=== PATIENT | male | born 1950 | race Caucasian/White ===

== ENCOUNTER 2022-05-13 11:06 | Outpatient (CLI) | payer MEDICARE, BC, SELFPAY ==
[2022-05-13 12:22] LABS: Albumin* 4.4 g/dL (3.3-5.0); Chloride* 110 mmol/L (96-114)
[2022-05-13 12:23] LABS: Potassium* 5.5 mmol/L (3.6-5.1); Sodium* 141 mmol/L (135-149)
[2022-05-13 12:25] LABS: Alkaline Phosphatase* 62 U/L (40-150); Aspartate Amino Transferase* 27 U/L (12-35); Bilirubin Total* 0.6 mg/dL (0.1-1.5); Blood Urea Nitrogen* 36 mg/dL (7-30); Carbon Dioxide* 23 mmol/L (20-32); Cholesterol* 125 mg/dL (90-199); Creatinine* 1.3 mg/dL (0.5-1.5); Estimated Glomerular Filt Rate 59 ml/min; Glucose* 143 mg/dL (60-115); Total Protein* 6.6 g/dL (6.0-8.3); Triglycerides* 91 mg/dL (40-149)
[2022-05-13 12:26] LABS: Alanine Aminotransferase* 21 U/L (4-50); Calcium* 9.4 mg/dL (8.4-10.6); HDL Cholesterol* 39 mg/dL (>=40); LDL Cholesterol Calculated 68 mg/dL (<100)
[2022-05-13 12:38] LABS: Creatinine Urine 261.9 mg/dL
[2022-05-13 12:46] LABS: Microalbumin Creatinine Ratio 0 mg/g (0-30); Microalbumin Urine 2 mg/dL
[2022-05-13 12:56] LABS: PSA Screen* 0.62 ng/mL (0.10-4.00)
== END 2022-05-13 11:07 | disposition home or self-care (01) ==
PROVIDERS: PCP Family Medicine; Visit Provider Family Medicine
DX: E11.9 Type 2 diabetes mellitus without complications (principal); I10 Essential (primary) hypertension; Z13.9 Encounter for screening, unspecified; N40.1 Benign prostatic hyperplasia with lower urinary tract symptoms; R35.0 Frequency of micturition; E78.5 Hyperlipidemia, unspecified
CPT/HCPCS: 80053; 80061; 82043; 82570; 84153

== ENCOUNTER 2022-09-16 08:31 | Outpatient (CLI) | payer MEDICARE, BC, SELFPAY ==
--- OUTSIDE RECORDS SUMMARY | 2022-09-20 12:26 | XMS_ITS | Encounter Summary ---
:1950 Author Organization [facility] [employer] Address [address] [address] Phone Care Team Providers Name Role Phone Nell Vanganda Raul SANCHEZ Unavailable Elsewhere, Pcp Primary Care Provider Unavailable Reason for Visit Reason Comments Sinus Pain X 4-5 DAYS, pain with some d rainage, headache, fatigue Encounter Details Date Type Department Care Team Description 12/14/[address] 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 Pulse 65 12/14/2016 12:13 PM POURING CRANE OPERATOR Temperature 36.8 ??C (98.3 ??F) 12/14/2016 12:13 PM POURING CRANE OPERATOR Respiratory Rate - - Oxygen Saturation 94% 12/14/2016 12:13 PM POURING CRANE OPERATOR Inhaled Oxygen Concentration - - Weight 123.8 kg (273 lb) 12/14/2016 12:13 PM POURING CRANE OPERATOR Height 177.8 cm (5' 10) 12/14/2016 12:13 PM POURING CRANE OPERATOR Body Mass Index 39.17 12/14/2016 12:13 PM POURING CRANE OPERATOR documented in this encounter Functional Status Functional Status Response Date of Assessment Patient's Vision Adequate to Safely Complete Daily No 09/26/2014 Activities Patient's Memory Adequate to Safely Complete Daily No 09/26/2014 Activities Cognitive Status Response Date of Assessment Patient's Judgment Adequate to Safely Complete Daily No 09/26/2014 Activities documented as of this encounter Patient Instructions Patient InstructionsArslan Rocha PA-C - 12/14/2016 12:50 PM CST Images from the original note were not included. Sinusitis (Antibiotic Treatment) The sinuses are air-filled spaces within the bones of the face. They connect to the inside of the nose.??Sinusitis??is an inflammation of the tissue lining the sinus cavity. Sinus inflammation can occur during a cold. It can also be due to allergies to pollens and other particles in the air. Sinusitiscan cause symptoms of sinus congestion and fullness. A sinus infection causes fever, headache and facial pain. There is often green or yellow drainage from the nose or into the back of the throat (post-nasal drip). You have been given antibiotics to treat this condition. Home care: ?? Take the full course of antibiotics as instructed. Do not stop taking them, even if you feel better. ?? Drink plenty of water, hot tea, and other liquids. This may help thin mucus. It also may promote sinus drainage. ?? Heat may help soothe painful areas of the face. Use a towel soaked in hot water. Or, international relations teacher theshower and direct the hot spray onto your face. Using a vaporizer along with a menthol rub at night may also help.? An??expectorant??containing guaifenesin may help thin the mucus and promote drainage from the sinuses. ?? Lqra-mkv-[id number]??decongestants??may be used unless a similar medicine was prescribed. Nasal sprays work the fastest. Use one that contains phenylephrine or oxymetazoline. First blow the nose gently. Then use the spray. Do not use these medicines more often than directed on the label or symptoms may get worse. You may also use tablets containing pseudoephedrine. Avoid products that combine ingredients, because side effects may be increased. Read labels. You can also ask the pharmacist for help. (NOTE:??Persons with high blood pressure should not use decongestants. They can raise blood pressure.) ?? Qrjw-fdl-mrrpobn??antihistamines??may help if allergies contributed to your sinusitis. ? Do not use nasal rinses or irrigation during an acute sinus infection, unless told to by your health care provider. Rinsing may spread the infection to other sinuses. ?? Use acetaminophen or ibuprofen to control pain, unless another pain medicine was prescribed. (If you have chronic liver or kidney disease or ever had a stomach ulcer, talk with your doctor before using these medicines. Aspirin should never be used in anyone under 18 years of age who is ill with a fever. It may cause severe liver damage.) ?? Don't smoke. This can worsen symptoms. Follow-up care Follow up with your healthcare provider or our staff if you are not improving within the next week. When to seek medical advice Call your healthcare provider if any of these occur: ?? Facial pain or headache becoming more severe ?? Stiff neck ?? Unusual drowsiness or confusion ?? Swelling of the forehead or eyelids ?? Vision problems, including blurred or double vision ?? Fever of??100.4??F (38??C)??or higher, or as directed by your healthcare provider ?? Seizure ?? Breathing problems ?? Symptoms not resolving within 10 days Date Last Reviewed: 01/23/2015 ?? [id number] [employer]. [address] [place] [address]. All rights reserved. This information is not intended as a substitute for professional medical care. Always follow your healthcare professional's instructions. 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 fluticasone propionate Place 2 Sprays into 16 g 0 01/2017 (FLONASE) 50 MCG/ACT both nostrils one nasal spray time a day. Shake gently before each use; alternate nostrils with each spray. azithromycin (ZITHROMAX) Take two tablets (500 6 Tab 0 12/14/2016 12/19/2016 250 MG tablet mg) on day 1, then take one tablet (250 mg) on days 2-5. documented in this encounter Progress Notes Arslan Rocha PA-C - 12/14/2016 12:54 PM CST HISTORY OF PRESENT ILLNESS: Jose Pabon is a 66 year old male who presents for evaluation of sinusitis. He had sinus and nasal congestion, nasal blockage, postnasal drip, headache, bilateral sinus pain and chills for 7 days. He denies a history of wheezing, shortness of breath and chest pain. Symptoms have worsened. Notes: noother symptoms. Previous treatments: rest and fluids Past Medical History Diagnosis Date ??? Diabetes mellitus type II ??? Eczema Hands and elbows ??? Hypertension ??? Obesity ??? Obstructive sleep apnea ??? Pancreatitis, acute 09/22/2011 Outpatient Prescriptions Marked as Taking for the 12/14/16 encounter (Office Visit) with Carlos, [facility] Urgent Medication Sig ??? azithromycin (ZITHROMAX) 250 MG tablet Take two tablets (500 mg) on day 1, then take one tablet (250 mg) on days 2-5. ??? fluticasone propionate (FLONASE) 50 MCG/ACT nasal spray Instill 2 Sprays nasally one time a day.Shake gently before each use; alternate nostrils with each spray. ??? cetirizine (ZYRTEC) 10 MG tablet Take 1 Tab by mouth one time a day. ??? metoprolol tartrate (LOPRESSOR) 50 MG tablet Take 1 Tab by mouth two times a day. ??? metFORMIN-XR (GLUCOPHAGE-XR) 500 MG 24 hour tablet TAKE ONE TABLET EVERY MORNING WITH BREAKFAST.SWALLOW WHOLE, DO NOT CRUSH, DIVIDE, OR CHEW. ??? glyBURIDE (DIABETA) 5 MG tablet TAKE ONE TABLET BY MOUTH EVERY MORNING WITH BREAKFAST ??? amLODIPine (NORVASC) 2.5 MG tablet Take 1 Tab by mouth one time a day. ??? Magnesium 250 MG Take 250 mg by mouth one time a day. ??? Magnesium 100 MG Cap Take 1 Tab by mouth as needed. ??? Misc. Devices Misc by Does not apply route. ??? betamethasone dipropionate 0.05 % cream Apply to affected area twice daily as needed ??? COMPOUNDED RX by INTRACAVERNOSAL route as needed (erectile dysfunction). ??? ARNAV CONTOUR TEST STRIP strip Test four times daily ??? Lancet Devices MISC 1 Each by Does not apply route four times a day. ??? Zinc 50 MG TABS Take 1 Tab by mouth as needed. ??? CHILDRENS ASPIRIN 81 MG chewable tablet 81 mg, ORAL, DAILY, Refills: 0, 02/06/09 18:34:01, Substitution Permitted, current med (Hx) ??? multivitamin (TAB-A-LISA) TABS 1 tablet, ORAL, DAILY, Refills: 0, 02/06/09 18:34:57, Substitution Permitted, current med (Hx) Allergies Allergen Reactions ??? Penicillins Anaphylaxis ??? Band Aid [Adhesive Tape] RASH History Smoking Status ??? Never Smoker Smokeless Tobacco ??? Never Used REVIEW OF SYSTEMS: Constitutional: feels ill and chills Head/Eyes/Ears/Nose/Throat: nasal congestion Cardiovascular: no chest pains or palpitations Respiratory: no cough or shortness of breath Gastrointestinal: no dysphagia, abdominal pain, nausea, vomiting, change in bowel habits, melena, hematochezia Genitourinary: no change in urination or blood in urine PHYSICAL EXAM: Vitals: 12/14/16 1213 BP: 128/71 Pulse: 65 Temp: 36.8 ??C (98.3 ??F) TempSrc: Tympanic Height: 5' 10 (1.778 m) Weight: 273 lb (123.8 kg) SpO2: 94% BMI (Calculated): 39.17 GENERAL APPEARANCE: Healthy; alert and oriented X3; no acute distress HEAD: Atraumatic; normocephalic; without lesions EYES: Conjunctiva, corneas and eyelids normal; pupils equal, round EARS: External ears normal; ear canals normal; tympanic membranes normal NOSE: POSITIVES: mucosa edematous MOUTH/OROPHARYNX: Normal lips, tongue, buccal mucosa and pharynx without lesions NECK: Supple with no nodes, jugular venous distention, thyromegaly or bruits LUNGS: Chest symmetric with normal anteroposterior diameter and no deformities; normal respiratory rate and rhythm, with no wheezes, rales or rubs. HEART: Regular rhythm and rate; S1 and S2 normal; no murmurs, heaves, thrills, clicks or rubs ASSESSMENT: (J32.9, B96.89) Bacterial sinusitis (primary encounter diagnosis) PLAN: Symptomatic therapy including over the counter medications, fluids, and rest Begin: Zithromax for 5 days. Begin: Flonase for 4 weeks Begin: Zyrtec for 4 weeks. Tylenol for headaches. Follow up if symptoms worsen if no improvements in symptoms. 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 10/10/152023 [place] [address] documented as of this encounter
--- OUTSIDE RECORDS SUMMARY | 2022-09-20 12:26 | XMS_ITS | Encounter Summary ---
:1950 Author Organization [employer] Address [address] [address] Phone Care Team Providers Name Role Phone Richardson Graham MD Primary Care Provider Reason for Referral Outgoing Referral - Provider Request (Routine) - Exempt Specialty Diagnoses / Procedures Referred By Contact Refer red To Contact Gastroenterology Diagnoses Dysphagia, unspecified dysphagia Richardson Graham MD [address] [place] [address] Referral ID Status Reason Start Date Expiration Date Visits Requ ested Visits Authorized [id number] Exempt 09/20/2015 09/20/2015 1 1 Comments Reason for referral: GI consult in [facility] [place] for dysphagia Referred to (facility name): ENTER this detail in Location/POS field above Comments section if known. Provider requested: ENTER this detail in To field above Comments section if known. --If unable to find facility or provide r, please enter all known details in this comments section. Referral made at the request of [facility] AND SIZER (Routine) - Closed Specialty Diagnoses / Procedures Referred By Contact Refer red To Contact General Surgery Diagnoses Sebaceous cyst Richardson Graham MD [facility] [address] 2023 [facility] [place] [address] [place] [address] Phone: Fax: Referral ID Status Reason Start Date Expiration Date Visits Requ ested Visits Authorized [id number] Closed 09/20/2015 04/02/2017 1 1 Comments Reason for Referral: Remove small sebace ous cyst mid back AND SIZER Reason for Visit Reason Comments Physical colonoscopy 2011 Imm/Inj flu Encounter Details Date Type Department Care Team Description 09/20/2015 Office Visit Richardson Cristina, PE (physi kavitha exam), annual (Primary Dx); CLINIC FAMILY MD Type 2 diabetes mellitus without complic ation (HCC); MEDICINE [address] Prostate cancer screening; 2023 [facility] Low vitamin D level; Street [place] Elevated parathyroid hormone ; [place] [phone] Sebaceous cyst; [phone] Need for prophy lactic vaccination and inoculation against influenza; (Work) Dysphagia, unspecified dysphagia; [phone] Peripheral poly neuropathy (Fax) Social History Tobacco Use Types Packs/Day Years Used Date Smoking Tobacco: Never Smokeless Tobacco: Never Alcohol Use Standard Drinks/Week Comments No 0 (1 standard drink = 0.6 oz pure alcoho l) occasional Sex Assigned at Date Recorded Not on file documented as of this encounter Last Filed Vital Signs Vital Sign Reading Time Taken Comments Blood Pressure 124/76 09/20/2015 8:25 AM [facility] Pulse 62 09/20/2015 8:25 AM [facility] Temperature - - Respiratory Rate - - Oxygen Saturation - - Inhaled Oxygen Concentration - - Weight 112 kg (247 lb) 09/20/2015 8:25 AM [facility] Height 177.8 cm (5' 10) 09/20/2015 8:25 AM [facility] Body Mass Index 35.44 09/20/2015 8:25 AM [facility] documented in this encounter Functional Status Functional Status Response Date of Assessment Patient's Vision Adequate to Safely Complete Daily No 09/26/2014 Activities Patient's Memory Adequate to Safely Complete Daily No 09/26/2014 Activities Cognitive Status Response Date of Assessment Patient's Judgment Adequate to Safely Complete Daily No 09/26/2014 Activities documented as of this encounter Ordered Prescriptions Prescription Sig Dispensed Refills Start Date End Date influenza virus vaccine Inject 0.5 mL into 0.5 mL 0 06/201509/20/2015 sam, Age 3-64 years, the muscle one time (FLUZONE) 0.5 for 1 dose. MLIndications: Need for prophylactic vaccination and inoculation against influenza documented in this encounter Progress Notes Richardson Graham MD - 09/20/2015 2:[address] [facility] ADDENDED COPY Patient Name: ALINE PABON Date of Service: 09/20/2015 : 1950 Age: 65Y Sex: M Site MRN: Patient Loc/Room #: [facility] FP/ Provider: Richardson Graham MD, Family Practice HISTORY AND PHYSICAL SITE: [facility] PROBLEMS: 1. Well male examination. 2. Diabetes. 3. Hypertension. 4. Leg swelling. 5. Dysphasia. 6. Renal insufficiency. SUBJECTIVE: Arsh overall has been quite healthy. He has diabetes. He is at goal for all 8 parameters, but we do notice his A1c has come up a little bit. He has decreased his metformin to 500 mg 1/2 tablet daily as recommended from nephrology this past spring. I do think with his creatinine the way it is he could take a little bit more metformin. He has been off the glyburide also because he had some lows and because of his having lost weight and feeling well; his A1c has been excellent here this past spring. Options are discussed. He has lost 12 pounds of weight we are going to recheck his A1c now.If the patterns downward I think we can just stay with what he is doing and see if we cannot get hisA1c down a little bit further with weight loss. In the long run if it stays a little high, trouble getting down, I think it is very safe for him to increase the metformin to a full tablet. He could consider either Invokana or Januvia; we went over some of the side effects, or Victoza or he could try again a very low dose of glyburide, but I would suggest instead using the Amaryl 2 mg just 1/2 tablet.I think that it would bring it down nicely without having too many lows. He is going to see what hisnumbers are and he is going to work on the weight loss and then we will look at some options on adjusting medication. Renal insufficiency. His creatinine has remained relatively stable. He has seen nephrology. I think we just monitor this. He is drinking good amount of water. Constipation. He has noticed his stools are quite hard. When he took a fair amount of celery it seemed to clear up. He is using a bran product on a daily basis and bran muffins, drinking a good amount of water, but despite this he has very hard her stools. Will recheck his TSH. Encouraged him to continue drinking water, plenty of walking and exercise and continue a bran product. I think if the bran muffins are not working he should use MiraLAX on a daily basis. He had a colonoscopy in 2011. He has had episodes of dysphagia last year. Last summer he was out fishing and actually food got stuck in his throat. He just could not swallow, severe spasm for quite a few hours. He has been seen in our endoscopy here last in 2011. Biopsies were done then. We feel it is time for him to get a second opinion and we are setting appointment in [place] for an opinion concerning this. I note his endoscopy report, esophageal biopsies showed no evidence of eosinophilic esophagitis and the actual report showed normal endoscopy. PFSH including medications updated in the EHR. REVIEW OF SYSTEMS: A 10-point review is otherwise negative. No chest pain on exertion. He was working very hard this summer and just physically felt tired. No increased shortness of breath. No difficulty with vision, hearing, headaches. Does have the constipation. Urinating without difficulty. He is working with Dr. Tovar concerning ED. He felt some swelling of his legs, but did not notice any swelling. On examination today, he does have some 1+ ankle edema and I think it is due to the amlodipine. We talked about being careful with salt and using support hose, leg elevation when he can. In the long run if this bothers him we will try an alternative amlodipine. At this point it is only mild and I think we can continue on current medication. We will include a B12 and TSH to look for the possibility ofperipheral neuropathy. I checked his feet and there was good circulation. EXAM: He is alert and comfortable with blood pressure at 124/76, pulse 62, weight is 247, down actually up 12 pounds from just a few weeks ago. HEENT - TMs pearly. Nose/throat - normal. Thyroid - normal. Carotid pulses are full, no bruits. Lungs are clear. Heart - regular without murmur. Skin - he does have a small sebaceous cyst mid back. He would like to have this removed. No other lesions. ASSESSMENT: 1. Cardiac risk - negative smoking, negative blood pressure. Cholesterol is very good. We did offer him a cardiac evaluation if he is concerned. At this point I think he is doing very well and it is optional. 2. Cancer screen - he has had a PSA that is normal. In February we will repeat that at his yearly examination now and his colonoscopy was normal in 2011. I looked at his skin and there are no lesions. Immunizations are up to date except for flu shot today. PROBLEMS: 1. Dysphagia. Appointment in [place] [facility]. 2. Sebaceous cyst on his back. Appointment with surgery for removal. 3. Mild ankle swelling, likely due to the amlodipine. We talked about treatment. 4. Diabetes. Overall meeting all parameters, but I think it would be worthwhile for him to continue weight loss. Consider alternative medications as above if his A1c is not coming down. 5. Hypertension, good control. 6. ED followed by Dr. Tovar. 7. Renal insufficiency, stable with current treatment and he is drinking enough water. ADDENDUM Positive family history of some prostate cancer. He would like a prostate exam. It is completed. Prostate is flat. It is 1+. No nodularity. Normal consistency. No rectal masses. Richardson Graham MD [facility] [address] cc: /RFM Job ID: [id number] /lb Document ID: [id number] A: 09/20/2015 tjw(add) AND SIZER documented in this encounter Miscellaneous Notes Clinical Note - Lucille Alarcon LPN - 09/08/2015 10:06 AM CST This chart was prepped for visit by Lucille Alarcon LPN on 09/08/2015. AND SIZER documented in this encounter Plan of Treatment Not on filedocumented as of this encounter Procedures Procedure Name Priority Date/Time Associated Diagnosis Comme nts VITAMIN D TOTAL Routine 09/20/2015 9:31 Low vitamin D level Re sults for this AM [facility] procedure are i n the results section. GARCIA PARATHYROID Routine 09/20/2015 9:31 Elevated parathyroid Results for this HORMONE (PTH), S AM [facility] hormone procedure a re in the results section. BASIC METABOLIC Routine 09/20/2015 9:31 Type 2 diabetes Result s for this PANEL AM [facility] mellitus without procedure a re in complication (HCC) the resul ts section. HEMOGLOBIN A1C Routine 09/20/2015 9:31 Type 2 diabetes Results for this AM [facility] mellitus without procedure a re in complication (HCC) the resul ts section. PSA DIAGNOSTIC Routine 09/20/2015 9:31 Prostate cancer Results for this AM [facility] screening procedure are i n the results section. THYROID STIMULATING Routine 09/20/2015 9:31 Peripheral Resul ts for this HORMONE AM [facility] polyneuropathy procedure are in the results section. LDL CHOLESTEROL Routine 09/20/2015 9:31 Type 2 diabetes Result s for this AM [facility] mellitus without procedure a re in complication (HCC) the resul ts section. VITAMIN B12 Routine 09/20/2015 9:31 Peripheral Results for this AM [facility] polyneuropathy procedure are in the results section. documented in this encounter Results TSH (09/20/2015 9:31 AM [facility] SI[facility]ER) athologist Signature TSH 2.08 0.40 - 3.99 09/20/2015 [facility] uIU/mL 1:44 PM [facility] Specimen Anatomical Collection Method Collection Time Receive d Time (Source) Location / / Volume Laterality 09/20/2015 9:31 AM 5 [facility] 12:58 PM [facility]ER Richardson Graham MD EC CHEMISTRY ORDERABLES ABN Performing Organization Address City/State/ZIP Code Phon e Number [facility] [address] [place] [address] LABORATORY (ABNORMAL) VITAMIN B12 (09/20/2015 9:31 AM [facility]BAND SIZER) athologist Signature VITAMIN B12 1,157 (H) 213 - 816 09/20/[address] pg/ml 2:03 PM [facility]AND SIZ[facility] LABOR[facility]ORY Specimen Anatomical Collection Method Collection Time Receive d Time (Source) Location / / Volume Laterality 09/20/2015 9:31 AM 5 [facility] 12:58 PM [facility] SI[facility]ER Richardson Graham MD EC CHEMISTRY ORDERABLES Performing Organization Address City/[facility]/ZIP Code Phon e Number [facility] [address] [place], [place] [address] LABORATORY [place] PARATHYROID HORMONE (PTH), S (09/20/2015 9:31 AM [facility] SIZER) athologist Signature [place] Parathyroid 64 15 - 65 09/21/2015 [facility] D Hormone (PTH), S pg/mL 9:32 AM [facility] FEED Comment: Test Performed by: [facility] [address] [place] [address] Media Reporter: Jovanni Cummings II, M.D., Ph.D. Specimen Anatomical Collection Method Collection Time Receive d Time (Source) Location / / Volume Laterality 09/20/2015 9:31 AM 5 [facility] 12:54 PM [facility] SIZER Richardson Graham MD EC LAB SEND OUT ORDERABLES Performing Organization Address City/[facility]/ZIP Code Phon e Number [facility] FEED (ABNORMAL) VITAMIN D TOTAL (09/20/2015 9:31 AM [facility]BAND SIZER) athologist Signature Vitamin D 23 (L) 30 - 96 09/20/2015 [facility] Total ng/mL 8:00 PM [facility] CLINICAL LABORATORY Comment: ??[facility] Reference Range Deficiency ?<10 ?? ng/mL Insufficiency ?? 10-29 ng/mL Sufficiency ? 30-96 ng/mL Toxicity ?>96 ?? ng/mL Specimen Anatomical Collection Method Collection Time Receive d Time (Source) Location / / Volume Laterality 09/20/2015 9:31 AM 5 7:11 [facility] PM [facility]ZER Richardson Graham MD EC LAB SEND OUT ORDERABLES A BN Performing Organization Address City/[facility]/ZIP Code Phon e Number [facility] CLINICAL LABORATORY [address] [place] [address] PSA (09/20/2015 9:31 AM [facility] SIZER) athologist Signature Prostate 0.49 0.00 - 09/20/2015 [facility] Specific 4.00 ng/mL 2:03 PM [facility] Antigen LABORATORY Comment: PSA values determined on patient samples by differing testing procedures cannot be directly compared with one ano ther. [facility] use [employer] Analyzers utilizing Chemiluminescence Microparticle Immunoassay Technology (CMIA). Specimen Anatomical Collection Method Collection Time Receive d Time (Source) Location / / Volume Laterality 09/20/2015 9:31 AM 5 [facility] 12:58 PM [facility] SIZER Richardson Graham MD EC CHEMISTRY ORDERABLES ABN Performing Organization Address City/[facility]/ZIP Code Phon e Number [facility] [address] [place], [place] [address] LABORATORY LDL CHOLESTEROL (09/20/2015 9:31 AM [facility] SIZER) athologist Signature LDL Cholesterol 102 mg/dL 09/20/2015 [facility]. 10:[address] [facility] LABORATORY Comment: LDL Cholesterol Reference Ranges Optimal: ?<100 ? mg/dL Near Optimal: ? 100-129 ??mg/dL Borderline High: ??130-159 ??mg/dL High: ? 160-189 ??mg/dL Very High: ?>189 ? mg/dL Specimen Anatomical Collection Method Collection Time Receive d Time (Source) Location / / Volume Laterality 09/20/2015 9:31 AM 5 9:41 ENDBAND SIZER AM ENDBAND SIZER Richardson Graham MD EC CHEMISTRY ORDERABLES ABN Performing Organization Address City/[facility]/ZIP Code Phon e Number [facility] [address] [place] [address] LABORATORY (ABNORMAL) BASIC MET PROF (09/20/2015 9:31 AM [facility]BAND SIZER) athologist [facility] SODIUM 139 134 - 143 09/20/2015 [facility] mEq/L 10:22 AM [facility] LABORATORY POTASSIUM 4.6 3.4 - 5.1 09/20/2015 [facility] mEq/L 10:22 AM [facility] LABOR[facility]ORY Chloride 103 99 - 110 09/20/2015 [facility] mEq/L 10:22 AM [facility] LABOR[facility]ORY CO2 27 19 - 29 09/20/2015 [facility] mEq/L 10:22 AM [facility] LABORATORY BUN 26 (H) 5 - 24 09/20/2015 [facility] mg/dL 10:22 AM [facility] LABORATORY Creatinine 1.71 (H) 0.70 - 09/20/2015 [facility] 1.20 mg/dL 10:22 AM [facility] LABORATORY GFR CALC 40 (A) 09/20/2015 [facility] 10:22 AM [facility] LABORATORY Comment: GFR Normal: >60 mL/min/1.73 m2 Calcium 9.7 8.4 - 10.5 mg/dL 09/20/2015 10:22 AM [facility] LAB[facility]AT[facility] ANION GAP 9 3 - 15 09/20/2015 10:22 AM [facility] LAB[facility] GLUCOSE 349 (H) 70 - 100 mg/dL 09/20/2015 10:22 AM [facility]BAND SIZER E [facility] LABORATORY Specimen Anatomical Collection Method Collection Time Receive d Time (Source) Location / / Volume Laterality 09/20/2015 9:31 AM 5 9:41 ENDBAND SIZER AM [facility]BAND SIZER Richardson Graham MD EC CHEMISTRY ORDERABLES Performing Organization Address City/State/ZIP Code Phon e Number [facility] [address] [place] [address] LABORATORY (ABNORMAL) A1C(HGB AIC) (09/20/2015 9:31 AM [facility]BAND SIZER) athologist Signature A1C (HGB AIC) 9.8 (H) 4.0 - 6.0 09/20/2015 ST. % 9:[address] [facility] LABORATORY Est Average 235 mg/dL 09/20/2015 [facility] Glucose 9:[address] [facility] Comment: According to ADA guidelines, the estimat ed average glucose (eAG) will be calculated for all HgbA1c results. Specimen Anatomical Collection Method Collection Time Receive d Time (Source) Location / / Volume Laterality 09/20/2015 9:31 AM 5 9:41 [facility] SIZER AM [facility]BAND SIZER Richardson Graham MD EC CHEMISTRY ORDERABLES ABN Performing Organization Address City/State/ZIP Code Phon e Number [facility] [address] [place] [address] LABORATORY documented in this encounter Visit Diagnoses Diagnosis PE (physical exam), annual - Primary Routine general medical examination at a health care facility Type 2 diabetes mellitus without complic ation (HCC) Prostate cancer screening Special screening for malignant neoplasm of prostate Low vitamin D level Elevated parathyroid hormone Unspecified endocrine disorder Sebaceous cyst Need for prophylactic vaccination and in oculation against influenza Dysphagia, unspecified dysphagia Peripheral polyneuropathy Unspecified hereditary and idiopathic pe ripheral neuropathy documented in this encounter Discontinued Medications Medication Sig Discontinue Reason Start Date End Date glyBURIDE (DIABETA) 5 TAKE ONE TABLET BY Changed to an 04/03/2015 09/20/2015 MG tablet MOUTH EVERY MORNING alternate therapy WITH BREAKFAST documented as of this encounter Historical Medications This list may reflect changes made after this encounter. Medication Sig Dispensed Refills Start Date End Date Magnesium 250 MG Take 250 mg by mouth one time 0 a day. added in this encounter Orders Immunization/Injection Count Last Ordered Date First O rdered Date FLU VACC, QUAD, PF 1 09/20/2015 IMMUNIZATION ADMIN - INFLUENZA 1 09/20/2015 REFERRAL Count Last Ordered Date First Ordered Date APPT WITH [facility] 1 2014 APPT WITH [facility]AL [facility]GERY [facility] 1 015 documented in this encounter Care Teams Optical Glass Inspector Relationship Specialty Start Date End Date Richardson Graham MD PCP - General Family Medicine 07/19/14 09/22/[address] [place] [address] documented as of this encounter
--- OUTSIDE RECORDS SUMMARY | 2022-09-20 12:26 | XMS_ITS | Encounter Summary ---
:1950 Author Organization [employer] Address [address] [address] Phone Care Team Providers Name Role Phone Richardson Graham MD Primary Care Provider Reason for Visit Reason Comments Erectile Dysfunction Prostate Problem hx of BPH Encounter Details Date Type Department Care Team Description 06/12/2015 Office Visit [facility] QualeyFelice, BPH (benign prostatic hyperp lasia) (Primary Dx); [address] [facility] Other male erectile dysfunction [place] [address] 2023 [facility] [phone] [place] [address] Social History Tobacco Use Types Packs/Day Years Used Date Smoking Tobacco: Never Smokeless Tobacco: Never Alcohol Use Standard Drinks/Week Comments No 0 (1 standard drink = 0.6 oz pure alcoho l) occasional Sex Assigned at Date Recorded Not on file documented as of this encounter Last Filed Vital Signs Vital Sign Reading Time Taken Comments Blood Pressure 136/91 06/12/2015 3:38 PM CDT Pulse 58 06/12/2015 3:38 PM CDT Temperature - - Respiratory Rate 16 06/12/2015 3:27 PM CDT Oxygen Saturation - - Inhaled Oxygen Concentration - - Weight - - Height - - Body Mass Index - - documented in this encounter Functional Status Functional Status Response Date of Assessment Patient's Vision Adequate to Safely Complete Daily No 09/26/2014 Activities Patient's Memory Adequate to Safely Complete Daily No 09/26/2014 Activities Cognitive Status Response Date of Assessment Patient's Judgment Adequate to Safely Complete Daily No 09/26/2014 Activities documented as of this encounter Progress Notes Felice Tovar MD - 06/13/2015 11:55 AM CDT [facility] Patient Name: ALINE PABON Date of Service: 06/12/2015 : 1950 Age: 65Y Sex: M Site MRN: Patient Loc/Room #: BRDUR/ Provider: Felice Tovar MD, Urology OFFICE NOTE SITE: [facility] SUBJECTIVE: Arsh is here with chief complaint of erectile dysfunction. He has received Trimix from [facility]. He has diabetes and history of chronic renal failure. PSA was excellent in February of 2015 at 0.46. Problem list and medications reviewed. He denies any significant lower urinary tract symptoms. Overall, he looks and feels well. Quality of life score due to his urinary symptoms of 1. No pain, hematuria, or problems with bowel movements. REVIEW OF SYSTEMS: Otherwise negative. The technique of penile injection therapy discussed with the model. The patient has tried this at home without much success. His is in attendance to learn the technique as well. OBJECTIVE: On examination, Arsh appears pleasant, alert, in no acute distress. Abdomen is slightly protuberant. Penis and scrotal contents - normal. Blood pressure 157/85, pulse 57, respiratory rate 16; 0.4 mL of Trimix was injected in the right corpus with an excellent result. PLAN: The patient was told to call if he has prolonged erection. Otherwise he will return here on a p.r.n. basis. In addition to the injection, a 15 minute appointment, over 50% spent discussing technique and coordinating care. Felice Tovar MD [facility] Urology cc: /BJQ Job ID: [id number] /lots Document ID: [id number] documented in this encounter Plan of Treatment Not on filedocumented as of this encounter Procedures Procedure Name Priority Date/Time Associated Diagnosis Comme nts INJECTION, SUBQ/IM Routine 06/12/2015 8:42 PM Other male erect ile CDT dysfunction URINALYSIS, REFLEX Routine 06/12/2015 3:20 PM BPH (benign Res ults for this TO CULTURE CDT prostatic procedure are i n hyperplasia) the results section. documented in this encounter Results UA TO CULTUR PRN (06/12/2015 3:20 PM CDT) [facility] Method Time Signature Type CVMS 06/12/[address] 3:28 PM CDT [facility] Color Yellow Yellow 06/12/[address] 3:29 PM CDT [facility] Appearance Clear Clear 06/12/[address] 3:29 PM T [facility] Urine Specific 1.015 1.003 - 06/12/[address] [place] 1.035 3:29 PM T [facility] Urine pH 5.0 5.0 - 8.0 06/12/[address] 3:29 PM CDT [facility] Urine Leukocyte Neg Neg 06/12/2015 ST. Esterase 3:29 PM T [facility] Urine Nitrites Neg Neg 06/12/[address] 3:29 PM T [facility] Urine Protein Neg Neg-Trace 06/12/[address] mg/dL 3:29 PM T [facility] Urine Glucose Neg Neg mg/dL 06/12/[address] 3:29 PM T [facility] Urine Ketone Neg Neg mg/dL 06/12/[address] 3:29 PM T [facility] Microscopic Not Indicated 06/12/2015 ST. Exam: 3:29 PM T [facility] Comment: Please Note: A routine urine not reflexing to a micro scopic exam automatically means the dipstick blood t est is negative. Urine WBC's Not Indicated 0 - 8 /HPF 06/12/2015 3:29 PM [facility] Urine RBC's Not Indicated 0 - 3 /HPF 06/12/2015 3:29 PM Jak [place] CDT [facility] Urine Culture Not Indicated 06/12/2015 3:[address] [facility] Reflex [facility] Specimen Anatomical Collection Method Collection Time Receive d Time (Source) Location / / Volume Laterality COLLAR STARCHER 06/12/2015 3:20 PM 06/12/20 15 3:28 MID-STREAM URINE CDT PM CDT SPECIMEN OBTAINED BY CLEAN CATCH PROCEDURE / Unknown Felice Tovar MD EC URINE ORDERABLES Performing Organization Address City/State/ZIP Code Phon e Number [facility] documented in this encounter Visit Diagnoses Diagnosis BPH (benign prostatic hyperplasia) - Radha edilberto Unspecified hyperplasia of prostate with out urinary obstruction and other lower urinary tract symptoms (LUTS) Other male erectile dysfunction documented in this encounter Discontinued Medications Medication Sig Discontinue Reason Start Date End Date losartan (COZAAR) 25 MG Take 1 Tab by mouth Other 03/02/2015 06/12/2015 tablet one time a day. documented as of this encounter Orders Procedures Count Last Ordered Date First Ordered Date INJECTION, SUBQ/IM 1 06/12/2015 documented in this encounter Care Teams Filler Spreader Relationship Specialty Start Date End Date Richardson Graham MD PCP - General Family Medicine 07/19/14 09/22/[address] [id number] documented as of this encounter
--- OUTSIDE RECORDS SUMMARY | 2022-09-20 12:26 | XMS_ITS | Encounter Summary ---
:1950 Author Organization [employer] Address [address] [address] Phone Care Team Providers Name Role Phone Richardson Graham MD Primary Care Provider Reason for Visit Reason Comments Referral Critical access hospital Encounter Details Date Type Department Care Team Description 09/21/2015 Notes [facility] Geovanna Lutz Ref[facility] 2023 [facility] [place], [place] [address] Social History Tobacco Use Types Packs/Day Years Used Date Smoking Tobacco: Never Smokeless Tobacco: Never Alcohol Use Standard Drinks/Week Comments No 0 (1 standard drink = 0.6 oz pure alcoho l) occasional Sex Assigned at Date Recorded Not on file documented as of this encounter Functional Status Functional Status Response Date of Assessment Patient's Vision Adequate to Safely Complete Daily No 09/26/2014 Activities Patient's Memory Adequate to Safely Complete Daily No 09/26/2014 Activities Cognitive Status Response Date of Assessment Patient's Judgment Adequate to Safely Complete Daily No 09/26/2014 Activities documented as of this encounter Progress Notes Geovanna Lutz - 09/21/2015 9:38 AM CST Referral received and faxed to Critical access hospital. Patient will receive a call to schedule appointment from that facility once patient's chart/ information have been reviewed. For questions, please have patient call [phone] to speak with scheduling office. Thank you R BUILDER documented in this encounter Plan of Treatment Not on filedocumented as of this encounter Visit Diagnoses Not on filedocumented in this encounter Care Teams Manager Quality Compliance Relationship Specialty Start Date End Date Richardson Graham MD PCP - General Family Medicine 07/19/14 09/22/[address] [address] documented as of this encounter
--- OUTSIDE RECORDS SUMMARY | 2022-09-20 12:26 | XMS_ITS | Encounter Summary ---
:1950 Author Organization [employer] Address [address] [address] Phone Care Team Providers Name Role Phone Richardson Graham MD Primary Care Provider Brenda Vang-Raul Unavailable Encounter Details Date Type Department Care Team Description 12/19/[address] [facility] Sachin Naik, Outpatient Tab garcia CNA 2023 [place], [place] [id number] Social History Tobacco Use Types Packs/Day Years [...] 09/26/2014 Activities documented as of this encounter Miscellaneous Notes Telephone Encounter - Becca Naik CNA - 12/19/2015 10:37 AM BURRER MACHINE Patient is due for a Lab only; fasting for diabetes and hypertension. I have attempted to contact this patient by phone to notify of the need for a CDM visit with the following results: patient declined appointment with the reason given of will call on 01/04.. ER MACHINE documented in this encounter Plan of Treatment Not on filedocumented as of this encounter Visit Diagnoses Not on filedocumented in this encounter Care Teams Tool And Die Technician Relationship Specialty Start Date End Date Richardson Graham MD PCP - General Family Medicine 07/19/14 09/22/[address] [id number] Brenda Vang PA-C Family Medicine 10/10/152023 [place] [address] documented as of this encounter
--- OUTSIDE RECORDS SUMMARY | 2022-09-20 12:26 | XMS_ITS | Encounter Summary ---
:1950 Author Organization [employer] Address [address] [place] [phone] Phone Care Team Providers Name Role Phone Richardson Graham MD Primary Care Provider Brenda Vang PA-Raul Unavailable Reason for Visit Reason Onset Date Comments Refill Request 03/03/2016 metformin and metopr olol Encounter Details Date Type Department Care Team Description 03/03/[address] [facility] NURSE Grant Graham MD Refill Request [facility] [address] [facility] (metformin and [address] metoprolol) [place] [address] [place] [id number] (Wo rk) Social History Tobacco Use Types Packs/Day Years [...] Sig Dispensed Refills Start Date End Date metFORMIN-XR TAKE ONE TABLET EVERY 90 Tab 2 03/04/2016 (GLUCOPHAGE-XR) 500 MG 24 MORNING WITH hour tabletIndications: BREAKFAST. SWALLOW Type 2 diabetes mellitus WHOLE, DO NOT CRUSH, without complication (HCC) DIVIDE, OR CHEW. metoprolol tartrate Take 1 Tab by mouth 180 Tab 2 016 (LOPRESSOR) 50 MG tablet two times a day. documented in this encounter Miscellaneous Notes Telephone Encounter - Mary Ochoa RN - 03/04/2016 10:07 AM CDT Richardson Graham MD Patient moved to [place], [place] and will be establish care with a new provider there in the next couple months. Patient is wondering if you would refill his metformin and metoprolol tartrate. Medication pended per your review. Telephone Encounter - Leyla Pedroza RN - 03/03/2016 8:41 PM CDT Please call the patient and/or pharmacy during office hours to clarify current dose/med. Med list shows him using the 500mg XR form but this request below is for 1000mg ER moderate release. Rx requested: Metformin 1000mg ER moderate release Take one every morning Patient last seen in PCP's department: 12 9 15 Pertinent ancillary test(s): Lab Results Component Value Date HGA1C 6.3 01/05/2016 Lab Results Component Value Date CREAT 1.54 01/05/2016 Lab Results Component Value Date GFR 46 01/05/2016 Telephone Encounter - Sandra Lara RN - 03/03/2016 12:38 PM CDT Faxed refill request received from the pharmacy for: Metformin 1000 MG ER Mod Release Sig: Take one tablet by mouth every morning. Swallow whole do not crush divide or chew Quantity: 90 documented in this encounter Plan of Treatment Not on filedocumented as of this encounter Visit Diagnoses Diagnosis Type 2 diabetes mellitus without complic ation (HCC) documented in this encounter Discontinued Medications Medication Sig Discontinue Reason Start Date End Date metoprolol tartrate TAKE ONE TABLET BY 02/27/2016 (LOPRESSOR) 50 MG tablet MOUTH TWICE DAILY metFORMIN-XR TAKE ONE TABLET 03/02/2015 03/04/2016 (GLUCOPHAGE-XR) 500 MG 24 EVERY MORNING WITH hour tabletIndications: BREAKFAST. SWALLOW Type 2 diabetes mellitus WHOLE, DO NOT without complication CRUSH, DIVIDE, OR (HCC) CHEW. documented as of this encounter Care Teams Demurrage Clerk Relationship Specialty Start Date End Date Richardson Graham MD PCP - General Family Medicine 07/19/14 09/22/[address] [id number] Brenda Vang PA-C Family Medicine 10/10/152023 [place], [place] [address] documented as of this encounter
--- OUTSIDE RECORDS SUMMARY | 2022-09-20 12:26 | XMS_ITS | Encounter Summary ---
:1950 Author Organization [employer] Address [address] [address] Phone Care Team Providers Name Role Phone John Arroyo MD Primary Care Provider Brenda Vang PA-Raul Unavailable Reason for Visit Reason Comments Refill Request Metoprolol tartrate Encounter Details Date Type Department Care Team Description 02/26/2016 Refill [facility] Olivia Arroyo MD Refill Request FAMILY MEDICINE [address] (Metoprolol tartrate) 2023 [place] [address] [place] [id number] (Wo rk) Social History Tobacco Use Types [...] Sig Dispensed Refills Start Date End Date metoprolol tartrate TAKE ONE TABLET BY 180 Tab 2 02/27/20 16 03/04/2016 (LOPRESSOR) 50 MG tablet MOUTH TWICE DAILY documented in this encounter Miscellaneous Notes Telephone Encounter - Susy Paulson RN - 02/27/2016 10:36 PM CDT The refill request is Ok to authorize per the [facility] Medication Refill Protocol. Telephone Encounter - Utility, Refill Wizard - 02/26/2016 5:11 PM CDT metoprolol tartrate (LOPRESSOR) 50 MG tablet [Pharmacy Med Name: METOPROLOL TARTRATE 50 MG TAB] - REFILL: 9 months - PROTOCOL: Cardiovascular: Beta Blockers - Propranolol, Atenolol, Metoprolol - RATIONALE: This refill should last until the patient is due for an office visit check, DBP check and SBP check. - LAST QUALIFYING VISIT WITH JOHN ARROYO F: 09/20/2015 - NEXT SCHEDULED VISIT: None - MEDICATION STARTED: 09/23/2011 - LAST REFILLED ON: 07/18/2015, QTY: 180, Refills: 2, Sig: take one tablet by mouth twice daily (unchanged) - LAST FILL DATE FROM PHARMACY: 01/15/2016 - SBP: 124.0mm Hg on 09/20/2015 - DBP: 76.0mm Hg on 09/20/2015 ADDITIONAL SCHEDULING ACTIONS TAKEN: - OFFICE VISIT (Sent to RX Scheduling for multiple medications including glyBURIDE (DIABETA) 5 MGtablet) Powered by [employer], Reference: [id number], 02/26/2016 5:11:31 PM CDT, Pool: ARLENE ([id number]) documented in this encounter Plan of Treatment Not on filedocumented as of this encounter Visit Diagnoses Not on filedocumented in this encounter Discontinued Medications Medication Sig Discontinue Reason Start Date End Date metoprolol tartrate TAKE ONE TABLET BY 07/18/2015 (LOPRESSOR) 50 MG tablet MOUTH TWICE DAILY documented as of this encounter Care Teams Terminal Manager Relationship Specialty Start Date End Date John Arroyo MD PCP - General Family Medicine 07/19/14 09/22/[address] [address] Brenda Vang PA-C Family Medicine 10/10/152023 [place], [place] [address] documented as of this encounter
--- OUTSIDE RECORDS SUMMARY | 2022-09-20 12:26 | XMS_ITS | Encounter Summary ---
:1950 Author Organization [employer] Address [address] [address] Phone Care Team Providers Name Role Phone John Arroyo MD Primary Care Provider Brenda Vang PA-Raul Unavailable Reason for Visit Reason Comments Refill Request Encounter Details Date Type Department Care Team Description 12/23/2015 Refill [facility] Olivia Arroyo MD Refill Request FAMILY MEDICINE [address] [facility] [place] [address] [place] [address] [phone] Social History Tobacco Use Types Packs/Day Years [...] this encounter Miscellaneous Notes Telephone Encounter - Violeta Billy RN - 12/25/2015 5:22 AM CDT Refill denied. Duplicate request. Order Providers ?? Prescribing Provider Encounter Provider ?? John Arroyo MD Macy, Roger F, MD ?? Medication Detail ?? Disp Refills Start End ?? glyBURIDE (DIABETA) 5 MG tablet 90 Tab 3 12/24/2015 ?? Sig: TAKE ONE TABLET BY MOUTH EVERY MORNING WITH BREAKFAST ?? E-Prescribing Status: Receipt confirmed by pharmacy (12/24/2015 10:21 AM CDT) ?? Pharmacy ?? [id number] - [address] Telephone Encounter - Utility, Refill Wizard - 12/23/2015 5:01 PM CST glyBURIDE (DIABETA) 5 MG tablet [Pharmacy Med Name: GlyBURIDE Oral Tablet 5 MG] - WARNING #1: This is a re-requested duplicate that should be manually reviewed. - WARNING #2: A duplicate request was processed on 12/22/2015. - WARNING #3: The requested medication was discontinued on 09/20/2015 by JOHN ARROYO. - REFILL: 3 months (if violations and warnings resolved) - VIOLATION: HBA1C is abnormal (9.8% is greater than 7.9%) - PROTOCOL: Endocrinology: Diabetes - Sulfonylureas - RATIONALE: This is a courtesy refill. Patient is overdue for a(n) HBA1C check. This will be the last refill authorized by the protocol. - LAST QUALIFYING VISIT WITH JOHN ARROYO: 09/20/2015 - NEXT SCHEDULED VISIT: None - MEDICATION STARTED: 09/15/2012 - LAST REFILLED ON: 04/03/2015, QTY: 90, Refills: 1, Sig: take one tablet by mouth every morning with breakfast (unchanged) - LAST FILL DATE FROM PHARMACY: 09/22/2015 - HBA1C: 9.8% on 09/20/2015 Powered by [employer], Reference: [id number], 12/23/2015 5:01:48 PM PUBLIC RELATIONS, Pool: NCL ([id number]) documented in this encounter Plan of Treatment Not on filedocumented as of this encounter Visit Diagnoses Not on filedocumented in this encounter Care Teams Clinical Dental Technician Relationship Specialty Start Date End Date John Arroyo MD PCP - General Family Medicine 07/19/14 09/22/[address] [address] Brenda Vang PA-C Family Medicine 10/10/152023 [place], [place] [address] documented as of this encounter
--- OUTSIDE RECORDS SUMMARY | 2022-09-20 12:26 | XMS_ITS | Encounter Summary ---
:1950 Author Organization [employer] Address [address] [address] Phone Care Team Providers Name Role Phone John Arroyo MD Primary Care Provider Brenda Vang PA-Raul Unavailable Reason for Visit Reason Comments Refill Request ov due, letter sent Encounter Details Date Type Department Care Team Description 02/26/2016 Telephone [facility] Scheduling, Refil l Refill Request (ov due, FAMILY MEDICINE letter sent) 2023 [facility] [place] [id number] Social History Tobacco Use Types Packs/Day Years [...] this encounter Miscellaneous Notes Telephone Encounter - Magdalena Díaz CMA - 02/28/2016 12:19 PM CDT A letter or [employer] message was sent to patient at this time. Telephone Encounter - Utility, Refill Wizard - 02/26/2016 5:11 PM CDT SCHEDULE THE FOLLOWING: - OFFICE VISIT BY: 03/18/2016 (Coming due as of 03/18/2016 for multiple medications including glyBURIDE (DIABETA) 5 MG tablet) - LAST QUALIFYING VISIT WITH JOHN ARROYO: 09/20/2015 - NEXT SCHEDULED VISIT: None - NEXT LAB APPOINTMENT: None Powered by [employer], Reference: [id number], 02/26/2016 5:11:31 PM CDT, Pool: NCL ([id number]) documented in this encounter Plan of Treatment Not on filedocumented as of this encounter Visit Diagnoses Not on filedocumented in this encounter Care Teams Senior Ux Developer Relationship Specialty Start Date End Date John Arroyo MD PCP - General Family Medicine 07/19/14 09/22/[address] [address] Brenda Vang PA-C Family Medicine 10/10/152023 [place], [place] [address] documented as of this encounter
--- OUTSIDE RECORDS SUMMARY | 2022-09-20 12:26 | XMS_ITS | Encounter Summary ---
:1950 Author Organization [employer] Address [address] [address] Phone Care Team Providers Name Role Phone Richardson Graham MD Primary Care Provider Reason for Visit Reason Comments Employment Physical Encounter Details Date Type Department Care Team Description 08/14/2015 [facility] of Transportation (DOT) examination for shelli licence (Primary Dx); [facility]INIC FAMILY J, CAPONIZER, WIRE PHOTO OPERATOR NEWS Essential hypertension, benign; MEDICINE [address] [place] [address] Type 2 diabetes mellitus wit hout complication (HCC); 680 [facility] Renal insufficiency; [place] BMI 37.0-37.9, adult [place] [phone] Social History Tobacco Use Types Packs/Day Years Used Date Smoking Tobacco: Never Smokeless Tobacco: Never Alcohol Use Standard Drinks/Week Comments No 0 (1 standard drink = 0.6 oz pure alcoho l) occasional Sex Assigned at Date Recorded Not on file documented as of this encounter Last Filed Vital Signs Vital Sign Reading Time Taken Comments Blood Pressure 134/82 08/14/2015 1:46 PM LINE HAUL DRIVER Pulse 68 08/14/2015 1:02 PM LINE HAUL DRIVER Temperature 36.4 ??C (97.6 ??F) 08/14/2015 1:02 PM LINE HAUL DRIVER Respiratory Rate 18 08/14/2015 1:02 PM LINE HAUL DRIVER Oxygen Saturation - - Inhaled Oxygen Concentration - - Weight 117.6 kg (259 lb 3.2 oz) 08/14/2015 1:02 PM LINE HAUL DRIVER Height 177.8 cm (5' 10) 08/14/2015 1:02 PM LINE HAUL DRIVER Body Mass Index 37.19 08/14/2015 1:02 PM LINE HAUL DRIVER documented in this encounter Functional Status Functional Status Response Date of Assessment Patient's Vision Adequate to Safely Complete Daily No 09/26/2014 Activities Patient's Memory Adequate to Safely Complete Daily No 09/26/2014 Activities Cognitive Status Response Date of Assessment Patient's Judgment Adequate to Safely Complete Daily No 09/26/2014 Activities documented as of this encounter Patient Instructions Patient InstructionsKaren Nielson APRN, CNP - 08/14/2015 1:41 PM LINE HAUL DRIVER I will let you know the lab results. HAUL DRIVER documented in this encounter Progress Notes Karen Nielson APRN, CNP - 08/15/2015 8:20 AM CST Recent Results (from the past 24 hour(s)) DOT URINALYSIS DIPSTICK Result Value Ref Range Type CVMS COLOR Yellow Yellow CLARITY Clear Clear PH URINE 5.0 5.0 - 8.0 SPECIFIC GRAVITY 1.020 1.003 - 1.035 LEUK ESTERASE Neg Neg NITRITE Neg Neg PROTEIN Neg Neg-Trace mg/dL GLUCOSE URINE >=1000 (A) Neg mg/dL KETONE Neg Neg mg/dL BLOOD Neg Negative mg/dL A1C(HGB AIC) Result Value Ref Range A1C (HGB AIC) 7.4 (H) 4.0 - 6.0 % Est Average Glucose 166 mg/dL BASIC MET PROF Result Value Ref Range SODIUM 140 134 - 143 mEq/L POTASSIUM 4.6 3.4 - 5.1 mEq/L CHLORIDE 107 99 - 110 mEq/L CO2 25 19 - 29 mEq/L BUN 25 (H) 5 - 24 mg/dL CREATININE 1.60 (H) 0.70 - 1.20 mg/dL GFR CALC 44 (A) CALCIUM 9.5 8.4 - 10.5 mg/dL ANION GAP 8 3 - 15 GLUCOSE 242 (H) 70 - 100 mg/dL MICROALB,RANDOM Result Value Ref Range Microalbumin, Urine 2.7 mg/dL URINE CREATININE 136.4 mg/dL ALB/CREAT RATIO 20 0 - 29 His hemoglobin A1c is 7.4. Patient will be notified that he needs to follow-up with his primary careprovider every 3-6 months. He is currently cleared for one year due to type 2 diabetes and hypertension. HAUL DRIVER Karen Nielson APRN, CNP - 08/14/2015 1:58 PM CST Vision: Right Eye: uncorrected 20/30 Left Eye: uncorrected 20/30 Both Eyes: uncorrected 20/30 Applicant can recognize and distinguish among traffic control signals and devices showing standard red, green and christopher colors? yes Applicant meets visual requirements without wearing corrective lenses. Monocular vision: no Hearing: Hearing aid used during testing? no Did the patient require the use of a hearing aid to meet the standard? no Distance from which individual could first hear forced whisper: Passed hearing Blood Pressure/Pulse Rate: BP 134/82 mmHg Pulse 68 Temp(Src) 36.4 ??C (97.6 ??F) (Tympanic) Resp 18 Ht 5' 10 (1.778 m) Wt 259 lb 3.2 oz (117.572 kg) BMI 37.19 kg/m2 Laboratory and other Test Findings: COLOR Yellow 08/14/2015 CLARITY Clear 08/14/2015 GLUCURINE >=1000 08/14/2015 KETONE Neg 08/14/2015 SGURINE 1.020 08/14/2015 PHURINE 5.0 08/14/2015 PROT Neg 08/14/2015 NITRIT Neg 08/14/2015 LEUKEST Neg 08/14/2015 Physical Examination: General appearance: normal Eyes: normal; Ears: normal Mouth and Throat: normal Heart: normal Lungs and Chest: normal Abdomen and Viscera: normal Vascular System: normal Genito-Urinary System: normal Extremities: normal Spine/Musculoskeletal: normal Neurological: normal Assessment and Plan (Z02.89) Encounter for Department of Transportation (DOT) examination for shelli licence (primary encounter diagnosis) Plan: DOT URINALYSIS DIPSTICK At this time, I am going to wait for lab work. Clearance will be based on the lab work. He will be notified with the results. He is comfortable with this plan. (I10) Essential hypertension, benign Plan: Stable. He is informed that I am going to have him continue his current medication regimen. I am going to obtain lab work. He will be notified with the lab results. Clearance will be based on thelab results. He is comfortable with this plan. (E11.9) Type 2 diabetes mellitus without complication (HCC) Plan: MICROALB,RANDOM, A1C(HGB AIC), BASIC MET PROF Previously stable. Apis time, I am going to obtain additional lab work due to greater than 1000 of glucose noted in the urine. He will be notified with the lab results. He is comfortable with this plan. (N28.9) Renal insufficiency Plan: BASIC MET PROF At this time, stability is unknown. I am going to obtain lab work. He will be notified once obtained lab results. He is comfortable with this plan. (Z68.37) BMI 37.0-37.9, adult Plan: He is encouraged to continue a healthy lifestyle including healthy diet and increase his physical activity as able. We will continue to monitor his weight. Weight Management / BMI follow-up plan:Dietary surveillance and counseling. HAUL DRIVER documented in this encounter Miscellaneous Notes Clinical Note - Suad Zhou LPN - 08/14/2015 1:05 PM CST VISION TESTING: Right Eye: uncorrected 20/30 Left Eye: uncorrected 20/30 Both Eyes: uncorrected 20/30 Type of Correction: without correction Ishihara Color Test: Pass HEARING SCREENING: Right Ear: 40-2000, 40-1000 and 40-500, Results: Average 40 Left Ear: 40-2000, 40-1000 and 40-500, Results: Average 40 HAUL DRIVER Clinical Note - Jayleen Peres LPN - 08/11/2015 2:41 PM CDT This chart was prepped for visit by Jayleen Peres LPN on 08/11/2015. HAUL DRIVER documented in this encounter Plan of Treatment Not on filedocumented as of this encounter Procedures Procedure Name Priority Date/Time Associated Diagnosis Comme nts MICROALBUMIN/CREATI Routine 08/14/2015 2:00 PM Type 2 diabetes Results for this NINE RATIO, URINE LINE HAUL DRIVER mellitus without proced ure are in complication (HCC) the resul ts section. BASIC METABOLIC Routine 08/14/2015 1:50 PM Type 2 diabetes Res ults for this PANEL LINE HAUL DRIVER mellitus without procedure a re in complication (HC C) the results Renal insufficiency section. HEMOGLOBIN A1C Routine 08/14/2015 1:50 PM Type 2 diabetes Resu lts for this LINE HAUL DRIVER mellitus without procedure a re in complication (HCC) the resul ts section. DOT URINALYSIS, 08/14/2015 1:10 PM Encounter for Resul ts for this DIPSTICK ONLY LINE HAUL DRIVER Department of procedure are in Transportation (DOT) the res ults examination for section. shelli licence documented in this encounter Results MICROALB,RANDOM (08/14/2015 2:00 PM LINE HAUL DRIVER) Analysis Performed At Patho logist Time Signature Urine 2.7 mg/dL 08/14/2015 [facility] Microalbumin 8:27 PM LINE HAUL DRIVER LABORATORY URINE CREATININE 136.4 mg/dL 08/14/2015 [facility] 8:27 PM LINE HAUL DRIVER LABORATORY Urine 20 0 - 29 08/14/2015 [facility] Microalbumin/Crea 8:27 PM LINE HAUL DRIVER LABORATORY tinine Ratio Specimen Anatomical Collection Method Collection Time Receive d Time (Source) Location / / Volume Laterality 08/14/2015 2:00 PM 5 7:38 LINE HAUL DRIVER PM LINE HAUL DRIVER Karen Nielson CAPONIZER, WIRE PHOTO OPERATOR NEWS EC URINE ORDERABLES Performing Organization Address City/State/ZIP Code Phon e Number [place] [id number] [place] [address] LABORATORY [facility] LABORATORY (ABNORMAL) BASIC MET PROF (08/14/2015 1:50 PM LINE HAUL DRIVER) P athologist Signature SODIUM 140 134 - 143 08/14/2015 [facility] mEq/L 8:34 PM LINE HAUL DRIVER LABORATORY POTASSIUM 4.6 3.4 - 5.1 08/14/2015 [facility] mEq/L 8:34 PM LINE HAUL DRIVER LABORATORY Chloride 107 99 - 110 08/14/2015 [facility] mEq/L 8:34 PM LINE HAUL DRIVER LABORATORY CO2 25 19 - 29 08/14/2015 [facility] mEq/L 8:34 PM LINE HAUL DRIVER LABORATORY BUN 25 (H) 5 - 24 08/14/2015 [facility] mg/dL 8:34 PM LINE HAUL DRIVER LABORATORY Creatinine 1.60 (H) 0.70 - 08/14/2015 [facility] 1.20 mg/dL 8:34 PM LINE HAUL DRIVER LABORATORY GFR CALC 44 (A) 08/14/2015 [facility] 8:34 PM LINE HAUL DRIVER LABORATORY Comment: GFR Normal: >60 mL/min/1.73 m2 Calcium 9.5 8.4 - 10.5 mg/dL 08/14/2015 8:34 PM LINE HAUL DRIVER [facility] LABORATORY ANION GAP 8 3 - 15 08/14/2015 8:34 PM LINE HAUL DRIVER [facility] LABORATORY GLUCOSE 242 (H) 70 - 100 mg/dL 08/14/2015 8:34 PM LINE HAUL DRIVER [facility] LABORATORY Specimen Anatomical Collection Method Collection Time Receive d Time (Source) Location / / Volume Laterality 08/14/2015 1:50 PM 5 7:39 LINE HAUL DRIVER PM LINE HAUL DRIVER Karen Nielson APRN, WIRE PHOTO OPERATOR NEWS EC CHEMISTRY ORDERABLES Performing Organization Address City/[facility] Phon e Number [place] [address] LABORATORY [facility] LABORATORY (ABNORMAL) A1C(HGB AIC) (08/14/2015 1:50 PM LINE HAUL DRIVER) P athologist Signature A1C (HGB AIC) 7.4 (H) 4.0 - 6.0 08/14/2015 [facility] % 8:33 PM LINE HAUL DRIVER LABORATORY Est Average 166 mg/dL 08/14/2015 [facility] Glucose 8:33 PM LINE HAUL DRIVER LABORATORY Comment: According to ADA guidelines, the estimat ed average glucose (eAG) will be calculated for all HgbA1c results. Specimen Anatomical Collection Method Collection Time Receive d Time (Source) Location / / Volume Laterality 08/14/2015 1:50 PM 5 7:39 LINE HAUL DRIVER PM LINE HAUL DRIVER Karen Nielson APRN, WIRE PHOTO OPERATOR NEWS EC CHEMISTRY ORDERABLES A BN Performing Organization Address City/[facility]/ZIP Code Phon e Number [place] [address] [address] LABORATORY [facility] LABORATORY (ABNORMAL) DOT URINALYSIS DIPSTICK (08/14/2015 1:10 PM LINE HAUL DRIVER) [facility] Method Time Signature Type CVMS 08/14/2015 ST. 1:18 PM [facility] Color Yellow Yellow 08/14/2015 ST. 1:19 PM [facility] [place] Appearance Clear Clear 08/14/2015 ST. 1:19 PM [facility] Urine pH 5.0 5.0 - 8.0 08/14/2015 ST. 1:19 PM [facility] Urine Specific 1.020 1.003 - 08/14/2015 [facility] [place] 1.035 1:19 PM [facility] [place] Urine Neg Neg 08/14/2015 ST[address] Leukocyte 1:[address] [facility] Esterase [facility] LABORATORY Urine Nitrites Neg Neg 08/14/2015 ST. 1:19 PM [facility] [place] [place] Urine Protein Neg Neg-Trace 08/14/2015 ST. mg/dL 1:19 PM [facility] [place] Urine Glucose >=1,000 Neg mg/dL 08/14/2015 ST. (A) 1:19 PM [facility] [place] [place] Urine Ketone Neg Neg mg/dL 08/14/2015 ST. 1:19 PM [facility] [place] [place] Urine Blood Neg Negative 08/14/2015 ST. mg/dL 1:19 PM [facility] [place] Specimen Anatomical Collection Method Collection Time Receive d Time (Source) Location / / Volume Laterality 08/14/2015 1:10 PM 5 1:18 LINE HAUL DRIVER PM LINE HAUL DRIVER Karen Nielson CAPONIZER, WIRE PHOTO OPERATOR NEWS EC URINE ORDERABLES Performing Organization Address City/State/ZIP Code Phon e Number [facility] [address] [place], [place] [address] CLINIC LABORATORY [facility] [address] [place] [address], [facility] documented in this encounter Visit Diagnoses Diagnosis Encounter for Department of Transportati on (DOT) examination for shelli licence - Primary Essential hypertension, benign Type 2 diabetes mellitus without complic ation (HCC) Renal insufficiency Unspecified disorder of kidney and urete r BMI 37.0-37.9, adult documented in this encounter Historical Medications This list may reflect changes made after this encounter. Medication Sig Dispensed Refills Start Date End Date Magnesium 100 MG Cap Take 1 Tab by mouth as 0 needed. added in this encounter Care Teams Millinery Worker Relationship Specialty Start Date End Date Richardson Graham MD PCP - General Family Medicine 07/19/14 09/22/[address] [id number] documented as of this encounter
--- OUTSIDE RECORDS SUMMARY | 2022-09-20 12:26 | XMS_ITS | Encounter Summary ---
:1950 Author Organization [employer] Address [address] [address] Phone Care Team Providers Name Role Phone Richardson Graham MD Primary Care Provider Encounter Details Date Type Department Care Team Description 04/03/2015 Orders Only [facility] Richardson Graham MD Essential hypertension, [place] [address] benign (Primary Dx) 2023 [facility] [place] [id number] Social History Tobacco Use Types Packs/Day Years [...] 09/26/2014 Activities documented as of this encounter Plan of Treatment Not on filedocumented as of this encounter Visit Diagnoses Diagnosis Essential hypertension, benign - Primary documented in this encounter Care Teams Pad Machine Feeder Relationship Specialty Start Date End Date Richardson Graham MD PCP - General Family Medicine 07/19/14 09/22/[address] [place] [id number] documented as of this encounter
--- OUTSIDE RECORDS SUMMARY | 2022-09-20 12:26 | XMS_ITS | Encounter Summary ---
:1950 Author Organization [employer] Address [address] [address] Phone Care Team Providers Name Role Phone Richardson Graham MD Primary Care Provider Encounter Details Date Type Department Care Team Description 09/05/2015 Scanned - Medical [facility] HIS Elsewhere, Pcp Reports [address] [place] [address] Social History Tobacco Use Types Packs/Day Years [...] Name Priority Date/Time Associated Diagnosis Comme nts EYE EXAM & TREATMENT Routine 08/31/2015 documented in this encounter Results EYE EXAM & TREATMENT (08/31/2015) Narrative This result has an attachment that is no t available. Pcp Elsewhere EC PROCEDURES documented in this encounter Visit Diagnoses Not on filedocumented in this encounter Care Teams Breaker Unit Assembler Relationship Specialty Start Date End Date Richardson Graham MD PCP - General Family Medicine 07/19/14 09/22/[address] [place] [address] documented as of this encounter
--- OUTSIDE RECORDS SUMMARY | 2022-09-20 12:26 | XMS_ITS | Encounter Summary ---
:1950 Author Organization [employer] Address [address] [address] Phone Care Team Providers Name Role Phone Richardson Graham MD Primary Care Provider Brenda Vang PA-Raul Unavailable Reason for Visit Reason Onset Date Comments Chronic Disease Management 07/16/2016 Encounter Details Date Type Department Care Team Description 07/16/2016 Telephone [facility] Yasmine Peres [facility] 2023 [facility] [place], [place] [id number] Social History Tobacco Use Types Packs/Day Years [...] this encounter Miscellaneous Notes Telephone Encounter - Yasmine Peres - 07/16/2016 3:25 PM CDT Patient is due for a Lab First; fasting OVS for diabetes and hypertension. I have attempted to contact this patient by phone with the following results: left message to return my call on answering machine. documented in this encounter Plan of Treatment Not on filedocumented as of this encounter Visit Diagnoses Not on filedocumented in this encounter Care Teams Brewing Technician Relationship Specialty Start Date End Date Richardson Graham MD PCP - General Family Medicine 07/19/14 09/22/[address] [id number] Brenda Vang PA-C Family Medicine 10/10/152023 [place] [address] documented as of this encounter
--- OUTSIDE RECORDS SUMMARY | 2022-09-20 12:26 | XMS_ITS | Clinical Summary ---
:1950 Author Organization [employer] Address [address] [address] Phone Care Team Providers Name Role Phone Taj Brenda Raul SANCHEZ Unavailable Elsewhere, Pcp Primary Care Provider Unavailable Allergies Active Allergy Reactions Severity Noted Date Comments Adhesive Tape RASH 09/15/2012 Penicillins Anaphylaxis High 09/20/2011 Medications Medication Sig Dispensed Refills Start Date End Date Status CHILDRENS ASPIRIN 81 mg, ORAL, DAILY, 81.000 0 2009 Active 81 MG chewable Refills: 0, 02/06/09 tablet 18:34:01, Substitution Permitted, current med (Hx) multivitamin 1 tablet, ORAL, 1.000 Tab 0 2009 Active (TAB-A-LISA) TABS DAILY, Refills: 0, 02/06/09 18:34:57, Substitution Permitted, current med (Hx) Zinc 50 MG TABS Take 1 Tab by mouth 30 Tab 0 09/17/2011 Active as needed. Lancet Devices MISC 1 Each by Does not 100 Each 4 05/14/2013 Active apply route four times a day. ARNAV CONTOUR TEST Test four times daily 100 Each 2 4 Active STRIP strip COMPOUNDED RX by INTRACAVERNOSAL 0 09/16/2014 Active route as needed (erectile dysfunction). betamethasone Apply to affected 45 g 1 01/07/2015 Active dipropionate 0.05 % area twice daily as cream needed Misc. Devices Misc by Does not apply 1 Each 0 03/02/2015 Active route. Magnesium 100 MG Take 1 Tab by mouth 0 Active Cap as needed. Magnesium 250 MG Take 250 mg by mouth 0 Active one time a day. amLODIPine Take 1 Tab by mouth 90 Tab 3 11/13/2015 Active (NORVASC) 2.5 MG one time a day. tablet glyBURIDE (DIABETA) TAKE ONE TABLET BY 90 Tab 3 12/24/2015 Active 5 MG tablet MOUTH EVERY MORNING WITH BREAKFAST metoprolol tartrate Take 1 Tab by mouth 180 Tab 2 03/04/2016 Active (LOPRESSOR) 50 MG two times a day. tablet metFORMIN-XR TAKE ONE TABLET EVERY 90 Tab 2 03/04/2016 Active (GLUCOPHAGE-XR) 500 MORNING WITH MG 24 hour BREAKFAST. SWALLOW tabletIndications: WHOLE, DO NOT CRUSH, Type 2 diabetes DIVIDE, OR CHEW. mellitus without complication (HCC) fluticasone Place 2 Sprays into 16 g 0 12/14/2016 Active propionate both nostrils one (FLONASE) 50 time a day. Shake MCG/ACT nasal spray gently before each use; alternate nostrils with each spray. cetirizine (ZYRTEC) Take 1 Tab by mouth 30 Tab 0 12/14/2016 Active 10 MG tablet one time a day. Active Problems Problem Noted Date Dysphagia, unspecified dysphagia 09/20/2015 Overview: Updated per 07/13/17 IMO import BMI 37.0-37.9, adult 08/14/2015 Type 2 diabetes mellitus without complication 02/05/20 15 FH: prostate carcinoma 09/15/2014 ED (erectile dysfunction) 09/13/2013 Healthcare maintenance 10/16/2011 Overview: Colon 2002 due TD 2007 adacel Renal insufficiency 09/22/2011 Overview: IMO Update 07/23 Elevated troponin 09/22/2011 Overview: IMO Update 07/23 Other malaise and fatigue 09/10/2011 Essential hypertension, benign 09/10/2011 Overview: IMO Update 07/23 Resolved Problems Problem Noted Date Resolved Date Renal insufficiency 07/13/2013 07/13/2013 Acute pancreatitis 09/22/2011 02/24/2014 Diabetes mellitus type II 09/22/2011 02/04/2015 Overview: Formatting of this note is dif ferent from the original. DUE:MALB A1C: HGA1C 6.4 08/23/2011 LDL: LDLC 134 08/23/2011 Cr: CREAT 1.02 10/06/2011, GFR >60 10/06 Microalbumin: 21-50 09/03/10 Tobacco use: History Smoking status ? ? Never Smoker Smokeless tobacco ? ? Never Used Aspirin: yes Eye Exam: over 1 year. Depression: denies feeling down, depress ed, hopeless, or having little interest or pleasure in doing things. Foot Exam: normal DP and PT pulses. IMO Update 07/23 DM w/o complication type II 09/10/2011 10/16/2011 Overview: IMO Update 07/23 Diabetes mellitus 09/09/2011 10/16/2011 Immunizations Name Administration Dates Next Due Influenza (Historic Use Only) 09/03/2010 Influenza Quad Preservative Free 09/20/2015, 09/15/2014 Influenza Seasonal Inj A,B High Dose 09/13/2013 Influenza Seasonal Inj A,B Preservative Free 09/10/2011 Tdap (7 years and older) 08/27/2008 Varicella (Varivax) 09/15/2008 Zoster Zostavax (Shingles) 09/17/2012 Surgical History Surgery Date Site/Laterality Comments KNEE ARTHROSCOPY Both knees; ACL repair left; Meniscus on the right LAP,CHOLECYSTECTOMY 09/25/11 with cholang ioram COLONOSCOPY 10/08/2012 10 yr f/u Medical History Medical History Date Comments Diabetes mellitus type II Obstructive sleep apnea Hypertension Obesity Pancreatitis, acute 09/22/2011 Eczema Hands and elbows Family History Medical History Relation Comments Cancer Brother 3 Prostate Cardiovascular Disease Brother 4 Dysrrhythmia Cancer Father Prostate Parkinson's Disease Father Parkinson's Leukemia Mother Leukemia Diabetes Other GI Disease Sister 3 IBS Musculo-skeletal Disease Sister 4 Osteoporosis Relation Status Comments Brother 1 Alive Brother 2 Alive Brother 3 Brother 4 Father (Age 85) Mother (Age 85) Other Sister 1 Alive Sister 2 Alive Sister 3 Sister 4 Social History Tobacco Use Types Packs/Day Years Used Date Smoking Tobacco: Never Smokeless Tobacco: Never Alcohol Use Standard Drinks/Week Comments No 0 (1 standard drink = 0.6 oz pure alcoho l) occasional Sex Assigned at Date Recorded Not on file Obstetrics History Last Filed Vital Signs Vital Sign Reading Time Taken Comments Blood Pressure 128/71 12/14/2016 12:13 PM FLOOR FINISHER HELPER Pulse 65 12/14/2016 12:13 PM FLOOR FINISHER HELPER Temperature 36.8 ??C (98.3 ??F) 12/14/2016 12:13 PM FLOOR FINISHER HELPER Respiratory Rate 18 08/14/2015 1:02 PM FLOOR FINISHER HELPER Oxygen Saturation 94% 12/14/2016 12:13 PM FLOOR FINISHER HELPER Inhaled Oxygen Concentration - - Weight 123.8 kg (273 lb) 12/14/2016 12:13 PM FLOOR FINISHER HELPER Height 177.8 cm (5' 10) 12/14/2016 12:13 PM FLOOR FINISHER HELPER Body Mass Index 39.17 12/14/2016 12:13 PM FLOOR FINISHER HELPER Plan of Treatment Health Maintenance Due Date Last Done Comments CT Colonography 1950 Cologuard 1950 Colonoscopy 1950 Colorectal Cancer Screening 1950 FIT/FOBT 1950 Sigmoidoscopy 1950 Shingrix (Zoster recombinant) 11/12/2012 vaccine (Standing Order) (1 of 2) Pneumococcal Vaccine: 65+ yrs 02/07/2016 (Standing Order) (1 - PCV) DIABETES HGB A1C Q6 MONTHS 07/07/2016 01/05/2016, 5, (Standing Order) 08/14/2015, Additional history exists DIABETIC EYE EXAM 07/31/2016 08/31/2015, 09/01/2014, 08/30/2013 DIABETES MICROALBUMIN Q1 YEAR 08/29/2016 09/29/2015, 2014, (Standing Order) 2015, Additional history exists DIABETES SERUM CREATININE Q1 YEAR 01/04/2017 01/05/2016, , (Standing Order) 09/20/2015, Additional history exists TETANUS (Standing Order) 08/27/2018 08/27/2008 DIABETES LIPID PROFILE Q5 YEARS 03/02/2020 03/02/2015, 07/14, (Standing Order) 06/14/2014, Additional history exists COVID-19 Vaccine (2 - Moderna 12/23/2020 11/25/2020 series) HCC HHS 21 Diabetes without 10/13/2021 Complications Influenza Vaccine Seasonal 06/13/2022 09/20/2015, 4, (Standing Order) (#1) 09/13/2013, Additional his tory exists COLONOSCOPY Q 10 YRS 10/08/2022 10/08/2012 (Previously completed) PERTUSSIS (Standing Order) Completed 08/27/2008 Insurance Payer Benefit Plan Subscriber ID Effective Phone Address Typ e / Group Dates PHARMACY PHARMACY AUTO 2019-Pres [phone] AMBULATORY Other ACCT ACCT ent [id number] [place] [address] MEDICA ZZ MEDICA [id number] 2011-Pre [phone] 0 Indemnity CHOICE CHOICE sent [address] [place] [address] [place] [id number] 2019-Pres [phone] [address] BCBS 1 ent [address] [place], [place] [phone] (Work) [phone] ALINE PABON Pharmacy Self 1950 [address] [place] [address] [employer] [phone] ARRON BERRIOS (Work) [employer] [address] [place] [address] Advance Directives For more information, please contact: [phone] Latest Code Status on File Code Status Date Activated Date Inactivated Comments Full Code 10/02/2011 12:34 PM 10/07/2011 2:56 PM Code Status History Code Status Date Activated Date Inactivated Comments Full Code 09/25/2011 4:02 PM 09/26/2011 2:47 PM Full Code 09/25/2011 11:49 AM 09/25/2011 4:02 PM Full Code 09/25/2011 11:49 AM 09/25/2011 11:49 AM Full Code 09/22/2011 1:19 AM 09/24/2011 2:11 PM Care Teams Rebar Fabricator Relationship Specialty Start Date End Date Elsewhere, Pcp PCP - General 09/23/16 Brenda Vang PA-C Family Medicine 10/10/152023 [place] [address]
--- OUTSIDE RECORDS SUMMARY | 2022-09-20 12:26 | XMS_ITS | Encounter Summary ---
:1950 Author Organization [employer] Address [address] [address] Phone Care Team Providers Name Role Phone Richardson Graham MD Primary Care Provider Reason for Referral Outgoing Referral - Provider Request (Routine) - Exempt Specialty Diagnoses / Procedures Referred By Contact Refer red To Contact Gastroenterology Diagnoses Dysphagia Richardson Graham MD [address] [facility] [place] [address] Referral ID Status Reason Start Date Expiration Date Visits Requ ested Visits Authorized [id number] Exempt 06/27/2015 1 1 Comments Reason for referral: Episodic dysphagia to refer to [facility] GI Referred to (facility name): ENTER this detail in Location/POS field above Comments section if known. Provider requested: ENTER this detail in To field above Comments section if known. --If unable to find facility or provide r, please enter all known details in this comments section. Referral made at the request of [facility] Clinician and patient/family member Encounter Details Date Type Department Care Team Description 06/27/2015 Orders Only [facility] Richardson Graham MD Dysphagia (Primary Dx) CLINIC [facility]IC[facility] [place] [address] [facility] [place] [id number] Social History Tobacco Use Types Packs/Day Years [...] as of this encounter Visit Diagnoses Diagnosis Dysphagia - Primary documented in this encounter Orders REFERRAL Count Last Ordered Date First Ordered Date APPT WITH [facility]Y [facility] 1 2014 documented in this encounter Care Teams Core Maker Relationship Specialty Start Date End Date Richardson Graham MD PCP - General Family Medicine 07/19/14 09/22/16[address] [address] documented as of this encounter
--- OUTSIDE RECORDS SUMMARY | 2022-09-20 12:26 | XMS_ITS | Encounter Summary ---
:1950 Author Organization [employer] Address [address] [address] Phone Care Team Providers Name Role Phone Richardson Graham MD Primary Care Provider Reason for Visit Reason Onset Date Comments Results 08/15/2015 Hemoglobin A1c, BMP Encounter Details Date Type Department Care Team Description 08/15/2015 Telephone [facility] Karen Nielson, Results (Hemoglobin FAMILY MEDICINE ELECTROTYPE MOLDER, MILLER SUPERVISOR A1c, BMP) [address] [facility] [address] [place] [address] [place] [phone] [place] [address] (Wo rk) Social History Tobacco Use Types [...] this encounter Miscellaneous Notes Telephone Encounter - Jayleen Peres LPN - 08/15/2015 9:05 AM HEALTH TECHNICIAN HEARING LMTCB- forms sent to his home. Was not able to tell his , no JUDY TH TECHNICIAN HEARING Telephone Encounter - Karen Nielson APRN, [place] - 08/15/2015 9:04 AM HEALTH TECHNICIAN HEARING DOT forms sent. TH TECHNICIAN HEARING Telephone Encounter - Jayleen Peres LPN - 08/15/2015 8:50 AM HEALTH TECHNICIAN HEARING Pt aware- did you send out the DOT forms to him? TH TECHNICIAN HEARING Telephone Encounter - Karen Nielson APRN, CNP - 08/15/2015 8:21 AM HEALTH TECHNICIAN HEARING Recent Results (from the past 24 hour(s)) [...] mg/dL ALB/CREAT RATIO 20 0 - 29 Please call him and let him know that his hemoglobin A1c is 7.4. His kidney function is stable. He needs to follow-up with his primary care provider. TH TECHNICIAN HEARING documented in this encounter Plan of Treatment Not on filedocumented as of this encounter Visit Diagnoses Not on filedocumented in this encounter Care Teams Data Science And Iot Manager Relationship Specialty Start Date End Date Richardson Graham MD PCP - General Family Medicine 07/19/14 09/22/16[address] [address] documented as of this encounter
--- OUTSIDE RECORDS SUMMARY | 2022-09-20 12:26 | XMS_ITS | Encounter Summary ---
:1950 Author Organization [employer] Address [address] [address] Phone Care Team Providers Name Role Phone John Arroyo MD Primary Care Provider Reason for Visit Reason Comments Refill Request Encounter Details Date Type Department Care Team Description 07/16/2015 [facility]ill [facility] Olivia Arroyo MD Refill Request FAMILY MEDICINE [address] 2023 [facility] [place] [address] [place] [address] [phone] Social History Tobacco Use Types Packs/Day Years [...] TAKE ONE TABLET BY 180 Tab 2 07/18/20 15 02/26/2016 (LOPRESSOR) 50 MG tablet MOUTH TWICE DAILY documented in this encounter Miscellaneous Notes Telephone Encounter - Yenifer Melo RN - 07/18/2015 4:33 AM CDT The refill request is Ok to authorize per the [facility] Medication Refill Protocol. Telephone Encounter - Karina Moran - 07/16/2015 7:32 AM CDT metoprolol tartrate (LOPRESSOR) 50 MG tablet [Pharmacy Med Name: Metoprolol Tartrate Oral Tablet 50 MG] - REFILL: 9 months - PROTOCOL: Cardiovascular: Beta Blockers - Propranolol, Atenolol, Metoprolol - RATIONALE: This refill should last until the patient is due for an office visit check, DBP check and SBP check. - LAST QUALIFYING VISIT WITH OJHN ARROYO F: 03/02/2015 - NEXT SCHEDULED VISIT: None - MEDICATION STARTED: 10/07/2011 - LAST REFILLED ON: 10/06/2014, QTY: 180, Refills: 2, Sig: take one tablet by mouth twice daily (unchanged) - LAST FILL DATE FROM PHARMACY: 04/03/2015 - SBP: 123.0mm Hg on 03/02/2015 - DBP: 77.0mm Hg on 03/02/2015 Powered by [employer], Reference: [id number], 07/16/2015 7:32:29 AM CDT, Pool: ARLENE ([id number]) documented in this encounter Plan of Treatment Not on filedocumented as of this encounter Visit Diagnoses Not on filedocumented in this encounter Discontinued Medications Medication Sig Discontinue Reason Start Date End Date metoprolol tartrate Take one tablet by 10/06/2014 (LOPRESSOR) 50 MG tablet mouth twice daily documented as of this encounter Care Teams Door To Door Salesman Relationship Specialty Start Date End Date John Arroyo MD PCP - General Family Medicine 07/19/14 09/22/16[address] [address] documented as of this encounter
--- OUTSIDE RECORDS SUMMARY | 2022-09-20 12:26 | XMS_ITS | Encounter Summary ---
:1950 Author Organization [employer] Address [address] [address] Phone Care Team Providers Name Role Phone John Arroyo MD Primary Care Provider Brenda Vnag PA-Raul Unavailable Reason for Visit Reason Onset Date Comments Refill Request 11/13/2015 Amlodipine Encounter Details Date Type Department Care Team Description 11/13/2015 Refill [facility] NURSE Grant Arroyo MD Refill Request [facility] [address] (Amlodipine) 400 [place] [address] [place] [address] (Wo rk) Social History Tobacco Use Types [...] Sig Dispensed Refills Start Date End Date amLODIPine (NORVASC) 2.5 MG Take 1 Tab by mouth 90 Tab 3 11/13/2015 tablet one time a day. documented in this encounter Miscellaneous Notes Telephone Encounter - Indiana Katz RN - 11/13/2015 3:19 PM GLASS RIBBON MACHINE OPERATOR ASSISTANT Amlodipine ordered as 2.5 mg instead of 1/2 of a 5 mg tab as requested by pharmacy and as a result of notes below, with med being listed as Historic on 03/02/2015 as a dose of 2.5mg. Per Dr Arroyo's note from office visit of 03/02/2015 - After discussion we have elected to decrease the Norvasc to 2.5 mg (half tablet) and see what his blood pressure does over the next few weeks. If his blood pressure starts to climb he will add the losartan 25 mg on and then plan to check a lab test after about 2 weeks of being on the new medication. Per patient's message to Dr Arroyo on 03/31/2015 - Have cut the Lodipine in 1/2 and my blood pressurehas been running about 138 over 80. Have not started the Losartan as planned. Per Dr Arroyo's message back to patient in response to above - Glad ??BP looking good ??Has the decrease in amlodipine to 1/2 helped the leg swelling? ??I ordered the lab so you just need to set up time for non fasting lab ??Mainly need to recheck kidney function and look for other cause for leg swelling ??Make sure drinking enough water ?? Per letter to patient from Dr Arroyo - Overall labs look good. Kidney test remains elevated but improved S RIBBON MACHINE OPERATOR ASSISTANT Telephone Encounter - Utility, Refill Wizard - 11/13/2015 3:15 PM CST amLODIPine (NORVASC) 5 MG tablet - WARNING: The requested medication was previously set to Historic on 03/02/2015 by JOHN ARROYO - REFILL: 11 months (if warnings resolved) - PROTOCOL: Cardiovascular: Calcium Channel Blockers - RATIONALE: This refill should last until the patient is due for an office visit check, DBP check and SBP check. - LAST QUALIFYING VISIT WITH JOHN ARROYO: 09/20/2015 - NEXT SCHEDULED VISIT: None - MEDICATION STARTED: 10/07/2011 - LAST REFILLED: Not available (Last set to Historic on 03/02/2015 by JOHN ARROYO. Sig: Take 0.5 Tabs by mouth one time a day. (unchanged)) - SBP: 124.0mm Hg on 09/20/2015 - DBP: 76.0mm Hg on 09/20/2015 Powered by [employer] Reference: [id number], 11/13/2015 3:15:05 PM GLASS RIBBON MACHINE OPERATOR ASSISTANT, Pool: ARLENE ([id number]) S RIBBON MACHINE OPERATOR ASSISTANT Telephone Encounter - Chelle Casper - 11/13/2015 3:13 PM CST NORVASC ORAL TAB 5 MG Sig: TAKE 1 TAB PO ONCE DAILY Qty: 90 Last Refill: 05.14.2015 Comments: PLS SEND A NEW RX FOR NORVASC 2.5 MG TABS, SO PT DOESN'T HAVE TO CUT TABS. PT WOULD LIKE 0- SUPPLY, TOO. THANKS. S RIBBON MACHINE OPERATOR ASSISTANT documented in this encounter Plan of Treatment Not on filedocumented as of this encounter Visit Diagnoses Not on filedocumented in this encounter Discontinued Medications Medication Sig Discontinue Reason Start Date End Date amLODIPine (NORVASC) 5 Take 0.5 Tabs by Duplicate Medication 201411/13/2015 MG tablet mouth one time a day. documented as of this encounter Care Teams Customer Experience Leader Relationship Specialty Start Date End Date John Arroyo MD PCP - General Family Medicine 07/19/14 09/22/16[address] [place], [place] [address] Brenda Vang PA-C Family Medicine 10/10/152023 [facility] [place], [place] [address] documented as of this encounter
--- OUTSIDE RECORDS SUMMARY | 2022-09-20 12:26 | XMS_ITS | Encounter Summary ---
:1950 Author Organization [employer] Address [address] [address] Phone Care Team Providers Name Role Phone John Arroyo MD Primary Care Provider Brenda Vang PA-Raul Unavailable Reason for Visit Reason Comments Refill Request Glyburide Encounter Details Date Type Department Care Team Description 12/22/2015 Refill [facility] Olivia Arroyo MD Refill Request FAMILY MEDICINE [address] (Glyburide) 2023 [place] [address] [place], [place] [address] (Wo rk) Social History Tobacco Use Types [...] Sig Dispensed Refills Start Date End Date glyBURIDE (DIABETA) 5 MG TAKE ONE TABLET BY 90 Tab 3 tablet MOUTH EVERY MORNING WITH BREAKFAST documented in this encounter Miscellaneous Notes Telephone Encounter - Mary English RN - 12/24/2015 6:22 PM CDT Medication request authorized by the provider as documented in order entry administrator. This encounter closed. Telephone Encounter - Jeanette Schneider RN - 12/23/2015 3:[address] Arroyo, Patient is requesting Glyburide 5mg to be refilled. I can see your note in e- mail, regarding restarting this on 09-21-15, yet it isn't in his current medication list. Ok to order? Thanks! Jeanette ZAMAN CUTTER Telephone Encounter - Utility, Refill Wizard - 12/22/2015 5:58 PM CST glyBURIDE (DIABETA) 5 MG tablet [Pharmacy Med Name: GlyBURIDE Oral Tablet 5 MG] - WARNING #1: This is a re-requested duplicate that should be manually reviewed. - WARNING #2: The requested medication was discontinued on 09/20/2015 by JOHN ARROYO. - WARNING #3: The patient is requesting a renewal from a different pharmacy. - REFILL: 3 months (if violations and [...] - HBA1C: 9.8% on 09/20/2015 Powered by [employer], Reference: [id number], 12/22/2015 5:58:26 PM Steven ANDERSON: ARLENE ([id number]) documented in this encounter Plan of Treatment Not on filedocumented as of this encounter Visit Diagnoses Not on filedocumented in this encounter Care Teams Coffee Machine Technician Relationship Specialty Start Date End Date John Arroyo MD PCP - General Family Medicine 07/19/14 09/22/16[address] [address] Brenda Vang PA-C Family Medicine 10/10/152023 [place], [place] [address] documented as of this encounter
--- OUTSIDE RECORDS SUMMARY | 2022-09-20 12:26 | XMS_ITS | Encounter Summary ---
:1950 Author Organization [employer] Address [address] [address] Phone Care Team Providers Name Role Phone John Arroyo MD Primary Care Provider Brenda Vang PA-C Unavailable Reason for Visit Reason Comments Refill Request Encounter Details Date Type Department Care Team Description 12/17/2015 Refill [facility] Olivia Arroyo MD Refill Request FAMILY MEDICINE [address] 2023 [facility] [place] [address] [place] [address] [phone] Social History Tobacco Use Types Packs/Day Years [...] this encounter Miscellaneous Notes Telephone Encounter - Utility, Refill Wizard - 12/17/2015 1:25 PM CST glyBURIDE (DIABETA) 5 MG tablet [Pharmacy Med Name: GlyBURIDE Oral Tablet 5 MG] - WARNING #1: A duplicate request was processed on 12/10/2015. - WARNING #2: The requested medication was discontinued on 09/20/2015 by JOHN ARROYO. - REFILL: 3 months (if violations and warnings resolved) - VIOLATION: HBA1C is abnormal (9.8% is greater than 7.9%) - PROTOCOL: Endocrinology: Diabetes - Sulfonylureas - RATIONALE: This refill should last until the patient is due for a(n) HBA1C check. - LAST QUALIFYING VISIT WITH JOHN ARROYO: 09/20/2015 - NEXT SCHEDULED VISIT: None - MEDICATION STARTED: 09/15/2012 - LAST REFILLED ON: 04/03/2015, QTY: 90, Refills: 1, Sig: take one tablet by mouth every morning with breakfast (unchanged) - LAST FILL DATE FROM PHARMACY: 09/22/2015 - HBA1C: 9.8% on 09/20/2015 Powered by [employer], Reference: [id number], 12/17/2015 1:25:50 PM EARLY CHILDHOOD TEACHER ASSISTANT, Pool: ARLENE ([id number]) Y CHILDHOOD TEACHER ASSISTANT documented in this encounter Plan of Treatment Not on filedocumented as of this encounter Visit Diagnoses Not on filedocumented in this encounter Care Teams Hotel Engineer Relationship Specialty Start Date End Date John Arroyo MD PCP - General Family Medicine 07/19/14 09/22/[address] [address] Brenda Vang PA-C Family Medicine 10/10/152023 [facility] [place] [address] documented as of this encounter
--- OUTSIDE RECORDS SUMMARY | 2022-09-20 12:26 | XMS_ITS | Encounter Summary ---
:1950 Author Organization [facility] [employer] [facility] Address [address] [address] Phone Care Team Providers Name Role Phone Richardson Graham MD Primary Care Provider Bernda Vang PA-C Unavailable Reason for Visit Reason Onset Date Comments Refill Request 03/06/2016 Encounter Details Date Type Department Care Team Description 03/06/2016 Refill [facility] NURSE CARE Richardson Graham MD Refill Request LINE [address] 400 [facility] [place] [address] [place] [address] [phone] Social History Tobacco Use Types Packs/Day Years [...] this encounter Miscellaneous Notes Telephone Encounter - Nadege Stallworth - 03/06/2016 10:35 AM CDT DUPLICATE METFORMIN documented in this encounter Plan of Treatment Not on filedocumented as of this encounter Visit Diagnoses Not on filedocumented in this encounter Care Teams Punching Machine Operator Relationship Specialty Start Date End Date Richardson Graham MD PCP - General Family Medicine 07/19/14 09/22/[address] [id number] Brenda Vang PA-C Family Medicine 10/10/152023 [place] [address] documented as of this encounter
--- OUTSIDE RECORDS SUMMARY | 2022-09-20 12:26 | XMS_ITS | Encounter Summary ---
:1950 Author Organization [facility] [email or web address] Address [address] [address] Phone Care Team Providers Name Role Phone Richardson Graham MD Primary Care Provider Brenda Vang PA-C Unavailable Reason for Visit Reason Onset Date Comments Refill Request 03/05/2016 Encounter Details Date Type Department Care Team Description 03/05/[address] [facility] NURSE CARE Richardson Graham MD Refill Request LINE [address] 400 [facility] [place], [place] [id number] [place] [address] [phone] Social History Tobacco Use Types Packs/Day Years [...] Notes Telephone Encounter - Nadege Stallworth - 03/05/2016 9:48 AM CDT DUPLICATE METFORMIN documented in this encounter Plan of Treatment Not on filedocumented as of this encounter Visit Diagnoses Not on filedocumented in this encounter Care Teams Science Consultant Relationship Specialty Start Date End Date Richardson Graham MD PCP - General Family Medicine 07/19/14 09/22/[address] [address] Brenda Vang PA-C Family Medicine 10/10/152023 [place] [address] documented as of this encounter
--- OUTSIDE RECORDS SUMMARY | 2022-09-20 12:26 | XMS_ITS | Encounter Summary ---
:1950 Author Organization [employer] Address [address] [address] Phone Care Team Providers Name Role Phone Richardson Graham MD Primary Care Provider Reason for Visit Reason Comments Referral [facility] Encounter Details Date Type Department Care Team Description 06/28/2015 Notes [facility] Geovanna Lutz Referral ([facility] 2023 [facility] [place], [place] [address] Social History Tobacco Use Types Packs/Day Years [...] this encounter Progress Notes Geovanna Lutz - 06/28/2015 10:12 AM CDT Referral received and faxed to [facility]. Patient will receive a call to schedule appointment from that facility once patient's chart/ information have been reviewed. For questions, please have patient call [phone] to speak with scheduling office. Thank you documented in this encounter Plan of Treatment Not on filedocumented as of this encounter Visit Diagnoses Not on filedocumented in this encounter Care Teams Hand Inserter Operator Relationship Specialty Start Date End Date Richardson Graham MD PCP - General Family Medicine 07/19/14 09/22/[address] [address] documented as of this encounter
--- OUTSIDE RECORDS SUMMARY | 2022-09-20 12:26 | XMS_ITS | Encounter Summary ---
:1950 Author Organization [employer] Address [address] [address] Phone Care Team Providers Name Role Phone Richardson Graham MD Primary Care Provider Brenda Vang PA-C Unavailable Encounter Details Date Type Department Care Team Description 12/29/2015 [facility] Richardson Graham MD Type 2 diabetes [facility] [place] [address] mellitus without 20[address] [facility] [address] [facility] [place] [phone] Social History Tobacco Use Types Packs/Day Years [...] Not on filedocumented as of this encounter Results (ABNORMAL) BASIC MET PROF (01/05/2016 8:10 AM CDT) P athologist Signature SODIUM 141 134 - 143 01/05/2016 [facility]ISIONS mEq/L 1:[address] [facility] POTASSIUM 4.8 3.4 - 5.1 01/05/2016 [facility] mEq/L 1:[address] [facility] Chloride 108 99 - 110 01/05/2016 [facility] mEq/L 1:[address] [facility] CO2 25 19 - 29 01/05/2016 [facility] mEq/L 1:[address] [facility] BUN 23 5 - 24 01/05/2016 [facility] mg/dL 1:[address] [facility] Creatinine 1.54 (H) 0.70 - 01/05/2016 [facility] 1.20 mg/dL 1:[address] [facility] GFR CALC 46 (A) 01/05/2016 [facility] 1:[address] [facility] Comment: GFR Normal: >60 mL/min/1.73 m2 Calcium 9.4 8.4 - 10.5 mg/dL 01/05/2016 1:55 PM CDT [facility] ANION GAP 8 3 - 15 01/05/2016 1:55 PM CDT [facility] GLUCOSE 139 (H) 70 - 100 mg/dL 01/05/2016 1:55 PM CDT [facility] Comment: Current ADA criteria are ?Normal: 70-99 mg/dL ?Impaired Fasting Glucose: 100-125 mg/dL ?Diabetes Mellitus: at or above 126 mg/dL The diagnosis of diabetes must be confi rmed on a subsequent day by measuring FPG, 2-hr PG or random plasma glucose (if symptoms are present). Specimen Anatomical Collection Method Collection Time Receive d Time (Source) Location / / Volume Laterality 01/05/2016 8:10 AM 6 8:10 CDT AM CDT Richardson Graham MD EC CHEMISTRY ORDERABLES Performing Organization Address City/State/ZIP Code Phon e Number [facility] [address] [place] [address] LABORATORY (ABNORMAL) A1C(HGB AIC) (01/05/2016 8:10 AM CDT) P athologist Signature A1C (HGB AIC) 6.3 (H) 4.0 - 6.0 01/05/2016 ST. % 8:46 AM CDT [facility] Est Average 134 mg/dL 01/05/2016 [facility] Glucose 8:46 AM CDT [facility] Comment: According to ADA guidelines, the estimat ed average glucose (eAG) will be calculated for all HgbA1c results. Specimen Anatomical Collection Method Collection Time Receive d Time (Source) Location / / Volume Laterality 01/05/2016 8:10 AM 6 8:10 CDT AM CDT Richardson Graham MD EC CHEMISTRY ORDERABLES ABN Performing Organization Address City/State/ZIP Code Phon e Number [facility] [address] [place] [address] LABORATORY documented in this encounter Visit Diagnoses Diagnosis Type 2 diabetes mellitus without complic ation (HCC) - Primary documented in this encounter Care Teams Music Box Mechanic Relationship Specialty Start Date End Date Richardson Graham MD PCP - General Family Medicine 07/19/14 09/22/[address] [address] Brenda Vang PA-C Family Medicine 10/10/152023 [place], [place] [address] documented as of this encounter
--- OUTSIDE RECORDS SUMMARY | 2022-09-20 12:27 | XMS_ITS | Encounter Summary ---
:1950 Author Organization [employer] Address [address] [address] Phone Care Team Providers Name Role Phone Richardson Graham MD Primary Care Provider Reason for Visit Reason Comments Refill Request Encounter Details Date Type Department Care Team Description 10/06/2014 [facility] Brenda Vang, LAURA Refill Request FAMILY MEDICINE 2023 [facility] 2023 [facility] [place] [address] [place] [address] [phone] Social History Tobacco Use Types Packs/Day Years [...] glyBURIDE (DIABETA) 5 MG TAKE ONE TABLET EVERY 90 Tab 1 10/06/2014 04/03/2015 tablet MORNING WITH BREAKFAST documented in this encounter Miscellaneous Notes Telephone Encounter - Isabel Parker RN - 10/07/2014 1:55 PM CST Patient's medication list, allergies, last labs, and last office visit pertaining to this specific medication have been reviewed during this refill encounter. Medication refilled per protocol. GER [employer] OPERATIONS documented in this encounter Plan of Treatment Not on filedocumented as of this encounter Visit Diagnoses Not on filedocumented in this encounter Discontinued Medications Medication Sig Discontinue Reason Start Date End Date glyBURIDE (DIABETA) 5 MG Take 1 Tab by mouth 4 10/06/2014 tabletIndications: every morning with Diabetes mellitus, type breakfast. II (HCC) documented as of this encounter Care Teams Treer Relationship Specialty Start Date End Date Richardson Graham MD PCP - General Family Medicine 07/19/14 09/22/[address] [address] documented as of this encounter
--- OUTSIDE RECORDS SUMMARY | 2022-09-20 12:27 | XMS_ITS | Encounter Summary ---
:1950 Author Organization [employer] Address [address] [address] Phone Care Team Providers Name Role Phone Richardson Graham MD Primary Care Provider Reason for Visit Reason Comments Erectile Dysfunction trimix Encounter Details Date Type Department Care Team Description 05/10/2014 Office Visit [facility] UROLOGY Felice Tovar, ED (erectile [address] MD dysfunction) [place] [address] 2023 [facility] SIXTH Dx) [phone] [place] [address] Social History Tobacco Use Types Packs/Day Years Used Date Smoking Tobacco: Never Smokeless Tobacco: Never Alcohol Use Standard Drinks/Week Comments No 0 (1 standard drink = 0.6 oz pure alcoho l) occasional Sex Assigned at Date Recorded Not on file documented as of this encounter Last Filed Vital Signs Vital Sign Reading Time Taken Comments Blood Pressure 141/75 05/10/2014 2:27 PM CDT Pulse 58 05/10/2014 2:27 PM CDT Temperature - - Respiratory Rate - - Oxygen Saturation - - Inhaled Oxygen Concentration - - Weight - - Height - - Body Mass Index - - documented in this encounter Progress Notes Felice Tovar MD - 05/12/2014 11:02 AM CDT [facility] Patient Name: ALINE PABON Date of Service: 05/10/2014 : 1950 Age: 64Y Sex: M Site MRN: Patient Loc/Room #: BRDUR/ Provider: Felice Tovar MD, Urology OFFICE NOTE SITE: [facility] Urology Clinic SUBJECTIVE: Arsh is here for followup of erectile dysfunction. He is here for teaching of TriMix. Unfortunately, however, he did not have the TriMix solution sent out to him from [facility]. I discussed with Aline that we do not have that as a sample here and we called [facility] to send out the medication for Aline. Aline should follow up in 2 weeks and we will reschedule the appointment for teaching at that point; therefore, no charge for today's visit. Felice Tovar MD [facility] Urology cc: /BJQ Job ID: [id number] /[id number] Document ID: [id number] Felice Tovar MD - 05/10/2014 5:14 PM CDT This note has been dictated. Brenda Quigley - 05/10/2014 3:15 PM CDT I contacted [facility] and they have the order there. They had called and left a message for the patient to call back with billing information. I spoke with the patient and informed him that he needs tocontact [facility] and gave him the 800 number. Patient was going to call [facility] and get them all the billing information they need to ship him his medication. documented in this encounter Plan of Treatment Not on filedocumented as of this encounter Visit Diagnoses Diagnosis ED (erectile dysfunction) - Primary Impotence of organic origin documented in this encounter Discontinued Medications Medication Sig Discontinue Reason Start Date End Date predniSONE (DELTASONE) 1 PILL TWICE A Course of treatment 01 1705/10/2014 20 MG DAY FOR 4 DAYS completed tabletIndications: Bug bite documented as of this encounter Care Teams Turkey Roll Maker Relationship Specialty Start Date End Date Richardson Graham MD PCP - General Family Medicine 04/06/12 07/18/14[address] [address] documented as of this encounter
--- OUTSIDE RECORDS SUMMARY | 2022-09-20 12:27 | XMS_ITS | Encounter Summary ---
:1950 Author Organization [employer] Address [address] [address] Phone Care Team Providers Name Role Phone John Arroyo MD Primary Care Provider Reason for Visit Reason Onset Date Comments Refill Request 02/07/2015 Metformin Encounter Details Date Type Department Care Team Description 02/07/2015 Refill [facility] Brenda Vang , Refill Request FAMILY MEDICINE [facility] (Metformin) 2023 [facility] eet 2023 [place] [address] [place] [phone] [place] [address] (Wo rk) Social History Tobacco Use Types [...] Date End Date metFORMIN-XR TAKE ONE TABLET 90 Tab 0 02/07/201503/02/ 015 (GLUCOPHAGE-XR) 500 MG 24 EVERY MORNING WITH hour tabletIndications: BREAKFAST. SWALLOW Type 2 diabetes mellitus WHOLE, DO NOT CRUSH, without complication DIVIDE, OR CHEW. ([facility]) documented in this encounter Miscellaneous Notes Telephone Encounter - Mary Ochoa RN - 02/07/2015 1:37 PM CDT The refill request is Ok to authorize per the [facility] Medication Refill Protocol. Telephone Encounter - Utility, Refill Wizard - 02/07/2015 6:55 AM CDT metFORMIN-XR (GLUCOPHAGE-XR) 500 MG 24 hour tablet [Pharmacy Med Name: MetFORMIN HCl ER Oral Tablet Extended Release 24 Hour 500 MG] - REFILL: 3 months (if violations resolved; manual update required, due to unreadable sig) - VIOLATION: Cr is abnormal (1.59mg/dL lies outside 0.7mg/dL - 1.2mg/dL) - PROTOCOL: Endocrinology: Diabetes - Biguanides - RATIONALE: This is a courtesy refill. Patient is overdue for a(n) HBA1C check. This will be the last refill authorized by the protocol. - LAST QUALIFYING VISIT WITH JOHN ARROYO F: 09/15/2014 - NEXT SCHEDULED VISIT IN FAMILY PRACTICE: 03/02/2015 - MEDICATION STARTED: 11/17/2014 - LAST REFILLED ON: 11/17/2014, QTY: 90, Refills: 0, Sig: take 1 tab by mouth every morning with breakfast. swallow tablet whole; do not crush, divide or chew. (changed) - LAST FILL DATE FROM PHARMACY: 11/17/2014 - Cr: 1.59mg/dL on 2015 - HBA1C: 6.1% on 08/05/2014 ADDITIONAL SCHEDULING ACTIONS TAKEN: - HBA1C for metFORMIN SR osmotic (GLUCOPHAGE-XR) 500 MG 24 hour tablet (Sent to [facility]) - HBA1C for glyBURIDE (DIABETA) 5 MG tablet (Sent to [facility]) Powered by [employer], Reference: [id number], 02/07/2015 6:55:17 AM CDT, Pool: ARLENE ([id number]) documented in this encounter Plan of Treatment Not on filedocumented as of this encounter Visit Diagnoses Diagnosis Type 2 diabetes mellitus without complic ation (HCC) - Primary documented in this encounter Discontinued Medications Medication Sig Discontinue Reason Start Date End Date metFORMIN SR osmotic Take 1 Tab by mouth 11/17/2014 02/07/2015 (GLUCOPHAGE-XR) 500 MG every morning with 24 hour tablet breakfast. Swallow tablet whole; do not crush, divide or chew. documented as of this encounter Care Teams Corporate Concierge Relationship Specialty Start Date End Date John Arroyo MD PCP - General Family Medicine 07/19/14 09/22/16[address] [address] documented as of this encounter
--- OUTSIDE RECORDS SUMMARY | 2022-09-20 12:27 | XMS_ITS | Encounter Summary ---
:1950 Author Organization [employer] Address [address] [address] Phone Care Team Providers Name Role Phone Richardson Graham MD Primary Care Provider Reason for Visit Reason Comments Diabetes Edema in bilateral fett Blood Pressure Encounter Details Date Type Department Care Team Description 03/02/2015 Office Visit [facility] Richardson Graham, Type 2 di abetes mellitus without complication (HCC) (Primary Dx); [facility] YOU[facility] MD Renal insufficiency; 2023 [place] 2023 Essential hypertension, [facility] [place] [address] [place] [phone] [id number] Social History Tobacco Use Types Packs/Day Years Used Date Smoking Tobacco: Never Smokeless Tobacco: Never Alcohol Use Standard Drinks/Week Comments No 0 (1 standard drink = 0.6 oz pure alcoho l) occasional Sex Assigned at Date Recorded Not on file documented as of this encounter Last Filed Vital Signs Vital Sign Reading Time Taken Comments Blood Pressure 123/77 03/02/2015 2:32 PM CDT Pulse 58 03/02/2015 2:32 PM CDT Temperature 36.1 ??C (96.9 ??F) 03/02/2015 2:32 PM CDT Respiratory Rate - - Oxygen Saturation - - Inhaled Oxygen Concentration - - Weight 124.7 kg (275 lb) 03/02/2015 2:32 PM CDT Height 177.8 cm (5' 10) 03/02/2015 2:32 PM CDT Body Mass Index 39.46 03/02/2015 2:32 PM CDT documented in this encounter Functional Status Functional Status Response Date of Assessment Patient's Vision Adequate to Safely Complete Daily No 09/26/2014 Activities Patient's Memory Adequate to Safely Complete Daily No 09/26/2014 Activities Cognitive Status Response Date of Assessment Patient's Judgment Adequate to Safely Complete Daily No 09/26/2014 Activities documented as of this encounter Ordered Prescriptions Prescription Sig Dispensed Refills Start Date End Date Misc. Devices Misc by Does not apply 1 Each 0 03/02/2015 route. metFORMIN-XR TAKE ONE TABLET 90 Tab 3 03/02/2015 016 (GLUCOPHAGE-XR) 500 MG 24 EVERY MORNING WITH hour tabletIndications: BREAKFAST. SWALLOW Type 2 diabetes mellitus WHOLE, DO NOT CRUSH, without complication DIVIDE, OR CHEW. ([facility]) documented in this encounter Progress Notes Richardson Graham MD - 03/05/2015 12:49 AM CDT [facility] Patient Name: ALINE PABON Date of Service: 03/02/2015 : 1950 Age: 65Y Sex: M Site MRN: Patient Loc/Room #: [facility] FP/ Provider: Richardson Graham MD, Family Practice OFFICE NOTE SITE: [facility] CHIEF COMPLAINT: 1. Diabetes. 2. Hypertension. 3. Chronic kidney disease, stage 3. SUBJECTIVE: 1. Arsh has had chronic kidney disease. His creatinine is running around 1.6 consistently. He just saw the wool hat sanding machine operator on 02/14. We reviewed the notes. She had noted that he had just significant peripheral edema. He also noticed over tax season he did get quite a bit of leg swelling. Dr. Kent suggested adding losartan 25 mg and decreasing Norvasc to 2.5 mg. We did a lab today and his creatinine is up a little at 1.75 and his potassium is 5.2, but he had been fasting overnight and not drinkingand I think this is likely the cause of this. After discussion we have elected to decrease the Norvasc to 2.5 mg (half tablet) and see what his blood pressure does over the next few weeks. If his blood pressure starts to climb he will add the losartan 25 mg on and then plan to check a lab test after about 2 weeks of being on the new medication. I think with the weight loss he has had and how he is cautious with his diet that it may very well be that he will not need to add the losartan. 2. Leg swelling - the most likely cause of leg swelling is from the Norvasc. Other lab tests that wehave looked at does show the creatinine a little elevated. His hemoglobin is stable at 14.3. We havenot done a TSH or liver function tests, other than he had the normal AST. I think it is very reasonable to try decreasing the Norvasc initially as treatment for the leg swelling. 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 In the meantime, he is going to be careful with salt and use some leg elevation and support hose, and if his leg swelling does not go away then I do think will include, with his followup lab, a liver panel to make sure thatis normal as well, and a TSH. 3. Diabetes - at goal for all parameters. He is a nonsmoker, on an aspirin, blood pressure is at goal, A1c is at goal, and his LDL cholesterol is at goal. He has no sores on his feet, he is having yearly eye exams, and his creatinine remains moderately elevated but stable. 4. Hypertension - good control with current medications. We will try and see how he does just with 1/2 tablet of the amlodipine, watch the swelling. [facility] including medications updated in the EHR. REVIEW OF SYSTEMS: Otherwise, a 10-point review is all negative. EXAM: He is alert and comfortable. Blood pressure is 123/77, pulse 58. Weight is down almost 9 pounds in the last week and a half, though there may be some change in different scale. Lungs are clear with good air movement, no wheezes or rhonchi. Heart is 70 and regular without murmurs. Feet show no lesions. He does have 1 to 2+ ankle edema. ASSESSMENT: 1. Diabetes, at goal. 2. Hypertension, at goal. 3. Hyperlipidemia, at goal. 4. Leg swelling thought secondary to Norvasc. 5. Renal insufficiency and elevated potassium, just a little worse, but I think it is from fasting. PLAN: We will plan at minimum to check his lab within a month and it will depend on the timing of when he starts his losartan. Richardson Graham MD [facility] cc: /RFM Job ID: [id number] /[id number] Document ID: [id number] documented in this encounter Miscellaneous Notes Clinical Note - Lucille Alarcon LPN - 02/16/2015 8:45 AM CDT This chart was prepped for visit by Lucille Alarcon LPN on 02/16/2015. documented in this encounter Plan of Treatment Not on filedocumented as of this encounter Visit Diagnoses Diagnosis Type 2 diabetes mellitus without complic ation (HCC) - Primary Renal insufficiency Unspecified disorder of kidney and urete r Essential hypertension, benign documented in this encounter Discontinued Medications Medication Sig Discontinue Reason Start Date End Date benzonatate (TESSALON) Take 2 Caps by Course of treatment 03/02/2015 100 MG capsule mouth three times completed a day. Swallow whole. Do not break or chew. guaiFENesin - codeine Take 10 mL by Course of treatment 02/23/2015 03/02/2015 (ROBITUSSIN AC) 100-10 mouth every four completed MG/5ML syrup hours as needed (cough). metFORMIN-XR TAKE ONE TABLET 02/07/2015 03/02/2015 (GLUCOPHAGE-XR) 500 MG EVERY MORNING WITH 24 hour BREAKFAST. SWALLOW tabletIndications: Type WHOLE, DO NOT 2 diabetes mellitus CRUSH, DIVIDE, OR without complication CHEW. (HCC) amLODIPine (NORVASC) 5 Take one tablet by 10/06/2014 03/02/2015 MG tablet mouth one time daily documented as of this encounter Historical Medications This list may reflect changes made after this encounter. Medication Sig Dispensed Refills Start Date End Date losartan (COZAAR) 25 MG Take 1 Tab by mouth 30 Tab 0 06/12/2015 tablet one time a day. amLODIPine (NORVASC) 5 MG Take 0.5 Tabs by 90 Tab 2 02/1111/13/2015 tablet mouth one time a day. added in this encounter Orders Lab Orders Without Results Count Last Ordered Date Fir st Ordered Date BASIC MET PROF 1 03/02/2015 documented in this encounter Care Teams Fender Repairer Relationship Specialty Start Date End Date Richardson Graham MD PCP - General Family Medicine 07/19/14 09/22/16[address] [address] documented as of this encounter
--- OUTSIDE RECORDS SUMMARY | 2022-09-20 12:27 | XMS_ITS | Encounter Summary ---
:1950 Author Organization [employer] Address [address] [address] Phone Care Team Providers Name Role Phone Richardson Graham MD Primary Care Provider Encounter Details Date Type Department Care Team Description 03/07/2015 Scanned - Medical Reports EXTERNAL RESULTS Elsewhere, Pcp Social History Tobacco Use Types Packs/Day Years [...] on filedocumented in this encounter Care Teams Correctional Officer Lieutenant Relationship Specialty Start Date End Date Richardson Graham MD PCP - General Family Medicine 07/19/14 09/22/16[address] [place] [id number] documented as of this encounter
--- OUTSIDE RECORDS SUMMARY | 2022-09-20 12:27 | XMS_ITS | Encounter Summary ---
:1950 Author Organization [employer] Address [address] [address] Phone Care Team Providers Name Role Phone Richardson Graham MD Primary Care Provider Reason for Visit Reason Onset Date Comments Medication Question 09/15/2014 Encounter Details Date Type Department Care Team Description 09/15/2014 Telephone [facility] Becca Quigley, Medication Question; [address] [place] [id number] Social History Tobacco Use Types Packs/Day Years Used Date Smoking Tobacco: Never Smokeless Tobacco: Never Alcohol Use Standard Drinks/Week Comments No 0 (1 standard drink = 0.6 oz pure alcoho l) occasional Sex Assigned at Date Recorded Not on file documented as of this encounter Miscellaneous Notes Telephone Encounter - Brenda Quigley - 09/15/2014 12:38 PM CST Patient was informed he may go up to .5. Patient was receptive to information. UITRY NEGATIVE INSPECTOR Telephone Encounter - Felice Tovar MD - 09/15/2014 11:16 AM CST He may go up to .5 UITRY NEGATIVE INSPECTOR Telephone Encounter - Brenda Quigley - 09/15/2014 10:35 AM CST ----- Message from Radha Corona sent at 09/15/2014 9:58 AM CIRCUITRY NEGATIVE INSPECTOR ----- Contact: self qualey Date: 09/15/2014 Time: 9:58 AM May we leave a message: yes Patient's Date of : 1950 Person Calling: self Phone Number: Work phone [phone] (work) Reason for call: ptnt has slowly inc inj of ED meds to 4 and he has not gotten desired results can he go higher than 4 Pharmacy: Allergies: -- Penicillins -- Anaphylaxis -- Band Aid [Adhesive Tape] -- RASH Thank you, Radha Corona [facility] [phone] UITRY NEGATIVE INSPECTOR Telephone Encounter - Brenda Quigley - 09/15/2014 10:30 AM CST Patient has slowly increased his dose of injectable ED meds to 4 without the desired effect. The patient would like to know if he can go higher than 4. Patient was informed Dr. Tovar is not in clinic today but we will send the phone message onto him and get back to him with recommendations, once Dr. Tovar reviews his medication question. UITRY NEGATIVE INSPECTOR Telephone Encounter - Brenda Quigley - 09/15/2014 10:29 AM CST ----- Message from Radha Corona sent at 09/15/2014 9:58 AM CIRCUITRY NEGATIVE INSPECTOR ----- Contact: self qualey Date: 09/15/2014 Time: 9:58 AM May we leave a message: yes Patient's Date of : 1950 Person Calling: self Phone Number: Work phone [phone] (work) Reason for call: ptnt has slowly inc inj of ED meds to 4 and he has not gotten desired results can he go higher than 4 Pharmacy: Allergies: -- Penicillins -- Anaphylaxis -- Band Aid [Adhesive Tape] -- RASH Thank you, Radha Corona [facility] [phone] UITRY NEGATIVE INSPECTOR documented in this encounter Plan of Treatment Not on filedocumented as of this encounter Visit Diagnoses Not on filedocumented in this encounter Care Teams Stevedore Hold Relationship Specialty Start Date End Date Richardson Graham MD PCP - General Family Medicine 07/19/14 09/22/16[address] [address] documented as of this encounter
--- OUTSIDE RECORDS SUMMARY | 2022-09-20 12:27 | XMS_ITS | Encounter Summary ---
:1950 Author Organization [employer] Address [address] [address] Phone Care Team Providers Name Role Phone Richardson Graham MD Primary Care Provider Reason for Visit Reason Comments Refill Request Encounter Details Date Type Department Care Team Description 07/18/2014 Refill [facility] Olivia Graham MD Refill Request FAMILY MEDICINE [address] 2023 [facility] [place] [address] [place] [address] [phone] Social History Tobacco Use Types Packs/Day Years Used Date Smoking Tobacco: Never Smokeless Tobacco: Never Alcohol Use Standard Drinks/Week Comments No 0 (1 standard drink = 0.6 oz pure alcoho l) occasional Sex Assigned at Date Recorded Not on file documented as of this encounter Ordered Prescriptions Prescription Sig Dispensed Refills Start Date End Date ARNAV CONTOUR TEST STRIP Test four times 100 Each 2 03/2014 strip daily documented in this encounter Miscellaneous Notes Telephone Encounter - Isabel Parker RN - 07/18/2014 10:15 AM CDT Patient's medication list, allergies, last labs, and last office visit pertaining to this specific medication have been reviewed during this refill encounter. Medication refilled per protocol. documented in this encounter Plan of Treatment Not on filedocumented as of this encounter Visit Diagnoses Not on filedocumented in this encounter Discontinued Medications Medication Sig Discontinue Reason Start Date End Date glucose blood test 1 Strip four times 05/14/2013 07/18/2014 strip (BLOOD GLUCOSE TEST a day. STRIPS) strip documented as of this encounter Care Teams Contact Center Team Lead Relationship Specialty Start Date End Date Richardson Graham MD PCP - General Family Medicine 04/06/12 07/18/14[address] [address] documented as of this encounter
--- OUTSIDE RECORDS SUMMARY | 2022-09-20 12:27 | XMS_ITS | Encounter Summary ---
:1950 Author Organization [employer] Address [address] [address] Phone Care Team Providers Name Role Phone Richardson Graham MD Primary Care Provider Reason for Visit Reason Comments Cough congestion Encounter Details Date Type Department Care Team Description 07/19/2014 Office Visit [facility] Pretty caban sinusitis (Primary Dx); URGENT CARE Bug bite [address] [place] [address] Social History Tobacco Use Types Packs/Day Years Used Date Smoking Tobacco: Never Smokeless Tobacco: Never Alcohol Use Standard Drinks/Week Comments No 0 (1 standard drink = 0.6 oz pure alcoho l) occasional Sex Assigned at Date Recorded Not on file documented as of this encounter Last Filed Vital Signs Vital Sign Reading Time Taken Comments Blood Pressure 139/79 07/19/2014 4:54 PM CDT Pulse 62 07/19/2014 4:54 PM CDT Temperature 36.1 ??C (97 ??F) 07/19/2014 4:54 PM CDT Respiratory Rate - - Oxygen Saturation - - Inhaled Oxygen Concentration - - Weight 122.5 kg (270 lb) 07/19/2014 4:54 PM CDT Height 177.8 cm (5' 10) 07/19/2014 4:54 PM CDT Body Mass Index 38.74 07/19/2014 4:54 PM CDT documented in this encounter Ordered Prescriptions Prescription Sig Dispensed Refills Start Date End Date cefaDROXil (DURICEF) 500 Take 1 Cap by mouth 28 Cap 0 07/29/2014 MG capsuleIndications: Bug two times a day for bite 10 days. documented in this encounter Progress Notes Carmelo Dodge MD - 07/19/2014 5:09 PM CDT HISTORY OF PRESENT ILLNESS: Jose Pabon is a 64 year old male presenting with a 1 week history of nasal congestion, postnasaldrip and facial pressure. Denies shortness of breath, nausea or vomiting and chest pain. History reviewed, occasional problems with sinusitis noted. Past Medical History Diagnosis Date ??? Diabetes mellitus type II ??? Obstructive sleep apnea ??? Hypertension ??? Obesity ??? Pancreatitis, acute 09/22/2011 ??? Eczema Hands and elbows Outpatient Prescriptions Marked as Taking for the 07/19/14 encounter (Office Visit) with [facility] Medication Sig ??? cefaDROXil (DURICEF) 500 MG capsule Take 1 Cap by mouth two times a day for 10 days. ??? ARNAV CONTOUR TEST STRIP strip Test four times daily ??? CIALIS 20 MG tablet TAKE ONE TABLET BY MOUTH NEEDED ??? metFORMIN SR osmotic (FORTAMET) 1000 MG (OSM) 24 hour tablet Take 1 Tab by mouth every morning with breakfast. Swallow tablet whole; do not crush, divide or chew. ??? glyBURIDE (DIABETA) 5 MG tablet Take 1 Tab by mouth every morning with breakfast. ??? metoprolol tartrate (LOPRESSOR) 50 MG tablet Take 1 Tab by mouth two times a day. ??? Lancet Devices MISC 1 Each by Does not apply route four times a day. ??? betamethasone dipropionate 0.05 % cream APPLY TO AFFECTED AREA TWICE DAILY NEEDED ??? Zinc 50 MG TABS Take 1 Tab by mouth one time a day. ??? CHILDRENS ASPIRIN 81 MG chewable tablet 81 mg, ORAL, DAILY, Refills: 0, 02/06/09 18:34:01, Substitution Permitted, current med (Hx) ??? multivitamin (TAB-A-LISA) TABS 1 tablet, ORAL, DAILY, Refills: 0, 02/06/09 18:34:57, Substitution Permitted, current med (Hx) No Facility-Administered Medications for the 07/19/14 encounter (Office Visit) with [facility]. Allergies Allergen Reactions ??? Penicillins Anaphylaxis ??? Band Aid [Adhesive Tape] RASH History Smoking status ??? Never Smoker Smokeless tobacco ??? Never Used PHYSICAL EXAM: BP 139/79 Pulse 62 Temp(Src) 36.1 ??C (97 ??F) (Tympanic) Ht 5' 10 (1.778 m) Wt 270 lb (122.471 kg) BMI 38.74 kg/m2 GENERAL APPEARANCE: Healthy; alert and oriented X3; no acute distress HEAD: Atraumatic; normocephalic; without lesions EYES: Conjunctiva, corneas and eyelids normal; pupils equal, round, reactive to light and accommodation (PERRLA); extraocular movements intact (EOMI); fundi normal EARS: External ears normal; ear canals normal; tympanic membranes normal NOSE: POSITIVES: rhinorrhea, purulent, sinus tenderness frontal MOUTH/OROPHARYNX: Normal lips, tongue, buccal mucosa and pharynx without lesions NECK: Supple with no nodes, jugular venous distention, thyromegaly or bruits LUNGS: Normal respirations; good expansion with good diaphragmatic excursion; clear to auscultation and percussion with no extra sounds HEART: Regular rhythm and rate; S1 and S2 normal; no murmurs, heaves, thrills, clicks or rubs Sinus X-Ray: not indicated ASSESSMENT: Acute Sinusitis PLAN: Begin: duricef for 2 weeks documented in this encounter Plan of Treatment Not on filedocumented as of this encounter Visit Diagnoses Diagnosis Acute sinusitis - Primary Acute sinusitis, unspecified Bug bite documented in this encounter Discontinued Medications Medication Sig Discontinue Reason Start Date End Date cefaDROXil (DURICEF) 500 Take 1 Cap by mouth 4 07/19/2014 MG capsuleIndications: two times a day for Bug bite 10 days. documented as of this encounter Care Teams Virtual Reality Specialist Relationship Specialty Start Date End Date Richardson Graham MD PCP - General Family Medicine 07/19/14 09/22/[address] [address] documented as of this encounter
--- OUTSIDE RECORDS SUMMARY | 2022-09-20 12:27 | XMS_ITS | Encounter Summary ---
:1950 Author Organization [employer] Address [address] [address] Phone Care Team Providers Name Role Phone Richardson Graham MD Primary Care Provider Reason for Visit Reason Comments Refill Request Encounter Details Date Type Department Care Team Description 01/05/2015 Refill [facility] Olivia Graham MD Refill Request FAMILY MEDICINE [address] [facility] [place] [address] [place] [address] [phone] Social History Tobacco Use Types Packs/Day Years [...] Sig Dispensed Refills Start Date End Date betamethasone dipropionate Apply to affected 45 g 1 0.05 % cream area twice daily as needed documented in this encounter Plan of Treatment Not on filedocumented as of this encounter Visit Diagnoses Not on filedocumented in this encounter Discontinued Medications Medication Sig Discontinue Reason Start Date End Date betamethasone APPLY TO AFFECTED 03/21/2012 5 dipropionate 0.05 % cream AREA TWICE DAILY NEEDED documented as of this encounter Care Teams Interventional Radiology Tech Relationship Specialty Start Date End Date Richardson Graham MD PCP - General Family Medicine 07/19/14 09/22/16[address] [address] documented as of this encounter
--- OUTSIDE RECORDS SUMMARY | 2022-09-20 12:27 | XMS_ITS | Encounter Summary ---
:1950 Author Organization [employer] Address [address] [address] Phone Care Team Providers Name Role Phone Richardson Graham MD Primary Care Provider Reason for Visit Reason Comments Refill Request CIALIS 20 MG tablet Encounter Details Date Type Department Care Team Description 03/28/2014 Refill [facility] Olivia Graham MD Refill Request ([facility] FAMILY MEDICINE 2023 20 MG tablet) 2023 [place] [address] [place] [id number] (Wo rk) Social History Tobacco Use Types Packs/Day Years Used Date Smoking Tobacco: Never Smokeless Tobacco: Never Alcohol Use Standard Drinks/Week Comments No 0 (1 standard drink = 0.6 oz pure alcoho l) occasional Sex Assigned at Date Recorded Not on file documented as of this encounter Ordered Prescriptions Prescription Sig Dispensed Refills Start Date End Date CIALIS 20 MG tablet TAKE ONE TABLET BY MOUTH 6 Tab 0 09/15/2014 NEEDED documented in this encounter Miscellaneous Notes Telephone Encounter - Galina Covarrubias RN - 03/29/2014 9:10 AM CDT Your note from 09/13/13 stated: ED. We talked about options. He really has not had too much luck with the Cialis-type medicine. We are going to set up an appointment with Urology for an opinion, and weare going to recheck his testosterone level. documented in this encounter Plan of Treatment Not on filedocumented as of this encounter Visit Diagnoses Not on filedocumented in this encounter Discontinued Medications Medication Sig Discontinue Reason Start Date End Date CIALIS 20 MG tablet TAKE ONE TABLET BY MOUTH 3 03/28/2014 NEEDED documented as of this encounter Care Teams Batch Heat Treat Operator Relationship Specialty Start Date End Date Richardson Graham MD PCP - General Family Medicine 04/06/12 07/18/14[address] [id number] documented as of this encounter
--- OUTSIDE RECORDS SUMMARY | 2022-09-20 12:27 | XMS_ITS | Encounter Summary ---
:1950 Author Organization [employer] Address [address] [address] Phone Care Team Providers Name Role Phone Richardson Graham MD Primary Care Provider Reason for Visit Reason Comments Eye Swelling Encounter Details Date Type Department Care Team Description 09/26/2014 Emergency [facility] Morgan Storm, [facility] Emergency conjunctivitis, left Department [address] (Primary Dx) [address] [place] [address] [place], [place] [id number] Social History Tobacco Use Types Packs/Day Years Used Date Smoking Tobacco: Never Smokeless Tobacco: Never Alcohol Use Standard Drinks/Week Comments No 0 (1 standard drink = 0.6 oz pure alcoho l) occasional Sex Assigned at Date Recorded Not on file documented as of this encounter Last Filed Vital Signs Vital Sign Reading Time Taken Comments Blood Pressure 177/89 09/26/2014 9:26 PM DEPUTY PROSECUTING ATTORNEY Pulse 64 09/26/2014 9:26 PM DEPUTY PROSECUTING ATTORNEY Temperature 36.6 ??C (97.8 ??F) 09/26/2014 9:26 PM DEPUTY PROSECUTING ATTORNEY Respiratory Rate 16 09/26/2014 9:26 PM DEPUTY PROSECUTING ATTORNEY Oxygen Saturation 98% 09/26/2014 9:26 PM DEPUTY PROSECUTING ATTORNEY Inhaled Oxygen Concentration - - Weight 119.7 kg (264 lb) 09/26/2014 9:26 PM DEPUTY PROSECUTING ATTORNEY Height 177.8 cm (5' 10) 09/26/2014 9:26 PM DEPUTY PROSECUTING ATTORNEY Body Mass Index 37.88 09/26/2014 9:26 PM DEPUTY PROSECUTING ATTORNEY documented in this encounter Functional Status Functional Status Response Date of Assessment Patient's Vision Adequate to Safely Complete Daily No 09/26/2014 Activities Patient's Memory Adequate to Safely Complete Daily No 09/26/2014 Activities Cognitive Status Response Date of Assessment Patient's Judgment Adequate to Safely Complete Daily No 09/26/2014 Activities documented as of this encounter Discharge Instructions Discharge InstructionsMorgan Storm MD - 09/26/2014 10:12 PM CST Take steroid pack and Benadryl as recommended. Cool compresses twice or 3 times daily. Follow[facility] at [facility] in one to 2 days as needed. TY PROSECUTING ATTORNEY documented in this encounter Medications at Time of Discharge Medication Sig Dispensed Refills Start Date End Date COMPOUNDED RX by INTRACAVERNOSAL route 0 09/16/20 14 as needed (erectile dysfunction). ARNAV CONTOUR TEST Test four times daily 100 Each 2 03/2014 STRIP strip Lancet Devices MISC 1 Each by Does not apply 100 Each 4 route four times a day. Zinc 50 MG TABS Take 1 Tab by mouth as 30 Tab 0 09/17/20 11 needed. CHILDRENS ASPIRIN 81 81 mg, ORAL, DAILY, 81.000 0 2008 MG chewable tablet Refills: 0, 02/06/09 18:34:01, Substitution Permitted, current med (Hx) multivitamin 1 tablet, ORAL, DAILY, 1.000 Tab 0 2009 (TAB-A-LISA) TABS Refills: 0, 02/06/09 18:34:57, Substitution Permitted, current med (Hx) documented as of this encounter Ordered Prescriptions Prescription Sig Dispensed Refills Start Date End Date diphenhydrAMINE (BENADRYL) Take 1 Cap by 24 Cap 0 201301/08/2015 25 MG capsule mouth three times a day as needed for Itching. predniSONE (DELTASONE) 10 4 tablets daily 30 Tab 0 09/2601/08/2015 MG tablet for 3 days, 3 tablets daily for 3 days, 2 tablets daily for 3 days, 1 tablet daily for 3 days. documented in this encounter Discharge Disposition Disposition Code Departure Means Destination Home and/or Self Detention documented in this encounter ED Notes Beryl Simental RN - 09/26/2014 10:50 PM CST Discharge instructions reviewed with pt and . Instymed script provided for Prednisone with instructions discussed. Pt concerned about taking Prednisone due to diabetes, pt advised to contact PCP inmorning on further direction regarding this. Pt to follow-up with eye clinic in 2-3 days if needed. No further concerns. TY PROSECUTING ATTORNEY Morgan Storm MD - 09/26/2014 10:04 PM CST Patient: Jose Pabon Chief Complaint: Eye Swelling History of Present Illness: HPI Patient presents to the emergency department as a 64-year-old male who comes in complaining of left sunshine-orbital swelling beginning at 8:00 this after noon. Patient has been on azithromycin, guaifenesin and steroid nasal spray for sinus infection. Vision has been unaffected. He has noted swelling to the upper and lower left eyelids. He has not noted any erythema. No scratches or wounds to his left eye. No pain in and around his left eye. Review of Systems: Review of Systems Constitutional: Negative for fever and chills. Eyes: Positive for itching. Negative for photophobia, pain, discharge, redness and visual disturbance. Neurological: Negative for weakness. Allergies Allergen Reactions ??? Penicillins Anaphylaxis ??? Band Aid [Adhesive Tape] RASH Prior to Admission Medication List Last Medication Reconciliation Action: ED Triage Only Loreta Monzon RN 09/26/2014 9:27 PM ARNAV CONTOUR TEST STRIP strip Test four times daily CHILDRENS ASPIRIN 81 MG chewable tablet 81 mg, ORAL, DAILY, Refills: 0, 02/06/09 18:34:01, Substitution Permitted, current med (Hx) COMPOUNDED RX by INTRACAVERNOSAL route as needed (erectile dysfunction). Lancet Devices MISC 1 Each by Does not apply route four times a day. Zinc 50 MG TABS Take 1 Tab by mouth one time a day. amLODIPine (NORVASC) 5 MG tablet Take 1 Tab by mouth one time a day. azithromycin (ZITHROMAX) 250 MG tablet Take 2 tablets (500 mg) on day 1 and take 1 tablet (250 mg) on days 2-5. betamethasone dipropionate 0.05 % cream APPLY TO AFFECTED AREA TWICE DAILY NEEDED glyBURIDE (DIABETA) 5 MG tablet Take 1 Tab by mouth every morning with breakfast. metFORMIN SR osmotic (FORTAMET) 1000 MG (OSM) 24 hour tablet Take 1 Tab by mouth every morning with breakfast. Swallow tablet whole; do not crush, divide or chew. Patient taking differently: Take 500 mg by mouth every morning with breakfast. Swallow tablet whole; do not crush, divide or chew. metoprolol tartrate (LOPRESSOR) 50 MG tablet Take 1 Tab by mouth two times a day. multivitamin (TAB-A-LISA) TABS 1 tablet, ORAL, DAILY, Refills: 0, 02/06/09 18:34:57, Substitution Permitted, current med (Hx) Past Medical History: Past Medical History Diagnosis Date ??? Diabetes mellitus type II ??? Obstructive sleep apnea ??? Hypertension ??? Obesity ??? Pancreatitis, acute 09/22/2011 ??? Eczema Hands and elbows Past Surgical History: Past Surgical History Procedure Laterality Date ??? Knee arthroscopy Both knees; ACL repair left; Meniscus on the right ??? Lap,cholecystectomy 09/25/11 with cholangioram ??? Colonoscopy 10/08/2012 10 yr f/u Family History: Family History Problem Relation Age of Onset ??? Diabetes ??? Parkinson's Disease Father Parkinson's ??? Cancer Father Prostate ??? Leukemia Mother Leukemia ??? Cancer Brother Prostate ??? Cardiovascular Disease Brother Dysrrhythmia ??? GI Disease Sister IBS ??? Musculo-skeletal Disease Sister Osteoporosis Social History: He reports that he has never smoked. He has never used smokeless tobacco. He reports that he does not drink alcohol or use illicit drugs. Exam: BP 177/89 Pulse 64 Temp(Src) 97.8 ??F (36.6 ??C) (Oral) Resp 16 Ht 1.778 m (5' 10) Wt 119.75 kg (264 lb) BMI 37.88 kg/m2 SpO2 98% Visual Acuity Right Eye: 20/13 Left Eye: 20/20 Both Eyes: 20/13 Corrected: Yes Distance: 20 feet Done By: Rebecca Moran RN Physical Exam: Physical Exam Constitutional: He appears well-developed and well-nourished. No distress. HENT: Head: Normocephalic and atraumatic. Eyes: EOM are normal. Pupils are equal, round, and reactive to light. Patient shows swelling to left upper and lower eyelids. Patient shows mild chemosis of the left eye,inferior aspect. No drainage at this time. Normal extraocular movements. Normal pupil reaction. Normal pupil size and shape. Cardiovascular: Regular rhythm and normal heart sounds. Pulmonary/Chest: Effort normal and breath sounds normal. Nursing note and vitals reviewed. Other Results: Emergency Department Course: Clinical impression is likely allergic conjunctivitis. I spoke with on-call kosher inspector who agrees. We'll treat with steroid pack, and Benadryl. Patient will apply cool compresses, and patient willfollow-up with ophthalmology in the office in 1-2 days if any further concerns. Patient will return to the emergency department if increasing redness, fever, any vision change. Patient voiced full understanding and agreement with these discharge plans and instructions. Procedures: Procedures Assessment: (372.14) Allergic conjunctivitis, left (primary encounter diagnosis) Plan: Discharge Prescriptions Medication Sig Dispense Start Date End Date Auth. Provider predniSONE (DELTASONE) 10 MG tablet 4 tablets daily for 3 days, 3 tablets daily for 3 days, 2 tablets daily for 3 days, 1 tablet daily for 3 days. 30 Tab 09/26/2014 Morgan Storm MD diphenhydrAMINE (BENADRYL) 25 MG capsule Take 1 Cap by mouth three times a day as needed for Itching. 24 Cap 09/26/2014 Morgan Storm MD [facility] Morgan Storm MD 09/27/14 1736 TY PROSECUTING ATTORNEY Madison Moran RN - 09/26/2014 9:57 PM CST 64 yr old male pt presents to ER with c/o periorbital swelling to his left eye that started around 2000 tonight. Recently diagnose with a sinus infection and treated with Zithromax. Completed yesterday. Has been using nasal spray and mucinex as well. States his eye swelled Friday but resolved. Last eye appointment less than one month ago. TY PROSECUTING ATTORNEY Loreta Monzon RN - 09/26/2014 9:25 PM CST Periorbital swelling since 1999, left side TY PROSECUTING ATTORNEY documented in this encounter Plan of Treatment Not on filedocumented as of this encounter Visit Diagnoses Diagnosis Allergic conjunctivitis, left - Primary documented in this encounter Care Teams Head Of Ict Relationship Specialty Start Date End Date Richardson Graham MD PCP - General Family Medicine 07/19/14 09/22/16[address] [address] documented as of this encounter
--- OUTSIDE RECORDS SUMMARY | 2022-09-20 12:27 | XMS_ITS | Encounter Summary ---
:1950 Author Organization [employer] Address [address] [address] Phone Care Team Providers Name Role Phone Richardson Graham MD Primary Care Provider Reason for Visit Reason Comments Referral [facility] Nephrology Encounter Details Date Type Department Care Team Description 06/20/2014 Notes [facility] Brenda Vang , Referral ([facility] FAMILY MEDICINE PA-C Nephrology) 2023 [facility] [address] 2023 [place] [address] [place] [phone] [place] [id number] (Wo rk) Social History Tobacco Use Types Packs/Day Years Used Date Smoking Tobacco: Never Smokeless Tobacco: Never Alcohol Use Standard Drinks/Week Comments No 0 (1 standard drink = 0.6 oz pure alcoho l) occasional Sex Assigned at Date Recorded Not on file documented as of this encounter Progress Notes Kiki Silva - 06/20/2014 12:19 PM CDT Referral received and faxed to [facility] Nephrology. Patient will receive a call to schedule appointment from that facility once patient's chart/ information have been reviewed. For questions, please have patient call [phone] to speak with scheduling office. Thank you documented in this encounter Plan of Treatment Not on filedocumented as of this encounter Visit Diagnoses Not on filedocumented in this encounter Care Teams Milliner Helper Relationship Specialty Start Date End Date Richardson Graham MD PCP - General Family Medicine 04/06/12 07/18/14[address] [id number] documented as of this encounter
--- OUTSIDE RECORDS SUMMARY | 2022-09-20 12:27 | XMS_ITS | Encounter Summary ---
:1950 Author Organization [employer] Address [address] [address] Phone Care Team Providers Name Role Phone Richardson Graham MD Primary Care Provider Reason for Visit Reason Onset Date Comments Medication Question 05/25/2014 Encounter Details Date Type Department Care Team Description 05/25/2014 Telephone [facility] UROLOGY Mirela Muhammad, Medication Question [address] RN [place] [id number] Social History Tobacco Use Types Packs/Day Years Used Date Smoking Tobacco: Never Smokeless Tobacco: Never Alcohol Use Standard Drinks/Week Comments No 0 (1 standard drink = 0.6 oz pure alcoho l) occasional Sex Assigned at Date Recorded Not on file documented as of this encounter Miscellaneous Notes Telephone Encounter - Mirela Muhammad RN - 05/25/2014 10:49 AM CDT Patient calls today following self injection of Trimix. Patient reports no response at home despite having response in the office with Dr. Tovar. Discussed injection technique and common reasons of inadequate response. Patient stated, I did have pain and stress when I injected, and maybe it didn't work because I already used it in the office. Encouraged patient to relax and give self steady injection in the correct areas, and to wait at least a day before injecting again. Patient denied need for mailed education. Patient will try again next week and call office with results. Patient verbalized understanding, will call if has further questions or concerns. documented in this encounter Plan of Treatment Not on filedocumented as of this encounter Visit Diagnoses Not on filedocumented in this encounter Care Teams Glove Turner Relationship Specialty Start Date End Date Richardson Graham MD PCP - General Family Medicine 04/06/12 07/18/14[address] [address] documented as of this encounter
--- OUTSIDE RECORDS SUMMARY | 2022-09-20 12:27 | XMS_ITS | Encounter Summary ---
:1950 Author Organization [employer] Address [address] [address] Phone Care Team Providers Name Role Phone Richardson Graham MD Primary Care Provider Reason for Visit Reason Comments Refill Request Encounter Details Date Type Department Care Team Description 11/11/2014 [facility] Brenda Vang, LAURA Refill Request FAMILY MEDICINE 2023 [facility] 2023 [facility] [place] [address] [place] [address] [phone] Social History Tobacco Use Types Packs/Day Years [...] Sig Dispensed Refills Start Date End Date metFORMIN SR osmotic TAKE ONE TABLET EVERY 90 Tab 0 10/1511/17/2014 (FORTAMET) 1000 MG (OSM) MORNING WITH 24 hour tablet BREAKFAST documented in this encounter Miscellaneous Notes Telephone Encounter - Galina Covarrubias RN - 11/13/2014 12:03 PM CST See note from pharmacy. Your ov note from 06/14/14 stated decrease metformin to 0.5 tab (500mg) daily. OWS ARCHITECT documented in this encounter Plan of Treatment Not on filedocumented as of this encounter Visit Diagnoses Not on filedocumented in this encounter Discontinued Medications Medication Sig Discontinue Reason Start Date End Date metFORMIN SR osmotic Take 1 Tab by mouth 02/24/2014 11/11/2014 (FORTAMET) 1000 MG (OSM) every morning with 24 hour breakfast. Swallow tabletIndications: tablet whole; do not Diabetes mellitus, type crush, divide or II (HCC) chew. documented as of this encounter Care Teams Adult Services Librarian Relationship Specialty Start Date End Date Richardson Graham MD PCP - General Family Medicine 07/19/14 09/22/16[address] [address] documented as of this encounter
--- OUTSIDE RECORDS SUMMARY | 2022-09-20 12:27 | XMS_ITS | Encounter Summary ---
:1950 Author Organization [employer] Address [address] [address] Phone Care Team Providers Name Role Phone Richardson Graham MD Primary Care Provider Reason for Visit Reason Comments Refill Request Encounter Details Date Type Department Care Team Description 10/06/2014 [facility] Olivia Graham MD Refill Request FAMILY MEDICINE [address] 2023 [facility] [place] [address] [place] [address] [phone] Social History Tobacco Use Types Packs/Day Years [...] Refills Start Date End Date amLODIPine (NORVASC) 5 MG Take one tablet by 90 Tab 2 03/02/2015 tablet mouth one time daily metoprolol tartrate Take one tablet by 180 Tab 2 10/06/20 14 07/16/2015 (LOPRESSOR) 50 MG tablet mouth twice daily documented in this encounter Miscellaneous Notes Telephone Encounter - Isabel Parker RN - 10/07/2014 1:24 PM CST Patient's medication list, allergies, last labs, and last office visit pertaining to this specific medication have been reviewed during this refill encounter. Medication refilled per protocol. ESS TANK TENDER documented in this encounter Plan of Treatment Not on filedocumented as of this encounter Visit Diagnoses Not on filedocumented in this encounter Discontinued Medications Medication Sig Discontinue Reason Start Date End Date metoprolol tartrate Take 1 Tab by mouth 10/12/2013 1 12/07/2013 (LOPRESSOR) 50 MG tablet two times a day. amLODIPine (NORVASC) 5 MG Take 1 Tab by mouth 10/12/20 13 10/06/2014 tablet one time a day. documented as of this encounter Care Teams Strategy Consultant Relationship Specialty Start Date End Date Richardson Graham MD PCP - General Family Medicine 07/19/14 09/22/16[address] [address] documented as of this encounter
--- OUTSIDE RECORDS SUMMARY | 2022-09-20 12:27 | XMS_ITS | Encounter Summary ---
:1950 Author Organization [employer] Address [address] [address] Phone Care Team Providers Name Role Phone Richardson Graham MD Primary Care Provider Reason for Visit Reason Comments ED Follow up low T Encounter Details Date Type Department Care Team Description 04/11/2014 Office Visit [facility] UROLOGY Felice Tovar, Low testosterone (Primary Dx ); [address] [facility] ED (erectile dysfunction) [place] [address] 2023 [facility] [phone] [place] [address] Social History Tobacco Use Types Packs/Day Years Used Date Smoking Tobacco: Never Smokeless Tobacco: Never Alcohol Use Standard Drinks/Week Comments No 0 (1 standard drink = 0.6 oz pure alcoho l) occasional Sex Assigned at Date Recorded Not on file documented as of this encounter Last Filed Vital Signs Vital Sign Reading Time Taken Comments Blood Pressure 122/74 04/11/2014 10:32 AM CDT Pulse 64 04/11/2014 10:32 AM CDT Temperature - - Respiratory Rate - - Oxygen Saturation - - Inhaled Oxygen Concentration - - Weight - - Height - - Body Mass Index - - documented in this encounter Progress Notes Felice Tovar MD - 04/12/2014 11:24 AM CDT Care-n-Share Patient Name: ALINE PABON Date of Service: 04/11/2014 : 1950 Age: 64Y Sex: M Site MRN: Patient Loc/Room #: BRDUR/ Provider: Felice Tovar MD, Urology OFFICE NOTE SITE: [facility] SUBJECTIVE: Arsh is here with a chief complaint of low testosterone and erectile dysfunction. After taking Axiron, his testosterone level was 1220 on 04/07/2014. He did not have any improvement in libido, erectile function, or energy level. Therefore, we will hold off on any testosterone injection. The Axiron caused him to have burning and he did not like this effect. He reports he is able to have erections; they simply do not last. He was interested in a penile ring but after we further discussed this, penile injection therapy is opted for. He will likely need a very low dose of TriMix solution, i.e., 0.2 mL. PLAN: I asked that he follow up in one month for a test injection, after he received the medication from [facility] pharmacy, which was ordered today. 15 minute appointment, over 50% spent in discussion and coordination of care. Felice Tovar MD [facility] Urology cc: /BJQ Job ID: [id number] Document ID: [id number] Felice Tovar MD - 04/11/2014 10:50 AM CDT This note has been dictated. This note has been dictated. documented in this encounter Plan of Treatment Not on filedocumented as of this encounter Visit Diagnoses Diagnosis Low testosterone - Primary Other testicular hypofunction ED (erectile dysfunction) Impotence of organic origin documented in this encounter Care Teams Manager Reliability Relationship Specialty Start Date End Date Richardson Graham MD PCP - General Family Medicine 04/06/12 07/18/14[address] [id number] documented as of this encounter
--- OUTSIDE RECORDS SUMMARY | 2022-09-20 12:27 | XMS_ITS | Encounter Summary ---
:1950 Author Organization [facility] Address [address] [address] Phone Care Team Providers Name Role Phone Richardson Graham MD Primary Care Provider Reason for Referral Outgoing Referral - Provider Request (Routine) - NO REFERRAL NEEDED Specialty Diagnoses / Procedures Referred By Contact Refer red To Contact Nephrology Diagnoses Renal insufficiency syndrome Brenda Vang PA-C 2023 [facility] [place] [place] [id number] Referral ID Status Reason Start Date Expiration Date Visits V isits Requested Authorized [id number] NO REFERRAL 06/14/2014 06/14/2014 1 1 NEEDED Comments Reason for referral: renal insufficiency Referred to (facility name): first avail able Provider requested: first available Referral made at the request of [facility] Clinician Reason for Visit Reason Comments Diabetes Blood Pressure Encounter Details Date Type Department Care Team Description 06/14/2014 Office Visit Brenda Agrawal Diabetes mellitus type II (Primary Dx); [facility] Foot pain, left; MEDICINE 2023 [facility] Essential hypertension, lalo gn; [address] [facility] Renal insufficiency; [place] Hyperlipidemia LDL goal < 10 0 [place] [id number] Social History Tobacco Use Types Packs/Day Years Used Date Smoking Tobacco: Never Smokeless Tobacco: Never Alcohol Use Standard Drinks/Week Comments No 0 (1 standard drink = 0.6 oz pure alcoho l) occasional Sex Assigned at Date Recorded Not on file documented as of this encounter Last Filed Vital Signs Vital Sign Reading Time Taken Comments Blood Pressure 132/80 06/14/2014 9:01 AM CDT Pulse 54 06/14/2014 9:01 AM CDT Temperature 36.2 ??C (97.2 ??F) 06/14/2014 9:01 AM CDT Respiratory Rate - - Oxygen Saturation - - Inhaled Oxygen Concentration - - Weight 115.2 kg (254 lb) 06/14/2014 9:01 AM CDT Height 177.8 cm (5' 10) 06/14/2014 9:01 AM CDT Body Mass Index 36.45 06/14/2014 9:01 AM CDT documented in this encounter Progress Notes Brenda Vang PA-C - 06/14/2014 9:06 AM CDT Jose Pabon is a 64 year old male here for Chief Complaint Patient presents with ??? Diabetes ??? Blood Pressure Patient reports home sugars have been around 116 in the morning, otherwise 100- 110 at which time he will take 1/2 tab of Glyburide. He takes a full tab if >110, and he skips the Glyburide if <100. He has not been having the hypoglycemia like he had before. He denies any sores on the feet but mentions he was bit by an insect a few weeks ago on the right medial ankle and has a small sore which istaking awhile to heal but is improving. He has occasional feet and leg swelling. For about 2 months,he occasionally notices a weird sensation or discomfort in the left distal foot near the 5th toe if he walks on it just right. We have also been watching patient's cholesterol which was at goal 3 months ago and now is slightly elevated again. We discussed starting a low dose statin, but patient prefers to work on lifestyle factors and recheck in 3 months. He states he just returned from a fishing trip and ate a lot of fried food. Blood pressure is at goal. His kidney function continues to gradually decrease. He states he does try to drink a lot of herbal tea. In the past, we had discussed discontinuing his Metformin, and he had held this at one point dueto renal function. He has not previously seen the stockfeed miller. No other concerns today. History Substance Use Topics ??? Smoking status: Never Smoker ??? Smokeless tobacco: Never Used ??? Alcohol Use: No Comment: occasional Current Outpatient Prescriptions Medication Sig ??? CIALIS 20 MG tablet TAKE ONE [...] by mouth two times a day. ??? amLODIPine (NORVASC) 5 MG tablet Take 1 Tab by mouth one time a day. ??? glucose blood test strip (BLOOD GLUCOSE TEST STRIPS) strip 1 Strip four times a day. ??? Lancet Devices MISC [...] 18:34:57, Substitution Permitted, current med (Hx) No current facility-administered medications for this visit. OBJECTIVE: BP 132/80 Pulse 54 Temp(Src) 36.2 ??C (97.2 ??F) (Tympanic) Ht 5' 10 (1.778 m) Wt 254 lb (115.214 kg) BMI 36.45 kg/m2 General Appearance: healthy, alert and orientated X3, in no distress, cooperative and pleasant male Skin: right medial ankle shows an erythematous papule with scab <0.5cm. no ulcerations of feet. there is a small deep mass palpable around the distal 4th and 5th left metatarsals. Lungs: normal respiration and clear to auscultation Heart: regular rhythm, normal heart sounds, no murmur Extremity: trace feet and ankle edema Neuro: microfilament testing intact of bilateral feet Xray left foot: Negative ASSESSMENT/PLAN: (250.00) Diabetes mellitus type II (primary encounter diagnosis) (729.5) Foot pain, left (401.1) Essential hypertension, benign (593.9) Renal insufficiency (272.4) Hyperlipidemia LDL goal < 100 Recheck BMP in 6 weeks, and recheck complete fasting labs in 3 months with annual physical. Referral to Nephrology for gradually decreasing renal function. Patient encouraged to drink at least8 glasses of water or caffeine-free tea daily. Decrease metformin to 0.5 tab (500mg) daily. Continue on Glyburide at 5mg daily. Suggested trying shoe inserts for left foot pain. If this does not help, may consider podiatry referral down the road. Recommend wearing compression stockings and keeping feet elevated when having swelling as this glenna interfere with wound healing. Return in 3 months for complete physical, sooner prn. Call or return to clinic with further concerns. Brenda Crocker LPN - 06/14/2014 9:04 AM CDT Chief Complaint Patient presents with ??? Diabetes ??? Blood Pressure [facility] #[id number] [facility], , Fall Risk: No Depression During the past month, have you often been bothered by feeling down, depressed, hopeless, little interest or pleasure in doing things? Not at all documented in this encounter Nursing Notes Lucille Alarcon LPN - 05/31/2014 11:23 AM CDT This chart was prepped for visit by Lucille Alarcon LPN on 05/31/2014. documented in this encounter Plan of Treatment Not on filedocumented as of this encounter Procedures Procedure Name Priority Date/Time Associated Diagnosis Comme nts XR FOOT LEFT 3 OR Routine 06/14/2014 9:44 AM Foot pain, left R esults for this MORE VIEWS CDT procedure are i n the results section. documented in this encounter Results (ABNORMAL) BASIC MET PROF (09/13/2014 8:54 AM PROPOSAL LEAD WRITER) P athologist Signature SODIUM 142 134 - 143 09/13/2014 [facility] mEq/L 9:38 AM [facility] POTASSIUM 4.8 3.4 - 5.1 09/13/[address] [facility] [facility] mEq/L 9:38 AM [facility] Chloride 108 99 - 110 09/13/[address] [facility] mEq/L 9:38 AM [facility] CO2 24 19 - 29 09/13/[address] [facility] mEq/L 9:38 AM [facility] BUN 24 5 - 24 09/13/[address] [facility] mg/dL 9:38 AM [facility] Creatinine 1.59 (H) 0.70 - 09/13/[address] [facility] 1.20 mg/dL 9:38 AM [facility] GFR CALC 44 (A) 09/13/[address] [facility] 9:38 AM [facility] Comment: GFR Normal: >60 mL/min/1.73 m2 Calcium 9.5 8.4 - 10.5 mg/dL 09/13/2014 9:38 AM [facility] ANION GAP 10 3 - 15 09/13/2014 9:38 AM [facility] GLUCOSE 148 (H) 70 - 100 mg/dL 09/13/2014 9:38 AM [facility] Comment: Current ADA criteria are ?Normal: 70-99 mg/dL ?Impaired Fasting Glucose: 100-125 mg/dL ?Diabetes Mellitus: at or above 126 mg/dL The diagnosis of diabetes must be confi rmed on a subsequent day by measuring FPG, 2-hr PG or random plasma glucose (if symptoms are present). Specimen Anatomical Collection Method Collection Time Receive d Time (Source) Location / / Volume Laterality 09/13/2014 8:54 AM 4 8:54 PROPOSAL LEAD WRITER AM PROPOSAL LEAD WRITER Brenda Vang PA-C EC CHEMISTRY ORDERABLES Performing Organization Address [facility] Phon e Number [facility] [phone] [place], [place] [address] LABORATORY [place], [place] LABORATORY MICROALB,RANDOM (08/05/2014 8:12 AM CDT) Patholo gist Method Time Signature Urine 0.6 mg/dL 08/05/2014 ST. Microalbumin 8:56 AM CDT [facility] URINE CREATININE 156.80 mg/dL 08/05/2014 ST. 8:56 AM CDT [facility] Urine 4 0 - 29 08/05/2014 [facility]. Microalbumin/Crea 8:56 AM CDT [facility] LABORATORY Specimen Anatomical Collection Method Collection Time Receive d Time (Source) Location / / Volume Laterality 08/05/2014 8:12 AM 4 8:12 CDT AM CDT Brenda Vang PA-C EC URINE ORDERABLES Performing Organization Address City/[facility]/ZIP Code Phon e Number [facility] [phone] [place], [place] [address] LABORATORY [place], [place] LABORATORY (ABNORMAL) LIPID PROFILE (08/05/2014 8:10 AM CDT) P athologist Signature Cholesterol 191 114 - 200 08/05/2014 [facility] mg/dL 9:04 AM CDT [facility] Comment: Total Cholesterol Reference Ranges Desirable: ? <200 ?mg/dL Borderline High: ?? 200-239 mg/dL High: ?>239 ?mg/ dL TRIGLYCERIDE 180 10 - 200 mg/dL 08/05/2014 9:04 AM CDT [facility] Comment: ?Triglyceride If patient is non-fasting, the result of the triglyceride is invalid. ?? Triglyceride Reference Ranges ?? Normal: ?10-200 mg/d L ?? Borderline High: ??150-200 mg/dL ?? High: ? 201-499 mg/d L ?? Very High: ? =500 ?mg/ dL HDL CHOLESTEROL 34 (L) 40 - 60 mg/dL 08/05/2014 9:04 A M CDT [facility] LDL- CALCULATED 121 mg/dL 08/05/2014 9:04 AM CDT [facility] Comment: LDL Cholesterol Reference Ranges Optimal: ?<100 ? mg/dL Near Optimal: ? 100-129 ??mg/dL Borderline High: ??130-159 ??mg/dL High: ? 160-189 ??mg/dL Very High: ?>189 ? mg/dL Specimen Anatomical Collection Method Collection Time Receive d Time (Source) Location / / Volume Laterality 08/05/2014 8:10 AM 4 8:10 CDT AM CDT Narrative [facility] - 08/05/2014 9:04 AM CDT fasting Brenda Vang PA-C EC CHEMISTRY ORDERABLES ABN Performing Organization Address City/State/ZIP Code Phon e Number [facility] [phone] [place], [place] [address] LABORATORY [place], [place] LABORATORY (ABNORMAL) COMPR MET PANEL (08/05/2014 8:10 AM CDT) P athologist Signature SODIUM 141 134 - 143 08/05/2014 [facility] mEq/L 9:04 AM CDT [facility] POTASSIUM 4.6 3.4 - 5.1 08/05/2014 [facility] mEq/L 9:04 AM CDT [facility] Chloride 108 99 - 110 08/05/2014 [facility] mEq/L 9:04 AM [facility] CO2 23 19 - 29 08/05/2014 [facility] mEq/L 9:04 AM [facility] GLUCOSE 137 (H) 70 - 100 08/05/2014 [facility] mg/dL 9:04 AM [facility] Comment: Current ADA criteria are ?Normal: 70-99 mg/dL ?Impaired Fasting Glucose: 100-125 mg/dL ?Diabetes Mellitus: at or above 126 mg/dL The diagnosis of diabetes must be confi rmed on a subsequent day by measuring FPG, 2-hr PG or random plasma glucose (if symptoms are present). BUN 30 (H) 5 - 24 mg/dL 08/05/2014 9:04 AM [facility] Creatinine 1.65 (H) 0.70 - 1.20 mg/dL 08/05/2014 9:04 AM [facility] GFR CALC 42 (A) 08/05/2014 9:04 AM [facility] Comment: GFR Normal: >60 mL/min/1.73 m2 Calcium 9.6 8.4 - 10.5 mg/dL 08/05/2014 9:04 AM [facility] Protein, Total 6.9 6.0 - 8.0 g/dL 08/05/2014 9:04 A M [facility] Albumin 4.1 3.5 - 5.0 g/dL 08/05/2014 9:04 AM [facility] ALK PHOSPHATASE 65 40 - 150 IU/L 08/05/2014 9:04 AM C DT [facility] ALT(SGPT) 23 6 - 40 IU/L 08/05/2014 9:04 AM [facility] AST(SGOT) 18 10 - 40 IU/L 08/05/2014 9:04 AM [facility] TOTAL BILIRUBIN 0.9 0.2 - 1.2 mg/dL 08/05/2014 9:04 AM CDT [facility] ANION GAP 10 3 - 15 08/05/2014 9:04 AM CDT [facility] Specimen Anatomical Collection Method Collection Time Receive d Time (Source) Location / / Volume Laterality 08/05/2014 8:10 AM 4 8:10 CDT AM CDT Narrative [facility] - 08/05/2014 9:04 AM CDT fasting Brenda Vang PA-C EC CHEMISTRY ORDERABLES Performing Organization Address [facility] Phon e Number [facility] [phone] [place], [place] [address] LABORATORY [place], [place] LABORATORY (ABNORMAL) A1C(HGB AIC) (08/05/2014 8:10 AM CDT) athologist Signature A1C (HGB AIC) 6.1 (H) 4.0 - 6.0 08/05/2014 ST. % 8:21 AM CDT [facility] Est Average 128 mg/dL 08/05/2014 ST. Glucose 8:21 AM [facility] Comment: According to ADA guidelines, the [facility] center ed average glucose (eAG) will be calculated for all HgbA1c results. Specimen Anatomical Collection Method Collection Time Receive d Time (Source) Location / / Volume Laterality 08/05/2014 8:10 AM 4 8:10 CDT AM CDT Narrative [facility] - 08/05/2014 8:21 AM CDT fasting Brenda Vang PA-C EC CHEMISTRY ORDERABLES ABN Performing Organization Address City/[facility] Phon e Number [facility] [phone] [place] [address] LABORATORY [place], [place] LABORATORY XR FOOT LEFT 3 OR MORE VIEWS (06/14/2014 9:44 AM CDT) Anatomical Region Laterality Modality Foot Radiographic Imaging Specimen (Source) Anatomical Collection Method Collection Time Re ceived Time Location / / Volume Laterality 06/14/2014 9:44 AM CDT Narrative 06/15/2014 4:37 PM CDT This document is currently in Final Status Exam XR FOOT LEFT 3 OR MORE VIEWS HISTORY: Sensation of mass with occasion al pain; Region of Interest and Additional Information - at metatarsals 4-5 FINDINGS: Advanced degenerative change 1 st MTP joint. Scattered IP joint degenerative change. No appreciable evidence for mass. IMPRESSION: 1. No acute osseous abnormality. Dictated By: Bart Yanes MD 06/14/20 14 9:58 AM Edited By: SUSAN 06/14/2014 10:13 AM Signed: Bart Yanes MD 06/15/2014 4: 37 PM Procedure Note Bart Yanes MD - 06/15/2014Format ting of this note might be different from the original. This document is currently in Final Stat us Exam XR FOOT LEFT 3 OR MORE VIEWS HISTORY: Sensation of mass with occasion al pain; Region of Interest and Additional Information - at metatarsals 4-5 FINDINGS: Advanced degenerative change 1 st MTP joint. Scattered IP joint degenerative change. No appreciable evidence for mass. IMPRESSION: 1. No acute osseous abnormality. Dictated By: Bart Yanes MD 06/14/20 14 9:58 AM Edited By: SUSAN 06/14/2014 10:13 AM Signed: Bart Yanes MD 06/15/2014 4: 37 PM Brenda Vang PA-C EC DIAGNOSTIC IMAGING ORDERA BLES documented in this encounter Visit Diagnoses Diagnosis Diabetes mellitus type II - Primary Type II or unspecified type diabetes sadia litus without mention of complication, not stated as uncontrolled Foot pain, left Pain in limb Essential hypertension, benign Renal insufficiency Unspecified disorder of kidney and urete r Hyperlipidemia LDL goal < 100 Other and unspecified hyperlipidemia documented in this encounter Orders REFERRAL Count Last Ordered Date First Ordered Date APPT WITH NEPHROLOGY [facility] 1 06/14/2014 documented in this encounter Care Teams Manager Group Home Relationship Specialty Start Date End Date Richardson Graham MD PCP - General Family Medicine 04/06/12 07/18/[address] [address] documented as of this encounter
--- OUTSIDE RECORDS SUMMARY | 2022-09-20 12:27 | XMS_ITS | Encounter Summary ---
:1950 Author Organization [employer] Address [address] [address] Phone Care Team Providers Name Role Phone Richardson Graham MD Primary Care Provider Reason for Visit Reason Comments Sinus Pain Encounter Details Date Type Department Care Team Description 01/08/2015 Office Visit [facility] [place] arsh maxillary sinusitis (Primary Dx); URGENT CARE Acute sinusitis [address] [place] [address] Social History Tobacco Use Types Packs/Day Years Used Date Smoking Tobacco: Never Smokeless Tobacco: Never Alcohol Use Standard Drinks/Week Comments No 0 (1 standard drink = 0.6 oz pure alcoho l) occasional Sex Assigned at Date Recorded Not on file documented as of this encounter Last Filed Vital Signs Vital Sign Reading Time Taken Comments Blood Pressure 122/76 01/08/2015 11:13 AM CDT Pulse 80 01/08/2015 11:13 AM CDT Temperature 36.7 ??C (98.1 ??F) 01/08/2015 11:13 AM CDT Respiratory Rate - - Oxygen Saturation 96% 01/08/2015 11:13 AM CDT Inhaled Oxygen Concentration - - Weight 132.5 kg (292 lb) 01/08/2015 11:13 AM CDT Height 177.8 cm (5' 10) 01/08/2015 11:13 AM CDT Body Mass Index 41.9 01/08/2015 11:13 AM CDT documented in this encounter Functional Status Functional Status Response Date of Assessment Patient's Vision Adequate to Safely Complete Daily No 09/26/2014 Activities Patient's Memory Adequate to Safely Complete Daily No 09/26/2014 Activities Cognitive Status Response Date of Assessment Patient's Judgment Adequate to Safely Complete Daily No 09/26/2014 Activities documented as of this encounter Patient Instructions Patient InstructionsValerie Gonzalez MD - 01/08/2015 11:24 AM CDT Sinusitis What is sinusitis? Sinusitis is inflamed or infected linings of the sinuses. The sinuses are hollow spaces in the bonesof your face. They connect with the nose through small openings. Like the nose, they are lined with membranes that make mucus. How does it occur? The passageways between sinuses and from the sinuses to the nose are very narrow. Swelling of the sinus linings cause them to produce too much mucus. The mucus fills up the sinuses and may block the passageways. This leads to pressure changes in the sinuses that can be painful. The trapped mucus may become infected. A number of different irritants can cause swelling and sinusitis. Sinusitis often occurs after a cold, but not always. Bacteria, viruses, allergies, and even fungus can cause sinusitis. If your nasal bones have been injured or are deformed, causing partial blockage of the sinus openings, you are more likely to get sinusitis. What are the symptoms? Symptoms include: feeling of fullness and congestion in your head a headache that is most painful when you first wake up in the morning and when you bend your head down or forward tenderness above, behind, or below the eyes sore cheeks, or what feels like a toothache or sore jaw runny or stuffy nose cough, especially at night a feeling of fluid draining in the back of your throat (postnasal drainage) morning or evening sore throat. How is it diagnosed? Your health care provider will ask about your symptoms and will examine you. You may have an x-ray to look for swelling, fluid, or small benign growths (polyps) in the sinuses. How is it treated? Decongestants may help. They may be nonprescription or prescription. They are available as liquids, pills, and nose sprays. Your health care provider may prescribe an antibiotic. In some cases you may need to take decongestants and antibiotics for several weeks. If you have chronic (recurrent) sinus infections, allergies may be the cause. Your health care provider may prescribe antihistamines or prescription nasal sprays (steroids or cromolyn) to treat the allergies. If you have chronic, severe sinusitis that does not respond to treatment with medicines, surgery maybe done. The surgeon can create an extra or enlarged passageway in the wall of the sinus cavity. This allows the sinuses to drain more easily through the nasal passages. This should help them stay freeof infection. How long will the effects last? Symptoms may improve gradually over 3 to 10 days. Depending on what caused the sinusitis and how severe it is, it may last for days, weeks, or months. Recovering from sinusitis is much like recovering from a cold. How can I take care of myself? Avoid smoke, other inhaled irritants, and allergens, such as animal dander. Add moisture to the air with a humidifier or a vaporizer, unless you have mold allergy (mold may grow in your vaporizer). Inhale steam from a basin of hot water or shower to relieve pain. Use decongestants as directed. Never use nasal spray decongestants for more than 3 days. After 3 days they may cause your symptoms to get worse. Get plenty of rest and drink a lot of water. Elevate your head in bed, but only slightly. Put warm compresses on painful areas. Take antibiotics as prescribed. Use all of the medicine, even if you feel better. See your health care provider if the pain lasts for several days or you have signs of bacterial infection, such as fever or foul-smelling discharge from your nose. If the sinuses above or below your eyes are swollen or bulging, see your health care provider right away. How can I help prevent sinusitis? Treat your colds and allergies promptly. Use decongestants as soon as you start having symptoms. Do not smoke. Drink lots of fluids. Humidify your home if the air is particularly dry. If you have sinus infections often, consider having allergy tests. If sinusitis continues to be a problem despite treatment, you might need an exam by an ear, nose, and throat doctor (chucking lathe operator). The specialist will check for polyps or deformed bone that may beblocking your sinuses. Developed by [employer]. Published by [employer]. documented in this encounter Ordered Prescriptions Prescription Sig Dispensed Refills Start Date End Date azithromycin (ZITHROMAX) Take 2 tablets (500 6 Tab 0 02/23/2015 250 MG tabletIndications: mg) on day 1 and Acute maxillary sinusitis take 1 tablet (250 mg) on days 2-5. documented in this encounter Progress Notes Valerie Gonzalez MD - 01/08/2015 11:24 AM CDT HISTORY OF PRESENT ILLNESS: Jose Pabon is a 64 year old male presenting with a 1 week history of sore throat, nasal congestion, postnasal drip, cough and facial pressure. Denies fever, shortness of breath, nausea or vomiting and chest pain. History reviewed, occasional problems with sinusitis noted. Past Medical History Diagnosis Date ??? Diabetes mellitus type II ??? Obstructive sleep apnea ??? Hypertension ??? Obesity ??? Pancreatitis, acute 09/22/2011 ??? Eczema Hands and elbows Outpatient Prescriptions Marked as Taking for the 01/08/15 encounter (Office Visit) with [facility] Medication Sig ??? azithromycin (ZITHROMAX) 250 MG tablet Take 2 tablets (500 mg) on day 1 and take 1 tablet (250 mg) on days 2-5. ??? betamethasone dipropionate 0.05 % cream Apply to affected area twice daily as needed ??? metFORMIN SR osmotic (GLUCOPHAGE-XR) 500 MG 24 hour tablet Take 1 Tab by mouth every morning with breakfast. Swallow tablet whole; do not crush, divide or chew. ??? metoprolol tartrate (LOPRESSOR) 50 MG tablet Take one tablet by mouth twice daily ??? amLODIPine (NORVASC) 5 MG tablet Take one tablet by mouth one time daily ??? glyBURIDE (DIABETA) 5 MG tablet TAKE ONE TABLET EVERY MORNING WITH BREAKFAST ??? predniSONE (DELTASONE) 10 MG tablet 4 tablets daily for 3 days, 3 tablets daily for 3 days, 2 tablets daily for 3 days, 1 tablet daily for 3 days. ??? diphenhydrAMINE (BENADRYL) 25 MG capsule Take 1 Cap by mouth three times a day as needed for Itching. ??? COMPOUNDED RX by INTRACAVERNOSAL route as [...] tobacco ??? Never Used PHYSICAL EXAM: BP 122/76 Pulse 80 Temp(Src) 36.7 ??C (98.1 ??F) (Tympanic) Ht 5' 10 (1.778 m) Wt 292 lb (132.45 kg) BMI 41.90 kg/m2 SpO2 96% GENERAL APPEARANCE: Healthy; alert and oriented X3; no acute distress HEAD: Atraumatic; normocephalic; without lesions EYES: Conjunctiva, corneas and eyelids normal; pupils equal, round, reactive to light and accommodation (PERRLA); extraocular movements intact (EOMI); EARS: External ears normal; ear canals normal; tympanic membranes normal NOSE: Nares normal; septum midline; mucosa normal MOUTH/OROPHARYNX: Normal lips, tongue, buccal mucosa and pharynx without lesions NECK: Supple with no nodes, jugular venous distention, thyromegaly LUNGS: Normal respirations; good expansion with good diaphragmatic excursion; clear to auscultation with no extra sounds HEART: Regular rhythm and rate; S1 and S2 normal; no murmurs, heaves, thrills, clicks or rubs Sinus X-Ray: normal ASSESSMENT: Acute Sinusitis PLAN: Symptomatic therapy including over the counter medications, fluids, and rest Begin: Zithromax documented in this encounter Plan of Treatment Not on filedocumented as of this encounter Visit Diagnoses Diagnosis Acute maxillary sinusitis - Primary Acute sinusitis Acute sinusitis, unspecified documented in this encounter Discontinued Medications Medication Sig Discontinue Reason Start Date End Date azithromycin (ZITHROMAX) Take 2 tablets (500 4 01/08/2015 250 MG tabletIndications: mg) on day 1 and Acute maxillary sinusitis take 1 tablet (250 mg) on days 2-5. documented as of this encounter Care Teams Brim Setter Relationship Specialty Start Date End Date Richardson Graham MD PCP - General Family Medicine 07/19/14 09/22/[address] [address] documented as of this encounter
--- OUTSIDE RECORDS SUMMARY | 2022-09-20 12:27 | XMS_ITS | Encounter Summary ---
:1950 Author Organization [employer] Address [address] [address] Phone Care Team Providers Name Role Phone Richardson Graham MD Primary Care Provider Reason for Visit Reason Comments Insect Bite Encounter Details Date Type Department Care Team Description 04/17/2014 Office Visit [facility] ug bite (Primary Dx) URGENT CARE [address] [place], [place] [id number] Social History Tobacco Use Types Packs/Day Years Used Date Smoking Tobacco: Never Smokeless Tobacco: Never Alcohol Use Standard Drinks/Week Comments No 0 (1 standard drink = 0.6 oz pure alcoho l) occasional Sex Assigned at Date Recorded Not on file documented as of this encounter Last Filed Vital Signs Vital Sign Reading Time Taken Comments Blood Pressure 135/74 04/17/2014 12:22 PM CDT Pulse 60 04/17/2014 12:22 PM CDT Temperature 36.6 ??C (97.8 ??F) 04/17/2014 12:22 PM CDT Respiratory Rate - - Oxygen Saturation - - Inhaled Oxygen Concentration - - Weight 113.4 kg (250 lb) 04/17/2014 12:22 PM CDT Height 177.8 cm (5' 10) 04/17/2014 12:22 PM CDT Body Mass Index 35.87 04/17/2014 12:22 PM CDT documented in this encounter Patient Instructions Patient InstructionsJack Fernandez MD - 04/17/2014 12:49 PM CDT Duricef Prednisone Leg elevation Compression socks Follow up with regular provider if symptoms change, worsen or persist. documented in this encounter Ordered Prescriptions Prescription Sig Dispensed Refills Start Date End Date cefaDROXil (DURICEF) 500 Take 1 Cap by mouth 20 Cap 0 07/19/2014 MG capsuleIndications: Bug two times a day for bite 10 days. predniSONE (DELTASONE) 20 1 PILL TWICE A DAY 8 Tab 0 05/10/2014 MG tabletIndications: Bug FOR 4 DAYS bite documented in this encounter Progress Notes Jack Fernandez MD - 04/17/2014 12:52 PM CDT HPI: Jose Pabon is a 64 year old male who presents to URGENT CARE 04/17/2014 for evaluation of a bite. Patient states that he was bit by a insect. he was bitten on the right, left lower leg and this occurred about 2 days ago. Both lower legs are swollen. No shortness of breath or other issues. PMH: Past Medical History Diagnosis Date ??? Diabetes mellitus type II ??? Obstructive sleep apnea ??? Hypertension ??? Obesity ??? Pancreatitis, acute 09/22/2011 ??? Eczema Hands and elbows PAST SURGICAL HISTORY: Past Surgical History Procedure Laterality Date ??? Knee arthroscopy Both knees; ACL repair left; Meniscus on the right ??? Lap,cholecystectomy 09/25/11 with cholangioram ??? Colonoscopy 07/16/02 10 yr f/u ALLERGIES: Penicillins and Band aid MEDICATIONS: Current Outpatient Prescriptions Medication Sig ??? predniSONE (DELTASONE) 20 MG tablet 1 PILL TWICE A DAY FOR 4 DAYS ??? cefaDROXil (DURICEF) 500 MG capsule Take 1 Cap by mouth two times a day for 10 days. ??? CIALIS 20 MG tablet TAKE ONE [...] No current facility-administered medications for this visit. SOCIAL HISTORY: History Substance Use Topics ??? Smoking status: Never Smoker ??? Smokeless tobacco: Never Used ??? Alcohol Use: No Comment: occasional ROS: All other symptoms reviewed and found to be negative PHYSICAL EXAM: VITALS:BP 135/74 Pulse 60 Temp(Src) 36.6 ??C (97.8 ??F) (Temporal Scanner) Ht 5' 10 (1.778 m) Wt 250 lb (113.399 kg) BMI 35.87 kg/m2 GENERAL: no acute distress HEENT: AT/NC, PERRL,EOMI, conjunctiva clear. There is no pain to percussion over the sinuses Both TM's appear normal. Oropharynx:uvula midline, no lesions, there is no posterior drainage. Dentition within normal limits. NECK: supple with minimal anterior cervical lymphadenopathy, trachea midline, supple, non tender, nothyromegally, no rigidity. LUNGS: no tachypnea, retractions or accessory muscle use. Lungs clear without rales, rhonchi or wheezes. CV: RRR with S1S2 without murmur rub or gallop SKIN: Bite wound is noted at right, left lower leg .both legs swollen , right slightly erythematous,no evidence of DVT. ASSESSMENT: , secondarily infected (919.4, E906.4) Bug bite (primary encounter diagnosis) PLAN: Duricef, Prednisone (Medication reviewed, patient/parent verbalized understanding and has no furtherquestions.) Leg elevation Compression socks Follow up with regular provider if symptoms change, worsen or persist. documented in this encounter Plan of Treatment Not on filedocumented as of this encounter Visit Diagnoses Diagnosis Bug bite - Primary documented in this encounter Care Teams Knife Edger Relationship Specialty Start Date End Date Richardson Graham MD PCP - General Family Medicine 04/06/12 07/18/[address] [id number] documented as of this encounter
--- OUTSIDE RECORDS SUMMARY | 2022-09-20 12:27 | XMS_ITS | Encounter Summary ---
:1950 Author Organization [employer] Address [address] [address] Phone Care Team Providers Name Role Phone Richardson Graham MD Primary Care Provider Reason for Visit Reason Comments Cough congestion Encounter Details Date Type Department Care Team Description 02/23/2015 Office Visit [facility] [place] (Primary Dx) URGENT CARE [address] [place], [place] [phone] Social History Tobacco Use Types Packs/Day Years Used Date Smoking Tobacco: Never Smokeless Tobacco: Never Alcohol Use Standard Drinks/Week Comments No 0 (1 standard drink = 0.6 oz pure alcoho l) occasional Sex Assigned at Date Recorded Not on file documented as of this encounter Last Filed Vital Signs Vital Sign Reading Time Taken Comments Blood Pressure 131/82 02/23/2015 11:20 AM CDT Pulse 66 02/23/2015 11:20 AM CDT Temperature 36.3 ??C (97.4 ??F) 02/23/2015 11:20 AM CDT Respiratory Rate - - Oxygen Saturation 97% 02/23/2015 11:29 AM CDT Inhaled Oxygen Concentration - - Weight 128.8 kg (284 lb) 02/23/2015 11:20 AM CDT Height - - Body Mass Index 40.75 01/08/2015 11:13 AM CDT documented in this encounter Functional Status Functional Status Response Date of Assessment Patient's Vision Adequate to Safely Complete Daily No 09/26/2014 Activities Patient's Memory Adequate to Safely Complete Daily No 09/26/2014 Activities Cognitive Status Response Date of Assessment Patient's Judgment Adequate to Safely Complete Daily No 09/26/2014 Activities documented as of this encounter Patient Instructions Patient InstructionsLaNahed schwartz PA-C - 02/23/2015 11:37 AM CDT Follow up as needed Take cough preparation as directed; do not take both together Increase fluids and rest documented in this encounter Ordered Prescriptions Prescription Sig Dispensed Refills Start Date End Date benzonatate (TESSALON) Take 2 Caps by mouth 60 Cap 0 03/02/2015 100 MG capsule three times a day. Swallow whole. Do not break or chew. guaiFENesin - codeine Take 10 mL by mouth 240 mL 0 02/2303/02/2015 (ROBITUSSIN AC) 100-10 every four hours as MG/5ML syrup needed (cough). documented in this encounter Progress Notes Nahed Storm PA-C - 02/23/2015 11:41 AM CDT HPI: Jose Pabon is a 65 year old male who presents to URGENT CARE 02/23/2015 for evaluation of cough. He also has congestion. This initially started off as a cold about a week or so ago and has since progressed to a cough, congestion. Nothing makes the cough better and it seems to be worse at night. Last night he was in the recliner for 3 hours. There has been no SOB,CP,fevers,chills night sweat,nausea,vomiting or diarrhea. He has been take Mucinex and Robitussin. PMH: Past Medical History Diagnosis Date ??? Diabetes mellitus type II ??? Obstructive sleep apnea ??? Hypertension ??? Obesity ??? Pancreatitis, acute 09/22/2011 ??? Eczema Hands and elbows PAST SURGICAL HISTORY: Past Surgical History Procedure Laterality Date ??? Knee arthroscopy Both knees; ACL repair left; Meniscus on the right ??? Lap,cholecystectomy 09/25/11 with cholangioram ??? Colonoscopy 10/08/2012 10 yr f/u ALLERGIES: Penicillins and Band aid MEDICATIONS: Current Outpatient Prescriptions Medication Sig ??? guaiFENesin-codeine (ROBITUSSIN-AC) 100-10 MG/5ML Syrup Take 10 mL by mouth every four hours as needed (cough). ??? benzonatate (TESSALON) 200 MG capsule Take 1 Cap by mouth three times a day. Swallow capsule whole (do not break or chew). ??? metFORMIN-XR (GLUCOPHAGE-XR) 500 MG 24 hour tablet TAKE ONE TABLET EVERY MORNING WITH BREAKFAST.SWALLOW WHOLE, DO NOT CRUSH, DIVIDE, OR CHEW. ??? betamethasone dipropionate 0.05 % cream Apply to affected area twice daily as needed ??? metoprolol tartrate (LOPRESSOR) 50 MG tablet Take one tablet by mouth twice daily ??? amLODIPine (NORVASC) 5 MG tablet Take one tablet by mouth one time daily ??? glyBURIDE (DIABETA) 5 MG tablet TAKE ONE TABLET EVERY MORNING WITH BREAKFAST ??? COMPOUNDED RX by INTRACAVERNOSAL route as [...] ??? Alcohol Use: No Comment: occasional ROS: constitutional: no fever,chills,night sweats or weight loss HEENT: as above CV/PULM: no SOB, minimal cough, no CP GASTROINTESTINAL: no nausea, vomiting or diarrhea : no urgency, frequency or dysuria PHYSICAL EXAM: VITALS:BP 131/82 Pulse 66 Temp(Src) 36.3 ??C (97.4 ??F) (Tympanic) Wt 284 lb (128.822 kg) SpO2 97% VS are reviewed. GENERAL: no acute distress HEENT: AT/NC, PERRL,EOMI, conjunctiva clear. There is no pain to percussion over the sinuses Both TM's appear normal. Oropharynx:uvula midline, no lesions, there is no posterior drainage. Dentition within normal limits. NECK: supple without cervical lymphadenopathy, trachea midline, supple, non tender, no thyromegally,no rigidity. LUNGS: no tachypnea, retractions or accessory muscle use. Scattered rhonchi, clear with cough,no wheezes. There is good air movement. LYMPHATICS: negative ASSESSMENT: (786.2) Cough (primary encounter diagnosis) PLAN: The patient will be started on Robitussin AC and Tessalon for cough. He may want to try antihistamine like Benadryl at bedtime. The patient will follow up if he notes SOB or fever. documented in this encounter Plan of Treatment Not on filedocumented as of this encounter Visit Diagnoses Diagnosis Cough - Primary documented in this encounter Discontinued Medications Medication Sig Discontinue Reason Start Date End Date azithromycin Take 2 tablets Course of treatment 01/08/20152014 (ZITHROMAX) 250 MG (500 mg) on day 1 completed tabletIndications: and take 1 tablet Acute maxillary (250 mg) on days sinusitis 2-5. documented as of this encounter Care Teams Cement Tile Maker Relationship Specialty Start Date End Date Richardson Graham MD PCP - General Family Medicine 07/19/14 09/22/16[address] [address] documented as of this encounter
--- OUTSIDE RECORDS SUMMARY | 2022-09-20 12:27 | XMS_ITS | Encounter Summary ---
:1950 Author Organization [employer] Address [address] [address] Phone Care Team Providers Name Role Phone Richardson Graham MD Primary Care Provider Reason for Visit Reason Comments Physical Colonoscopy Screening 2011 normal Diabetes Encounter Details Date Type Department Care Team Description 09/15/2014 Office Visit [facility] Richardson Graham, Need for prophylactic vaccination and inoculation against influenza (Primary Dx); [facility] FH: prostate carcinoma; 2023 Routine g eneral medical examination [place] [address] [place] [phone] Social History Tobacco Use Types Packs/Day Years Used Date Smoking Tobacco: Never Smokeless Tobacco: Never Alcohol Use Standard Drinks/Week Comments No 0 (1 standard drink = 0.6 oz pure alcoho l) occasional Sex Assigned at Date Recorded Not on file documented as of this encounter Last Filed Vital Signs Vital Sign Reading Time Taken Comments Blood Pressure 131/70 09/15/2014 8:34 AM DYNAMO TENDER left arm Pulse 59 09/15/2014 8:34 AM DYNAMO TENDER Temperature 36.3 ??C (97.3 ??F) 09/15/2014 8:34 AM DYNAMO TENDER Respiratory Rate - - Oxygen Saturation - - Inhaled Oxygen Concentration - - Weight 122.9 kg (271 lb) 09/15/2014 8:34 AM DYNAMO TENDER Height 177.8 cm (5' 10) 09/15/2014 8:34 AM DYNAMO TENDER Body Mass Index 38.88 09/15/2014 8:34 AM DYNAMO TENDER documented in this encounter Ordered Prescriptions Prescription Sig Dispensed Refills Start Date End Date influenza virus vaccine Inject 0.5 mL into 0.5 mL 0 01/201409/15/2014 sam, Age 3-64 years, the muscle one time (FLUZONE) 0.5 ML for 1 dose. SuspensionIndications: Need for prophylactic vaccination and inoculation against influenza documented in this encounter Progress Notes Richardson Graham MD - 09/16/2014 9:40 AM CST [facility] ADDENDED COPY Patient Name: ALINE PABON Date of Service: 09/15/2014 : 1950 Age: 64Y Sex: M Site MRN: Patient Loc/Room #: [facility] FP/ Provider: Richardson Graham MD, Family Practice OFFICE NOTE SITE: [facility] CHIEF COMPLAINT: 1. Well male examination. 2. Diabetes. 3. Hypertension. 4. Renal insufficiency. SUBJECTIVE: Overall Arsh is doing very well. We will update his med list as well today. PROBLEM 1: Diabetes. He is at goal for aspirin, nonsmoker, A1c, and blood pressure. He has no sores on his feet. He is having yearly eye exams. His creatinine stabilized at 1.6, but still a little elevated. He is seeing a histology specialist about this. His last cholesterol is a little up with LDL of 121. It had been running around 100. We would like to see it down less than 100. I did explain to him the new recommendations from the [place] [employer] and lipid management that we would recommend that he be on Lipitor 20 or 40 mg. He is going to consider this. At minimum, he is going to recheck hischolesterol this spring. PROBLEM 2: Hyperlipidemia. See above plan. PROBLEM 3: Hypertension, good control with current medications. We will refill. PROBLEM 4: Renal sufficiency. It has stabilized. We went back in November 2011, he was 1.2. In August 2012 it jumped to 1.4 and 1.3 and now in July 2013 a year ago went to 1.7. It has come down now to 1.[address] over the last one year. PFSH including medication list updated in the EHR. REVIEW OF SYSTEMS: A 10-point review is all negative other than on question he does notice he feels on the left foot a little bump like he is stepping on something, but no other neuropathy. He is concerned about his weight gain. EXAM: He is alert and comfortable. Blood pressure is 131/70, pulse is 59 and regular, weight 171 pounds. HEENT - TMs pearly. Nose and throat - normal. Thyroid - normal. Carotid pulses are full, no bruits. Lungs - clear. Heart - 60 and regular without murmurs. Testes - no masses. Hernia - negative. Skin - no lesions. Left foot examination - he has good peripheral pulse and there are no lesions. I think it may be just a little metatarsalgia as one can palpate just the metatarsal head as the area of discomfort. At this point it is not a significant problem for him. If he does notice that it is becoming increasingly uncomfortable, then I think we would see Podiatry. ASSESSMENT: 1. Overall healthy. I agree with Arsh I think the main issue is to get back on the weight loss program and that will help all the entities. 2. We need to watch the kidney functions. I think we should check that about every 3 to 4 months andhe is going to see the histology specialist. 3. We need to be aware of the cholesterol being up a little bit and the new recommendations. Overall health is good. Cardiac risk - negative smoking, negative blood pressure, and cholesterol isjust a little borderline. Based on the recommendations consider medication. Cancer screening - he had the colonoscopy in 2011. He had a PSA this February and we will repeat that. Skin - no lesions. Immunizations are up-to-date at this point. He will have a flu shot. PLAN: We will plan to check lab work this spring. He is going to work on the weight loss program. ADDENDUM: PROBLEM LIST: Strong family history of prostate cancer. Prostate examination showed the prostate to be 1+, no nodularity, normal consistency. Normal exam. Richardson Graham MD [facility] cc: /FRANCISCA Job ID: [id number] /tlrts Document ID: [id number] A: 09/16/2014/bes (add) MO TENDER Richardson Graham MD - 09/16/2014 5:36 AM CST This note has been dictated. MO TENDER Tennille Beckwith LPN - 09/15/2014 8:30 AM CST Depression ([place]) Screening Questions 1. During the past month, have you often been bothered by feeling down, depressed, or hopeless? Not at all 2. During the past month, have you often been bothered by little interest or pleasure in doing things? Not at all Patient was asked Screening Questionnaire for intramuscular influenza vaccination. No contraindications were identified and vaccine was administered. Chief Complaint Patient presents with ??? Physical ??? Colonoscopy Screening 2011 normal ??? Diabetes MO TENDER documented in this encounter Nursing Notes Lucille Alarcon LPN - 09/01/2014 7:42 AM CST This chart was prepped for visit by Lucille Alarcon LPN on 09/01/2014. MO TENDER documented in this encounter Plan of Treatment Not on filedocumented as of this encounter Visit Diagnoses Diagnosis Need for prophylactic vaccination and in oculation against influenza - Primary FH: prostate carcinoma Routine general medical examination at a health care facility documented in this encounter Discontinued Medications Medication Sig Discontinue Reason Start Date End Date CIALIS 20 MG tablet TAKE ONE TABLET BY Patient quit taking 03/28/20 14 09/15/2014 MOUTH NEEDED documented as of this encounter Orders Immunization/Injection Count Last Ordered Date First O rdered Date FLU VACC, QUAD, PF 1 09/15/2014 IMMUNIZATION ADMIN - INFLUENZA 1 09/15/2014 documented in this encounter Care Teams Organic Section Technical Lead Relationship Specialty Start Date End Date Richardson Graham MD PCP - General Family Medicine 10/7/14 12/11/[address] [id number] documented as of this encounter
--- OUTSIDE RECORDS SUMMARY | 2022-09-20 12:27 | XMS_ITS | Encounter Summary ---
:1950 Author Organization [employer] Address [address] [address] Phone Care Team Providers Name Role Phone Richardson Graham MD Primary Care Provider Reason for Visit Reason Onset Date Comments Results 04/12/2014 Results Encounter Details Date Type Department Care Team Description 04/12/2014 Telephone [facility] Selam Bojorquez, RN Results (Results) [address] [place], [place] [address] Social History Tobacco Use Types Packs/Day Years Used Date Smoking Tobacco: Never Smokeless Tobacco: Never Alcohol Use Standard Drinks/Week Comments No 0 (1 standard drink = 0.6 oz pure alcoho l) occasional Sex Assigned at Date Recorded Not on file documented as of this encounter Miscellaneous Notes Telephone Encounter - Selam Bojorquez - 04/12/2014 9:52 AM CDT Spoke with patient. He mentions that he had an office visit with Dr. Denis yesterday and that he isno longer taking the Axiron. He has a follow up appointment with Dr. Denis in a month. Telephone Encounter - Selam Bojorquez - 04/12/2014 9:48 AM CDT Message copied by SELAM BOJORQUEZ on FriApr 12, 2014 9:48 AM ------ Message from: DILLON DENIS Created: FriApr 08, 2014 3:29 PM 1220 (H) He may cut Axiron dose in half and recheck testosterone in 1 month ------ documented in this encounter Plan of Treatment Not on filedocumented as of this encounter Visit Diagnoses Not on filedocumented in this encounter Care Teams Inventory Worker Relationship Specialty Start Date End Date Richardson Graham MD PCP - General Family Medicine 04/06/12 07/18/14[address] [address] documented as of this encounter
--- OUTSIDE RECORDS SUMMARY | 2022-09-20 12:27 | XMS_ITS | Encounter Summary ---
:1950 Author Organization [facility] [employer] [facility] Address [address] [address] Phone Care Team Providers Name Role Phone Richardson Graham MD Primary Care Provider Reason for Visit Reason Comments Sinus Problem X2 days, pressure, drainage Sore Throat X1 day, productive cough Encounter Details Date Type Department Care Team Description 09/21/2014 Office Visit [facility] maxillary URGENT CARE sinusitis (Primary Dx) [address] [place] [address] Social History Tobacco Use Types Packs/Day Years Used Date Smoking Tobacco: Never Smokeless Tobacco: Never Alcohol Use Standard Drinks/Week Comments No 0 (1 standard drink = 0.6 oz pure alcoho l) occasional Sex Assigned at Date Recorded Not on file documented as of this encounter Last Filed Vital Signs Vital Sign Reading Time Taken Comments Blood Pressure 137/80 09/21/2014 4:49 PM RN FACULTY Pulse 57 09/21/2014 4:49 PM RN FACULTY Temperature 36.4 ??C (97.6 ??F) 09/21/2014 4:49 PM RN FACULTY Respiratory Rate - - Oxygen Saturation - - Inhaled Oxygen Concentration - - Weight 124.3 kg (274 lb) 09/21/2014 4:49 PM RN FACULTY Height 177.8 cm (5' 10) 09/21/2014 4:49 PM RN FACULTY Body Mass Index 39.31 09/21/2014 4:49 PM RN FACULTY documented in this encounter Patient Instructions Patient InstructionsJack Fernandez MD - 09/21/2014 4:57 PM CST 1. Zpack as directed. 2. Mucinex,afrin or Frank-Synephrine nasal spray as directed for three days only and salt water nasal spray. Moist hot packs to the face can also be beneficial. 3. Follow up with regular MD in one week if not better. Patient/Parent verbalizes understanding and agreement with plan. PLEASE NOTE: The examination and treatment that you have received in Urgent Care have been rendered on an urgent basis. The examination and treatment were not intended to be a substitute for routine medical care and were not an effort to provide complete medical service. It is important that you be examined again as recommended and report any new or remaining problems at that time. It is impossible to recognize and treat all elements of injury or illness in a simple Urgent Care visit. If an xray wasdone, it has been read on a preliminary basis and final review will be made by the Radiologist. You will be notified if there were any additional findings. If labs were done, you will be informed of those results once they have ALL been reviewed, unless otherwise stated. FACULTY documented in this encounter Ordered Prescriptions Prescription Sig Dispensed Refills Start Date End Date azithromycin (ZITHROMAX) Take 2 tablets (500 6 Tab 0 01/08/2015 250 MG tabletIndications: mg) on day 1 and Acute maxillary sinusitis take 1 tablet (250 mg) on days 2-5. documented in this encounter Progress Notes Jack Fernandez MD - 09/21/2014 5:00 PM CST HPI: Jose Pabon is a 64 year old male who presents to URGENT CARE 09/21/2014 for evaluation of sinus pain and congestion. This initially started off as a cold about a week or so ago. he has since developed cough, cold congestion, facial pressure and copious amounts of green nasal discharge. It is both left and right sided pressure pain, worse when bending over, seems to feel almost like there is some tooth pain, nothing makes it better and it seems to be a constant pain. There has been lots of bad tasting drainage. PMH: Past Medical History Diagnosis Date ??? [...] MEDICATIONS: Current Outpatient Prescriptions Medication Sig ??? azithromycin (ZITHROMAX) 250 MG tablet Take 2 tablets (500 mg) on day 1 and take 1 tablet (250 mg) on days 2-5. ??? COMPOUNDED RX by INTRACAVERNOSAL route as needed (erectile dysfunction). ??? ARNAV CONTOUR TEST STRIP strip Test four times daily ??? metFORMIN SR osmotic (FORTAMET) 1000 MG (OSM) 24 hour tablet Take 1 Tab by mouth every morning with breakfast. Swallow tablet whole; do not crush, divide or chew. (Patient taking differently: Take 500 mg by mouth every morning with breakfast. Swallow tablet whole; do not crush, divide or chew.) ??? glyBURIDE (DIABETA) 5 MG tablet Take 1 Tab by mouth every morning with breakfast. ??? metoprolol tartrate (LOPRESSOR) 50 MG tablet Take 1 Tab by mouth two times a day. ??? amLODIPine (NORVASC) 5 MG tablet Take 1 Tab by mouth one time a day. ??? Lancet Devices MISC 1 [...] urgency, frequency or dysuria PHYSICAL EXAM: VITALS:BP 137/80 Pulse 57 Temp(Src) 36.4 ??C (97.6 ??F) (Tympanic) Ht 5' 10 (1.778 m) Wt 274 lb (124.286 kg) BMI 39.32 kg/m2 GENERAL: no acute distress HEENT: AT/NC, PERRL,EOMI, conjunctiva clear. There is pain to percussion over both maxillary sinuses. Both TM's appear normal. Oropharynx:uvula midline, with thick green PND, dentition within normal limits. NECK: supple with minimal anterior cervical lymphadenopathy, trachea midline, supple, non tender, nothyromegally, no rigidity. LUNGS: no tachypnea, retractions or accessory muscle use, lungs clear CV: RRR with S1S2 without murmur rub or gallop SKIN: without rashes ASSESSMENT: Acute Bilateral Maxillary Sinusitis PLAN: 1. Zpack as directed. 2. Mucinex,afrin or Frank-Synephrine nasal spray as directed for three days only and salt water nasal spray. Moist hot packs to the face can also be beneficial. 3. Follow up with regular MD in one week if not better. Patient/Parent verbalizes understanding and agreement with plan. PLEASE NOTE: The examination and treatment that you have received in Urgent Care have been rendered on an urgent basis. The examination and treatment were not intended to be a substitute for routine medical care and were not an effort to provide complete medical service. It is important that you be examined again as recommended and report any new or remaining problems at that time. It is impossible to recognize and treat all elements of injury or illness in a simple Urgent Care visit. If an xray wasdone, it has been read on a preliminary basis and final review will be made by the Radiologist. You will be notified if there were any additional findings. If labs were done, you will be informed of those results once they have ALL been reviewed, unless otherwise stated. FACULTY documented in this encounter Plan of Treatment Not on filedocumented as of this encounter Visit Diagnoses Diagnosis Acute maxillary sinusitis - Primary documented in this encounter Care Teams Professional Bass Fisher Relationship Specialty Start Date End Date Richardson Graham MD PCP - General Family Medicine 07/19/14 09/22/[address] [address] documented as of this encounter
--- OUTSIDE RECORDS SUMMARY | 2022-09-20 12:27 | XMS_ITS | Encounter Summary ---
:1950 Author Organization [employer] Address [address] [address] Phone Care Team Providers Name Role Phone Richardson Graham MD Primary Care Provider Encounter Details Date Type Department Care Team Description 02/04/2015 Orders Only [facility] Richardson Graham MD Type 2 diabetes mellitus without complic ation (HCC) (Primary Dx); [facility] [place] [address] Renal insufficiency; 2023 [facility] Essential hypertension, benign; [place] Prostate cancer screening; [place] [id number] Screening, anemia, deficiency, iron [phone] Social History Tobacco Use Types Packs/Day Years [...] on filedocumented as of this encounter Results HGB (03/02/2015 8:23 AM CDT) P athologist Signature HGB 14.3 13.0 - 17.0 03/02/2015 [facility] g/dL 8:34 AM CDT [facility] Specimen Anatomical Collection Method Collection Time Receive d Time (Source) Location / / Volume Laterality 03/02/2015 8:23 AM 5 8:23 CDT AM CDT Narrative [facility] - 03/02/2015 8:34 AM CDT Fasting Richardson Graham MD EC HEMATOLOGY ORDERABLES Performing Organization Address City/[facility] Phon e Number [facility] [address] [phone] LABORATORY [place], [place] LABORATORY PSA (03/02/2015 8:23 AM CDT) P athologist Signature Prostate 0.46 0.00 - 03/02/2015 [facility] Specific 4.00 ng/mL 11:31 AM CDT LABORATORY Antigen Specimen Anatomical Collection Method Collection Time Receive d Time (Source) Location / / Volume Laterality 03/02/2015 8:23 AM 5 CDT 10:42 AM CDT Narrative [facility] - 03/02/2015 11:31 AM CDT Fasting Richardson Graham MD EC CHEMISTRY ORDERABLES ABN Performing Organization Address City/[facility] Phon e Number [facility] [address] [address] LABORATORY [facility] (ABNORMAL) LIPID PROFILE (03/02/2015 8:23 AM CDT) P athologist Signature Cholesterol 160 114 - 200 03/02/2015 [facility] mg/dL 8:54 AM CDT [facility] Comment: Total Cholesterol Reference Ranges Desirable: ? <200 ?mg/dL Borderline High: ?? 200-239 mg/dL High: ?>239 ?mg/ dL TRIGLYCERIDE 172 10 - 200 mg/dL 03/02/2015 8:54 AM CDT [facility] Comment: ?Triglyceride If patient is non-fasting, the result of the triglyceride is invalid. ?? Triglyceride Reference Ranges ?? Normal: ?10-200 mg/d L ?? Borderline High: ??150-200 mg/dL ?? High: ? 201-499 mg/d L ?? Very High: ? =500 ?mg/ dL HDL CHOLESTEROL 28 (L) 40 - 60 mg/dL 03/02/2015 8:54 A M CDT [facility] LDL- CALCULATED 98 mg/dL 03/02/2015 8:54 AM CDT [facility] Comment: LDL Cholesterol Reference Ranges Optimal: ?<100 ? mg/dL Near Optimal: ? 100-129 ??mg/dL Borderline High: ??130-159 ??mg/dL High: ? 160-189 ??mg/dL Very High: ?>189 ? mg/dL Specimen Anatomical Collection Method Collection Time Receive d Time (Source) Location / / Volume Laterality 03/02/2015 8:23 AM 5 8:23 CDT AM CDT Narrative [facility] - 03/02/2015 8:54 AM CDT Fasting Richardson Graham MD EC CHEMISTRY ORDERABLES ABN Performing Organization Address City/State/ZIP Code Phon e Number [facility] [address] [place], [place] [address] LABORATORY [place], [place] LABORATORY (ABNORMAL) BASIC MET PROF (03/02/2015 8:23 AM CDT) P athologist Signature SODIUM 144 (H) 134 - 143 03/02/2015 [facility] mEq/L 8:54 AM CDT [facility] POTASSIUM 5.2 (H) 3.4 - 5.1 03/02/2015 [facility] mEq/L 8:54 AM CDT [facility] Chloride 111 (H) 99 - 110 03/02/2015 [facility] mEq/L 8:54 AM T [facility] CO2 23 19 - 29 03/02/2015 [facility] mEq/L 8:54 AM CDT [facility] BUN 20 5 - 24 03/02/2015 [facility] mg/dL 8:54 AM [facility] Creatinine 1.75 (H) 0.70 - 03/02/2015 [facility] 1.20 mg/dL 8:54 AM [facility] GFR CALC 39 (A) 03/02/2015 [facility] 8:54 AM [facility] Comment: GFR Normal: >60 mL/min/1.73 m2 Calcium 9.9 8.4 - 10.5 mg/dL 03/02/2015 8:54 AM CDT [facility] ANION GAP 10 3 - 15 03/02/2015 8:54 AM CDT [facility] GLUCOSE 147 (H) 70 - 100 mg/dL 03/02/2015 8:54 AM CDT [facility] Comment: Current ADA criteria are ?Normal: 70-99 mg/dL ?Impaired Fasting Glucose: 100-125 mg/dL ?Diabetes Mellitus: at or above 126 mg/dL The diagnosis of diabetes must be confi rmed on a subsequent day by measuring FPG, 2-hr PG or random plasma glucose (if symptoms are present). Specimen Anatomical Collection Method Collection Time Receive d Time (Source) Location / / Volume Laterality 03/02/2015 8:23 AM 5 8:23 CDT AM CDT Narrative [facility] - 03/02/2015 8:54 AM CDT Fasting Richardson Graham MD EC CHEMISTRY ORDERABLES Performing Organization Address City/State/ZIP Code Phon e Number [facility] [address] [place], [place] [address] LABORATORY [place], [place] LABORATORY AST (03/02/2015 8:23 AM CDT) athologist Signature AST(SGOT) 25 10 - 40 03/02/2015 [facility]/L 8:54 AM CDT [facility] Specimen Anatomical Collection Method Collection Time Receive d Time (Source) Location / / Volume Laterality 03/02/2015 8:23 AM 5 8:23 CDT AM CDT Narrative [facility] - 03/02/2015 8:54 AM CDT Fasting Richardson Graham MD EC CHEMISTRY ORDERABLES Performing Organization Address City/[facility] Phon e Number [facility] [phone] [place] [address] LABORATORY [place], [place] LABORATORY (ABNORMAL) A1C(HGB AIC) (03/02/2015 8:23 AM CDT) athologist Signature A1C (HGB AIC) 6.5 (H) 4.0 - 6.0 03/02/2015 ST. % 8:37 AM CDT [facility] Est Average 140 mg/dL 03/02/2015 ST. Glucose 8:37 AM T [facility] Comment: According to ADA guidelines, the [facility] ed average glucose (eAG) will be calculated for all HgbA1c results. Specimen Anatomical Collection Method Collection Time Receive d Time (Source) Location / / Volume Laterality 03/02/2015 8:23 AM 5 8:23 CDT AM CDT Narrative [facility] - 03/02/2015 8:37 AM CDT Fasting Richardson Graham MD EC CHEMISTRY ORDERABLES ABN Performing Organization Address City/[facility] Phon e Number [address] [phone] LABORATORY [place], [place] LABORATORY documented in this encounter Visit Diagnoses Diagnosis Type 2 diabetes mellitus without complic ation (HCC) - Primary Renal insufficiency Unspecified disorder of kidney and urete r Essential hypertension, benign Prostate cancer screening Special screening for malignant neoplasm of prostate Screening, anemia, deficiency, iron Screening for iron deficiency anemia documented in this encounter Care Teams Benefits Analyst Relationship Specialty Start Date End Date Richardson Graham MD PCP - General Family Medicine 07/19/14 09/22/[address] [place] [address] documented as of this encounter
--- OUTSIDE RECORDS SUMMARY | 2022-09-20 12:27 | XMS_ITS | Encounter Summary ---
:1950 Author Organization [employer] Address [address] [address] Phone Care Team Providers Name Role Phone Richardson Graham MD Primary Care Provider Reason for Referral (Routine) - Closed Specialty Diagnoses / Procedures Referred By Contact Refer red To Contact Diabetes Center Diagnoses Diabetes mellitus, type II (HCC) Richardson Graham MD Pender, Lynn M, RN,CDE [address] [place], [place] [id number] [place] [id number] Referral ID Status Reason Start Date Expiration Date Visits Requ ested Visits Authorized [id number] Closed 03/31/2014 1 1 Question Answer Type of Referral Education/Medical Management Appointment Type Type 2 Classes - refresher Barriers/Medicare Appt Requirements N/A Type Type 2 Controlled Is this a new diagnosis? Yes Comments Specific Orders: refresher class All patients who need a glucose meter wi ll receive a meter instruction on self-glucose monitoring. Prescription fo r testing supplies sent to patient preferred pharmacy per reimbursement guidelines with consideration of insurance formulary coverage of blood glucose testing. All p atients meeting specified criteria may be seen by Advanced Practice Nurse as part of the Diabetes Resource Program. I hereby certify that I am managing this benefici reji's diabetes condition and that the above prescribed training is a necessary part of management. Reason for Visit Reason Comments Diabetes diabetes refresher Encounter Details Date Type Department Care Team Description 03/29/2014 Office Visit [facility] Diabetes Ancillary, [facility] Diabetes me llitus type II (Primary Dx); Resource Program Diab Resource Type II or unspecified type diabetes mellitus without mention of complication, not stated as uncontrolled (HCC) [address] Stree PriceMe Class [place] [address] Social History Tobacco Use Types Packs/Day Years Used Date Smoking Tobacco: Never Smokeless Tobacco: Never Alcohol Use Standard Drinks/Week Comments No 0 (1 standard drink = 0.6 oz pure alcoho l) occasional Sex Assigned at Date Recorded Not on file documented as of this encounter Progress Notes Lynsey Dooley RN,CDE - 03/31/2014 3:28 PM CDT Glass Vial Filler: Lynsey Dooley RN, CDE, and CPT Guerita Morrow RD, CDE Department: [facility], Diabetes Resource Program Visit Site: [place] [address] Meeting Room Jose Pabon is a 64 year old male with type 2 diabetes attends Diabetes Refresher Class ???Live Well, Live Healthy with Diabetes?? Referred by [facility] providers Richardson Graham M.D. for diabetes self management training. Current Pertinent Labs: HGA1C 9.6 02/25/2014 CHOL 147 02/25/2014 LDLC 77 02/25/2014 HDL 26 02/25/2014 TRIG 222 02/25/2014 CREAT 1.56 02/25/2014 GFR 45 02/25/2014 ALTSGPT 17 07/13/2013 Patient Identified learning objectives The participant will be able to: Discuss holman healthy lifestyle habits when living with diabetes Identify ways to stay up-to-date with diabetes self-care Describe possible complications of diabetes and what can be done to prevent problems Describe process of behavioral change and develop one to two personal diabetes self care goals Education methods used were: visual presentation, group discussion and interactive demonstration, and facilitation of participant shared experience. Follow-up Plan: Patient will be invited to yearly follow-up diabetes self-management education. Diabetes Care Checklist: ___ Have dedicated diabetes appt with your medical provider every 6 months. Have your feet checked during this exam. ___ Have an A1C blood test every 3 months ___ See your eye doctor every year for a dilated eye exam. ___ Take an aspirin every day (as directed by your provider). ___ Check your feet daily for redness, swelling, pain, or numbness. ___ Have a flu shot every year. ___ Don't smoke or chew tobacco. ___ See your staff educator and dietitian every year. ___ See your dentist every year. Education Start Time:1300 Education Stop Time: 1500 120 minutes documented in this encounter Plan of Treatment Not on filedocumented as of this encounter Procedures Procedure Name Priority Date/Time Associated Diagnosis Comme nts PIYUSH FLOWERS, Routine 03/31/2014 3:30 PM Type II or unspe cified GROUP CDT type diabetes mellitus without mention of complication, not stated as uncontrolled (HCC) documented in this encounter Visit Diagnoses Diagnosis Diabetes mellitus type II - Primary Type II or unspecified type diabetes sadia litus without mention of complication, not stated as uncontrolled Type II or unspecified type diabetes sadia litus without mention of complication, not stated as uncontrolled documented in this encounter Orders Procedures Count Last Ordered Date First Ordered Date PIYUSH FLOWERS, GROUP 1 03/31/2014 REFERRAL Count Last Ordered Date First Ordered Date APPT WITH [facility] 1 014 documented in this encounter Care Teams Bulk Pigment Reducer Relationship Specialty Start Date End Date Richardson Graham MD PCP - General Family Medicine 04/06/12 07/18/[address] [address] documented as of this encounter
--- OUTSIDE RECORDS SUMMARY | 2022-09-20 12:27 | XMS_ITS | Encounter Summary ---
:1950 Author Organization [employer] Address [address] [address] Phone Care Team Providers Name Role Phone Richardson Graham MD Primary Care Provider Encounter Details Date Type Department Care Team Description 09/22/2014 Hospital Encounter [facility] Radiology Lankireddy, Chr onic kidney US MD Mariana disease, stage III [address] (moderate) [place] [address] N [phone] [place] [address] Social History Tobacco Use Types Packs/Day Years Used Date Smoking Tobacco: Never Smokeless Tobacco: Never Alcohol Use Standard Drinks/Week Comments No 0 (1 standard drink = 0.6 oz pure alcoho l) occasional Sex Assigned at Date Recorded Not on file documented as of this encounter Medications at Time of Discharge [...] med (Hx) documented as of this encounter Discharge Disposition Disposition Code Departure Means Destination Discharged documented in this encounter Plan of Treatment Not on filedocumented as of this encounter Procedures Procedure Name Priority Date/Time Associated Diagnosis Comme nts US RENAL LIMITED Routine 09/22/2014 8:47 AM Chronic kidney Res ults for this COMPRESSOR TECHNICIAN disease, stage III procedure are in (moderate) the results section. documented in this encounter Results US RENAL LIMITED (09/22/2014 8:47 AM COMPRESSOR TECHNICIAN) Anatomical Region Laterality Modality Abdomen Ultrasound Specimen (Source) Anatomical Collection Method Collection Time Re ceived Time Location / / Volume Laterality 09/22/2014 8:47 AM COMPRESSOR TECHNICIAN Narrative 09/22/2014 10:54 AM COMPRESSOR TECHNICIAN This document is currently in Final Status Exam US RENAL LIMITED HISTORY: Chronic kidney disease, stage 3 ; FINDINGS: Both kidneys appear within nor mal limits in size. The right measures 12.2 x 4.8 x 6.2 cm. The left measures 13.7 x 5.8 x 5.1 cm. Both kidneys have a mildly lobular contour. Cortical echogenici ty appears within normal limits. No rao l mass or hydronephrosis is identified. There is a small cyst lower pole left kidney measuring 1.8 x 1.4 x 1.4 cm. There is no thinning of either renal cortex. Perirenal soft tissues are unremarkable. IMPRESSION: Normal sized kidneys with no abnormal echogenicity. Mildly lobular contours noted to each kidney. There is a small cyst lower pole left kidney. No other sonographic abnormality of the kidneys is identified. Dictated By: Yo Lopez MD 09/22/2014 8:5 4 AM Edited By: MARIANNE 09/22/2014 9:30 AM Signed: Yo Lopez MD 09/22/2014 10:54 AM Procedure Note Yo Lopez MD - 09/22/2014 This document is currently in Final Stat us Exam US RENAL LIMITED HISTORY: Chronic kidney disease, stage 3 ; FINDINGS: Both kidneys appear within nor mal limits in size. The right measures 12.2 x 4.8 x 6.2 cm. The left measures 13.7 x 5.8 x 5.1 cm. Both kidneys have a mildly lobular contour. Cortical echogenicity appears within normal limits. No renal mass or hydronephrosis is identified. There is a small cyst lower pole left kidney measuring 1.8 x 1.4 x 1.4 cm. There is no thinning of either renal cortex. Perirenal soft tissues are unremarkable. IMPRESSION: Normal sized kidneys with no abnormal echogenicity. Mildly lobular contours noted to each kidney. There is a small cyst lower pole left kidney. No other sonographic abnormality of the kidneys is identified. Dictated By: Yo Lopez MD 09/22/2014 8:5 4 AM Edited By: MARIANNE 09/22/2014 9:30 AM Signed: Yo Lopez MD 09/22/2014 10:54 AM Mariana Kent MD [facility] ORDERABLES documented in this encounter Visit Diagnoses Diagnosis Chronic kidney disease, stage III (moder ate) (HCC) Chronic kidney disease, Stage III (moder ate) documented in this encounter Care Teams Senior Instrumentation Engineer Relationship Specialty Start Date End Date Richardson Graham MD PCP - General Family Medicine 07/19/14 09/22/16[address] [address] documented as of this encounter
--- OUTSIDE RECORDS SUMMARY | 2022-09-20 12:28 | XMS_ITS | Encounter Summary ---
:1950 Author Organization [employer] Address [address] [address] Phone Care Team Providers Name Role Phone Richardson Graham MD Primary Care Provider Encounter Details Date Type Department Care Team Description 06/08/2013 Orders Only [facility] Richardson Graham MD Diabetes mellitus type II (Primary Dx); [facility] [address] Essential hypertension, lalo gn; 2023 [employer] Prostate cancer screening; [place]OWN[place] Screening, anemia, deficienc y, iron [place] [id number] Social History Tobacco Use Types Packs/Day Years Used Date Smoking Tobacco: Never Smokeless Tobacco: Never Alcohol Use Standard Drinks/Week Comments No 0 (1 standard drink = 0.6 oz pure alcoho l) occasional Sex Assigned at Date Recorded Not on file documented as of this encounter Plan of Treatment Not on filedocumented as of this encounter Results PSA (07/13/2013 1:29 PM CDT) athologist Signature Prostate 0.39 0.00 - [facility] Specific 4.00 ng/mL LABORATORY Antigen Specimen Anatomical Collection Method Collection Time Receive d Time (Source) Location / / Volume Laterality 07/13/2013 1:29 PM 3 2:34 CDT PM CDT Richardson Graham MD EC CHEMISTRY ORDERABLES ABN Performing Organization Address City/State/ZIP Code Phon e Number [facility] [address] [place], [place] [address] LABORATORY [facility] LABORATORY HGB (07/13/2013 1:29 PM CDT) athologist Signature HGB 13.6 13.0 - 17.0 [facility] g/dL [facility] LAB[facility] Specimen Anatomical Collection Method Collection Time Receive d Time (Source) Location / / Volume Laterality 07/13/2013 1:29 PM 3 1:35 CDT PM CDT Richardson Graham MD EC HEMATOLOGY ORDERABLES Performing Organization Address City/State/ZIP Code Phon e Number [facility] [address] [facility] [address] LABORATORY [facility] [address] [place] [address] LABORATORY (ABNORMAL) LIPID PROFILE (07/13/2013 1:29 PM CDT) athologist Signature Cholesterol 167 114 - 200 [facility] mg/dL [facility] LABORATORY Comment: Total Cholesterol Reference Ranges Desirable: ? <200 ?mg/dL Borderline High: ?? 200-239 mg/dL High: ?>239 ?mg/ dL TRIGLYCERIDE 122 10 - 200 mg/dL [facility] LABORATORY HDL CHOLESTEROL 36 (L) 40 - 60 mg/dL [facility] LABORATORY LDL- CALCULATED 107 mg/dL [facility] Comment: LDL Cholesterol Reference Ranges Optimal: ?<100 ? mg/dL Near Optimal: ? 100-129 ??mg/dL Borderline High: ??130-159 ??mg/dL High: ? 160-189 ??mg/dL Very High: ?>189 ? mg/dL Specimen Anatomical Collection Method Collection Time Receive d Time (Source) Location / / Volume Laterality 07/13/2013 1:29 PM 3 1:35 CDT PM CDT Richardson Graham MD EC CHEMISTRY ORDERABLES ABN Performing Organization Address City/State/ZIP Code Phon e Number [facility] [address] [place] [address] [facility]ATORY [facility] [address] [place] [address] LABORATORY (ABNORMAL) COMPR MET PANEL (07/13/2013 1:29 PM CDT) athologist Signature SODIUM 142 134 - 143 [facility] mEq/L [facility] LAB[facility]ORY POTASSIUM 5.0 3.4 - 5.1 [facility] mEq/L [facility] Chloride 108 99 - 110 [facility] mEq/L [facility] CO2 24 22 - 29 [facility] mEq/L [facility] GLUCOSE 115 (H) 70 - 99 [facility] mg/dL [facility] BUN 28 (H) 5 - 24 [facility] mg/dL [facility] Creatinine 1.74 (H) 0.70 - [facility] 1.[facility] mg/dL [facility] GFR CALC 40 (A) [facility] LABORATORY Comment: GFR Normal: >60 mL/min/1.73 m2 Calcium 10.2 8.4 - 10.5 mg/dL [facility] LAB[facility] Protein, Total 7.3 6.0 - 8.0 gm/dL [address] [facility] LABORATORY Albumin 4.6 3.5 - 5.0 gm/dL [facility] ME DICAL CLINIC LABORATORY ALK PHOSPHATASE 60 40 - 150 IU/L [facility] LABORATORY Comment: The reference range for this assay was c hanged to the reagent pruner's recommended range on 09-18-2012, after re view of patient results indicated that the previous internally derived ran ge was set too narrow. ALT(SGPT) 17 6 - 40 IU/L [facility] MEDICA L CLINIC LABORATORY AST(SGOT) 21 10 - 40 IU/L [facility] LABORATORY TOTAL BILIRUBIN 1.0 0.2 - 1.2 mg/dL [facility] LABORATORY ANION GAP 10 3 - 15 [facility] LABORATORY Specimen Anatomical Collection Method Collection Time Receive d Time (Source) Location / / Volume Laterality 07/13/2013 1:29 PM 3 1:35 CDT PM CDT Richardson Graham MD EC CHEMISTRY ORDERABLES Performing Organization Address City/[facility]/ZIP Code Phon e Number [facility] 2023 [facility] [place] [address] LABORATORY [facility] 2023 [place] [address] LABORATORY A1C(HGB AIC) (07/13/2013 1:29 PM CDT) athologist Signature A1C (HGB AIC) 5.3 4.0 - 6.0 [facility] % [facility] LABORATORY Est Average 105 mg/dL [facility] Glucose [facility] LABORATORY Comment: According to ADA guidelines, the estimat ed average glucose (eAG) will be calculated for all HgbA1c results. Specimen Anatomical Collection Method Collection Time Receive d Time (Source) Location / / Volume Laterality 07/13/2013 1:29 PM 3 1:35 CDT PM CDT Richardson Graham MD EC CHEMISTRY ORDERABLES ABN Performing Organization Address City/[facility]/ZIP Code Phon e Number [facility] 2023 [facility] [place] [address] LABORATORY [facility] 20[address] [place] [address] LABORATORY documented in this encounter Visit Diagnoses Diagnosis Diabetes mellitus type II - Primary Type II or unspecified type diabetes sadia litus without mention of complication, not stated as uncontrolled Essential hypertension, benign Prostate cancer screening Special screening for malignant neoplasm of prostate Screening, anemia, deficiency, iron Screening for iron deficiency anemia documented in this encounter Care Teams Fee Clerk Relationship Specialty Start Date End Date Richardson Graham MD PCP - General Family Medicine 04/06/12 07/18/14[address] [address] documented as of this encounter
--- OUTSIDE RECORDS SUMMARY | 2022-09-20 12:28 | XMS_ITS | Encounter Summary ---
:1950 Author Organization [employer] Address [address] [address] Phone Care Team Providers Name Role Phone Richardson Graham MD Primary Care Provider Encounter Details Date Type Department Care Team Description 03/14/2014 Office Visit [facility] UROLOGY Felice Tovar, Low testosterone [address] (Primary Dx) [place] [address] 2023 [facility] [phone] [place], [place] [address] Social History Tobacco Use Types Packs/Day Years Used Date Smoking Tobacco: Never Smokeless Tobacco: Never Alcohol Use Standard Drinks/Week Comments No 0 (1 standard drink = 0.6 oz pure alcoho l) occasional Sex Assigned at Date Recorded Not on file documented as of this encounter Last Filed Vital Signs Vital Sign Reading Time Taken Comments Blood Pressure 100/63 03/14/2014 9:13 AM CDT Pulse 59 03/14/2014 9:13 AM CDT Temperature - - Respiratory Rate - - Oxygen Saturation - - Inhaled Oxygen Concentration - - Weight 112.9 kg (249 lb) 03/14/2014 8:36 AM CDT stated Height - - Body Mass Index 35.73 03/10/2014 8:06 AM CDT documented in this encounter Progress Notes Felice Tovar MD - 03/17/2014 6:25 AM CDT [facility] Patient Name: ALINE PABON Date of Service: 03/14/2014 : 1950 Age: 64Y Sex: M DC Site MRN: Patient Loc/Room #: BRDUR/ Provider: Felice Tovar MD, Urology OFFICE NOTE SITE: [facility] Aline is here for followup of low testosterone and erectile dysfunction. Testosterone was 262. PSA 0.44. His diabetes is under good control. We discussed risks, benefits of Axiron, i.e. testosterone replacement and Axiron is opted for. We will check a morning level in 2 weeks and followup appointment in 4 weeks. Discussed cardiovascular effects of testosterone. We will need to follow up with hemoglobin, liver profile, and liver function tests in approximately 6 months. Blood pressure a little bit low at 93/57, pulse 61. He is asymptomatic with regard to this. Will recheck his blood pressure before he leaves the clinic today. Felice Tovar MD [facility] Urology cc: /BJQ Job ID: [id number] /[id number] Document ID: [id number] Felice Tovar MD - 03/14/2014 8:57 AM CDT This note has been dictated. documented in this encounter Plan of Treatment Not on filedocumented as of this encounter Results (ABNORMAL) TESTOSTERONE, TOTAL (04/07/2014 8:52 AM CDT) Analysis Performed At Patho logis Time Signature Testosterone, 1,220 (H) 240 - 950 04/08/2014 [facility] Total ng/dL 1:40 PM CDT FEED Comment: Testing performed by Liquid Chromatograp hy-Tandem Mass Spectrometry (LC-MS/MS). Test Performed by: [place] [address] Measurement Advisor: Darwin monahan III, M.D. 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
--- OUTSIDE RECORDS SUMMARY | 2022-09-20 12:28 | XMS_ITS | Encounter Summary ---
:1950 Author Organization [facility] Address [address] [address] Phone Care Team Providers Name Role Phone Richardson Graham MD Primary Care Provider Reason for Referral (Routine) - Closed Specialty Diagnoses / Procedures Referred By Contact Refer red To Contact Urology Diagnoses ED (erectile dysfunction) Richardson Graham MD [address] [place] [address] Referral ID Status Reason Start Date Expiration Date Visits Requ ested Visits Authorized [id number] Closed 09/13/2013 1 1 Comments Reason for Referral: ED WORKER Reason for Visit Reason Comments Physical labs drawn Friday BMP attach ed/ colon 2011/ ? td Encounter Details Date Type Department Care Team Description 09/13/[address] [facility] Richardson Graham MD Other malaise and fatigue (Primary Dx); [facility] [place] [address] Routine general medical exam ination at a health care facility; 2023 [facility] Diabetes mellitus type II; [place] ED (erectile dysfunction) [place] [id number] Social History Tobacco Use Types Packs/Day Years Used Date Smoking Tobacco: Never Smokeless Tobacco: Never Alcohol Use Standard Drinks/Week Comments No 0 (1 standard drink = 0.6 oz pure alcoho l) occasional Sex Assigned at Date Recorded Not on file documented as of this encounter Last Filed Vital Signs Vital Sign Reading Time Taken Comments Blood Pressure 113/65 09/13/2013 10:29 AM BED WORKER Pulse 52 09/13/2013 10:29 AM BED WORKER Temperature - - Respiratory Rate 12 09/13/2013 10:29 AM BED WORKER Oxygen Saturation - - Inhaled Oxygen Concentration - - Weight 108.4 kg (239 lb) 09/13/2013 10:29 AM BED WORKER Height 182.9 cm (6') 09/13/2013 10:29 AM BED WORKER Body Mass Index 32.41 09/13/2013 10:29 AM BED WORKER documented in this encounter Ordered Prescriptions Prescription Sig Dispensed Refills Start Date End Date influenza virus vaccine PF Inject 0.5 mL into 0.5 mL 0 1 11/14/2012 09/13/2013 (FLUZONE, FLUARIX the muscle one time PRESERVATIVE FREE) for 1 dose. injectionIndications: Routine general medical examination at a health care facility documented in this encounter Progress Notes Richardson Graham MD - 09/14/2013 12:51 PM CST [facility] Patient Name: ALINE PABON Date of Service: 09/13/2013 : 1950 Age: 63Y Sex: M DC Site MRN: Patient Loc/Room #: [facility] FP/ Provider: Richardson Graham MD, Family Practice OFFICE NOTE SITE: [facility] PROBLEMS: 1. Well male examination. 2. Diabetes. 3. ED. CHIEF COMPLAINT: Well man exam SUBJECTIVE: Patient has several concerns, these are addressed. Generally healthy. PAST HISTORY: Medical illnesses and medications are all up-to-date on the [facility] health review form. REVIEW OF SYSTEMS: HEENT - denies headache, change in vision or hearing. Respiratory - denies cough,asthma, TB, or pneumonia. Cardiac - denies chest pain, rheumatic fever, or heart murmur. Gastrointestinal - denies diarrhea, constipation, or melena. Genitourinary - denies dysuria or frequency. Neurologic - denies any focal neurologic change. Mental Health, endocrine - negative. OBJECTIVE: Healthy male, appearing stated age, in no acute distress. HEENT - tympanic membranes are pearly. Pupils equal, round, react to light and accommodation. Fundus is normal. Nose/throat normal. Thyroid is normal. Carotid pulses are full, with no bruits. Lungs - clear. Heart - regular without murmur. Abdomen - soft without mass. Genital - testes, no masses. Hernia negative. Prostate - is 1 to 2+, no nodularity, normal consistency. No rectal masses. Skin - normal, no lesions noted. We checked his back. He has a benign lentigo on his back. Pulses - normal peripheral. Neurologic - normal. ASSESSMENT: 1. Overall healthy. 2. Cardiac risk: Negative smoking. Negative blood pressure and being treated. Refill medications as needed. LDL cholesterol is excellent for cardiac risk. 3. Cancer screen: Includes a PSA and a prostate check. Had a colonoscopy done last year and an endoscopy. Skin - no lesions. 4. IMMUNIZATIONS: Are up-to-date including having a Zostavax, Tdap, and a flu vaccine today. PROBLEMS: 1. Diabetes. He is at goal for 8 parameters. He is on an aspirin, nonsmoker, blood pressure excellent, A1c is excellent at 5.3. We are going to recheck this, and his LDL is just a little borderline at 107. He is not on any medications. I think it is best at this point to just continue dietary measuresand recheck this in 3 to 6 months and then consider medication. He is reminded about a yearly eye exam. His creatinine has been followed closely. It had gone up in July to 1.7. We rechecked it, and it was 1.6, now 1.5. I do think it would be worthwhile for him some time to check with a nephrologistsince it is a little high compared to 2 years ago when it was 1.2. If we check it every 3 months at this point, I think it is reasonable. Asked him to stay well hydrated. No sores on his feet. 2. ED. We talked about options. He really has not had too much luck with the [facility] medicine. We are going to set up an appointment with Urology for an opinion, and we are going to recheck his testosterone level. 3. Overall I congratulated Arsh on an excellent job with his diabetes. Will monitor his lipid. Richardson Graham MD [facility] cc: /RFM Job ID: [id number] /cmwts Document ID: [id number] WORKER Richardson Graham MD - 09/14/2013 7:46 AM CST This note has been dictated. WORKER Page Lilly - 09/13/2013 10:31 AM CST Chief Complaint Patient presents with ??? Physical labs drawn Friday BMP attached/ colon ? td Fall Risk No [place]oley Screening Questions 1. During the past month, have you often been bothered by feeling down, depressed, or hopeless? Not at all 2. During the past month, have you often been bothered by little interest or pleasure in doing things? Not at all WORKER documented in this encounter Nursing Notes 09/13/2013 10:00 AM CST >> JOSTIN MATTSON LPN Mon Aug 30, 2013 1:24 PM This chart was prepped for visit by Jostin Mattson LPN on 08/30/2013. documented in this encounter Plan of Treatment Not on filedocumented as of this encounter Procedures Procedure Name Priority Date/Time Associated Diagnosis Comme nts URINALYSIS, REFLEX Routine 09/13/2013 10:32 Routine general Re sults for this TO MICROSCOPIC AM BED WORKER medical examination proced ure are in at a health care the results facility section. documented in this encounter Results (ABNORMAL) TESTOST, TOT AND FREE (09/15/2013 4:48 PM BED WORKER) P athologist Signature Testosterone, 207 (L) 240 - 950 [facility] Total ng/dL FEED Comment: Testing performed by Liquid Thumb Friendlyograp hy-Tandem Mass Spectrometry (LC-MS/MS). Test [facility] [address] [place] [address] Health Advisor: Darwin monahan III, M.D. Testosterone, Free 5.6 (L) 9 - 30 ng/dL [facility] INERD FEED Comment: Testing performed by Jose Elias downing Test Performed by: [facility] [address] [place] [address] Health Advisor: Darwin monahan III, M.D. Specimen Anatomical Collection Method Collection Time Receive d Time (Source) Location / / Volume Laterality 09/15/2013 4:48 PM 3 8:02 BED WORKER PM BED WORKER Richardson Graham MD EC LAB SEND OUT ORDERABLES Performing Organization Address City/State/ZIP Code Phon e Number [facility] FEED A1C(HGB AIC) (09/15/2013 4:48 PM BED WORKER) athologist Signature A1C (HGB AIC) 5.6 4.0 - 6.0 [facility] % [facility] Est Average 114 mg/dL [facility] Glucose [facility] Comment: According to ADA guidelines, the [facility] ed average glucose (eAG) will be calculated for all HgbA1c results. Specimen Anatomical Collection Method Collection Time Receive d Time (Source) Location / / Volume Laterality 09/15/2013 4:48 PM 3 4:48 BED WORKER PM BED WORKER Richardson Graham MD EC CHEMISTRY ORDERABLES ABN Performing Organization Address City/[facility]/ZIP Code Phon e Number [facility] [address] [place], [place] [address] LABORATORY [place], [place] LABORATORY URINALYSIS (09/13/2013 10:32 AM BED WORKER) Patholo gist Method Time Signature Type [facility] Color YELLOW Yellow [facility] Appearance CLEAR Clear [facility] Urine Specific >=1.030 1.003 - [facility] [place] 1.035 [facility] Urine pH 5.5 5.0 - 8.0 [facility] Urine Leukocyte Neg Neg [facility] Esterase [facility] Urine Nitrites Neg Neg [facility] Urine Protein Neg Neg-Trace [facility] mg/dL [facility] Urine Glucose Neg Neg mg/dL [facility] Urine Ketone Trace Neg mg/dL [facility] Microscopic Not Indicated [facility] Exam: [facility] LAB[facility]ATORY Comment: Please Note: A routine urine not reflexing to a micro scopic exam automatically means the dipstick blood t est is negative. Urine WBC's Not Indicated 0 - 8 /HPF [facility] LABOR[facility] Urine RBC's Not Indicated 0 - 3 /HPF [facility] Specimen Anatomical Collection Method Collection Time Receive d Time (Source) Location / / Volume Laterality 09/13/2013 10:32 09/13/2013 AM BED WORKER 10:40 AM BED WORKER Narrative [facility] - 09/13/2013 10:44 AM BED WORKER Specimen Source?->CVMS URINE Richardson Graham MD EC URINE ORDERABLES Performing Organization Address City/State/ZIP Code Phon e Number [facility] [address] [address] LABORATORY [facility] [address] [place] [address] LABORATORY documented in this encounter Visit Diagnoses Diagnosis Other malaise and fatigue - Primary Routine general medical examination at a health care facility Diabetes mellitus type II Type II or unspecified type diabetes sadia litus without mention of complication, not stated as uncontrolled ED (erectile dysfunction) Impotence of organic origin documented in this encounter Orders REFERRAL Count Last Ordered Date First Ordered Date APPT WITH [place] [address] 09/13/2013 documented in this encounter Care Teams Service Car Operator Relationship Specialty Start Date End Date Richardson Graham MD PCP - General Family Medicine 04/06/12 07/18/14[address] [address] documented as of this encounter
--- OUTSIDE RECORDS SUMMARY | 2022-09-20 12:28 | XMS_ITS | Encounter Summary ---
:1950 Author Organization [facility] [facility] Address [address] [address] Phone Care Team Providers Name Role Phone Richardson Graham MD Primary Care Provider Encounter Details Date Type Department Care Team Description 08/26/2013 Orders Only [facility] Richardson Graham, Renal ins ufficiency [facility] Claude YOUNG MD (Primary Dx) 2023 [facility] [address] [place] [address] [place] [phone] Social History Tobacco Use Types Packs/Day Years Used Date Smoking Tobacco: Never Smokeless Tobacco: Never Alcohol Use Standard Drinks/Week Comments No 0 (1 standard drink = 0.6 oz pure alcoho l) occasional Sex Assigned at Date Recorded Not on file documented as of this encounter Plan of Treatment Not on filedocumented as of this encounter Results (ABNORMAL) BASIC MET PROF (09/10/2013 4:48 PM WATERWAY TRAFFIC CHECKER) P athologist Signature SODIUM 142 134 - [address] [facility] mEq/L [facility] POTASSIUM 4.8 3.4 - 5.[address] [facility] mEq/L [facility] Chloride 108 99 - [address] [facility] mEq/L [facility] CO2 24 22 - [address] [facility] mEq/L [facility] BUN 22 5 - [address] [facility] mg/dL [facility] Creatinine 1.52 (H) 0.70 - [facility] 1.20 mg/dL [facility] GFR CALC 47 (A) [facility] Comment: GFR Normal: >60 mL/min/1.73 m2 Calcium 9.8 8.4 - 10.5 mg/dL [facility] LAB[facility] ANION GAP 10 3 - 15 [facility] GLUCOSE 113 (H) 70 - 99 mg/dL [facility] Comment: Current ADA criteria are ?Normal: 70-99 mg/dL ?Impaired Fasting Glucose: 100-125 mg/dL ?Diabetes Mellitus: at or above 126 mg/dL The diagnosis of diabetes must be confi rmed on a subsequent day by measuring FPG, 2-hr PG or random plasma glucose (if symptoms are present). Specimen Anatomical Collection Method Collection Time Receive d Time (Source) Location / / Volume Laterality 09/10/2013 4:48 PM 3 4:51 WATERWAY TRAFFIC CHECKER PM WATERWAY TRAFFIC CHECKER Richardson Graham MD EC CHEMISTRY ORDERABLES Performing Organization Address City/State/ZIP Code Phon e Number [facility] [address] [place], [place] [address] LABORATORY [place], [place] LABORATORY documented in this encounter Visit Diagnoses Diagnosis Renal insufficiency - Primary Unspecified disorder of kidney and urete r documented in this encounter Care Teams Window And Siding Craftsman Relationship Specialty Start Date End Date Richardson Graham MD PCP - General Family Medicine 04/06/12 07/18/14[address] [id number] documented as of this encounter
--- OUTSIDE RECORDS SUMMARY | 2022-09-20 12:28 | XMS_ITS | Encounter Summary ---
:1950 Author Organization [employer] Address [address] [address] Phone Care Team Providers Name Role Phone Richardson Graham MD Primary Care Provider Reason for Visit Reason Comments Diabetes labs drawn today/ pt due in Aug dr posada Blood Pressure last labs 11/25/ labs needed Other pt due for pe after 09/15/13 Encounter Details Date Type Department Care Team Description 07/13/2013 Office Visit [facility] Richardson Graham, Diabetes mellitus type II (Primary Dx); [facility] Essential hypertension, benign; MEDICINE [address] ED (erectile dysfunction); 2023 [facility] [place] [phone] Social History Tobacco Use Types Packs/Day Years Used Date Smoking Tobacco: Never Smokeless Tobacco: Never Alcohol Use Standard Drinks/Week Comments No 0 (1 standard drink = 0.6 oz pure alcoho l) occasional Sex Assigned at Date Recorded Not on file documented as of this encounter Last Filed Vital Signs Vital Sign Reading Time Taken Comments Blood Pressure 118/69 07/13/2013 1:51 PM CDT Pulse 52 07/13/2013 1:51 PM CDT Temperature - - Respiratory Rate 12 07/13/2013 1:51 PM CDT Oxygen Saturation - - Inhaled Oxygen Concentration - - Weight 109.3 kg (241 lb) 07/13/2013 1:51 PM CDT Height 180.3 cm (5' 11) 07/13/2013 1:51 PM CDT Body Mass Index 33.61 07/13/2013 1:51 PM CDT documented in this encounter Progress Notes Richardson Graham MD - 07/14/2013 3:06 PM CDT [facility] Patient Name: ALINE PABON Date of Service: 07/13/2013 : 1950 Age: 63Y Sex: M DC Site MRN: Patient Loc/Room #: [facility] FP/ Provider: Richardson Graham MD, Family Practice OFFICE NOTE SITE: [facility] PROBLEMS: 1. Diabetes. 2. ED. 3. Hypertension. 4. Renal insufficiency SUBJECTIVE: The patient is feeling well. He has been exercising regularly. He has been losing weight. He is feeling well. He has noticed a little issue with ED. He is wondering if testosterone level would help. I think this is worth doing. We did try to add it on and it would not work so we will add it with his next lab work. We note his kidney function has worsened with glomerular filtration rate dropping and his creatinine1.74. It had been 1.5, but 10/04/2011 two years ago was totally normal with 1.0 creatinine and on 11/18/2011 1.2. We talked about this. He is not on any medications. I suggested avoiding antiinflammatories other than 1 baby aspirin per day and it may be he is a little dry. We will recheck after he is back on a regular diet in 2 weeks. If it remains elevated then we are going to stop his metformin completely and recheck another 2 weeks. If it remains elevated we are going to have him see Nephrology. Diabetes. He is at goal for aspirin, nonsmoker, blood pressure, cholesterol is a little borderline at 107, A1c is excellent, if anything just a bit low. He has been running some lows. He is not longer using glyburide, but he is using metformin 1000 mg half tablet b.i.d. I suggested going to half once a day and see how he does and then probably come off of it completely. He is having yearly eye exams.No sores on his feet. Creatinine is up. This is of some concern. PFSH including medications updated in EHR. REVIEW OF SYSTEMS: Otherwise a 10-point review is all negative. EXAM: Alert and comfortable with current vitals showing blood pressure 118/69, pulse 52, respirations 12, weight 241 pounds in comparison that is down 26 pounds from last year and I congratulated him on an excellent job. That is why his numbers are looking so good. ASSESSMENT/PLAN: 1. Renal insufficiency, needs followup. See above plan. 2. Diabetes good control. His cholesterol is just a little above goal, but I think with the weight loss and what he is doing there is no need to change medication at this point. Currently not requiringany cholesterol medication. We will consider stopping the metformin completely. 3. ED. He has tried Cialis, Levitra, and Viagra without a lot of benefit. May then consider seeing Dr. Tovar for further evaluation. We will check a testosterone with his next lab. Richardson Graham MD [facility] cc: /RFM Job ID: [id number] /tlrts Document ID: [id number] Richardson Graham MD - 07/14/2013 8:03 AM CDT This note has been dictated. documented in this encounter Nursing Notes 07/13/2013 2:00 PM CDT >> JOSTIN MATTSON LPN [facility] Jul 01, 2013 3:12 PM This chart was prepped for visit by Jostin Mattson LPN on 07/01/2013. documented in this encounter Plan of Treatment Not on filedocumented as of this encounter Results TESTOST, TOT AND FREE (07/28/2013 7:50 AM CDT) athologist Signature Testosterone, 407 240 - 950 [facility] Total ng/dL FEED Comment: Testing performed by Liquid Chromatograp hy-Tandem Mass Spectrometry (LC-MS/MS). Test Performed by: [facility] [address] [place] [address] Occupational Therapist Rehab Manager: Darwin monahan III, M.D. Testosterone, Free 13 9 - 30 ng/dL [facility] INERD FEED Comment: Testing performed by Equilibrium Dialysi s. Test Performed by: [facility] [place] [address] Occupational Therapist Rehab Manager: Darwin monahan III, M.D. Specimen Anatomical Collection Method Collection Time Receive d Time (Source) Location / / Volume Laterality 07/28/2013 7:50 AM 3 CDT 10:48 AM CDT Richardson Graham MD EC LAB SEND OUT ORDERABLES Performing Organization Address City/State/ZIP Code Phon e Number [facility] BRAINERMio FEED (ABNORMAL) BASIC MET PROF (07/28/2013 7:50 AM CDT) athologist Signature SODIUM 142 134 - [facility] mEq/L [facility] POTASSIUM 4.4 3.4 - 5.[address] [facility] mEq/L [facility] Chloride 107 99 - [address] [facility] mEq/L [facility] CO2 23 22 - [address] [facility] mEq/L [facility] BUN 21 5 - [address] [facility] mg/dL [facility] Creatinine 1.65 (H) 0.70 - [facility] 1.20 mg/dL [facility] GFR CALC 42 (A) [facility] Comment: GFR Normal: >60 mL/min/1.73 m2 Calcium 9.8 8.4 - 10.5 mg/dL [facility]. [facility] ANION GAP 12 3 - 15 [facility] GLUCOSE 144 (H) 70 - 99 mg/dL [facility]. [facility] Comment: Current ADA criteria are ?Normal: 70-99 mg/dL ?Impaired Fasting Glucose: 100-125 mg/dL ?Diabetes Mellitus: at or above 126 mg/dL The diagnosis of diabetes must be confi rmed on a subsequent day by measuring FPG, 2-hr PG or random plasma glucose (if symptoms are present). Specimen Anatomical Collection Method Collection Time Receive d Time (Source) Location / / Volume Laterality 07/28/2013 7:50 AM 3 7:50 CDT AM CDT Richardson Graham MD EC CHEMISTRY ORDERABLES Performing Organization Address [facility]/ZIP [facility] Phon e Number [facility] [address] [place] [address] LABORATORY [place], [place] LABORATORY MICROALB,RANDOM (07/13/2013 1:30 PM CDT) Analysis Performed At Patho logist Time Signature Urine 2.4 mg/dL [facility] URINE CREATININE 334.2 mg/dL [facility] Urine 7 0 - 29 [facility] Microalbumin/[facility] tinine Ratio LABORATORY Specimen Anatomical Collection Method Collection Time Receive d Time (Source) Location / / Volume Laterality 07/13/2013 1:30 PM 3 1:35 CDT PM CDT Narrative [facility] - 07/13/2013 2:00 PM CDT Patient education was completed by verbal explanation or instructional brochure given to patient. ??Patient richard balized understanding. Richardson Graham MD EC URINE ORDERABLES Performing Organization Address [facility] Phon e Number [facility] [address] [address] LABORATORY [facility] [address] [place] [address] LABORATORY documented in this encounter Visit Diagnoses Diagnosis Diabetes mellitus type II - Primary Type II or unspecified type diabetes sadia litus without mention of complication, not stated as uncontrolled Essential hypertension, benign ED (erectile dysfunction) Impotence of organic origin Renal insufficiency Unspecified disorder of kidney and urete r documented in this encounter Discontinued Medications Medication Sig Discontinue Reason Start Date End Date vardenafil (LEVITRA) Take 1 Tab by mouth Prescription not 2 07/13/2013 20 MG tablet one time a day as filled/refilled needed for Erectile dysfunction. metFORMIN (GLUCOPHAGE) TAKE ONE TABLET BY Adjustment of dose 201207/13/2013 1000 MG tablet MOUTH TWICE DAILY guaiFENesin - codeine Take 10 mL by mouth Prescription not 10/26/19 13 07/13/2013 (GUAIFENESIN-CODEINE) three times a day filled/refilled 100-10 MG/5ML as needed for syrupIndications: URI Cough. (upper respiratory infection) glyBURIDE (DIABETA) 5 TAKE ONE TABLET BY Prescription not 3 07/13/2013 MG tablet MOUTH IN THE filled/refilled MORNING WITH BREAKFAST glyBURIDE (DIABETA) 5 Takes 1 tab if Adjustment of dose 07/13/2013 07/13/2013 MG tablet blood sugars over 110 metFORMIN (GLUCOPHAGE) 500mg BID if blood Adjustment of dose 201207/13/2013 500 MG tablet sugar above 100 then add 1 more 500mg tab documented as of this encounter Historical Medications This list may reflect changes made after this encounter. Medication Sig Dispensed Refills Start Date End Date metFORMIN (GLUCOPHAGE) Take 0.5 Tabs by 0 013 12/20/2013 1000 MG tablet mouth one time a day. Take with food. glyBURIDE (DIABETA) 5 MG Takes 1 tab if blood 60 Tab 3 1 07/13/2013 tablet sugars over 110 metFORMIN (GLUCOPHAGE) 500mg BID if blood 120 Tab 3 07/1307/13/2013 500 MG tablet sugar above 100 then add 1 more 500mg tab added in this encounter Care Teams Contact [employer]inter [employer] Relationship Specialty Start Date End Date Richardson Graham MD PCP - General Family Medicine 04/06/12 07/18/14[address] [address] documented as of this encounter
--- OUTSIDE RECORDS SUMMARY | 2022-09-20 12:28 | XMS_ITS | Encounter Summary ---
:1950 Author Organization [employer] Address [address] [address] Phone Care Team Providers Name Role Phone Richardson Arroyo MD Primary Care Provider Reason for Visit Auth/Cert - Closed Specialty Diagnoses / Procedures Referred By Contact Refer red To Contact Diagnoses dysphagia, screening [facility] Endoscopy Procedures COLONOSCOPY, DIAGNOSTIC- [address] [place] [address] [place] [address] Referral ID Status Reason Start Date Expiration Date Visits Requ ested Visits Authorized [id number] Closed 1 1 Encounter Details Date Type Department Care Team Description 10/08/2012 Surgery [facility] Blair Hollingsworth MD COLONOSCOPY DIAGNOSTIC [facility] [address] [place] [address] [place] [id number] (Wo rk) Surgery Details Date/Time Status Location OR Service Patient Case Case Traum a Class Class Type Case? 10/08/12 Posted [facility] Gastroenterology Procedure 9:30 AM [facility] Non-Surgica ENDOSCOPY l Panel 1 Procedure [facility] Anes Op Region Wound Class Commen ts COLONOSCOPY DIAGNOSTIC N/A TONYA Clean Contami nated ESOPHAGOGASTRODUODENOSCOPY DIAGNOSTIC N/A TONYA Clean Contaminated Surgeon Surgeon Role Service Panel Blair Hollingsworth MD Primary Gastroenterology 1 Case Notes pcp and ordering dr richardson arroyo documented in this encounter Social History Tobacco Use Types Packs/Day Years Used Date Smoking Tobacco: Never Smokeless Tobacco: Never Alcohol Use Standard Drinks/Week Comments No 0 (1 standard drink = 0.6 oz pure alcoho l) occasional Sex Assigned at Date Recorded Not on file documented as of this encounter Last Filed Vital Signs Vital Sign Reading Time Taken Comments Blood Pressure 123/86 10/08/2012 10:19 AM MANAGER INTERNAL Pulse 63 10/08/2012 10:19 AM MANAGER INTERNAL Temperature 35.7 ??C (96.2 ??F) 10/08/2012 8:48 AM MANAGER INTERNAL Respiratory Rate 16 10/08/2012 10:19 AM MANAGER INTERNAL Oxygen Saturation 93% 10/08/2012 10:19 AM MANAGER INTERNAL Inhaled Oxygen Concentration - - Weight - - Height 177.8 cm (5' 10) 10/08/2012 8:48 AM MANAGER INTERNAL Body Mass Index - - documented in this encounter Discharge Instructions Discharge InstructionsBlair Hollingsworth MD - 10/08/2012 9:46 AM CST Biopsies (tissue sampling) of your esophagus were performed to evaluate for the condition of eosinophilic esophagitis. A letter will be sent to your mailing address in 10-14 days with the results. If the biopsies are consistent with eosinophilic esophagitis you should consider an appoint with me to discuss treatment options. Your colon appeared normal with no polyps found. In the absence of any symptoms or signs of concern, your next colonoscopy would not be necessary for 10 years. Thank you for allowing me to participate in your care. Blair Hollingsworth M.D. GER INTERNAL documented in this encounter Medications at Time of Discharge Medication Sig Dispensed Refills Start Date End Date Zinc 50 MG TABS Take 1 Tab by mouth as 30 Tab 0 09/17/20 11 needed. CHILDRENS ASPIRIN 81 MG 81 mg, ORAL, DAILY, 81.000 0 chewable tablet Refills: 0, 02/06/09 18:34:01, Substitution Permitted, current med (Hx) multivitamin 1 tablet, ORAL, DAILY, 1.000 Tab 0 2009 (TAB-A-LISA) TABS Refills: 0, 02/06/09 18:34:57, Substitution Permitted, current med (Hx) documented as of this encounter Discharge Disposition Disposition Code Departure Means Destination Comments Home and/or Self [facility] to vehicle with staff to home w ith documented in this encounter Progress Notes Blair Hollingsworth MD - 10/15/2012 10:02 AM CST GER INTERNAL Blair Hollingsworth MD - 10/15/2012 10:01 AM CST GER INTERNAL documented in this encounter Procedure Notes Blair Hollingsworth MD - 10/09/2012 1:49 PM CSTAssociated Order(s): COLONOSCOPY,SCREEN PREV [facility] Patient Name: ALINE PABON Date of Service: 10/08/2012 : 1950 Age: 62Y Sex: M DC Site MRN: Patient Loc/Room #: [facility]/ Provider: Blair Hollingsworth MD, Gastroenterology GI PROCEDURE SITE: [facility] ORDERED BY: ADDENDUM PROCEDURE: Endoscopy Review of histology report identified the esophageal biopsies documented no evidence of eosinophilicesophagitis changes. Blair Hollingsworth MD [facility] Gastroenterology cc: Aline Arroyo MD /JCB Job ID: [id number] /mb Document ID: [id number] GER INTERNAL Blair Hollingsworth MD - 10/08/2012 11:21 AM CSTAssociated Order(s): COLONOSCOPY,SCREEN PREV [facility] Patient Name: ALINE PABON Date of Service: 10/08/2012 : 1950 Age: 62Y Sex: M DC Site MRN: Patient Loc/Room #: [facility]/ Provider: Blair Hollingsworth MD, Gastroenterology GI PROCEDURE SITE: [facility] ORDERED BY: DATE OF PROCEDURE: 10/08/2012 Colonoscopy and endoscopy with biopsy. PRIMARY CARE PHYSICIAN: Richardson Arroyo MD INDICATIONS: Odynophagia and dysphagia complaints. Colon carcinoma screening. History of intermittent episodes of a sense of food bolus obstruction mid- retrosternal area with pain with swallowing of more water, but spontaneous resolution. MEDICATIONS: Versed 5 mg and Fentanyl 100 mcg slow IV push preprocedure. PROCEDURE: After informed consent was obtained to include discussion of indications, risks, inclusive, but not limited to missed lesions, pain, infection, perforation, hemorrhage, benefits, and alternatives, the patient underwent endoscopy examination with biopsy followed by colonoscopy examination. Olympus endoscope was advanced through the oropharynx into the esophagus under direct visualization.Continued advancement under direct visualization through the esophageal lumen was performed. No endoscopic abnormalities of the esophagus were evident. No extrinsic or intrinsic compression effects upon the esophagus were evident. Advancement into the gastric lumen after transit through a normal-appearing esophageal gastric junction at 40 cm from the incisors was performed. Antegrade and retroflex views of the antrum, body, cardia, and fundus of the stomach were performed. No abnormalities were noted. Advancement through the pylorus into the duodenum was performed. The first and second portion of the duodenum were inspected and were unremarkable. Withdrawal back into the mid- esophagus was performed. Biopsies were obtained to assess for eosinophilic esophagitis. Once again no abnormalities of the mucosa or intrinsic or extrinsic compression effects were appreciated. Endoscope was removed and the patient underwent colonoscopy examination. The Olympus variable stiffness colonoscope was advanced through the anus into the rectal vault underblind intubation, where direct visualization was utilized to advance through a well-prepped colon tothe cecal base. Cecal anatomy to include the appendiceal orifice and ileocecal valve were identified. Mucosal inspection from the cecal base to the dentate line was performed. No abnormalities were noted throughout the examination. A single diverticulum involving the hepatic flexure region was noted to be present. Retroflexion in the rectal vault revealed small internal hemorrhoids. The procedure was terminated and the patient recovered. ASSESSMENT: 1. Normal endoscopic evaluation of the upper GI tract with biopsies obtained to assess for eosinophilic esophagitis. 2. Normal colonoscopy examination with incidental single diverticulum at the hepatic flexure and small internal hemorrhoids. PLAN: I will forward this information as well as the biopsy results on to Dr. Arroyo and the patient upon completion. POST-CONSCIOUS SEDATION/ANESTHESIA NOTE: The patient was monitored post IV conscious sedation with continuous EKG and pulse monitoring as well as periodic blood pressure monitoring. Upon the patient regaining an alert level of sustained consciousness and the continuous O2 saturation and blood pressure monitoring confirming recovery from the anesthetic effect of the intravenous medications, the patient was discharged in the care of an adult attendant. Guidelines for immediate medical attention post procedure were given to the patient in a verbal and written format. Blair Hollingsworth MD [facility] Gastroenterology cc: MD Aline Vyas /JCDang Job ID: [id number] / Document ID: [id number] GER INTERNAL documented in this encounter Plan of Treatment Not on filedocumented as of this encounter Procedures Procedure Name Priority Date/Time Associated Comments Diagnosis PATHOLOGY SPEC 10/08/2012 9:40 Results fo r AM MANAGER INTERNAL this procedure are in the results section. ESOPHAGOGASTRODUODENOSCOPY 10/08/2012 9:17 dysphagia, DIAGNOSTIC AM MANAGER INTERNAL screening Case Notes pcp and ordering dr richardson ulrich COLONOSCOPY DIAGNOSTIC 10/08/2012 9:17 AM MANAGER INTERNAL dysphagi a, screening Case Notes pcp and ordering dr richardson ulrich COLONOSCOPY,SCREEN PREV Routine 10/08/2012 12:00 Special scree driss Results for this AM MANAGER INTERNAL for malignant procedure are in neoplasms, colon the results section. documented in this encounter Results PATHOLOGY SPEC (10/08/2012 9:40 AM MANAGER INTERNAL) Component Value Ref Test Analysis Performed At [facility] Method Time Signature PATHOLOGY ?Report Also To: RICHARDSON ARROYO MD [facility] SPEC LABORATORY SPECIMEN SOURCE ESOPHAGEAL BX CLINICAL INFORMATION R/O EOSINOPHILIC ESOPHAGITIS, DYSPHAGIA, SCREENING MACROSCOPIC The specimen is received in formalin, labeled with the patie nt's name, medical record number, and designated esophagus biopsy R/O eosinophilic esophagitis. ?? It consists of multiple fragme nts of soft flynn tissue that measure 0.2 cm in greatest dimension each. ? ?They are placed on a tissue sponge and entirely submitted in one chad ette. DMK1/LLG MICROSCOPIC Squamous mucosa is seen. ??There are predominantly occasiona l intraepithelial lymphocytes seen. ??In one focal area there are some intraepithelial eosinophils. ??In this one high power field they are approximately 10-15 per high power field, but are devoid in other areas. ??In the context of intraepithelial lymphocytes plus eosinophils this most likely represents reflux esophagitis. ??It is not specific for eosinophilic esophagitis, however since eosinophils are foca lly present it is not possible to exclude this entity. ??Clinical correl ation is suggested. DIAGNOSIS Esophagus, biopsy: ??Squamous mucosa with occasional intraep ithelial lymphocytes and rare intraepithelial eosinophils. ??See micr oscopic description. PATHOLOGIST: ??TYESHA URIOSTEGUI MD Electronically Signed: ??10/09/2012 11:28 Specimen Anatomical Collection Method Collection Time Receive d Time (Source) Location / / Volume Laterality 10/08/2012 9:40 AM 2 MANAGER INTERNAL 11:21 AM MANAGER INTERNAL Blair Hollingsworth MD EC PATHOLOGY ORDERABLES Performing Organization Address City/State/ZIP Code Phon e Number [facility] LABORATORY COLONOSCOPY,SCREEN PREV (10/08/2012 12:00 AM MANAGER INTERNAL) Specimen (Source) Anatomical Location Collection Method / Collectio n Time Received Time / Laterality Volume 10/08/2012 Transcriptions Blair Hollingsworth MD - 10/08/2012 11:[address] [facility] Patient Name: ALINE PABON Date of Service: 10/08/2012 : [birth year] Age: 62Y Sex: M DC Site MRN: Patient Loc/Room #: [facility]/ Provider: Blair Hollingsworth MD, Gastroentero logy GI PROCEDURE SITE: [facility] ORDERED BY: DATE OF PROCEDURE: 10/08/2012 Colonoscopy and endoscopy with biopsy. PRIMARY CARE PHYSICIAN: Richardson Arroyo MD INDICATIONS: Odynophagia and dysphagia c omplaints. Colon carcinoma screening. History of intermittent episodes of a sense of food bolus obstruction mid- retrosternal area with pain with swallowing of more water, but spontaneous resolution. MEDICATIONS: Versed 5 mg and Fentanyl 10 0 mcg slow IV push preprocedure. PROCEDURE: After informed consent was ob tained to include discussion of indications, risks, inclusive, but not limited to missed lesions, pain, infection, perforation, hemorrhage, benefits, and alternatives, the patient underwent endoscopy examination with biopsy followed by colonoscopy examination. Olympus endoscope was advanced through t he oropharynx into the esophagus under direct visualization. Continued advancement under direct visualization through the esophageal lumen was performed. No endoscopic abnormalities of the esophagus were evid ent. No extrinsic or intrinsic compression effects upon the esophagus were evident. Advancement into the gastric lumen after transit through a normal-appearing esophageal gastric junction at 40 cm from the incisors was performed. Antegrade and retroflex views of the antrum, body, cardia, and fundus of the stomach were performed. No abnormalities were noted. Advancement through the pylorus into the duodenum was performed. The fir st and second portion of the duodenum were inspected and were unremarkable. Withdrawal back into the mid-esophagus was performed. Biopsies were obtained to assess for eosinophilic esophagitis. Once again no abnormalities of the mucosa or intrinsic or extrinsic compression effects were appreciated. Endoscope was removed and the patient underwent colonoscopy examination. The Olympus variable stiffness colonosco pe was advanced through the anus into the rectal vault under blind intubation, where direct visualization was utilized to advance through a well-prepped colon to the cecal base. Cecal anatomy to include the appendiceal orifice and ileocecal valve were identified. Mucosal inspection from the cecal base to the dentate line was performed. No abnormalities were noted throughout the examination. A single diverticulum involving the hepati c flexure region was noted to be present. Retroflexion in the rectal vault revealed small internal hemorrhoids. The procedure was terminated and the patient recovered. ASSESSMENT: 1. Normal endoscopic evaluation of the u pper GI tract with biopsies obtained to assess for eosinophilic esophagitis. 2. Normal colonoscopy examination with i ncidental single diverticulum at the hepatic flexure and small internal hemorrhoids. PLAN: I will forward this information as well as the biopsy results on to Dr. Arroyo and the patient upon completion. POST-CONSCIOUS SEDATION/ANESTHESIA NOTE: The patient was monitored post IV consci ous sedation with continuous EKG and pulse monitoring as well as periodic blood pressure monitoring. Upon the patient regaining an alert level of sustained consciousness and the continuous O2 saturation and blood press ure monitoring confirming recovery from the anesthetic effect of the intravenous medications, the patient was discharged in the care of an adult attendant. Guidelines for immediate medical attenti on post procedure were given to the patient in a verbal and written format. Blair Hollingsworth MD [facility] Gastroenterology cc: MD Aline Vyas /JCB Job ID: [id number] / Document ID: [id number] Blair Hollingsworth MD - 10/09/2012 1:49 PM CS T [facility] Patient Name: ALINE PABON Date of Service: 10/08/2012 : [birth year] Age: 62Y Sex: M DC Site MRN: Patient Loc/Room #: [facility]/ Provider: Blair Hollingsworth MD, Gastroentero logy GI PROCEDURE SITE: [facility] ORDERED BY: ADDENDUM PROCEDURE: Endoscopy Review of histology report identified th e esophageal biopsies documented no evidence of eosinophilic esophagitis changes. Blair Hollingsworth MD [facility] Gastroenterology cc: Aline Arroyo MD /JCDang Job ID: [id number] /mb Document ID: [id number] Richardson Arroyo MD EC PROCEDURES documented in this encounter Visit Diagnoses Not on filedocumented in this encounter Administered Medications Inactive Administered Medications Medication Order MAR Action Action Date Dose Rate Site fentaNYL (SUBLIMAZE) injection Given 10/08/2012 9:27 AM MANAGER INTERNAL 100 mcg NEEDED, Starting on Crista 10/08/12 at 0927, Until Crista 10/08/12 at 1434, Pain midazolam (VERSED) injection Given 10/08/2012 9:27 AM MANAGER INTERNAL 5 mg NEEDED, Starting on Crista 10/08/12 at 0927, Until Crista 10/08/12 at 1434, Sedation documented in this encounter Discontinued Medications Medication Sig Discontinue Reason Start Date End Date ranitidine (ZANTAC) 150 Take 1 Tab by Deleted via home med 09/15/20 12 10/08/2012 MG tabletIndications: mouth two times a review Acute pancreatitis day. documented as of this encounter Active and Recently Administered Medications Times are shown in MANAGER INTERNAL. PRN Medication Order 10/06/2012 10/07/2012 10/08/2012 fentaNYL (SUBLIMAZE) injection (CANCELED) 09 (Given - Provider: Blair Hollingsworth MD)1000 (Due) NEEDED, Starting Crista 10/08/12 at 0927, Until Discontinued, Pa in midazolam (VERSED) injection (CANCELED) 926 (Given - Provider: Blair Hollingsworth MD)1000 (Due) NEEDED, Starting Crista 10/08/12 at 0927, Until Discontinued, Se dation documented in this encounter Care Teams Sheriff Sergeant Relationship Specialty Start Date End Date Richardson Arroyo MD PCP - General Family Medicine 04/06/12 07/18/14[address] [address] documented as of this encounter
--- OUTSIDE RECORDS SUMMARY | 2022-09-20 12:28 | XMS_ITS | Encounter Summary ---
:1950 Author Organization [employer] Address [address] [address] Phone Care Team Providers Name Role Phone Richardson Arroyo MD Primary Care Provider Reason for Visit Auth/Cert - Closed Specialty Diagnoses / Procedures Referred By Contact Refer red To Contact Diagnoses dysphagia, screening [facility] Endoscopy Procedures COLONOSCOPY, DIAGNOSTIC- [address] [place] [address] [place] [address] Referral ID Status Reason Start Date Expiration Date Visits Requ ested Visits Authorized [id number] Closed 1 1 Encounter Details Date Type Department Care Team Description 10/08/2012 Hospital Encounter [place]ónic[place]ris Darrick Blair Raul, Special screening for malignant neoplasms, colon; [facility] Dysphagia Endoscopy 2023 [facility] [address] [place] [address] [place] [address] LUCERO ELIAS [phone] [id number] Social History Tobacco Use Types Packs/Day Years Used Date Smoking Tobacco: Never Smokeless Tobacco: Never Alcohol Use Standard Drinks/Week Comments No 0 (1 standard drink = 0.6 oz pure alcoho l) occasional Sex Assigned at Date Recorded Not on file documented as of this encounter Last Filed Vital Signs Vital Sign Reading Time Taken Comments Blood Pressure 123/86 10/08/2012 10:19 AM TRANSMITTER TESTER Pulse 63 10/08/2012 10:19 AM TRANSMITTER TESTER Temperature 35.7 ??C (96.2 ??F) 10/08/2012 8:48 AM TRANSMITTER TESTER Respiratory Rate 16 10/08/2012 10:19 AM TRANSMITTER TESTER Oxygen Saturation 93% 10/08/2012 10:19 AM TRANSMITTER TESTER Inhaled Oxygen Concentration - - Weight - - Height 177.8 cm (5' 10) 10/08/2012 8:48 AM TRANSMITTER TESTER Body Mass Index - - documented in [...] participate in your care. Blair Hollingsworth M.D. SMITTER TESTER documented in this encounter Medications at Time [...] Departure Means Destination Comments Home and/or Self Long-Term Ambula valdemar to vehicle with staff to home w ith documented in this encounter Progress Notes Blair Hollingsworth MD - 10/15/2012 10:02 AM CST SMITTER TESTER Blair Hollingsworth MD - 10/15/2012 10:01 AM CST SMITTER TESTER documented in this encounter Procedure Notes Blair Hollingsworth MD - 10/09/2012 1:49 PM CSTAssociated Order(s): COLONOSCOPY,SCREEN PREV [facility] Patient Name: ALINE PABON Date of Service: 10/08/2012 : 1950 Age: 62Y Sex: M DC Site MRN: Patient Loc/Room #: [facility]/ Provider: Blair Hollingsworth MD, Gastroenterology GI PROCEDURE SITE: [facility] ORDERED BY: ADDENDUM PROCEDURE: Endoscopy Review of histology report identified the esophageal biopsies documented no evidence of eosinophilicesophagitis changes. Blair Hollingsworth MD [facility] [place][note 2] Gastroenterology cc: Aline Arroyo MD /JCB Job ID: [id number] /[id number] Document ID: [id number] SMITTER TESTER Blair Hollingsworth MD - 10/08/2012 11:21 AM CSTAssociated Order(s): COLONOSCOPY,SCREEN PREV [facility] Patient Name: ALINE PABON Date of Service: 10/08/2012 : 1950 Age: 62Y Sex: M DC Site MRN: Patient Loc/Room #: [facility]/ Provider: Blair Hollingsworth MD, Gastroenterology GI PROCEDURE SITE: [facility] ORDERED BY: DATE OF PROCEDURE: 10/08/2012 [...] verbal and written format. Blair Hollingsworth MD [facility] [place][note 2] Gastroenterology cc: MD Aline Vyas /JCDang Job ID: [id number] / Document ID: [id number] SMITTER TESTER documented in this encounter Plan of Treatment Not on filedocumented as of this encounter Procedures Procedure Name Priority Date/Time Associated Comments Diagnosis PATHOLOGY SPEC 10/08/2012 9:40 Results fo r AM TRANSMITTER TESTER this procedure are in the results section. ESOPHAGOGASTRODUODENOSCOPY 10/08/2012 9:17 dysphagia, DIAGNOSTIC AM TRANSMITTER TESTER screening Case Notes pcp and ordering dr irchardson ulrich COLONOSCOPY DIAGNOSTIC 10/08/2012 9:17 AM TRANSMITTER TESTER dysphagi a, screening Case Notes pcp and ordering dr richardson ulrich COLONOSCOPY,SCREEN PREV Routine 10/08/2012 12:00 Special scree driss Results for this AM TRANSMITTER TESTER for malignant procedure are in neoplasms, colon the results section. documented in this encounter Results PATHOLOGY SPEC (10/08/2012 9:40 AM TRANSMITTER TESTER) Component Value Ref Test Analysis Performed At [facility] Range Method Time Signature PATHOLOGY ?Report Also To: RICHARDSON ARROYO MD [facility] SPEC LABORATORY SPECIMEN SOURCE ESOPHAGEAL BX [...] / Volume Laterality 10/08/2012 9:40 AM 2 TRANSMITTER TESTER 11:21 AM TRANSMITTER TESTER Blair Hollingsworth MD EC PATHOLOGY ORDERABLES Performing Organization Address City/State/ZIP Code Phon e Number [facility] COLONOSCOPY,SCREEN PREV (10/08/2012 12:00 AM TRANSMITTER TESTER) Specimen (Source) Anatomical Location Collection Method / Collectio n Time Received Time / Laterality Volume 10/08/2012 Transcriptions Blair Hollingsworth MD - 10/08/2012 11:[address] [facility] Patient Name: ALINE PABON Date of Service: 10/08/2012 : [birth year] Age: 62Y Sex: M DC Site MRN: Patient Loc/Room #: [facility]/ Provider: Blair Hollingsworth MD, Gastroentero logy GI PROCEDURE SITE: [facility] ORDERED BY: DATE OF PROCEDURE: 10/08/2012 [...] verbal and written format. Blair Hollingsworth MD [facility] [place][note 2] Gastroenterology cc: MD Aline Vyas /IRMA Job ID: [id number] / Document ID: [id number] Blair Hollingsworth MD - 10/09/2012 1:49 PM CS T [facility] Patient Name: ALINE PABON Date of Service: 10/08/2012 : [birth year] Age: 62Y Sex: M DC Site MRN: Patient Loc/Room #: [facility]/ Provider: Blair Hollingsworth MD, Gastroentero logy GI PROCEDURE SITE: [facility] ORDERED BY: ADDENDUM PROCEDURE: Endoscopy Review of histology report identified th e esophageal biopsies documented no evidence of eosinophilic esophagitis changes. Blair Hollingsworth MD [facility] [place][note 2] Gastroenterology cc: Aline Pepper Arroyo MD /JCB Job ID: [id number] /[id number] Document ID: [id number] Richardson Arroyo MD EC PROCEDURES documented in this encounter Visit Diagnoses Diagnosis Special screening for malignant neoplasm s, colon Dysphagia Dysphagia, unspecified documented in this encounter Discontinued Medications Medication Sig Discontinue Reason Start Date End Date ranitidine (ZANTAC) 150 Take 1 Tab by Deleted via home med 09/15/20 12 10/08/2012 MG tabletIndications: mouth two times a review Acute pancreatitis day. documented as of this encounter Active and Recently Administered Medications Times are shown in TRANSMITTER TESTER. PRN Medication Order 10/06/2012 10/07/2012 10/08/2012 fentaNYL (SUBLIMAZE) injection (CANCELED) 926 (Given - Provider: Blair Hollingsworth MD)1000 (Due) NEEDED, Starting Crista 10/08/12 at 0927, Until Discontinued, Pa in midazolam (VERSED) injection (CANCELED) 926 (Given - Provider: Blair Hollingsworth MD)1000 (Due) NEEDED, Starting Crista 10/08/12 at 0927, Until Discontinued, Se dation documented in this encounter Orders Medications Ordered That Might Not Have Count Last Ord ered Date First Ordered Date Been Administered fentaNYL (SUBLIMAZE) injection 1 10/08/2012 midazolam (VERSED) injection 1 10/08/2012 documented in this encounter Care Teams Basket Weaver Relationship Specialty Start Date End Date Richardson Arroyo MD PCP - General Family Medicine 04/06/12 07/18/14[address] [address] documented as of this encounter
--- OUTSIDE RECORDS SUMMARY | 2022-09-20 12:28 | XMS_ITS | Encounter Summary ---
:1950 Author Organization [employer] Address [address] [address] Phone Care Team Providers Name Role Phone Richardson Graham MD Primary Care Provider Reason for Visit Reason Onset Date Comments Appointment 02/21/2014 high blood sugar Encounter Details Date Type Department Care Team Description 02/21/2014 Telephone [facility] Jocelin Castro Appoi ntment ([facility] FAMILY MEDICI HECTOR Lott RN blood sugar) 2023 [place] [address] Social History Tobacco Use Types Packs/Day Years Used Date Smoking Tobacco: Never Smokeless Tobacco: Never Alcohol Use Standard Drinks/Week Comments No 0 (1 standard drink = 0.6 oz pure alcoho l) occasional Sex Assigned at Date Recorded Not on file documented as of this encounter Miscellaneous Notes Telephone Encounter - Jocelin Castro CMA - 02/21/2014 2:25 PM CDT Pt called asking for an appointment haley to follow up on high blood sugars, got patient in to see Brenda Vang February 24 at 8:00 Telephone Encounter - Jocelin Castro CMA - 02/21/2014 2:25 PM CDT Message copied by JOCELIN CASTRO on FriFebruary 21, 2014 2:25 PM ------ Message from: MARY TIAN: FriFebruary 21, 2014 8:10 AM Contact: self Gladys Pts blood sugars have been very high, pt wants to come in pt adjust his Metformin. No opeinings until mid March. Pt thinks he needs to be seen haley. Please call pt at work number. Thank you, [phone] ------ Telephone Encounter - Jocelin Castro CMA - 02/21/2014 9:02 AM CDT Message copied by JOCELIN CASTRO on FriFebruary 21, 2014 9:02 AM ------ Message from: MARY TIAN Created: FriFebruary 21, 2014 8:10 AM Contact: self Gladys Pts blood sugars have been very high, pt wants to come in pt adjust his Metformin. No opeinings until mid March. Pt thinks he needs to be seen haley. Please call pt at work number. Thank you, [phone] ------ documented in this encounter Plan of Treatment Not on filedocumented as of this encounter Visit Diagnoses Not on filedocumented in this encounter Care Teams Test Case Developer Relationship Specialty Start Date End Date Richardson Graham MD PCP - General Family Medicine 04/06/12 07/18/14[address] [address] documented as of this encounter
--- OUTSIDE RECORDS SUMMARY | 2022-09-20 12:28 | XMS_ITS | Encounter Summary ---
:1950 Author Organization [employer] Address [address] [address] Phone Care Team Providers Name Role Phone Richardson Graham MD Primary Care Provider Reason for Visit Reason Comments Refill Request Encounter Details Date Type Department Care Team Description 03/09/2013 Refill [facility] Olivia Graham MD Refill Request FAMILY MEDICINE [address] [facility] [place] [address] [place] [address] [phone] Social History Tobacco Use Types Packs/Day Years [...] TAKE ONE TABLET BY MOUTH 6 Tab 6 03/28/2014 NEEDED documented in this encounter Plan of Treatment Not on filedocumented as of this encounter Visit Diagnoses Not on filedocumented in this encounter Care Teams Case Mgr Relationship Specialty Start Date End Date Richardson Graham MD PCP - General Family Medicine 04/06/12 07/18/14[address] [place] [address] documented as of this encounter
--- OUTSIDE RECORDS SUMMARY | 2022-09-20 12:28 | XMS_ITS | Encounter Summary ---
:1950 Author Organization [employer] Address [address] [address] Phone Care Team Providers Name Role Phone Richardson Graham MD Primary Care Provider Reason for Visit Reason Comments Consult New Patient ED? Encounter Details Date Type Department Care Team Description 03/04/2014 Office Visit [facility] QualFelice gage, Nocturia (Primary Dx); [address] [facility] ED (erectile dysfunction) LUC[place] ELIAS [id number] 2023 [facility] [phone] [place] [address] Social History Tobacco Use Types Packs/Day Years Used Date Smoking Tobacco: Never Smokeless Tobacco: Never Alcohol Use Standard Drinks/Week Comments No 0 (1 standard drink = 0.6 oz pure alcoho l) occasional Sex Assigned at Date Recorded Not on file documented as of this encounter Last Filed Vital Signs Vital Sign Reading Time Taken Comments Blood Pressure 119/70 03/04/2014 8:12 AM CDT Pulse 60 03/04/2014 8:12 AM CDT Temperature - - Respiratory Rate - - Oxygen Saturation - - Inhaled Oxygen Concentration - - Weight 111.1 kg (245 lb) 03/04/2014 8:12 AM CDT stated Height 177.8 cm (5' 10) 03/04/2014 8:12 AM CDT stated Body Mass Index 35.15 03/04/2014 8:12 AM CDT documented in this encounter Patient Instructions Patient InstructionsQuFelcie singh MD - 03/04/2014 8:55 AM CDT Await PSa and testosterone. Consider penile injection therapy. documented in this encounter Progress Notes Felice Tovar MD - 03/07/2014 1:59 PM CDT This note has been dictated. documented in this encounter Consult Notes Felice Tovar MD - 03/09/2014 8:27 AM CDT [facility] Patient Name: ALINE PABON Date of Service: 03/04/2014 : 1950 Age: 64Y Sex: M DC Site MRN: Patient Loc/Room #: [facility]/ Provider: Felice Tovar MD, Urology CONSULTATION SITE: [facility] REQUESTED BY: Richardson Graham MD REASON FOR CONSULTATION: Erectile dysfunction. SUBJECTIVE: Aline Pabon is a pleasant 64-year-old with chief complaint of erectile dysfunction. He has been using Cialis 20 mg with minimal benefit. He reports his erections decrease the rigidity and do not last as long as he would like. Moreover, his energy level has been low. He recently had a testosterone level of 207, but previous one was over 400. Will recheck another one today. He had taken Viagra for 7 or 8 years. We had a good discussion regarding testosterone replacement. REVIEW OF SYSTEMS: He has had malaise and fatigue, decreased his metformin. He has history of type 2diabetes, renal insufficiency with most recent creatinine 1.56 on 02/25. Respiratory - negative. GI - normal bowel movements, as above. Voiding symptoms consist of minimal nocturia x1, occasional urgency. Overall he has mild lower urinary tract symptoms. 12-point review of systems otherwise negative. SOCIAL HISTORY: He is a nonsmoker. 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 He just drinks one alcoholic beverage a week. FAMILY HISTORY: Positive for father and brother having had prostate cancer. PERSONAL PAST MEDICAL HISTORY: 2 prior knee surgeries and hospitalization in 2010 for pancreatitis. ALLERGIES: PENICILLIN, ADHESIVE TAPE. PHYSICAL EXAMINATION: Constitutional - blood pressure 119/70, pulse 60. Appears pleasant, alert, in no acute distress. HEENT - unremarkable. Abdomen - soft and benign. Penis and scrotal contents normal. Prostate 1+, smooth, symmetric, anodular. Normal rectal tone. Extremities - negative. IMPRESSION: Erectile dysfunction likely secondary to neurovascular etiology from diabetes. PLAN: Await testosterone and PSA, which were drawn today. We discussed treatment with Axiron, and ifhis testosterone is below 300 we will offer this to him. I wish to thank Dr. Graham for this urologic consultation. Felice Tovar MD [facility] cc: Richardson Graham MD /BJQ Job ID: [id number] /[id number] Document ID: [id number] documented in this encounter Plan of Treatment Not on filedocumented as of this encounter Procedures Procedure Name Priority Date/Time Associated Comments Diagnosis TESTOSTERONE, TOTAL Routine 03/04/2014 8:43 AM ED (erectile Re sults for this ([facility]) CDT dysfunction) procedur e are in the results section. PSA DIAGNOSTIC Routine 03/04/2014 8:43 AM ED (erectile Results for this CDT dysfunction) procedure are i n the results section. URINALYSIS, REFLEX Routine 03/04/2014 5:00 AM Nocturia Res ults for this TO CULTURE CDT procedure are i n the results section. documented in this encounter Results TESTOSTERONE, TOTAL (03/04/2014 8:43 AM CDT) athologist Signature Testosterone, 262 240 - 950 03/06/2014 [facility] Total ng/dL 1:17 PM CDT LABORATORY Comment: Testing performed by Liquid Chromatograp hy-Tandem Mass Spectrometry (LC-MS/MS). Test Performed by: [address] [address] Team Primary Care Physician: Darwin monahan III, M.D. Specimen Anatomical Collection Method Collection Time Receive d Time (Source) Location / / Volume Laterality 03/04/2014 8:43 AM 4 1:06 CDT PM CDT Felice Tovar MD EC LAB SEND OUT ORDERABLES Performing Organization Address City/State/ZIP Code Phon e Number [facility] PSA (03/04/2014 8:43 AM CDT) P athologist Signature Prostate 0.44 0.00 - 03/04/2014 [facility] Specific 4.00 ng/mL 2:02 PM CDT LABORATORY Antigen Specimen Anatomical Collection Method Collection Time Receive d Time (Source) Location / / Volume Laterality 03/04/2014 8:43 AM 4 1:07 CDT PM CDT Felice Tovar MD EC CHEMISTRY ORDERABLES ABN Performing Organization Address City/[facility]/ZIP Code Phon e Number [place] [address] LABORATORY [facility] UA TO CULTUR PRN (03/04/2014 5:00 AM CDT) Patholo gist Method Time Signature Type CVMS 03/04/2014 ST. 8:17 AM CDT [facility] Color Yellow Yellow 03/04/2014 ST. 8:18 AM CDT [facility] Appearance Clear Clear 03/04/2014 ST. 8:18 AM CDT [facility] Urine Specific 1.025 1.003 - 03/04/2014 [place] [place] 1.035 8:18 AM CDT [facility] Urine pH 5.0 5.0 - 8.0 03/04/2014 ST. 8:18 AM CDT [facility] Urine Leukocyte Neg Neg 03/04/2014 [facility]. [place] 8:18 AM CDT [facility] Urine Nitrites Neg Neg 03/04/2014 ST. 8:18 AM CDT [facility] Urine Protein Neg Neg-Trace 03/04/2014 ST. mg/dL 8:18 AM CDT [facility] Urine Glucose Neg Neg mg/dL 03/04/2014 ST. 8:18 AM [facility] Urine Ketone Neg Neg mg/dL 03/04/2014 ST. 8:18 AM [facility] Microscopic Not Indicated 03/04/2014 ST. Exam: 8:18 AM [facility] Comment: Please Note: A routine urine not reflexing to a micro scopic exam automatically means the dipstick blood t est is negative. Urine WBC's Not Indicated 0 - 8 /HPF 03/04/2014 8:18 AM Jak [place] [facility] Urine RBC's Not Indicated 0 - 3 /HPF 03/04/2014 8:18 AM Jak [place] [facility] Urine Culture Not Indicated 03/04/2014 8:[address] [facility] Ref[address] [facility] Specimen Anatomical Collection Method Collection Time Receive d Time (Source) Location / / Volume Laterality [facility] 03/04/2014 5:00 AM 03/04/20 14 8:17 MID-STREAM URINE T AM T SPECIMEN OBTAINED BY CLEAN CATCH PROCEDURE / Unknown Felice Tovar MD EC URINE ORDERABLES Performing Organization Address City/State/ZIP Code Phon e Number [facility]OR[facility]ORY documented in this encounter Visit Diagnoses Diagnosis Nocturia - Primary ED (erectile dysfunction) Impotence of organic origin documented in this encounter Care Teams Security Guard Relationship Specialty Start Date End Date Richardson Graham MD PCP - General Family Medicine 04/06/12 07/18/14[address] [address] documented as of this encounter
--- OUTSIDE RECORDS SUMMARY | 2022-09-20 12:28 | XMS_ITS | Encounter Summary ---
:1950 Author Organization [employer] Address [address] [address] Phone Care Team Providers Name Role Phone Richardson Graham MD Primary Care Provider Reason for Visit Reason Comments Refill Request Encounter Details Date Type Department Care Team Description 05/21/2013 Refill [facility] Olivia Graham MD Refill Request FAMILY MEDICINE [address] [facility] [place] [address] [place] [address] [phone] Social History Tobacco Use Types Packs/Day Years Used Date Smoking Tobacco: Never Smokeless Tobacco: Never Alcohol Use Standard Drinks/Week Comments No 0 (1 standard drink = 0.6 oz pure alcoho l) occasional Sex Assigned at Date Recorded Not on file documented as of this encounter Ordered Prescriptions Prescription Sig Dispensed Refills Start Date End Date metFORMIN (GLUCOPHAGE) TAKE ONE TABLET BY 180 Tab 0 05/2107/13/2013 1000 MG tablet MOUTH TWICE DAILY documented in this encounter Plan of Treatment Not on filedocumented as of this encounter Visit Diagnoses Not on filedocumented in this encounter Discontinued Medications Medication Sig Discontinue Reason Start Date End Date metFORMIN (GLUCOPHAGE) TAKE ONE TABLET BY 02/15/2013 05/21/2013 1000 MG tablet MOUTH TWICE DAILY documented as of this encounter Care Teams Sample Sawyer Relationship Specialty Start Date End Date Richardson Graham MD PCP - General Family Medicine 04/06/12 07/18/142023 [address] [place] [address] documented as of this encounter
--- OUTSIDE RECORDS SUMMARY | 2022-09-20 12:28 | XMS_ITS | Encounter Summary ---
:1950 Author Organization [employer] Address [address] [address] Phone Care Team Providers Name Role Phone Richardson Graham MD Primary Care Provider Reason for Visit Reason Comments Refill Request Encounter Details Date Type Department Care Team Description 02/15/2013 Refill [facility] Olivia Graham MD Refill Request FAMILY MEDICINE [address] 2023 [facility] [place] [address] [place] [address] [phone] Social History Tobacco Use Types Packs/Day Years [...] TAKE ONE TABLET BY 180 Tab 0 02/1505/21/2013 1000 MG tablet MOUTH TWICE DAILY documented in this encounter Plan of Treatment Not on filedocumented as of this encounter Visit Diagnoses Not on filedocumented in this encounter Discontinued Medications Medication Sig Discontinue Reason Start Date End Date metFORMIN (GLUCOPHAGE) TAKE ONE TABLET BY 04/20/2012 02/15/2013 1000 MG tablet MOUTH TWICE DAILY documented as of this encounter Care Teams Manual Lathe Machinist Relationship Specialty Start Date End Date Richardson Graham MD PCP - General Family Medicine 04/06/12 07/18/14[address] [place] [address] documented as of this encounter
--- OUTSIDE RECORDS SUMMARY | 2022-09-20 12:28 | XMS_ITS | Encounter Summary ---
:1950 Author Organization [facility] Address [address] [address] Phone Care Team Providers Name Role Phone Richardson Graham MD Primary Care Provider Reason for Visit Reason Comments Congestion nasal started Friday , had a fever on Friday Encounter Details Date Type Department Care Team Description 10/26/2012 Office Visit [facility] [place] (upper respiratory URGENT CARE infection) (Primary [id number] Dx) [place] [address] Social History Tobacco Use Types Packs/Day Years Used Date Smoking Tobacco: Never Smokeless Tobacco: Never Alcohol Use Standard Drinks/Week Comments No 0 (1 standard drink = 0.6 oz pure alcoho l) occasional Sex Assigned at Date Recorded Not on file documented as of this encounter Last Filed Vital Signs Vital Sign Reading Time Taken Comments Blood Pressure 121/74 10/26/2012 8:58 AM STRATEGIC INTELLIGENCE OFFICER Pulse 81 10/26/2012 8:58 AM STRATEGIC INTELLIGENCE OFFICER Temperature 37.2 ??C (99 ??F) 10/26/2012 8:58 AM STRATEGIC INTELLIGENCE OFFICER Respiratory Rate - - Oxygen Saturation - - Inhaled Oxygen Concentration - - Weight 121.1 kg (267 lb) 10/26/2012 8:58 AM STRATEGIC INTELLIGENCE OFFICER Height 177.8 cm (5' 10) 10/26/2012 8:58 AM STRATEGIC INTELLIGENCE OFFICER Body Mass Index 38.31 10/26/2012 8:58 AM STRATEGIC INTELLIGENCE OFFICER documented in this encounter Patient Instructions Patient InstructionsYasmine Womack RN, STATUE CARVER - 10/26/2012 9:14 AM CST Cough What is coughing? Coughing is a sudden forcing of air from the lungs. It is a natural reflex to clear the air passages. It can also be a symptom of a disease or other medical problem. Some coughs are dry and hacking. Some coughs are deeper, even painful at times. Other coughs bring up mucus or phlegm. Healthcare providers call these coughs productive coughs. Coughs that bring mucus up out of your airways can make it easier to breathe. For example, if you have pneumonia, coughing ishelpful because it clears the airway of mucus. This relieves chest congestion and makes it easier tobreathe. How does it occur? Coughing often occurs when the airways are irritated. It can be caused by: a cold or flu sinus infection bronchitis allergies heartburn (reflux) asthma. It may also be caused by more serious illnesses such as: heart failure pneumonia tuberculosis cancer. Some drugs may cause coughing as a side effect. Examples of such drugs are NATHEN inhibitors and beta blockers, which are drugs used to treat high blood pressure. Sometimes people just have a nervous habit of coughing or throat clearing. Any cough that lasts several weeks or more is called a chronic cough. This is true even if it occursonly in the morning, only at night, or only in the winter. One common cause of a chronic cough is exposure to irritants such as smoke or pollen. Some people with a chronic cough get so used to coughingthat they consider it normal. This is often true of the smoker's cough that many smokers come to accept as a part of waking up in the morning. The problem may be more serious than they think. How is it treated? Many different medicines for coughs are available without a prescription. If you need relief from a dry, hacking cough, choose a type of cough medicine called a cough suppressant. If you need to loosenmucus, choose an expectorant. Cough suppressants are medicines that lessen the urge to cough. If you have a dry, hacking cough anddon???t have mucus in your airways that needs to be coughed up, a cough suppressant may help you cough less and sleep better. Cough medicines with the initials DM in the name contain the suppressant drug called dextromethorphan. Expectorants may help keep the mucus thin and bring up mucus from the lungs when you cough. This canrelieve chest congestion and make it easier to breathe. The drug used most often as an expectorant is guaifenesin. How can I take care of myself? If you smoke, stop. If someone else in your household smokes, ask them to smoke outside. Avoid exposure to secondhand smoke. Take cough medicine if recommended by your healthcare provider. Always follow the instructions on the label of cough medicines. If you have a wet-sounding cough, don???t use medicines that contain antihistamines. Antihistamines make the mucus dry and harder to cough up. Unless your healthcare provider has told you differently, drink plenty of liquids to help loosen mucus and make it easier to cough it up. It can also help to drink warm liquids such as soup or hot apple juice. If the air in your bedroom is dry, a cool-mist humidifier can moisten the air and help make breathing easier. Be sure to follow the full service vending driver's instructions for cleaning the humidifier often so thatbacteria and mold cannot grow. You can also try running hot water in the shower or bathtub to steam up the bathroom. Sit in there for 10 to 15 minutes if you are coughing hard or having trouble breathing. Get plenty of rest. Call your healthcare provider or 911 right away if you have a cough that causes shortness of breath or severe pain, or if you begin coughing up blood. Call your healthcare provider right away if you have trouble breathing. Call your provider during office hours if you have: a cough with fever higher than 101.5??F (38.6??C) phlegm that looks greenish or has streaks of blood in it a cough that interferes with your sleep or daily activities a cough that has not gotten better in 7 days a violent cough that comes on suddenly a high-pitched sound when you breathe in unexpected weight loss as well as a cough. Developed by [employer]. Published by [employer]. Last modified: 2011-04-03 Last reviewed: 2011-01-13 This content is reviewed periodically and is subject to change as new health information becomes available. The information is intended to inform and educate and is not a replacement for medical evaluation, advice, diagnosis or treatment by a healthcare professional. References Adult Advisor 2010.3 Index ?? 2010 [facility] and/or its affiliates. All rights reserved. TEGIC INTELLIGENCE OFFICER documented in this encounter Ordered Prescriptions Prescription Sig Dispensed Refills Start Date End Date guaiFENesin - codeine Take 10 mL by mouth 240 mL 0 10/2607/13/2013 (GUAIFENESIN-CODEINE) three times a day as 100-10 MG/5ML needed for Cough. syrupIndications: URI (upper respiratory infection) azithromycin (ZITHROMAX Take 2 tablets (500 6 Tab 0 10/31/2012 Z-FRANDY) 250 MG mg) on day 1 and tabletIndications: URI take 1 tablet (250 (upper respiratory mg) on days 2-5. infection) documented in this encounter Progress Notes Yasmine Womack RN, STATUE CARVER - 10/26/2012 2:15 PM CST [facility] Patient Name: ALINE PABON Date of Service: 10/26/2012 : 1950 Age: 62Y Sex: M DC Site MRN: Patient Loc/Room #: BRBAXUC/ Provider: Yasmine Womack RN, STATUE CARVER, Urgent Care OFFICE NOTE SITE: [facility] CHIEF COMPLAINT: Cough. SUBJECTIVE: Aline presents to the clinic today with cough, cold, and congestion. He just feels lousy. 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 He did have a flu shot this year. He is using some Mucinex and some Tylenol [id number], not really helping. He denies any GIsymptoms. OBJECTIVE: On observation, this is an alert 62-year-old male in no acute distress. Vitals - temperature is 99, BP 121/74. HEENT - eyes, sclerae clear without injection bilaterally. Ears, TMs maybe a little bit dull with a diffuse cone of light reflex. Canals essentially clear. Nasal mucosa is pink andmoist. No real tenderness with percussion of his frontal or maxillary sinuses. Posterior oropharynx is a little erythematous with a little bit of postnasal drip. Neck is supple. No lymphadenopathy. Heart has a regular rate and rhythm. Lungs - he has a little bit of scattered rhonchi throughout. ASSESSMENT: URI. PLAN: Z-Frandy as directed, Robitussin-AC, plenty of fluids, Tylenol and ibuprofen. I did caution him to hang onto the prescription for the Z-Frandy, wait 2 days, and fill that to see if he does not get better on his own. Aline is agreeable with these recommendations. Yasmine Womack RN, STATUE CARVER [facility] cc: /VALDO Job ID: [id number] /[id number] Document ID: [id number] TEGIC INTELLIGENCE OFFICER Yasmine Womack RN, PRADEEP - 10/26/2012 9:09 AM CST This note has been dictated. TEGIC INTELLIGENCE OFFICER Marley Lewis LPN - 10/26/2012 9:02 AM CST Fall Risk No TEGIC INTELLIGENCE OFFICER documented in this encounter Plan of Treatment Not on filedocumented as of this encounter Visit Diagnoses Diagnosis URI (upper respiratory infection) - Prim reji Acute upper respiratory infections of un specified site documented in this encounter Discontinued Medications Medication Sig Discontinue Reason Start Date End Date triamcinolone acetonide See above directions Course of treatment 10/26/2012 (KENALOG) 0.1 % cream completed clindamycin (CLEOCIN) Take 1 Cap by mouth Course of treatment 09/1510/26/2012 150 MG capsule every six hours. completed CIALIS 20 MG tablet TAKE ONE TABLET BY Course of treatment 10/18/19 12 10/26/2012 MOUTH NEEDED completed documented as of this encounter Historical Medications This list may reflect changes made after this encounter. Medication Sig Dispensed Refills Start Date End Date ranitidine (ZANTAC) 150 Take 1 Tab by mouth 62 Tab 11 01/11/2014 MG tablet two times a day. added in this encounter Care Teams Box Bender Relationship Specialty Start Date End Date Richardson Graham MD PCP - General Family Medicine 04/06/12 07/18/[address] [id number] documented as of this encounter
--- OUTSIDE RECORDS SUMMARY | 2022-09-20 12:28 | XMS_ITS | Encounter Summary ---
:1950 Author Organization [employer] Address [address] [address] Phone Care Team Providers Name Role Phone Richardson Graham MD Primary Care Provider Reason for Visit Reason Comments Physical Encounter Details Date Type Department Care Team Description 09/15/2012 Office Visit [facility] Richardson Graham, Routine g eneral medical examination at a health care facility (Primary Dx); [facility] YOUNG MD Acute pancreatitis; 2023 Essential hypertension, benign; [facility] Diabetes mellitus type II; [place] [address] [place] [place] Renal insufficiency; [phone] [id number] Special screening for malignant neoplasm of prostate; [phone] Dysphagia; (Work) Special screening for malignant neoplasm s, colon; [phone] Need for prophy lactic vaccination against viral disease (Fax) Social History Tobacco Use Types Packs/Day Years Used Date Smoking Tobacco: Never Smokeless Tobacco: Never Alcohol Use Standard Drinks/Week Comments No 0 (1 standard drink = 0.6 oz pure alcoho l) occasional Sex Assigned at Date Recorded Not on file documented as of this encounter Last Filed Vital Signs Vital Sign Reading Time Taken Comments Blood Pressure 149/93 09/15/2012 3:20 PM MOTOR ASSEMBLER Pulse 63 09/15/2012 3:20 PM MOTOR ASSEMBLER Temperature - - Respiratory Rate 12 09/15/2012 3:20 PM MOTOR ASSEMBLER Oxygen Saturation - - Inhaled Oxygen Concentration - - Weight 123.8 kg (273 lb) 09/15/2012 3:20 PM MOTOR ASSEMBLER Height 182.9 cm (6') 09/15/2012 3:20 PM MOTOR ASSEMBLER Body Mass Index 37.03 09/15/2012 3:20 PM MOTOR ASSEMBLER documented in this encounter Patient Instructions Patient InstructionsPage Lilly - 09/15/2012 8:33 AM CST Please stop at desk to schedule appt in: Lab results will be returned to you by mail within 3 to 5 days (allow for shipping). Specialty labs that are sent to other facilities may take up to 7 to 10 days to get results back. Please be patient.If your results are abnormal, you will likely get a call from your office. Voicemail messages to your doctor will be answered in the order they are received. We appreciate your patience with this. All calls received by 3:00pm will be returned on the same business day. Calls received after 3:00pm may be returned on the next business day. If your concerns are emergent, please ask to be transferred to our Triage staff, who will assist you further. Appointment reminder: Please plan on arriving 15 minutes early for your appointments. This will ensure enough time to update your account, so that you are seen in a timely manner. Bring an updated listof your medication(s) and any other pertinent health history. FOR ALL REFILL REQUESTS: 1. Please call your pharmacy when you have a weeks worth of medications left for your re-fill. 2. Allow 7 days for your refill request to be processed by your pharmacy and the clinic. 3. Tell your pharmacy that only E-SCRIBE prescription's will be addressed by your physician and refilled. 4. DO NOT CALL THE CLINIC FOR YOUR REFILL. The refill request must come via an E-SCRIBE from the pharmacy. R ASSEMBLER documented in this encounter Ordered Prescriptions Prescription Sig Dispensed Refills Start Date End Date zoster vaccine live Inject 0.65 mL under 0.65 mL 0 201109/15/2012 (ZOSTAVAX) 29874 the skin one time UNT/0.65ML for 1 dose. injectionIndications: Need for prophylactic vaccination against viral disease vardenafil (LEVITRA) 20 Take 1 Tab by mouth 10 Tab 4 01/201207/13/2013 MG tablet one time a day as needed for Erectile dysfunction. glyBURIDE (DIABETA) 5 MG Take 1 Tab by mouth 60 Tab 2 05/15/2013 tablet every morning with breakfast. documented in this encounter Progress Notes Richardson Graham MD - 09/17/2012 3:07 PM CST [facility] Patient Name: ALINE PABON Date of Service: 09/15/2012 : 1950 Age: 62Y Sex: M DC Site MRN: Patient Loc/Room #: [facility] FP/ Provider: Richardson Graham MD, Family Practice OFFICE NOTE SITE: [facility] PROBLEMS: 1. Well male examination. 2. Diabetes. 3. Elevated blood pressure. 4. Elevated triglycerides. 5. Renal insufficiency. 6. Right hip pain. 7. Dysphagia. 8. ED. SUBJECTIVE: Patient has several concerns, these are addressed. Generally healthy. PAST HISTORY: Medical illnesses and medications are all up-to-date on the [facility] health review form. REVIEW OF SYSTEMS: HEENT [...] Genital - testes, no masses. Hernia negative. Rectal - prostate isflat, no nodularity, normal consistency. No rectal masses. Skin - normal, no lesions noted. Pulses -normal peripheral. Neurologic - normal. ASSESSMENT: 1. Cardiac risk: Negative smoking. Blood pressure today is a little elevated at 149/93. Currently onmedications including Lopressor 50 mg b.i.d. and amlodipine 5 mg daily. He states at home his blood pressure is doing quite well but his blood pressure cuff has stopped working and I explained to him he get can his blood pressure checked here without charge. Our goal is to keep the blood pressure lessthan 140/90 or just a little bit lower. He is going to try a low- salt diet and be careful with caffeine. He is going to try to lose some weight. If it is not coming down, I think we could increase the amlodipine. We could also consider adding lisinopril especially since he is diabetic. His lipid was checked recently and his LDL is not available because his triglycerides were quite high. His total xtb273 but HDL is low at 20. We are going to ask him to try to lose weight, get the diabetes under control and then recheck his cholesterol within 2 months. He is not on any cholesterol medications and I t hink in the long run if it does not come down, we will initially start with fenofibrate. 2. Cancer screen: A PSA was not done. We will set it up for his next lab in 2 months and a colonoscopy. Skin - if any moles change or sores that will not heal, let us know. No lesions are noted. 3. Immunizations: He is given a Zostavax today. He is up to date on influenza, he has had that done,and his tetanus was in 2007. PROBLEMS: 1. Diabetes. He is at goal for aspirin, nonsmoker. Blood pressure is a little high. We are going to watch this. His cholesterol is too high with triglycerides, and his A1c has jumped from 6.5 to 8.5. We talked about some options. He is on metformin 1000 mg b.i.d. Will add glyburide 5 mg daily. If his sugars are not coming down, I think talking to the jacket preparer. He has used Byetta in the past and we could consider this or Januvia or Lantus. We are going to have an A1c done in 2 months. If it has not dropped down significantly, then I think we need to pursue this further. I explained to him side effects from glyburide and that he has to watch for hypoglycemia. 2. Hypertension. See above plan. 3. Triglycerides. See above plan. Diet and weight loss initial plan. 4. Renal insufficiency. Recheck in 2 months. 5. Right hip pain. About Thanksgiving, about 2 weeks ago, he had been on an exercise bicycle and within a few days of using that he developed some pain in his right hip. He had been working with a chiropractor and the pain is resolved. It was a tender area just over the tip of the hip itself at the greater trochanter, but he also noticed some pain that seemed to radiate from that area down over the front of his thigh down towards his knee. There was no numbness. The pain is nearly resolved. On examination he has a little tenderness at the greater trochanter bursa yet and it was somewhat painful when he laid on it initially. 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 He is better from this, will observe. I explained to him the basic treatment for either the back problem or the hip would be to ice, ibuprofen, and resting it and if it is persisting, then I think he gets an x-ray of his right hip, if needed an orthopaedic opinion with a steroid injection and for his back if it is recurrent, then I think we would talk about continued chiropractic or physical therapy and x-ray of his back. 6. Dysphagia. He states at certain times when he swallows he gets a burning sensation of quite severe discomfort in his throat. He has been on acid reflux medications for some time. He has been trying to raise the head of the bed and it seems to help. We are going to set up an EGD. He is due for a colonoscopy and this will be set up for him as well. 7. ED. He has tried Viagra. He has been on Cialis and it really is not working. He gets erections but he just does not hold the erection and we will try Levitra 20 mg daily. If this is not working, then I think urologic consultation for possible other options and treatments. I did also mention Cialis 5 mg on a daily basis would be something he could consider. PLAN: Urine, Zostavax, followup lab, A1c, chem. 7, PSA, lipid within the next 2 months. Upper GI endoscopy, colonoscopy scheduled. Begin a trial of Levitra and he understands how to use this correctly and side effects. Add glyburide 5 mg daily to his current regimen and watching blood pressure closely. Richardson Graham MD [facility] cc: /RFM Job ID: [id number] /cmwts Document ID: [id number] R ASSEMBLER Richardson Graham MD - 09/16/2012 8:11 PM CST This note has been dictated. R ASSEMBLER Page Lilly - 09/15/2012 3:24 PM CST Fall Risk No Whooley Screening Questions 1. During the past month, have you often been bothered by feeling down, depressed, or hopeless? Not at all 2. During the past month, have you often been bothered by little interest or pleasure in doing things? Not at all R ASSEMBLER documented in this encounter Plan of Treatment Not on filedocumented as of this encounter Procedures Procedure Name Priority Date/Time Associated Diagnosis Comme nts URINALYSIS, REFLEX Routine 09/15/2012 3:10 PM Routine general Results for this TO CULTURE MOTOR ASSEMBLER medical examination procedur e are in at a health care the results facility section. documented in this encounter Results (ABNORMAL) LIPID PROFILE (11/17/2012 7:20 AM MOTOR ASSEMBLER) P athologist Signature Cholesterol 158 114 - 200 [facility] mg/dL [facility] Comment: Total Cholesterol Reference Ranges Desirable: ? <200 ?mg/dL Borderline High: ?? 200-239 mg/dL High: ?>239 ?mg/ dL TRIGLYCERIDE 210 (H) 10 - 200 mg/dL [facility] HDL CHOLESTEROL 31 (L) 40 - 60 mg/dL [facility] LDL- CALCULATED 85 mg/dL [facility] Comment: LDL Cholesterol Reference Ranges Optimal: ?<100 ? mg/dL Near Optimal: ? 100-129 ??mg/dL Borderline High: ??130-159 ??mg/dL High: ? 160-189 ??mg/dL Very High: ?>189 ? mg/dL Specimen Anatomical Collection Method Collection Time Receive d Time (Source) Location / / Volume Laterality 11/17/2012 7:20 AM 3 7:56 MOTOR ASSEMBLER AM MOTOR ASSEMBLER Richardson Graham MD EC CHEMISTRY ORDERABLES ABN Performing Organization Address City/State/ZIP Code Phon e Number [facility] PSA (11/17/2012 7:20 AM MOTOR ASSEMBLER) athologist Signature Prostate 0.42 0.00 - [facility] Specific 4.00 ng/mL LABORATORY Antigen Specimen Anatomical Collection Method Collection Time Receive d Time (Source) Location / / Volume Laterality 11/17/2012 7:20 AM 3 MOTOR ASSEMBLER 10:42 AM MOTOR ASSEMBLER Richardson Graham MD EC CHEMISTRY ORDERABLES ABN Performing Organization Address City/State/ZIP Code Phon e Number [facility] (ABNORMAL) BASIC MET PROF (11/17/2012 7:20 AM MOTOR ASSEMBLER) P athologist Signature SODIUM 143 134 - 143 [facility] mEq/L [facility] POTASSIUM 4.2 3.4 - 5.1 [facility] mEq/L [facility] Chloride 108 99 - 110 [facility] mEq/L [facility] CO2 23 22 - 29 [facility] mEq/L [facility] BUN 23 5 - 24 [facility] mg/dL [facility] Creatinine 1.33 (H) 0.70 - [facility] 1.20 mg/dL [facility] GFR CALC 55 (A) [facility] Comment: GFR Normal: >60 mL/min/1.73 m2 Calcium 9.6 8.4 - 10.2 mg/dL [facility] ANION GAP 12 3 - 15 [facility] GLUCOSE 103 (H) 70 - 99 mg/dL [facility] ORY Specimen Anatomical Collection Method Collection Time Receive d Time (Source) Location / / Volume Laterality 11/17/2012 7:20 AM 3 7:56 MOTOR ASSEMBLER AM MOTOR ASSEMBLER Richardson Graham MD EC CHEMISTRY ORDERABLES Performing Organization Address City/State/ZIP Code Phon e Number [facility] (ABNORMAL) A1C(HGB AIC) (11/17/2012 7:20 AM MOTOR ASSEMBLER) P athologist Signature A1C (HGB AIC) 6.5 (H) 4.0 - 6.0 [facility] % LAB[facility] Est Average 140 mg/dL [facility] Glucose LABORATORY Specimen Anatomical Collection Method Collection Time Receive d Time (Source) Location / / Volume Laterality 11/17/2012 7:20 AM 3 7:56 MOTOR ASSEMBLER AM MOTOR ASSEMBLER Richardson Graham MD EC CHEMISTRY ORDERABLES ABN Performing Organization Address City/State/ZIP Code Phon e Number [facility] COLONOSCOPY,SCREEN PREV (10/08/2012 12:00 AM MOTOR ASSEMBLER) Specimen (Source) Anatomical Location Collection Method / Collectio n Time Received Time / Laterality Volume 10/08/2012 Transcriptions Blair Hollingsworth MD - 10/08/2012 11:[address] [facility] Patient Name: ALINE PABON Date of Service: 10/08/2012 : [birth year] Age: 62Y Sex: M DC Site MRN: Patient Loc/Room #: [facility]/ Provider: Blair Hollingsworth MD, Gastroentero logy GI PROCEDURE SITE: [facility] ORDERED BY: DATE OF PROCEDURE: 10/08/2012 Colonoscopy and endoscopy with biopsy. PRIMARY CARE PHYSICIAN: Richardson Graham MD INDICATIONS: Odynophagia and dysphagia c omplaints. [...] as the biopsy results on to Dr. Garham and the patient upon completion. POST-CONSCIOUS SEDATION/ANESTHESIA [...] verbal and written format. Blair Hollingsworth MD [facility] Gastroenterology cc: MD Aline Vyas /IRMA Job ID: [id number] / Document ID: [id number] Blair Hollingsworth MD - 10/09/2012 1:49 PM CS T [facility] Patient Name: ALINE PABON Date of Service: 10/08/2012 : [birth year] Age: 62Y Sex: M DC Site MRN: Patient Loc/Room #: [facility]/ Provider: Blair Hollingsworth MD, Gastroentero logy GI PROCEDURE SITE: [facility] ORDERED BY: ADDENDUM PROCEDURE: Endoscopy Review of histology report identified th e esophageal biopsies documented no evidence of eosinophilic esophagitis changes. Blair Hollingsworth MD [facility] Gastroenterology cc: Aline Pabon Richardson Graham MD /JCB Job ID: [id number] /mb Document ID: [id number] Richardson Graham MD EC PROCEDURES (ABNORMAL) UA TO CULTUR PRN (09/15/2012 3:10 PM MOTOR ASSEMBLER) [facility] Method Time Signature Type CVMS [facility] Color YELLOW [facility] Appearance CLEAR [facility] Urine Specific >=1.030 [facility] [place] [facility] Urine pH 5.5 [facility] Urine Leukocyte Neg [facility] Urine Nitrites Neg [facility] Urine Protein Neg mg/dL [facility] Urine Glucose >=1000 (A) mg/dL [facility] Urine Ketone Neg mg/dL [facility] Comment: URINALYSIS REFERENCE RANGES ? MICROSCOPIC REFERENCE ?RANGES Appearance: ?Clear ?WBC'S: ? 0-8/HPF Color: ? Yellow ? RBC'S: ? 0-3/HPF Specific [place]: ??1.003-1.035 ?Hyaline Casts: 0-3/LPF pH: ?5.0-8.0 Protein: ? Neg-Trace Glucose: ? Neg Ketone: ?Neg Blood: ? Neg Nitrite: ? Neg Leuk Esterase: ? Neg Microscopic Exam: Not Indicated [facility] Comment: Please Note: A routine urine not reflexing to a micro scopic exam automatically means the dipstick blood t est is negative. Urine WBC's Not Indicated /HPF [facility] Urine RBC's Not Indicated /HPF [facility] Urine Culture Reflex Not Indicated [facility] Specimen Anatomical Collection Method Collection Time Receive d Time (Source) Location / / Volume Laterality HIGH SPEED PRINTER OPERATOR 09/15/2012 3:10 PM 09/15/20 12 3:22 MID-STREAM URINE MOTOR ASSEMBLER PM MOTOR ASSEMBLER SPECIMEN OBTAINED BY CLEAN CATCH PROCEDURE / Unknown Richardson Graham MD EC URINE ORDERABLES Performing Organization Address City/State/ZIP Code Phon e Number [facility] documented in this encounter Visit Diagnoses Diagnosis Routine general medical examination at a health care facility - Primary Acute pancreatitis Essential hypertension, benign Diabetes mellitus type II Type II or unspecified type diabetes sadia litus without mention of complication, not stated as uncontrolled Renal insufficiency Unspecified disorder of kidney and urete r Special screening for malignant neoplasm of prostate Dysphagia Dysphagia, unspecified Special screening for malignant neoplasm s, colon Need for prophylactic vaccination agains t viral disease Need for prophylactic vaccination and in oculation against other viral diseases Special screening for malignant neoplasm s, colon Dysphagia Dysphagia, unspecified documented in this encounter Discontinued Medications Medication Sig Discontinue Reason Start Date End Date ranitidine (ZANTAC) 150 Take 1 Tab by Prescription not 11/18/2011 09/15/2012 MG tabletIndications: mouth two times a filled/refilled Acute pancreatitis day. ascorbic acid (VITAMIN Take 1 Tab by Prescription not 09/17/2011 09/15/2012 C) 500 MG tablet mouth as needed filled/refilled (cold sysmptoms). documented as of this encounter Historical Medications This list may reflect changes made after this encounter. Medication Sig Dispensed Refills Start Date End Date ranitidine (ZANTAC) 150 MG Take 1 Tab by mouth 62 Tab 11 09/15/2012 10/08/2012 tabletIndications: Acute two times a day. pancreatitis clindamycin (CLEOCIN) 150 Take 1 Cap by mouth 40 Cap 0 1 11/16/2011 10/26/2012 MG capsule every six hours. added in this encounter Orders Procedures Count Last Ordered Date First Ordered Date UPPER GI ENDOSCOPY,DIAGNOSIS 1 09/15/2012 Immunization/Injection Count Last Ordered Date First O rdered Date IMMUNIZATION ADMINISTRATION; ONE VACCINE 1 012 (SINGLE OR COMBINATION VACCINE/TO* ZOSTAVAX ADMIN 1 09/15/2012 ZOSTER VACCINE 1 09/15/2012 documented in this encounter Care Teams Aged Or Disabled Care Worker Relationship Specialty Start Date End Date Richardson Graham MD PCP - General Family Medicine 04/06/12 07/18/14[address] [id number] documented as of this encounter
--- OUTSIDE RECORDS SUMMARY | 2022-09-20 12:28 | XMS_ITS | Encounter Summary ---
:1950 Author Organization [employer] Address [address] [address] Phone Care Team Providers Name Role Phone Richardson Graham MD Primary Care Provider Reason for Visit Reason Onset Date Comments Refill Request 05/14/2013 Encounter Details Date Type Department Care Team Description 05/14/2013 Refill [facility] asher Vargas, [facility] Refill Request MEDICINE [phone] [place], [place] [id number] Social History Tobacco Use Types Packs/Day Years Used Date Smoking Tobacco: Never Smokeless Tobacco: Never Alcohol Use Standard Drinks/Week Comments No 0 (1 standard drink = 0.6 oz pure alcoho l) occasional Sex Assigned at Date Recorded Not on file documented as of this encounter Ordered Prescriptions Prescription Sig Dispensed Refills Start Date End Date Lancet Devices MISC 1 Each by Does not 100 Each 4 05/14/20 13 apply route four times a day. glucose blood test 1 Strip four times 100 Each 3 201207/18/2014 strip (BLOOD GLUCOSE TEST a day. STRIPS) strip documented in this encounter Plan of Treatment Not on filedocumented as of this encounter Visit Diagnoses Not on filedocumented in this encounter Care Teams Cork Compounder Relationship Specialty Start Date End Date Richardson Graham MD PCP - General Family Medicine 04/06/12 07/18/14[address] [address] documented as of this encounter
--- OUTSIDE RECORDS SUMMARY | 2022-09-20 12:28 | XMS_ITS | Encounter Summary ---
:1950 Author Organization [employer] Address [address] [address] Phone Care Team Providers Name Role Phone Richardson Graham MD Primary Care Provider Encounter Details Date Type Department Care Team Description 10/12/2013 Orders Only [facility] Richardson Graham MD Essential hypertension, [facility] [place] [address] benign (Primary Dx) 2023 [place] [address] [phone] Social History Tobacco Use Types Packs/Day Years Used Date Smoking Tobacco: Never Smokeless Tobacco: Never Alcohol Use Standard Drinks/Week Comments No 0 (1 standard drink = 0.6 oz pure alcoho l) occasional Sex Assigned at Date Recorded Not on file documented as of this encounter Ordered Prescriptions Prescription Sig Dispensed Refills Start Date End Date amLODIPine (NORVASC) 5 MG Take 1 Tab by mouth 90 Tab 3 1 10/06/2014 tablet one time a day. metoprolol tartrate Take 1 Tab by mouth 180 Tab 3 013 10/06/2014 (LOPRESSOR) 50 MG tablet two times a day. documented in this encounter Plan of Treatment Not on filedocumented as of this encounter Visit Diagnoses Diagnosis Essential hypertension, benign - Primary documented in this encounter Discontinued Medications Medication Sig Discontinue Reason Start Date End Date metoprolol tartrate TAKE ONE TABLET BY 01/02/2013 (LOPRESSOR) 50 MG tablet MOUTH TWICE DAILY amLODIPine (NORVASC) 5 TAKE ONE TABLET BY 01/02/2013 10/12/2013 MG tablet MOUTH ONE TIME DAILY documented as of this encounter Care Teams Blood Bank Laboratory Technician Relationship Specialty Start Date End Date Richardson Graham MD PCP - General Family Medicine 04/06/12 07/18/14[address] [address] documented as of this encounter
--- OUTSIDE RECORDS SUMMARY | 2022-09-20 12:28 | XMS_ITS | Encounter Summary ---
:1950 Author Organization [employer] Address [address] [address] Phone Care Team Providers Name Role Phone Richardson Graham MD Primary Care Provider Reason for Visit Reason Comments Refill Request Encounter Details Date Type Department Care Team Description 10/12/2013 Refill [employer] [facility] Richardson Carballo MD Refill Request MEDICINE [address] [address] [place] [id number] [phone] Social History Tobacco Use Types Packs/Day Years [...] on filedocumented in this encounter Care Teams Acid Tender Relationship Specialty Start Date End Date Richardson Graham MD PCP - General Family Medicine 04/06/12 07/18/14[address] [id number] documented as of this encounter
--- OUTSIDE RECORDS SUMMARY | 2022-09-20 12:28 | XMS_ITS | Encounter Summary ---
:1950 Author Organization [employer] Address [address] [address] Phone Care Team Providers Name Role Phone Richardson Graham MD Primary Care Provider Reason for Visit Reason Comments Refill Request metFORMIN (GLUCOPHAGE) 1000 MG tablet Encounter Details Date Type Department Care Team Description 12/19/2013 Refill [facility] Olivia Graham MD Refill Request FAMILY MEDICINE 2023 [facility] (metFORMIN (GLUCOPHAGE) 2023 [facility] 1000 MG tablet) [place] [id number] [place] [id number] (Wo rk) Social History Tobacco Use Types Packs/Day Years Used Date Smoking Tobacco: Never Smokeless Tobacco: Never Alcohol Use Standard Drinks/Week Comments No 0 (1 standard drink = 0.6 oz pure alcoho l) occasional Sex Assigned at Date Recorded Not on file documented as of this encounter Ordered Prescriptions Prescription Sig Dispensed Refills Start Date End Date metFORMIN (GLUCOPHAGE) Take 0.5 Tabs by 45 Tab 0 014 02/24/2014 1000 MG tablet mouth one time a day. Take with food. documented in this encounter Miscellaneous Notes Telephone Encounter - Galina Covarrubias RN - 12/20/2013 2:32 PM CDT Patient's medication list, allergies, last labs, and last office visit pertaining to this specific medication have been reviewed during this refill encounter. Medication refilled per protocol. documented in this encounter Plan of Treatment Not on filedocumented as of this encounter Visit Diagnoses Not on filedocumented in this encounter Discontinued Medications Medication Sig Discontinue Reason Start Date End Date metFORMIN (GLUCOPHAGE) Take 0.5 Tabs by 07/13/2013 0 12/20/2013 1000 MG tablet mouth one time a day. Take with food. documented as of this encounter Care Teams Leather Seasoner Relationship Specialty Start Date End Date Richardson Graham MD PCP - General Family Medicine 04/06/12 07/18/14[address] [address] documented as of this encounter
--- OUTSIDE RECORDS SUMMARY | 2022-09-20 12:28 | XMS_ITS | Encounter Summary ---
:1950 Author Organization [employer] Address [address] [address] Phone Care Team Providers Name Role Phone Richardson Graham MD Primary Care Provider Reason for Visit Reason Comments Refill Request Encounter Details Date Type Department Care Team Description 01/02/2013 Refill Alytics [facility] Shilo ulrich, Richardson Drew MD Refill Request MEDICINE [id number] [place] [id number] [place], [place] [address] [phone] Social History Tobacco Use Types Packs/Day Years Used Date Smoking Tobacco: Never Smokeless Tobacco: Never Alcohol Use Standard Drinks/Week Comments No 0 (1 standard drink = 0.6 oz pure alcoho l) occasional Sex Assigned at Date Recorded Not on file documented as of this encounter Ordered Prescriptions Prescription Sig Dispensed Refills Start Date End Date amLODIPine (NORVASC) 5 MG TAKE ONE TABLET BY 90 Tab 2 10/12/2013 tablet MOUTH ONE TIME DAILY metoprolol tartrate TAKE ONE TABLET BY 180 Tab 2 01/03/20 13 10/12/2013 (LOPRESSOR) 50 MG tablet MOUTH TWICE DAILY documented in this encounter Plan of Treatment Not on filedocumented as of this encounter Visit Diagnoses Not on filedocumented in this encounter Discontinued Medications Medication Sig Discontinue Reason Start Date End Date metoprolol tartrate Take 1 Tab by mouth 12/18/2011 0 01/02/2013 (LOPRESSOR) 50 MG tablet two times a day. amLODIPine (NORVASC) 5 MG Take 1 Tab by mouth 12/09/19 12 01/02/2013 tablet one time a day. documented as of this encounter Care Teams Strategic Analyst Relationship Specialty Start Date End Date Richardson Graham MD PCP - General Family Medicine 04/06/12 07/18/14[address] [address] documented as of this encounter
--- OUTSIDE RECORDS SUMMARY | 2022-09-20 12:28 | XMS_ITS | Encounter Summary ---
:1950 Author Organization [employer] Address [address] [address] Phone Care Team Providers Name Role Phone Richardson Graham MD Primary Care Provider Reason for Visit Reason Onset Date Comments Results 03/11/2014 PSA, Testosterone Encounter Details Date Type Department Care Team Description 03/11/2014 Telephone [facility] Madan Bojorquez, Results (PSA, [address] RN Testosterone) [place], [place] [id number] Social History Tobacco Use Types Packs/Day Years Used Date Smoking Tobacco: Never Smokeless Tobacco: Never Alcohol Use Standard Drinks/Week Comments No 0 (1 standard drink = 0.6 oz pure alcoho l) occasional Sex Assigned at Date Recorded Not on file documented as of this encounter Miscellaneous Notes Telephone Encounter - Madan Bojorquez - 03/11/2014 8:58 AM CDT Patient notified. Appointment scheduled. Telephone Encounter - Madan Bojorquez - 03/11/2014 8:53 AM CDT Message copied by MADAN BOJORQUEZ on FriMarch 11, 2014 8:53 AM ------ Message from: DILLON DENIS Created: Kendal March 06, 2014 2:20 PM Psa ok. Testosterone low normal. Recommend Axiron sample with quick OV to teach application. OK to DB ------ documented in this encounter Plan of Treatment Not on filedocumented as of this encounter Visit Diagnoses Not on filedocumented in this encounter Care Teams Vice President Of Brand Management Relationship Specialty Start Date End Date Richardson Graham MD PCP - General Family Medicine 04/06/12 07/18/14[address] [address] documented as of this encounter
--- OUTSIDE RECORDS SUMMARY | 2022-09-20 12:28 | XMS_ITS | Encounter Summary ---
:1950 Author Organization [employer] Address [address] [address] Phone Care Team Providers Name Role Phone Richardson Graham MD Primary Care Provider Reason for Visit Reason Comments Encounter Details Date Type Department Care Team Description 09/16/2012 Telephone [facility] Richardson De Jesus MD Endoscopy [address] [place] [address] [place] [address] [phone] Social History Tobacco Use Types Packs/Day Years [...] on filedocumented in this encounter Care Teams General Handling Supervisor Relationship Specialty Start Date End Date Richardson Graham MD PCP - General Family Medicine 04/06/12 07/18/14[address] [place] [id number] documented as of this encounter
--- OUTSIDE RECORDS SUMMARY | 2022-09-20 12:28 | XMS_ITS | Encounter Summary ---
:1950 Author Organization [employer] Address [address] [address] Phone Care Team Providers Name Role Phone Richardson Graham MD Primary Care Provider Reason for Visit Reason Comments Diabetes 2 week follow up. Pt stated during the last 2 weeks he dropped into 70's and 61 for BS readings.. He repo rts his average readings are 115 Encounter Details Date Type Department Care Team Description 03/10/2014 Office Visit [facility] Brenda Vang Diabetes mellitus type II (Primary Dx); [facility] C, PA-C Renal insufficiency; 2023 [facility] hypertension, [place] [address] [place], [place] [phone] [address] Social History Tobacco Use Types Packs/Day Years Used Date Smoking Tobacco: Never Smokeless Tobacco: Never Alcohol Use Standard Drinks/Week Comments No 0 (1 standard drink = 0.6 oz pure alcoho l) occasional Sex Assigned at Date Recorded Not on file documented as of this encounter Last Filed Vital Signs Vital Sign Reading Time Taken Comments Blood Pressure 115/71 03/10/2014 8:06 AM CDT Pulse 61 03/10/2014 8:06 AM CDT Temperature - - Respiratory Rate - - Oxygen Saturation - - Inhaled Oxygen Concentration - - Weight 115.7 kg (255 lb) 03/10/2014 8:06 AM CDT Height 177.8 cm (5' 10) 03/10/2014 8:06 AM CDT Body Mass Index 36.59 03/10/2014 8:06 AM CDT documented in this encounter Progress Notes Tennille Beckwith LPN - 03/10/2014 8:09 AM CDT Depression ([place]) Screening Questions 1. During the past month, have you often been bothered by feeling down, depressed, or hopeless? Not at all 2. During the past month, have you often been bothered by little interest or pleasure in doing things? Not at all Chief Complaint Patient presents with ??? Diabetes 2 week follow up. Pt stated during the last 2 weeks he dropped into 70's and 61 for BS readings.. He reports his average readings are 115 Brenda Vang PA-C - 03/10/2014 8:04 AM CDT History of Present Illness: Jose Pabon is a 64 year old male who is here for a chronic disease management follow up Chief Complaint Patient presents with ??? Diabetes 2 week follow up. Pt stated during the last 2 weeks he dropped into 70's and 61 for BS readings.. He reports his average readings are 115 Patient reports morning blood sugars have been about 115, he has had hypoglycemia 3 times in the past 2 weeks, lowest was 61. He gets shaky and is able to tell when blood sugar is getting low. He has been trying to exercise more and watch diet more closely which is going well for him. He is wondering if he may stop the Glyburide in the near future if able to improve with diet and exercise. This is a possibility but he should stay on for a few more months until A1C comes down. If he is having hypoglycemia more than 1-2 times weekly, he should let us know and we can make adjustments. He had an eye exam in the past few months and will have a follow-up eye exam when diabetes is better- controlled. Patient denies any other symptoms and is satisfied with the current treatments. 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 Diabetes mellitus type II ??? Obstructive sleep apnea ??? Hypertension ??? Obesity ??? Pancreatitis, acute 09/22/2011 ??? Eczema Hands and elbows Past Surgical History Procedure Laterality Date ??? Knee arthroscopy Both knees; ACL repair left; Meniscus on the right ??? Lap,cholecystectomy 09/25/11 with cholangioram ??? Colonoscopy 07/16/02 10 yr f/u Current Outpatient Prescriptions Medication Sig ??? metFORMIN SR osmotic (FORTAMET) 1000 MG [...] apply route four times a day. ??? CIALIS 20 MG tablet TAKE ONE TABLET BY MOUTH NEEDED ??? betamethasone dipropionate 0.05 % cream APPLY [...] No current facility-administered medications for this visit. ALLERGIES: Penicillins and Band aid Family History Problem Relation Age of Onset ??? Diabetes ??? Parkinson's Disease Father Parkinson's ??? Cancer Father Prostate ??? Leukemia Mother Leukemia ??? Cancer Brother Prostate ??? Cardiovascular Disease Brother Dysrrhythmia ??? GI Disease Sister IBS ??? Musculo-skeletal Disease Sister Osteoporosis Social History: History Substance Use Topics ??? Smoking status: Never Smoker ??? Smokeless tobacco: Never Used ??? Alcohol Use: No Comment: occasional Review of Systems: See HPI. All other systems reviewed and found to be negative. Physical Exam: BP 115/71 Pulse 61 Ht 5' 10 (1.778 m) Wt 255 lb (115.667 kg) BMI 36.59 kg/m2 GENERAL: No acute distress. Pleasant and cooperative. SKIN: No rashes, jaundice or suspicious lesions. LUNGS: Clear bilaterally with easy respirations. No crackles. HEART: Regular without murmurs, rubs or gallops. Lab: Results for orders placed in visit on 03/04/14 UA TO CULTUR PRN Result Value Range Type CVMS COLOR Yellow Yellow CLARITY Clear Clear SPECIFIC GRAVITY 1.025 1.003 - 1.035 PH URINE 5.0 5.0 - 8.0 LEUK ESTERASE Neg Neg NITRITE Neg Neg PROTEIN Neg Neg-Trace mg/dL GLUCOSE URINE Neg Neg mg/dL KETONE Neg Neg mg/dL Microscopic Exam: Not Indicated URINE WBC Not Indicated 0 - 8 /HPF URINE RBC Not Indicated 0 - 3 /HPF Urine Culture Reflex Not Indicated PSA Result Value Range PSA 0.44 0.00 - 4.00 ng/mL TESTOSTERONE, TOTAL Result Value Range Testosterone, Total 262 240 - 950 ng/dL ASSESSMENT: Type 2 DM Renal Insufficiency Essential Hypertension PLAN: Discussed recent lab results and answered patient's questions. Patient has had all questions answered and states understanding of the problem. Patient is to continue with the same regime of treatment as it appears to be working. Hold Glyburide if having hypoglycemia, and let us know if this is happening more than 1-2 times weekly. Continue to work on lifestyle modifications. Return in 3 months for fasting lab work. Call or return to clinic with further concerns. documented in this encounter Nursing Notes 03/10/2014 8:00 AM CDT >> JOSTIN MATTSON LPN Fri February 25, 2014 10:40 AM This chart was prepped for visit by Jostin Mattson LPN on 02/25/2014. documented in this encounter Plan of Treatment Not on filedocumented as of this encounter Results (ABNORMAL) BASIC MET PROF (06/14/2014 8:38 AM CDT) P athologist Signature SODIUM 144 (H) 134 - 143 06/14/2014 [facility] mEq/L 9:07 AM CDT [facility] POTASSIUM 5.1 3.4 - 5.1 06/14/2014 [facility] mEq/L 9:07 AM CDT [facility] Chloride 110 99 - 110 06/14/2014 [facility] mEq/L 9:07 AM CDT [facility] CO2 27 19 - 29 06/14/2014 [facility] mEq/L 9:07 AM CDT [facility] BUN 18 5 - 24 06/14/2014 [facility] mg/dL 9:07 AM CDT [facility] Creatinine 1.65 (H) 0.70 - 06/14/2014 [facility] 1.20 mg/dL 9:07 AM CDT [facility] GFR CALC 42 (A) 06/14/2014 [facility] 9:07 AM CDT [facility] Comment: GFR Normal: >60 mL/min/1.73 m2 Calcium 9.7 8.4 - 10.5 mg/dL 06/14/2014 9:07 AM CDT [facility] ANION GAP 7 3 - 15 06/14/2014 9:07 AM CDT [facility] GLUCOSE 136 (H) 70 - 100 mg/dL 06/14/2014 9:07 AM CDT [facility] Specimen Anatomical Collection Method Collection Time Receive d Time (Source) Location / / Volume Laterality 06/14/2014 8:38 AM 4 8:40 CDT AM CDT Brenda Vang PA-C EC CHEMISTRY ORDERABLES Performing Organization Address City/State/ZIP Code Phon e Number [facility] [address] [place], [place] [address] LABORATORY [facility] [address] [place] [address] LABORATORY (ABNORMAL) LIPID PROFILE (06/14/2014 8:38 AM CDT) P athologist Signature Cholesterol 173 114 - 200 06/14/2014 [facility] mg/dL 9:07 AM CDT [facility] Comment: Total Cholesterol Reference Ranges Desirable: ? <200 ?mg/dL Borderline High: ?? 200-239 mg/dL High: ?>239 ?mg/ dL TRIGLYCERIDE 113 10 - 200 mg/dL 06/14/2014 9:07 AM CDT [facility] LABORATORY HDL CHOLESTEROL 39 (L) 40 - 60 mg/dL 06/14/2014 9:07 A M CDT [facility] LABORATORY LDL- CALCULATED 111 mg/dL 06/14/2014 9:07 AM CDT [facility] Comment: LDL Cholesterol Reference Ranges Optimal: ?<100 ? mg/dL Near Optimal: ? 100-129 ??mg/dL Borderline High: ??130-159 ??mg/dL High: ? 160-189 ??mg/dL Very High: ?>189 ? mg/dL Specimen Anatomical Collection Method Collection Time Receive d Time (Source) Location / / Volume Laterality 06/14/2014 8:38 AM 4 8:40 CDT AM CDT Brenda Vang PA-C EC CHEMISTRY ORDERABLES ABN Performing Organization Address City/[facility] Phon e Number [facility] [address] [place] [place] [address] [address] LABORATORY [facility] [address] [place] [address] LABORATORY (ABNORMAL) A1C(HGB AIC) (06/14/2014 8:38 AM CDT) P athologist Signature A1C (HGB AIC) 6.1 (H) 4.0 - 6.0 06/14/2014 [facility] % 9:09 AM CDT [facility] Est Average 128 mg/dL 06/14/2014 [facility] Glucose 9:09 AM CD [facility] Comment: According to ADA guidelines, the estimat ed average glucose (eAG) will be calculated for all HgbA1c results. Specimen Anatomical Collection Method Collection Time Receive d Time (Source) Location / / Volume Laterality 06/14/2014 8:38 AM 4 8:40 CDT AM CDT Brenda Vang PA-C EC CHEMISTRY ORDERABLES ABN Performing Organization Address City/State/ZIP Code Phon e Number [facility] [address] [address] LABORATORY [facility] [address] [place] [address] LABORATORY documented in this encounter Visit Diagnoses Diagnosis Diabetes mellitus type II - Primary Type II or unspecified type diabetes sadia litus without mention of complication, not stated as uncontrolled Renal insufficiency Unspecified disorder of kidney and urete r Essential hypertension, benign documented in this encounter Care Teams Adult Literacy Instructor Relationship Specialty Start Date End Date Richardson Graham MD PCP - General Family Medicine 04/06/12 07/18/14[address] [address] documented as of this encounter
--- OUTSIDE RECORDS SUMMARY | 2022-09-20 12:28 | XMS_ITS | Encounter Summary ---
:1950 Author Organization [employer] Address [address] [address] Phone Care Team Providers Name Role Phone Richardson Graham MD Primary Care Provider Reason for Visit Reason Comments Diabetes Pt reports Glucose readings are high. Started about 15 days ago. Pt stated last eye exam was February 10, stated his eye sight has decreased since. He stated gaining 20 plus pound s over the winter and has not exercised as usual. Readings have been ar ound 260. Encounter Details Date Type Department Care Team Description 02/24/2014 Office Visit [facility] Brenda Burrows Diabetes mellitus type II (Primary Dx); [facility] Carter Essential hypertension, benign; MEDICINE 2023 [facility] Renal insufficiency 2023 [place], [place] [address] [id number] Social History Tobacco Use Types Packs/Day Years Used Date Smoking Tobacco: Never Smokeless Tobacco: Never Alcohol Use Standard Drinks/Week Comments No 0 (1 standard drink = 0.6 oz pure alcoho l) occasional Sex Assigned at Date Recorded Not on file documented as of this encounter Last Filed Vital Signs Vital Sign Reading Time Taken Comments Blood Pressure 115/75 02/24/2014 8:09 AM CDT Pulse 61 02/24/2014 8:09 AM CDT Temperature - - Respiratory Rate - - Oxygen Saturation - - Inhaled Oxygen Concentration - - Weight 113.4 kg (250 lb) 02/24/2014 8:09 AM CDT Height 177.8 cm (5' 10) 02/24/2014 8:09 AM CDT Body Mass Index 35.87 02/24/2014 8:09 AM CDT documented in this encounter Ordered Prescriptions Prescription Sig Dispensed Refills Start Date End Date glyBURIDE (DIABETA) 5 MG Take 1 Tab by mouth 90 Tab 1 10/06/2014 tabletIndications: every morning with Diabetes mellitus, type breakfast. II (HCC) metFORMIN SR osmotic Take 1 Tab by mouth 90 Tab 1 201311/11/2014 (FORTAMET) 1000 MG (OSM) every morning with 24 hour breakfast. Swallow tabletIndications: tablet whole; do not Diabetes mellitus, type crush, divide or II (HCC) chew. documented in this encounter Progress Notes Tennille Beckwith LPN - 02/24/2014 8:08 AM CDT Depression ([place]) Screening Questions 1. During the past month, have you often been bothered by feeling down, depressed, or hopeless? Not at all 2. During the past month, have you often been bothered by little interest or pleasure in doing things? Not at all Chief Complaint Patient presents with ??? Diabetes Pt reports Glucose readings are high. Started about 15 days ago. Pt stated last eye exam was Feb 10 2014, stated his eye sight has decreased since. He stated gaining 20 plus pounds over the winter and has not exercised as usual. Brenda Vang PA-C - 02/24/2014 8:02 AM CDT History of Present Illness: Jose Pabon is a 64 year old male who is here for chronic disease management follow up of DM type2. Over the past 2-3 weeks his blood sugars have been a lot higher, usually around 180, but up to 260 at the highest, the lowest was 115. Currently he is taking Metformin 1000mg bid. Until July he was also taking Glyburide 5mg daily which he tolerated well and worked well for him. He has been very stressed during the tax season and has not been exercising, he does report 20+lb weight gain. He is really focusing on his diet and watching that closely. Last eye exam was 02-10-2014 and he has noticeddecreased vision. He is also wondering about checking his testosterone level again, but he does havean appointment with Dr. Tovar next week to discuss ED, so we will hold off on this until he sees the urologist. Chief Complaint Patient presents with ??? Diabetes Pt reports Glucose readings are high. Started about 15 days ago. Pt stated last eye exam was Feb 10 2014, stated his eye sight has decreased since. He stated gaining 20 plus pounds over the winter and has not exercised as usual. Readings have been around 260. Patient Active Problem List: Other malaise and fatigue[780.79] Essential hypertension, benign[559890] Comment: IMO Update 07/23 Acute pancreatitis[577.0] Diabetes mellitus type II[009418] Comment: DUE:MALB A1C: HGA1C 6.4 08/23/2011 LDL: LDLC 134 08/23/2011 Cr: CREAT 1.02 10/06/2011, GFR >60 10/06/2011 Microalbumin: 21-50 09/03/10 Tobacco use: History S* Renal insufficiency[763213] Comment: IMO Update 07/23 Elevated troponin[483150] Comment: IMO Update 07/23 Healthcare maintenance[791991] Comment: Colon 2001 due 2007 adacel ED (erectile dysfunction)[231572] Past Medical History Diagnosis Date ??? Diabetes [...] Use: No Comment: occasional Review of Systems: Constitutional: positive for weight gain, otherwise feeling well Eyes: positive for: visual change Respiratory: negative for: chest pain; some SOB with exertion Cardiovascular: negative for chest pain or palpitations Gastrointestinal: negative for: abdominal pain Neurological: negative for: weakness, numbness or tingling of hands and numbness or tingling of feet : no urinary changes, polyuria, or nocturia Physical Exam: BP 115/75 Pulse 61 Ht 5' 10 (1.778 m) Wt 250 lb (113.399 kg) BMI 35.87 kg/m2 GENERAL: Pleasant and cooperative. No acute distress. HEENT: Head is atraumatic and normocephalic. Eyes: EOMI, sclera clear, funduscopic exam unremarkable. Ear canals clear. TMs clear with normal landmarks. Nares clear with midline septum. No oral lesions. Throat without erythema or exudate. LUNGS: Clear with easy respirations. No crackles. HEART: Regular rhythm without murmurs, rubs or gallops. EXTREMITIES: No LE edema. Lab: Results for orders placed in visit on 09/15/13 A1C(HGB AIC) Result Value Range A1C (HGB AIC) 5.6 4.0 - 6.0 % Est Average Glucose 114 TESTOST, TOT AND FREE Result Value Range Testosterone, Total, S 207 (*) 240 - 950 ng/dL Testosterone, Free, S 5.6 (*) 9 - 30 ng/dL ASSESSMENT: 1. Diabetes mellitus type II 2. Essential hypertension 3. Renal insufficiency PLAN: - Come in for fasting labs in the next 1-2 weeks, before next follow-up - Patient will restart the Glyburide at 5mg daily, continue on Metformin at 1,000mg daily - We discussed focusing on lifestyle modifications, Pt will maintain current diet and work on exercising regularly - He will discuss concerns with testosterone at the visit with the urologist next week - Follow-up in 2 weeks to recheck diabetes and discuss labs Call or return to clinic with further concerns. documented in this encounter Plan of Treatment Not on filedocumented as of this encounter Results (ABNORMAL) BASIC MET PROF (02/25/2014 8:08 AM CDT) P athologist Signature SODIUM 141 134 - 143 02/25/[address] [facility] mEq/L 8:54 AM CDT [facility] POTASSIUM 5.0 3.4 - 5.1 02/25/[address] [facility] [facility] mEq/L 8:54 AM CDT [facility] Chloride 106 99 - 110 02/25/[address] [facility] [facility] mEq/L 8:54 AM CDT [facility] CO2 26 22 - 29 02/25/[address] [facility] [facility] mEq/L 8:54 AM CDT [facility] BUN 23 5 - 24 02/25/[address] [facility] [facility] mg/dL 8:54 AM T [facility] Creatinine 1.56 (H) 0.70 - 02/25/[address] [facility] [facility] 1.20 mg/dL 8:54 AM CDT [facility] GFR CALC 45 (A) 02/25/2014 [facility] 8:54 AM CDT [facility] Comment: GFR Normal: >60 mL/min/1.73 m2 Calcium 9.5 8.4 - 10.5 mg/dL 02/25/2014 8:54 AM CDT [facility] ANION GAP 9 3 - 15 02/25/2014 8:54 AM CDT [facility] GLUCOSE 169 (H) 70 - 100 mg/dL 02/25/2014 8:54 AM CDT [facility] Comment: Current ADA criteria are ?Normal: 70-99 mg/dL ?Impaired Fasting Glucose: 100-125 mg/dL ?Diabetes Mellitus: at or above 126 mg/dL The diagnosis of diabetes must be confi rmed on a subsequent day by measuring FPG, 2-hr PG or random plasma glucose (if symptoms are present). Specimen Anatomical Collection Method Collection Time Receive d Time (Source) Location / / Volume Laterality 02/25/2014 8:08 AM 4 8:08 CDT AM CDT Brenda Vang PA-C EC CHEMISTRY ORDERABLES Performing Organization Address City/State/ZIP Code Phon e Number [facility] [phone] [id number] LABORATORY [place], [place] LABORATORY (ABNORMAL) LIPID PROFILE (02/25/2014 8:08 AM CDT) P athologist Signature Cholesterol 147 114 - 200 02/25/2014 [facility] mg/dL 8:54 AM CDT [facility] Comment: Total Cholesterol Reference Ranges Desirable: ? <200 ?mg/dL Borderline High: ?? 200-239 mg/dL High: ?>239 ?mg/ dL TRIGLYCERIDE 222 (H) 10 - 200 mg/dL 02/25/2014 8:54 AM CDT [facility] Comment: ?Triglyceride If patient is non-fasting, the result of the triglyceride is invalid. ?? Triglyceride Reference Ranges ?? Normal: ?10-200 mg/d L ?? Borderline High: ??150-200 mg/dL ?? High: ? 201-499 mg/d L ?? Very High: ? =500 ?mg/ dL HDL CHOLESTEROL 26 (L) 40 - 60 mg/dL 02/25/2014 8:54 A M CDT [facility] LDL- CALCULATED 77 mg/dL 02/25/2014 8:54 AM CDT [facility] Comment: LDL Cholesterol Reference Ranges Optimal: ?<100 ? mg/dL Near Optimal: ? 100-129 ??mg/dL Borderline High: ??130-159 ??mg/dL High: ? 160-189 ??mg/dL Very High: ?>189 ? mg/dL Specimen Anatomical Collection Method Collection Time Receive d Time (Source) Location / / Volume Laterality 02/25/2014 8:08 AM 4 8:08 CDT AM CDT Brenda Vang PA-C EC CHEMISTRY ORDERABLES ABN Performing Organization Address City/State/ZIP Code Phon e Number [facility] [phone] [id number] LABORATORY [place], [place] LABORATORY (ABNORMAL) A1C(HGB AIC) (02/25/2014 8:08 AM CDT) athologist Signature A1C (HGB AIC) 9.6 (H) 4.0 - 6.0 02/25/2014 ST. % 9:30 AM CDT [facility] Est Average 229 mg/dL 02/25/2014 [facility] Glucose 9:[address] [facility] Comment: According to ADA guidelines, the estimat ed average glucose (eAG) will be calculated for all HgbA1c results. Specimen Anatomical Collection Method Collection Time Receive d Time (Source) Location / / Volume Laterality 02/25/2014 8:08 AM 4 8:08 CDT AM CDT Brenda Vang PA-C EC CHEMISTRY ORDERABLES ABN Performing Organization Address City/State/ZIP Code Phon e Number [facility] [phone] [place] [address] LABORATORY [place], [place] LABORATORY documented in this encounter Visit Diagnoses Diagnosis Diabetes mellitus type II - Primary Type II or unspecified type diabetes sadia litus without mention of complication, not stated as uncontrolled Essential hypertension, benign Renal insufficiency Unspecified disorder of kidney and urete r documented in this encounter Discontinued Medications Medication Sig Discontinue Reason Start Date End Date ranitidine (ZANTAC) 150 Take 1 Tab by mouth Patient quit taking 01/11/2014 MG tablet two times a day. metFORMIN (GLUCOPHAGE) Take 0.5 Tabs by 12/20/2013 0 02/24/2014 1000 MG tablet mouth one time a day. Take with food. documented as of this encounter Care Teams Lead Javascript Engineer Relationship Specialty Start Date End Date Richardson Graham MD PCP - General Family Medicine 04/06/12 07/18/14[address] [id number] documented as of this encounter
--- OUTSIDE RECORDS SUMMARY | 2022-09-20 12:29 | XMS_ITS | Encounter Summary ---
:1950 Author Organization [employer] Address [address] [address] Phone Care Team Providers Name Role Phone Richardson Graham MD Primary Care Provider Reason for Visit Reason Onset Date Comments Appointment 11/18/2011 Encounter Details Date Type Department Care Team Description 11/18/2011 Telephone [facility] Oren Robbins LPN Appointment MEDICINE 2023 [place], [place] [phone] Social History Tobacco Use Types Packs/Day Years Used Date Smoking Tobacco: Never Smokeless Tobacco: Never Alcohol Use Standard Drinks/Week Comments No 0 (1 standard drink = 0.6 oz pure alcoho l) occasional Sex Assigned at Date Recorded Not on file documented as of this encounter Miscellaneous Notes Telephone Encounter - Tanisha Robbins LPN - 11/18/2011 9:10 AM CST Spoke with pt. Appt arranged. ENTICE COSMETOLOGIST Telephone Encounter - Tanisha Robbins LPN - 11/18/2011 9:10 AM CST Message copied by TANISHA ROBBINS I on FriNov 18, 2011 9:10 AM ------ Message from: MELO MAHER Created: FriNov 18, 2011 8:44 AM Please call work# [phone]--thinks pancreatitis is back--he vomited Friday and had Severe pain last night-its mild today. 2-6 8:20 am ENTICE COSMETOLOGIST Telephone Encounter - Tanisha Robbins LPN - 11/18/2011 9:10 AM CST Message copied by TANISHA ROBBINS I on FriNov 18, 2011 9:10 AM ------ Message from: MELO MAHER Created: FriNov 18, 2011 8:44 AM Please call work# [phone]--thinks pancreatitis is back--he vomited Friday and had Severe pain last night-its mild today. 2-6 8:20 am ENTICE COSMETOLOGIST Telephone Encounter - Tanisha Robbins LPN - 11/18/2011 9:08 AM CST Message copied by TANISHA ROBBINS I on FriNov 18, 2011 9:08 AM ------ Message from: MELO MAHER Created: FriNov 18, 2011 8:44 AM Please call work# [phone]--thinks pancreatitis is back--he vomited Friday and had Severe pain last night-its mild today. 2-6 8:20 am ENTICE COSMETOLOGIST documented in this encounter Plan of Treatment Not on filedocumented as of this encounter Visit Diagnoses Not on filedocumented in this encounter Care Teams Top Dyeing Machine Loader Relationship Specialty Start Date End Date Richardson Graham MD PCP - General Family Medicine 11/18/11 03/03/12[address] [id number] documented as of this encounter
--- OUTSIDE RECORDS SUMMARY | 2022-09-20 12:29 | XMS_ITS | Encounter Summary ---
:1950 Author Organization [employer] Address [address] [address] Phone Care Team Providers Name Role Phone Unavailable Primary Care Provider Unavailable Reason for Visit Reason Comments Follow Up hospital, 10/07/11 Encounter Details Date Type Department Care Team Description 10/17/2011 Office Visit [facility] Richardson Graham MD Diabetes mellitus type II; [facility] [place] [address] Acute pancreatitis; 2023 [place] [phone] Social History Tobacco Use Types Packs/Day Years Used Date Smoking Tobacco: Never Smokeless Tobacco: Never Alcohol Use Standard Drinks/Week Comments No 0 (1 standard drink = 0.6 oz pure alcoho l) occasional Sex Assigned at Date Recorded Not on file documented as of this encounter Last Filed Vital Signs Vital Sign Reading Time Taken Comments Blood Pressure 120/68 10/17/2011 11:19 AM LIFE SCIENCE TECHNICAL OFFICER Pulse 70 10/17/2011 11:19 AM LIFE SCIENCE TECHNICAL OFFICER Temperature - - Respiratory Rate - - Oxygen Saturation 96% 10/17/2011 11:19 AM room air, no SOB LIFE SCIENCE TECHNICAL OFFICER Inhaled Oxygen Concentration - - Weight 113.9 kg (251 lb) 10/17/2011 11:19 AM LIFE SCIENCE TECHNICAL OFFICER Height 177.8 cm (5' 10) 10/17/2011 11:19 AM stated hei ght LIFE SCIENCE TECHNICAL OFFICER Body Mass Index 36.01 10/17/2011 11:19 AM LIFE SCIENCE TECHNICAL OFFICER documented in this encounter Progress Notes Richardson Graham MD - 10/19/2011 2:[address] [facility] Patient Name: ALINE PABON Date of Service: 10/17/2011 : 1950 Age: 61Y Sex: Alicia BARTON Site MRN: Patient Loc/Room #: BRC FP/ Provider: Richardson Graham MD, Family Practice OFFICE NOTE SITE: [facility] PROBLEMS: 1. Pancreatitis. 2. Diabetes. 3. Hypertension. SUBJECTIVE: Patient states overall he is much improved. He was initially hospitalized a few weeks ago with pancreatitis, felt to be likely due to gallbladder disease. He had his gallbladder out, however, he returned just at Terence time with again acute pancreatitis. The etiology remained uncertain, thought to be idiopathic. He is scheduled for an upcoming endoscopic ultrasound of the bile duct andpancreatic duct and this is scheduled with Dr. Cottrell. He was rehospitalized and placed at bowel rest. Sugars were running a little bit high at that time; he was placed on a short course of sliding scale insulin. He has recovered now. His appetite is back. He is improving. His bowels are moving regularly, voiding without difficulty. No chest pain or shortness of breath. His activity level is slowly improving. His sugars have been running a little on the high side, 130 to 160. He is on metformin 1000 mg b.i.d. and had been at one time on Byetta. He is wondering if he should go back on the Byetta. We had stopped this last summer as his blood sugars had been running excellent. He had lost some weight at the time. He did have a little constipation in the past. This has resolved. His blood pressure, although it had been a little bit high, we added the Norvasc 5 mg daily. His blood pressure is down nicely now. He had been stopped on his lisinopril on his original hospitalization for pancreatitis, thinking that that may be a contributing factor. PFSH including medications updated in the EHR. REVIEW OF SYSTEMS: No difficulty at this time with chest pain or shortness of breath. Bowels are regular, voiding without difficulty. No focal neurologic changes. Appetite is good. EXAM: General - patient is alert and orientated. Vitals - weight is 252 which is stable. He is down from 12/15 when he was 261. Blood pressure is 110/70, pulse 72 and regular. Lungs - clear. Heart is 70 and regular. Abdomen - soft, nontender. Most recent diabetic review indicates in August he had an A1c of 6.4 and LDL is 134. I did review his lab work that was done on 10/06. His calcium is a little low at 8.3, but consistentwith albumin of 2.7. Hemoglobin of 10.9. I think it was low because of the significant illness. His protein a little low, it would be consistent with the pancreatitis. ASSESSMENT: 1. Diabetes. We talked about additional medication. We checked on Byetta, but there is a list of this as some reported cases of pancreatitis associated and I think we better not go there. We could consider Amaryl. We looked this up and we could consider low dose Lantus, however, his sugars are actually quite reasonable. We are going to check an A1c and it has been 2 months and see if he is reasonable. If that is the case, I think do not change medication and we will again check an A1c in 2-3 months and see if his sugars are remaining stable with his current regimen. If his A1c has gone way up then I think adding Amaryl or low dose Lantus. If he starts running sugars that are consistently high, in the 180 range, we should do so as well. But I think at 150 temporarily is reasonable considering everything that has happened to him and the risk of medication. 2. Pancreatitis, now resolved. The cause remains uncertain. He has had his gallbladder removed. It was felt to be most likely idiopathic. His triglycerides were not extremely high. On 08/2011 triglycerides were 141. Plan to just follow and continue being careful with his diet. 3. Hypertension, stable on current medications. PLAN: We will check a hemoglobin and an A1c today and contact him with those results. ELECTRONICALLY SIGNED Richardson Graham MD [facility] cc: /[facility] Job ID: [id number] /smhts Document ID: [id number] SCIENCE TECHNICAL OFFICER Richardson Graham MD - 10/17/2011 12:38 PM CST This note has been dictated. SCIENCE TECHNICAL OFFICER Beryl Mendoza LPN - 10/17/2011 11:19 AM CST Depression ([place]) Screening Questions 1. During the past month, have you often been bothered by feeling down, depressed, or hopeless? Not at all 2. During the past month, have you often been bothered by little interest or pleasure in doing things? Not at all Fall Risk No SCIENCE TECHNICAL OFFICER documented in this encounter Plan of Treatment Not on filedocumented as of this encounter Procedures Procedure Name Priority Date/Time Associated Diagnosis Comme nts HEMOGLOBIN Routine 10/17/2011 12:13 PM Anemia Results for this LIFE SCIENCE TECHNICAL OFFICER procedure are i n the results section . HEMOGLOBIN A1C Routine 10/17/2011 12:13 PM Diabetes mellitus R esults for this LIFE SCIENCE TECHNICAL OFFICER type II procedure are i n the results section . documented in this encounter Results HGB (10/17/2011 12:13 PM LIFE SCIENCE TECHNICAL OFFICER) P athologist Signature HGB 13.2 13.0 - 17.0 [place] g/dL LABORATORY Specimen Anatomical Collection Method Collection Time Receive d Time (Source) Location / / Volume Laterality 10/17/2011 12:13 10/17/2011 PM LIFE SCIENCE TECHNICAL OFFICER 12:35 PM LIFE SCIENCE TECHNICAL OFFICER Richardson Graham MD EC HEMATOLOGY ORDERABLES Performing Organization Address City/State/ZIP Code Phon e Number [facility] (ABNORMAL) A1C(HGB AIC) (10/17/2011 12:13 PM LIFE SCIENCE TECHNICAL OFFICER) P athologist Signature A1C (HGB AIC) 6.7 (H) 0.0 - 6.0 [place] % [facility] Est Average 146 mg/dL [facility] Glucose LAB[facility] Specimen Anatomical Collection Method Collection Time Receive d Time (Source) Location / / Volume Laterality 10/17/2011 12:13 10/17/2011 PM LIFE SCIENCE TECHNICAL OFFICER 12:35 PM LIFE SCIENCE TECHNICAL OFFICER Richardson Graham MD EC CHEMISTRY ORDERABLES ABN Performing Organization Address City/State/ZIP Code [facility] e Number [facility] documented in this encounter Visit Diagnoses Diagnosis Diabetes mellitus type II Type II or unspecified type diabetes sadia litus without mention of complication, not stated as uncontrolled Acute pancreatitis Anemia Anemia, unspecified documented in this encounter Discontinued Medications Medication Sig Discontinue Reason Start Date End Date omega-3 fatty acid (FISH Take 1 Cap by mouth Other 1 10/17/2011 OIL) 1000 MG capsule one time a day. documented as of this encounter
--- OUTSIDE RECORDS SUMMARY | 2022-09-20 12:29 | XMS_ITS | Encounter Summary ---
:1950 Author Organization [employer] Address [address] [address] Phone Care Team Providers Name Role Phone Richardson Graham MD Primary Care Provider Encounter Details Date Type Department Care Team Description 03/02/2012 Abstract [facility] Andi Zapata, [facility] [phone] [place], [place] [phone] Social History Tobacco Use Types Packs/Day Years Used Date Smoking Tobacco: Never Smokeless Tobacco: Never Alcohol Use Standard Drinks/Week Comments No 0 (1 standard drink = 0.6 oz pure alcoho l) occasional Sex Assigned at Date Recorded Not on file documented as of this encounter Plan of Treatment Not on filedocumented as of this encounter Results (ABNORMAL) A1C(HGB AIC) (03/04/2012 7:43 AM CDT) P athologist Signature A1C (HGB AIC) 6.5 (H) 4.0 - 6.0 [facility] % LABORATORY Est Average 140 mg/dL [facility] Glucose LABORATORY Specimen Anatomical Collection Method Collection Time Receive d Time (Source) Location / / Volume Laterality 03/04/2012 7:43 AM 2 7:44 CDT AM CDT Richardson Graham MD EC CHEMISTRY ORDERABLES ABN Performing Organization Address City/State/ZIP Code Phon e Number [facility] documented in this encounter Visit Diagnoses Diagnosis Type II or unspecified type diabetes sadia litus without mention of complication, not stated as uncontrolled - Primary documented in this encounter Care Teams Reaming Machine Operator Relationship Specialty Start Date End Date Richardson Graham MD PCP - General Family Medicine 11/18/11 03/03/12[address] [address] documented as of this encounter
--- OUTSIDE RECORDS SUMMARY | 2022-09-20 12:29 | XMS_ITS | Encounter Summary ---
:1950 Author Organization [facility] Address [address] [address] Phone Care Team Providers Name Role Phone Unavailable Primary Care Provider Unavailable Reason for Visit Reason Comments Follow Up Hospital Encounter Details Date Type Department Care Team Description 10/17/2011 Office Visit [facility] Jovanni Cottrell, Acute pancreatitis Clinic GI (Primary Dx) 2023 [facility] [address] [address] [place], [place] [address] Social History Tobacco Use Types Packs/Day Years Used Date Smoking Tobacco: Never Smokeless Tobacco: Never Alcohol Use Standard Drinks/Week Comments No 0 (1 standard drink = 0.6 oz pure alcoho l) occasional Sex Assigned at Date Recorded Not on file documented as of this encounter Last Filed Vital Signs Vital Sign Reading Time Taken Comments Blood Pressure 110/70 10/17/2011 10:27 AM CANDY ATTENDANT Pulse 72 10/17/2011 10:27 AM CANDY ATTENDANT Temperature - - Respiratory Rate - - Oxygen Saturation - - Inhaled Oxygen Concentration - - Weight 114.3 kg (252 lb) 10/17/2011 10:27 AM CANDY ATTENDANT Height 177.8 cm (5' 10) 10/17/2011 10:27 AM CANDY ATTENDANT Body Mass Index 36.16 10/17/2011 10:27 AM CANDY ATTENDANT documented in this encounter Progress Notes Jovanni Cottrell MD - 10/17/2011 11:15 AM CST [employer] Patient Name: ALINE PABON Date of Service: 10/17/2011 : 1950 Age: 61Y Sex: M DC Site MRN: Patient Loc/Room #: [facility] GI/ Provider: Jovanni Cottrell MD, Gastroenterology OFFICE NOTE SITE: [facility] GI CLINIC FOLLOWUP: CHIEF COMPLAINT: I am doing well. HISTORY OF PRESENT ILLNESS: Mr Pabon is a 61-year-old male with 2nd hospitalization the end of September for recurrent idiopathic acute pancreatitis. He is status post cholecystectomy after the first bout. Both lisinopril and omeprazole had been on hold because they were started just before his 1st att ack. Since discharge he has been doing well with a low-fat diet. Minimal abdominal pain. No nausea or vomiting. Bowel movements are normal. No fevers or chills. MEDICATIONS: 1. Metoprolol. 2. Amlodipine. 3. Zinc. 4. Ascorbic acid. 5. Fish oil is on hold. 6. Lisinopril on hold. 7. Omeprazole on hold. 8. Metformin. 9. Cialis. 10. Aspirin 81 mg daily. 11. Multivitamin. REVIEW OF SYSTEMS: No fevers or chills. No weight loss. He has been diabetic for 3 years. PHYSICAL EXAM: Weight of 252, blood pressure of 110/70, pulse of 72. Abdomen - positive bowel sounds. Soft, nontender, nondistended. ASSESSMENT AND PLAN: 1. Recurrent acute idiopathic pancreatitis. Arrangements will be made for endoscopic ultrasound withDr Richard Awan, with [facility]. A copy of my consult is made for the patient to hand carry. His MRCP will be sent to Dr Awan on a disc for his review. Continue low-fat diet. 2. GERD. He has been having little trouble since the omeprazole got put on hold. Recommended p.r.n. [id number]-efd-moarwtt antacid until we sort things out. ELECTRONICALLY SIGNED Jovanni Cottrell MD [facility] Gastroenterology cc: /JOHNSON Job ID: [id number] /khtts Document ID: [id number] Y ATTENDANT Jovanni Cottrell MD - 10/17/2011 10:33 AM CST This note has been dictated. Y ATTENDANT documented in this encounter Plan of Treatment Not on filedocumented as of this encounter Visit Diagnoses Diagnosis Acute pancreatitis - Primary documented in this encounter Discontinued Medications Medication Sig Discontinue Reason Start Date End Date omeprazole magnesium Take 1 Tab by mouth Other 09/20/2011 10/17/2011 delayed release one time a day. (PRILOSEC OTC) 20 MG Tablet should be tablet swallowed whole; do not crush or chew. documented as of this encounter
--- OUTSIDE RECORDS SUMMARY | 2022-09-20 12:29 | XMS_ITS | Encounter Summary ---
:1950 Author Organization [employer] [facility] Address [address] [address] Phone Care Team Providers Name Role Phone Richardson Graham MD Primary Care Provider Reason for Visit Reason Onset Date Comments Refill Request 12/18/2011 Encounter Details Date Type Department Care Team Description 12/18/2011 Refill [employer]-Mirela Montenegro LPN Refill Request FAMILY MEDICINE [id number] [place], [place] [address] Social History Tobacco Use Types Packs/Day Years Used Date Smoking Tobacco: Never Smokeless Tobacco: Never Alcohol Use Standard Drinks/Week Comments No 0 (1 standard drink = 0.6 oz pure alcoho l) occasional Sex Assigned at Date Recorded Not on file documented as of this encounter Ordered Prescriptions Prescription Sig Dispensed Refills Start Date End Date metoprolol tartrate Take 1 Tab by mouth 180 Tab 3 012 01/02/2013 (LOPRESSOR) 50 MG tablet two times a day. documented in this encounter Plan of Treatment Not on filedocumented as of this encounter Visit Diagnoses Not on filedocumented in this encounter Discontinued Medications Medication Sig Discontinue Reason Start Date End Date metoprolol tartrate Take 1 Tab by mouth 10/07/2011 0 12/18/2011 (LOPRESSOR) 50 MG tablet two times a day. documented as of this encounter Care Teams Ship Yard Electrical Person Relationship Specialty Start Date End Date Richardson Graham MD PCP - General Family Medicine 11/18/11 03/03/12[address] [address] documented as of this encounter
--- OUTSIDE RECORDS SUMMARY | 2022-09-20 12:29 | XMS_ITS | Encounter Summary ---
:1950 Author Organization [facility] [facility] Address [address] [address] Phone Care Team Providers Name Role Phone Richardson Graham MD Primary Care Provider Reason for Visit Reason Onset Date Comments Refill Request 12/10/2011 Encounter Details Date Type Department Care Team Description 12/10/2011 Refill [employer]-Mirela Montenegro LPN Refill Request FAMILY MEDICINE [phone] [place], [place] [address] Social History Tobacco Use Types Packs/Day Years [...] on filedocumented in this encounter Care Teams Investment Advisor Relationship Specialty Start Date End Date Richardson Graham MD PCP - General Family Medicine 11/18/11 03/03/12[address] [place] [address] documented as of this encounter
--- OUTSIDE RECORDS SUMMARY | 2022-09-20 12:29 | XMS_ITS | Encounter Summary ---
:1950 Author Organization [employer] [facility] Address [address] [address] Phone Care Team Providers Name Role Phone Richardson Graham MD Primary Care Provider Reason for Visit Reason Comments Refill Request Encounter Details Date Type Department Care Team Description 03/21/2012 Refill [facility] Olivia Graham MD Refill Request FAMILY MEDICINE [address] 2023 [facility] LUCERO ELIAS [address] [place] [address] [phone] Social History Tobacco Use Types Packs/Day Years Used Date Smoking Tobacco: Never Smokeless Tobacco: Never Alcohol Use Standard Drinks/Week Comments No 0 (1 standard drink = 0.6 oz pure alcoho l) occasional Sex Assigned at Date Recorded Not on file documented as of this encounter Ordered Prescriptions Prescription Sig Dispensed Refills Start Date End Date betamethasone APPLY TO AFFECTED 45 g 2 03/21/201212/12 dipropionate 0.05 % cream AREA TWICE DAILY NEEDED documented in this encounter Plan of Treatment Not on filedocumented as of this encounter Visit Diagnoses Not on filedocumented in this encounter Discontinued Medications Medication Sig Discontinue Reason Start Date End Date betamethasone Apply topically as 09/17/2011 03/21/20 12 dipropionate 0.05 % needed for Other. cream Apply sparingly. documented as of this encounter Care Teams Ux Designer Relationship Specialty Start Date End Date Richardson Graham MD PCP - General Family Medicine 03/04/12 04/05/12[address] [address] documented as of this encounter
--- OUTSIDE RECORDS SUMMARY | 2022-09-20 12:29 | XMS_ITS | Encounter Summary ---
:1950 Author Organization [facility] [employer] [facility] Address [address] [address] Phone Care Team Providers Name Role Phone Richardson Graham MD Primary Care Provider Reason for Visit Reason Comments Swimmers Itch since friday; patient is a type II diabetic Encounter Details Date Type Department Care Team Description 04/06/2012 Office Visit [facility] (Primary Dx) URGENT CARE [address] [place], [place] [id number] Social History Tobacco Use Types Packs/Day Years Used Date Smoking Tobacco: Never Smokeless Tobacco: Never Alcohol Use Standard Drinks/Week Comments No 0 (1 standard drink = 0.6 oz pure alcoho l) occasional Sex Assigned at Date Recorded Not on file documented as of this encounter Last Filed Vital Signs Vital Sign Reading Time Taken Comments Blood Pressure 126/82 04/06/2012 4:56 PM CDT Pulse 69 04/06/2012 4:56 PM CDT Temperature 36.4 ??C (97.5 ??F) 04/06/2012 4:56 PM CDT Respiratory Rate - - Oxygen Saturation - - Inhaled Oxygen Concentration - - Weight 120.2 kg (265 lb) 04/06/2012 4:56 PM CDT Height 177.8 cm (5' 10) 04/06/2012 4:56 PM CDT Body Mass Index 38.02 04/06/2012 4:56 PM CDT documented in this encounter Patient Instructions Patient InstructionsJack Fernandez MD - 04/06/2012 5:14 PM CDT Keflex Triamcinolone cream Benadryl Follow up with regular provider if symptoms change, worsen or persist. documented in this encounter Ordered Prescriptions Prescription Sig Dispensed Refills Start Date End Date triamcinolone acetonide Apply topically two 85.2 g 0 04/08/2012 (KENALOG) 0.1 % times a day. creamIndications: Rash cephALEXin (KEFLEX) 500 Take 1 Cap by mouth 30 Cap 0 04/16/2012 MG capsuleIndications: three times a day Rash for 10 days. documented in this encounter Progress Notes Jack Fernandez MD - 04/06/2012 5:17 PM CDT HPI: Jose Pabon is a 62 year old male who presents to URGENT CARE 04/06/2012 for evaluation of a red and pruritic. diffuse skin rash on the right and left legs for 2 day and is unchanged. He has been swimming in a local [place] and did not towel off after getting out. Lesions are pruritic, none and none. Patient describes the rash as mild. PMH: Past Medical History Diagnosis Date ??? Diabetes mellitus type II ??? Obstructive sleep apnea ??? Hypertension ??? Obesity ??? Pancreatitis, acute 09/22/2011 ??? Eczema Hands and elbows PAST SURGICAL HISTORY: Past Surgical History Procedure Date ??? Knee arthroscopy Both knees; ACL repair left; Meniscus on the right ??? Lap,cholecystectomy 09/25/11 with cholangioram ??? Colonoscopy 07/16/02 10 yr f/u ALLERGIES: Penicillins MEDICATIONS: Current Outpatient Prescriptions Medication Sig ??? cephALEXin (KEFLEX) 500 MG capsule Take 1 Cap by mouth three times a day for 10 days. ??? triamcinolone acetonide (KENALOG) 0.1 % cream Apply topically two times a day. ??? betamethasone dipropionate 0.05 % cream APPLY TO AFFECTED AREA TWICE DAILY NEEDED ??? metoprolol tartrate (LOPRESSOR) 50 MG tablet Take 1 Tab by mouth two times a day. ??? amLODIPine (NORVASC) 5 MG tablet Take 1 Tab by mouth one time a day. ??? ranitidine (ZANTAC) 150 MG tablet Take 1 Tab by mouth two times a day. ??? CIALIS 20 MG tablet TAKE ONE TABLET BY MOUTH NEEDED ??? Zinc 50 MG TABS Take 1 Tab by mouth one time a day. ??? ascorbic acid (VITAMIN C) 500 MG tablet Take 1 Tab by mouth as needed (cold sysmptoms). ??? metFORMIN (GLUCOPHAGE) 1000 MG tablet TAKE ONE TABLET BY MOUTH TWICE DAILY ??? CHILDRENS ASPIRIN 81 MG chewable tablet 81 mg, ORAL, DAILY, Refills: 0, 02/06/09 18:34:01, Substitution Permitted, current med (Hx) ??? multivitamin (TAB-A-LISA) TABS 1 tablet, ORAL, DAILY, Refills: 0, 02/06/09 18:34:57, Substitution Permitted, current med (Hx) SOCIAL HISTORY: History Substance Use Topics ??? Smoking status: Never Smoker ??? Smokeless tobacco: Never Used ??? Alcohol Use: No occasional ROS: All other systems reviewed and found to be negative PHYSICAL EXAM: VITALS:BP 126/82 Pulse 69 Temp(Src) 36.4 ??C (97.5 ??F) (Tympanic) Ht 5' 10 (1.778 m) Wt 265 lb (120.203 kg) BMI 38.02 kg/m2 GENERAL: Pleasant, in no acute distress SKIN: The rash is papule, located on the right and left upper legs and lower legs. There are multiple Size of lesion(s) 2 mm. There does not appear to be any pattern to the rash and there is no sign ofsecondary infection. HYDRATION: well hydrated HEENT: head is normocephalic, pupils equal, round, reactive to light and accomodation, ocular movement intact,tympanic membranes clear, oropharynx, uvula midline, no lesions or exudate NECK: supple, no lymphadenopathy,no thyromegally, trachea midline PULMONARY: clear CV: regular rate and rhythm, normal heart sounds, no murmur, rub or gallops EXT: no cyanosis, clubbing or edema ASSESSMENT: Swimmer's Itch, ? Secondary infection PLAN: keflex, Triamcinolone cream 1. Please refer to the handout that you were given. 2. Follow up with your regular provider in 7 to 10 days for a recheck. 3. Return to Urgent Care, the Emergency Department, or see your regular provider if you feel that your symptoms are changing or getting worse. 4. Patient /Parent verbalizes understanding and agreement with plan. Kimmie Botello - 04/06/2012 4:56 PM CDT Fall Risk No documented in this encounter Plan of Treatment Not on filedocumented as of this encounter Visit Diagnoses Diagnosis Rash - Primary Rash and other nonspecific skin eruption documented in this encounter Care Teams Furniture Stainer Relationship Specialty Start Date End Date Richardson Graham MD PCP - General Family Medicine 04/06/12 07/18/14[address] [address] documented as of this encounter
--- OUTSIDE RECORDS SUMMARY | 2022-09-20 12:29 | XMS_ITS | Encounter Summary ---
:1950 Author Organization [employer] Address [address] [address] Phone Care Team Providers Name Role Phone Richardson Graham MD Primary Care Provider Reason for Visit Reason Onset Date Comments Refill Request 05/18/2012 Encounter Details Date Type Department Care Team Description 05/18/2012 Refill [facility] Phillip Lacy LPN Refill Request MEDICINE 2023 [place], [place] [address] Social History Tobacco Use Types Packs/Day Years Used Date Smoking Tobacco: Never Smokeless Tobacco: Never Alcohol Use Standard Drinks/Week Comments No 0 (1 standard drink = 0.6 oz pure alcoho l) occasional Sex Assigned at Date Recorded Not on file documented as of this encounter Ordered Prescriptions Prescription Sig Dispensed Refills Start Date End Date triamcinolone acetonide See above directions 80 g 2 10/26/2012 (KENALOG) 0.1 % cream documented in this encounter Plan of Treatment Not on filedocumented as of this encounter Visit Diagnoses Not on filedocumented in this encounter Discontinued Medications Medication Sig Discontinue Reason Start Date End Date triamcinolone acetonide APPLY SPARINGLY 04/08/2012 0 05/18/2012 (KENALOG) 0.1 % cream TWICE DAILY documented as of this encounter Care Teams Rehabilitation Construction Specialist Relationship Specialty Start Date End Date Richardson Graham MD PCP - General Family Medicine 04/06/12 07/18/14[address] [address] documented as of this encounter
--- OUTSIDE RECORDS SUMMARY | 2022-09-20 12:29 | XMS_ITS | Encounter Summary ---
:1950 Author Organization [email or web address] Address [address] [address] Phone Care Team Providers Name Role Phone Richardson Graham MD Primary Care Provider Reason for Visit Reason Comments Chest Pain Auth/Cert (Routine) - Closed Specialty Diagnoses / Procedures Referred By Contact Refer red To Contact Diagnoses Acute pancreatitis pancreatitis pancreatitis [address] Medical [address] [place] [address] [place] [address] Referral ID Status Reason Start Date Expiration Date Visits Requ ested Visits Authorized [id number] Closed 1 1 Encounter Details Date Type Department Care Team Description 10/02/2011 - Hospital Encounter [facility] Jessica Storm MD [address] [place] [id number] Acute pancreatitis; 10/07/2011 [facility] [place] [address] [place] [address] Diabetes mellitus (HCC); [address] [place] [address] Benjamin Subramanian MD [address] [place] [id number] Hypertension; [place] [address] Chest pain; [phone] Diabetes mellit type II; Essential hyper tension, benign Social History Tobacco Use Types Packs/Day Years Used Date Smoking Tobacco: Never Smokeless Tobacco: Never Alcohol Use Standard Drinks/Week Comments No 0 (1 standard drink = 0.6 oz pure alcoho l) occasional Sex Assigned at Date Recorded Not on file documented as of this encounter Last Filed Vital Signs Vital Sign Reading Time Taken Comments Blood Pressure 160/83 10/07/2011 10:26 AM SUPPORTABILITY ENGINEER Pulse 66 10/07/2011 10:26 AM SUPPORTABILITY ENGINEER Temperature 36.8 ??C (98.2 ??F) 10/07/2011 10:26 AM SUPPORTABILITY ENGINEER Respiratory Rate 18 10/07/2011 10:26 AM SUPPORTABILITY ENGINEER Oxygen Saturation 93% 10/07/2011 10:26 AM SUPPORTABILITY ENGINEER Inhaled Oxygen Concentration - - Weight 115.2 kg (254 lb) 10/02/2011 12:47 PM SUPPORTABILITY ENGINEER Height 177.8 cm (5' 10) 10/02/2011 12:47 PM SUPPORTABILITY ENGINEER Body Mass Index 36.45 10/02/2011 12:47 PM SUPPORTABILITY ENGINEER documented in this encounter Discharge Summaries Valerie Swanson MD - 10/08/2011 8:46 AM CST ORTABILITY ENGINEER Sam Esparza MD - 10/07/2011 10:37 AM CST [facility] AMENDED REPORT Patient Name: ALINE SHINE Date of Admission: 10/02/2011 Date of Discharge: : 1950 Age: 61Y Sex: M DC Site MRN: Patient Loc/Room #: [id number]/6021 Provider: Sam Esparza MD, Family Practice DISCHARGE SUMMARY SITE: [facility] DATE OF ADMISSION: 10/02/2011 DATE OF DISCHARGE: 10/07/2011 REASON FOR ADMISSION: Abdominal pain. DISCHARGE DIAGNOSES: Idiopathic pancreatitis, possibly secondary to recent cholecystectomy, resolving. Benign essential hypertension. Type 2 diabetes. Obstructive sleep apnea. Eczema. PERTINENT DIAGNOSTIC STUDIES AND PROCEDURES DURING THIS HOSPITALIZATION: MRCP of the abdomen showed no intrahepatic or extrahepatic biliary ductal dilatation. No filling defects. The pancreas had some mild inflammatory changes, otherwise looked quite good. CT MRI TECHNOLOGIST ON THE CASE: Dr. Jovanni Cottrell of Gastroenterology. HOSPITAL COURSE: Mr. Shine is a pleasant 61-year-old gentleman who underwent a laparoscopic cholecystectomy on 09/25/2011. Since that time he has had 2 episodes of pancreatitis. He was admitted with worsening epigastric pain. This improved with simple conservative measures, including bowel rest and IV fluids. Today he says he feels great. He has absolutely no pain, and he would like to go home. He has been slowly advancing his diet. I appreciate the input of Gastroenterology. Their plan is to see him back in a couple of weeks and arrange enteroscopic ultrasound of the pancreas in the future. Mr. Shine also had somewhat high blood pressure here during this hospitalization. Metoprolol was increased up to 50 mg twice a day. I am adding amlodipine 5 mg daily on discharge. I am avoiding diuretics and NATHEN inhibitors due to possible cause of pancreatitis. DISCHARGE EXAMINATION: Vitals - blood pressure 170/92, pulse 62 and regular, and temp 98.4. Saturations 93% on room air. General - this is a pleasant 61-year-old gentleman. He is walking around the exam room in no acute distress. Lungs - clear to auscultation bilaterally. Heart - regular rate and rhythm without murmur. Abdomen - soft and nontender. Positive bowel sounds. No organomegaly or mass. Extremities - warm and well perfused. DISCHARGE INSTRUCTIONS: 1. The patient will be discharge home today. 2. He will advance his diet very slowly. I advised a low-fat diet as well. 3. He will follow up with Dr. Richardson Graham in 2 weeks or so for blood pressure followup and hospital followup. 4. He will follow up with Dr. Cottrell in 2 weeks for arrangement of an endoscopic ultrasound of the pancreas in the future. DISCHARGE MEDICATIONS: 1. Amlodipine 5 mg daily (this was just started on discharge). 2. Metoprolol 50 mg twice daily (this was increased during this hospitalization). 3. Metformin 1,000 mg twice a day. 4. Zyrtec as needed for allergies. 5. Aspirin 81 mg daily. ADDENDUM: Greater than 35 minutes was spent with this discharge, more than 50% in counseling, coordination of care, and coordination of discharge care. ELECTRONICALLY SIGNED Sam Esparza MD [facility] cc: MD Richardson Mueller MD /JR Job ID: [id number] Document ID: [id number] A: 10/08/2011 10:03/klt(add) ORTABILITY ENGINEER Sam Esparza MD - 10/07/2011 9:40 AM CST This note has been dictated. ORTABILITY ENGINEER documented in this encounter Discharge Instructions Discharge InstructionsTomasa Kwan RN - 10/07/2011 10:14 AM SUPPORTABILITY ENGINEER Images from the original note were not included. Patient Discharge Instructions Reason for Visit: ACUTE PANCREATITIS [577.0] pancreatitis pancreatitis Medications: ?? Keep a written list of the medicines you take, the amounts, and when and why you take them. Bringthe list of your medications or the pill bottles when you see your caregivers. Learn why you take each medicine. Ask your caregiver for information about your medicine. Do not use any medicines, jdxd-rpw-hqthwqz drugs, vitamins, herbs, or food supplements without first talking to caregivers. ?? Always take your medicines as directed by caregivers. Call your caregiver if you think your medicine are not helping or if you feel you are having side effects. Do not quit taking your medicines until you discuss it with your caregiver. If you are taking medicines that makes you drowsy, do not drive or use heavy equipment. Your prescriptions has been faxed or called to your pharmacy. Home Education Information Influenza Vaccine (seasonal only): Given before hospital stay. Pneumonia Vaccine (year round): Does not meet criteria TOBACCO CESSATION COUNSELING If you smoke, please quit. Avoid exposure to second hand smoke. Smoking cessation support is available at [facility] Tobacco Cessation Program- 143-9581 or [employer]ITPLAN (8-037-789-PLAN or [employer]). Aline Shine does not smoke. We are concerned about your emotional health after discharge. If you are feeling alone, sad, or hopeless, a 24 hour suicide crisis and referral hotline is available at [employer] (5583) or toll-free at Instructions for Care: Follow-up appointment and/or referrals Card Given: Yes Keep all appointments. Write down any questions you may have. This way you will remember to ask these questions during your next visit. Valuables in Safe: No Home Medications Returned to Patient: Not applicable Vitals Signs Last Vitals: BP: 170/92 mmHg Pulse: 62 Resp: 18 Temp: 36.9 ??C (98.4 ??F) SpO2: 93 % Weight: 115.214 kg (254 lb) Supplies/equipment given or has at home: Patient/Family has no further questions regarding discharge instructions at this time: No HIGH BLOOD PRESSURE Self-care: Lifestyle changes may help decrease your blood pressure, and prevent or delay the onset of hypertension. These changes can decrease the amount of medicine that you need to take and decrease your risk of having a cardiovascular disease. You may do one or more of the following: Avoid drinking alcohol. Avoid drinking beer, wine, vodka, rum, and other drinks that contain alcohol. Men should have no more than two drinks per day. Women and people with low body weight should have no more than one drink per day. Change your diet. Decrease the amount of salt you use when cooking and eating. Limit the amount of packaged foods you eat that have high salt content, such as canned or frozen meals. A healthy diet rich in fruits, vegetables, and low -fat dairy products may decrease your blood pressure. Learn about the fat content in foods and reduce the amount of saturated and total fat in your diet. Ask your caregiver if you need to be on a special diet. Exercise regularly. Exercise for 30 minutes on most days of the week. Exercise may decrease your blood pressure. This may also help you decrease or maintain a healthy body weight. Ask your caregiver for the types of exercise that are best for you. Talk to caregivers if you need to lose weight, and make a plan to lose it. Reduce stress. Learn new ways to relax, such as deep breathing, meditation, and listening to music. Learn to control anger and find ways of healthy ways of releasing your emotions. These may help you control your hypertension. Ask your caregiver for more information on how to control and reduce stressin your life. Stop smoking. It is never too late to quit smoking. Smoking harms your heart, lungs, and your blood.You are more likely to have a heart attack, lung disease, and cancer if you smoke. You will help yourself and those around you by not smoking. Ask your caregiver for more information on how to stop smoking if you are having trouble quitting. Take your medicines regularly. You may be given one or more medicines to be taken for a long period.Follow your caregiver's instructions and do not stop taking them without talking to your caregiver. Appointments with other caregivers: You may need to see a hypertension specialist if you have resistant hypertension. Resistant hypertension is when your blood pressure cannot be decreased even with treatments. If you are under 20 years old, or your blood pressure has suddenly increased, you will needto see this caregiver. You will also need appointments with other caregivers if another condition iscausing your hypertension. If you develop organ damage, you will need to see other caregivers. What to expect with time or treatment: With proper treatment and lifestyle changes, your BP may go down to a healthier level. You may need to have regular follow-up appointments with your caregiver to check your blood pressure and your condition. People with stage I hypertension are usually checked every two months. Those with stage II hypertension may need to be checked every month. If your BP gets very high, you will need help and treatment right away. CONTACT A CAREGIVER IF: You have BP readings higher than normal that does not go down, even after taking your medicines exactly as you have been told to. You have more questions or concerns about your condition, medicine, or care. SEEK CARE IMMEDIATELY IF: You have a very bad headache, dizziness, trouble thinking clearly (confusion), or problems talking or understanding things. You have chest pain or discomfort that spreads to your arms, jaw, or back. Your lips or nail beds turned blue or white in color. You have nausea (upset stomach), sweating, or trouble breathing. You are not able to see out of one or both of your eyes. You have unusual, sudden back pain. You have weakness or numbness in your arm, leg, or face. This may happen on only one side of your body. Low Fat Diet WHAT YOU SHOULD KNOW: The goal of a low fat diet is to decrease the amount of calories that are eaten from fat. Following this diet may help lower your blood cholesterol (uqs-DNO-htr-ol) level. Cholesterol is a type of fat that is found in your blood. High levels of blood cholesterol can increase your risk of heart disease. A diet having too much saturated (ESQJ-cm-gwp-ed) fat, dietary cholesterol and total fat can lead to high blood cholesterol. High blood cholesterol is often seen in people who are overweight, and may run in families. For example, if your parents have high blood cholesterol, you are more likely to have it also. This diet will show you how to lower the amount of total fat, saturated fat and cholesterol in your diet. This diet will also show you how to include more fiber in your diet. Soluble fiber is one type of fiber that decreases blood cholesterol levels. You may also lose weight by following a low fat diet. Losing weight can reduce your risk of having certain diseases and health problems. AFTER YOU LEAVE: What should I avoid eating and drinking while following a low fat diet? Avoid eating foods that are high in total fat, saturated fat, and cholesterol. Learn to read labels on packaged foods before buying them. Ask your caregiver for more information about how to read food labels. The following foods are very high in fat, saturated fat or cholesterol. Bread and other carbohydrates: Biscuits, croissants, and store-bought muffins. Cakes, cookies, donuts, pies, pastries. Angolan fries, hash browns and smith bread. Granola. Snack chips. Dairy: Whole milk, evaporated whole milk, and sweetened condensed milk. Half and half creamer. Hard or semi-soft cheese. Ice cream. Cheddar cheese soup, Angolan onion soup topped with cheese, and soup made with cream, half and half, or whole milk. Fruits and vegetables: Fruits baked into high fat desserts, such as pastries, pies, or cakes. Fruit fritters. Fruit ice cream. Avocado (more than one-quarter of an avocado) or guacamole dip. Fried or batter-dipped vegetables, or vegetables prepared with butter, cream, or cheese sauce. Meats and meat substitutes: [place], fatback, ham hocks, or sausages. Fish canned in oil, or ham, cold cuts, or lunchmeats. Hot dogs, spare ribs, chimichangas, and other fried foods. Aleman or mutton, liver, sweetbreads, or organ meats. Cheese dips. Eggs (more than four per week). Fats: Butter, margarine or shortening with hydrogenated oils or lard. Coconut or coconut milk, or foods containing palm kernel, or coconut oil. Heavy, table, or whipping cream, or regular sour cream or cream cheese. What can I eat and drink while following a low fat diet?Ask your dietitian or caregiver how many servings to eat each day from each of the following groups of foods. The amount of servings you should eat from each food group will depend on your daily calorie needs. The following is one serving of eachfood item: Breads and other carbohydrates: Most people need six to 11 servings of breads and other carbohydrates every day. One slice of bread (four-inch square), or half of a three-inch bagel. One small (two-inch square) dinner roll, or half of a hamburger or hot dog bun, or Sammarinese muffin. Three-fourths of a cup of flaked cereal, or one-third of a cup of cooked cereal, such as oatmeal or farina. One-half cup of corn or peas, or one medium owyx-tc-tww-cob. One-third cup of cooked pasta or rice, or one-half cup of mashed potatoes, or one three-inch baked potato. Six crackers, or three squares of lilly crackers. One ounce of fat-free or baked potato chips or corn chips. Half of a six-inch piece of nixon bread, or one 6-inch round tortilla. Dairy: Most people need two to three servings of dairy products every day. One cup of skim or one-percent fat milk. One-third cup nonfat dry milk powder. One-half cup of low fat or fat-free frozen yogurt or ice milk. One cup of fat-free yogurt. Fruits: Most people need two to four servings of fruit every day. One-fourth of a cup of raisins, prunes, or other dried fruit. One-half cup of canned fruit or applesauce. One and one-fourth of a cup of any kind of berries. One and one-half cups of cubed melon. One small banana, or half of a large (nine-inch) banana. One medium (three-inch) apple, peach, or orange. Half of a fresh grapefruit or a large pear. Two small plums or tangerines. Seventeen small or 12 large grapes. Vegetables: Most people need three to five servings of vegetables every day. One serving of vegetables is one cup of raw vegetables, or one-half cup of cooked vegetables. Salads including greens such as lettuce, spinach, or Chris, and carrots, broccoli, celery, cucumber, radishes and other raw vegetables. Cooked fresh or frozen vegetables, such as [place] sprouts, squash, asparagus, eggplant, beets, green beans, and turnips. Choose a variety of brightly-colored vegetables. Meats and meat products: Most people need two to three servings of meat and meat products every day. Three ounces of chicken or turkey without skin. Three ounces of cooked fish or shellfish. Three ounces of lean beef, pork, low fat ham, turkey, or other deli meats. Three-fourths of a cup of fat-free or low fat cottage or ricotta cheese. One-inch cube or one ounce of low fat cheese. Two tablespoons of low fat Parmesan cheese. Two egg whites, or one half-cup of fat-free egg substitutes. One egg (eat less than four per week). One-half of a cup of cooked dried peas, beans, and lentils. Two tablespoons of peanut butter. Fats: Most people need one to three servings of fats every day. One-eighth of a medium avocado. One teaspoon of certain oils, such as canola, olive, peanut, soybean, or safflower. One teaspoon of low fat or regular soft margarine or mayonnaise. Buy only margarines that have liquid oils as the first and second ingredients listed on the food label. One tablespoon of regular salad dressing, or two tablespoons of low fat salad dressing. Two tablespoons of low fat or fat-free sour cream or cream cheese. Two tablespoons of sesame seeds, six almonds, or 10 peanuts. Two teaspoons of peanut butter. What are some other ways to decrease the amount of fat in my diet? Keep your total fat intake at about one-third or less of your daily calories. You can do this by eating low fat foods, and avoiding high fat foods. If you buy packaged foods, choose those with less than 30 percent of calories as fat. Read the labels on packaged foods before buying them. Many products have lower fat options. Choose low fat or fat-free dairy products. Remember that fat-free does not mean calorie-free. These foods still contain calories, and too many calories can lead to weight gain. Cut off fat from all meats before cooking them. Remove the skin from poultry (chicken). Do not smith meat, fish, or poultry. Bake, roast, boil, or broil these foods instead. Avoid eating fried foods. Eata baked potato instead of Angolan fries. Steam vegetables instead of sauteing them in butter. Add less fat to foods. Use imitation paris bits on salads and baked potatoes instead of regular paris bits. Use low or nonfat butter-flavored topping instead of regular butter or margarine on popcorn and other foods. How can I increase the amount of fiber in my diet?Eat enough high fiber foods to get 20 to 35 grams of fiber every day. To avoid stomach cramps, gas, and other problems, slowly increase your fiber intake. Ask your caregiver for more information about adding fiber to your diet. Following are ways to increase fiber in your diet: Eat high fiber cereals. Oatmeal is a good source of soluble fiber. Look for cereals that have bran or fiber in the name. Choose whole grain products like brown rice, barley and whole wheat pasta. Eat whole grain breads like whole wheat bread. Whole wheat, whole-wheat flour, or other whole grainsshould be listed as the first ingredient on the food label. Add bran cereal or unprocessed wheat bran to baked products. Replace whole grain flour for white flour or use half of each when baking bread.Whole grain flour is heavier than white flour so you may need to change your recipe by adding more yeast or baking powder. Add beans, peas and lentils to your diet. You can do this by adding beans to soups or salads. Eat atleast five different fruits and vegetables each day. Eat fruits and vegetables with the peels (skins) on, such as potatoes, apples, cucumbers, pears, or peaches. You can add fruit to your diet by eating them during meals and snacks. A baked potato (with skin) is a good source of soluble fiber. Risks: If you are at risk for heart disease and do not follow the diet suggestions made by your caregiver, you may develop serious medical problems. Atherosclerosis (zdl-gi-n-pliou-UC-iqm) (a build- up of fat-like substances in blood vessels) may lead to blood clots, and a heart attack. Heart muscle may be damaged, and cause disability, or . High blood cholesterol puts you at a higher risk of heart attack and stroke. Untreated high blood pressure may lead to a stroke (blood clot in the brain). It can also lead to a heart attack, or heart or kidney failure. Obesity is linked to heart disease, high blood pressure, stroke, type 2 diabetes, and certain types of cancer. This includes cancer of the breast, colon, or prostate in men. Other health problems linked to obesity include bone and joint problems, breathing problems, and emotional suffering. For more in formation about following a healthy heart diet contact: [employer] [address] [address] Phone: Web Address: http://www.americanheart.org CONTACT A CAREGIVER IF: You have questions or concerns about your illness, medicine, or this diet. Pancreatitis WHAT YOU SHOULD KNOW: Pancreatitis (mgb-llce-ac-TI-tis) occurs when the pancreas is irritated (inflamed). The pancreas is an organ that makes insulin. The pancreas also makes enzymes (digestive juices) that help your body to digest food. Pancreatitis may be a short-term problem that happens once. It may become a long-term problem that comes and goes over time. AFTER YOU LEAVE: Medicines: Keep a current list of your medicines: Include the amounts, and when, how, and why you take them. Take the list or the pill bottles to follow-up visits. Carry your medicine list with you in case of an emergency. Throw away old medicine lists. Use vitamins, herbs, or food supplements only as directed. Take your medicine as directed: Call your primary healthcare provider if you think your medicine is not working as expected. Tell him about any medicine allergies, and if you want to quit taking or change your medicine. Antibiotics: This medicine is given to fight or prevent an infection caused by bacteria. Always takeyour antibiotics exactly as ordered by your primary healthcare provider. Do not stop taking your medicine unless directed by your primary healthcare provider. Never save antibiotics or take leftover antibiotics that were given to you for another illness. If you are taking medicine that makes you drowsy, do not drive or use heavy equipment. Ask for information about where and when to go for follow-up visits: For continuing care, treatments, or home services, ask for more information. How should I take care of myself at home? Rest: You may feel like resting more. Rest when you feel it is needed. Slowly start to do more each day. Return to your normal activities when you feel better. Do not drink alcohol: Drinking alcohol may make your pancreatitis worse. Even if your pancreatitis goes away, drinking alcohol may cause it to occur again. If you need help, contact the following organization for information on how to quit drinking alcohol: Alcoholics Anonymous Web Address: http://www.alcoholics-anonymous.org. Eat a healthy diet as directed by your caregiver: When caregivers say you can eat a normal diet, eathealthy foods from all of the 5 food groups: fruits, vegetables, breads, dairy products, meat and fish. Eating healthy foods may help you feel better and have more energy. It may also help you heal faster. You may be told to eat foods that are low in fat. Ask your caregiver for more information about a low fat diet. You may also be told to limit the amount of salt you eat. This may mean you should not add salt to your food during meals or when you cook. It can take time getting used to a new diet. Special cookbooks may help the cook in the family find new recipes. Drinking liquids: Adults should drink about 9 to 13 cups of liquid each day. One cup is 8 ounces. Good choices of liquids for most people include water, juice, and milk. Coffee, soup, and fruit may be counted in your daily liquid amount. Ask your caregiver how much liquid you should drink each day. Learn to control your stress: Stress may slow healing and cause illness later. Since it is hard to avoid stress, learn to control it. Learn new ways to relax (deep breathing, relaxing muscles, meditation, or biofeedback). Talk to someone about things that upset you. CONTACT A CAREGIVER IF: You have bad abdominal (belly) pain, vomiting, swelling and gas in your abdomen, or muscle aches. You continue to lose weight. Your skin or the whites of your eyes turn yellow. SEEK CARE IMMEDIATELY IF: You have a fever. ORTABILITY ENGINEER documented in this encounter Medications at Time [...] 5 MG Take 1 Tab by mouth 31 Tab 1 1 12/08/2010 12/09/2011 tablet one time a day. metoprolol tartrate Take 1 Tab by mouth 62 Tab 1 011 12/18/2011 (LOPRESSOR) 50 MG tablet two times a day. documented in this encounter Discharge Disposition Disposition Code Departure Means Destination Home and/or Self Care documented in this encounter Progress Notes Valerie Swanson MD - 10/08/2011 8:46 AM CST ORTABILITY ENGINEER Tomasa Kwan RN - 10/07/2011 10:39 AM CST D: Discharge orders obtained. Pt states he is ready to return home. A: Discharge tasks completed. Discharge instructions completed with pt and . Pt states understanding of instructions. R: Pt discharged to home with . Tolerated well. ORTABILITY ENGINEER Jovanni Cottrell MD - 10/07/2011 8:00 AM CST [facility] Patient Name: ALINE SHINE Date of Service: 10/07/2011 : 1950 Age: 61Y Sex: M DC Site MRN: Patient Loc/Room #: [id number]/6021 Provider: Jovanni Cottrell MD, Gastroenterology PROGRESS NOTE SITE: [facility] DATE: 10/07/2011. The night before last things seemed to turn the corner with much less abdominal pain. He was able tostart clear liquids yesterday and that went well. Minimal pain meds requirements. Having gas and a little loose stool. Feels ready to advance his diet. His fevers have defervesced off antibiotics. Cultures were all negative. PHYSICAL EXAM: Temperature of 98.7, pulse 62, respirations 18, blood pressure 159/72. Abdomen - positive bowel sounds, soft, minimal tenderness, nondistended. LABORATORY REVIEW: Normal amylase and lipase this morning. ASSESSMENT AND PLAN: Recurrent acute idiopathic pancreatitis. Clinically resolving. Advanced to a low-fat diet, possibly discharge later today. Follow up with me in clinic in a couple of weeks and if he is able to stay well. We will make arrangements for an endoscopic ultrasound after the inflammatorychanges have had a chance to subside to improve the sensitivity and specificity of the study. ELECTRONICALLY SIGNED Jovanni Cottrell MD [facility] Gastroenterology cc: /JOHNSON Job ID: [id number] /rp Document ID: [id number] Landy Garza RN - 10/06/2011 2:45 PM CST Increased diet to full liquids today, and tolerated well. Has not required and prn meds today for pain. Ambulating in the halls frequently. BP remains slightly elevated-MD aware, and will observe for another day, and adjust dose tomorrow, if continues to be elevated. ORTABILITY ENGINEER Luis Laughlin MD - 10/06/2011 10:02 AM CST [facility] Patient Name: ALINE SHINE Date of Service: 10/06/2011 : 1950 Age: 61Y Sex: M DC Site MRN: Patient Loc/Room #: BR/ Provider: Luis Laughlin MD, [facility] PROGRESS NOTE SITE: [facility] PROBLEM: Pancreatitis. SUBJECTIVE: The patient has had slow but improving course during his most recent hospital stay. Lastnight he had somewhat of a restless night because of the IV beeper would go off and on about every 2hours. The patient notes this morning he was able to tolerate a clear liquid diet. He denies nausea.Still complains of some abdominal pain, mostly epigastric and right upper quadrant. He notes no nausea this morning. He has had some gas. OBJECTIVE: Vital signs this morning, his blood pressure 165/85, temperature 98.3, pulse was 68 to 70. O2 saturations room air 97%, respirations around 18. Patient was sitting in a chair, looked comfortable, he moved nicely onto the bed so we could examine him. Heart and lungs were normal to examination. His blood pressure still remains slightly elevated but under better control. Abdominal exam - slightly protuberant. Bowel sounds present. Mild to moderate epigastric and right upper quadrant pain to deep palpation, there was no rebound. Most recent labs revealed a fasting blood sugar of 108, creatinine of 1.02 with a BUN of 10. Potassium was 4, sodium of 140, chloride 108. Proteins were down. AST was 14, ALT 34, lipase was 44. IMPRESSION: 1. Acute pancreatitis, improving. Will continue to advance diet to full liquid, will initiate that at lunch. Will discontinue his normal saline IV and use a lock-only. Morning labs will include a lipase and amylase. 2. Hypertension. Patient's blood pressure is better from admission. Yesterday his Lopressor was increased from 25 to 50, that seems to have helped. We will continue to monitor. He is still elevated today, but less so. The patient may be salt-sensitive, so discontinuing the normal saline solution and IV solution, and advancing his diet to no added salt. ELECTRONICALLY SIGNED Luis Laughlin MD [facility] cc: /[facility] Job ID: [id number] /[facility] Document ID: [id number] ORTABILITY ENGINEER Allyson Haile RN - 10/05/2011 5:09 PM CST Pt reported feeling like heart is racing Pt diaphoretic upon entering the room. VS as follows: T: 98.5, BP: 157/80, Pulse:75 apically, O2: 99% RA, Resps: 20. Stated feeling subsided quickly but came on just as quickly. Heartbeat strong with even rhythm. Stated he is feeling ok again. Will continue to monitor. ORTABILITY ENGINEER Isabel Shelley - 10/05/2011 1:56 PM CST D-Ambulated in ulloa x2 full ekuk today, tolerated well, decreased pain in upper abdomin, dilaudid 0.5mg given once this shift. He showered today and is starting clear liquids this afternoon. He will have lab work re-checked tomorrow. His glucose was 122 and he needed no coverage today.Continue same plan of care. ORTABILITY ENGINEER Eduardo Pinto - 10/05/2011 12:55 PM CST SUBJECTIVE: Aline Shine is a 61 year old male seen on rounds today, 10/05/2011. Doing better. Not eating yet as no diet, but no N/V. No diarrhea. Less abd pain and needing less narcotics. Up and around without pain. No fevers, but has felt some hot flash-type symptoms and had diaphoresis on occasion without elevated temp.No swelling in the legs. No chest pain or SOB/PAIGE. ROS:no rash. No neuro symptoms. OBJECTIVE: BP 159/87 Pulse 65 Temp(Src) 36.9 ??C (98.4 ??F) (Oral) Resp 20 Ht 5' 10 (1.778 m) Wt 254lb (115.214 kg) BMI 36.45 kg/m2 SpO2 97% Weights 10/02/11 0857 10/02/11 1247 Weight: 257 lb (116.574 kg) 254 lb (115.214 kg) General Appearance: healthy, in no distress, cooperative, Skin: no rash. Hydration: well hydrated, Neck: supple, no lymphadenopathy, no thyromegaly, Lungs: normal respiration, clear to auscultation andno rales or rhonchi, Heart: regular rhythm, normal heart sounds, no murmur, Extremity: no edema, Abdomen: Normal bowel sounds throughout. No hepatosplenomegaly, mildly tender to palpation in the upper abd, nontender in the lower abd. No masses or distention. Neuro: limited exam:alert, oriented x3, affect appropriate, no focal neurological deficits, moves all extremities well and no involuntary movements Recent Results (from the past 12 hour(s)) GLUCOSE, METER Component Value Range GLUCOSE, METER 125 (*) 70 - 99 (mg/dL) GLUCOSE, METER Component Value Range GLUCOSE, METER 122 (*) 70 - 99 (mg/dL) A/P: Patient Active Hospital Problem List: Acute pancreatitis (09/22/2011) Assessment: Better. Recheck labs tomorrow. Liquid diet starting today. Continue IVF. No abx at thispoint. Continue to monitor closely. Hopefully we can advance his diet tomorrow. Essential hypertension, benign (09/10/2011) Assessment: Still elevated. Increase metoprolol. Given pancreatitis, we'll hold off on HCTZ or ACEIfor now. May need hydralazine PO if we can't get his pressure down with B jael. Diabetes mellitus type II (09/22/2011) Assessment: Good control. No changes. Monitor in resumption of diet. ORTABILITY ENGINEER Allyson Haile, RN - 10/04/2011 11:07 PM CST D: c/o abdominal pain x 3 this shift. Rated it 5/10. A: 1 mg dilaudid x 3. R: Good relief reported. Pain rated 3/10 after pain medication. D: Ambulating around complete loop independently several times this shift. ORTABILITY ENGINEER Isabel Shelley - 10/04/2011 12:55 PM CST 10/04/11 1255 Isabel Shelley, RN - Registered Nurse] D-Patient up ambulating in ullao and room, he showered today also, he still has mid and right abdominal pain, bowel sounds hypoactive, he is passing gas. A- dilaudid x2 for pain rated at 4-5/10 on scale R-patient states relief of pain with dilaudid. ORTABILITY ENGINEER Yasmine Sunshine RD - 10/04/2011 9:38 AM CST Follow up- Pt. Has improved and may start po slowly tomorrow. Celeste Lau - 10/04/2011 8:57 AM CST Good pastoral visit with pt and his . Their bracelet form coverer is aware of his hospitalization. Valerie White MD - 10/04/2011 8:38 AM CST 10/04/2011 HOSPITALIST SERVICE Valerie Swanson MD SUBJECTIVE Interim history since last evaluated: Stable, no new problems noted. Patient is starting to pass gas. No BM for 2 days. Overall feeling somewhat weak. ROS: Pertinent items are noted above. OBJECTIVE Patient Vitals for the past 8 hrs: Temp Temp src Pulse BP Resp SpO2 O2 Device 10/04/11 0752 37.2 ??C (99 ??F) Oral 83 162/86 mmHg 20 96 % None (Room air) 10/04/11 0445 37.4 ??C (99.3 ??F) Oral - - - - - 10/04/11 0327 36.6 ??C (97.8 ??F) Oral 94 154/86 mmHg 22 96 % - EXAM: APPEARANCE: alert, no apparent distress. SKIN: clear with no lesions or rash noted. CHEST: good respiratory effort without retractions, good air entry and normal breath sounds bilaterally. HEART/VASCULAR: regular, S1 & S2 normal. ABDOMEN: flat, soft without tenderness. Medications reviewed: yes. Labs reviewed: yes. Recent Labs Basename 10/04/11 0605 10/03/11 0630 10/03/11 0108 HGB 11.5* 12.5* 13.0 WBC 14.1* 18.5* 18.8* PLTS 156 177 210 NA 137 136 138 K 4.1 4.4 4.3 BUN 11 12 11 CREAT 0.99 1.12 1.07 INR -- -- -- Imaging: no new results. ASSESSMENT/PLAN Patient Active Hospital Problem List: Acute pancreatitis (09/22/2011) Assessment: Improved Plan: Discontinue antibiotics. Continue IVF and bowel rest. Advance diet slowly starting tomorrow. Disposition: Discharge 2-3 days. ORTABILITY ENGINEER Jovanni Cottrell MD - 10/04/2011 8:18 AM CST [facility] Patient Name: ALINE SHINE Date of Service: 10/04/2011 : 1950 Age: 61Y Sex: M DC Site MRN: Patient Loc/Room #: [id number]/6021 Provider: Jovanni Cottrell MD, Gastroenterology PROGRESS NOTE SITE: [facility] DATE: 10/04/2011 SUBJETIVE: Pain is still hovering around 6/10 or 7/10 when he is requesting narcotics. That brings it down to about 3/10. No nausea or vomiting. Still some abdominal distention. He did pass a little gas this morning. He has been doing some walking. He is still having some fevers. He feels shaky chills. He may be ready to spike a temp again. Blood cultures are negative to date. OBJECTIVE: Vitals - T-max in the last 24 hours was 101. Last temp of 99.0, pulse of 83, [id number], and blood pressure 162/86. Abdomen - a few bowel sounds. Moderate distention. Tenderness across the upper abdomen. LABORATORY REVIEW: Comprehensive metabolic profile remarkable for albumin of 3.0. Normal liver chemistries. Otherwise normal electrolytes. Lipase down to 154. White count is down to 14.0. Hemoglobin 11.5. ASSESSMENT AND PLAN: Idiopathic recurrent acute pancreatitis. Slight clinical improvement with flatus. Biochemically improving. Still some fevers, which I believe is inflammatory. He is on antibiotics,but I would have a low threshold for discontinuing these. Continue with general supportive care. Notready to try a diet yet. ELECTRONICALLY SIGNED Jovanni Cottrell MD [facility] Gastroenterology cc: /JOHNSON Job ID: [id number] /scott Document ID: [id number] ORTABILITY ENGINEER Camilla Melendez RN - 10/04/2011 7:10 AM CST D) Patient reported abdominal pain in both sides, but mainly in the right which radiates a little to the back. He has rated his pain a 5-7 prior to pain medication throughout the night. Described as sharp & ongoing. Patient also reported belching described as painful & a feeling of pressure. A) Medicated with Dilaudid 1mg X3 tonight. R) Pain has decreased to a 3 after being medicated. D) Patient has been up ambulating in the halls X2 tonight for a total of 1720ft. Patient has been afebrile during routine vital signs, but patient requested a new pillow case at 0445 & appeared to be a little diaphoretic as if a temperature broke. Temperature was 99.3F orally at that time. ORTABILITY ENGINEER Andreina Juares - 10/03/2011 9:21 PM CST D: pt continues with pain 5-7 which increases with activity. Ambulated in halls without difficulty, stating he felt a little shaky but steady. A: Medicated with dilaudid for pain. Encouraged to increase activity. Will continue to monitor. R: Pain level decreases to a 3-4 after pain medications. Tolerated activity but complains of increased pain. ORTABILITY ENGINEER Valerie Swanson MD - 10/03/2011 1:45 PM CST ORTABILITY ENGINEER Jovanni Cottrell MD - 10/03/2011 1:34 PM CST [facility] Patient Name: ALINE SHINE Date of Service: 10/03/2011 : 1950 Age: 61Y Sex: M DC Site MRN: Patient Loc/Room #: [id number]/6021 Provider: Jovanni Cottrell MD, Gastroenterology PROGRESS NOTE SITE: [facility] SUBJECTIVE: Pain right now is about 6/10. His last narcotics were after his MRI this morning and brings it down to about 2/10. No appetite. No flatus or stool. MRCP shows no evidence for divisum and nobiliary filling defects. Changes of pancreatitis as expected. No fluid collections or evidence for necrosis. He did have at temp last night up to 102 and got blood cultures and antibiotics started withLevaquin and metronidazole. His UA on admission was negative as well as his chest x-ray. OBJECTIVE: Vitals - current temp of 99.2, pulse 84, respirations 20, and blood pressure 164/81. Abdomen - positive bowel sounds. Soft. Tenderness across the upper abdomen. No guarding or rebound. LABORATORY REVIEW: Comprehensive metabolic profile from this morning is unremarkable. White count 18.5. Hemoglobin 12.5. ASSESSMENT AND PLAN: Recurrent acute idiopathic pancreatitis. Clinically stable. He is n.p.o. for now. IV fluids and other supportive cares. I suspect that his fever is simply inflammatory response. I think if his blood cultures are negative, we should get him off the antibiotics as quickly as possible. No indication for antibiotics based on current guidelines for treatment of acute pancreatitis. Eventual EUS as an outpatient hopefully will during quiescence would be our goal. ELECTRONICALLY SIGNED Jovanni Cottrell MD [facility] Gastroenterology cc: /JOHNSON Job ID: [id number] /mb Document ID: [id number] ORTABILITY ENGINEER Yasmine Sunshine RD - 10/03/2011 1:00 PM CST 61 yo with acute pancreatitis Day 1 NPO 177.8 cm, 115.2 kg, BMI 36.5-obesity Albumin 3.5- wnl, lipase 1597- hi Diet advance per MD. May benefit from TPN if does not improve. Estimated calorie needs: 3667-2451/day; protein 75-100 gm Valerie White MD - 10/03/2011 10:33 AM CST 10/03/2011 HOSPITALIST SERVICE Valerie Swanson MD SUBJECTIVE Interim history since last evaluated: Has developed a fever and was started on IV antibiotics last nigh. Aline denies pain this morning. ROS: Pertinent items are noted above. OBJECTIVE Patient Vitals for the past 8 hrs: Temp Temp src Pulse BP Resp SpO2 O2 Device 10/03/11 0747 38 ??C (100.4 ??F) Oral 98 151/83 mmHg 20 93 % - 10/03/11 0429 - - - - 20 - - 10/03/11 0411 37.2 ??C (99 ??F) Oral 85 198/89 mmHg 20 94 % None (Room air) EXAM: General: NAD, comfortable Neck: No JVD Heart: RRR Lungs: CTA, no increased work of breathing noted Abd: Mild RUQ tenderness, mild distention, BS+, Ext: No edema noted Medications reviewed: yes. Labs reviewed: yes. Recent Labs Basename 10/03/11 0630 10/03/11 0108 10/02/11 0902 HGB 12.5* 13.0 14.5 WBC 18.5* 18.8* 12.6* PLTS 177 210 231 NA 136 138 143 K 4.4 4.3 4.4 BUN 12 11 16 CREAT 1.12 1.07 1.13 INR -- -- -- Imaging: results pending. ASSESSMENT/PLAN Patient Active Hospital Problem List: Acute pancreatitis (09/22/2011) Assessment: Stable Plan: Continue IV antibiotics and fluids. Management per Gastroenterology. Disposition: home 3-4 days. ORTABILITY ENGINEER Yasmine Yost RN - 10/03/2011 1:42 AM CST D. Temp 102 orally at first rounds. Face flushed and skin warm and dry. C/o abdominal pain. Rated discomfort 6-7 out of 10. Denied any other discomfort. Rebecca Harris medtronics technician notified and orders obtained and carried out. Medicate with Dilaudid one mg at 0005. Tylenol 650 mg given at 0140 for elevated temp and started on Levaquin IV after blood cultures times 2obtained. R. Stated pain down to a 5 at this time. Will continue to monitor temp and medicate as needed. ORTABILITY ENGINEER Daniel Biggs MD - 10/03/2011 12:32 AM CST 10/03/2011 12:32 AM S: Notified by RN that patient is running fever of 102. He is one week out from [facility] and is admitted with pancreatitis. Fever is new and he has not had blood cultures. He did have an elevated white count on admission. O: BP 168/87 Pulse 87 Temp(Src) 38.1 ??C (100.5 ??F) (Oral) Resp 20 Ht 1.778 m (5' 10) Wt115.214 kg (254 lb) BMI 36.45 kg/m2 SpO2 94% No exam A: Fever with pancreatitis P: Draw blood cultures now and then start on Levaquin and Flagyl. Stop Zofran due to interaction with Levaquin. Use Phenergan for nausea or vomiting. Check CBC, CMP and Lactate level now. Daniel Biggs MD ORTABILITY ENGINEER Blair Rios RN - 10/02/2011 1:52 PM CST Patient admitted with complaints of increasing right side abdominal pain which started last evening.Patient states his pain is a sharp pain and on arival to unit rates his pain at a 8. Patient medicated with 1mg iv dilaudid at 1300 and after 15 minutes already states his pain is decreasing. Patient denies questions at this time. ORTABILITY ENGINEER documented in this encounter H&P Notes Benjamin Subramanian - 10/02/2011 12:23 PM CST Aline Shine [address] [facility] [address] Primary Physician: Richardson Graham MD Chief complaint: patient is here with epigastric and abdominal pain History of present illness: Aline Shine is 61 year old male recently admitted to this hospital for acute pancreatitis from 09/21 to 09/24/11. The recently started medication, lisinopril was discontinued and was scheduled for an outpatient cholecystectomy which he had that done on 09/25/11. He was doing relatively well till this Friday. He started feeling fatigued and was weak by the end of the day. Yesterday he noticed some epigastric and right upper quadrant abdominal pain, continuous, dull type, slowly worsening, up to 8/10 in intensity and sometimes radiating to his back. He did not have any aggravation with food like he did have in his last visit. The pain got worse this morning, which prompted him to come to ER. He was found to have elevated lipase in ER. He is currently being admitted for acute pancreatitis. He complaints of right upper quadrant pain of 8/10 in intensity. He denied any nausea or vomiting. No fever or chills. No change in bowel movement. No dysuria or urinary symptoms. Review of system: A complete review of system is negative except as mentioned above. Past Medical History Diagnosis Date ??? Diabetes mellitus type II ??? Obstructive sleep apnea ??? Hypertension ??? Obesity ??? Pancreatitis, acute 09/22/2011 ??? Eczema Hands and elbows Past Surgical History Procedure Date ??? Knee arthroscopy Both knees; ACL repair left; Meniscus on the right ??? Lap,cholecystectomy 09/25/11 with cholangioram Family History Problem Relation Age of Onset ??? Diabetes ??? Parkinson's Disease Father Parkinson's ??? Cancer Father Prostate ??? Leukemia Mother Leukemia ??? Cancer Brother Prostate ??? Cardiovascular Disease Brother Dysrrhythmia ??? GI Disease Sister IBS ??? Musculo-skeletal Disease Sister Osteoporosis Social History: History Substance Use Topics ??? Smoking status: Never Smoker ??? Smokeless tobacco: Never Used ??? Alcohol Use: No occasional Allergies Allergen Reactions ??? Penicillins Anaphylaxis Prior to Admission Medications Medication Last Dose Informant Patient Reported? Taking? metoprolol tartrate (LOPRESSOR) 25 MG tablet No Yes Take 1 Tab by mouth two times a day. HYDROcodone-acetaminophen (NORCO) 10-325 MG per tablet Yes Yes Take 1 Tab by mouth every six hours as needed. Acetaminophen should be limited to 4000 mg per day. omeprazole magnesium delayed release (PRILOSEC OTC) 20 MG tablet No Yes Take 1 Tab by mouth one time a day. Tablet should be swallowed whole; do not crush or chew. docusate sodium (COLACE) 50 MG capsule Yes Yes 1-2 tablet PO daily Zinc 50 MG TABS Yes Yes Take 1 Tab by mouth one time a day. ascorbic acid (VITAMIN C) 500 MG tablet Yes Yes Take 1 Tab by mouth as needed (cold sysmptoms). omega-3 fatty acid (FISH OIL) 1000 MG capsule Yes Yes Take 1 Cap by mouth one time a day. metFORMIN (GLUCOPHAGE) 1000 MG tablet No Yes TAKE ONE TABLET BY MOUTH TWICE DAILY CIALIS 20 MG tablet No Yes 1 tablet, ORAL, DAILY, PRN [id number], 02/08/10 8:24:43 [facility]IL[employer] ASPIRIN 81 MG chewable tablet No Yes 81 mg, ORAL, DAILY, Refills: 0, 02/06/09 18:34:01, Substitution Permitted, current med (Hx) multivitamin (TAB-A-LISA) TABS No Yes 1 tablet, ORAL, DAILY, Refills: 0, 02/06/09 18:34:57, Substitution Permitted, current med (Hx) betamethasone dipropionate 0.05 % cream Yes No Apply topically as needed for Other. Apply sparingly. Examination: Vitals: BP 233/125 Pulse 78 Temp(Src) 36.7 ??C (98.1 ??F) (Oral) Resp 24 Ht 1.778 m (5' 10) Wt 116.574 kg (257 lb) BMI 36.88 kg/m2 SpO2 99% General: alert and oriented and not in distress. Heent: Head is atraumatic. Pupils are equal and reactive to light. Oral mucosa is slightly dry. Neck: Supple. No JVD Heart: S1, S2 normal, no murmur, click, rub or gallop, regular rate and rhythm Lungs: normal respiration, clear to auscultation and no rales or rhonchi Abdomen: Soft, non tender. No distension. Bowel sounds are active. There are fresh healing wound of laparoscopic surgery. Extremity: Extremities normal. No deformities, edema, or skin discoloration Neurologic: normal without focal findings Psychiatric: No depression, no delusion, no hallucinations. Skin: no hyperpigmentation, vitiligo, or suspicious lesions Lab Results: Recent Results (from the past 12 hour(s)) HEMOGRAM/DIFF Component Value Range WBC 12.6 (*) 3.4 - 10.7 (109/L) RBC 4.86 4.20 - 5.90 (1012/L) HGB 14.5 13.0 - 17.0 (g/dL) HCT 42.0 37.5 - 51.0 (%) MCV 86.4 82.0 - 99.0 (fL) MCH 29.9 27.0 - 34.0 (pg) MCHC 34.6 32.0 - 35.7 (g/dL) RDW 13.5 11.0 - 15.0 (%) PLT 231 150 - 400 (109/L) COMPR MET PANEL Component Value Range SODIUM 143 136 - 143 (mEq/L) POTASSIUM 4.4 3.6 - 5.0 (mEq/L) CHLORIDE 104 98 - 107 (mEq/L) CO2 27 22 - 31 (mEq/L) GLUCOSE 139 (*) 70 - 99 (mg/dL) BUN 16 7 - 21 (mg/dL) CREATININE 1.13 0.66 - 1.25 (mg/dL) GFR CALC >60 CALCIUM 9.2 8.5 - 10.6 (mg/dL) PROTEIN, TOTAL 7.5 6.3 - 8.2 (gm/dL) ALBUMIN 4.3 3.5 - 5.0 (gm/dL) ALK PHOSPHATASE 90 38 - 126 (IU/L) ALT(SGPT) 53 7 - 56 (IU/L) AST(SGOT) 37 15 - 59 (IU/L) TOTAL BILIRUBIN 0.7 0.0 - 1.2 (mg/dL) ANION GAP 16 TROPONIN I Component Value Range TROPONIN I 0.006 0.000 - 0.100 (ng/mL) DIFFERENTIAL Component Value Range NEUTROPHIL % 86.0 (*) 40.0 - 80.0 (%) LYMPHOCYTE % 8.5 (*) 10.0 - 44.0 (%) MONOCYTE % 4.5 3.0 - 15.0 (%) EOSINOPHIL % 0.6 0.0 - 8.0 (%) BASOPHIL % 0.4 0.0 - 3.0 (%) NEUTROPHIL ABS 10.8 (*) 1.7 - 8.5 (109/L) LYMPHOCYTE ABS 1.1 0.9 - 3.6 (109/L) MONOCYTE ABS 0.6 0.3 - 1.0 (109/L) EOSINOPHIL ABS 0.1 0.0 - 0.6 (109/L) BASOPHIL ABS 0.1 0.0 - 0.3 (109/L) LIPASE Component Value Range LIPASE 1597 (*) 23 - 203 (IU/L) LACTIC ACID, LOUISE Component Value Range LACTIC ACID, LOUISE 1.1 0.7 - 2.1 (mmol/L) UA TO CULTUR PRN Component Value Range Type CVMS COLOR YELLOW CLARITY CLEAR SPECIFIC GRAVITY >=1.030 PH URINE 5.5 LEUK ESTERASE Neg NITRITE Neg PROTEIN Neg GLUCOSE URINE Neg KETONE Neg Microscopic Exam: Not Indicated URINE WBC Not Indicated URINE RBC Not Indicated Urine Culture Reflex Not Indicated Narrative: Urinalysis will reflex to a culture if there are greater than 10 WBC's on the m Imaging: RUQ ultrasound: No definite fluid collection within the gallbladder fossa. Common bile duct measures6 mm. CXR: no acute findings Assessment: ?? Epigastric and abdominal pain: from acute pancreatitis. Has elevated lipase. Recently had lap cholecystectomy and cholangiogram for the same reason. No history of alcohol abuse. No intake of any herbal supplements or any medications that might trigger pancreatitis. His triglyceride level was normallast month. ?? Hypertension: hasn't taken any of his medications today. His blood pressure is elevated. This could be aggravated by pain as well. ?? Type 2 DM on metformin. Recent A1C was 6.4 on 08/23/11 ?? Obstructive sleep apnea ?? Obesity ?? DVT prophylaxis Plan: The patient will be admitted to medical floor. Will keep him NPO except meds. I will resume all of his medications and give him this morning's medications. If his blood pressure remains on higher side,then will need to initiate another hypertensive or increase the dose of metoprolol. Code Status: Full Code ORTABILITY ENGINEER documented in this encounter Procedure Notes Valerie Swanson MD - 10/08/2011 8:46 AM CST ORTABILITY ENGINEER documented in this encounter Consult Notes Jovanni Cottrell MD - 10/02/2011 7:49 PM CST [facility] Patient Name: ALINE SHINE Date of Service: 10/02/2011 : 1950 Age: 61Y Sex: M DC Site MRN: Patient Loc/Room #: HMHD5UHQ/6021 Provider: Jovanni Cottrell MD, Gastroenterology CONSULTATION SITE: [facility] DATE: October 02, 2011 REQUESTING PHYSICIAN: Benjamin Subramanian MD REASON FOR CONSULTATION: Recurrent acute pancreatitis. CHIEF COMPLAINT: ???I had pain again. HISTORY OF PRESENT ILLNESS: Mr. Shine is a 61-year-old male who was admitted on 09/21/2011, with acute pancreatitis. First event. No alcohol. He had normal liver chemistries at that time. Ultrasound showed some sludge in the gallbladder with 6 mm bile duct. He went on to cholecystectomy on 09/25/2011. Negative intraoperative cholangiogram. Pathology was remarkable for chronic cholecystitis. No gallstones noted. He seemed to recover uneventfully. He went to work for part of a day on the , but then started developing the abdominal pain. He developed epigastric pain, nausea to the point of at least a one episode of emesis with pain to the back as well. Describes it as excruciating. Came back into the emergency room today and was found to have elevated lipase again. Again, normal liver chemistries. No fevers or chills. He had recently started lisinopril just a few days before the first bout of pancreatitis and that was discontinued. He also was started on Prilosec the day before the bout of pancreatitis, but that has continued. PAST MEDICAL HISTORY: 1. Diabetes mellitus type 2. 2. Obstructive sleep apnea. 3. Hypertension. 4. Obesity. 5. Eczema. 6. Bilateral knee arthroscopic surgeries. 7. Laparoscopic cholecystectomy, negative intraoperative cholangiogram as described above. 8. EGD and colonoscopy performed July 2002 for some dyspeptic symptoms. Normal upper GI tract andhyperplastic rectal polyp with 10 year surveillance interval recommended; otherwise normal colonoscopy. MEDICATIONS: 1. Vicodin. 2. Metoprolol. 3. Omeprazole 20 mg daily. 4. Colace. 5. Zinc. 6. Ascorbic acid. 7. [place]-3 fatty acid. 8. Metformin. 9. Cialis. 10. Baby aspirin. 11. Multivitamin. 12. Betamethasone cream. No other pakb-gvv-aregasm or alternative medications. ALLERGIES; ALLERGIES TO PENICILLIN WITH ANAPHYLACTIC REACTION. FAMILY HISTORY: No pancreatitis to his knowledge. Sister with IBS, otherwise no GI diseases or malignancies to his knowledge. SOCIAL HISTORY: He is accompanied by his . No significant alcohol intake. Nonsmoker. REVIEW OF SYSTEMS: Complete 11-point review of systems negative other than as noted above. OBJECTIVE: Vital signs - temperature of 100.0, pulse of 82, respirations 18, blood pressure 172/91. General - pleasant, uncomfortable obese, middle-age white male. Skin - no rashes, lesions or jaundice. HEENT - pupils are reactive. Sclerae anicteric. Normal conjunctivae. Oropharynx is clear. Moist mucous membranes. Fair dentition. Neck - without adenopathy or thyromegaly. Lungs - clear to auscultation. Good respiratory effort. Heart - regular rate, no murmurs. Abdomen - positive bowel sounds, soft; tenderness across the upper abdomen. No guarding or rebound. No hepatosplenomegaly, mass, abdominal bruits, or hernias. Lymph nodes - no cervical, axillary, or inguinal adenopathy. Extremities - no edema. LABORATORY REVIEW: Admission lipase from 09/21/2011, 464 with a normal amylase value of 75. Followuplipase on the was normal at 115, again with a normal amylase of 33. Labs today include lipase of 1597. Comprehensive metabolic profile is unremarkable. Normal calcium and liver chemistries. CBC with diff remarkable for white count of 12.6. UA is within normal limits. Normal lactic acid. RADIOLOGY REVIEW: 1. Ultrasound of the abdomen - no fluid collection to suggest bile leak. Common bile duct 6 mm. Surgically absent gallbladder in the interim since his last exam on the . 2. Chest x-ray - normal. ASSESSMENT AND PLAN: Recurrent acute pancreatitis, idiopathic. Normal liver chemistries with the last admission was against a biliary process, so it is not unexpected that he has had recurrence, statuspost cholecystectomy. The lisinopril has been on hold and that has been taken out of the equation. He did also get started on omeprazole before the event. Again, very rare, but that will be put on holdas well. He has never had issues with hypertriglyceridemia with a value of 141, 08/23/2011. Considerpancreas divisum and small lesion in the head of the pancreas. MRCP will be ordered, but sensitivityis decreased in the acute setting. It would be desirable to treat him symptomatically with supportive care through this event and eventually get him an endoscopic ultrasound during a period of quiescence, but given the two back the back attacks this may not be feasible. ELECTRONICALLY SIGNED Jovanni Cottrell MD [facility] Gastroenterology cc: Benjamin Subramanian MD /WJS Job ID: [id number] /lb Document ID: [id number] ORTABILITY ENGINEER documented in this encounter ED Notes Elizabeth Mccain RN - 10/02/2011 11:23 AM CST Pain returning. MD informed. ORTABILITY ENGINEER Elizabeth Mccain RN - 10/02/2011 10:24 AM CST States feeling better and pain improved. ORTABILITY ENGINEER Elizabeth Mccain RN - 10/02/2011 9:45 AM CST Back from xray not change in pain. ORTABILITY ENGINEER Elizabeth Mccain RN - 10/02/2011 9:32 AM CST Pt to xray. ORTABILITY ENGINEER Morgan Storm MD - 10/02/2011 9:11 AM CST Chief Complaint Chest Pain HPI Patient presents to the emergency department as a 61-year-old male who comes in complaining of right upper abdominal pain. Patient states symptoms began doing yesterday. Patient states pain has slowly worsened. Patient took a Vicodin at 9 PM last night but woke up with persistent pain and was directed to come to the emergency department for further evaluation by his primary care physician's office. Patient is status post cholecystectomy performed last week at this institution by Dr. Batres. Common bile duct stone was suspected at that time. Patient states he recovered from surgery without incident but had recurrence of pain yesterday beginning at noon. She's had nausea but no vomiting. He said no fevers or chills. He's had mild back pain. Patient has had no shortness of breath or cough. He's had no pains in his neck, jaw, arms, or shoulders. No other issues of concern reported at this time. Review of Systems Respiratory: Positive for chest tightness. Gastrointestinal: Positive for nausea and abdominal pain. Negative for vomiting, diarrhea and constipation. All other systems reviewed and are negative. Allergies Allergen Reactions ??? Penicillins Anaphylaxis Patient's Medications New Prescriptions No medications on file Previous Medications ASCORBIC ACID (VITAMIN C) 500 MG TABLET Take 1 Tab by mouth as needed (cold sysmptoms). BETAMETHASONE DIPROPIONATE 0.05 % CREAM Apply topically as needed for Other. Apply sparingly. CHILDRENS ASPIRIN 81 MG CHEWABLE TABLET 81 mg, ORAL, DAILY, Refills: 0, 02/06/09 18:34:01, Substitution Permitted, current med (Hx) CIALIS 20 MG TABLET 1 tablet, ORAL, DAILY, PRN [id number], 02/08/10 8:24:43 DOCUSATE SODIUM (COLACE) 50 MG CAPSULE 1-2 tablet PO daily HYDROCODONE-ACETAMINOPHEN (NORCO) 10-325 MG PER TABLET Take 1 Tab by mouth every six hours as needed. Acetaminophen should be limited to 4000 mg per day. METFORMIN (GLUCOPHAGE) 1000 MG TABLET TAKE ONE TABLET BY MOUTH TWICE DAILY METOPROLOL TARTRATE (LOPRESSOR) 25 MG TABLET Take 1 Tab by mouth two times a day. MULTIVITAMIN (TAB-A-LISA) TABS 1 tablet, ORAL, DAILY, Refills: 0, 02/06/09 18:34:57, Substitution Permitted, current med (Hx) OMEGA-3 FATTY ACID (FISH OIL) 1000 MG CAPSULE Take 1 Cap by mouth one time a day. OMEPRAZOLE MAGNESIUM DELAYED RELEASE (PRILOSEC OTC) 20 MG TABLET Take 1 Tab by mouth one time a day. Tablet should be swallowed whole; do not crush or chew. ZINC 50 MG TABS Take 1 Tab by mouth one time a day. Modified Medications No medications on file Discontinued Medications No medications on file Triage medications were reviewed but may be inaccurate. Past Medical History: Past Medical History Diagnosis Date ??? Diabetes mellitus type II ??? Obstructive sleep apnea ??? Hypertension ??? Obesity ??? Pancreatitis, acute 09/22/2011 ??? Eczema Hands and elbows Past Surgical History: Past Surgical History Procedure Date ??? Knee arthroscopy Both knees; ACL repair left; Meniscus on the right ??? Lap,cholecystectomy 09/25/11 with cholangioram Family History: His family history includes Cancer in his brother and father; Cardiovascular Diseasein his brother; Diabetes in an unspecified family member; GI Disease in his sister; Leukemia in his mother; Musculo-skeletal Disease in his sister; and Parkinson's Disease in his father. Social History: He reports that he has never smoked. He has never used smokeless tobacco. He reportsthat he does not drink alcohol or use illicit drugs. Exam: BP 233/125 Pulse 78 Temp(Src) 98.1 ??F (36.7 ??C) (Oral) Resp 24 Ht 1.778 m (5' 10) Wt 116.574 kg (257 lb) BMI 36.88 kg/m2 SpO2 99% Physical Exam Constitutional: He is oriented to person, place, and time. He appears well- developed and well-nourished. No distress. HENT: Head: Normocephalic and atraumatic. Right Ear: External ear normal. Left Ear: External ear normal. Mouth/Throat: No oropharyngeal exudate. Eyes: Conjunctivae and EOM are normal. Pupils are equal, round, and reactive to light. Neck: Normal range of motion. Neck supple. No tracheal deviation present. No thyromegaly present. Cardiovascular: Normal rate and normal heart sounds. Exam reveals no gallop and no friction rub. No murmur heard. Pulmonary/Chest: Effort normal and breath sounds normal. No respiratory distress. He has no wheezes.He has no rales. Abdominal: Soft. Bowel sounds are normal. He exhibits no distension and no mass. There is tenderness. There is no rebound and no guarding. Musculoskeletal: Normal range of motion. He exhibits no edema and no tenderness. Neurological: He is alert and oriented to person, place, and time. No cranial nerve deficit. He exhibits normal muscle tone. Coordination normal. Skin: Skin is warm and dry. No rash noted. No erythema. Psychiatric: He has a normal mood and affect. His behavior is normal. Judgment and thought content normal. Lab Results: Results for orders placed during the hospital encounter of 10/02/11 HEMOGRAM/DIFF Component Value Range WBC 12.6 (*) 3.4 - 10.7 (109/L) RBC 4.86 4.20 - 5.90 (1012/L) HGB 14.5 13.0 - 17.0 (g/dL) HCT 42.0 37.5 - 51.0 (%) MCV 86.4 82.0 - 99.0 (fL) MCH 29.9 27.0 - 34.0 (pg) MCHC 34.6 32.0 - 35.7 (g/dL) RDW 13.5 11.0 - 15.0 (%) PLT 231 150 - 400 (109/L) COMPR MET PANEL Component Value Range SODIUM 143 136 - 143 (mEq/L) POTASSIUM 4.4 3.6 - 5.0 (mEq/L) CHLORIDE 104 98 - 107 (mEq/L) CO2 27 22 - 31 (mEq/L) GLUCOSE 139 (*) 70 - 99 (mg/dL) BUN 16 7 - 21 (mg/dL) CREATININE 1.13 0.66 - 1.25 (mg/dL) GFR CALC >60 CALCIUM 9.2 8.5 - 10.6 (mg/dL) PROTEIN, TOTAL 7.5 6.3 - 8.2 (gm/dL) ALBUMIN 4.3 3.5 - 5.0 (gm/dL) ALK PHOSPHATASE 90 38 - 126 (IU/L) ALT(SGPT) 53 7 - 56 (IU/L) AST(SGOT) 37 15 - 59 (IU/L) TOTAL BILIRUBIN 0.7 0.0 - 1.2 (mg/dL) ANION GAP 16 TROPONIN I Component Value Range TROPONIN I 0.006 0.000 - 0.100 (ng/mL) DIFFERENTIAL Component Value Range NEUTROPHIL % 86.0 (*) 40.0 - 80.0 (%) LYMPHOCYTE % 8.5 (*) 10.0 - 44.0 (%) MONOCYTE % 4.5 3.0 - 15.0 (%) EOSINOPHIL % 0.6 0.0 - 8.0 (%) BASOPHIL % 0.4 0.0 - 3.0 (%) NEUTROPHIL ABS 10.8 (*) 1.7 - 8.5 (109/L) LYMPHOCYTE ABS 1.1 0.9 - 3.6 (109/L) MONOCYTE ABS 0.6 0.3 - 1.0 (109/L) EOSINOPHIL ABS 0.1 0.0 - 0.6 (109/L) BASOPHIL ABS 0.1 0.0 - 0.3 (109/L) LIPASE Component Value Range LIPASE 1597 (*) 23 - 203 (IU/L) LACTIC ACID, LOUISE Component Value Range LACTIC ACID, LOUISE 1.1 0.7 - 2.1 (mmol/L) UA TO CULTUR PRN Component Value Range Type CVMS COLOR YELLOW CLARITY CLEAR SPECIFIC GRAVITY >=1.030 PH URINE 5.5 LEUK ESTERASE Neg NITRITE Neg PROTEIN Neg GLUCOSE URINE Neg KETONE Neg Microscopic Exam: Not Indicated URINE WBC Not Indicated URINE RBC Not Indicated Urine Culture Reflex Not Indicated Narrative: Urinalysis will reflex to a culture if there are greater than 10 WBC's on the m Lab results are reviewed as documented in the electronic chart. Rad Results: Xr Chest 2v 10/02/2011 TWO VIEWS OF THE CHEST 10/02/2011 HISTORY: Chest pain. COMPARISON: 09/20/2011 FINDINGS: Lung volumes are low, accentuating lung markings. No acute airspace opacity. No pleural effusion. Heart size and pulmonary vasculature are within normal limits. 10/02/2011 No acute cardiopulmonary finding. Us Gallbladder Ruq 10/02/2011 RIGHT UPPER QUADRANT ULTRASOUND FINDINGS: Significantly limited right upper quadrant due to shadowing bowel gas. Presumed fatty infiltration of the liver. There is no evidence for intrahepatic biliary ductal dilatation. Status post cholecystectomy one week ago. There is no evidence of focalfluid collection within the gallbladder fossa. The common bile duct measures 6 mm in double wall thickness without evidence for filling defect. Pancreas is not well-visualized due to shadowing bowel gas. There is no free fluid collection by ultrasound. The right kidney appears to be unremarkable. Nonaneurysmal aorta. 10/02/2011 No definite fluid collection within the gallbladder fossa. Common bile duct measures 6 mm. Radiographs interpreted by the ED physician will be over-read by a radiologist and the results will be available in the electronic chart. Other Results: Emergency Department Course: Patient was seen and evaluated for abdominal pain in the emergency department. History of recent cholecystectomy and pancreatitis noted. Workup was performed which showed acute pancreatitis, normal LFTs, mildly elevated white blood cell count. Gallbladder ultrasound was performed which showed common bile duct upper limits of normal at 6 mm. The etiology of patient's pancreatitis is not readily apparent at this time. GI consultation was obtained from Dr. Dominguez's, who recommended admission for observation in the hospital with further testing to evaluate the etiology of patient's pancreatitis. Patient was hydrated with 500 cc normal saline, and was given 1.5 mg IV Dilaudid. Patient reported improvement in abdominal pain during the course of his ER evaluation. Patient's presenting complaints and clinical impression discussed with hospitalist attending. Patient was admitted to the floor, and transferred to the floor in stable and improved condition. Patient voiced full understanding and agreement with treatment plans. Procedures: Procedures Assessment: 577.0 Acute pancreatitis Plan: Admit to floor. [facility] Morgan Storm MD 10/02/11 1535 ORTABILITY ENGINEER Elizabeth Mccain RN - 10/02/2011 9:04 AM CST 61 y/o M here with c/o RUQ pain radiating into chest that started yest about noon and progressively getting worse. Did not sleep well because of pain which continues this AM. No SOB, diaphoresis, or nausea with pain. States pain feels like pain he had with pancreatitis. Sridhar Gonzalez RN - 10/02/2011 8:56 AM CST Chest pain, s/p lap mark and pancreatitis. ORTABILITY ENGINEER documented in this encounter Miscellaneous Notes Plan of Care - Valerie Swanson MD - 10/08/2011 8:46 AM CST ORTABILITY ENGINEER documented in this encounter Plan of Treatment Not on filedocumented as of this encounter Procedures Procedure Name Priority Date/Time Associated Diagnosis Comme nts GLUCOSE, METER 10/07/2011 6:12 Results fo r this AM SUPPORTABILITY ENGINEER procedure are i n the results section. LIPASE Routine 10/07/2011 6:11 Results for this AM SUPPORTABILITY ENGINEER procedure are i n the results section. AMYLASE Routine 10/07/2011 6:11 Results for this AM SUPPORTABILITY ENGINEER procedure are i n the results section. GLUCOSE, METER 10/06/2011 8:53 Results fo r this PM SUPPORTABILITY ENGINEER procedure are i n the results section. GLUCOSE, METER 10/06/2011 4:51 Results fo r this PM SUPPORTABILITY ENGINEER procedure are i n the results section. GLUCOSE, METER 10/06/2011 11:45 Results f or this AM SUPPORTABILITY ENGINEER procedure are i n the results section. GLUCOSE, METER 10/06/2011 6:25 Results fo r this AM SUPPORTABILITY ENGINEER procedure are i n the results section. BASIC METABOLIC PANEL Routine 10/06/2011 6:02 Res ults for this AM SUPPORTABILITY ENGINEER procedure are i n the results section. HEPATIC FUNCTION PANEL Routine 10/06/2011 6:02 Re sults for this AM SUPPORTABILITY ENGINEER procedure are i n the results section. HEMOGRAM Routine 10/06/2011 6:02 Results for this AM SUPPORTABILITY ENGINEER procedure are i n the results section. LIPASE Routine 10/06/2011 6:02 Results for this AM SUPPORTABILITY ENGINEER procedure are i n the results section. GLUCOSE, METER 10/05/2011 8:55 Results fo r this PM SUPPORTABILITY ENGINEER procedure are i n the results section. GLUCOSE, METER 10/05/2011 4:37 Results fo r this PM SUPPORTABILITY ENGINEER procedure are i n the results section. GLUCOSE, METER 10/05/2011 11:22 Results f or this AM SUPPORTABILITY ENGINEER procedure are i n the results section. GLUCOSE, METER 10/05/2011 6:34 Results fo r this AM SUPPORTABILITY ENGINEER procedure are i n the results section. GLUCOSE, METER 10/04/2011 9:04 Results fo r this PM SUPPORTABILITY ENGINEER procedure are i n the results section. GLUCOSE, METER 10/04/2011 5:28 Results fo r this PM SUPPORTABILITY ENGINEER procedure are i n the results section. GLUCOSE, METER 10/04/2011 11:51 Results f or this AM SUPPORTABILITY ENGINEER procedure are i n the results section. GLUCOSE, METER 10/04/2011 6:47 Results fo r this AM SUPPORTABILITY ENGINEER procedure are i n the results section. DIFFERENTIAL 10/04/2011 6:05 Results for this AM SUPPORTABILITY ENGINEER procedure are i n the results section. COMPREHENSIVE Routine 10/04/2011 6:05 Results for this METABOLIC PANEL AM SUPPORTABILITY ENGINEER procedure ar e in the results section. HEMOGRAM/DIFF Routine 10/04/2011 6:05 Results for this AM SUPPORTABILITY ENGINEER procedure are i n the results section. LIPASE Routine 10/04/2011 6:05 Results for this AM SUPPORTABILITY ENGINEER procedure are i n the results section. GLUCOSE, METER 10/03/2011 9:20 Results fo r this PM SUPPORTABILITY ENGINEER procedure are i n the results section. GLUCOSE, METER 10/03/2011 5:04 Results fo r this PM SUPPORTABILITY ENGINEER procedure are i n the results section. GLUCOSE, METER 10/03/2011 12:12 Results f or this PM SUPPORTABILITY ENGINEER procedure are i n the results section. MR ABDOMEN WO CONTRAST Routine 10/03/2011 9:13 Re sults for this AM SUPPORTABILITY ENGINEER procedure are i n the results section. DIFFERENTIAL 10/03/2011 6:30 Results for this AM SUPPORTABILITY ENGINEER procedure are i n the results section. COMPREHENSIVE Routine 10/03/2011 6:30 Results for this METABOLIC PANEL AM SUPPORTABILITY ENGINEER procedure ar e in the results section. HEMOGRAM/DIFF Routine 10/03/2011 6:30 Results for this AM SUPPORTABILITY ENGINEER procedure are i n the results section. GLUCOSE, METER 10/03/2011 6:18 Results fo r this AM SUPPORTABILITY ENGINEER procedure are i n the results section. DIFFERENTIAL 10/03/2011 1:08 Results for this AM SUPPORTABILITY ENGINEER procedure are i n the results section. CULTURE, BLOOD STAT 10/03/2011 1:08 Results fo r this BACTERIAL AM SUPPORTABILITY ENGINEER procedure are i n the results section. COMPREHENSIVE STAT 10/03/2011 1:08 Results for this METABOLIC PANEL AM SUPPORTABILITY ENGINEER procedure ar e in the results section. HEMOGRAM/DIFF STAT 10/03/2011 1:08 Results for this AM SUPPORTABILITY ENGINEER procedure are i n the results section. LACTIC ACID, VENOUS STAT 10/03/2011 1:08 Resul ts for this AM SUPPORTABILITY ENGINEER procedure are i n the results section. GLUCOSE, METER 10/02/2011 9:01 Results fo r this PM SUPPORTABILITY ENGINEER procedure are i n the results section. GLUCOSE, METER 10/02/2011 4:46 Results fo r this PM SUPPORTABILITY ENGINEER procedure are i n the results section. US GALLBLADDER RUQ STAT 10/02/2011 10:55 Resul ts for this AM SUPPORTABILITY ENGINEER procedure are i n the results section. URINALYSIS, REFLEX TO STAT 10/02/2011 9:50 Res ults for this CULTURE AM SUPPORTABILITY ENGINEER procedure are i n the results section. XR CHEST 2 VIEWS STAT 10/02/2011 9:37 Results for this AM SUPPORTABILITY ENGINEER procedure are i n the results section. LACTIC ACID, VENOUS STAT 10/02/2011 9:24 Resul ts for this AM SUPPORTABILITY ENGINEER procedure are i n the results section. EKG 12-LEAD STAT 10/02/2011 9:02 Acute pancreatitis Result s for this AM SUPPORTABILITY ENGINEER procedure are i n the results section. DIFFERENTIAL 10/02/2011 9:02 Results for this AM SUPPORTABILITY ENGINEER procedure are i n the results section. COMPREHENSIVE STAT 10/02/2011 9:02 Results for this METABOLIC PANEL AM SUPPORTABILITY ENGINEER procedure ar e in the results section. TROPONIN I STAT 10/02/2011 9:02 Results for this AM SUPPORTABILITY ENGINEER procedure are i n the results section. HEMOGRAM/DIFF STAT 10/02/2011 9:02 Results for this AM SUPPORTABILITY ENGINEER procedure are i n the results section. LIPASE STAT 10/02/2011 9:02 Results for this AM SUPPORTABILITY ENGINEER procedure are i n the results section. documented in this encounter Results (ABNORMAL) GLUCOSE, METER (10/07/2011 6:12 AM SUPPORTABILITY ENGINEER) P athologist Signature GLUCOSE, METER 152 (H) 70 - 99 [place] mg/dL [facility] Specimen Anatomical Collection Method Collection Time Receive d Time (Source) Location / / Volume Laterality 10/07/2011 6:12 AM 1 6:20 SUPPORTABILITY ENGINEER AM SUPPORTABILITY ENGINEER Morgan Storm MD EC CHEMISTRY ORDERABLES Performing Organization Address City/State/ZIP Code Phon e Number [facility] LIPASE (10/07/2011 6:11 AM SUPPORTABILITY ENGINEER) P athologist Signature LIPASE 55 23 - 203 [place] IU/L LABORATORY Specimen Anatomical Collection Method Collection Time Receive d Time (Source) Location / / Volume Laterality 10/07/2011 6:11 AM 1 6:40 SUPPORTABILITY ENGINEER AM SUPPORTABILITY ENGINEER Luis Laughlin MD EC CHEMISTRY ORDERABLES Performing Organization Address City/State/ZIP Code Phon e Number [facility] AMYLASE (10/07/2011 6:11 AM SUPPORTABILITY ENGINEER) P athologist Signature AMYLASE <30 30 - 110 [facility] [facility]L [facility] Specimen Anatomical Collection Method Collection Time Receive d Time (Source) Location / / Volume Laterality 10/07/2011 6:11 AM 1 6:40 SUPPORTABILITY ENGINEER AM SUPPORTABILITY ENGINEER Luis Laughlin MD EC CHEMISTRY ORDERABLES Performing Organization Address City/[facility]/ZIP Code Phon e Number [facility] (ABNORMAL) GLUCOSE, METER (10/06/2011 8:53 PM SUPPORTABILITY ENGINEER) P athologist Signature GLUCOSE, METER 124 (H) 70 - 99 [place] mg/dL LABORATORY Specimen Anatomical Collection Method Collection Time Receive d Time (Source) Location / / Volume Laterality 10/06/2011 8:53 PM 1 9:00 SUPPORTABILITY ENGINEER PM SUPPORTABILITY ENGINEER Morgan Storm MD EC CHEMISTRY ORDERABLES Performing Organization Address City/[facility]/ZIP Code Phon e Number [facility] (ABNORMAL) GLUCOSE, METER (10/06/2011 4:51 PM SUPPORTABILITY ENGINEER) P athologist Signature GLUCOSE, METER 158 (H) 70 - 99 [place] mg/dL LABORATORY Specimen Anatomical Collection Method Collection Time Receive d Time (Source) Location / / Volume Laterality 10/06/2011 4:51 PM 1 5:10 SUPPORTABILITY ENGINEER PM SUPPORTABILITY ENGINEER Morgan Storm MD EC CHEMISTRY ORDERABLES Performing Organization Address City/State/ZIP Code Phon e Number [facility] (ABNORMAL) GLUCOSE, METER (10/06/2011 11:45 AM SUPPORTABILITY ENGINEER) P athologist Signature GLUCOSE, METER 141 (H) 70 - 99 [place] mg/dL LABORATORY Specimen Anatomical Collection Method Collection Time Receive d Time (Source) Location / / Volume Laterality 10/06/2011 11:45 10/06/2011 AM SUPPORTABILITY ENGINEER 11:50 AM SUPPORTABILITY ENGINEER Morgan Storm MD EC CHEMISTRY ORDERABLES Performing Organization Address [facility] Phon e Number [facility] (ABNORMAL) GLUCOSE, METER (10/06/2011 6:25 AM SUPPORTABILITY ENGINEER) P athologist Signature GLUCOSE, METER 128 (H) 70 - 99 [place] mg/dL LABORATORY Specimen Anatomical Collection Method Collection Time Receive d Time (Source) Location / / Volume Laterality 10/06/2011 6:25 AM 1 7:00 SUPPORTABILITY ENGINEER AM SUPPORTABILITY ENGINEER Morgan Storm MD EC CHEMISTRY ORDERABLES Performing Organization Address [facility] Phon e Number [facility] (ABNORMAL) HEPATIC PROFILE (10/06/2011 6:02 AM SUPPORTABILITY ENGINEER) Patholo gist Method Time Signature Albumin 2.7 (L) 3.5 - 5.0 [place] gm/dL LABORATORY TOTAL BILIRUBIN 0.5 0.0 - 1.2 [place] mg/dL LABORATORY DIRECT BILIRUBIN 0.0 0.0 - 0.3 [place] mg/dL LAB[facility]ORY Bilirubin, 0.5 0.0 - 1.1 [place] Indirect mg/dL LABORATORY ALK PHOSPHATASE 62 38 - 126 [facility] [facility] Protein, Total 5.1 (L) 6.3 - 8.2 [place] gm/dL LAB[facility]ORY ALT(SGPT) 34 7 - 56 [facility] [facility] AST(SGOT) 14 (L) 15 - 59 [place] [facility] Specimen Anatomical Collection Method Collection Time Receive d Time (Source) Location / / Volume Laterality 10/06/2011 6:02 AM 1 6:24 SUPPORTABILITY ENGINEER AM SUPPORTABILITY ENGINEER Eduardo Pinto MD EC CHEMISTRY ORDERABLES Performing Organization Address [facility] Phon e Number [facility] (ABNORMAL) BASIC MET PROF (10/06/2011 6:02 AM SUPPORTABILITY ENGINEER) P athologist Signature Creatinine 1.02 0.66 - 1.25 [place] mg/dL [facility]ORY GFR CALC >60 [facility] Comment: GFR Normal: >60 mL/min/1.73 m2 SODIUM 140 136 - 143 mEq/L [facility] POTASSIUM 4.0 3.6 - 5.0 mEq/L [facility] Chloride 108 (H) 98 - 107 mEq/L [facility] [facility] CO2 23 22 - 31 mEq/L [place] [facility] ORY BUN 10 7 - 21 mg/dL [facility] LABORATO RY Calcium 8.3 (L) 8.5 - 10.6 mg/dL [facility] LABO RATORY ANION GAP 13 [facility] GLUCOSE 108 (H) 70 - 99 mg/dL [facility] LABORAT ORY Specimen Anatomical Collection Method Collection Time Receive d Time (Source) Location / / Volume Laterality 10/06/2011 6:02 AM 1 6:24 SUPPORTABILITY ENGINEER AM SUPPORTABILITY ENGINEER Eduardo Pinto MD EC CHEMISTRY ORDERABLES Performing Organization Address City/State/ZIP Code Phon e Number [facility] (ABNORMAL) HEMOGRAM (10/06/2011 6:02 AM SUPPORTABILITY ENGINEER) P athologist Signature WBC 5.7 3.4 - 10.7 [facility] 109/L LABORATORY RBC 3.64 (L) 4.20 - 5.90 [facility] HGB 10.9 (L) 13.0 - 17.0 [facility] g/dL LABORATORY HCT 31.7 (L) 37.5 - 51.0 [facility] % LABORATORY MCV 87.0 82.0 - 99.0 [facility] fL LABORATORY MCH 30.0 27.0 - 34.0 [facility] pg LABORATORY MCHC 34.5 32.0 - 35.7 [place] g/dL LABORATORY RDW 13.3 11.0 - 15.0 [facility] % LABORATORY PLT 189 150 - 400 [facility] 109/L LABORATORY Specimen Anatomical Collection Method Collection Time Receive d Time (Source) Location / / Volume Laterality 10/06/2011 6:02 AM 1 6:24 SUPPORTABILITY ENGINEER AM SUPPORTABILITY ENGINEER Eduardo Pinto MD EC HEMATOLOGY ORDERABLES Performing Organization Address City/State/ZIP Code Phon e Number [facility] LAB[facility] LIPASE (10/06/2011 6:02 AM SUPPORTABILITY ENGINEER) athologist Signature LIPASE 44 23 - 203 [place] [facility] Specimen Anatomical Collection Method Collection Time Receive d Time (Source) Location / / Volume Laterality 10/06/2011 6:02 AM 1 6:24 SUPPORTABILITY ENGINEER AM SUPPORTABILITY ENGINEER Eduardo Pinto MD EC CHEMISTRY ORDERABLES Performing Organization Address City/State/ZIP Code Phon e Number [facility] (ABNORMAL) GLUCOSE, METER (10/05/2011 8:55 PM SUPPORTABILITY ENGINEER) P athologist Signature GLUCOSE, METER 117 (H) 70 - 99 [place] mg/dL LAB[facility]ATORY Specimen Anatomical Collection Method Collection Time Receive d Time (Source) Location / / Volume Laterality 10/05/2011 8:55 PM 1 9:00 SUPPORTABILITY ENGINEER PM SUPPORTABILITY ENGINEER Morgan Storm MD EC CHEMISTRY ORDERABLES Performing Organization Address City/[facility] Phon e Number [facility] (ABNORMAL) GLUCOSE, METER (10/05/2011 4:37 PM SUPPORTABILITY ENGINEER) P athologist Signature GLUCOSE, METER 139 (H) 70 - 99 [place] mg/dL LABORATORY Specimen Anatomical Collection Method Collection Time Receive d Time (Source) Location / / Volume Laterality 10/05/2011 4:37 PM 1 4:45 SUPPORTABILITY ENGINEER PM SUPPORTABILITY ENGINEER Morgan Storm MD EC CHEMISTRY ORDERABLES Performing Organization Address [facility] Phon e Number [facility] (ABNORMAL) GLUCOSE, METER (10/05/2011 11:22 AM SUPPORTABILITY ENGINEER) P athologist Signature GLUCOSE, METER 122 (H) 70 - 99 [place] mg/dL LAB[facility]ATORY Specimen Anatomical Collection Method Collection Time Receive d Time (Source) Location / / Volume Laterality 10/05/2011 11:22 10/05/2011 AM SUPPORTABILITY ENGINEER 11:30 AM SUPPORTABILITY ENGINEER Morgan Storm MD EC CHEMISTRY ORDERABLES Performing Organization Address [facility] Phon e Number [facility] (ABNORMAL) GLUCOSE, METER (10/05/2011 6:34 AM SUPPORTABILITY ENGINEER) P athologist Signature GLUCOSE, METER 125 (H) 70 - 99 [place] mg/dL LABORATORY Specimen Anatomical Collection Method Collection Time Receive d Time (Source) Location / / Volume Laterality 10/05/2011 6:34 AM 1 6:40 SUPPORTABILITY ENGINEER AM SUPPORTABILITY ENGINEER Morgan Storm MD EC CHEMISTRY ORDERABLES Performing Organization Address City/[facility] Phon e Number [facility] (ABNORMAL) GLUCOSE, METER (10/04/2011 9:04 PM SUPPORTABILITY ENGINEER) P athologist Signature GLUCOSE, METER 131 (H) 70 - 99 [place] mg/dL LAB[facility]ATORY Specimen Anatomical Collection Method Collection Time Receive d Time (Source) Location / / Volume Laterality 10/04/2011 9:04 PM 1 9:10 SUPPORTABILITY ENGINEER PM SUPPORTABILITY ENGINEER Morgan Storm MD EC CHEMISTRY ORDERABLES Performing Organization Address [facility] Phon e Number [facility] (ABNORMAL) GLUCOSE, METER (10/04/2011 5:28 PM SUPPORTABILITY ENGINEER) P athologist Signature GLUCOSE, METER 118 (H) 70 - 99 [place] mg/dL LABORATORY Specimen Anatomical Collection Method Collection Time Receive d Time (Source) Location / / Volume Laterality 10/04/2011 5:28 PM 1 5:35 SUPPORTABILITY ENGINEER PM SUPPORTABILITY ENGINEER Morgan Storm MD EC CHEMISTRY ORDERABLES Performing Organization Address [facility] Phon e Number [facility] (ABNORMAL) GLUCOSE, METER (10/04/2011 11:51 AM SUPPORTABILITY ENGINEER) athologist Signature GLUCOSE, METER 148 (H) 70 - 99 [place] mg/dL LAB[facility]ORY Specimen Anatomical Collection Method Collection Time Receive d Time (Source) Location / / Volume Laterality 10/04/2011 11:51 10/04/2011 AM SUPPORTABILITY ENGINEER 11:55 AM SUPPORTABILITY ENGINEER Morgan Storm MD EC CHEMISTRY ORDERABLES Performing Organization Address [facility] Code Phon e Number [facility] (ABNORMAL) GLUCOSE, METER (10/04/2011 6:47 AM SUPPORTABILITY ENGINEER) athologist Signature GLUCOSE, METER 151 (H) 70 - 99 [place] mg/dL LAB[facility] Specimen Anatomical Collection Method Collection Time Receive d Time (Source) Location / / Volume Laterality 10/04/2011 6:47 AM 1 7:05 SUPPORTABILITY ENGINEER AM SUPPORTABILITY ENGINEER Morgan Storm MD EC CHEMISTRY ORDERABLES Performing Organization Address [facility] Phon e Number [facility] (ABNORMAL) DIFFERENTIAL (10/04/2011 6:05 AM SUPPORTABILITY ENGINEER) [facility] gist Method Time Signature NEUTROPHIL % 88.0 (H) 40.0 - [place] 80.0 % LABORATORY LYMPHOCYTE % 5.2 (L) 10.0 - [place] 44.0 % LABORATORY MONOCYTE % 6.3 3.0 - 15.0 [facility] EOSINOPHIL % 0.3 0.0 - 8.0 [place] % LABORATORY BASOPHIL % 0.2 0.0 - 3.0 [place] % LABORATORY NEUTROPHIL ABS 12.4 (H) 1.7 - 8.5 [place] 109/L LABORATORY LYMPHOCYTE ABS 0.7 (L) 0.9 - 3.6 [place] 109/L LABORATORY MONOCYTE ABS 0.9 0.3 - 1.0 [place] 109/L LABORATORY EOSINOPHIL ABS 0.0 0.0 - 0.6 [place] 109/L LABORATORY BASOPHIL ABS 0.0 0.0 - 0.3 [place] 109/L LABORATORY Specimen Anatomical Collection Method Collection Time Receive d Time (Source) Location / / Volume Laterality 10/04/2011 6:05 AM 1 6:32 SUPPORTABILITY ENGINEER AM SUPPORTABILITY ENGINEER Valerie Gonzalez MD EC LABORATORY Performing Organization Address City/State/ZIP Code Phon e Number [facility] LAB[facility] LIPASE (10/04/2011 6:05 AM SUPPORTABILITY ENGINEER) athologist Signature LIPASE 154 23 - 203 [place] [facility] Specimen Anatomical Collection Method Collection Time Receive d Time (Source) Location / / Volume Laterality 10/04/2011 6:05 AM 1 6:32 SUPPORTABILITY ENGINEER AM SUPPORTABILITY ENGINEER Valerie Gonzalez MD EC CHEMISTRY ORDERABLES Performing Organization Address City/State/ZIP Code Phon e Number [facility] (ABNORMAL) HEMOGRAM/DIFF (10/04/2011 6:05 AM SUPPORTABILITY ENGINEER) P athologist Signature WBC 14.1 (H) 3.4 - 10.7 [place] 109/L LABOR[facility] RBC 4.01 (L) 4.20 - 5.90 [place] 1012/L LABORATORY HGB 11.5 (L) 13.0 - 17.0 [place] g/dL LABORATORY HCT 34.9 (L) 37.5 - 51.0 [facility] LAB[facility] MCV 87.0 82.0 - 99.0 [facility] fL LABORATORY MCH 28.6 27.0 - 34.0 [facility] pg LABORATORY MCHC 32.9 32.0 - 35.7 [place] g/dL LABORATORY RDW 13.5 11.0 - 15.0 [facility] LAB[facility]ORY PLT 156 150 - 400 [place] 109/L LABORATORY Specimen Anatomical Collection Method Collection Time Receive d Time (Source) Location / / Volume Laterality 10/04/2011 6:05 AM 1 6:32 SUPPORTABILITY ENGINEER AM SUPPORTABILITY ENGINEER Valerie Gonzalez MD EC HEMATOLOGY ORDERABLES Performing Organization Address City/[facility]/ZIP Code Phon e Number [facility] (ABNORMAL) COMPR MET PANEL (10/04/2011 6:05 AM SUPPORTABILITY ENGINEER) P athologist Signature SODIUM 137 136 - 143 [place] mEq/L LABORATORY POTASSIUM 4.1 3.6 - 5.0 [place] mEq/L LABOR[facility]ORY Chloride 103 98 - 107 [place] mEq/L LABOR[facility] CO2 25 22 - 31 [place] mEq/L LAB[facility]ORY GLUCOSE 130 (H) 70 - 99 [place] mg/dL LABORATORY BUN 11 7 - 21 [place] mg/dL LAB[facility]ATORY Creatinine 0.99 0.66 - 1.25 [place] mg/dL LABORATORY GFR CALC >60 [facility] Comment: GFR Normal: >60 mL/min/1.73 m2 Calcium 8.5 8.5 - 10.6 mg/dL [facility] Protein, Total 5.5 (L) 6.3 - 8.2 gm/dL [facility] Albumin 3.0 (L) 3.5 - 5.0 gm/dL [facility] [facility] ALK PHOSPHATASE 72 38 - 126 IU/L [facility] L AB[facility] ALT(SGPT) 51 7 - 56 IU[facility]L [facility] Y AST(SGOT) 19 15 - 59 IU/L [facility] RY TOTAL BILIRUBIN 0.7 0.0 - 1.2 mg/dL [facility] LAB[facility] ANION GAP 13 [facility] Specimen Anatomical Collection Method Collection Time Receive d Time (Source) Location / / Volume Laterality 10/04/2011 6:05 AM 1 6:32 SUPPORTABILITY ENGINEER AM SUPPORTABILITY ENGINEER Valerie Gonzalez MD EC CHEMISTRY ORDERABLES Performing Organization Address City/[facility]/ZIP Code Phon e Number [facility] (ABNORMAL) GLUCOSE, METER (10/03/2011 9:20 PM SUPPORTABILITY ENGINEER) P athologist Signature GLUCOSE, METER 153 (H) 70 - 99 [place] mg/dL LABORATORY Specimen Anatomical Collection Method Collection Time Receive d Time (Source) Location / / Volume Laterality 10/03/2011 9:20 PM 1 9:25 SUPPORTABILITY ENGINEER PM SUPPORTABILITY ENGINEER Morgan Storm MD EC CHEMISTRY ORDERABLES Performing Organization Address [facility] Phon e Number [facility] (ABNORMAL) GLUCOSE, METER (10/03/2011 5:04 PM SUPPORTABILITY ENGINEER) P athologist Signature GLUCOSE, METER 158 (H) 70 - 99 [place] mg/dL LABORATORY Comment: Treat Patient Specimen Anatomical Collection Method Collection Time Receive d Time (Source) Location / / Volume Laterality 10/03/2011 5:04 PM 1 5:10 SUPPORTABILITY ENGINEER PM SUPPORTABILITY ENGINEER Morgan Storm MD EC CHEMISTRY ORDERABLES Performing Organization Address [facility] Phon e Number [facility] (ABNORMAL) GLUCOSE, METER (10/03/2011 12:12 PM SUPPORTABILITY ENGINEER) P athologist Signature GLUCOSE, METER 147 (H) 70 - 99 [place] mg/dL LABORATORY Specimen Anatomical Collection Method Collection Time Receive d Time (Source) Location / / Volume Laterality 10/03/2011 12:12 10/03/2011 PM SUPPORTABILITY ENGINEER 12:20 PM SUPPORTABILITY ENGINEER Morgan Storm MD EC CHEMISTRY ORDERABLES Performing Organization Address [facility] Phon e Number [facility] MR ABDOMEN WO CONTRAST (10/03/2011 9:13 AM SUPPORTABILITY ENGINEER) Anatomical Region Laterality Modality Abdomen Magnetic Resonance Specimen (Source) Anatomical Location Collection Method / Collectio n Time Received Time / Laterality Volume Impressions 10/03/2011 8:07 PM SUPPORTABILITY ENGINEER ?? 1. ??No intrahepatic and extrahepatic bi liary ductal dilatation. ??No filling defect is identified. ?? 2. ??No pancreas divisum. 3. ??Mild inflammatory changes about the pancreas, consistent with patient's history of pancreatitis. ??No evidence for discrete pseudocyst formation. Narrative 10/03/2011 8:07 PM SUPPORTABILITY ENGINEER MRCP 10/03/2011 HISTORY: ??Recurrent pancreatitis. COMPARISON: ??Ultrasound from 10/02/2011 and intraoperative cholangiogram 09/25/2011. ?? FINDINGS: ??Mild dependent atelectasis i n the lung bases. ??Heart size is prominent. ??T2 hyperintense lesions wit hin both kidneys, likely peripelvic and renal cortical cysts, incompletely c haracterized on this examination. ?? There are mild inflammatory changes in t he gallbladder fossa without discrete fluid collection. ??There is fl uid about the pancreas, particularly the head of the pancreas. ? ?These inflammatory changes extend into the central mesentery. ??No discret e walled-off fluid collection. ?? MRCP images demonstrate no intrahepatic or extrahepatic biliary ductal dilatation. ??There is a common biliary variant of the biliary tree with the right posterior duct emptying into t he left hepatic duct. ??Common hepatic duct measures 5 mm in caliber. ? ?Common bile duct measures 6 mm in caliber. ??No filling defect is identifi ed. ??There is no pancreas divisum. ?? Main pancreatic duct is normal in calibe r. ?? Procedure Note Pennie Kwan MD - 10/03/2011 MRCP 10/03/2011 HISTORY: Recurrent pancreatitis. COMPARISON: Ultrasound from 10/02/2011 a nd intraoperative cholangiogram 09/25/2011. FINDINGS: Mild dependent atelectasis in the lung bases. Heart size is prominent. T2 hyperintense lesions within both kidneys, likely peripelvic and renal cortical cysts, incompletely characterized on this examination. There are mild inflammatory changes in t he gallbladder fossa without discrete fluid collection. There is fluid about the pancreas, particularly the head of the pancreas. These inflammatory changes extend into the central mesentery. No discrete walled-off fluid collection. MRCP images demonstrate no intrahepatic or extrahepatic biliary ductal dilatation. There is a common biliary variant of the biliary tree with the right posterior duct emptying into the left hepatic duct. Common hepatic duct measures 5 mm in caliber. C ommon bile duct measures 6 mm in caliber. No filling defect is identified. There is no pancreas divisum. Main pancreatic duct is normal in caliber. IMPRESSION: 1. No intrahepatic and extrahepatic bili reji ductal dilatation. No filling defect is identified. 2. No pancreas divisum. 3. Mild inflammatory changes about the p ancreas, consistent with patient's history of pancreatitis. No evidence for discrete pseudocyst formation. Jovanni Cottrell MD EC MRI ORDERABLES (ABNORMAL) DIFFERENTIAL (10/03/2011 6:30 AM SUPPORTABILITY ENGINEER) Patholo gist Method Time Signature NEUTROPHIL % 88.8 (H) 40.0 - [place] 80.0 % LABORATORY LYMPHOCYTE % 3.8 (L) 10.0 - [place] 44.0 % LABORATORY MONOCYTE % 7.0 3.0 - 15.0 [place] % LABORATORY EOSINOPHIL % 0.2 0.0 - 8.0 [place] % LABORATORY BASOPHIL % 0.2 0.0 - 3.0 [place] % LABORATORY NEUTROPHIL ABS 16.5 (H) 1.7 - 8.5 [place] 109/L LABORATORY LYMPHOCYTE ABS 0.7 (L) 0.9 - 3.6 [place] 109/L LABORATORY MONOCYTE ABS 1.3 (H) 0.3 - 1.0 [place] 109/L LABORATORY EOSINOPHIL ABS 0.0 0.0 - 0.6 [place] 109/L LABORATORY BASOPHIL ABS 0.0 0.0 - 0.3 [place] 109/L LABORATORY Specimen Anatomical Collection Method Collection Time Receive d Time (Source) Location / / Volume Laterality 10/03/2011 6:30 AM 1 6:45 SUPPORTABILITY ENGINEER AM SUPPORTABILITY ENGINEER Benjamin Subramanian MD EC LABORATORY Performing Organization Address City/State/ZIP Code Phon e Number [facility] (ABNORMAL) COMPR MET PANEL (10/03/2011 6:30 AM SUPPORTABILITY ENGINEER) athologist Signature SODIUM 136 136 - 143 [place] mEq/L LABORATORY POTASSIUM 4.4 3.6 - 5.0 [place] mEq/L LABORATORY GLUCOSE 143 (H) 70 - 99 [place] mg/dL LABORATORY BUN 12 7 - 21 [place] mg/dL LABORATORY Creatinine 1.12 0.66 - 1.25 [place] mg/dL LABORATORY GFR CALC >60 [facility] Comment: GFR Normal: >60 mL/min/1.73 m2 Chloride 100 98 - 107 mEq/L [place] [facility] CO2 27 22 - 31 mEq/L [place] [facility] ORY Calcium 8.3 (L) 8.5 - 10.6 mg/dL [facility] LABO RATORY Protein, Total 6.4 6.3 - 8.2 gm/dL [facility] Albumin 3.5 3.5 - 5.0 gm/dL [place] [facility] ALK PHOSPHATASE 68 38 - 126 IU/L [facility] L ABORATORY ALT(SGPT) 43 7 - 56 IU/L [facility] LABORATOR Y AST(SGOT) 22 15 - 59 IU/L [facility] LABORATO RY TOTAL BILIRUBIN 1.2 0.0 - 1.2 mg/dL [facility] LABOR[facility]ORY ANION GAP 13 [facility] LAB[facility] Specimen Anatomical Collection Method Collection Time Receive d Time (Source) Location / / Volume Laterality 10/03/2011 6:30 AM 1 6:45 SUPPORTABILITY ENGINEER AM SUPPORTABILITY ENGINEER Benjamin Subramanian MD EC CHEMISTRY ORDERABLES Performing Organization Address City/[facility] Phon e Number [facility] (ABNORMAL) HEMOGRAM/DIFF (10/03/2011 6:30 AM SUPPORTABILITY ENGINEER) P athologist Signature WBC 18.5 (H) 3.4 - 10.7 [facility] 109/L LABORATORY RBC 4.36 4.20 - 5.90 [facility] 1012/L LABORATORY HGB 12.5 (L) 13.0 - 17.0 [facility] g/dL LABORATORY HCT 38.0 37.5 - 51.0 [facility] % LABORATORY MCV 87.1 82.0 - 99.0 [facility] fL LABORATORY MCH 28.7 27.0 - 34.0 [facility] pg LABORATORY MCHC 32.9 32.0 - 35.7 [facility] g/dL LABORATORY RDW 13.6 11.0 - 15.0 [facility] % LABORATORY PLT 177 150 - 400 [facility] 109/L LABORATORY Specimen Anatomical Collection Method Collection Time Receive d Time (Source) Location / / Volume Laterality 10/03/2011 6:30 AM 1 6:45 SUPPORTABILITY ENGINEER AM SUPPORTABILITY ENGINEER Benjamin Subramanian MD EC HEMATOLOGY ORDERABLES Performing Organization Address City/[facility]/ZIP Code Phon e Number [facility] LAB[facility] (ABNORMAL) GLUCOSE, METER (10/03/2011 6:18 AM SUPPORTABILITY ENGINEER) P athologist Signature GLUCOSE, METER 160 (H) 70 - 99 [place] mg/dL LABORATORY Comment: Notified RN Specimen Anatomical Collection Method Collection Time Receive d Time (Source) Location / / Volume Laterality 10/03/2011 6:18 AM 1 6:35 SUPPORTABILITY ENGINEER AM SUPPORTABILITY ENGINEER Morgan Storm MD EC CHEMISTRY ORDERABLES Performing Organization Address City/[facility] Phon e Number [facility] (ABNORMAL) DIFFERENTIAL (10/03/2011 1:08 AM SUPPORTABILITY ENGINEER) [facility] Method Time Signature NEUTROPHIL % 90.8 (H) 40.0 - [place] 80.0 % LABORATORY LYMPHOCYTE % 3.0 (L) 10.0 - [place] 44.0 % LABORATORY MONOCYTE % 5.9 3.0 - 15.0 [place] % LABORATORY EOSINOPHIL % 0.1 0.0 - 8.0 [place] % LABORATORY BASOPHIL % 0.2 0.0 - 3.0 [place] % LABORATORY NEUTROPHIL ABS 17.1 (H) 1.7 - 8.5 [place] 109/L LABORATORY LYMPHOCYTE ABS 0.6 (L) 0.9 - 3.6 [place] 109/L LABORATORY MONOCYTE ABS 1.1 (H) 0.3 - 1.0 [place] 109/L LABORATORY EOSINOPHIL ABS 0.0 0.0 - 0.6 [place] 109/L LABORATORY BASOPHIL ABS 0.0 0.0 - 0.3 [place] 109/L LABORATORY Specimen Anatomical Collection Method Collection Time Receive d Time (Source) Location / / Volume Laterality 10/03/2011 1:08 AM 1 1:16 SUPPORTABILITY ENGINEER AM SUPPORTABILITY ENGINEER Daniel Biggs MD EC LABORATORY Performing Organization Address City/[facility]/ZIP Code Phon e Number [facility] LACTIC ACID, LOUISE (10/03/2011 1:08 AM SUPPORTABILITY ENGINEER) athologist Signature LACTIC ACID, 0.9 0.7 - 2.1 [facility] [place] mmol/L LABORATORY Specimen Anatomical Collection Method Collection Time Receive d Time (Source) Location / / Volume Laterality 10/03/2011 1:08 AM 1 1:17 SUPPORTABILITY ENGINEER AM SUPPORTABILITY ENGINEER Daniel Biggs MD EC CHEMISTRY ORDERABLES Performing Organization Address City/[facility]/ZIP Code Phon e Number [facility] CULTURE, BLOOD BACTERIAL (10/03/2011 1:08 AM SUPPORTABILITY ENGINEER) [facility] Method Time Signature Blood Culture SEE BELOW [facility] Comment: ?MICROBIOLOGY Order#: [id number] ? Ordered by: DANIEL BIGGS Source: Blood ?Collected: ??10/03/11 01:08 Antibiotic Therapy: ?Received : ??10/03/11 01:16 Culture, Blood Bacterial ? FINAL ? 10/08/11 02:13 ?BR 10/08/11 No growth after 5 days of incub ation. Specimen Anatomical Collection Method Collection Time Receive d Time (Source) Location / / Volume Laterality BLOOD SPECIMEN / 10/03/2011 1:08 AM 10/03 1:16 Unknown SUPPORTABILITY ENGINEER AM SUPPORTABILITY ENGINEER Daniel Biggs MD EC CHEMISTRY ORDERABLES Performing Organization Address City/State/ZIP Code Phon e Number [place] [facility] (ABNORMAL) COMPR MET PANEL (10/03/2011 1:08 AM SUPPORTABILITY ENGINEER) P athologist Signature SODIUM 138 136 - 143 [place] mEq/L LABORATORY POTASSIUM 4.3 3.6 - 5.0 [place] mEq/L LABORATORY Chloride 102 98 - 107 [place] mEq/L LABORATORY CO2 26 22 - 31 [place] mEq/L LABORATORY GLUCOSE 149 (H) 70 - 99 [place] mg/dL LAB[facility]ORY BUN 11 7 - 21 [place] mg/dL LABORATORY Creatinine 1.07 0.66 - 1.25 [place] mg/dL LAB[facility]ATORY GFR CALC >60 [place] [facility] Comment: GFR Normal: >60 mL/min/1.73 m2 Calcium 8.6 8.5 - 10.6 mg/dL [place] [facility] Protein, Total 6.3 6.3 - 8.2 gm/dL [place] [facility] Albumin 3.8 3.5 - 5.0 gm/dL [place] [facility] ALK PHOSPHATASE 70 38 - 126 IU/L [place] L ABORAT[facility] ALT(SGPT) 42 7 - 56 IU/L [place] [facility] Y AST(SGOT) 19 15 - 59 IU/L [place] [facility] RY TOTAL BILIRUBIN 1.0 0.0 - 1.2 mg/dL [facility] ANION GAP 14 [facility] Specimen Anatomical Collection Method Collection Time Receive d Time (Source) Location / / Volume Laterality 10/03/2011 1:08 AM 1 1:16 SUPPORTABILITY ENGINEER AM SUPPORTABILITY ENGINEER Daniel Biggs MD EC CHEMISTRY ORDERABLES Performing Organization Address [facility]/ZIP [facility] Phon e Number [place] [facility] (ABNORMAL) HEMOGRAM/DIFF (10/03/2011 1:08 AM SUPPORTABILITY ENGINEER) P athologist Signature WBC 18.8 (H) 3.4 - 10.7 [place] 109/L LABORATORY RBC 4.43 4.20 - 5.90 [place] 1012/L LABORATORY HGB 13.0 13.0 - 17.0 [place] g/dL LABORATORY HCT 38.2 37.5 - 51.0 [place] % LABORATORY MCV 86.2 82.0 - 99.0 [facility] fL LABORATORY MCH 29.2 27.0 - 34.0 [facility] pg LABORATORY MCHC 33.9 32.0 - 35.7 [place] g/dL LABORATORY RDW 13.3 11.0 - 15.0 [facility] % LABORATORY PLT 210 150 - 400 [place] 109/L LABORATORY Specimen Anatomical Collection Method Collection Time Receive d Time (Source) Location / / Volume Laterality 10/03/2011 1:08 AM 1 1:16 SUPPORTABILITY ENGINEER AM SUPPORTABILITY ENGINEER Daniel Biggs MD EC HEMATOLOGY ORDERABLES Performing Organization Address City/[facility]/ZIP Code Phon e Number [place] [facility] (ABNORMAL) GLUCOSE, METER (10/02/2011 9:01 PM SUPPORTABILITY ENGINEER) athologist Signature GLUCOSE, METER 137 (H) 70 - 99 [place] mg/dL LABORATORY Specimen Anatomical Collection Method Collection Time Receive d Time (Source) Location / / Volume Laterality 10/02/2011 9:01 PM 1 9:10 SUPPORTABILITY ENGINEER PM SUPPORTABILITY ENGINEER Morgan Storm MD EC CHEMISTRY ORDERABLES Performing Organization Address City/[facility]/ZIP Code Phon e Number [place] [facility] (ABNORMAL) GLUCOSE, METER (10/02/2011 4:46 PM SUPPORTABILITY ENGINEER) P athologist Signature GLUCOSE, METER 139 (H) 70 - 99 [place] mg/dL LABORATORY Specimen Anatomical Collection Method Collection Time Receive d Time (Source) Location / / Volume Laterality 10/02/2011 4:46 PM 1 4:55 SUPPORTABILITY ENGINEER PM SUPPORTABILITY ENGINEER Morgan Storm MD EC CHEMISTRY ORDERABLES Performing Organization Address City/State/ZIP Code Phon e Number [facility] US GALLBLADDER RUQ (10/02/2011 10:55 AM SUPPORTABILITY ENGINEER) Anatomical Region Laterality Modality Abdomen Ultrasound Specimen (Source) Anatomical Location Collection Method / Collectio n Time Received Time / Laterality Volume Impressions 10/02/2011 3:27 PM SUPPORTABILITY ENGINEER ??No definite fluid collection within the gallbladder fossa. ?? Common bile duct measures 6 mm. Narrative 10/02/2011 3:27 PM SUPPORTABILITY ENGINEER RIGHT UPPER QUADRANT ULTRASOUND FINDINGS: ??Significantly limited right upper quadrant due to shadowing bowel gas. ??Presumed fatty infiltration of the liver. ??There is no evidence for intrahepatic biliary ductal dilatation. ??Status post cholecystectomy one week ago. ??There is no evidence of focal fluid collection within the gallbladder fossa. ??The common bile duct measures 6 mm in double wall thickness without evid ence for filling defect. ??Pancreas is not well-visualized due to shadowing bowel gas. ??There is no free fluid collection by ultrasound. ??The right ki dney appears to be unremarkable. ?? Nonaneurysmal aorta. Procedure Note Bart Yanes MD - 10/02/2011Format ting of this note might be different from the original. RIGHT UPPER QUADRANT ULTRASOUND FINDINGS: Significantly limited right up per quadrant due to shadowing bowel gas. Presumed fatty infiltration of the liver. There is no evidence for intrahepatic biliary ductal dilatation. Status post cholecystectomy one week ago. There is n o evidence of focal fluid collection within the gallbladder fossa. The common bile duct measures 6 mm in double wall thickness without evidence for filling defect. Pancreas is not well-visualized due to shadowing bowel gas. There is no free fluid collection by ultrasound. The right kidney appears to be unremarkable. Nonaneurysmal aorta. IMPRESSION: No definite fluid collection within the gallbladder fossa. Common bile duct measures 6 mm. Morgan Storm MD EC US ORDERABLES UA TO CULTUR PRN (10/02/2011 9:50 AM SUPPORTABILITY ENGINEER) [facility] Time Signature Type CVMS [facility] Color YELLOW [facility] Appearance CLEAR [facility] Urine Specific >=1.030 [facility] [place] LABOR[facility]ORY Urine pH 5.[address] [facility] Urine Leukocyte Neg [facility] E[place] LABORATORY Urine Nitrites Neg [facility] Urine Protein Neg mg/dL [facility] Urine Glucose Neg mg/dL [facility] Urine Ketone Neg mg/dL [facility] Comment: URINALYSIS REFERENCE RANGES ? MICROSCOPIC REFERENCE ?RANGES Appearance: ?Clear ?WBC'S: ? 0-8/HPF Color: ? Yellow ? RBC'S: ? 0-3/HPF Specific [place]: ??1.003-1.035 ?Hyaline Casts: 0-3/LPF pH: ?5.0-8.0 Protein: ? Neg-Trace Glucose: ? Neg Ketone: ?Neg Blood: ? Neg Nitrite: ? Neg Leuk Esterase: ? Neg Microscopic Exam: Not Indicated [facility] Comment: Please Note: A routine urine not reflexing to a micro scopic exam automatically means the dipstick blood t est is negative. Urine WBC's Not Indicated /HPF [facility] Urine RBC's Not Indicated /HPF [facility] Urine Culture Reflex Not Indicated [facility] Specimen Anatomical Collection Method Collection Time Receive d Time (Source) Location / / Volume Laterality BOOTH CASHIER 10/02/2011 9:50 AM 10/02/20 11 9:56 MID-STREAM URINE SUPPORTABILITY ENGINEER AM SUPPORTABILITY ENGINEER SPECIMEN OBTAINED BY CLEAN CATCH PROCEDURE / Unknown Narrative [facility] - 10/02/2011 10:01 A M SUPPORTABILITY ENGINEER Urinalysis will reflex to a culture if t here are greater than 10 WBC's on the m Morgan Storm MD EC URINE ORDERABLES Performing Organization Address City/State/ZIP Code Phon e Number [facility] XR CHEST 2V (10/02/2011 9:37 AM SUPPORTABILITY ENGINEER) Anatomical Region Laterality Modality Chest Radiographic Imaging Specimen (Source) Anatomical Location Collection Method / Collectio n Time Received Time / Laterality Volume Impressions 10/02/2011 4:27 PM SUPPORTABILITY ENGINEER ??No acute cardiopulmonary finding. Narrative 10/02/2011 4:27 PM SUPPORTABILITY ENGINEER TWO VIEWS OF THE CHEST 10/02/2011 HISTORY: ??Chest pain. COMPARISON: ??09/20/2011 FINDINGS: ??Lung volumes are low, accent uating lung markings. ??No acute airspace opacity. ??No pleural effusion. ??Heart size and pulmonary vasculature are within normal limits. ?? Procedure Note Pennie Kwan MD - 10/02/2011 TWO VIEWS OF THE CHEST 10/02/2011 HISTORY: Chest pain. COMPARISON: 09/20/2011 FINDINGS: Lung volumes are low, accentua ting lung markings. No acute airspace opacity. No pleural effusion. Heart size and pulmonary vasculature are within normal limits. IMPRESSION: No acute cardiopulmonary fin ding. Morgan Storm MD EC DIAGNOSTIC IMAGING ORDERA BLES LACTIC ACID, [place] (10/02/2011 9:24 AM SUPPORTABILITY ENGINEER) P athologist Signature LACTIC ACID, 1.1 0.7 - 2.1 [place] mmol/L LABORATORY Specimen Anatomical Collection Method Collection Time Receive d Time (Source) Location / / Volume Laterality 10/02/2011 9:24 AM 1 9:28 SUPPORTABILITY ENGINEER AM SUPPORTABILITY ENGINEER Morgan Storm MD EC CHEMISTRY ORDERABLES Performing Organization Address City/State/ZIP Code Phon e Number [facility] EKG 12-LEAD (10/02/2011 9:02 AM SUPPORTABILITY ENGINEER) P athologist Signature Ventricular Rate 69 BPM [facility] Atrial Rate 69 BPM [facility] P-R Interval 156 ms [place] [facility] QRS Duration 98 ms [place] [facility] QT 410 ms [facility] QTc 439 ms [facility] P [place] 41 degrees [place] [facility] R [place] 42 degrees [place] [facility] T [place] 20 degrees [facility] Specimen (Source) Anatomical Collection Method Collection Time Re ceived Time Location / / Volume Laterality 10/02/2011 9:02 AM SUPPORTABILITY ENGINEER Narrative [facility] - 10/02/2011 3:18 PM SUPPORTABILITY ENGINEER Confirming Doc Richard Yusuf MD Normal sinus rhythm Normal ECG When compared with ECG of 22-SEP-2011 07 :28, No significant change was found Nelsy Early MD IP ECG ORDERABLES Performing Organization Address [facility]/ZIP Code Phon e Number [facility] (ABNORMAL) LIPASE (10/02/2011 9:02 AM SUPPORTABILITY ENGINEER) P athologist Signature LIPASE 1597 (H) 23 - 203 [place] IU/L LABORATORY Specimen Anatomical Collection Method Collection Time Receive d Time (Source) Location / / Volume Laterality 10/02/2011 9:02 AM 1 9:20 SUPPORTABILITY ENGINEER AM SUPPORTABILITY ENGINEER Morgan Storm MD EC CHEMISTRY ORDERABLES Performing Organization Address City/[facility]/ZIP Code Phon e Number [facility] (ABNORMAL) DIFFERENTIAL (10/02/2011 9:02 AM SUPPORTABILITY ENGINEER) Patholo gist Method Time Signature NEUTROPHIL % 86.0 (H) 40.0 - [place] 80.0 % LABORATORY LYMPHOCYTE % 8.5 (L) 10.0 - [place] 44.0 % LABORATORY MONOCYTE % 4.5 3.0 - 15.0 [place] % LABORATORY EOSINOPHIL % 0.6 0.0 - 8.0 [place] % LAB[facility] BASOPHIL % 0.4 0.0 - 3.0 [place] % [facility] NEUTROPHIL ABS 10.8 (H) 1.7 - 8.5 [place] 109/L LABORATORY LYMPHOCYTE ABS 1.1 0.9 - 3.6 [place] 109/L LABORATORY MONOCYTE ABS 0.6 0.3 - 1.0 [place] 109/L LABORATORY EOSINOPHIL ABS 0.1 0.0 - 0.6 [place] 109/L LABORATORY BASOPHIL ABS 0.1 0.0 - 0.3 [place] 109/L LABORATORY Specimen Anatomical Collection Method Collection Time Receive d Time (Source) Location / / Volume Laterality 10/02/2011 9:02 AM 1 9:07 SUPPORTABILITY ENGINEER AM SUPPORTABILITY ENGINEER Nelsy Early MD EC LABORATORY Performing Organization Address City/[facility]/ZIP Code Phon e Number [facility] TROPONIN I (10/02/2011 9:02 AM SUPPORTABILITY ENGINEER) P athologist Signature Troponin I 0.006 0.000 - [place] 0.100 ng/mL LABORATORY Specimen Anatomical Collection Method Collection Time Receive d Time (Source) Location / / Volume Laterality 10/02/2011 9:02 AM 1 9:07 SUPPORTABILITY ENGINEER AM SUPPORTABILITY ENGINEER Nelsy Early MD EC CHEMISTRY ORDERABLES Performing Organization Address [facility] Phon e Number [facility] (ABNORMAL[facility] COMPR MET PANEL (10/02/2011 9:02 AM SUPPORTABILITY ENGINEER) athologist Signature SODIUM 143 136 - 143 [place] mEq/L LABOR[facility] POTASSIUM 4.4 3.6 - 5.0 [place] mEq/L LAB[facility] Chloride 104 98 - 107 [place] mEq/L LAB[facility] CO2 27 22 - 31 [place] mEq/L LAB[facility]ORY GLUCOSE 139 (H) 70 - 99 [place] mg/dL LABORATORY BUN 16 7 - 21 [place] mg/dL LABORATORY Creatinine 1.13 0.66 - 1.25 [place] mg/dL LABORATORY GFR CALC >60 [facility] Comment: GFR Normal: >60 mL/min/1.73 m2 Calcium 9.2 8.5 - 10.6 mg/dL [facility] Protein, Total 7.5 6.3 - 8.2 gm/dL [facility] Albumin 4.3 3.5 - 5.0 gm/dL [place] [facility] ALK PHOSPHATASE 90 38 - 126 IU/L [facility] L ABORATORY ALT(SGPT) 53 7 - 56 IU/L [place] [facility] Y AST(SGOT) 37 15 - 59 IU/L [place] [facility] RY TOTAL BILIRUBIN 0.7 0.0 - 1.2 mg/dL [facility] ANION GAP 16 [facility] Specimen Anatomical Collection Method Collection Time Receive d Time (Source) Location / / Volume Laterality 10/02/2011 9:02 AM 1 9:07 SUPPORTABILITY ENGINEER AM SUPPORTABILITY ENGINEER Nelsy aErly MD EC CHEMISTRY ORDERABLES Performing Organization Address [facility] Phon e Number [facility] (ABNORMAL) HEMOGRAM/DIFF (10/02/2011 9:02 AM SUPPORTABILITY ENGINEER) P athologist Signature WBC 12.6 (H) 3.4 - 10.7 [facility] 109/L LABORATORY RBC 4.86 4.20 - 5.90 [facility] 1012/L LABORATORY HGB 14.5 13.0 - 17.0 [facility] g/dL LABORATORY HCT 42.0 37.5 - 51.0 [facility] % LABORATORY MCV 86.4 82.0 - 99.0 [facility] fL LABORATORY MCH 29.9 27.0 - 34.0 [facility] pg LABORATORY MCHC 34.6 32.0 - 35.7 [facility] g/dL LABORATORY RDW 13.5 11.0 - 15.0 [facility] % LABORATORY PLT 231 150 - 400 [facility] 109/L LABORATORY Specimen Anatomical Collection Method Collection Time Receive d Time (Source) Location / / Volume Laterality 10/02/2011 9:02 AM 1 9:07 SUPPORTABILITY ENGINEER AM SUPPORTABILITY ENGINEER Nelsy Early MD EC HEMATOLOGY ORDERABLES Performing Organization Address City/State/ZIP Code Phon e Number [facility] documented in this encounter Visit Diagnoses Diagnosis Acute pancreatitis - Primary Acute pancreatitis Diabetes mellitus (HCC) Type II or unspecified type diabetes [place] litus without mention of complication, not stated as uncontrolled Hypertension Unspecified essential hypertension Chest pain Chest pain, unspecified Diabetes mellitus type II Type II or unspecified type diabetes [place] litus without mention of complication, not stated as uncontrolled Essential hypertension, benign Essential hypertension, benign Diabetes mellitus type II Type II or unspecified type diabetes [place] litus without mention of complication, not stated as uncontrolled documented in this encounter Administered Medications Inactive Administered Medications Medication Order MAR Action Action Date Dose Rate Site acetaminophen (TYLENOL) tablet Given 10/06/2011 7:58 PM SUPPORTABILITY ENGINEER 650 mg 325-650 mg 325-650 mg, Oral, EVERY 4 HOURS NEEDED, Starting on Fri10/02/11 at 1737, Until Fri10/07/11 at 1456, Pain Given 10/03/2011 3:34 PM SUPPORTABILITY ENGINEER 650 mg Given 10/03/2011 7:58 AM SUPPORTABILITY ENGINEER 650 mg Given 10/03/2011 1:39 AM SUPPORTABILITY ENGINEER 650 mg Given 10/02/2011 5:45 PM SUPPORTABILITY ENGINEER 650 mg aspirin chewable tablet 81 mg Given 10/07/2011 8:04 AM SUPPORTABILITY ENGINEER 81 mg 81 mg, Oral, ONCE DAILY, First dose on Crista 10/03/11 at 0800, Until Discontinued Given 10/06/2011 7:55 AM SUPPORTABILITY ENGINEER 81 mg Given 10/05/2011 7:42 AM SUPPORTABILITY ENGINEER 81 mg Given 10/04/2011 8:24 AM SUPPORTABILITY ENGINEER 81 mg cetirizine (ZYRTEC) tablet 10 mg Given 10/07/2011 8:04 AM SUPPORTABILITY ENGINEER 10 mg 10 mg, Oral, ONCE DAILY, First dose on Fri10/06/11 at 1330, Until Discontinued Given 10/06/2011 2:04 PM SUPPORTABILITY ENGINEER 10 mg docusate sodium (COLACE) capsule 100 mg Given 10/04/2011 8:25 AM SUPPORTABILITY ENGINEER 100 mg 100 mg, Oral, 2 TIMES DAILY NEEDED, Starting on Fri10/02/11 at 1305, Until Fri10/07/11 at 1456, Constipation enoxaparin (LOVENOX) injection Given 10/05/2011 7:42 AM SUPPORTABILITY ENGINEER 40 m g Abdominal Tissue 40 mg 40 mg, Subcutaneous, ONCE DAILY, First dose on Fri10/02/11 at 1300, Until Discontinued Given 10/04/2011 8:24 AM SUPPORTABILITY ENGINEER 40 mg Abdom inal Tissue Given 10/03/2011 8:00 AM SUPPORTABILITY ENGINEER 40 mg Given 10/02/2011 2:23 PM SUPPORTABILITY ENGINEER 40 mg HYDROmorphone (DILAUDID) injection 0.5 m g Given 10/02/2011 9:30 AM SUPPORTABILITY ENGINEER 0.5 mg 0.5 mg, IV Push, ONCE, 1 dose, On Fri10/02/11 at 0930 HYDROmorphone (DILAUDID) injection 0.5 m g Given 10/02/2011 10:00 AM SUPPORTABILITY ENGINEER 0.5 mg 0.5 mg, IV Push, ONCE, 1 dose, On Fri10/02/11 at 1000 HYDROmorphone (DILAUDID) injection 0.5 m g Given 10/02/2011 11:28 AM SUPPORTABILITY ENGINEER 0.5 mg 0.5 mg, IV Push, ONCE, 1 dose, On Fri10/02/11 at 1130 HYDROmorphone (DILAUDID) injection 0.5-1 mg Given 10/02/2011 1:08 PM SUPPORTABILITY ENGINEER 1 mg 0.5-1 mg, IV Push, EVERY 3 HOURS NEEDED, Starting on Fri10/02/11 at 1301, Until Fri10/02/11 at 1503, Pain HYDROmorphone (DILAUDID) injection 0.5-1 mg Given 10/05/2011 9:32 PM SUPPORTABILITY ENGINEER 1 mg 0.5-1 mg, IV Push, EVERY 2 HOURS NEEDED, Starting on Fri10/02/11 at 1530, Until Fri10/07/11 at 1456, Pain Given 10/05/2011 6:54 PM SUPPORTABILITY ENGINEER 1 mg Given 10/05/2011 11:09 AM SUPPORTABILITY ENGINEER 0.5 mg Given 10/05/2011 3:05 AM SUPPORTABILITY ENGINEER 1 mg Given 10/04/2011 10:09 PM SUPPORTABILITY ENGINEER 1 mg Given 10/04/2011 5:55 PM SUPPORTABILITY ENGINEER 1 mg Given 10/04/2011 3:13 PM SUPPORTABILITY ENGINEER 1 mg Given 10/04/2011 11:34 AM SUPPORTABILITY ENGINEER 1 mg Given 10/04/2011 8:24 AM SUPPORTABILITY ENGINEER 1 mg Given 10/04/2011 5:35 AM SUPPORTABILITY ENGINEER 1 mg Given 10/04/2011 3:15 AM SUPPORTABILITY ENGINEER 1 mg Given 10/03/2011 11:45 PM SUPPORTABILITY ENGINEER 1 mg Given 10/03/2011 8:15 PM SUPPORTABILITY ENGINEER 1 mg Given 10/03/2011 6:07 PM SUPPORTABILITY ENGINEER 1 mg Given 10/03/2011 3:24 PM SUPPORTABILITY ENGINEER 1 mg Given 10/03/2011 1:28 PM SUPPORTABILITY ENGINEER 1 mg Given 10/03/2011 11:25 AM SUPPORTABILITY ENGINEER 1 mg Given 10/03/2011 9:31 AM SUPPORTABILITY ENGINEER 1 mg Given 10/03/2011 7:06 AM SUPPORTABILITY ENGINEER 1 mg Given 10/03/2011 4:29 AM SUPPORTABILITY ENGINEER 1 mg Given 10/03/2011 2:20 AM SUPPORTABILITY ENGINEER 1 mg Given 10/03/2011 12:05 AM SUPPORTABILITY ENGINEER 1 mg Given 10/02/2011 9:42 PM SUPPORTABILITY ENGINEER 1 mg Given 10/02/2011 7:48 PM SUPPORTABILITY ENGINEER 1 mg Given 10/02/2011 5:32 PM SUPPORTABILITY ENGINEER 1 mg Given 10/02/2011 3:14 PM SUPPORTABILITY ENGINEER 1 mg insulin aspart (NOVOLOG) injection Given 10/07/2011 6:21 AM SUPPORTABILITY ENGINEER 1 Units Left Arm Subcutaneous, WITH MEALS AND BEDTIME, First dose on Fri10/02/11 at 1800, Until Discontinued Given 10/06/2011 5:49 PM SUPPORTABILITY ENGINEER 1 Units Given 10/04/2011 7:11 AM SUPPORTABILITY ENGINEER 1 Units Left Arm levofloxacin in dextrose 5% New Bag 10/03/2011 1:39 AM SUPPORTABILITY ENGINEER 500 mg 100 mL/hr (LEVAQUIN) infusion 500 mg 500 mg, Intravenous, at 100 mL/hr, ONCE, 1 dose, On Crista 10/03/11 at 0100 levofloxacin in dextrose 5% New Bag 10/04/2011 7:55 AM SUPPORTABILITY ENGINEER 500 mg 100 mL/hr (LEVAQUIN) infusion 500 mg 500 mg, Intravenous, at 100 mL/hr, ONCE DAILY, First dose on Fri10/04/11 at 0800, Until Discontinued LORazepam (ATIVAN) injection 1 mg Given 10/03/2011 8:45 AM SUPPORTABILITY ENGINEER 1 mg 1 mg, IV Push, ONCE, 1 dose, On Crista 10/03/11 at 0800 metFORMIN (GLUCOPHAGE) tablet 1,000 mg Given 10/07/2011 8:04 AM SUPPORTABILITY ENGINEER 1,000 mg 1,000 mg, Oral, 2 TIMES DAILY, First dose on Fri10/02/11 at 1300, Until Discontinued Given 10/06/2011 7:58 PM SUPPORTABILITY ENGINEER 1,000 mg Given 10/06/2011 7:55 AM SUPPORTABILITY ENGINEER 1,000 mg Given 10/05/2011 8:01 PM SUPPORTABILITY ENGINEER 1,000 mg Given 10/04/2011 7:37 PM SUPPORTABILITY ENGINEER 1,000 mg Given 10/03/2011 8:18 PM SUPPORTABILITY ENGINEER 1,000 mg Given 10/02/2011 8:14 PM SUPPORTABILITY ENGINEER 1,000 mg Given 10/02/2011 2:23 PM SUPPORTABILITY ENGINEER 1,000 mg metoprolol tartrate (LOPRESSOR) tablet 2 5 mg Given 10/05/2011 7:43 AM SUPPORTABILITY ENGINEER 25 mg 25 mg, Oral, 2 TIMES DAILY, First dose on Fri10/02/11 at 1300, Until Discontinued Given 10/04/2011 7:37 PM SUPPORTABILITY ENGINEER 25 mg Given 10/04/2011 8:23 AM SUPPORTABILITY ENGINEER 25 mg Given 10/03/2011 8:18 PM SUPPORTABILITY ENGINEER 25 mg Given 10/03/2011 7:59 AM SUPPORTABILITY ENGINEER 25 mg Given 10/02/2011 8:15 PM SUPPORTABILITY ENGINEER 25 mg Given 10/02/2011 2:23 PM SUPPORTABILITY ENGINEER 25 mg metoprolol tartrate (LOPRESSOR) tablet 2 5 mg Given 10/05/2011 1:12 PM SUPPORTABILITY ENGINEER 25 mg 25 mg, Oral, ONCE, 1 dose, On 10/05/11 at 1330 metoprolol tartrate (LOPRESSOR) tablet 5 0 mg Given 10/07/2011 8:04 AM SUPPORTABILITY ENGINEER 50 mg 50 mg, Oral, 2 TIMES DAILY, First dose (after last modification) on Fri10/05/11 at 2000, Until Discontinued Given 10/06/2011 7:59 PM SUPPORTABILITY ENGINEER 50 mg Given 10/06/2011 7:55 AM SUPPORTABILITY ENGINEER 50 mg Given 10/05/2011 8:01 PM SUPPORTABILITY ENGINEER 50 mg metroNIDAZOLE (FLAGYL) infusion 500 New 10/04/2011 6:45 AM SUPPORTABILITY ENGINEER 500 mg 100 mL/hr mg 500 mg, Intravenous, at 100 mL/hr, EVERY 6 HOURS, First dose on Crista 10/03/11 at 0100, Until Discontinued New 10/03/2011 11:47 PM SUPPORTABILITY ENGINEER 500 mg 100 mL/hr New 10/03/2011 5:28 PM SUPPORTABILITY ENGINEER 500 mg 100 mL/hr New 10/03/2011 12:10 PM SUPPORTABILITY ENGINEER 500 mg 100 mL/hr New 10/03/2011 7:05 AM SUPPORTABILITY ENGINEER 500 mg 100 mL/hr 10/03/2011 2:41 AM SUPPORTABILITY ENGINEER 500 mg 100 mL/hr omeprazole (PRILOSEC) capsule 20 mg Given 10/02/2011 2:23 PM SUPPORTABILITY ENGINEER 20 mg 20 mg, Oral, ONCE DAILY, First dose on Fri10/02/11 at 1300, Until Discontinued ondansetron (ZOFRAN) injection 4 mg Given 10/02/2011 9:32 AM SUPPORTABILITY ENGINEER 4 mg 4 mg, IV Push, ONCE, 1 dose, On Fri10/02/11 at 0930 sodium chloride 0.9 % (NS) 10/05/2011 1:39 AM SUPPORTABILITY ENGINEER 1,000 mL 150 mL/hr infusion 1,000 mL 1,000 mL, Intravenous, at 150 mL/hr, CONTINUOUS, Starting on Fri10/04/11 at 1930, Until Fri10/05/11 at 0209 10/04/2011 7:30 PM SUPPORTABILITY ENGINEER 1,000 mL 150 mL/hr sodium chloride 0.9 % (NS) 10/02/2011 11:28 AM SUPPORTABILITY ENGINEER 500 mL 1000 mL/hr infusion 500 mL 500 mL, Intravenous, at 1,000 mL/hr, CONTINUOUS, Starting on Fri10/02/11 at 1130, Until Fri10/02/11 at 1234 sodium chloride 0.9 % (NS) infusion 10/04/2011 11:10 AM SUPPORTABILITY ENGINEER 150 mL/hr Intravenous, at 150 mL/hr, CONTINUOUS, Starting on Fri10/02/11 at 1300, Until 10/04/11 at 1244 New Bag 10/04/2011 2:41 AM SUPPORTABILITY ENGINEER 150 mL/hr New 10/03/2011 5:27 PM SUPPORTABILITY ENGINEER 150 mL/hr New 10/03/2011 10:51 AM SUPPORTABILITY ENGINEER 150 mL/hr New 10/03/2011 2:00 AM SUPPORTABILITY ENGINEER 150 mL/hr New 10/03/2011 1:39 AM SUPPORTABILITY ENGINEER 150 mL/hr New 10/02/2011 12:45 PM SUPPORTABILITY ENGINEER 150 mL/hr sodium chloride 0.9 % (NS) infusion New Bag 10/06/2011 5:19 AM SUPPORTABILITY ENGINEER 150 mL/hr Intravenous, at 150 mL/hr, CONTINUOUS, Starting on 10/05/11 at 0200, Until 10/06/11 at 0916 New 10/05/2011 10:56 PM SUPPORTABILITY ENGINEER 150 mL/hr New 10/05/2011 4:20 PM SUPPORTABILITY ENGINEER 150 mL/hr New 10/05/2011 7:43 AM SUPPORTABILITY ENGINEER 150 mL/hr Rate/Dose Verify 10/05/2011 2:44 AM SUPPORTABILITY ENGINEER 150 mL/hr documented in this encounter Discontinued Medications Medication Sig Discontinue Reason Start Date End Date docusate sodium 1-2 tablet PO Changed to an alternate 09/17/2011 10/02/2011 (COLACE) 50 MG capsule daily therapy Sennosides-Docusate Take 1 Tab by 011 Sodium (SENNA PLUS OR) mouth two times a day. metoprolol tartrate Take 1 Tab by 09/23/2011 011 (LOPRESSOR) 25 MG mouth two times a tablet day. documented as of this encounter Historical Medications This list may reflect changes made after this encounter. Medication Sig Dispensed Refills Start Date End Date Sennosides-Docusate Take 1 Tab by mouth 0 10/07/2011 Sodium (SENNA PLUS OR) two times a day. added in this encounter Active and Recently Administered Medications Times are shown in SUPPORTABILITY ENGINEER. Scheduled Medication Order 10/05/2011 10/06/2011 10/07/2011 aspirin chewable tablet 81 mg (CANCELED) 0797 (Given - Provider: Isabel Shelley) 0753 (Given - Provider: Landy Silva RN) 0804 (G iven - Provider: Tomasa Kwan RN) 81 mg, Oral, ONCE DAILY, First dose on Crista 10/03/11 at 0800, Until Discontinued cetirizine (ZYRTEC) tablet 10 mg (CANCELED) 1404 (Given - Provider: Landy Silva RN) 0804 (Given - Provider: Tomasa phelps RN) 10 mg, Oral, ONCE DAILY, First dose on Fri10/06/11 at 1330, Until Discontinued enoxaparin (LOVENOX) injection 40 mg (CANCELED) 0742 ( Given - Provider: Isabel Shelley) 0801 (Not Given - Provider: Landy Hillman RN - Reason: Patient/Family refused) 0802 (Not Given - Provider: Tomasa perry RN - Reason: Patient/Family refused) 40 mg, Subcutaneous, ONCE DAILY, First d ose on Fri10/02/11 at 1300, Until Discontinued insulin aspart (NOVOLOG) injection (CANCELED) 0636 (No t Given - Provider: Mary Washington RN - Reason: Order Parameters not met - Comment: BS 125)0800 (Canceled Entry - Provider: Mary Washington RN)1127 (Not Given - Provider: Isabel Shelley - Reason: Contraindicated - Comment: accucheck is 122) 0718 (Not Given - Provider: Odette Redding LPN - Reason: Order Parameters not met)1146 (Not Given - Provider: Celia Mays LPN - Reason: Order Parameters not met)1749 (Given - Provider: Shaka Brown RN - Comment: 158) 0621 (Given - Provider: Odette Redding LPN)0700 (Not Given - Provider: Odette Redding LPN - Reason: Other - Comment: see previous entry.) Subcutaneous, WITH MEALS AND BEDTIME, Fi rst dose on Fri10/02/11 at 1800, Until Discontinued 180 (Not Given - Provider: Allyson umana RN - Reason: Order Parameters not met)2102 (Not Given - Provider: Allyson Haile RN - Reason: Order Parameters not met - Comment: BS:117) 2138 (Not Given - Provider: Shaka Brown RN - Reason: Order Parameters not met) levofloxacin in dextrose 5% (LEVAQUIN) infusion 500 mg 500 mg, Intravenous, at 100 mL/hr, ONCE, 1 dose, Crista 10/03/11 at 0100 metFORMIN (GLUCOPHAGE) tablet 1,000 mg (CANCELED) 742 (Not Given - Provider: Isabel Shelley - Reason: Contraindicated - Comment: glucose 125, pt is npo)2000 (Given - Provider: Allyson Haile RN) 754 (Given - Provider: Landy Silva RN)1957 (Given - Provider: Shaka Brown RN) 0804 (Given - Provider: Tomasa Kwan RN) 1,000 mg, Oral, 2 TIMES DAILY, First dos e on Fri10/02/11 at 1300, Until Discontinued metoprolol tartrate (LOPRESSOR) tablet 25 mg (CANCELED ) 742 (Given - Provider: Isabel Shelley) 25 mg, Oral, 2 TIMES DAILY, First dose o n Fri10/02/11 at 1300, Until Discontinued metoprolol tartrate (LOPRESSOR) tablet 25 mg (COMPLETE D) 1312 (Given - Provider: Isabel Shelley) 25 mg, Oral, ONCE, 1 dose, 10/05/11 at 1330 metoprolol tartrate (LOPRESSOR) tablet 50 mg 2000 (Giv en - Provider: Allyson Haile RN) 754 (Given - Provider: Landy machado RN)1958 (Given - Provider: Shaka Brown RN) 0804 (Given - Provider: Tomasa phelps RN) 50 mg, Oral, 2 TIMES DAILY, First dose o n 10/05/11 at 2000, Until Discontinued Continuous Medication Order 10/05/2011 10/06/2011 10/07/2011 sodium chloride 0.9 % (NS) infusion 1,000 mL 0139 (New Bag - Provider: Kimmie Mullen, RN) 1,000 mL, Intravenous, at 150 mL/hr, CON TINUOUS, Starting Fri10/04/11 at 1930, Until 10/05/11 at 0209 sodium chloride 0.9 % (NS) infusion Intravenous, at 150 mL/hr, CONTINUOUS, S tarting 10/02/11 at 1300, Until Fri10/04/11 at 1244 sodium chloride 0.9 % (NS) infusion (CANCELED) 0244 (R ate/Dose Verify - Provider: Mary Washington RN)0743 (New Bag - Provider: Isabel Shelley)1620 (New Bag - Provider: Allyson Haile RN)2256 (New Bag - Provider: Allyson Haile RN) 0519 (New Bag - Provider: Odette Redding LPN)0918 (Stopped - Provider: Landy Silva, AUSTYN) Intravenous, at 150 mL/hr, CONTINUOUS, S tarting 10/05/11 at 0200, Until Discontinued PRN Medication Order 10/05/2011 10/06/2011 10/07/2011 acetaminophen (TYLENOL) tablet 325-650 mg (CANCELED) 1958 (Given - Provider: Shaka Brown, AUSTYN) 325-650 mg, Oral, EVERY 4 HOURS NEEDE D, Starting Fri10/02/11 at 1737, Until Discontinued, Pain HYDROmorphone (DILAUDID) injection 0.5-1 mg (CANCELED) 0305 (Given - Provider: Mary Washington RN)1109 (Given - Provider: Celia Mays LPN)1854 (Given - Provider: Allyosn Haile RN)2132 (Given - Provider: Allyson Haile RN) 0.5-1 mg, IV Push, EVERY 2 HOURS NEED ED, Starting Fri10/02/11 at 1530, Until Discontinued, Pain documented in this encounter Orders Medications Ordered That Might Not Have Count Last Ord ered Date First Ordered Date Been Administered betamethasone dipropionate 0.05 % cream 1 10/05/20 11 levofloxacin in dextrose 5% (LEVAQUIN) 1 1 infusion 500 mg promethazine (PHENERGAN) injection 12.5 mg 1 10/03 aspirin chewable tablet 324 mg 1 10/02/2011 docusate sodium (COLACE) capsule 50 mg 1 1 hydrALAZINE (APRESOLINE) injection 5 mg 1 10/02/20 11 HYDROcodone-acetaminophen (NORCO) 10-325 1 011 MG per tablet 1 Tab HYDROcodone-acetaminophen (VICODIN, 1 10/02/2011 LORTAB) 5-500 MG per tablet 1-2 Tab HYDROmorphone (DILAUDID) injection 0.5-1 1 011 mg LORazepam (ATIVAN) tablet 0.5-1 mg 1 10/02/2011 nitroglycerin (NITROSTAT) tablet 0.4 mg 1 10/02/20 11 ondansetron (ZOFRAN) injection 4 mg 1 10/02/2011 Nursing Count Last Ordered Date First Ordered Date SALINE LOCK IV 1 10/02/2011 Consult Count Last Ordered Date First Ordered Date PHARMACY TO DOSE MEDICATION [facility] 1 10/05/2011 documented in this encounter Care Teams Cable Television Program Director Relationship Specialty Start Date End Date Richardson Graham MD PCP - General Family Medicine 09/17/11 10/10/112023 [address] [address] documented as of this encounter
--- OUTSIDE RECORDS SUMMARY | 2022-09-20 12:29 | XMS_ITS | Encounter Summary ---
:1950 Author Organization [facility] [employer] Address [address] [address] Phone Care Team Providers Name Role Phone Richardson Graham MD Primary Care Provider Reason for Visit Reason Comments Sinus Pain onset Tuesday 03/13, stated has had chills and a fever last evening of 101 F. Coughing up large amounts of thick, carbone phlegm Encounter Details Date Type Department Care Team Description 03/15/2012 Office Visit [facility], [facility] mariella (Primary URGENT CARE Dx) [address] [place] [address] Social History Tobacco Use Types Packs/Day Years Used Date Smoking Tobacco: Never Smokeless Tobacco: Never Alcohol Use Standard Drinks/Week Comments No 0 (1 standard drink = 0.6 oz pure alcoho l) occasional Sex Assigned at Date Recorded Not on file documented as of this encounter Last Filed Vital Signs Vital Sign Reading Time Taken Comments Blood Pressure 123/71 03/15/2012 11:26 AM CDT Pulse 73 03/15/2012 11:26 AM CDT Temperature 36.8 ??C (98.2 ??F) 03/15/2012 11:26 AM CDT Respiratory Rate - - Oxygen Saturation - - Inhaled Oxygen Concentration - - Weight 119.7 kg (263 lb 12.8 oz) 03/15/2012 11:26 AM CDT Height 177.8 cm (5' 10) 03/15/2012 11:26 AM CDT Body Mass Index 37.85 03/15/2012 11:26 AM CDT documented in this encounter Patient Instructions Patient InstructionsLee Brown - 03/15/2012 11:46 AM CDT Hold Z-frandy. Fill if fever returns or not improved. documented in this encounter Ordered Prescriptions Prescription Sig Dispensed Refills Start Date End Date azithromycin (ZITHROMAX) Take 2 tablets (500 6 Tab 0 03/20/2012 250 MG tablet mg) on day 1 and take 1 tablet (250 mg) on days 2-5. documented in this encounter Progress Notes Lee Brown - 03/17/2012 7:50 AM CDT [facility] Patient Name: ALINE PABON Date of Service: 03/15/2012 : 1950 Age: 62Y Sex: M DC Site MRN: Patient Loc/Room #: BRBAXUC/ Provider: Lee Brown PA-C, Urgent Care OFFICE NOTE SITE: [facility] SUBJECTIVE: This is a 62-year-old male who comes in with a chief complaint of upper respiratory infection. The patient states he has had sinus congestion and cough for the last 2 or 3 days here, but last night he was concerned that he had a fever up to 102. The patient states he has had no facial pain, no dental pain. He has had no chest pain or shortness of breath. No history of lung disease or reactive airway disease. No nausea, vomiting, diarrhea, or rash. The patient's past medical history and medications are in [facility] and reviewed. Patient of Dr Graham. ALLERGIES: THE PATIENT IS ALLERGIC TO PENICILLIN. PHYSICAL EXAM: Vital signs stable in [facility] and reviewed. He is afebrile at this point. TMs - bilaterally pearly carbone. Canals - clear. Oral mucosa - pink and moist. Posterior pharynx - benign. Neck - supple. Lungs - clear. Heart - regular. Skin - without rash. ASSESSMENT: Bronchitis. PLAN: A concern of the patient's is the patient's high fever that he had last night; he has been afebrile this morning and his lungs sound reasonably well. We will give him a prescription for a Z-Frandy and have him hold onto to this. If he develops another fever or if he is not improving in the next 3 days or so we will have him fill that. The patient is comfortable with this plan. Recheck as needed. ELECTRONICALLY SIGNED Lee Brown PA-C [facility] cc: /DPB Job ID: [id number] /[id number] Document ID: [id number] Lee Brown - 03/15/2012 11:46 AM CDT This note has been dictated. documented in this encounter Plan of Treatment Not on filedocumented as of this encounter Visit Diagnoses Diagnosis Bronchitis - Primary Bronchitis, not specified as acute or ch ronic documented in this encounter Discontinued Medications Medication Sig Discontinue Reason Start Date End Date HYDROcodone-acetamin Take 1 Tab by mouth Course of treatment 201103/15/2012 ophen (VICODIN, every four hours as completed LORTAB) 5-500 MG per needed for Pain. tablet Acetaminophen should be limited to 4000 mg per day. documented as of this encounter Care Teams Echocardiography Tech Relationship Specialty Start Date End Date Richardson Graham MD PCP - General Family Medicine 03/04/12 04/05/12[address] [address] documented as of this encounter
--- OUTSIDE RECORDS SUMMARY | 2022-09-20 12:29 | XMS_ITS | Encounter Summary ---
:1950 Author Organization [facility] Address [address] [address] Phone Care Team Providers Name Role Phone John Arroyo MD Primary Care Provider Reason for Visit Reason Comments Abdominal Pain epigastric pain since ay, hx of pancreatitis Encounter Details Date Type Department Care Team Description 11/18/2011 Office Visit [facility] John Arroyo, Acute valdes creatitis (Primary Dx); [facility] Diabetes mellitus type II 2023 [facility] [address] [place] [address] LUCERO ELIAS [phone] [id number] Social History Tobacco Use Types Packs/Day Years Used Date Smoking Tobacco: Never Smokeless Tobacco: Never Alcohol Use Standard Drinks/Week Comments No 0 (1 standard drink = 0.6 oz pure alcoho l) occasional Sex Assigned at Date Recorded Not on file documented as of this encounter Last Filed Vital Signs Vital Sign Reading Time Taken Comments Blood Pressure 112/64 11/18/2011 10:48 AM LONG CHAIN QUILLER TENDER Pulse 72 11/18/2011 10:48 AM LONG CHAIN QUILLER TENDER Temperature 36.3 ??C (97.4 ??F) 11/18/2011 10:48 AM LONG CHAIN QUILLER TENDER Respiratory Rate 18 11/18/2011 10:48 AM LONG CHAIN QUILLER TENDER Oxygen Saturation - - Inhaled Oxygen Concentration - - Weight 113.4 kg (250 lb) 11/18/2011 10:48 AM LONG CHAIN QUILLER TENDER Height 177.8 cm (5' 10) 11/18/2011 10:48 AM LONG CHAIN QUILLER TENDER Body Mass Index 35.87 11/18/2011 10:48 AM LONG CHAIN QUILLER TENDER documented in this encounter Ordered Prescriptions Prescription Sig Dispensed Refills Start Date End Date ranitidine (ZANTAC) 150 MG Take 1 Tab by mouth 62 Tab 11 11/18/2011 09/15/2012 tabletIndications: Acute two times a day. pancreatitis documented in this encounter Progress Notes John Aroryo MD - 11/20/2011 6:05 PM CST [facility] Patient Name: ALINE PABON Date of Service: 11/18/2011 : 1950 Age: 61Y Sex: M DC Site MRN: [facility] Provider: John Arroyo MD, Family Practice OFFICE NOTE SITE: [facility] PROBLEM: Abdominal pain. SUBJECTIVE: Arsh had recently been hospitalized within the last 6 weeks with a pancreatitis initially thought due to his gallbladder. His gallbladder was removed and he had a recurrence of this. Was uncertain of the cause of the recurrent pancreatitis. He subsequently has just completed an endoscopic u ltrasound of the biliary ducts. Apparently there was a little area of irregularity that was biopsiedbut the physician told me everything looked good and did not think it would be a problem. He had been doing very well until Friday he vomited x1, felt fine afterwards, but Friday night and Friday ate some oatmeal, seemed fine. He had noticed just a little heartburn about a week ago but he had eaten late that evening. Friday morning he had some oatmeal bran muffins and V8 juice and gradually during the day seemed to get increasing pain and discomfort in the epigastrium. There was no nausea or vomiting, diarrhea or constipation, dysuria or frequency. Last night about 8:00 he had increasing pain and some chills, and some sweats at about 11. He took some pain meds and again about 2 a.m. woke up with pain and some sweats and took a pain medication. He seemed to be able to sleep all night and this morning seemed fine but was concerned as yesterday it started this way and gradually got worse. Then about 10:00 or so he started having some discomfort in the epigastrium. EXAM: Patient is alert and comfortable. Lungs - clear. Heart - is 80 and regular. Abdomen - is soft,good bowel sounds. He is tender at the epigastrium. There is no guarding or rebound and no masses. ASSESSMENT: Epigastric distress with recent history of recurrent pancreatitis. We remain concerned there is a primary diagnosis of pancreatitis. I did explain to him gastritis could give him the same symptoms. He was concerned. He had read that Prilosec may cause pancreatitis. As a result he is quite hesitant to take this medication. I suggested if he has ongoing symptoms despite treatment he may want to consider taking Zantac 150 mg b.i.d. or he may try a little antacids. At this point he is going to go very light on when he eats, mainly a liquid diet, staying hydrated, use the pain medication. Weare going to check lab including an amylase, lipase, lipid, CBC, and chem. 21. Those tests are pending yet. We have an agreement that if the pain gets worse then he will come to the emergency room. If he is able to get by with pain medications and liquid diet, we can observe over the next 24 hours. Ifhe seems a lot better we will just observe. If it seems like he is better but then starts having pain again, he will recheck the amylase and lipase. I will contact him yet today with those test results. ELECTRONICALLY SIGNED John Arroyo MD [facility] cc: /[facility] Job ID: [id number] /[facility] Document ID: [id number] CHAIN QUILLER TENDER John Arroyo MD - 11/18/2011 5:22 PM LONG CHAIN QUILLER TENDER Addended by: JOHN ARROYO on: 11/18/2011 05:22 PM Modules accepted: Orders CHAIN QUILLER TENDER Mirela Stout LPN - 11/18/2011 10:51 AM CST Fall Risk No [place]oley Screening Questions 1. During the past month, have you often been bothered by feeling down, depressed, or hopeless? Not at all 2. During the past month, have you often been bothered by little interest or pleasure in doing things? Not at all CHAIN QUILLER TENDER documented in this encounter Plan of Treatment Not on filedocumented as of this encounter Procedures Procedure Name Priority Date/Time Associated Diagnosis Comme nts DIFFERENTIAL Routine 11/18/2011 11:53 Acute pancreatitis Resul ts for this AM LONG CHAIN QUILLER TENDER procedure are i n the results section. COMPREHENSIVE Routine 11/18/2011 11:53 Acute pancreatitis Resu lts for this METABOLIC PANEL AM LONG CHAIN QUILLER TENDER procedure ar e in the results section. HEMOGRAM/DIFF Routine 11/18/2011 11:53 Acute pancreatitis Resu lts for this AM LONG CHAIN QUILLER TENDER procedure are i n the results section. LIPASE Routine 11/18/2011 11:53 Acute pancreatitis Resul ts for this AM LONG CHAIN QUILLER TENDER procedure are i n the results section. HEMOGLOBIN A1C Routine 11/18/2011 11:53 Diabetes mellitus Resu lts for this AM LONG CHAIN QUILLER TENDER type II procedure are i n the results section. LIPID PROFILE Routine 11/18/2011 11:53 Diabetes mellitus Resul ts for this AM LONG CHAIN QUILLER TENDER type II procedure are i n the results section. AMYLASE Routine 11/18/2011 11:53 Acute pancreatitis Resul ts for this AM LONG CHAIN QUILLER TENDER procedure are i n the results section. documented in this encounter Results (ABNORMAL) LIPASE (11/19/2011 3:30 PM LONG CHAIN QUILLER TENDER) athologist Signature LIPASE 105 (H) 13 - 60 [facility] IU[facility]L [facility] Specimen Anatomical Collection Method Collection Time Receive d Time (Source) Location / / Volume Laterality 11/19/2011 3:30 PM 2 3:53 LONG CHAIN QUILLER TENDER PM LONG CHAIN QUILLER TENDER John Arroyo MD EC CHEMISTRY ORDERABLES Performing Organization Address City/State/ZIP Code Phon e Number [facility] AMYLASE (11/19/2011 3:30 PM LONG CHAIN QUILLER TENDER) P athologist Signature AMYLASE 59 30 - 105 [facility] [facility] Specimen Anatomical Collection Method Collection Time Receive d Time (Source) Location / / Volume Laterality 11/19/2011 3:30 PM 2 3:53 LONG CHAIN QUILLER TENDER PM LONG CHAIN QUILLER TENDER John Arroyo MD EC CHEMISTRY ORDERABLES Performing Organization Address City/State/ZIP Code Phon e Number [facility] (ABNORMAL) DIFFERENTIAL (11/18/2011 11:53 AM LONG CHAIN QUILLER TENDER) Patholo gist Method Time Signature NEUTROPHIL % 81.3 (H) 40.0 - [place] 80.0 % LABORATORY LYMPHOCYTE % 9.8 (L) 10.0 - [place] 44.0 % LABORATORY MONOCYTE % 7.6 3.0 - 15.0 [place] % [facility] EOSINOPHIL % 0.9 0.0 - 8.0 [place] % [facility] BASOPHIL % 0.4 0.0 - 3.0 [place] % [facility] NEUTROPHIL ABS 7.2 1.7 - 8.5 [place] 109/L LABORATORY LYMPHOCYTE ABS 0.9 0.9 - 3.6 [place] 109/L LAB[facility] MONOCYTE ABS 0.7 0.3 - 1.0 [place] 109/L LAB[facility] EOSINOPHIL ABS 0.1 0.0 - 0.6 [place] 109/L LAB[facility] BASOPHIL ABS 0.0 0.0 - 0.3 [place] 109/L [facility] Specimen Anatomical Collection Method Collection Time Receive d Time (Source) Location / / Volume Laterality 11/18/2011 11:53 11/18/2011 AM LONG CHAIN QUILLER TENDER 12:36 PM LONG CHAIN QUILLER TENDER John Arroyo MD EC LABORATORY Performing Organization Address City/[facility]/ZIP Code Phon e Number [facility] (ABNORMAL) LIPID PROFILE (11/18/2011 11:53 AM LONG CHAIN QUILLER TENDER) P athologist Signature Cholesterol 137 100 - 200 [place] mg/dL LABORATORY Comment: Total Cholesterol Reference Ranges Desirable: ? <200 ?mg/dL Borderline High: ?? 200-239 mg/dL High: ?>239 ?mg/ dL TRIGLYCERIDE 104 35 - 150 mg/dL [facility] HDL CHOLESTEROL 34 (L) 35 - 55 mg/dL [facility] LDL- CALCULATED 82 1 - 130 mg/dL [facility] Specimen Anatomical Collection Method Collection Time Receive d Time (Source) Location / / Volume Laterality 11/18/2011 11:53 11/18/2011 AM LONG CHAIN QUILLER TENDER 12:36 PM LONG CHAIN QUILLER TENDER John Arroyo MD EC CHEMISTRY ORDERABLES ABN Performing Organization Address City/State/ZIP Code Phon e Number [facility] (ABNORMAL) A1C(HGB AIC) (11/18/2011 11:53 AM LONG CHAIN QUILLER TENDER) P athologist Signature A1C (HGB AIC) 6.3 (H) 0.0 - 6.0 [facility] % [facility] Est Average 134 mg/dL [facility] Glucose [facility] Specimen Anatomical Collection Method Collection Time Receive d Time (Source) Location / / Volume Laterality 11/18/2011 11:53 11/18/2011 AM LONG CHAIN QUILLER TENDER 12:36 PM LONG CHAIN QUILLER TENDER John Arroyo MD EC CHEMISTRY ORDERABLES ABN Performing Organization Address City/[facility] Code Phon e Number [facility] (ABNORMAL) LIPASE (11/18/2011 11:53 AM LONG CHAIN QUILLER TENDER) athologist Signature LIPASE 88 (H) 13 - 60 [facility] Specimen Anatomical Collection Method Collection Time Receive d Time (Source) Location / / Volume Laterality 11/18/2011 11:53 11/18/2011 AM LONG CHAIN QUILLER TENDER 12:36 PM LONG CHAIN QUILLER TENDER John Arroyo MD EC CHEMISTRY ORDERABLES Performing Organization Address City/State/ZIP Code Phon e Number [facility] AMYLASE (11/18/2011 11:53 AM LONG CHAIN QUILLER TENDER) athologist Signature AMYLASE 64 30 - 105 [facility] Specimen Anatomical Collection Method Collection Time Receive d Time (Source) Location / / Volume Laterality 11/18/2011 11:53 11/18/2011 AM LONG CHAIN QUILLER TENDER 12:36 PM LONG CHAIN QUILLER TENDER John Arroyo MD EC CHEMISTRY ORDERABLES Performing Organization Address City/State/ZIP Code Phon e Number [facility] (ABNORMAL) COMPR MET PANEL (11/18/2011 11:53 AM LONG CHAIN QUILLER TENDER) P athologist Signature SODIUM 140 136 - 144 [facility] mEq/L [facility] POTASSIUM 4.5 3.4 - 4.6 [facility] mEq/L [facility] Chloride 101 98 - 107 [place] mEq/L [facility] CO2 27 22 - 32 [place] mEq/L [facility] GLUCOSE 140 (H) 70 - [address] [facility] mg/dL LABORATORY BUN 13 8 - [address] [facility] mg/dL LABORATORY Creatinine 1.20 0.60 - 1.[address] [facility] mg/dL LABORATORY GFR CALC >[address] [facility] LAB[facility]ATORY Comment: GFR Normal: >60 mL/min/1.73 m2 Calcium 9.6 8.8 - 10.4 mg/dL [facility] LABO RATORY Protein, Total 7.5 6.6 - 8.7 gm/dL [facility] LABORATORY Albumin 4.5 3.5 - 5.1 gm/dL [facility] LABOR ATORY ALK PHOSPHATASE 116 40 - 129 IU/L [facility] L ABORATORY ALT(SGPT) 63 (H) 0 - 41 IU/L [facility] LABORATOR Y AST(SGOT) 27 0 - 40 IU/L [facility] LABORATOR Y TOTAL BILIRUBIN 0.8 0.0 - 1.2 mg/dL [facility] LABORATORY ANION GAP 16.[address] [facility] Specimen Anatomical Collection Method Collection Time Receive d Time (Source) Location / / Volume Laterality 11/18/2011 11:53 11/18/2011 AM LONG CHAIN QUILLER TENDER 12:36 PM LONG CHAIN QUILLER TENDER John Arroyo MD EC CHEMISTRY ORDERABLES Performing Organization Address City/State/ZIP Code Phon e Number [facility] HEMOGRAM/DIFF (11/18/2011 11:53 AM LONG CHAIN QUILLER TENDER) P athologist Signature WBC 8.9 3.4 - 10.[address] [facility] 109/L LABORATORY RBC 4.58 4.20 - 5.[address] [facility] 1012/L LABORATORY HGB 13.6 13.0 - 17.[address] [facility] g/dL LABORATORY HCT 38.2 37.5 - 51.[address] [facility] % LABORATORY MCV 83.5 82.0 - 99.[address] [facility] fL LABORATORY MCH 29.8 27.0 - 34.[address] [facility] pg LABORATORY MCHC 35.6 32.0 - 35.7 [facility] g[facility] LAB[facility] RDW 13.1 11.0 - 15.[address] [facility] % LABORATORY PLT 223 150 - [address] [facility] 109/L LABORATORY Specimen Anatomical Collection Method Collection Time Receive d Time (Source) Location / / Volume Laterality 11/18/2011 11:53 11/18/2011 AM LONG CHAIN QUILLER TENDER 12:36 PM LONG CHAIN QUILLER TENDER John Arroyo MD EC HEMATOLOGY ORDERABLES Performing Organization Address City/State/ZIP Code Phon e Number [facility] documented in this encounter Visit Diagnoses Diagnosis Acute pancreatitis - Primary Diabetes mellitus type II Type II or unspecified type diabetes sadia litus without mention of complication, not stated as uncontrolled documented in this encounter Historical Medications This list may reflect changes made after this encounter. Medication Sig Dispensed Refills Start Date End Date HYDROcodone-acetamino Take 1 Tab by mouth 0 11/1803/15/2012 phen (VICODIN, every four hours as LORTAB) 5-500 MG per needed for Pain. tablet Acetaminophen should be limited to 4000 mg per day. added in this encounter Care Teams Sap Portal Architect Relationship Specialty Start Date End Date John Arroyo MD PCP - General Family Medicine 11/18/11 03/03/12[address] [id number] documented as of this encounter
--- OUTSIDE RECORDS SUMMARY | 2022-09-20 12:29 | XMS_ITS | Encounter Summary ---
:1950 Author Organization [facility] Address [address] [address] Phone Care Team Providers Name Role Phone Richardson Graham MD Primary Care Provider Reason for Visit Reason Onset Date Comments Lab Work 03/02/2012 Encounter Details Date Type Department Care Team Description 03/02/2012 [facility]ap[facility] LPN Lab Work MEDICINE [address] [place] [address] Social History Tobacco Use Types Packs/Day Years Used Date Smoking Tobacco: Never Smokeless Tobacco: Never Alcohol Use Standard Drinks/Week Comments No 0 (1 standard drink = 0.6 oz pure alcoho l) occasional Sex Assigned at Date Recorded Not on file documented as of this encounter Miscellaneous Notes Telephone Encounter - Thea Zapata LPN - 03/02/2012 1:12 PM CDT Pt called & request the order to be placed in for his diabetic check Telephone Encounter - Thea Zapata LPN - 03/02/2012 1:12 PM CDT Message copied by THEA ZAPATA. on FriMarch 02, 2012 1:12 PM ------ Message from: ANGEL VALDES Created: FriMarch 02, 2012 11:34 AM Contact: Jose Diaz! Pt called and scheduled a lab appointment, and needs orders for lab work - Pt stated that he does this as a diabetic check and has it done every 3-4 months. If there are any issues please call me or the patient. Thanks! Angel- [facility] Ext [phone] documented in this encounter Plan of Treatment Not on filedocumented as of this encounter Visit Diagnoses Not on filedocumented in this encounter Care Teams Lead Systems Architect Relationship Specialty Start Date End Date Richardson Graham MD PCP - General Family Medicine 11/18/11 03/03/12[address] [id number] documented as of this encounter
--- OUTSIDE RECORDS SUMMARY | 2022-09-20 12:29 | XMS_ITS | Encounter Summary ---
:1950 Author Organization [facility] Address [address] [address] Phone Care Team Providers Name Role Phone Richardson Graham MD Primary Care Provider Encounter Details Date Type Department Care Team Description 08/17/2012 Orders Only [facility] Routin e general medical examination at a health care facility; [facility] Acute pancreatitis; 2023 [facility] Malaise; Santa Diabetes mellitus type II; LUCERO [place] [id number] Elevated troponin [phone] Social History Tobacco Use Types Packs/Day Years Used Date Smoking Tobacco: Never Smokeless Tobacco: Never Alcohol Use Standard Drinks/Week Comments No 0 (1 standard drink = 0.6 oz pure alcoho l) occasional Sex Assigned at Date Recorded Not on file documented as of this encounter Plan of Treatment Not on filedocumented as of this encounter Results (ABNORMAL) A1C(HGB AIC) (09/10/2012 7:[address]) P athologist Signature A1C (HGB AIC) 8.5 (H) 4.0 - 6.0 [facility] Est Average 197 mg/dL [facility] Glucose LABORATORY Specimen Anatomical Collection Method Collection Time Receive d Time (Source) Location / / Volume Laterality 09/10/2012 7:28 AM 2 7:[address] SUPERVISOR Richardson Graham MD EC CHEMISTRY ORDERABLES ABN Performing Organization Address City/State/ZIP Code Phon e Number [facility] HGB (09/10/2012 7:[address]) athologist Signature HGB 14.7 13.0 - 17.0 [facility] g/dL LABORATORY Specimen Anatomical Collection Method Collection Time Receive d Time (Source) Location / / Volume Laterality 09/10/2012 7:28 AM 2 7:[address]PER[address] AM [address] SUPERVISOR Richardson Graham MD EC HEMATOLOGY ORDERABLES Performing Organization Address City/[facility]/ZIP Code Phon e Number [facility] AMYLASE (09/10/2012 7:[address]) athologist Signature AMYLASE 15 12 - 148 [facility] Specimen Anatomical Collection Method Collection Time Receive d Time (Source) Location / / Volume Laterality 09/10/2012 7:28 AM 2 7:[address]PER[address] AM [address] SUPERVISOR Richardson Graham MD EC CHEMISTRY ORDERABLES Performing Organization Address City/[facility]/ZIP Code Phon e Number [facility] LIPASE (09/10/2012 7:[address]) athologist Signature LIPASE 17 12 - 84 [facility] Specimen Anatomical Collection Method Collection Time Receive d Time (Source) Location / / Volume Laterality 09/10/2012 7:28 AM 2 7:[address]PERVIS[address] AM [address] SUPERVISOR Richardson Graham MD EC CHEMISTRY ORDERABLES Performing Organization Address City/[facility]/ZIP Code Phon e Number [facility] (ABNORMAL) LIPID PROFILE (09/10/2012 7:[address]) athologist Signature Cholesterol 163 114 - 200 [facility] mg/dL LAB[facility]ATORY Comment: Total Cholesterol Reference Ranges Desirable: ? <200 ?mg/dL Borderline High: ?? 200-239 mg/dL High: ?>239 ?mg/ dL TRIGLYCERIDE 457 (H) 10 - 200 mg/dL [facility] Comment: ??TRIGLYCERIDE GREATER THAN 400, BUT LE SS THAN 1300 ?A DIRECT MEASURED LDL WILL BE P ERFORMED. ?Triglyceride If patient is non-fasting, the result of the triglyceride is invalid. ?? Triglyceride Reference Ranges ?? Normal: ? <150 ?mg/ dL ?? Borderline High: ??150-199 mg/dL ?? High: ? 200-499 mg/d L ?? Very High: ?>500 ?mg/d L HDL CHOLESTEROL 25 (L) 40 - 60 mg/dL [facility] LDL- CALCULATED Not Indicated mg/dL [facility] Comment: LDL Cholesterol Reference Ranges Optimal: ?<100 ? mg/dL Near Optimal: ? 100-129 ??mg/dL Borderline High: ??130-159 ??mg/dL High: ? 160-189 ??mg/dL Very High: ?>189 ? mg/dL Specimen Anatomical Collection Method Collection Time Receive d Time (Source) Location / / Volume Laterality 09/10/2012 7:28 AM 2 7:[address] AM [address] SUPERVISOR Richardson Graham MD EC CHEMISTRY ORDERABLES ABN Performing Organization Address City/State/ZIP Code Phon e Number [facility] (ABNORMAL) COMPR MET PANEL (09/10/2012 7:[address]) P athologist Signature SODIUM 140 134 - 143 [place] mEq/L LAB[facility] POTASSIUM 4.8 3.4 - 5.1 [facility] mEq/L [facility] Chloride 106 99 - 110 [facility] mEq/L [facility] CO2 24 22 - 32 [facility] mEq/L [facility] GLUCOSE 191 (H) 70 - 99 [place] mg/dL LABORATORY Comment: Current ADA criteria are ?Normal: 70-99 mg/dL ?Impaired Fasting Glucose: 100-125 mg/dL ?Diabetes Mellitus: at or above 126 mg/dL The diagnosis of diabetes must be confi rmed on a subsequent day by measuring FPG, 2-hr PG or random plasma glucose (if symptoms are present). BUN 15 5 - 24 mg/dL [facility] RY Creatinine 1.44 (H) 0.70 - 1.20 mg/dL [facility] LA [facility] GFR CALC 50 (A) [facility] Comment: GFR Normal: >60 mL/min/1.73 m2 Calcium 9.5 8.4 - 10.2 mg/dL [facility] LAB[facility]ATORY Protein, Total 6.9 6.0 - 8.0 g/dL [facility] Albumin 4.2 3.5 - 5.0 g/dL [facility] ALK PHOSPHATASE 70 35 - 100 IU/L [facility] ALT(SGPT) 36 5 - 40 IU/L [facility] LABOR[facility] Y AST(SGOT) 28 10 - 40 IU/L [facility] RY TOTAL BILIRUBIN 0.6 0.2 - 1.4 mg/dL [facility] ANION GAP 10 3 - 15 [facility] Specimen Anatomical Collection Method Collection Time Receive d Time (Source) Location / / Volume Laterality 09/10/2012 7:28 AM 2 7:[address] AM [address] SUPERVISOR Richardson Graham MD EC CHEMISTRY ORDERABLES Performing Organization Address City/State/ZIP Code Phon e Number [facility] documented in this encounter Visit Diagnoses Diagnosis Routine general medical examination at a health care facility Acute pancreatitis Malaise Other malaise and fatigue Diabetes mellitus type II Type II or unspecified type diabetes sadia litus without mention of complication, not stated as uncontrolled Elevated troponin Other abnormal blood chemistry documented in this encounter Care Teams Assistant Toddler Teacher Relationship Specialty Start Date End Date Richardson Graham MD PCP - General Family Medicine 04/06/12 07/18/14[address] [address] documented as of this encounter
--- OUTSIDE RECORDS SUMMARY | 2022-09-20 12:29 | XMS_ITS | Encounter Summary ---
:1950 Author Organization [employer] Address [address] [address] Phone Care Team Providers Name Role Phone Richardson Graham MD Primary Care Provider Reason for Visit Reason Comments Follow Up Encounter Details Date Type Department Care Team Description 10/09/2011 Office Visit [facility] Сергей Batres, Follow-u p examination, Clinic Surgery MD following unspecified [address] surgery ( Primary Dx) [place] [address] [place], [place] [phone] [id number] Social History Tobacco Use Types Packs/Day Years Used Date Smoking Tobacco: Never Smokeless Tobacco: Never Alcohol Use Standard Drinks/Week Comments No 0 (1 standard drink = 0.6 oz pure alcoho l) occasional Sex Assigned at Date Recorded Not on file documented as of this encounter Last Filed Vital Signs Vital Sign Reading Time Taken Comments Blood Pressure 122/64 10/09/2011 11:45 AM GREEN PRIZE PACKER Pulse - - Temperature - - Respiratory Rate - - Oxygen Saturation - - Inhaled Oxygen Concentration - - Weight 115.2 kg (254 lb) 10/09/2011 11:45 AM GREEN PRIZE PACKER Height 177.8 cm (5' 10) 10/09/2011 11:45 AM GREEN PRIZE PACKER Body Mass Index 36.45 10/09/2011 11:45 AM GREEN PRIZE PACKER documented in this encounter Progress Notes Сергей Batres MD - 10/10/2011 6:59 AM CST [facility] Patient Name: ALINE PABON Date of Service: 10/09/2011 : 1950 Age: 61Y Sex: M DC Site MRN: Patient Loc/Room #: BRBMCSUR/ Provider: Сергей Batres MD, FACS, General Surgery OFFICE NOTE SITE: [facility] SUBJECTIVE: A 61-year-old gentleman following up of his laparoscopic cholecystectomy. He is doing well from the surgery. Apparently he did get readmitted on October 02 with a worsening of his abdominal pain. He had a flare up of the pancreatitis that he had perioperatively and discharged on the .He is feeling good now. They have got him on a low-fat diet, but he is doing well and not having anypain. No surgical pain. Bowels are working. OBJECTIVE: Exam shows a soft abdomen with nicely healing incisions. ASSESSMENT: Good postop recovery with a re-flare for pancreatitis as noted. PLAN: At this point in time he is released to regular diet and activity although maintaining the dietary restrictions in terms of low-fat until he has his followup visit on, I believe it is, October 17 with Deneen Cottrell and Gladys. I told him that I was available if there are any questions or concerns but did not see any reason to see him again unless something was a problem and the labs could be recheckedby the visits mentioned above. At this point in time we will follow up p.r.n. unless something changes. ELECTRONICALLY SIGNED Сергей Batres MD, FACS [facility] General Surgery cc: MD Richardson Mueller MD /JGONZALES Job ID: [id number] /roly Document ID: [id number] N PRIZE PACKER Сергей Batres MD - 10/09/2011 11:57 AM CST This note has been dictated. N PRIZE PACKER Radha Oscar LPN - 10/09/2011 11:44 AM CST Fall Risk No N PRIZE PACKER documented in this encounter Plan of Treatment Not on filedocumented as of this encounter Visit Diagnoses Diagnosis Follow-up examination, following unspeci fied surgery - Primary documented in this encounter Discontinued Medications Medication Sig Discontinue Reason Start Date End Date HYDROcodone-acetamin Take 1 Tab by mouth Course of treatment 10/09/2011 ophen (NORCO) 10-325 every six hours as completed MG per tablet needed. Acetaminophen should be limited to 4000 mg per day. documented as of this encounter Care Teams Sericulturist Relationship Specialty Start Date End Date Richardson Graham MD PCP - General Family Medicine 09/17/11 10/10/112023 [address] [id number] documented as of this encounter
--- OUTSIDE RECORDS SUMMARY | 2022-09-20 12:29 | XMS_ITS | Encounter Summary ---
:1950 Author Organization [employer] Address [address] [address] Phone Care Team Providers Name Role Phone Richardson Graham MD Primary Care Provider Reason for Visit Reason Comments Refill Request Encounter Details Date Type Department Care Team Description 04/08/2012 [facility] Jack villeda MD Refill Request CARE [address] [address] [place] [address] [place], [place] [address] [phone] Social History Tobacco Use Types Packs/Day Years Used Date Smoking Tobacco: Never Smokeless Tobacco: Never Alcohol Use Standard Drinks/Week Comments No 0 (1 standard drink = 0.6 oz pure alcoho l) occasional Sex Assigned at Date Recorded Not on file documented as of this encounter Ordered Prescriptions Prescription Sig Dispensed Refills Start Date End Date triamcinolone acetonide APPLY SPARINGLY 80 g 2 012 05/18/2012 (KENALOG) 0.1 % cream TWICE DAILY documented in this encounter Plan of Treatment Not on filedocumented as of this encounter Visit Diagnoses Not on filedocumented in this encounter Discontinued Medications Medication Sig Discontinue Reason Start Date End Date triamcinolone acetonide Apply topically two 04/06/2012 04/08/2012 (KENALOG) 0.1 % times a day. creamIndications: Rash documented as of this encounter Care Teams Director Home Relationship Specialty Start Date End Date Richardsno Graham MD PCP - General Family Medicine 04/06/12 07/18/14[address] [address] documented as of this encounter
--- OUTSIDE RECORDS SUMMARY | 2022-09-20 12:29 | XMS_ITS | Encounter Summary ---
:1950 Author Organization [employer] Address [address] [address] Phone Care Team Providers Name Role Phone Richardson Graham MD Primary Care Provider Reason for Visit Reason Comments Refill Request Encounter Details Date Type Department Care Team Description 04/20/2012 Refill [facility] Olivia Graham MD Refill Request FAMILY MEDICINE [address] 2023 [facility] [address] [place] [address] [phone] Social History Tobacco Use Types Packs/Day Years Used Date Smoking Tobacco: Never Smokeless Tobacco: Never Alcohol Use Standard Drinks/Week Comments No 0 (1 standard drink = 0.6 oz pure alcoho l) occasional Sex Assigned at Date Recorded Not on file documented as of this encounter Ordered Prescriptions Prescription Sig Dispensed Refills Start Date End Date metFORMIN (GLUCOPHAGE) TAKE ONE TABLET BY 180 Tab 2 04/2002/15/2013 1000 MG tablet MOUTH TWICE DAILY documented in this encounter Plan of Treatment Not on filedocumented as of this encounter Visit Diagnoses Not on filedocumented in this encounter Discontinued Medications Medication Sig Discontinue Reason Start Date End Date metFORMIN (GLUCOPHAGE) TAKE ONE TABLET BY 03/18/2011 04/20/2012 1000 MG tablet MOUTH TWICE DAILY documented as of this encounter Care Teams Chief Librarian Work With Blind Relationship Specialty Start Date End Date Richardson Graham MD PCP - General Family Medicine 04/06/12 07/18/14[address] [place] [address] documented as of this encounter
--- OUTSIDE RECORDS SUMMARY | 2022-09-20 12:29 | XMS_ITS | Encounter Summary ---
:1950 Author Organization [employer] Address [address] [address] Phone Care Team Providers Name Role Phone Unavailable Primary Care Provider Unavailable Reason for Visit Reason Comments Refill Request Encounter Details Date Type Department Care Team Description 10/18/2011 Refill [facility] Luis Laughlin MD Refill Request FAMILY MEDICINE [address] [place] [address] [place] [address] [place], [place] [id number] [phone] Social History Tobacco Use Types Packs/Day Years [...] MG tablet TAKE ONE TABLET BY MOUTH 15 Tab 6 10/26/2012 NEEDED documented in this encounter Plan of Treatment Not on filedocumented as of this encounter Visit Diagnoses Not on filedocumented in this encounter Discontinued Medications Medication Sig Discontinue Reason Start Date End Date CIALIS 20 MG tablet 1 tablet, ORAL, DAILY, 02/08/2010 10/18/2011 PRN [id number], 02/08/10 8:24:43 documented as of this encounter
--- OUTSIDE RECORDS SUMMARY | 2022-09-20 12:29 | XMS_ITS | Encounter Summary ---
:1950 Author Organization [employer] Address [address] [address] Phone Care Team Providers Name Role Phone Richardson Graham MD Primary Care Provider Reason for Visit Reason Onset Date Comments Refill Request 12/09/2011 Encounter Details Date Type Department Care Team Description 12/09/2011 Refill [facility] Qing Sanford LPN Refill Request FAMILY MEDICINE 2023 [facility] [place] [address] Social History Tobacco Use Types Packs/Day Years [...] 1 Tab by mouth 90 Tab 3 0 12/09/2011 01/02/2013 tablet one time a day. documented in this encounter Plan of Treatment Not on filedocumented as of this encounter Visit Diagnoses Not on filedocumented in this encounter Discontinued Medications Medication Sig Discontinue Reason Start Date End Date amLODIPine (NORVASC) 5 MG Take 1 Tab by mouth 10/07/20 11 12/09/2011 tablet one time a day. documented as of this encounter Care Teams Global Implementation Manager Relationship Specialty Start Date End Date Richardson Graham MD PCP - General Family Medicine 11/18/11 03/03/12[address] [place] [address] documented as of this encounter
--- OUTSIDE RECORDS SUMMARY | 2022-09-20 12:30 | XMS_ITS | Encounter Summary ---
:1950 Author Organization [employer] Address [address] [address] Phone Care Team Providers Name Role Phone Richardson Grhaam MD Primary Care Provider Reason for Visit Reason Onset Date Comments Other 09/20/2011 Encounter Details Date Type Department Care Team Description 09/20/2011 Telephone [facility] FAMILY Oren Sawyer LPN Other MEDICINE 2023 [facility] [place], [place] [address] Social History Tobacco Use Types Packs/Day Years Used Date Smoking Tobacco: Never Smokeless Tobacco: Never Alcohol Use Standard Drinks/Week Comments Not Asked 0 (1 standard drink = 0.6 oz pure alcoho l) Sex Assigned at Date Recorded Not on file documented as of this encounter Miscellaneous Notes Telephone Encounter - Amy Sawyer LPN - 09/20/2011 4:[address] corry yuan on results of his ct abdomen today.pt notified [employer]IST IN CHARGE OWNER documented in this encounter Plan of Treatment Not on filedocumented as of this encounter Visit Diagnoses Not on filedocumented in this encounter Care Teams [employer] Crew Boss Relationship Specialty Start Date End Date Richardson Graham MD PCP - General Family Medicine 09/17/11 10/10/112023 [address] [place] [address] documented as of this encounter
--- OUTSIDE RECORDS SUMMARY | 2022-09-20 12:30 | XMS_ITS | Encounter Summary ---
:1950 Author Organization [employer] Address [address] [address] Phone Care Team Providers Name Role Phone John Arroyo MD Primary Care Provider Reason for Visit Reason Comments Hospital Follow Up Encounter Details Date Type Department Care Team Description 09/26/2011 Office Visit [facility] John Arroyo MD Acute pancreatitis; [facility] [place] [address] Diabetes mellitus type II; 2023 [facility] Renal insufficiency; [place] Essential hypertension, [place] [phone] Social History Tobacco Use Types Packs/Day Years Used Date Smoking Tobacco: Never Smokeless Tobacco: Never Alcohol Use Standard Drinks/Week Comments No 0 (1 standard drink = 0.6 oz pure alcoho l) occas Sex Assigned at Date Recorded Not on file documented as of this encounter Last Filed Vital Signs Vital Sign Reading Time Taken Comments Blood Pressure 120/62 09/26/2011 2:32 PM CASINO GAMING WORKER Pulse 64 09/26/2011 2:32 PM CASINO GAMING WORKER Temperature - - Respiratory Rate - - Oxygen Saturation - - Inhaled Oxygen Concentration - - Weight 118.4 kg (261 lb) 09/26/2011 2:32 PM CASINO GAMING WORKER Height - - Body Mass Index 37.45 09/24/2011 12:38 PM CASINO GAMING WORKER documented in this encounter Progress Notes John Arroyo MD - 09/26/2011 6:26 PM CASINO GAMING WORKER Addended by: JOHN ARROYO on: 09/26/2011 06:26 PM Modules accepted: Orders NO GAMING WORKER John Arroyo MD - 09/26/2011 6:17 PM CST This note has been dictated. NO GAMING WORKER documented in this encounter Nursing Notes 09/26/2011 2:00 PM CST >> TANISHA ROBBINS LPN Crista Sep 26, 2011 2:33 PM Depression ([place]) Screening Questions 1. During the past month, have you often been bothered by feeling down, depressed, or hopeless? Not at all 2. During the past month, have you often been bothered by little interest or pleasure in doing things? Not at all Fall Risk No documented in this encounter Plan of Treatment Not on filedocumented as of this encounter Results (ABNORMAL) LIPID PROFILE (11/18/2011 11:53 AM CASINO GAMING WORKER) athologist Signature Cholesterol 137 100 - 200 [...] / Volume Laterality 11/18/2011 11:53 11/18/2011 AM CASINO GAMING WORKER 12:36 PM CASINO GAMING WORKER John Arroyo MD EC CHEMISTRY ORDERABLES ABN Performing Organization Address City/State/ZIP Code Phon e Number [facility] (ABNORMAL) A1C(HGB AIC) (11/18/2011 11:53 AM CASINO GAMING WORKER) athologist Signature A1C (HGB AIC) 6.3 (H) 0.0 - 6.0 [facility] Est Average 134 mg/dL [facility] Specimen Anatomical Collection Method Collection Time Receive d Time (Source) Location / / Volume Laterality 11/18/2011 11:53 11/18/2011 AM CASINO GAMING WORKER 12:36 PM CASINO GAMING WORKER John Arroyo MD EC CHEMISTRY ORDERABLES ABN Performing Organization Address City/State/ZIP Code Phon e Number [facility] documented in this encounter Visit Diagnoses Diagnosis Acute pancreatitis Diabetes mellitus type II Type II or unspecified type diabetes sadia litus without mention of complication, not stated as uncontrolled Renal insufficiency Unspecified disorder of kidney and urete r Essential hypertension, benign documented in this encounter Orders Lab Orders Without Results Count Last Ordered Date Fir st Ordered Date AST 1 09/26/2011 documented in this encounter Care Teams Data Migration Consultant Relationship Specialty Start Date End Date John Arroyo MD PCP - General Family Medicine 09/17/11 10/10/112023 [address] [address] documented as of this encounter
--- OUTSIDE RECORDS SUMMARY | 2022-09-20 12:30 | XMS_ITS | Encounter Summary ---
:1950 Author Organization [employer] Address [address] [place] [id number] Phone Care Team Providers Name Role Phone Richardson Graham MD Primary Care Provider Reason for Visit Auth/Cert (Routine) - Closed Specialty Diagnoses / Procedures Referred By Contact Refer red To Contact Diagnoses biliary sludge [facility] Main Or Procedures LAPAROSCOPY, CHOLECYSTECTOMY, CHOLANGIOGRAM- [address] [place] [address] Referral ID Status Reason Start Date Expiration Date Visits Requ ested Visits Authorized [id number] Closed 1 1 Encounter Details Date Type Department Care Team Description 09/25/2011 Surgery [facility] Сергей Batres LAPAR OSCOPY CHOLECYSTECTOMY Center OR WITH CHOLANGIOGRAM [address] [place] [address] [address] [phone] [place] [address] Surgery Details Date/Time Status Location OR Service Patient Class Case Case Trauma Class Type Case? 09/25/11 1:00 Posted [facility] BR OR General Outpatient [place] [id number] Surgery MAIN OR Panel 1 Procedure LRB Anes Op Region Wound Class Commen ts LAPAROSCOPY CHOLECYSTECTOMY WITH N/A General Abdomen Bernabe an Contaminated CHOLANGIOGRAM Surgeon Surgeon Role Service Panel Сергей Batres MD Primary General 1 documented in this encounter Social History Tobacco Use Types Packs/Day Years Used Date Smoking Tobacco: Never Smokeless Tobacco: Never Alcohol Use Standard Drinks/Week Comments No 0 (1 standard drink = 0.6 oz pure alcoho l) occas Sex Assigned at Date Recorded Not on file documented as of this encounter Last Filed Vital Signs Vital Sign Reading Time Taken Comments Blood Pressure 147/82 09/26/2011 7:58 AM AEROBICS TEACHER Pulse 53 09/26/2011 7:58 AM AEROBICS TEACHER Temperature 36.6 ??C (97.8 ??F) 09/26/2011 7:58 AM AEROBICS TEACHER Respiratory Rate 16 09/26/2011 7:58 AM AEROBICS TEACHER Oxygen Saturation 95% 09/26/2011 7:58 AM AEROBICS TEACHER Inhaled Oxygen Concentration - - Weight 116.6 kg (257 lb) 09/24/2011 12:38 PM AEROBICS TEACHER Height 177.8 cm (5' 10) 09/24/2011 12:38 PM AEROBICS TEACHER Body Mass Index 36.88 09/24/2011 12:38 PM AEROBICS TEACHER documented in this encounter Discharge Summaries Сергей Batres MD - 09/27/2011 9:05 AM CST BICS TEACHER documented in this encounter Discharge Instructions Discharge InstructionsNeeru Yusuf RN - 09/26/2011 10:03 AM CST Images from the original note were not included. Home Back SP RU CH logo GALLSTONESWITH BILIARY COLIC [confirmed dx] The abdominal pain that you have today is due to spasm of the gallbladder. The gallbladder is a small sac under the liver which stores and releases bile. Bile is a fluid that aids in the digestion of fat. A gallstone may form inside the gallbladder and block the flow of bile fluid. This causes mild tosevere crampy pain in the mid or right upper abdomen with nausea and vomiting. HOME CARE: 1. Rest in bed and follow a clear liquid diet until feeling better. If pain or nausea medicine was given to help with your symptoms, take these as directed. 2. Fat in your diet makes the gallbladder contract and may cause increased pain. Therefore, avoid fat in your diet over the next two days and follow a low-fat diet after that. If you are overweight, a low-fat diet will also help you lose weight. FOLLOW UP with your doctor. There is a 50% chance that you will have another episode of pain from your gallstones during the next 2 years. Removal of the gallbladder is the treatment of choice to prevent this. Schedule an appointment with your own doctor during the next week to discuss the treatment options. [NOTE: If you had an X-ray, CT scan, ultrasound or EKG (cardiogram), it will be reviewed by a specialist. You will be notified of any new findings that may affect your care.] GET PROMPT MEDICAL ATTENTION if any of the following occur: ?? Pain gets worse or moves to the right lower abdomen ?? Repeated vomiting ?? Swelling of the abdomen ?? Pain lasts over 6 hours ?? Fever over 100.0??F (37.8??C) or rising fever or chills ?? Weakness, dizziness or fainting ?? Dark urine or light colored stools ?? Yellow color of the skin or eyes ?? Chest, arm, back, neck or jaw pain ?? [id number] [employer], [address] [place] [address]. All rights reserved. This information is not intended as a substitute for professional medical care. Always follow your healthcare professional's instructions.Patient Discharge Instructions Reason for Visit: biliary sludge Medications: ?? Keep a written list of the medicines you take, the amounts, and when and why you take them. Bringthe list of your medications or the pill bottles when you see your caregivers. Learn why you take each medicine. Ask your caregiver for information about your medicine. Do not use any medicines, dksh-hdi-zrofjcy drugs, vitamins, herbs, or food supplements without [...] drive or use heavy equipment. Your prescriptions were given to you. Patients taking Coumadin or Lovenox - N/A Medication handouts given. vicodin Your last pain medication if applicable was given at: N/A Home Education Information Influenza Vaccine (seasonal only): Given before hospital stay. Pneumonia Vaccine (year round): Does not meet criteria TOBACCO CESSATION COUNSELING If you smoke, please quit. Avoid exposure to second hand smoke. Smoking cessation support is available at [facility] Tobacco Cessation Program- 270-9542 or QUITPLAN (7-109-619-PLAN or [employer]). Aline Shine does not smoke. We are concerned about your emotional health after discharge. If you are feeling alone, sad, or hopeless, a 24 hour suicide crisis and referral hotline is available at [employer] (6913) or toll-free at Heart Failure: N/A Instructions for Care: Seek medical attention if increased redness, pain or drainage around incisions. Increase diet as tolerated, seek medical attention if increased nausea or vomiting. Follow-up appointment and/or referrals Card Given: Yes Keep all appointments. Write down any questions you may have. This way you will remember to ask these questions during your next visit. Valuables in Safe: No Home Medications Returned to Patient: Not applicable Vitals Signs Last Vitals: BP: 147/82 mmHg Pulse: 53 Resp: 16 Temp: 36.6 ??C (97.8 ??F) SpO2: 95 % Weight: 116.574 kg (257 lb) Supplies/equipment given or has at home: Patient/Family has no further questions regarding discharge instructions at this time: No BICS TEACHER documented in this encounter Medications at Time [...] 02/06/09 18:34:57, Substitution Permitted, current med (Hx) HYDROcodone-acetaminop Take 1-2 Tabs by mouth 30 Tab 2 1 11/27/2010 09/26/2011 hen (VICODIN, LORTAB) one time for 1 dose. 5-500 MG per tablet Acetaminophen should be limited to 4000 mg per day. documented as of this encounter Ordered Prescriptions Prescription Sig Dispensed Refills Start Date End Date HYDROcodone-acetaminop Take 1-2 Tabs by mouth 30 Tab 2 1 11/27/2010 09/26/2011 hen (VICODIN, LORTAB) one time for 1 dose. 5-500 MG per tablet Acetaminophen should be limited to 4000 mg per day. documented in this encounter Discharge Disposition Disposition Code Departure Means Destination Home and/or Self Care documented in this encounter Progress Notes Сергей Batres MD - 09/27/2011 9:49 AM CST BICS TEACHER Сергей Batres MD - 09/27/2011 9:06 AM CST BICS TEACHER Mirela Antunez MD - 09/27/2011 9:06 AM CST BICS TEACHER Neeru Yusuf RN - 09/26/2011 11:18 AM CST Denies any pain, up ambulating in room without problems. Instructed on discharge instructions and follow up care, pt and expressed verbal understanding. Left safely with to return home. BICS TEACHER Malena Thacker - 09/26/2011 10:38 AM CST Pastoral visit and prayer for comfort and continued healing. BICS TEACHER Сергей Batres MD - 09/26/2011 10:02 AM CST [facility] Patient Name: ALINE SHINE Date of Service: 09/26/2011 : 1950 Age: 61Y Sex: M DC Site MRN: Patient Loc/Room #: BRSJ /2012 Provider: Сергей Batres MD, FACS, General Surgery PROGRESS NOTE SITE: [facility] POSTOP DAY #1 SUBJECTIVE: Patient is without complaints. He is passing flatus and tolerating his diet. OBJECTIVE EXAM: Vitals - are stable. Temperature is 36.6. Chest - was clear. Abdomen - soft with active bowel sounds. Dressings are dry. Legs - are without calf tenderness. ASSESSMENT: Stable post laparoscopic cholecystectomy. PLAN: Patient is comfortable with being discharged and the orders have been written, instructions are given to him. He is to watch his lifting activity for 7-10 days. Followup with me in 2 weeks. ELECTRONICALLY SIGNED Сергей Batres MD, FACS [facility] General Surgery cc: MD Richardson Guerrero MD John C. Berg, MD /JJD Job ID: [id number] /[id number] Document ID: [id number] BICS TEACHER Branden Fonseca RN - 09/25/2011 4:29 PM CST Patient arrived to floor from PACU at about 1540. Patient alert and orientated times 4. VSS. Oxygen 2L NC. Rates pain at 1/10. Orientated to room and surroundings, initial plan of care. present atbedside. Will continue to monitor. BICS TEACHER documented in this encounter Procedure Notes Сергей Batres MD - 09/25/2011 3:51 PM CSTAssociated Order(s): OPERATIVE REPORT HOSP [facility] Patient Name: ALINE SHINE Date of Service: 09/25/2011 : 1950 Age: 61Y Sex: M DC Site MRN: Patient Loc/Room #: BRSJ Provider: Сергей Batres MD, FACS, General Surgery OPERATIVE REPORT SITE: [facility] DATE: 09/25/2011 PREOPERATIVE DIAGNOSIS: Biliary sludge. POSTOPERATIVE DIAGNOSIS: Cholelithiasis. They were small stones but they were present. PROCEDURE: Laparoscopic cholecystectomy with cholangiogram. SURGEON: Сергей Batres MD ANESTHESIA: Endotracheal. ESTIMATED BLOOD LOSS: Less than 50 mL, none replaced. OPERATIVE AND ANESTHETIC COMPLICATIONS: None. DRAINS: None. FINAL SPONGE, NEEDLE, INSTRUMENT COUNT: Correct. HISTORICAL NOTE: This is a 61-year-old gentleman with a history of pancreatitis and biliary sludge on his ultrasound, admitted for elective cholecystectomy. Risks of infection, bleeding, cystic duct orcommon duct injury, stenosis, injury to the bowel, and possible need for open procedure were explained. He understands and agrees to proceed. DESCRIPTION OF PROCEDURE: After adequate general endotracheal anesthesia was obtained, the abdomen was shaved, prepped and draped in sterile fashion. Veress needle was placed in the infraumbilical position and insufflation begun with pressure between 3 and 5. We had symmetrical tympani. After complete insufflation, we replaced this with a 5 mm sheath, confirmed intraabdominal position with the camera. A lateral 5 mm sheath was placed. The gallbladder fundus was identified and grasped. It was mildly edematous and dull white in color. We percutaneously cannulated. When we aspirated back some of the dye in the process of doing the cholangiogram, we noted stones floating in that consistent with sand-like stones. We did a cholangiogram with a 60 mL injection of dye. This showed a small cystic duct, good visualization of the hepatic radicals, normal common duct, and free flow of dye in the duodenum without filling defects. The gallbladder was reflected. A 10 mm subxiphoid sheath was placed and we began dissection in the area of Calots triangle using cautery forceps. We identified the neck of the gallbladder and its junction with the cystic duct. We then doubly hemoclipped and ligated the cystic duct adjacent to the gallbladder, then doubly hemoclipped and ligated the cystic artery. Then we startedtaking the gallbladder out of the liver bed with electrocautery and we ran into another branch of the cystic artery. This was doubly clipped and ligated. The initial one was probably a small branch andthe second time appeared to be the main channel. We then took the gallbladder out of the liver bed with electrocautery hook, maintaining hemostasis throughout the liver bed with electrocautery. We got a little hole in the gallbladder and some bile spilled. We suctioned that out. We did irrigate the area with the antibiotic solution, that being 1 g of cephazolin and 1 L of lactated Ringers and 2000 units of heparin, and suctioned this out as we were going. The gallbladder was then placed into an Endobag and brought out through the subxiphoid lumen without further spillage or contamination. I then irrigated the right upper quadrant with the antibiotic solution, suctioned all that out. With hemostasis present, closure was as follows: All the sheaths were removed, decompressing as we went. I instilled 0.25% Marcaine in each of the sites for postop hypesthesia, then closed the sites with interruptedsubcuticular sutures of 4-0 Vicryl. Then they were all cleaned and dressed with adhesive, Steri-Strips, 2x2s and taped securely. The patient tolerated it well, was discharged to the recovery room in stable condition. ELECTRONICALLY SIGNED Сергей Batres MD, FACS [facility] General Surgery cc: MD Richardson Guerrero MD John C. Berg, MD /JJD Job ID: [id number] /[id number] Document ID: [id number] BICS TEACHER documented in this encounter OR Notes Anesthesia Preprocedure Evaluation - Сергей Batres MD - 09/26/2011 9:57 AM AEROBICS TEACHER BICS TEACHER Anesthesia Preprocedure Evaluation - Сергей Batres MD - 09/26/2011 9:57 AM AEROBICS TEACHER BICS TEACHER documented in this encounter Miscellaneous Notes Op Note - Сергей Batres MD - 09/27/2011 9:06 AM CST BICS TEACHER Plan of Care - Сергей Batres MD - 09/27/2011 9:05 AM CST BICS TEACHER Brief Op Note - Сергей Batres MD - 09/25/2011 2:30 PM CST 09/25/2011 SURGERY Сергей Batres MD BRIEF POST-OP NOTE Pre-Op Diagnosis: biliary sludge Post-Op Diagnosis: Cholelithiasis Procedure: LAPAROSCOPY, CHOLECYSTECTOMY, CHOLANGIOGRAM Anesthesia: General endotrachial anesthesia Specimen(s): Gall bladder Surgeon: Surgeon(s) and Role: * Сергей Batres MD - Primary Estimated Blood Loss: Less than 50 ml Replacement: None Drains: None Complications: none noted Disposition: Nursing Unit See dictated operative report for full details. BICS TEACHER documented in this encounter Plan of Treatment Pending Results Name Type Priority Associated Diagnoses Date/Ti me PATHOLOGY SPEC Pathology 09/25/2011 2: 15 PM AEROBICS TEACHER documented as of this encounter Procedures Procedure Name Priority Date/Time Associated Comments Diagnosis GLUCOSE, METER 09/26/2011 6:14 Results fo r this AM AEROBICS TEACHER procedure are i n the results section. GLUCOSE, METER 09/25/2011 11:39 Results f or this PM AEROBICS TEACHER procedure are i n the results section. GLUCOSE, METER 09/25/2011 6:38 Results fo r this PM AEROBICS TEACHER procedure are i n the results section. XR CHOLANGIOGRAM Routine 09/25/2011 2:17 Results for this OPERATIVE PM AEROBICS TEACHER procedure are i n the results section. PATHOLOGY SPEC 09/25/2011 2:15 Results fo r this PM AEROBICS TEACHER procedure are i n the results section. PATHOLOGY SPEC 09/25/2011 2:15 PM AEROBICS TEACHER LAPAROSCOPY 09/25/2011 1:39 biliary sludge CHOLECYSTECTOMY WITH PM AEROBICS TEACHER CHOLANGIOGRAM GLUCOSE, METER 09/25/2011 12:19 Results f or this PM AEROBICS TEACHER procedure are i n the results section. OPERATIVE REPORT HOSP 09/25/2011 12:00 Re sults for this PM AEROBICS TEACHER procedure are i n the results section. documented in this encounter Results (ABNORMAL) GLUCOSE, METER (09/26/2011 6:14 AM AEROBICS TEACHER) P athologist Signature GLUCOSE, METER 143 (H) 70 - 99 [place] mg/dL LABORATORY Specimen Anatomical Collection Method Collection Time Receive d Time (Source) Location / / Volume Laterality 09/26/2011 6:14 AM 1 6:25 AEROBICS TEACHER AM AEROBICS TEACHER Сергей Batres MD EC CHEMISTRY ORDERABLES Performing Organization Address City/State/ZIP Code Phon e Number [facility] (ABNORMAL) GLUCOSE, METER (09/25/2011 11:39 PM AEROBICS TEACHER) P athologist Signature GLUCOSE, METER 190 (H) 70 - 99 [place] mg/dL LABORATORY Specimen Anatomical Collection Method Collection Time Receive d Time (Source) Location / / Volume Laterality 09/25/2011 11:39 09/25/2011 PM AEROBICS TEACHER 11:45 PM AEROBICS TEACHER Сергей Batres MD EC CHEMISTRY ORDERABLES Performing Organization Address City/State/ZIP Code Phon e Number [facility] (ABNORMAL) GLUCOSE, METER (09/25/2011 6:38 PM AEROBICS TEACHER) P athologist Signature GLUCOSE, METER 256 (H) 70 - 99 [place] mg/dL LABORATORY Specimen Anatomical Collection Method Collection Time Receive d Time (Source) Location / / Volume Laterality 09/25/2011 6:38 PM 1 6:50 AEROBICS TEACHER PM AEROBICS TEACHER Сергей Batres MD EC CHEMISTRY ORDERABLES Performing Organization Address City/State/ZIP Code Phon e Number [facility] XR CHOLANGIOGRAM, OPERATIVE (09/25/2011 2:17 PM AEROBICS TEACHER) Anatomical Region Laterality Modality Abdomen, Other Radiographic Imaging Specimen (Source) Anatomical Location Collection Method / Collectio n Time Received Time / Laterality Volume Impressions 09/25/2011 5:19 PM AEROBICS TEACHER ??No evidence of stones. Narrative 09/25/2011 5:19 PM AEROBICS TEACHER CHOLANGIOGRAM 09/25/2011 INDICATION: ??Cholecystectomy. FINDINGS: ??Single image shows intraoper ative cholangiogram. ??There is opacification of the gallbladder and com mon bile duct as well as the duodenum. ??No abnormal dilatation. ??No filling defects noted. Procedure Note Richard Rushing MD - 09/25/2011 CHOLANGIOGRAM 09/25/2011 INDICATION: Cholecystectomy. FINDINGS: Single image shows intraoperat dawson cholangiogram. There is opacification of the gallbladder and common bile duct as well as the duodenum. No abnormal dilatation. No filling defects noted. IMPRESSION: No evidence of stones. Сергей Batres MD EC DIAGNOSTIC IMAGING ORDERA BLES PATHOLOGY SPEC (09/25/2011 2:15 PM AEROBICS TEACHER) Component Value Ref Test Analysis Performed At [facility] gist Range Method Time Signature PATHOLOGY SPECIMEN SOURCE [facility] SPE[facility] GALLBLADDER LABORATORY CLINICAL INFORMATION BILIARY SLUDGE MACROSCOPIC The specimen is received in a single properly labeled contai ner with two unique patient identifiers and designated gallbladder. ??The specimen consists of a gallbladder measuring 7.5 x 4 cm with an average wall thickness of 0.2 cm. ??The external surface is smooth a nd flynn-yellow. ??Upon opening the gallbladder contains minimal bile and no gallstones. ??The mucosal surface is velvety flynn-red. ??No m ass lesion is identified. ??Bag Loader sections are submitted in one c assette. JRD/LLG MICROSCOPIC Microscopic examination performed. DIAGNOSIS Gallbladder, cholecystectomy: Chronic cholecystitis. PATHOLOGIST: ??GARETT HERNDON MD Electronically Signed: ??09/26/2011 16:06 Specimen Anatomical Collection Method Collection Time Receive d Time (Source) Location / / Volume Laterality 09/25/2011 2:15 PM 1 3:14 AEROBICS TEACHER PM AEROBICS TEACHER Сергей Batres MD EC PATHOLOGY ORDERABLES Performing Organization Address City/State/ZIP Code Phon e Number [facility] (ABNORMAL) GLUCOSE, METER (09/25/2011 12:19 PM AEROBICS TEACHER) P athologist Signature GLUCOSE, METER 112 (H) 70 - 99 [place] mg/dL LABORATORY Specimen Anatomical Collection Method Collection Time Receive d Time (Source) Location / / Volume Laterality 09/25/2011 12:19 09/25/2011 PM AEROBICS TEACHER 12:25 PM AEROBICS TEACHER Сергей Batres MD EC CHEMISTRY ORDERABLES Performing Organization Address City/State/ZIP Code Phon e Number [facility] OPERATIVE REPORT HOSP (09/25/2011 12:00 PM AEROBICS TEACHER) Specimen (Source) Anatomical Collection Method Collection Time Re ceived Time Location / / Volume Laterality 09/25/2011 12:00 PM AEROBICS TEACHER Transcriptions Сергей Batres MD - 09/25/2011 3:51 PM CST [facility] Patient Name: ALINE SHINE Date of Service: 09/25/2011 : [birth year] Age: 61Y Sex: M DC Site MRN: Patient Loc/Room #: BRSJ Provider: Сергей Batres MD, FACS, [facility] Surgery OPERATIVE REPORT SITE: [facility] DATE: 09/25/2011 PREOPERATIVE DIAGNOSIS: Biliary sludge. POSTOPERATIVE DIAGNOSIS: Cholelithiasis. They were small stones but they were present. PROCEDURE: Laparoscopic cholecystectomy with cholangiogram. SURGEON: Сергей Batres MD ANESTHESIA: Endotracheal. ESTIMATED BLOOD LOSS: Less than 50 mL, n one replaced. OPERATIVE AND ANESTHETIC COMPLICATIONS: None. DRAINS: None. FINAL SPONGE, NEEDLE, INSTRUMENT COUNT: Correct. HISTORICAL NOTE: This is a 61-year-old g entleman with a history of pancreatitis and biliary sludge on his ultrasound, admitted for elective cholecystectomy. Risks of infection, bleeding, cystic duct or common duct injury, stenosis, injury to the bowel, a nd possible need for open procedure were explained. He understands and agrees to proceed. DESCRIPTION OF PROCEDURE: After adequate general endotracheal anesthesia was obtained, the abdomen was shaved, prepped and draped in sterile fashion. Veress needle was placed in the infraumbilical position and insufflation begun with pressure between 3 and 5. We had symmetrical tympani. After complete insufflation, we replaced this with a 5 mm sheath, confirmed intraabdominal position with the camera. A lateral 5 mm sheath was placed. The gallbladder fundus was i dentified and grasped. It was mildly edematous and dull white in color. We percutaneously cannulated. When we aspirated back some of the dye in the process of doing the cholangiogram, we noted stones floating in that consistent with sand-like stones. We did a cholangiogram with a 60 mL injection of dye. This showed a small cystic duct, good visualization of the hepatic radicals, normal common duct, and free flow of dye in the duodenum without filling defects. The gallbladder was reflected. A 10 mm subxiphoid sheath was placed and we began dissection in the area of Calots triangle using cautery forceps. We identified the neck of the gallbladder a nd its junction with the cystic duct. We then doubly hemoclipped and ligated the cystic duct adjacent to the gallbladder, then doubly hemoclipped and ligated the cystic artery. Then we started taking the gallbladder o ut of the liver bed with electrocautery and we ran into another branch of the cystic artery. This was doubly clipped and ligated. The initial one was probably a small branch and the second time appeared to b e the main channel. We then took the gallbladder out of the liver bed with electrocautery hook, maintaining hemostasis throughout the liver bed with electrocautery. We got a little hole in the gallbladder and some bile sp illed. We suctioned that out. We did irrigate the area with the antibiotic solution, that being 1 g of cephazolin and 1 L of lactated Ringers and 2000 units of heparin, and suctioned this out as we were going. The gallbladder was then placed into an Endo bag and brought out through the subxiphoid lumen without further spillage or contamination. I then irrigated the right upper quadrant with the antibiotic solution, suctioned all t hat out. With hemostasis present, closure was as follows: All the sheaths were removed, decompressing as we went. I instilled 0.25% Marcaine in each of the sites for postop hypesthesia, then closed the sites with interrupted subcuticular sutures of 4-0 Vicryl. Then they were all cleaned and dressed with adhesive, Steri-Strips, 2x2s and taped securely. The patient tolerated it well, was discharged to the recovery room in stabl e condition. ELECTRONICALLY SIGNED Сергей Batres MD, FACS [facility] General Surgery cc: MD Richardson Guerrero MD John C. Berg, MD /JGONZALES Job ID: [id number] Document ID: [id number] Сергей Batres MD EC PROCEDURES documented in this encounter Visit Diagnoses Not on filedocumented in this encounter Administered Medications Inactive Administered Medications Medication Order MAR Action Action Date Dose Rate Site bupivacaine-epinephrine (MARCAINE, Given 09/25/2011 1:45 PM AEROBICS TEACHER 30 mL SENSORCAINE) 0.25-1:773259 % injection NEEDED, Starting on Fri09/25/11 at 1345, Until Fri09/25/11 at 1445 cefazolin 1 g-heparin 2000 units-lactated Given 09/25/2011 1 :45 PM AEROBICS TEACHER 1,000 mL ringers 1000 mL irrigation NEEDED, Starting on Fri09/25/11 at 1345, Until Fri09/25/11 at 1445 clindamycin (CLEOCIN) 600 mg in New Bag 09/25/2011 1:33 PM AEROBICS TEACHER 600 mg 100 mL/hr sodium chloride 0.9 % (NS) 50 mL IVPB 600 mg, Intravenous, at 100 mL/hr, VEHICLE INSPECTOR TO SURGERY, 1 dose, Starting on Fri09/25/11 at 1153, Until Fri09/25/11 at 1445 clindamycin (CLEOCIN) 600 mg in New Bag 09/26/2011 6:14 AM AEROBICS TEACHER 600 mg 100 mL/hr sodium chloride 0.9 % (NS) 50 mL IVPB 600 mg, Intravenous, at 100 mL/hr, EVERY 8 HOURS, 2 doses, First dose on Fri09/25/11 at 2000, Last dose on Fri09/26/11 at 0600 [facility] 09/25/2011 9:17 PM AEROBICS TEACHER 600 mg 100 mL/hr docusate sodium (COLACE) capsule 100 mg Given 09/26/2011 8:48 AM AEROBICS TEACHER 100 mg 100 mg, Oral, 2 TIMES DAILY, First dose (after last reorder) on Fri09/26/11 at 0800, Until Discontinued fentaNYL (SUBLIMAZE) injection 50-100 mc g Given 09/25/2011 3:21 PM AEROBICS TEACHER 50 mcg 50-100 mcg, IV Push, SEE ADMINISTRATION INSTRUCTIONS, Starting on Fri09/25/11 at 1504, Until Fri09/25/11 at 1545, Pain , for rapid pain control and/or numeric pain greater than 6, FLACC greater than 4. ANESTHESIA ORDER Given 09/25/2011 3:09 PM AEROBICS TEACHER 50 mcg fentaNYL (SUBLIMAZE) injection Given by Other 09/25/2011 5:53 PM AEROBICS TEACHER 50 mcg 50-100 mcg 50-100 mcg, IV Push, ONCE, 1 dose, On Fri09/25/11 at 1330 heparin (porcine) injection 5,000 Units Given 09/26/2011 8:48 AM AEROBICS TEACHER 5,000 Units 5,000 Units, Subcutaneous, EVERY 12 HOURS, First dose on Fri09/25/11 at 2000, Until Discontinued Given 09/25/2011 8:42 PM AEROBICS TEACHER 5,000 Units HYDROmorphone (DILAUDID) injection 0.5-1 mg Given 09/25/2011 3:20 PM AEROBICS TEACHER 0.5 mg 0.5-1 mg, IV Push, EVERY 5 MINUTES NEEDED, Starting on Fri09/25/11 at 1504, Until Fri09/25/11 at 1545, Pain , to maximum dose of 3 mg for standard pain control. ANESTHESIA ORDER Given 09/25/2011 3:09 PM AEROBICS TEACHER 0.5 mg ketorolac (TORADOL) injection 15 mg Given 09/26/2011 8:48 AM AEROBICS TEACHER 15 mg 15 mg, IV Push, EVERY 6 HOURS, 4 doses, First dose on Fri09/25/11 at 1800, Last dose on Fri09/26/11 at 1500 Given 09/26/2011 3:15 AM AEROBICS TEACHER 15 mg Given 09/25/2011 9:17 PM AEROBICS TEACHER 15 mg lactated ringers infusion New Bag 09/26/2011 1:38 AM AEROBICS TEACHER 125 mL/hr Intravenous, at 125 mL/hr, CONTINUOUS, Starting on Fri09/25/11 at 1630, Until Fri09/26/11 at 1432 New Bag 09/25/2011 5:50 PM AEROBICS TEACHER 125 mL/hr Rate/Dose Verify 09/25/2011 4:55 PM AEROBICS TEACHER 125 mL/hr LACTATED RINGERS IV SOLN Given 09/25/2011 12:20 PM AEROBICS TEACHER 150 mL/hr 1 dose, Starting on Fri09/25/11 at 1228, Until Fri09/25/11 at 1220 metFORMIN (GLUCOPHAGE) tablet 1,000 mg Given 09/26/2011 8:48 AM AEROBICS TEACHER 1,000 mg 1,000 mg, Oral, 2 TIMES DAILY, First dose on Fri09/25/11 at 2000, Until Discontinued Given 09/25/2011 8:42 PM AEROBICS TEACHER 1,000 mg metoprolol tartrate (LOPRESSOR) tablet 2 5 mg Given 09/26/2011 8:49 AM AEROBICS TEACHER 25 mg 25 mg, Oral, 2 TIMES DAILY, First dose on Fri09/25/11 at 2000, Until Discontinued Given 09/25/2011 8:41 PM AEROBICS TEACHER 25 mg midazolam (VERSED) injection 1-2 mg Given by Other 09/25/2011 5:52 PM AEROBICS TEACHER 1 mg 1-2 mg, IV Push, ONCE, 1 dose, On Fri09/25/11 at 1330 morphine sulfate variable dose injection 2-8 mg Given 09/25/2011 5:48 PM AEROBICS TEACHER 4 mg 2-8 mg, IV Push, EVERY 2 HOURS NEEDED, Starting on Fri09/25/11 at 1602, Until Fri09/26/11 at 1432, Pain , severe pain ondansetron (ZOFRAN) injection 4 mg Given by Other 09/25/2011 5:52 PM AEROBICS TEACHER 4 mg 4 mg, IV Push, ONCE, 1 dose, On Fri09/25/11 at 1530 pantoprazole (PROTONIX) tablet 40 mg Given 09/26/2011 8:49 AM AEROBICS TEACHER 40 mg 40 mg, Oral, ONCE DAILY, First dose on Fri09/26/11 at 0800, Until Discontinued documented in this encounter Active and Recently Administered Medications Times are shown in AEROBICS TEACHER. Scheduled Medication Order 09/24/2011 09/25/2011 09/26/2011 clindamycin (CLEOCIN) 600 mg in sodium c hloride 0.9 % (NS) 50 mL IVPB (CANCELED) 1333 (New Bag - Provider: Xiomara Singh)1752 (Not Given - Provider: Branden Fonseca RN - Reason: Other - Comment: pre op) 600 mg, Intravenous, at 100 mL/hr, ON CA LL TO SURGERY, 1 dose, First dose on Fri09/25/11 at 1200 clindamycin (CLEOCIN) 600 mg in sodium c hloride 0.9 % (NS) 50 mL IVPB (CANCELED) 2117 (New Bag - Provider: Branden Fonseca RN) 0614 (New Bag - Provider: Shahrzad Ayers RN) 600 mg, Intravenous, at 100 mL/hr, EVERY 8 HOURS, 2 doses, First dose on Fri09/25/11 at 2000, Last dose on Fri09/26/11 at 0600 docusate sodium (COLACE) capsule 100 mg (CANCELED) 0848 (Given - Provider: Neeru Yusuf RN) 100 mg, Oral, 2 TIMES DAILY, First dose on Fri09/26/11 at 0800, Until Discontinued fentaNYL (SUBLIMAZE) injection 50-100 mcg (CANCELED) 1752 (Given by Other - Provider: Branden Fonseca RN - Comment: pre-op) 50-100 mcg, IV Push, ONCE, 1 dose, Fri09/25/11 at 1330 heparin (porcine) injection 5,000 Units (CANCELED) 2041 (Given - Provider: Branden Fonseca RN) 0848 (Given - Provider: Neeru Yusuf RN) 5,000 Units, Subcutaneous, EVERY 12 HOUR S, First dose on Fri09/25/11 at 1999, Until Discontinued HYDROcodone-acetaminophen (VICODIN, LORTAB) 5-500 MG per tab let 1-2 Tab 1750 (Not Given - Provider: Branden Fonseca RN - Reason: Other - Comment: pacu order) 1-2 Tab, Oral, ONCE, 1 dose, Fri09/25/11 at 1530 ketorolac (TORADOL) injection 15 mg (CANCELED) 2116 (Given - Provider: Branden Fonseca RN) 031 (Given - Provider: Jessica Barney)0848 (Given - Provider: Neeru Yusuf RN) 15 mg, IV Push, EVERY 6 HOURS, 4 doses, First dose on Fri09/25/11 at 1800, Last dose on Fri09/26/11 at 1500 metFORMIN (GLUCOPHAGE) tablet 1,000 mg (CANCELED) 2041 (Given - Provider: Branden Fonseca RN) 0848 (Given - Provider: Neeru Yusuf RN) 1,000 mg, Oral, 2 TIMES DAILY, First dos e on Fri09/25/11 at 2000, Until Discontinued metoprolol tartrate (LOPRESSOR) tablet 25 mg (CANCELED) 2040 (Given - Provider: Branden Fonseca RN) 0849 (Given - Provider: Neeru Yusuf RN) 25 mg, Oral, 2 TIMES DAILY, First dose o n Fri09/25/11 at 2000, Until Discontinued midazolam (VERSED) injection 1-2 mg (CANCELED) 1752 (Given by Other - Provider: Branden Fonseca RN - Comment: pre-op) 1-2 mg, IV Push, ONCE, 1 dose, Fri09/25/11 at 1330 ondansetron (ZOFRAN) injection 4 mg (CANCELED) 1752 (Given by Other - Provider: Branden Fonseca RN - Comment: pacu) 4 mg, IV Push, ONCE, 1 dose, Fri09/25/11 at 1530 pantoprazole (PROTONIX) tablet 40 mg (CANCELED) 0849 (Given - Provider: Neeru Yusuf RN) 40 mg, Oral, ONCE DAILY, First dose on Crista 09/26/11 at 0800, Until Discontinued Continuous Medication Order 09/24/2011 09/25/2011 09/26/2011 lactated ringers infusion (CANCELED) 165 5 (Rate/Dose Verify - Provider: Ninoska Ruiz RN)1750 (New Bag - Provider: Celia Delaney RN) 0138 (New Bag - Provider: Yasmine Issa LPN) Intravenous, at 125 mL/hr, CONTINUOUS, S tarting Fri09/25/11 at 1630, Until Discontinued PRN Medication Order 09/24/2011 09/25/2011 09/26/2011 bupivacaine-epinephrine (MARCAINE, SENSO RCAINE) 0.25-1:713803 % injection (CANCELED) 1345 (Given - Provider: Alicia Dumont) NEEDED, Starting Fri09/25/11 at 1345, Until Discontinued cefazolin 1 g-heparin 2000 units-lactated ringers 1000 mL irrigation (CANCELED) 1345 (Given - Provider: Сергей Batres MD) NEEDED, Starting Fri09/25/11 at 1345, Until Discontinued fentaNYL (SUBLIMAZE) injection 50-100 mcg (CANCELED) 1509 (Given - Provider: Cris Dykes, AUSTYN)1521 (Given - Provider: Cris Dykes RN) 50-100 mcg, IV Push, SEE ADMINISTRATION INSTRUCTIONS, Starting Fri09/25/11 at 1504, Until Discontinued, Pain, for rapid pain control and/or numeric pain greater than 6, FLACC greater than 4. ANESTHESIA ORDER HYDROmorphone (DILAUDID) injection 0.5-1 mg (CANCELED) 1509 (Given - Provider: Cris Dykes RN)1520 (Given - Provider: Cris Dykes RN) 0.5-1 mg, IV Push, EVERY 5 MINUTES NE EDED, Starting Fri09/25/11 at 1504, Until Discontinued, Pain, to maximum dose of 3 mg for standard pain control. ANESTHESIA ORDER morphine sulfate variable dose injection 2-8 mg (CANCELED) 1748 (Given - Provider: Celia Delaney RN) 2-8 mg, IV Push, EVERY 2 HOURS NEEDED , Starting Fri09/25/11 at 1602, Until Discontinued, Pain, severe pain No Frequency Medication Order 09/24/2011 09/25/2011 09/26/2011 LACTATED RINGERS IV SOLN (COMPLETED) 122 0 (Given - Provider: Cris Dykes RN) 1 dose, Starting Fri09/25/11 at 1228, Until Fri09/25/11 at 122 0 documented in this encounter Orders Medications Ordered That Might Not Have Count Last Ord ered Date First Ordered Date Been Administered acetaminophen (TYLENOL) tablet 325-650 mg 1 2010 atropine injection 0.4 mg 1 09/25/2011 bisacodyl (DULCOLAX) suppository 10 mg 1 1 docusate sodium (COLACE) capsule 100 mg 3 09/25/20 11 ePHEDrine 10 MG/ML IV syringe 5 mg 1 09/25/2011 hydrALAZINE (APRESOLINE) injection 5-10 mg 1 09/25 HYDROcodone-acetaminophen (LORTAB) 7.5-500 1 09/25 MG/15ML oral solution 7.5 mg HYDROcodone-acetaminophen (VICODIN, 2 09/25/2011 LORTAB) 5-500 MG per tablet 1-2 Tab hydrOXYzine (VISTARIL) capsule 25-50 mg 2 09/25/20 11 hydrOXYzine (VISTARIL) injection 25-50 mg 1 2010 ibuprofen (MOTRIN) tablet 600 mg 1 09/25/2011 labetalol (NORMODYNE, TRANDATE) injection 1 2010 5-10 mg meperidine (DEMEROL) injection 12.5-25 mg 1 2010 metoclopramide (REGLAN) injection 10 mg 1 09/25/20 11 midazolam (VERSED) injection 0.5-2 mg 1 09/25/2011 Milk of Magnesia Concentrate suspension 10 1 09/25 mL morphine sulfate variable dose injection 1 011 2-8 mg ondansetron (ZOFRAN) injection 4 mg 2 09/25/2011 sodium chloride 0.9 % (NS) infusion 1,000 2 2010 mL Diet Count Last Ordered Date First Ordered Date DIET CONSISTENT CARBOHYDRATE [facility] 1 09/26/2011 Nursing Count Last Ordered Date First Ordered Date DISCHARGE CODE STATUS 1 09/26/2011 DISCONTINUE IV 1 09/26/2011 LIFTING RESTRICTIONS 1 09/26/2011 REMOVE DRESSING 1 09/26/2011 documented in this encounter Care Teams Factory Process Workers Relationship Specialty Start Date End Date Richardson rGaham MD PCP - General Family Medicine 09/17/11 10/10/112023 [address] [address] documented as of this encounter
--- OUTSIDE RECORDS SUMMARY | 2022-09-20 12:30 | XMS_ITS | Encounter Summary ---
:1950 Author Organization [employer] Address [address] [address] Phone Care Team Providers Name Role Phone Richardson Graham MD Primary Care Provider Encounter Details Date Type Department Care Team Description 09/20/2011 Hospital Encounter [facility] Radiology C T Richardson Graham MD Abdominal pain [address] [phone] [place], [place] [address] Social History Tobacco Use Types Packs/Day Years Used Date Smoking Tobacco: Never Smokeless Tobacco: Never Alcohol Use Standard Drinks/Week Comments Not Asked 0 (1 standard drink = 0.6 oz pure alcoho l) Sex Assigned at Date Recorded Not on file documented as of this encounter Discharge Summaries Richardson Graham MD - 09/26/2011 11:33 AM CST METER INSTALLER HELPER Richardson Graham MD - 09/25/2011 10:48 AM CST METER INSTALLER HELPER documented in this encounter Medications at Time [...] Means Destination Discharged documented in this encounter Progress Notes Harriet Saucedo RN - 09/22/2011 4:21 PM CST Creatinine level to be drawn this afternoon, post CT pt received on 09-20-2011, spoke with nurse Carmel ZAMAN to watch for labs and have pt resume metformin if creatinine within normal limits. METER INSTALLER HELPER documented in this encounter Plan of Treatment Not on filedocumented as of this encounter Procedures Procedure Name Priority Date/Time Associated Diagnosis Comme nts CT ABDOMEN W IV Routine 09/20/2011 4:21 PM Abdominal pain Resu lts for this CONTRAST GAS METER INSTALLER HELPER procedure are i n the results section. documented in this encounter Results CT ABDOMEN W CONTRAST (09/20/2011 4:21 PM GAS METER INSTALLER HELPER) Anatomical Region Laterality Modality Abdomen, Pelvis Computed Tomography Specimen (Source) Anatomical Location Collection Method / Collectio n Time Received Time / Laterality Volume Impressions 09/23/2011 11:17 AM GAS METER INSTALLER HELPER ??Acute pancreatitis. ??No evidence for focal fluid collection or pseudocyst formation. ?? Narrative 09/23/2011 11:17 AM GAS METER INSTALLER HELPER CT ABDOMEN WITH INTRAVENOUS CONTRAST INDICATION: ??Acute abdominal pain FINDINGS: ??Minimal dependent atelectasi s in the right lower lobe and inferior lingula. ??There are moderate h azy inflammatory changes about the pancreas, highly suggestive of acute valdes creatitis. ??Recommend correlation with serum amylase and lipase. ??Small s plenule. ??Gallbladder, liver, and adrenal glands are normal. ??Small bilat eral renal cysts. ??Minimal scattered atherosclerotic calcifications . ??Osseous structures are unremarkable for patient age. ?? Procedure Note Rob Austin MD - 12/12/2011Forma tting of this note might be different from the original. CT ABDOMEN WITH INTRAVENOUS CONTRAST INDICATION: Acute abdominal pain FINDINGS: Minimal dependent atelectasis in the right lower lobe and inferior lingula. There are moderate hazy inflammatory changes about the pancreas, highly suggestive of acute pancreatitis. Recommend correlation with serum amylase and lipase. Small spl enule. Gallbladder, liver, and adrenal glands are normal. Small bilateral renal cysts. Minimal scattered atherosclerotic calcifications. Osseous structures are unremarkable for patient age. IMPRESSION: Acute pancreatitis. No evide nce for focal fluid collection or pseudocyst formation. Richardson Graham MD EC CT ORDERABLES documented in this encounter Visit Diagnoses Diagnosis Abdominal pain Abdominal pain, unspecified site documented in this encounter Administered Medications Inactive Administered Medications Medication Order MAR Action Action Date Dose Rate Site iohexol (OMNIPAQUE) 350 MG/ML 80 mL Given 09/20/2011 4:30 PM GAS METER INSTALLER HELPER 80 mL 80 mL, IV Push, ONCE, 1 dose, On Fri09/20/11 at 1630 Sodium Chloride 0.9% flush injection 50 mL Given 09/20/2011 4:30 PM GAS METER INSTALLER HELPER 50 mL 50 mL, IV Flush, ONCE, 1 dose, On Fri09/20/11 at 1630 documented in this encounter Care Teams Computed Tomography Scanner Operator Relationship Specialty Start Date End Date Richardson Graham MD PCP - General Family Medicine 09/17/11 10/10/112023 [address] [address] documented as of this encounter
--- OUTSIDE RECORDS SUMMARY | 2022-09-20 12:30 | XMS_ITS | Encounter Summary ---
:1950 Author Organization [facility] Address [address] [address] Phone Care Team Providers Name Role Phone Richardson Graham MD Primary Care Provider Reason for Visit Reason Comments Abdominal Pain Auth/Cert (Routine) - Closed Specialty Diagnoses / Procedures Referred By Contact Refer red To Contact Diagnoses Acute pancreatitis Diabetes mellitus type II Renal insufficiency Elevated troponin pancreatitis, elevated troponin Pancreatitis Do Not Use-[facility] [address]n [address] [place] [id number] Referral ID Status Reason Start Date Expiration Date Visits Requ ested Visits Authorized [id number] Closed 1 1 Encounter Details Date Type Department Care Team Description [facility] [address] [place] [address] [id number] Acute pancreatitis; 09/24/2011 [facility] Сергей Ramachandran MD [address] [id number] Elevated troponin; Telemetry Mirela Antunez MD [address] [id number] Diabetes mellitus type II; [address] [place] [address] Damion Biggs MD [address] [place] [id number] Renal insufficiency; LUCERO Brownlee [address] Essential hypertension, lalo gn; [phone] Diabetes mellit us (HCC); Chest pain; Cholelithiasis Social History Tobacco Use Types Packs/Day Years Used Date Smoking Tobacco: Never Smokeless Tobacco: Never Alcohol Use Standard Drinks/Week Comments No 0 (1 standard drink = 0.6 oz pure alcoho l) occas Sex Assigned at Date Recorded Not on file documented as of this encounter Last Filed Vital Signs Vital Sign Reading Time Taken Comments Blood Pressure 156/78 09/24/2011 7:43 AM ICEBOX [employer] Pulse 84 09/24/2011 7:43 AM [employer] Temperature 36.6 ??C (97.8 ??F) 09/24/2011 7:43 AM [employer] Respiratory Rate 16 09/24/2011 7:43 AM [employer]BOX [employer] Oxygen Saturation 97% 09/24/2011 4:54 AM [employer] Inhaled Oxygen Concentration - - Weight 118.3 kg (260 lb 14.4 oz) 09/24/2011 4:53 AM [employer] Height 177.8 cm (5' 10) 09/21/2011 10:31 PM [employer] Body Mass Index 37.44 09/21/2011 10:31 PM [employer] documented in this encounter Discharge Summaries Mirela Antunez MD - 09/27/2011 3:16 PM CST [facility] AMENDED REPORT Patient Name: ALINE SHINE Date of Admission: 09/21/2011 Date of Discharge: 09/24/2011 : 1950 Age: 61Y Sex: M DC Site MRN: Patient Loc/Room #: BR/ Provider: Mirela Antunez MD, Family Practice DISCHARGE SUMMARY SITE: [facility] DATE OF ADMISSION: September 21, 2011 DATE OF DISCHARGE: September 24, 2011 ADMITTING DIAGNOSIS: Pancreatitis, elevated troponin. DISCHARGE DIAGNOSES: Pancreatitis, possibly secondary to sludge, possibly secondary to lisinopril, and elevated troponin felt not to be indicative of cardiac disease. CONSULTS: 1. GI. 2. Cardiology. 3. General surgery. HISTORY: Pepper is a 61-year-old gentleman who had been having a weeks worth of exertional chest pain. He saw his primary doctor, Dr. Graham who ordered a cardiac exam and he ended up having a Cardiolitestress test on 09/19/2001, which was unremarkable. His pain persisted so Dr. Graham ordered a CT scan of the abdomen and pelvis, which showed inflammation of the pancreas consistent with pancreatitis. Hewas being managed at home with Vicodin 10/325 which he was taking every 6 hours and it did not seem be helping things so he was admitted for further workup and treatment of pancreatitis. HOSPITAL COURSE: 1. For his pancreatitis - GI has been following. The weekend physician, Dr. Torres felt that it was possibly lisinopril related. However, he then had a right upper quadrant ultrasound and was seen by Dr. Hollingsworth and because of sludge in his gallbladder it was felt that it could possibly be sludge related as well. Dr. Batres was consulted and the recommendation at the this point is to proceed with a laparoscopic cholecystectomy. He will be having that done as an outpatient. Because of the possibility of it being lisinopril related as well Lisinopril was discontinued and he was started him on metoprolol for blood pressure. 2. Elevated troponin - admission troponin was 0.122. He was seen by Dr. Yusuf who feels it was more of an incidental finding, possibly related to acute renal insufficiency at the time of admission and no further workup or treatment was needed given his recent negative Cardiolite exam. 3. Mild renal insufficiency. Admission creatinine was 1.34 and had come down to 1.19, which is his baseline. 4. Hypertension - he has been switched to metoprolol 25 mg b.i.d. and we will need to continue to monitor his blood pressures and titrate medications as an outpatient. I do think an ARB could be considered in the future, but will defer to his primary physician whether he feels lisinopril is something we would want to start or not given the coincidental time course of being on that medication with hisrecent event. 5. Diabetes - metformin was held because of the CT scan and creatinine normalized so that was restarted at discharge. 6. Constipation - he was given MiraLax, mag citrate, and a suppository with good results. Bowels aremoving now. He had had a few days of constipation even before his admission and does struggle with this on a chronic basis. He actually has had good results with fiber. He was instructed in the relative safety of that and will be discharged on a fiber supplement daily. If he is taking Vicodin for painhe will also take Colace and MiraLax. CONDITION ON DISCHARGE: Vital signs - temperature is 97.8, pulse 84, respirations 16, blood /78. General - pleasant, in no acute distress. HEENT - atraumatic, normocephalic. Conjunctivae clear. Heart - regular. Lungs - clear. Abdomen - soft, much less distended, nontender. DISCHARGE FOLLOWUP: He will see Dr. Graham within the next few days to make sure that his blood pressure is coming down on the metoprolol or make alterations as needed. He will be contacted by Dr. Batres about time for outpatient surgery. DISCHARGE MEDICATIONS: Unchanged from my dictation yesterday. ELECTRONICALLY SIGNED Mirela Antunez MD [facility] cc: /JABBI Job ID: [id number] /lb Document ID: [id number] A: 09/27/2011 15:17/valencia(document type) OX MAN Mirela Antunez MD - 09/25/2011 10:48 AM CST [employer]X MAN documented in this encounter Discharge Instructions Discharge InstructionsAline Ochoa RN - 09/24/2011 9:44 AM CST Images from the original note were not included. Patient Discharge Instructions Reason for Visit: ACUTE PANCREATITIS [577.0] DIABETES MELLITUS TYPE II [250.00] RENAL INSUFFICIENCY [593.9] ELEVATED TROPONIN [790.6] pancreatitis, elevated troponin Pancreatitis Medications: ?? Keep a written list of the medicines you take, the amounts, and when and why you take them. Bringthe list of your medications or the pill bottles when you see your caregivers. Learn why you take each medicine. Ask your caregiver for information about your medicine. Do not use any medicines, ohar-exa-ngadhld drugs, vitamins, herbs, or food supplements without [...] do not drive or use heavy equipment. Influenza Vaccine (seasonal only): Does not meet criteria Pneumonia Vaccine (year round): Given before hospital stay. TOBACCO CESSATION COUNSELING If you smoke, please quit. Avoid exposure to second hand smoke. Smoking cessation support is available at [facility] Tobacco Cessation Program- 926-8817 or [employer] (5-919-196-PLAN or CanoP). Alien Shine does not smoke. We are concerned about your emotional health after discharge. If you are feeling alone, sad, or hopeless, a 24 hour suicide crisis and referral hotline is available at [employer] (0054) or toll-free at Instructions for Care: Follow-up appointment and/or referrals Card Given: Yes Keep all appointments. Write down any questions you may have. This way you will remember to ask these questions during your next visit. Valuables in Safe: No Home Medications Returned to Patient: Not applicable Vitals Signs Last Vitals: BP: 138/78 mmHg Pulse: 77 Resp: 16 Temp: 37.5 ??C (99.5 ??F) SpO2: 93 % Weight: 117.981 kg (260 lb 1.6 oz) Supplies/equipment given or has at home: Patient/Family has no further questions regarding discharge instructions at this time: No The clinic will call with the time for your surgery. CHOLECYSTITIS [presumed] Your doctor suspects that your abdominal pain is due to an inflammation and possible infection in the gallbladder. The gallbladder is a small sac under the liver, which stores and releases bile. Bile is a fluid that aids in the digestion of fat. A gallstone may form in this sac and block the passage of bile fluid. This can lead to mild to severe abdominal pain, fever, nausea and vomiting. To be more certain of the diagnosis, you may need to have an ultrasound, CT-scan or other special test. HOME CARE: 1. Rest in bed and follow a clear liquid diet until the pain, nausea and vomiting go away. Antibiotics and other medicine may be prescribed. Take this exactly as directed. 2. You may use ibuprofen (Motrin, Advil) or naproxen (Naprosyn, Aleve) to control pain, unless another medicine was prescribed. [NOTE: If you have chronic kidney disease or ever had a stomach ulcer or GI bleeding, talk with your doctor before using these medicines.] 3. Fat in your diet makes the gallbladder contract and may cause increased pain. Therefore, avoid fat in your diet over the next two days and follow a low-fat diet thereafter. If you are overweight, a low fat diet will help you lose weight. FOLLOW UP an infection in the gallbladder is a serious problem and must be watched carefully. Keep any appointments made for you to have further testing. See your doctor for another exam in the next 1-2 days, or as directed by our staff. Once cholecystitis has occurred, removal of the gallbladder is usually required to prevent a recurrence. You can discuss this at your follow-up visit. [NOTE: If you had an X-ray, ultrasound, CT scan or EKG (cardiogram), it will be reviewed by a radiologist. You will be notified of any new findings that may affect your care.] RETURN PROMPTLY or contact your doctor if any of the following occur: ?? Repeated vomiting ?? Swelling of the abdomen ?? Pain lasts over 6 hours ?? Fever over 100.0??F (37.8??C) or chills ?? Weakness, dizziness or fainting ?? Dark urine or light colored stools ?? Yellow color of the skin or eyes ?? Chest, arm, back, neck or jaw pain ?? [id number] [employer], [address] [place] [address], [place] [address]. All rights reserved. This information is not intended as a substitute for professional medical care. Always follow your healthcare professional's instructions. OX MAN AttachmentsThe following attachments cannot be sent through Care Everywhere. Medication Advisor 2010.3: Metoprolol Tartrate, Oral/Injectiondocumented in this encounter Medications at Time of [...] metoprolol tartrate Take 1 Tab by mouth 60 Tab 0 011 10/07/2011 (LOPRESSOR) 25 MG tablet two times a day. documented in this encounter Discharge Disposition Disposition Code Departure Means Destination Home and/or Self Care documented in this encounter Progress Notes Aline Ochoa RN - 09/24/2011 2:51 PM CST Pt eager to go home. He denies any pain or nausea at this time and is tolerating his diet. Instructed per discharge instruction sheet. was present for all instruction. Comprehension expressed and compliance is expected. Pt left ambulatory accompanied by his to go home at 1000. Сергей Cruz MD - 09/24/2011 9:28 AM CST [facility] Patient Name: YASMANIALINE DEUTSCH Date of Service: 09/24/2011 : 1950 Age: 61Y Sex: M DC Site MRN: Patient Loc/Room #: [id number]/3006 Provider: Сергей Bartes MD, FACS, General Surgery PROGRESS NOTE SITE: [facility] SUBJECTIVE: The patient is feeling better this morning. He had a bowel movement and that helped the his fullness feeling. OBJECTIVE: He has stable vital signs, temperature 36.6. Chest was clear. Abdomen was soft. Legs are without calf tenderness. ASSESSMENT: Apparent resolving biliary pancreatitis secondary to gallbladder sludge. PLAN: He is comfortable to proceed with the surgery. I discussed the risks and benefits of cholecystectomy with he and his . We had him sign the permit and I am going to be checking in the office later this morning and schedule that for either Friday or of this week depending on time on the schedule. His questions were answered and they are ready to proceed. I did also discuss this briefly with Dr. Payne and I believe they are going to let him go home today and then we will readmit appropriately once we set the schedule time. Thank you for allowing me to help with Mr. Adame care. ELECTRONICALLY SIGNED Сергей Batres MD, FACS [facility] General Surgery cc: MD Blair Guerrero MD Mark W. Gray, MD /JJD Job ID: [id number] /lb Document ID: [id number] OX MAN Mirela Antunez MD - 09/24/2011 9:14 AM CST [facility] DISREGARD-INCORRECT DOCUMENT TYPE. SEE DISCHARGE SUMMARY DOCUMENT. Patient Name: ALINE SHINE Date of Service: 09/24/2011 : 1950 Age: 61Y Sex: M DC Site MRN: Patient Loc/Room #: OHKC0HFI/3006 Provider: Mirela Antunez MD, Family Practice PROGRESS NOTE SITE: [facility] DATE OF ADMISSION: September 21, 2011 DATE OF DISCHARGE: September 24, 2011 ELECTRONICALLY SIGNED Mirela Antunez MD [facility] cc: /JKM Job ID: [id number] /lb Document ID: [id number] OX MAN Blair Hollingsworth MD - 09/24/2011 8:34 AM CST [facility] Patient Name: ALINE SHINE Date of Service: 09/23/2011 : 1950 Age: 61Y Sex: M DC Site MRN: Patient Loc/Room #: [id number]/3006 Provider: Blair Hollingsworth MD, Gastroenterology PROGRESS NOTE SITE: [facility] HISTORY: The patient is a 61-year-old white male seen in followup today. Primary care patient of Dr Ramachandran seen in consultation my colleague, Dr Blair Torres over the weekend. The patient relates that he was feeling fine this day until he tried to eat some of his liquid Jell-O lunch. He relates that the pain came right back. He describes it as epigastric in location. No new other symptoms or signs are noted. OBJECTIVE: Vital signs are stable. Afebrile condition is noted. General - the patient is an obese white male, resting comfortably at this time. Ultrasound of the gallbladder completed today documents sludge debris within the gallbladder lumen. Small amount of fluid around the gallbladder is noted. Common bile duct is documented 6 mm in diameter. Laboratory studies document normal liver enzyme profile today. Lipase determination was down to 115 International Units per liter. ASSESSMENT: Pancreatitis event that I believe is most consistent with microlithiasis resulting in the clinical illness. I believe it is much more likely that pathology for his pancreatitis event is secondary to his gallbladder disease than is the newly started lisinopril therapy for hypertension. My re commendations to the patient are to strongly consider a cholecystectomy during this hospitalization.General surgical consultation is being requested with Dr Batres. ELECTRONICALLY SIGNED Blair Hollingsworth MD [facility] Gastroenterology cc: Сергей Batres MD, FACS /JCB Job ID: [id number] /tlrts Document ID: [id number] OX MAN Jovanni Nevarez RN - 09/24/2011 6:21 AM CST Patient reported that he had a large dark brown/black BM at 0600, informed to put his call light on next time he went. BM was loose and dark green. He stated that his abdomin feels much better, but isstill rumbling Jovanni Knowles RN - 09/24/2011 5:28 AM CST Patient reported that he was having 7/10 abdominal pain the he said was from gas. Stated that he hadbeen up to the bathroom multiple times during the night passing a lot of gas which relieved his abdominal pain for a short period of time. Stated his pain was on and off during the night. Denied the need for any pain meds. Ariadne Keita - 09/23/2011 10:27 PM CST Alert, oriented, pleasant. Abdomen is distended somewhat firm and complaining if feeling bloated, and sharp pain located in abdomen, LUQ. Pts own supply of Lortab given with relief obtained. Still unable to have substantial bowel movement but did have one small formed brown stool after Mag citrate, colace, Milk of magnesia and dulcolax suppository was repeated. No appetite and sipping on clear liquids. Has been up walking in [place]. Voided x2 in bathroom and did not leave urine for measuring. Needs a cholecyctectomy but unable to be scheduled until later in week possibly Friday or . Information regarding procedure was printed and provided. Will continue to monitor pain and bowel status.Blood pressure 161/81, pulse 78, temperature 37.2 ??C (99 ??F), temperature source Oral, resp. rate 18, height 1.778 m (5' 10), weight 117.981 kg (260 lb 1.6 oz), SpO2 94.00%. OX MAN Mirela Antunez MD - 09/23/2011 6:46 PM CST [facility] Patient Name: ALINE SHINE Date of Service: 09/23/2011 : 1950 Age: 61Y Sex: M DC Site MRN: Patient Loc/Room #: [id number]/3006 Provider: Mirela Antunez MD, Family Practice PROGRESS NOTE SITE: [facility] ADDENDUM: Dr. Hollingsworth has seen the patient and I certainly appreciate his input. It is his interpretation of the right upper quadrant ultrasound that was ordered that this probably is more biliary pancreatitis, andhe has recommended surgical consultation and cholecystectomy. Obviously, in light of this development, discharge will be canceled. ELECTRONICALLY SIGNED Mirela Antunez MD [facility] cc: /NICKO Job ID: [id number] /la Document ID: [id number] OX MAN Blair Hollingsworth MD - 09/23/2011 1:08 PM CST This note has been dictated. OX MAN Mirlande Cartwright RN - 09/23/2011 12:26 PM CST Pt is alert and oriented x 4, in no distress.C/O lower abdominal pain and being bloated, he states his abd is bigger than it usually is.He has not passed gas yet this am and has not had a BM since Friday, he typically has a BM daily. Abdominal ultra sound performed this am, with no acute findings found per Dr Chao., He has been given a Biscacodyl supp and po Miralax.Pt is taking clear liquids although he does not have an appetite. No result from the supp and wade lax at 1500 hrs. Urine is christopher. Voided 300 mls for the shift.Instructed pt need to measure his intake and output. Pt was seen by Dr Hollingsworth after the ultrasound , who has advised pt that his gallbladder needs to be removed . Surgery has been scheduled for tomorrow. Explained pre and post op procedures to pt and his .Printed information has been supplied to thept also. Pt is up ambulating in the [place] x 2 . Lortab given x 2 with good efect, Temp= 99.5f @ 1200 hrs. Mirela Troncoso MD - 09/23/2011 11:53 AM CST [facility] Patient Name: ALINE SHINE Date of Service: 09/23/2011 : 1950 Age: 61Y Sex: M DC Site MRN: Patient Loc/Room #: [id number]/3006 Provider: Mirela Antunez MD, Family Practice PROGRESS NOTE SITE: [facility] Possible discharge summary DATE OF ADMISSION: September 21, 2011 DATE OF DISCHARGE: Potentially September 23, 2011 ADMITTING DIAGNOSIS: Pancreatitis. DISCHARGE DIAGNOSIS: Pancreatitis, he also had elevated troponins which presumably were just a leak secondary to some mild renal insufficiency. SIGNIFICANT PROCEDURES AND CONSULTATIONS: He was seen by both GI and cardiology. Also had a right upper quadrant ultrasound. HISTORY OF PRESENT ILLNESS: Mr. Shine is a 61-year-old gentleman who was having about a weeks worthof exertional chest pain. He saw his primary doctor, Dr. Graham, who ordered a cardiac exam and he ended up having a Cardiolite stress test on 09/19/2011 which was unremarkable. Pain persisted, so his primary physician ordered a CT scan of the abdomen and pelvis which showed some inflammation of the pancreas consistent with pancreatitis. He was being managed at home with Vicodin 10/325 which he was taking every 6 hours and it did not seem to be improving things so he was admitted for further work up and treatment of pancreatitis. HOSPITAL COURSE: 1. For his pancreatitis, etiology of this remains unclear, but interestingly seems to correlate withwhen his primary physician started him on lisinopril. Dr. Torres saw him over the weekend andrecommended that this be discontinued indefinitely as there are some reports of this being associated in the literature. Since discontinuing the lisinopril he has continued to improve to the point where his amylase and lipase are normal today and he has no further upper abdominal pain. He has developed a little bit of an ileus from narcotic use for his pain and is somewhat constipated so he is havingsome discomfort with that. Plan is today to try to get his bowels moving and if we are able to do so discharge him to home later today. I will note that he did also have a right upper quadrant ultrasound today that showed some sludge and possibly a tiny amount of pericholecystic fluid. We will leave it to his primary physician whether they want to recommend that he have a cholecystectomy although I think his clinical picture really would suggest this is not related which is what we discussed today. 2. Elevated troponin - he did have a mildly elevated troponin on admission of 0.122; therefore, the admitting physician did order a cardiology consult. He was seen by Dr. Yusuf on the who reallyfeels this was an incidental finding, possibly related to his acute renal insufficiency and recommended no further work up and treatment, especially in light of his recent negative Cardiolite exam. 3. Mild renal insufficiency - his admission creatinine was 1.34 and has come down to 1.19 which is about his baseline. 4. Hypertension - he was admitted on lisinopril and this was discontinued because of the possible association with his acute pancreatitis. blood pressures are remaining high at times for a diabetic, running in the 119 to 150s/70s to 80s. I do think an ARB could be cautiously considered in the future, but would defer that to his primary physician after he has continued to defervesce in terms of pancreatitis. For the short term may want to manage with another agent. Patient is very reluctant to start anything in that category understandably. 5. Diabetes - metformin was held because of the CT scan. Creatinine has normalized and so that will be restarted. CONDITION ON DISCHARGE: This morning his temperature is 97.8, pulse 74, and respirations 18. Blood pressure earlier was 122/77, last check 151/81. Sats are 96% on 2 liters which we could certainly remove at this point. General - he is resting comfortably in bed. Heart - regular in rate and rhythm. Lungs - clear. Abdomen -distended and very gassy. He has diminished bowel sounds and tenderness is really more on the lower abdomen. No guarding, rebound, or rigidity. Amylase is 33, lipase is 115. DISCHARGE FOLLOW UP: I do think he should see Dr. Graham two to three days after discharge which hopefully will be today if we are able to get his bowels moving. DISCHARGE MEDICATIONS: 1. Hydrocodone-acetaminophen 10/325 as he had been taking prior to admission and has been controlling his pain at this point. 2. Baby aspirin daily. 3. Metformin 1000 b.i.d. 4. Metoprolol 25 mg b.i.d. which is a new medication for his blood pressure. 5. He will discontinue his lisinopril 10 mg. 6. Continue his Cialis p.r.n. 7. Colace which I do think he should use twice daily while he is using his narcotics. Certainly can add a or MiraLax with him as discussed today. 8. Multivitamin. 9. Fish oil daily. 10. Omeprazole 20 daily. 11. Vitamin C as he had been taking. DISCHARGE FOLLOWUP: He will see Dr. Graham within two to three days. Total time of this discharge was greater than 30 minutes. ELECTRONICALLY SIGNED Mirela Antunez MD [facility] cc: /JABBI Job ID: [id number] /lb Document ID: [id number] OX MAN Malena Thacker - 09/23/2011 11:41 AM CST Pastoral visit and prayer for comfort and healing. OX MAN Сергей Ramachandran - 09/23/2011 10:30 AM CST [employer]X MAN Sydnee Yusuf MD - 09/23/2011 10:11 AM CST [facility] Patient Name: ALINE SHINE Date of Service: 09/23/2011 : 1950 Age: 61Y Sex: M DC Site MRN: Patient Loc/Room #: [id number]/3006 Provider: Sydnee Yusuf MD, Cardiology PROGRESS NOTE SITE: [facility] DATE: 09/23/2011 SUBJECTIVE: Mr. Shine is a 61-year-old gentleman who presented to the hospital with upper abdominallower chest discomfort and was found to have pancreatitis. The patients troponin remains negative and he appears comfortable this morning except for his abdominal discomfort. Patient does not appear tohave significant heart issue that ongoing. Patient underwent an echocardiogram this morning which demonstrated overall preserved left ventricular function, no serious valvular heart disease and as such, I have no further recommendations from the heart standpoint. Thank you for allowing me to see Mr. Shine over the weekend. Please let me know if I can be of further assistance. ELECTRONICALLY SIGNED Sydnee Yusuf MD [facility] Cardiology cc: /MARION Job ID: [id number] / Document ID: [id number] OX MAN Joel Stewart - 09/23/2011 6:14 AM CST Pt. VSS and A/Ox3. Denies palpitations, headache, N/V. In the beginning of shift and at 0420 Pt. Had sweaty , denies chill and Accu check 125. BP: 119/74 mmHg, Temp: 37.1 ??C (98.7 ??F) Oral, Pulse: 74 , Resp: 20 , SpO2: 95 % Nurse gave a baht, changed New Cloth and Bed sheet, pillow case. Pt. Told that he felt better. NPO after midnight for US abdominal in the morning. 0.45% NSS 125 ml/hr is infusing. At 0047 Pt. C/o epigastric Area pain 4/10, Lortab 15 ml given with relief almost 4 hrs. At 0420 Pt. C/o epigastric area pain 4/10, Vicodin 1 tab. Po. With relief. BP: 122/77 mmHg, Temp: 36.8 ??C (98.2 ??F) Oral, Pulse: 70 , Resp: 20 , SpO2: 93 % Pt. Up to restroom independently. OX MAN Carmel Ferguson - 09/22/2011 10:37 PM CST When database report writer into pt's room to check on pt, pt found to be diaphoretic. Pt denying pain or discomfort, I'm just really sweaty. Temp 99.5f, O2 sats 87% on RA. Cool washcloth applied to pt's forehead, 2L O2 per NC applied, pt put on continuous pulse oximetry. Sats up to 94%. Continue to monitor. OX MAN Jenniffer Michael, RN - 09/22/2011 2:35 PM CST Pt has complained of epigastic area pain with radiation to the left chest. He describes it as sharp and has rated it up to 5-6. He states that morphine, and dilaudid have really not helped and has wanted to stay with the vicodin. See orders for details. Pt's pain has been eased by the pain med, but has not gone away. He has intermittent nausea with only fair intake of clear liquid diet. His temp max was 100.2 and pt says he doesn't have chills, but does get sweaty at times. Pt has been seen by cardiology and is waiting for GI consult. Joel Mercado - 09/22/2011 5:30 AM CST Pt. VSS and A/Ox3. At tele ,Denies palpitations, diaphoresis, headache, N/V. Pt. C/o Lt. Chest close to rib cage pain 02/19, pain med given with relief, see DEC. BP: 144/81 mmHg, Temp: 36.8 ??C (98.2 ??F) Oral, Pulse: 80 , Resp: 20 , SpO2: 95 % Pt. Up to restroom independently. Gabrielle Ross - 09/22/2011 1:47 AM CST Pt stated that he does not use a cpap/bipap at home. He said years ago that he had a study but his sleep apnea was mild and that he was not able to tolerate the mask. Cpap/bipap assessment was canceled OX MAN documented in this encounter H&P Notes Sydnee Short MD - 09/22/2011 9:29 AM CST [facility] Patient Name: ALINE SHINE Date of Service: 09/22/2011 : 1950 Age: 61Y Sex: M DC Site MRN: Patient Loc/Room #: [id number] Provider: Sydnee Short MD, Family Practice HISTORY AND PHYSICAL SITE: [facility] SUBJECTIVE: Mr. Shine was admitted with a diagnosis of pancreatitis. He had been seen by Dr. Graham earlier in the week for an exam and had reported some exertional chest pain. As a result of that, Dr. Grahma ordered a cardiac evaluation. The night before the evaluation on Friday the patient states he had big meal and then subsequently developed epigastric pain that continued through the night. He did do the stress test and that turned out to be okay with no evidence of ischemic heart disease. However, the abdominal pain continued and Dr. Graham ordered a CT of the abdomen and pelvis on Friday, which showed inflammation around the pancreas consistent with a pancreatitis. He had been managing that at home with Vicodin 10/325 taking 1 every 6 hours. However, he said it did not last long enough and he was having breakthrough pain after about 3 hours. His blood work showed an elevated lipase of 464. That was up from 94 on 09/20/2011. His troponin was also slightly elevated at 0.119 and a recheck this morning was 0.122. Because of concern about his elevated troponin and his diagnosis of pancreatitis, he was admitted during the night by Dr. Biggs. Since then, he has been unable to get adequate sustained pain relief from the Vicodin available through the hospital, which has a lower dose of hydrocodone in at. The Dilaudid does not seem to be touching it either. He describes the pain as fairly constant in the epigastrium but he is not having any chest pain. He believes he has had some fever with this up to 101. He said he has not had any urge to have a bowel movement for the last coupleof days. He has not had any nausea or vomiting, but has had marked diminution of his appetite. He isable to take liquids. He denies any significant alcohol intake, never had any gallbladder disease. He has not had any prior episodes of pancreatitis. He does have a history of type 2 diabetes and hypertension. He does take metformin for his diabetes which is currently on hold because of his recent CT scan. EKG shows normal sinus rhythm. Chest x-ray done September 20 showed a shallow inspiration, otherwise was unremarkable. OBJECTIVE: He is alert and appropriate, and appears in no distress at this time. His vital signs showed a blood pressure of 144/81, pulse of 80, respirations 20, O2 sats of 95% on room air. His temp was 98.2 this morning. His abdomen is soft. He had some tenderness to palpation in the epigastrium but it is not severe. He rates the pain at about a 4 or 5. ASSESSMENT: 1. Acute pancreatitis. 2. Elevated troponin. 3. Type 2 diabetes. 4. Hypertension. 5. Slightly low platelet count. PLAN: Patient has consults ordered for Cardiology and GI medicine today. Will keep him on his clear liquid diet for now. Will allow him to take his own Vicodin 10/325, as it has been more effective forhim. We will get a creatinine this afternoon and if that is stable, will restart his metformin at that time. ELECTRONICALLY SIGNED Sydnee Short MD [facility] cc: /MIKE Job ID: [id number] /clsts Document ID: [id number] OX MAN Damion Biggs MD - 09/22/2011 1:30 AM CST [facility] Patient Name: Aline Shine Admission Date: 09/22/2011 Date: 1950 Patient Age: [age] year old Patient Location: Provider: Damion Biggs MD HISTORY AND PHYSICAL [facility] PRIMARY PHYSICIAN: Richardson Graham MD CHIEF COMPLAINT: Epigastric Pain HISTORY OF PRESENT ILLNESS: Aline Shine is 61 year old male who is admitted with acute pancreatitis. He has a history of type2 diabetes controlled on Metformin 1000-mg twice daily. He was in for his physical and mentioned some heartburn. He was started on Omeprazole 20-mg daily and Lisinopril 10-mg daily, and Vicodin for pain. He had a cardiolite stress test on that is reported as normal, but he had poor exercisetolerance. He had a lipid profile on Aug 23 showing total cholesterol 198, HDL 36, LDL 134, and Trigycerides 141. He elected diet management for that. With his ongoing pain and his normal stress test he then had a lipase level yesterday of 94. A CT scan showed acute pancreatitis and a normal gall bladder. Today his pain was worse and so he came to the ER and had a Lipase level of 464. His EKG shows flipped T waves in leads II and III, and small Q waves in II, III, and aVF. His troponin is elevated at 0.119, so he is admitted for further evaluation and treatment of pancreatitis and to monitor the troponin level. REVIEW OF SYSTEMS: 13 point review of systems is otherwise negative, except as noted in the history of present illness. PAST MEDICAL HISTORY: Past Medical History Diagnosis Date ??? Diabetes mellitus type II ??? Obstructive sleep apnea ??? Hypertension ??? Obesity ??? Pancreatitis, acute 09/22/2011 ??? Eczema Hands and elbows Past Surgical History Procedure Date ??? Knee arthroscopy Both knees; ACL repair left; Meniscus on the right ALLERGIES: Penicillins MEDICATIONS: Prescriptions prior to admission Medication Sig Dispense Refill ??? HYDROcodone-acetaminophen (NORCO) 10-325 MG per tablet Take 1 Tab by mouth every six hours as needed. Acetaminophen should be limited to 4000 mg per day. ??? omeprazole magnesium delayed release (PRILOSEC OTC) 20 MG tablet Take 1 Tab by mouth one time a day. Tablet should be swallowed whole; do not crush or chew. 90 Tab 3 ??? docusate sodium (COLACE) 50 MG capsule 1-2 tablet PO daily ??? lisinopril (PRINIVIL, ZESTRIL) 10 MG tablet Take 1 Tab by mouth two times a day. ??? betamethasone dipropionate 0.05 % cream Apply topically as needed for Other. Apply sparingly. ??? Zinc 50 MG TABS Take 1 Tab by mouth one time a day. 30 Tab ??? ascorbic acid (VITAMIN C) 500 MG tablet Take 1 Tab by mouth as needed (cold sysmptoms). ??? omega-3 fatty acid (FISH OIL) 1000 MG capsule Take 1 Cap by mouth one time a day. ??? metFORMIN (GLUCOPHAGE) 1000 MG tablet TAKE ONE TABLET BY MOUTH TWICE DAILY 180 Tab 3 ??? CIALIS 20 MG tablet 1 tablet, OR[place], DA[place], PRN [id number], 02/08/10 8:24:43 1.000 Tab 0 ??? CHILDRENS ASPIRIN 81 MG chewable tablet 81 mg, ORAL, DAILY, Refills: 0, 02/06/09 18:34:01, Substitution Permitted, current med (Hx) 81.000 0 ??? 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 . No children Family History Problem Relation Age of Onset ??? Diabetes ??? Neuro Disease Father Parkinson's ??? Cancer Father Prostate ??? Cancer Mother Leukemia ??? Cancer Brother Prostate ??? Cardiovascular Disease Brother Dysrrhythmia ??? GI Disease Sister IBS ??? Musculo-skeletal Disease Sister Osteoporosis Family Status Relation Status Age at Mother 85 Father 85 Sister Alive Sister Alive Brother Alive Brother Alive PHYSICAL EXAMINATION: VITAL SIGNS: BP 150/76 Pulse 90 Temp(Src) 37.7 ??C (99.9 ??F) (Oral) Resp 16 Ht 1.778 m (5' 10) Wt 117.935 kg (260 lb) BMI 37.31 kg/m2 SpO2 93% GENERAL: No acute distress. Morbidly obese. HEAD: Normocephalic atraumatic without sinus tenderness. EYES: No conjunctival inflammation. ENT: Ears normal. Nose clear. Throat and pharynx normal. NECK: Supple. No thyromegaly, JVD, bruits, or masses in the neck. CHEST: No chest wall tenderness or masses. LUNGS: Clear without wheezing or rales. Good air movement. HEART: S1 and S2 normal, no murmurs, clicks, gallops or rubs. Regular rate and rhythm. No edema or JVD. ABDOMEN: The abdomen is distended and tympanitic, but soft without tenderness, guarding, mass, rebound or hepatosplenomegaly. Bowel sounds are normal. No CVA tenderness or inguinal adenopathy noted. EXTREMITIES: Moves extremities without pain. Peripheral pulses normal. No tenderness in the calves or thighs. Joel's sign is negative. SKIN: No unusual rashes or suspicious skin lesions noted. Nails appear normal. NEUROLOGICAL: Cranial nerves are normal. PERRLA. EOM's intact. Normal deep tendon reflexes. LYMPHATIC: No lymphadenopathy in the anterior or posterior neck, supraclavicular, axillary or inguinal areas. MENTAL STATUS: Alert and oriented to time, person and place. Normal thought content, speech, affect,and mood. LABORATORY DATA: Recent Results (from the past 24 hour(s)) HEMOGRAM/DIFF Component Value Range WBC 11.6 (*) 3.4 - 10.7 (109/L) RBC 4.74 4.20 - 5.90 (1012/L) HGB 13.9 13.0 - 17.0 (g/dL) HCT 40.9 37.5 - 51.0 (%) MCV 86.2 82.0 - 99.0 (fL) MCH 29.3 27.0 - 34.0 (pg) MCHC 34.0 32.0 - 35.7 (g/dL) RDW 13.5 11.0 - 15.0 (%) PLT 139 (*) 150 - 400 (109/L) COMPR MET PANEL Component Value Range SODIUM 138 136 - 143 (mEq/L) POTASSIUM 4.8 3.6 - 5.0 (mEq/L) CHLORIDE 101 98 - 107 (mEq/L) CO2 25 22 - 31 (mEq/L) GLUCOSE 191 (*) 70 - 99 (mg/dL) BUN 15 7 - 21 (mg/dL) CREATININE 1.34 (*) 0.66 - 1.25 (mg/dL) GFR CALC 54 (*) CALCIUM 9.1 8.5 - 10.6 (mg/dL) PROTEIN, TOTAL 7.4 6.3 - 8.2 (gm/dL) ALBUMIN 4.4 3.5 - 5.0 (gm/dL) ALK PHOSPHATASE 70 38 - 126 (IU/L) ALT(SGPT) 23 7 - 56 (IU/L) AST(SGOT) 17 15 - 59 (IU/L) TOTAL BILIRUBIN 1.2 0.0 - 1.2 (mg/dL) ANION GAP 17 AMYLASE Component Value Range AMYLASE 75 30 - 110 (IU/L) LIPASE Component Value Range LIPASE 464 (*) 23 - 203 (IU/L) DIFFERENTIAL Component Value Range NEUTROPHIL % 87.2 (*) 40.0 - 80.0 (%) LYMPHOCYTE % 4.6 (*) 10.0 - 44.0 (%) MONOCYTE % 7.7 3.0 - 15.0 (%) EOSINOPHIL % 0.3 0.0 - 8.0 (%) BASOPHIL % 0.2 0.0 - 3.0 (%) NEUTROPHIL ABS 10.1 (*) 1.7 - 8.5 (109/L) LYMPHOCYTE ABS 0.5 (*) 0.9 - 3.6 (109/L) MONOCYTE ABS 0.9 0.3 - 1.0 (109/L) EOSINOPHIL ABS 0.0 0.0 - 0.6 (109/L) BASOPHIL ABS 0.0 0.0 - 0.3 (109/L) TROPONIN I Component Value Range TROPONIN I 0.119 (*) 0.000 - 0.100 (ng/mL) ASSESSMENT AND PLAN: Patient Active Hospital Problem List: Acute pancreatitis (09/22/2011) Assessment: Pain is controlled on Narcotic pain reliever. Plan: Continue narcotic pain relief. Start clear liquids and continue Omeprazole at 40-mg po bid. GI consult. Repeat Lipase in the morning. Diabetes mellitus type II (09/22/2011) Assessment: Stable Plan: Hold Metformin and start on correction dosing of Novolog. Renal insufficiency (09/22/2011) Assessment: Creatinine was 1.2 last month. Lisinopril was just started. Plan: Hold Lisinopril and monitor renal functions. Elevated troponin (09/22/2011) Assessment: He had a normal cardiolite, but unsure why the troponin is elevated. Plan: Repeat serial troponins. If they are stable then we may attribute the elevation to acute renal insufficiency. He does have inferior changes on EKG, so we will repeat the EKG in the morning and consult cardiology. Time spent in evaluation, review of data, discussion with health care providers, discussion with patient and family, documentation and coordination of care: 50 minutes. Damion Biggs MD CC: Richardson Graham MD OX MAN documented in this encounter Procedure Notes Mirela Antunez MD - 09/25/2011 10:48 AM CST OX MAN Leticia Rasheed MD - 09/23/2011 9:07 AM CSTAssociated Order(s): ECHOCARDIOGRAM TRANSTHORACIC COMPLETE [facility] Patient Name: ALINE SHINE Date of Service: 09/23/2011 : 1950 Age: 61Y Sex: M DC Site MRN: Patient Loc/Room #: [id number]/3006 Provider: Leticia Rasheed MD, Cardiology ECHOCARDIOGRAM AND DOPPLER REPORT SITE: [facility] Hand Picker: LETICIA RASHEED MD Tech: MO Ordered by: SYDNEE YUSUF Primary Care Phys Name: Richardson Graham MD Contrast: Reason for Test: Coronary artery disease. Transthoracic echocardiogram with color flow and Doppler. Ht 70 Wt 260 BSA 2.3 HR 71 BP 122/77 Rhythm NS M-Mode/2D Diastolic function 4.3 Asc Ao DT (199 + or - 32 ms): 150.4 4.1 Aorta (<3.7cm) E Jena (0.86 + or - 0.16 m/s): 1.0 4.1 LA (<4.0cm) A Jean (0.56 + or - 0.13 m/s): 0.8 RV (<3.0cm) E-A Ratio (1.5 + or - 0.5): 1.3 3.7 LVd (<5.6cm) Ma: 2.1 LVs (<3.5cm) PVa: 1.2 IVSd (<1.2cm) PV S/D: 1.5 IVSs Atrial Rev.: 0.3 m/s 1.1 LVPWd (<1.2cm) E/E' : 11.5 1.2 LVPWs LA vol Index: 37.1 ml/m2 2.5 LVOT cm RA Area: cm2 M-Mode EF 54% Bi-Plane EF TV 1.5 IVC (1.2 - 2.3 cm) Peak Jean: 2.2 m/s Max P mmHg Est RAP: 10 mmHg PAs: 29 mmHg AoV MV Peak Jean: 1.1 m/s Mean PG: mmHg Max PG: mmHg MVA (VTI): cm2 Mean PG: mmHg MVA (P1/2T): cm2 I,D EDWIGE: cm2 PISA ERO: cm2 V,D EDWIGE: cm2 RV: ml Dimen.Index: MR VTI: m AoV VTI: 21.7 cm MR Peak Jean: m/s LVOT VTI: 20.0 cm Radius: cm Peak LVOT V: 1.0 m/s Alias Jean: m/s AI P1/2t: msec MV Annul: cm DS: m/s MV VTI: m SV: ml SV: ml PV Peak Jean: 0.8 m/s WI end winkler: 3.4 mmHg INTERPRETATION: Left ventricular size and systolic size were normal with an estimated ejection fraction of 55% to 60%. Left ventricular wall thickness was increased, consistent with left ventricular hypertrophy. No wall motion abnormalities were demonstrated. There was mild left atrial enlargement. The right atrium and right ventricle were of normal dimension. The aortic valve leaflets were scleroticwithout stenosis. There was mitral valve annular calcification and mild mitral regurgitation. Trivial aortic, trivial pulmonary, and mild tricuspid regurgitation were identified. A peak tricuspid regurgitant velocity was measured to allow calculation pulmonary artery systolic pressure of 29 mmHg. No intracardiac masses, thrombi, or effusions were demonstrated. There was mild aortic root enlargement with the proximal ascending aorta measuring 43 mm. CONCLUSIONS: 1. Normal left ventricular size and systolic function, with estimated ejection fraction of 55% to 60%. 2. Akjztzrqwx-zs-[id number] left ventricular hypertrophy. 3. Mild left atrial enlargement. 4. Mitral valve annular calcification with mild regurgitation. 5. Aortic valve sclerosis with trivial aortic regurgitation. 6. Trivial pulmonary regurgitation. 7. Mild tricuspid regurgitation with the calculated pulmonary artery systolic pressure measured at 29 mmHg. 8. Mild aortic root enlargement; the proximal ascending aorta measures 43 mm. ELECTRONICALLY SIGNED Leticia Rasheed MD [facility] Cardiology cc: MD Richardson Andrade MD /MRR Job ID: [id number] /ak Document ID: [id number] A: 09/23/2011 11:05/sak (txt) OX MAN documented in this encounter Consult Notes Сергей Batres MD - 09/23/2011 9:01 PM CST [facility] Patient Name: ALINE SHINE Date of Service: 09/23/2011 : 1950 Age: 61Y Sex: M DC Site MRN: Patient Loc/Room #: [id number]/3006 Provider: Сергей Batres MD, FACS, General Surgery CONSULTATION SITE: [facility] REQUESTED BY: REQUESTING PHYSICIAN: Blair Hollingsworth MD, Sydnee Short MD HISTORY OF PRESENT ILLNESS: This patient is a 61-year-old gentleman who starting about lastweek he needed to be n.p.o. for a study and ate a fair amount, I believe it was Friday, did not feel very well through the night, getting a little bit better, but mentioned that so they evaluated him and did the heart evaluation and stress test, and that was normal, but continued to have the GI distress and labs noted a pancreatitis. I am asked to see him now for possible biliary pancreatitis secondary to gallbladder sludge. He is still having some mild right upper quadrant pain. Has not had a bowel movement since last Friday. His GI system review is positive for reflux but negative for ulcerdisease and prior to this week, no history of hepatitis, pancreatitis, jaundice, acholic stools, or dark urine. No previous abdominal surgeries. ALLERGIES: PENICILLIN. MEDICATIONS: 1. Aspirin 81 mg a day. 2. Metformin 1,000 mg b.i.d. 3. Metoprolol 25 mg 2 times a day. 4. Prilosec 40 mg a day. 5. MiraLAX p.r.n. PAST MEDICAL HISTORY: 1. Endogenous obesity. 2. Diabetes type 2. 3. Hypertension. 4. GERD. SOCIAL AND FAMILY HISTORY: Noncontributory. He is present with his . REVIEW OF SYSTEMS: Other than the history of present illness, cardiac -negative for any known ND. AsI said he had a recent stress test that he said was normal. Respiratory - positive for some mild dyspnea on exertion lately but no productive cough. He is a nonsmoker. GI - as noted above. - negative for dysuria or discharge. Metabolic - positive for the endogenous obesity. Has diabetes type 2. Negative for thyroid deficiency. The rest of his systems review were negative for any acute concerns. PHYSICAL EXAM: Vitals - blood pressure 161/81, pulse 78, temperature is 37.2. Chest - clear. Cardiac- normal S1 S2, without S3, S4, or murmur. Abdomen - soft with active bowel sounds. He has just somemild diffuse tenderness, maybe a little bit more in the right upper quadrant. No obvious hepatosplenomegaly. He is kind of tender along the area of the colon. He does have a slight increased tympany. Extremities - legs are without calf tenderness. LABS: Today creatinine is 1.19, potassium 4.6, LFTs are all within normal limits, the lipase was 464, it is down to 115. On his CBC, hemoglobin is 12.7, white count 6,100, which is down from 11,600, platelets are 134,000, differential is 81 neutrophils, 8 lymphs, 9 monos, 3 eosinophils. RADIOLOGY: Ultrasound of his gallbladder showed fatty infiltration of the liver and sludge in the gallbladder. No wall thickening other than there may be a very small amount of pericholecystic fluid. IMPRESSION: Right upper quadrant discomfort and acute increase in pancreas enzymes, concern about a possible biliary source. PLAN: Discussing with Dr. Hollingsworth and we agree that this is suspicious for gallbladder etiology or source anyway. He ate fried fish on Friday night and then has not felt well since then. Has the sludgeand the slight bump in the lipase has now normalized. I think it is reasonable to offer him a cholecy stectomy. I told him that he and his that and they are comfortable. Scheduling emery, it will beFriday or before I can do it, but we will see how he is doing in the morning. He has nothad a bowel movement so I gave him a little mag citrate overnight to help with that. If he is comfortable enough in the morning, we will let him go home if it is okay with the hospitalist service. Planon laparoscopic cholecystectomy later in the week. I will certainly continue to follow this patient with you. Thank you for the consultation on this very pleasant gentleman. ELECTRONICALLY SIGNED Сергей Batres MD, FACS [facility] General Surgery cc: MD Richardson Rico MD /JJD Job ID: [id number] / Document ID: [id number] OX MAN Blair Torres MD - 09/22/2011 4:52 PM CST [facility] Patient Name: ALINE SHINE Date of Service: 09/22/2011 : 1950 Age: 61Y Sex: M DC Site MRN: Patient Loc/Room #: [id number]/3006 Provider: Blair Torres MD, Gastroenterology CONSULTATION SITE: [facility] REQUESTED BY: Damion Biggs MD REASON FOR CONSULTATION: Acute pancreatitis. HPI: Mr Shine is a 61-year-old gentleman who has been hospitalized with pancreatitis. He states that pain began on Friday. He was fasting for a stress test that he was to have when he had an abrupt onset of pain. It was very severe, but then lessened. It did not quite go back to normal, but was able to do the stress test the next day. He did try to eat and the pain worsened again. He didnot have much in the way of nausea or vomiting, but he has been suffering from constipation. He wentin to see his primary doctor and he was found to have evidence of pancreatitis on CT scan. In addition he had laboratories with an elevated lipase of 464,000. He was tried at home therapy with oral pain medications, but those failed and he was admitted last night for treatment. In addition to the pancreatitis he was also found to have a mildly elevated troponin and cardiology is evaluating him as well. Currently his pain level is at 2. He is being controlled on oral hydrocodone. He has had some clear liquids, but that does seem to make the pain worse. Currently he is not on IV fluids. His liver panel was normal. He has a history of an ultrasound 10 years ago that was unremarkable, but none recent.He does not have any family history of pancreatitis and he has never been a significant alcohol user. Of note he did start taking lisinopril 4 or 5 days prior to the onset of this. He has also been on metformin, but that has been there for 2-3 years. No other significant changes in his status have been noted. PAST MEDICAL HISTORY: 1. Type 2 diabetes. 2. Obstructive sleep apnea. 3. Hypertension. 4. Obesity. 5. Pancreatitis. ALLERGIES: PENICILLIN. CURRENT MEDICATIONS: 1. Prilosec. 2. Lisinopril. 3. Zinc. 4. Metformin. 5. Aspirin. 6. Cialis as needed. 7. Vitamin C. 8. Fish oil. 9. Metoprolol in the hospital. SOCIAL HISTORY: He is . He is a rare drinker. He is a nonsmoker. 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 FAMILY HISTORY: Negative for pancreatitis. REVIEW OF SYSTEMS: Pertinent positives and negatives found in the HPI and past medical history, remainder is negative. PHYSICAL EXAMINATION: He is a well-appearing male currently in no acute distress. He is alert and oriented x4. Blood pressure is 136/81. His current temperature is 99.9. His T-max is 100.8. His pulse is 80, pulse ox 94% on room air. Head and neck had a clear oropharynx. Neck is supple. Chest is clear to auscultation. His heart is regular rate and rhythm. His abdominal exam is soft. There are some active bowel sounds. There is moderate tenderness to palpation in the midepigastric region. No rebound or peritoneal signs were present. Extremities without clubbing, cyanosis, or edema. Skin exam is normal. His neurologic exam is nonfocal. LABORATORIES: His liver panel is normal with an AST of 17 and an ALT of 23, his alkaline phosphatase, his 70 total bilirubin is slightly elevated at 1.2, albumin 4.4, creatinine 1.34, first troponin is0.119 and is now 0.078. His lipase 464, amylase 75, white count 11.6, hemoglobin 13.4, platelet count 139,000. IMAGING: CT scan done on the 20 of September showed a normal gallbladder and liver, it did show inflammatory changes around the pancreas and moderate severity. Previous endoscopic evaluation states he had a colonoscopy approximately 10 years ago. In the chart it looks like he a colonoscopy in 2001 that had a hyperplastic polyp. ASSESSMENT AND RECOMMENDATIONS: Idiopathic pancreatitis, question whether this may be related to thenew addition of lisinopril, although this would be very unusual, it has been reported. No other significant risk factors for pancreatitis can be found. It is unlikely to be biliary in nature given the c ompletely normal LFTs, but given the high propensity of this I will check a right upper quadrant ultrasound to rule out any gallbladder disease. In addition to that we will plan to place him on IV fluids 125 mL per hour with half normal saline. He will continue his oral intake as tolerated. Also givensome IV pain medication on an as needed basis to go along with oral hydrocodone. We will check a CRPcurrently and follow him closely for any worsening of his fever curve. At this point would hold off on antibiotics. There does not seem to be an infectious process at the current time, but we will needto follow. Typically indicates of idiopathic pancreatitis I would wait for a second bout before doing further investigation such as endoscopic ultrasounds or MRCPs, but we will need to monitor his situation and let his clinical course guide us. I would discontinue his lisinopril and likely not restartthat given the temporal relationship to his case. Dr Hollingsworth or Dr Cottrell will see the patient tomorrow in my absence. ELECTRONICALLY SIGNED Blair Torres MD [facility] cc: MD Richardson Smith MD /JDL Job ID: [id number] /tlrts Document ID: [id number] OX MAN Sydnee Yusuf MD - 09/22/2011 12:37 PM CST [facility] Patient Name: ALINE SHINE Date of Service: 09/22/2011 : 1950 Age: 61Y Sex: M DC Site MRN: Patient Loc/Room #: [id number]/3006 Provider: Sydnee Yusuf MD, Cardiology CONSULTATION SITE: [facility] REQUESTED BY: Dr. Sydnee Pina Aline is a pleasant 61-year-old gentleman whom I have actually recently seen in the cardiology clinic because of lower chest discomfort. Patient underwent evaluation to include an exercise myocardial perfusion study, which failed to demonstrate significant myocardial ischemia and his chest pain pattern appeared to be noncardiac in origin. Patient had further episodes of discomfort on Friday, saw Dr. Graham. He saw Gladys and a CT was performed, which demonstrated inflammatory changes around the pancreas, quite suggestive for acute pancreatitis. Blood work was drawn demonstrating a marked elevation of his lipase consistent with pancreatitis and he was started on pain medicines. Patient continued to complain of a significant enough discomfort last evening that he came in the hospital for further evaluation. Cardiac enzymes were drawn, which demonstrated a slightly elevated troponin of 0.122 and as such cardiology has been asked to see him again for this issue. Aline himself is complaining of upper chest discomfort. He states the majority of his pain is in his upper abdomen and lower chest area, is rather constant, and he has noticed some improvement with appropriate narcotic use. He has not had further anginal type chest discomfort. He feels this discomfort is similar to what he was complaining ofwhen he saw me in the office this last week. PAST MEDICAL HISTORY: 1. Type 2 diabetes. 2. Obstructive sleep apnea. 3. Hypertension. 4. Obesity. 5. Acute pancreatitis as noted above. 6. Previous knee arthroscopy. ALLERGIES: PENICILLIN. MEDICATIONS: Patient was on hydrocodone prior to admission to the hospital along with omeprazole, Docusate, lisinopril 10 mg a b.i.d., zinc, vitamin C, fish oil, Glucophage 1000 mg b.i.d., Cialis 20 mgp.r.n., aspirin 81 mg a day, multivitamin. In the hospital metoprolol 25 b.i.d. has been added. SOCIAL HISTORY: Patient is , rarely drinks alcohol, does not smoke cigarettes. FAMILY HISTORY: There is no family history of early coronary artery disease in his family. REVIEW OF SYSTEMS: Complete and otherwise unremarkable except as noted above. Examination demonstrates a white male who appears comfortable, in fact is sleeping upon entering his room. Vitals signs demonstrate a blood pressure around 110 over 80. His heart rate is 65. Respiratory rate is 18. HEENT is u nremarkable. His neck is supple. His lungs are clear to auscultation. Heart exam demonstrates the heart sounds to be somewhat distant, negative S3, negative S4. No other murmurs or rubs. Carotid upstroke is normal. No carotid bruits noted. Femoral pulses and distal pulses are 2+. His abdominal examination is obese. The abdomen is slightly distended and there is slight tenderness to palpation in the mid epigastrium. Rectal exam was deferred. Extremities demonstrate no clubbing, cyanosis, petechiae. There is no edema. Neurologic exam appears alert and oriented, generally nonfocal. Psych examination -patient appears alert and mentally stable. A 12-lead EKG demonstrates normal sinus rhythm and some minor nonspecific ST-T wave changes noted in the inferior leads. Troponin as noted is elevated at 0.122. IMPRESSION: Harmeet current symptomatology would certainly appear most consistent with pancreatitis and the fact that his myocardial perfusion study done just several days ago was normal is certainly reassuring. I would recommend that we draw serial cardiac enzymes and should there be a significant rise in his troponin then at that point, one might consider left heart catheterization. However, at thispoint, I believe the majority of his symptoms fit most consistently with pancreatitis and as such I would not recommend that we move toward angiography for this minimal bump in his cardiac enzymes, rather we should watch him carefully. Thank you for allowing me to see Mr. Shine in consultation. I will, of course, continue to follow him with you in the hospital. ELECTRONICALLY SIGNED Sydnee Yusuf MD [facility] Cardiology cc: MD Richardson Pennington MD /GAJ Job ID: [id number] /[facility] Document ID: [id number] OX MAN Sydnee Yusuf MD - 09/22/2011 11:14 AM CSTAssociated Order(s): IP CONSULT TO CARDIOLOGY This note has been dictated. OX MAN documented in this encounter ED Notes Susy Sheridan RN - 09/22/2011 12:29 AM CST Patient had no relief after the sublingual nitro. Called report to Francisca ZAMAN. OX MAN Susy Sheridan RN - 09/21/2011 11:46 PM CST Moved patient to a monitored room OX MAN Tobi Murillo MD - 09/21/2011 10:51 PM CST Chief Complaint Abdominal Pain HPI Comments: Patient presents for evaluation of epigastric abdominal pain that began about 3 days ago. Pain seems to radiate to the chest and shoulders. Yesterday, he saw his primary care doctor for this problem. Hemogram unremarkable. Lipase mildly elevated, normal amylase. He was sent for a CT scan of his abdomen and pelvis with oral and IV contrast. There was CT scan evidence of pancreatitis. Normal appearing gallbladder, liver, kidneys. His primary care doctor gave him some Vicodin to use. He presents tonight stating that Vicodin has not adequately controlled his pain. Denies nausea, vomiting, diarrhea, constipation, blood in the stools. He has recently had episodes of exertional chest pain for which he saw podiatric physician and recently underwent a nuclear stress test, which did not show ischemic changes. Patient is a 61 year old male presenting with abdominal pain. The history is provided by the patientand medical records. Abdominal Pain The primary symptoms of the illness include abdominal pain and shortness of breath (with pain exacerbations). The primary symptoms of the illness do not include dysuria. Symptoms associated with the illness do not include hematuria. Review of Systems Respiratory: Positive for shortness of breath (with pain exacerbations). Gastrointestinal: Positive for abdominal pain. Negative for blood in stool. Genitourinary: Negative for dysuria and hematuria. Allergies Allergen Reactions ??? Penicillins Patient's Medications New Prescriptions No medications on [...] MG TABLET 1 tablet, ORAL, DAILY, PRN [id number], 02/08/10 8:24:43 DOCUSATE SODIUM (COLACE) 50 MG CAPSULE 1-2 tablet PO daily HYDROCODONE-ACETAMINOPHEN (NORCO) 10-325 MG PER TABLET Take 1 Tab by mouth every six hours as needed. Acetaminophen should be limited to 4000 mg per day. LISINOPRIL (PRINIVIL, ZESTRIL) 10 MG TABLET Take 1 Tab by mouth two times a day. METFORMIN (GLUCOPHAGE) 1000 MG TABLET TAKE ONE TABLET BY MOUTH TWICE DAILY MULTIVITAMIN (TAB-A-LISA) TABS 1 tablet, ORAL, DAILY, [...] Obstructive sleep apnea ??? Hypertension ??? Obesity Past Surgical History: Past Surgical History Procedure Date ??? Knee arthroscopy Family History: His family history includes Diabetes in an unspecified family member. Social History: He reports that he has never smoked. He has never used smokeless tobacco. He reportsthat he does not drink alcohol. Exam: BP 140/84 Pulse 110 Temp(Src) 99.5 ??F (37.5 ??C) (Oral) Resp 20 Ht 1.778 m (5' 10) Wt 117.935 kg (260 lb) BMI 37.31 kg/m2 SpO2 94% Physical Exam Constitutional: He is oriented to person, place, and time. No distress. HENT: Mouth/Throat: Oropharynx is clear and moist. Eyes: Right eye exhibits no discharge. Left eye exhibits no discharge. No scleral icterus. Neck: Neck supple. Cardiovascular: Normal rate. No murmur heard. Pulmonary/Chest: Effort normal and breath sounds normal. No respiratory distress. He has no wheezes.He has no rales. Abdominal: Soft. Bowel sounds are normal. He exhibits no distension and no mass. There is tenderness(moderate epigastric). There is no rebound and no guarding. Musculoskeletal: He exhibits no edema and no tenderness. Neurological: He is alert and oriented to person, place, and time. Psychiatric: He has a normal mood and affect. Abdominal Pain Differential Diagnosis: Biliary colic, Cholecystitis, Hepatitis, Pancreatitis, IBS, UTI, GERD, Gastroenteritis, PUD and Gastritis. Lab Results: Results for orders placed during the hospital encounter of 09/21/11 HEMOGRAM/DIFF Component Value Range WBC 11.6 (*) 3.4 - 10.7 (109/L) RBC 4.74 4.20 - 5.90 (1012/L) HGB 13.9 13.0 - 17.0 (g/dL) HCT 40.9 37.5 - 51.0 (%) MCV 86.2 82.0 - 99.0 (fL) MCH 29.3 27.0 - 34.0 (pg) MCHC 34.0 32.0 - 35.7 (g/dL) RDW 13.5 11.0 - 15.0 (%) PLT 139 (*) 150 - 400 (109/L) COMPR MET PANEL Component Value Range SODIUM 138 136 - 143 (mEq/L) POTASSIUM 4.8 3.6 - 5.0 (mEq/L) CHLORIDE 101 98 - 107 (mEq/L) CO2 25 22 - 31 (mEq/L) GLUCOSE 191 (*) 70 - 99 (mg/dL) BUN 15 7 - 21 (mg/dL) CREATININE 1.34 (*) 0.66 - 1.25 (mg/dL) GFR CALC 54 (*) CALCIUM 9.1 8.5 - 10.6 (mg/dL) PROTEIN, TOTAL 7.4 6.3 - 8.2 (gm/dL) ALBUMIN 4.4 3.5 - 5.0 (gm/dL) ALK PHOSPHATASE 70 38 - 126 (IU/L) ALT(SGPT) 23 7 - 56 (IU/L) AST(SGOT) 17 15 - 59 (IU/L) TOTAL BILIRUBIN 1.2 0.0 - 1.2 (mg/dL) ANION GAP 17 AMYLASE Component Value Range AMYLASE 75 30 - 110 (IU/L) LIPASE Component Value Range LIPASE 464 (*) 23 - 203 (IU/L) DIFFERENTIAL Component Value Range NEUTROPHIL % 87.2 (*) 40.0 - 80.0 (%) LYMPHOCYTE % 4.6 (*) 10.0 - 44.0 (%) MONOCYTE % 7.7 3.0 - 15.0 (%) EOSINOPHIL % 0.3 0.0 - 8.0 (%) BASOPHIL % 0.2 0.0 - 3.0 (%) NEUTROPHIL ABS 10.1 (*) 1.7 - 8.5 (109/L) LYMPHOCYTE ABS 0.5 (*) 0.9 - 3.6 (109/L) MONOCYTE ABS 0.9 0.3 - 1.0 (109/L) EOSINOPHIL ABS 0.0 0.0 - 0.6 (109/L) BASOPHIL ABS 0.0 0.0 - 0.3 (109/L) TROPONIN I Component Value Range TROPONIN I 0.119 (*) 0.000 - 0.100 (ng/mL) Lab results are reviewed as documented in the electronic chart. Rad Results: Xr Chest 2v 09/20/2011 TWO VIEWS OF THE CHEST INDICATION: Fever. FINDINGS: Normal heart size. Shallow inspiration. Pulmonary vascularity within normal limits. No focal consolidation or pleural effusion. Mild hypertrophic changes thoracic spine. 09/20/2011 Shallow inspiration. Chest otherwise unremarkable. Ct Abdomen W Contrast 09/20/2011 CT ABDOMEN WITH INTRAVENOUS CONTRAST INDICATION: Acute abdominal pain FINDINGS: Minimal dependent atelectasis in the right lower lobe and inferior lingula. There are moderate hazy inflammatory changes about the pancreas, highly suggestive of acute pancreatitis. Recommend correlation with serum amylase and lipase. Small splenule. Gallbladder, liver, and adrenal glands are normal. Small bilateral renal cysts. Minimal scattered atherosclerotic calcifications. Osseous structures are unremarkable for patient age. 09/20/2011 Acute pancreatitis. No evidence for focal fluid collection or pseudocyst formation. Radiographs interpreted by the ED physician will be over-read by a radiologist and the results will be available in the electronic chart. Other Results: EKG shows normal sinus rhythm. Inferior T wave inversions. No prior EKGs available for comparison Emergency Department Course: Patient presented for evaluation and treatment of epigastric abdominal pain present for about 3 days. Lipase mildly elevated yesterday. CT scan of the abdomen and pelvis showed evidence of pancreatitis. Lipase is higher today. He does have epigastric tenderness. Clinical picture does seem consistent with acute pancreatitis, despite the mild elevation of lipase and normal amylase. Cause of pancreatitis unclear, as he reports no alcohol use and does not appear to have gallbladder disease. Some of his medications could be a contributing factor. He has had problems with chest pain for months. Recent nuclear stress test did not show ischemic changes. Troponin denied mildly elevated and of unclear significance at this point. He does have a mild elevation of his creatinine, possibly related to IV radiocontrast. In the emergency department, he was given IV morphine for analgesia with minimal improvement in pain. Procedures: Procedures Assessment: 577.0 Acute pancreatitis 790.6 Elevated troponin 250.00 Diabetes mellitus type II 593.9 Renal insufficiency Plan: Patient was admitted to the hospital in stable condition MDM Tobi Murillo MD 09/22/11 0003 OX MAN Susy Sheridan RN - 09/21/2011 10:36 PM CST Was told that he had pancreatitis yesterday after a CT scan. Was sent home with pain medication thatdid not manage the pain. OX MAN Mi Mejia - 09/21/2011 10:30 PM CST Pt states he was sent to ED by Dr. Graham for pancreatitis. OX MAN documented in this encounter Miscellaneous Notes Plan of Care - Mirela Antunez MD - 09/25/2011 10:48 AM ICEBOX MAN OX MAN Admission - Tyron Delarosa - 09/22/2011 1:13 AM CST 61 year old male pt admitted to room 3006 from the ER at 0030, due to increasing chest pain. Upon arrival the pt was diaphoretic which he stated has been happening over the past few days. He also c/o chest pain 01/20, is in the room at this time. OX MAN documented in this encounter Plan of Treatment Not on filedocumented as of this encounter Procedures Procedure Name Priority Date/Time Associated Diagnosis Comme nts GLUCOSE, METER 09/24/2011 6:16 Results fo r this AM [employer] procedure are i n the results section. GLUCOSE, METER 09/23/2011 8:55 Results fo r this PM [employer] procedure are i n the results section. GLUCOSE, METER 09/23/2011 5:14 Results fo r this PM [employer] procedure are i n the results section. ECHOCARDIOGRAM Routine 09/23/2011 12:00 Results f or this TRANSTHORACIC COMPLETE PM [employer] MAN proce dure are in the results section. GLUCOSE, METER 09/23/2011 11:38 Results f or this AM [employer] procedure are i n the results section. DIFFERENTIAL 09/23/2011 10:00 Results for this AM [employer] procedure are i n the results section. COMPREHENSIVE Routine 09/23/2011 10:00 Results fo r this METABOLIC PANEL AM [employer] procedure ar e in the results section. HEMOGRAM/DIFF Routine 09/23/2011 10:00 Results fo r this AM [employer] procedure are i n the results section. LIPASE Routine 09/23/2011 10:00 Results for this AM [employer] procedure are i n the results section. AMYLASE Routine 09/23/2011 10:00 Results for this AM [employer] procedure are i n the results section. US GALLBLADDER RUQ Routine 09/23/2011 9:27 Result s for this AM [employer] procedure are i n the results section. GLUCOSE, METER 09/23/2011 6:33 Results fo r this AM [employer] procedure are i n the results section. GLUCOSE, METER 09/23/2011 4:51 Results fo r this AM [employer] procedure are i n the results section. GLUCOSE, METER 09/22/2011 8:50 Results fo r this PM [employer] procedure are i n the results section. GLUCOSE, METER 09/22/2011 5:39 Results fo r this PM [employer] procedure are i n the results section. C REACTIVE PROTEIN Routine 09/22/2011 4:15 Result s for this PM [employer] procedure are i n the results section. CREATININE Routine 09/22/2011 4:15 Results for this PM [employer] procedure are i n the results section. TROPONIN I Timed 09/22/2011 12:09 Results for this PM [employer] procedure are i n the results section. GLUCOSE, METER 09/22/2011 12:01 Results f or this PM [employer] procedure are i n the results section. IP CONSULT TO Routine 09/22/2011 11:15 Results fo r this CARDIOLOGY AM [employer] MAN procedure are i n the results section. EKG 12-LEAD Routine 09/22/2011 7:28 Acute pancreatitis Result s for this AM [employer] procedure are i n the results section. GLUCOSE, METER 09/22/2011 6:37 Results fo r this AM [employer] procedure are i n the results section. TROPONIN I Timed 09/22/2011 5:28 Results for this AM [employer] procedure are i n the results section. EKG 12-LEAD STAT 09/21/2011 11:49 Acute pancreatitis Resul ts for this PM [employer] procedure are i n the results section. DIFFERENTIAL 09/21/2011 11:01 Results for this PM [employer] procedure are i n the results section. COMPREHENSIVE STAT 09/21/2011 11:01 Results fo r this METABOLIC PANEL PM [employer] procedure ar e in the results section. TROPONIN I STAT 09/21/2011 11:01 Results for this PM [employer] procedure are i n the results section. HEMOGRAM/DIFF STAT 09/21/2011 11:01 Results fo r this PM [employer] procedure are i n the results section. LIPASE STAT 09/21/2011 11:01 Results for this PM [employer] procedure are i n the results section. AMYLASE STAT 09/21/2011 11:01 Results for this PM [employer] procedure are i n the results section. documented in this encounter Results (ABNORMAL) GLUCOSE, METER (09/24/2011 6:16 AM ICEBOX MAN) P athologist Signature GLUCOSE, METER 131 (H) 70 - 99 [place] mg/dL [facility] Specimen Anatomical Collection Method Collection Time Receive d Time (Source) Location / / Volume Laterality 09/24/2011 6:16 AM 1 6:20 ICEBOX MAN AM [facility]BOX MAN Tobi Murillo MD EC CHEMISTRY ORDERABLES Performing Organization Address City/State/ZIP Code Phon e Number [facility] (ABNORMAL) GLUCOSE, METER (09/23/2011 8:55 PM ICEBOX MAN) P athologist Signature GLUCOSE, METER 154 (H) 70 - 99 [place] mg/dL LABORATORY Comment: Notified RN Specimen Anatomical Collection Method Collection Time Receive d Time (Source) Location / / Volume Laterality 09/23/2011 8:55 PM 1 9:00 ICEBOX MAN PM [facility] MAN Tobi Murillo MD EC CHEMISTRY ORDERABLES Performing Organization Address City/State/ZIP Code Phon e Number [facility] (ABNORMAL) GLUCOSE, METER (09/23/2011 5:14 PM ICEBOX MAN) P athologist Signature GLUCOSE, METER 146 (H) 70 - 99 [place] mg/dL LABORATORY Comment: Notified RN Specimen Anatomical Collection Method Collection Time Receive d Time (Source) Location / / Volume Laterality 09/23/2011 5:14 PM 1 5:20 ICEBOX MAN PM [employer]BOX MAN Tobi Murillo MD EC CHEMISTRY ORDERABLES Performing Organization Address City/State/ZIP Code Phon e Number [facility] ECHOCARDIOGRAM TRANSTHORACIC COMPLETE (09/23/2011 12:00 PM ICEBOX MAN) Specimen (Source) Anatomical Collection Method Collection Time Re ceived Time Location / / Volume Laterality 09/23/2011 12:00 PM ICEBOX MAN Transcriptions Leticia Rasheed MD - 09/23/2011 9:07 AM CST [facility] Patient Name: ALINE SHINE Date of Service: 09/23/2011 : 951 Age: 61Y Sex: M DC Site MRN: Patient Loc/Room #: [id number]/3006 Provider: Leticia Rasheed MD, Cardiolog y ECHOCARDIOGRAM AND DOPPLER REPORT SITE: [facility] Hand Picker: LETICIA RASHEED MD Tech: MO Ordered by: SYDNEE YUSUF Primary Care Phys Name: Richardson Graham MD C ontrast: Reason for Test: Coronary artery disease . Transthoracic echocardiogram with color flow and Doppler. Ht 70 Wt 260 BSA 2.3 HR 71 BP 122/77 Rhy thm NS M-Mode/2D Diastolic function 4.3 Asc Ao DT (199 + or - 32 ms): 150.4 4.1 Aorta (<3.7cm) E Jean (0.86 + or - 0. 16 m/s): 1.0 4.1 LA (<4.0cm) A Jean (0.56 + or - 0.13 m/s): 0.8 RV (<3.0cm) E-A Ratio (1.5 + or - 0.5): 1.3 3.7 LVd (<5.6cm) Ma: 2.1 LVs (<3.5cm) PVa: 1.2 IVSd (<1.2cm) PV S/D: 1.5 IVSs Atrial Rev.: 0.3 m/s 1.1 LVPWd (<1.2cm) E/E' : 11.5 1.2 LVPWs LA vol Index: 37.1 ml/m2 2.5 LVOT cm RA Area: cm2 M-Mode EF 54% Bi-Plane EF TV 1.5 IVC (1.2 - 2.3 cm) Peak Jean: 2.2 m/s Max P mmHg Est RAP: 10 mmHg PAs: 29 mmHg AoV MV Peak Jean: 1.1 m/s Mean PG: mmHg Max PG: mmHg MVA (VTI): cm2 Mean PG: mmHg MVA (P1/2T): cm2 I,D EDWIGE: cm2 PISA ERO: cm2 V,D EDWIGE: cm2 RV: ml Dimen.Index: MR VTI: m AoV VTI: 21.7 cm MR Peak Jean: m/s LVOT VTI: 20.0 cm Radius: cm Peak LVOT V: 1.0 m/s Alias Jean: m/s AI P1/2t: msec MV Annul: cm DS: m/s MV VTI: m SV: ml SV: ml PV Peak Jean: 0.8 m/s WI end winkler: 3.4 mmHg INTERPRETATION: Left ventricular size an d systolic size were normal with an estimated ejection fraction of 55% to 60%. Left ventricular wall thickness was increased, consistent with left ventricular hypertrophy. No wall motion abnormalities were demonstra valdemar. There was mild left atrial enlargement. The right atrium and right ventricle were of normal dimension. The aortic valve leaflets were sclerotic without stenosis. There was mitral valve annular calcifica tion and mild mitral regurgitation. Trivial aortic, trivial pulmonary, and mild tricuspid regurgitation were identified. A peak tricuspid regurgitant velocity was measured to allow calculation pulmonary artery systolic pressure of 29 mmHg. No intracardiac masses, thrombi, or effusions were demonstrated. There was mild aortic root enlargement with the proximal ascending aorta measuring 43 mm. CONCLUSIONS: 1. Normal left ventricular size and syst olic function, with estimated ejection fraction of 55% to 60%. 2. [id number] left ventricular h ypertrophy. 3. Mild left atrial enlargement. 4. Mitral valve annular calcification wi th mild regurgitation. 5. Aortic valve sclerosis with trivial a ortic regurgitation. 6. Trivial pulmonary regurgitation. 7. Mild tricuspid regurgitation with the calculated pulmonary artery systolic pressure measured at 29 mmHg. 8. Mild aortic root enlargement; the pro ximal ascending aorta measures 43 mm. ELECTRONICALLY SIGNED Leticia Rasheed MD [place] [facility] cc: MD Richardson Andrade MD /MRR Job ID: [id number] /[id number] Document ID: [id number] A: 09/23/2011 11:05/sak (txt) Sydnee Yusuf MD EC ECHO ORDERABLES (ABNORMAL) GLUCOSE, METER (09/23/2011 11:38 AM ICEBOX MAN) athologist Signature GLUCOSE, METER 143 (H) 70 - 99 [place] mg/dL LABORATORY Specimen Anatomical Collection Method Collection Time Receive d Time (Source) Location / / Volume Laterality 09/23/2011 11:38 09/23/2011 7:35 AM ICEBOX MAN PM ICEBOX MAN Tobi Murillo MD EC CHEMISTRY ORDERABLES Performing Organization Address City/State/ZIP Code Phon e Number [place] [facility] (ABNORMAL) DIFFERENTIAL (09/23/2011 10:00 AM ICEBOX MAN) [facility] gist Method Time Signature NEUTROPHIL % 80.6 (H) 40.0 - [place] 80.0 % LABORATORY LYMPHOCYTE % 7.5 (L) 10.0 - [place] 44.0 % LABORATORY MONOCYTE % 9.1 3.0 - 15.0 [place] % LABORATORY EOSINOPHIL % 2.6 0.0 - 8.0 [place] % LABORATORY BASOPHIL % 0.2 0.0 - 3.0 [place] % LABORATORY NEUTROPHIL ABS 5.0 1.7 - 8.5 [place] 109/L LABORATORY LYMPHOCYTE ABS 0.5 (L) 0.9 - 3.6 [place] 109/L LABORATORY MONOCYTE ABS 0.6 0.3 - 1.0 [place] 109/L LABORATORY EOSINOPHIL ABS 0.2 0.0 - 0.6 [place] 109/L LABORATORY BASOPHIL ABS 0.0 0.0 - 0.3 [place] 109/L LABORATORY Specimen Anatomical Collection Method Collection Time Receive d Time (Source) Location / / Volume Laterality 09/23/2011 10:00 09/23/2011 AM ICEBOX MAN 10:04 AM ICEBOX MAN Mirela Antunez MD EC LABORATORY Performing Organization Address City/State/ZIP Code Phon e Number [facility] LABORATORY (ABNORMAL) HEMOGRAM/DIFF (09/23/2011 10:00 AM ICEBOX MAN) P athologist Signature WBC 6.1 3.4 - 10.7 [place] 109/L LABORATORY RBC 4.25 4.20 - 5.90 [place] 1012/L LABORATORY HGB 12.7 (L) 13.0 - 17.0 [place] g/dL LABORATORY HCT 36.9 (L) 37.5 - 51.0 [place] % LABORATORY MCV 87.0 82.0 - 99.0 [place] fL LABORATORY MCH 29.9 27.0 - 34.0 [place] pg LABORATORY MCHC 34.4 32.0 - 35.7 [place] g/dL LABORATORY RDW 13.6 11.0 - 15.0 [place] % LABORATORY PLT 134 (L) 150 - 400 [place] 109/L LABORATORY Specimen Anatomical Collection Method Collection Time Receive d Time (Source) Location / / Volume Laterality 09/23/2011 10:00 09/23/2011 AM ICEBOX MAN 10:04 AM ICEBOX MAN Mirela Antunez MD EC HEMATOLOGY ORDERABLES Performing Organization Address City/State/ZIP Code Phon e Number [facility] LABORATORY LIPASE (09/23/2011 10:00 AM ICEBOX MAN) P athologist Signature LIPASE 115 23 - 203 [place] IU/L LABORATORY Specimen Anatomical Collection Method Collection Time Receive d Time (Source) Location / / Volume Laterality 09/23/2011 10:00 09/23/2011 AM ICEBOX MAN 10:04 AM ICEBOX MAN Mirela Antunez MD EC CHEMISTRY ORDERABLES Performing Organization Address City/State/ZIP Code Phon e Number [facility] LABORATORY AMYLASE (09/23/2011 10:00 AM ICEBOX MAN) P athologist Signature AMYLASE 33 30 - 110 [place] IU/L LABORATORY Specimen Anatomical Collection Method Collection Time Receive d Time (Source) Location / / Volume Laterality 09/23/2011 10:00 09/23/2011 AM ICEBOX MAN 10:04 AM ICEBOX MAN Mirela Antuenz MD EC CHEMISTRY ORDERABLES Performing Organization Address City/[facility] Phon e Number [facility] LABORATORY (ABNORMAL) COMPR MET PANEL (09/23/2011 10:00 AM ICEBOX MAN) P athologist Signature SODIUM 135 (L) 136 - 143 [place] mEq/L LABORATORY POTASSIUM 4.6 3.6 - 5.0 [place] mEq/L LABORATORY Chloride 98 98 - 107 [place] mEq/L LABORATORY CO2 28 22 - 31 [place] mEq/L LABORATORY GLUCOSE 146 (H) 70 - 99 [place] mg/dL LABORATORY BUN 21 7 - 21 [place] mg/dL LABORATORY Creatinine 1.19 0.66 - 1.25 [place] mg/dL LABORATORY GFR CALC >60 [facility] LABORATORY Comment: GFR Normal: >60 mL/min/1.73 m2 Calcium 8.4 (L) 8.5 - 10.6 mg/dL [facility] LABO RATORY Protein, Total 6.9 6.3 - 8.2 gm/dL [facility] LABORATORY Albumin 3.8 3.5 - 5.0 gm/dL [facility] LABOR ATORY ALK PHOSPHATASE 76 38 - 126 IU/L [facility] L ABORATORY ALT(SGPT) 27 7 - 56 IU/L [place] LABORATOR Y AST(SGOT) 24 15 - 59 IU/L [place] LAB[facility] RY TOTAL BILIRUBIN 0.8 0.0 - 1.2 mg/dL [facility] LABORATORY ANION GAP 14 [facility] LAB[facility] Specimen Anatomical Collection Method Collection Time Receive d Time (Source) Location / / Volume Laterality 09/23/2011 10:00 09/23/2011 AM ICEBOX MAN 10:04 AM ICEBOX MAN Mirela Antunez MD EC CHEMISTRY ORDERABLES Performing Organization Address City/[facility]/ZIP [facility] Phon e Number [facility] US GALLBLADDER RUQ (09/23/2011 9:27 AM ICEBOX MAN) Anatomical Region Laterality Modality Abdomen Ultrasound Specimen (Source) Anatomical Location Collection Method / Collectio n Time Received Time / Laterality Volume Impressions 09/23/2011 2:57 PM ICEBOX MAN ?? 1. ??Limited study due to fatty infiltra tion of the liver and overlying bowel gas. 2. ??Pancreas not visualized due to over lying bowel gas. 3. ??Sludge in the gallbladder. ??No gal lstones. ??No wall thickening though there may be a tiny amount of pericholec ystic fluid. Narrative 09/23/2011 2:57 PM ICEBOX MAN ULTRASOUND GALLBLADDER/RIGHT UPPER QUADRANT 09/23/2011 INDICATION: ??Patient with pancreatitis, evaluate for biliary pathology. COMPARISON: ??CT study dated 09/20/2011. FINDINGS: ??Liver difficult to visualize due to diffuse fatty infiltration, which was also demonstrated on CT. ??The re is sludge in the gallbladder. ?? No definite gallstones. ??There may be a tiny amount of pericholecystic fluid. ??No sonographic Valera sign. ??C ommon bile duct upper limits of normal at 6 mm. ??Pancreas not visualize d due to overlying bowel gas. ?? Right kidney unremarkable in appearance. ??Visualized abdominal aorta normal caliber. ?? Procedure Note Sydnee Rushing MD - 09/23/2011 ULTRASOUND GALLBLADDER/RIGHT UPPER QUADR ANT 09/23/2011 INDICATION: Patient with pancreatitis, e valuate for biliary pathology. COMPARISON: CT study dated 09/20/2011. FINDINGS: Liver difficult to visualize d ue to diffuse fatty infiltration, which was also demonstrated on CT. There is sludge in the gallbladder. No definite gallstones. There may be a tiny amount of pericholecystic fluid. No sonographic Valera sign. Commo n bile duct upper limits of normal at 6 mm. Pancreas not visualized due to overlying bowel gas. Right kidney unremarkable in appearance. Visualized abdominal aorta normal caliber. IMPRESSION: 1. Limited study due to fatty infiltrati on of the liver and overlying bowel gas. 2. Pancreas not visualized due to overly ing bowel gas. 3. Sludge in the gallbladder. No gallsto rey. No wall thickening though there may be a tiny amount of pericholecystic fluid. Blair Torres MD US ORDERABLES (ABNORMAL) GLUCOSE, METER (09/23/2011 6:33 AM ICEBOX MAN) P athologist Signature GLUCOSE, METER 131 (H) 70 - 99 [place] mg/dL LABORATORY Specimen Anatomical Collection Method Collection Time Receive d Time (Source) Location / / Volume Laterality 09/23/2011 6:33 AM 1 6:45 ICEBOX MAN AM ICEBOX MAN Tobi Muirllo MD EC CHEMISTRY ORDERABLES Performing Organization Address City/[facility] Phon e Number [place] [facility] (ABNORMAL) GLUCOSE, METER (09/23/2011 4:51 AM ICEBOX MAN) P athologist Signature GLUCOSE, METER 125 (H) 70 - 99 [place] mg/dL LABORATORY Specimen Anatomical Collection Method Collection Time Receive d Time (Source) Location / / Volume Laterality 09/23/2011 4:51 AM 1 6:35 ICEBOX MAN AM ICEBOX MAN Tobi Murillo MD EC CHEMISTRY ORDERABLES Performing Organization Address City/[facility] Code Phon e Number [place] [facility] (ABNORMAL) GLUCOSE, METER (09/22/2011 8:50 PM ICEBOX MAN) P athologist Signature GLUCOSE, METER 138 (H) 70 - 99 [place] mg/dL LABORATORY Comment: Notified RN Specimen Anatomical Collection Method Collection Time Receive d Time (Source) Location / / Volume Laterality 09/22/2011 8:50 PM 1 4:00 ICEBOX MAN AM ICEBOX MAN Tobi Murillo MD EC CHEMISTRY ORDERABLES Performing Organization Address City/[facility] Code Phon e Number [place] [facility] (ABNORMAL) GLUCOSE, METER (09/22/2011 5:39 PM ICEBOX MAN) P athologist Signature GLUCOSE, METER 175 (H) 70 - 99 [place] mg/dL LABORATORY Specimen Anatomical Collection Method Collection Time Receive d Time (Source) Location / / Volume Laterality 09/22/2011 5:39 PM 1 5:45 ICEBOX MAN PM ICEBOX MAN Tobi Murillo MD EC CHEMISTRY ORDERABLES Performing Organization Address City/State/ZIP Code Phon e Number [place] [facility] (ABNORMAL) CRP (09/22/2011 4:15 PM ICEBOX MAN) P athologist Signature CRP 31.9 (H) 0.0 - 1.0 [place] mg/dL LABORATORY Specimen Anatomical Collection Method Collection Time Receive d Time (Source) Location / / Volume Laterality 09/22/2011 4:15 PM 1 4:28 ICEBOX MAN PM ICEBOX MAN Blair Torres MD EC CHEMISTRY ORDERABLES Performing Organization Address City/State/ZIP Code Phon e Number [place] [facility] CREATININE (09/22/2011 4:15 PM ICEBOX MAN) P athologist Signature Creatinine 1.22 0.66 - 1.25 [place] mg/dL LABORATORY GFR CALC >60 [place] [facility] Comment: GFR Normal: >60 mL/min/1.73 m2 Specimen Anatomical Collection Method Collection Time Receive d Time (Source) Location / / Volume Laterality 09/22/2011 4:15 PM 1 4:21 ICEBOX MAN PM ICEBOX MAN Sydnee Short MD EC CHEMISTRY ORDERABLES Performing Organization Address City/[facility]/ZIP Code Phon e Number [facility] TROPONIN I (09/22/2011 12:09 PM ICEBOX MAN) P athologist Signature Troponin I 0.078 0.000 - [place] 0.100 ng/mL LABORATORY Specimen Anatomical Collection Method Collection Time Receive d Time (Source) Location / / Volume Laterality 09/22/2011 12:09 09/22/2011 PM ICEBOX MAN 12:13 PM ICEBOX MAN Damion Biggs MD EC CHEMISTRY ORDERABLES Performing Organization Address City/State/ZIP Code Phon e Number [place] [facility] (ABNORMAL) GLUCOSE, METER (09/22/2011 12:01 PM ICEBOX MAN) P athologist Signature GLUCOSE, METER 165 (H) 70 - 99 [place] mg/dL LABORATORY Specimen Anatomical Collection Method Collection Time Receive d Time (Source) Location / / Volume Laterality 09/22/2011 12:01 09/22/2011 PM ICEBOX MAN 12:20 PM ICEBOX MAN Tobi Murillo MD EC CHEMISTRY ORDERABLES Performing Organization Address City/State/ZIP Code Phon e Number [facility] LAB[facility] IP CONSULT TO CARDIOLOGY (09/22/2011 11:15 AM ICEBOX MAN) Narrative Sydnee Yusuf MD - 09/22/2011 11:15 A M ICEBOX MAN Sydnee Yusuf MD ? 09/22/2011 11:15 AM This note has been dictated. Procedure Note Sydnee Yusuf MD - 09/22/2011 11:14 A M CST This note has been dictated. Damion Biggs MD IP CONSULT ORDERABLES EKG 12-LEAD (09/22/2011 7:28 AM ICEBOX MAN) P athologist Signature Ventricular Rate 76 BPM [place] [facility] Atrial Rate 76 BPM [place] [facility] P-R Interval 148 ms [place] [facility] QRS Duration 106 ms [place] [facility] QT 382 ms [place] [facility] QTc 429 ms [place] [facility] P [place] 34 degrees [place] [facility] R [place] 47 degrees [place] [facility] T [place] 5 degrees [place] [facility] Specimen (Source) Anatomical Collection Method Collection Time Re ceived Time Location / / Volume Laterality 09/22/2011 7:28 AM ICEBOX MAN Narrative [facility] - 09/22/2011 11:25 A M ICEBOX MAN Confirming Doc Sydnee Yusuf MD Cannot rule out Inferior infarct, age un determined Abnormal ECG When compared with ECG of 21-SEP-2011 23 :49, No significant change was found Damion Biggs MD IP ECG ORDERABLES Performing Organization Address City/State/ZIP Code Phon e Number [place] [facility] (ABNORMAL) GLUCOSE, METER (09/22/2011 6:37 AM ICEBOX MAN) P athologist Signature GLUCOSE, METER 154 (H) 70 - 99 [place] mg/dL LABORATORY Specimen Anatomical Collection Method Collection Time Receive d Time (Source) Location / / Volume Laterality 09/22/2011 6:37 AM 1 6:50 ICEBOX MAN AM ICEBOX MAN Tobi Murillo MD EC CHEMISTRY ORDERABLES Performing Organization Address City/State/ZIP Code Phon e Number [place] [facility] (ABNORMAL) TROPONIN I (09/22/2011 5:28 AM ICEBOX MAN) P athologist Signature Troponin I 0.122 (H) 0.000 - [place] 0.100 LABORATORY ng/mL Specimen Anatomical Collection Method Collection Time Receive d Time (Source) Location / / Volume Laterality 09/22/2011 5:28 AM 1 6:03 ICEBOX MAN AM ICEBOX MAN Damion Biggs MD EC CHEMISTRY ORDERABLES Performing Organization Address City/State/ZIP Code Phon e Number [place] [facility] EKG 12-LEAD (09/21/2011 11:49 PM ICEBOX MAN) P athologist Signature Ventricular Rate 99 BPM [place] [facility] Atrial Rate 99 BPM [place] [facility] P-R Interval 148 ms [place] [facility] QRS Duration 98 ms [place] [facility] QT 352 ms [place] [facility] QTc 451 ms [place] [facility] P [place] 31 degrees [place] [facility] R [place] 38 degrees [place] [facility] T [place] -11 degrees [facility] Specimen (Source) Anatomical Collection Method Collection Time Re ceived Time Location / / Volume Laterality 09/21/2011 11:49 PM ICEBOX MAN Narrative [facility] - 09/22/2011 11:24 A M ICEBOX MAN Confirming Doc Sydnee Yusuf MD Normal sinus rhythm Possible Inferior infarct ,age indetermi elsa Abnormal ECG No previous ECGs available Tobi Murillo MD IP ECG ORDERABLES Performing Organization Address City/State/ZIP Code Phon e Number [facility] LABORATORY (ABNORMAL) TROPONIN I (09/21/2011 11:01 PM ICEBOX MAN) P athologist Signature Troponin I 0.119 (H) 0.000 - [place] 0.100 LABORATORY ng/mL Specimen Anatomical Collection Method Collection Time Receive d Time (Source) Location / / Volume Laterality 09/21/2011 11:01 09/21/2011 PM ICEBOX MAN 11:06 PM ICEBOX MAN Tobi Murillo MD EC CHEMISTRY ORDERABLES Performing Organization Address City/State/ZIP Code Phon e Number [facility] LABOR[facility] (ABNORMAL) DIFFERENTIAL (09/21/2011 11:01 PM ICEBOX MAN) Patholo gist Method Time Signature NEUTROPHIL % 87.2 (H) 40.0 - [place] 80.0 % LABORATORY LYMPHOCYTE % 4.6 (L) 10.0 - [place] 44.0 % LABORATORY MONOCYTE % 7.7 3.0 - 15.0 [place] % LABORATORY EOSINOPHIL % 0.3 0.0 - 8.0 [place] % LABORATORY BASOPHIL % 0.2 0.0 - 3.0 [place] % LABORATORY NEUTROPHIL ABS 10.1 (H) 1.7 - 8.5 [place] 109/L LABORATORY LYMPHOCYTE ABS 0.5 (L) 0.9 - 3.6 [place] 109/L LABORATORY MONOCYTE ABS 0.9 0.3 - 1.0 [place] 109/L LABORATORY EOSINOPHIL ABS 0.0 0.0 - 0.6 [place] 109/L LABORATORY BASOPHIL ABS 0.0 0.0 - 0.3 [place] 109/L LABORATORY Specimen Anatomical Collection Method Collection Time Receive d Time (Source) Location / / Volume Laterality 09/21/2011 11:01 09/21/2011 PM ICEBOX MAN 11:06 PM ICEBOX MAN Tobi Murillo MD EC LABORATORY Performing Organization Address City/State/ZIP Code Phon e Number [facility] LAB[facility] (ABNORMAL) LIPASE (09/21/2011 11:01 PM ICEBOX MAN) athologist Signature LIPASE 464 (H) 23 - 203 [place] IU/L LABORATORY Specimen Anatomical Collection Method Collection Time Receive d Time (Source) Location / / Volume Laterality 09/21/2011 11:01 09/21/2011 PM ICEBOX MAN 11:06 PM ICEBOX MAN Tobi Murillo MD EC CHEMISTRY ORDERABLES Performing Organization Address City/[facility]/ZIP Code Phon e Number [facility] LABORATORY AMYLASE (09/21/2011 11:01 PM ICEBOX MAN) athologist Signature AMYLASE 75 30 - 110 [place] IU/L LABORATORY Specimen Anatomical Collection Method Collection Time Receive d Time (Source) Location / / Volume Laterality 09/21/2011 11:01 09/21/2011 PM ICEBOX MAN 11:06 PM ICEBOX MAN Tobi Murillo MD EC CHEMISTRY ORDERABLES Performing Organization Address City/[facility]/ZIP Code Phon e Number [facility] LABORATORY (ABNORMAL) COMPR MET PANEL (09/21/2011 11:01 PM ICEBOX MAN) athologist Signature SODIUM 138 136 - 143 [place] mEq/L LABORATORY POTASSIUM 4.8 3.6 - 5.0 [place] mEq/L LABORATORY Chloride 101 98 - 107 [place] mEq/L LABORATORY CO2 25 22 - 31 [place] mEq/L LABORATORY GLUCOSE 191 (H) 70 - 99 [place] mg/dL LABORATORY BUN 15 7 - 21 [place] mg/dL LABORATORY Creatinine 1.34 (H) 0.66 - [place] 1.25 mg/dL LABORATORY GFR CALC 54 (A) [facility] LABOR[facility] Comment: GFR Normal: >60 mL/min/1.73 m2 Calcium 9.1 8.5 - 10.6 mg/dL [facility] LABO RATORY Protein, Total 7.4 6.3 - 8.2 gm/dL [facility] LABORATORY Albumin 4.4 3.5 - 5.0 gm/dL [facility] LABOR ATORY ALK PHOSPHATASE 70 38 - 126 IU/L [facility] L ABORATORY ALT(SGPT) 23 7 - 56 IU/L [facility] LABORATOR Y AST(SGOT) 17 15 - 59 IU/L [facility] LABORATO RY TOTAL BILIRUBIN 1.2 0.0 - 1.2 mg/dL [facility] LABORATORY ANION GAP 17 [facility] LAB[facility] Specimen Anatomical Collection Method Collection Time Receive d Time (Source) Location / / Volume Laterality 09/21/2011 11:01 09/21/2011 PM ICEBOX MAN 11:06 PM ICEBOX MAN Tobi Murillo MD EC CHEMISTRY ORDERABLES Performing Organization Address City/State/ZIP Code Phon e Number [facility] LABORATORY (ABNORMAL) HEMOGRAM/DIFF (09/21/2011 11:01 PM ICEBOX MAN) P athologist Signature WBC 11.6 (H) 3.4 - 10.7 [facility] 109/L LABORATORY RBC 4.74 4.20 - 5.90 [facility] 1012/L LABORATORY HGB 13.9 13.0 - 17.0 [facility] g/dL LABORATORY HCT 40.9 37.5 - 51.0 [facility] % LABORATORY MCV 86.2 82.0 - 99.0 [facility] fL LABORATORY MCH 29.3 27.0 - 34.0 [facility] pg LABORATORY MCHC 34.0 32.0 - 35.7 [facility] g/dL LABORATORY RDW 13.5 11.0 - 15.0 [facility] % LABORATORY PLT 139 (L) 150 - 400 [facility] 109/L LABORATORY Specimen Anatomical Collection Method Collection Time Receive d Time (Source) Location / / Volume Laterality 09/21/2011 11:01 09/21/2011 PM ICEBOX MAN 11:06 PM ICEBOX MAN Tobi Murillo MD EC HEMATOLOGY ORDERABLES Performing Organization Address City/State/ZIP Code Phon e Number [facility] LABORATORY documented in this encounter Visit Diagnoses Diagnosis Acute pancreatitis Elevated troponin Other abnormal blood chemistry Diabetes mellitus type II Type II or unspecified type diabetes sadia litus without mention of complication, not stated as uncontrolled Renal insufficiency Unspecified disorder of kidney and urete r Essential hypertension, benign Diabetes mellitus (HCC) Type II or unspecified type diabetes sadia litus without mention of complication, not stated as uncontrolled Chest pain Chest pain, unspecified Cholelithiasis Calculus of gallbladder without mention of cholecystitis or obstruction Acute pancreatitis Diabetes mellitus type II Type II or unspecified type diabetes sadia litus without mention of complication, not stated as uncontrolled Renal insufficiency Unspecified disorder of kidney and urete r Elevated troponin Other abnormal blood chemistry documented in this encounter Admitting Diagnoses Diagnosis Acute pancreatitis Diabetes mellitus type II Type II or unspecified type diabetes sadia litus without mention of complication, not stated as uncontrolled Renal insufficiency Unspecified disorder of kidney and urete r Elevated troponin Other abnormal blood chemistry documented in this encounter Administered Medications Inactive Administered Medications Medication Order MAR Action Action Date Dose Rate Site ASPIRIN 81 MG OR CHEW Given 09/22/2011 12:03 AM ICEBOX MAN mg 1 dose, Starting on 09/21/11 at 2357, Until 09/22/11 at 0003 aspirin chewable tablet 81 mg Given 09/24/2011 7:55 AM ICEBOX MAN 81 mg 81 mg, Oral, ONCE DAILY, First dose on 09/22/11 at 0800, Until Discontinued Given 09/23/2011 8:38 AM ICEBOX MAN 81 mg Given 09/22/2011 9:07 AM ICEBOX MAN 81 mg bisacodyl (DULCOLAX) suppository 10 mg Given 09/23/2011 8:26 PM ICEBOX MAN 10 mg 10 mg, Rectal, 2 TIMES DAILY NEEDED, Starting on 09/22/11 at 0119, Until 09/24/11 at 1242, Constipation Given 09/23/2011 11:50 AM ICEBOX MAN 10 mg docusate sodium (COLACE) capsule 100 mg Given 09/24/2011 7:55 AM ICEBOX MAN 100 mg 100 mg, Oral, 2 TIMES DAILY, First dose on 09/22/11 at 0800, Until Discontinued Given 09/23/2011 8:24 PM ICEBOX MAN 100 mg Given 09/23/2011 8:38 AM ICEBOX MAN 100 mg Given 09/22/2011 8:43 PM ICEBOX MAN 100 mg Given 09/22/2011 9:07 AM ICEBOX MAN 100 mg enoxaparin (LOVENOX) injection Given 09/24/2011 7:56 AM ICEBOX MAN 40 m g Abdominal Tissue 40 mg 40 mg, Subcutaneous, ONCE DAILY, First dose on 09/22/11 at 0800, Until Discontinued Given 09/23/2011 8:38 AM ICEBOX MAN 40 mg Given 09/22/2011 9:07 AM ICEBOX MAN 40 mg HYDROcodone-acetaminophen (LORTAB) 7.5-500 Given 09/23/2011 1:38 PM ICEBOX MAN 7.5 mg MG/15ML oral solution 7.5 mg 7.5 mg (15 mL), Oral, EVERY 4 HOURS NEEDED, Starting on 09/22/11 at 0119, Until Fri09/24/11 at 1242, Pain , moderate pain Given 09/23/2011 8:41 AM ICEBOX MAN 7.5 mg Given 09/23/2011 12:47 AM ICEBOX MAN 7.5 mg HYDROcodone-acetaminophen (NORCO) 10-325 MG Given 09/12 8:15 PM ICEBOX MAN 1 Tablet per tablet 1 Tab 1 Tablet, Oral, EVERY 3 HOURS NEEDED, Starting on 09/22/11 at 1200, Until Fri09/24/11 at 1242, Pain Given 09/23/2011 4:20 AM ICEBOX MAN 1 Tablet Given 09/22/2011 8:43 PM ICEBOX MAN 1 Tablet Given 09/22/2011 5:43 PM ICEBOX MAN 1 Tablet Given 09/22/2011 2:50 PM ICEBOX MAN 1 Tablet Given 09/22/2011 11:45 AM ICEBOX MAN 1 Tablet HYDROcodone-acetaminophen (NORCO) Given by Other 09/22/2011 8:50 AM 2 Tablets 10-325 MG per tablet 2 Tab ICEBOX MAN 2 Tablet, Oral, ONCE, 1 dose, On 09/22/11 at 0930 HYDROcodone-acetaminophen (VICODIN, Given 09/22/2011 1:43 AM ICEBOX MAN 2 Tablets LORTAB) 5-500 MG per tablet 1-2 Tab 1-2 Tablet, Oral, EVERY 4 HOURS NEEDED, Starting on 09/22/11 at 0119, Until Fri09/22/11 at 0906, Pain , moderate pain HYDROmorphone (DILAUDID) injection 0.5-1 mg Given 09/22/2011 4:20 AM ICEBOX MAN 1 mg 0.5-1 mg, IV Push, EVERY 2 HOURS NEEDED, Starting on 09/22/11 at 0119, Until Fri09/22/11 at 1619, Pain , severe pain HYDROmorphone (DILAUDID) injection 1 mg Given 09/22/2011 8:50 PM ICEBOX MAN 1 mg 1 mg, IV Push, EVERY 2 HOURS NEEDED, Starting on Fri09/22/11 at 1613, Until Fri09/24/11 at 1242, Pain insulin aspart (NOVOLOG) injection Given 09/24/2011 7:11 AM ICEBOX MAN 2 Units Subcutaneous, WITH MEALS AND BEDTIME, First dose on 09/22/11 at 0800, Until Discontinued Given 09/23/2011 5:38 PM ICEBOX MAN 2 Units Given 09/23/2011 11:43 AM ICEBOX MAN 2 Units Abdo john Tissue magnesium citrate (CITROMA) oral solution 150 Given 6:00 PM ICEBOX MAN 150 mL mL 150 mL, Oral, ONCE, 1 dose, On 09/23/11 at 1730 metFORMIN (GLUCOPHAGE) tablet 1,000 mg Given 09/24/2011 7:45 AM ICEBOX MAN 1,000 mg 1,000 mg, Oral, 2 TIMES DAILY WITH MEALS, First dose (after last modification) on 09/22/11 at 1730, Until Discontinued Given 09/23/2011 5:39 PM ICEBOX MAN 1,000 mg Given 09/23/2011 11:45 AM ICEBOX MAN 1,000 mg Given 09/22/2011 5:40 PM ICEBOX MAN 1,000 mg metoprolol tartrate (LOPRESSOR) tablet 2 5 mg Given 09/24/2011 7:56 AM ICEBOX MAN 25 mg 25 mg, Oral, 2 TIMES DAILY, First dose on 09/22/11 at 0200, Until Discontinued Given 09/23/2011 8:15 PM ICEBOX MAN 25 mg Given 09/23/2011 9:56 AM ICEBOX MAN 25 mg Given 09/22/2011 8:43 PM ICEBOX MAN 25 mg Given 09/22/2011 4:20 AM ICEBOX MAN 25 mg Milk of Magnesia Concentrate suspension 10 mL Given 09/23/2011 8:27 PM ICEBOX MAN 10 mL 10 mL, Oral, ONE TIME DAILY NEEDED, Starting on 09/22/11 at 0119, Until Fri09/24/11 at 1242, Constipation morphine sulfate variable dose injection 4 mg Given 09/22/2011 12:03 AM ICEBOX MAN 4 mg 4 mg, IV Push, EVERY 30 MINUTES NEEDED, 4 doses, Starting on 09/21/11 at 2250, Until Fri09/22/11 at 0131, Pain Given 09/21/2011 11:09 PM [facility] 4 mg nitroglycerin (NITROSTAT) tablet 0.4 mg Given 09/22/2011 12:10 AM [facility] 0.4 mg 0.4 mg, Sublingual, ONCE, 1 dose, On 09/22/11 at 0030 omeprazole (PRILOSEC) capsule 40 mg Given 09/24/2011 6:29 AM [facility] 40 mg 40 mg, Oral, 2 TIMES DAILY BEFORE MEALS, First dose on Fri09/22/11 at 0700, Until Discontinued Given 09/23/2011 5:39 PM [facility] 40 mg Given 09/23/2011 6:58 AM [facility] 40 mg Given 09/22/2011 4:40 PM [facility] 40 mg Given 09/22/2011 6:40 AM [facility] 40 mg ondansetron (ZOFRAN) injection 4 mg Given 09/21/2011 11:10 PM [facility] 4 mg 4 mg, IV Push, EVERY 1 HOUR NEEDED, 3 doses, Starting on 09/21/11 at 2250, Until Fri09/22/11 at 0131, Nausea, Vomiting polyethylene glycol 3350 (GLYCOLAX, Given 09/24/2011 7:56 AM [facility] 1 Packet MIRALAX) packet 1 Packet 1 Packet, Oral, ONCE DAILY, First dose on 09/23/11 at 1130, Until Discontinued Given 09/23/2011 11:50 AM [facility] 1 Packet sodium chloride 0.45 % (1/2 NS) solution New Bag 09/24/2011 6:01 AM [facility] 125 mL/hr Intravenous, at 125 mL/hr, CONTINUOUS, Starting on Fri09/22/11 at 1630, Until Fri09/24/11 at 1242 New Bag 09/23/2011 10:00 PM [facility] 125 mL/hr New Bag 09/23/2011 3:05 PM [facility] 125 mL/hr New Bag 09/23/2011 7:31 AM [facility] 1,000 mL 125 mL/hr New Bag 09/23/2011 12:00 AM [facility] 1,000 mL 125 mL/hr New Bag 09/22/2011 4:30 PM [facility] 125 mL/hr sodium chloride 0.9 % (NS) injection 3 m L Given 09/21/2011 11:10 PM [facility] 3 mL 3 mL, IV Flush, EVERY 8 HOURS, First dose on 09/21/11 at 2300, Until Discontinued sodium chloride 0.9 % (NS) injection 3-1 0 mL Given 09/24/2011 7:56 AM [facility] 10 mL 3-10 mL, IV Flush, EVERY 8 HOURS (RT), First dose on Fri09/22/11 at 0600, Until Discontinued Given 09/22/2011 8:00 AM [facility] 3 mL Given 09/22/2011 5:29 AM [facility] 3 mL documented in this encounter Discontinued Medications Medication Sig Discontinue Reason Start Date End Date lisinopril (PRINIVIL, Take 1 Tab by mouth 09/17/2011 09/23/2011 ZESTRIL) 10 MG tablet two times a day. documented as of this encounter Historical Medications This list may reflect changes made after this encounter. Medication Sig Dispensed Refills Start Date End Date HYDROcodone-acetamino Take 1 Tab by mouth 0 10/09/2011 phen (NORCO) 10-325 every six hours as MG per tablet needed. Acetaminophen should be limited to 4000 mg per day. added in this encounter Active and Recently Administered Medications Times are shown in [facility]. Scheduled Medication Order 09/22/2011 09/23/2011 09/24/2011 aspirin chewable tablet 81 mg (CANCELED) 09 (Given - Provider: Jenniffer Michael RN) 0838 (Given - Provider: Mirlande Cartwright RN) 0755 (Given - Provider: Aline Ochoa RN) 81 mg, Oral, ONCE DAILY, First dose on 09/22/11 at 0800, Until Discontinued docusate sodium (COLACE) capsule 100 mg (CANCELED) 090 7 (Given - Provider: Jenniffer Michael RN)2042 (Given - Provider: Careml Ferguson) 0838 (Given - Provider: Mirlande Cartwright RN)2023 (Given - Provider: Ariadne Poon) 0755 (Given - Provider: Aline Ochoa RN) 100 mg, Oral, 2 TIMES DAILY, First dose on 09/22/11 at 0800, Until Discontinued enoxaparin (LOVENOX) injection 40 mg (CANCELED) 09 ( Given - Provider: Jenniffer Michael RN) 0838 (Given - Provider: Mirlande Cartwright RN) 0756 (Given - Provider: Aline Ochoa RN) 40 mg, Subcutaneous, ONCE DAILY, First d ose on 09/22/11 at 0800, Until Discontinued HYDROcodone-acetaminophen (NORCO) 10-325 MG per tablet 2 Tab (COMPLETED) 0850 (Given by Other - Provider: Jenniffer Michael RN - Comment: pt took from his own supply before they were sent to pharmacy) 2 Tab, Oral, ONCE, 1 dose, 09/22/11 at 0930 insulin aspart (NOVOLOG) injection (CANCELED) 0850 (No t Given - Provider: Jenniffer Michael RN - Reason: Patient/Family refused)1200 (Not Given - Provider: Jenniffer Michael RN - Reason: Patient/Family refused) 0839 (Hold Single Dose - Provider: Mirlande Cartwright RN - Reason: Other - Comment: npo)1143 (Given - Provider: Mirlande Cartwright RN)1738 (Given - Provider: Ariadne Poon) 0711 (Given - Provider: Jovanni Nevarez RN) Subcutaneous, WITH MEALS AND BEDTIME, Fi rst dose on 09/22/11 at 0800, Until Discontinued 174 (Not Given - Provider: Carmel espinoza - Reason: Patient/Family refused - Comment: See if metformin will work first)2103 (Not Given - Provider: Carmel Ferguson - Reason: Order Parameters not met - Comment: BS 138) 2108 (Not Given - Provider: Ariadne Poon - Reason: Order Parameters not met) magnesium citrate (CITROMA) oral solution 150 mL (COMPLETED) 1800 (Given - Provider: Ariadne Poon) 150 mL, Oral, ONCE, 1 dose, 09/23/11 at 1730 metFORMIN (GLUCOPHAGE) tablet 1,000 mg (CANCELED) 1740 (Given - Provider: Carmel Ferguson) 0958 (Hold Single Dose - Provider: Trena Cartwright RN - Reason: Other - Comment: NPO)1145 (Given - Provider: Mirlande Cartwright RN)173 (Given - Provider: Ariadne Poon) 0745 (Given - Provider: Aline mathias RN) 1,000 mg, Oral, 2 TIMES DAILY WITH MEALS , First dose on 09/22/11 at 1730, Until Discontinued metoprolol tartrate (LOPRESSOR) tablet 25 mg 0420 (Giv en - Provider: Joel Stewart - Comment: BP= 144/81 P= 80)2042 (Given - Provider: Carmel Ferguson) 0956 (Given - Provider: Mirlande jimenez RN)2014 (Given - Provider: Ariadne Poon) 0756 (Given - Provider: Aline mathias RN) 25 mg, Oral, 2 TIMES DAILY, First dose o n 09/22/11 at 0200, Until Discontinued nitroglycerin (NITROSTAT) tablet 0.4 mg (COMPLETED) 00 10 (Given - Provider: Susy Sheridan, AUSTYN) 0.4 mg, Sublingual, ONCE, 1 dose, 09/22/11 at 0030 omeprazole (PRILOSEC) capsule 40 mg (CANCELED) 0640 (G natien - Provider: Joel Stewart)1640 (Given - Provider: Carmel Ferguson) 0658 (Given - Provider: Joel Stewart)1739 (Given - Provider: Ariadne Poon) 0629 (Given - Provider: Jovanni Nevarez RN) 40 mg, Oral, 2 TIMES DAILY BEFORE MEALS, First dose on 09/22/11 at 0700, Until Discontinued polyethylene glycol 3350 (GLYCOLAX, MIRALAX) packet 1 Packet (CANCELED) 1150 (Given - Provider: Mirlande Cartwright RN) 0756 (Given - Provider: Aline Ochoa RN) 1 Packet, Oral, ONCE DAILY, First dose o n 09/23/11 at 1130, Until Discontinued sodium chloride 0.9 % (NS) injection 3-10 mL (CANCELED ) 0529 (Given - Provider: Joel Stewart)0800 (Given - Provider: Jenniffer Michael RN)1539 (Not Given - Provider: Jenniffer Michael RN - Reason: Other)1630 (Not Given - Provider: Carmel Ferguson - Reason: Other) 0018 (Not Given - Provider: Joel Stewart - Reason: Order Parameters not met)0956 (Hold Single Dose - Provider: Mirlande Cartwright RN - Reason: Other - Comment: infusing) 0025 (Not Given - Provider: Jovanni Nevarez RN - Reason: Other - Comment: IV infusing)0756 (Given - Provider: Aline Ochoa RN - Comment: infusing) 3-10 mL, IV Flush, EVERY 8 HOURS (RT), F irst dose on 09/22/11 at 0600, Until Discontinued 1731 (Not Given - Provider: Ariadne Poon - Reason: Other - Comment: Iv infusing) Continuous Medication Order 09/22/2011 09/23/2011 09/24/2011 sodium chloride 0.45 % (1/2 NS) solution (CANCELED) 16 30 (New Bag - Provider: Carmel Ferguson) 0000 (New Bag - Provider: Joel perez)0731 (New Bag - Provider: Joel Stewart)1505 (New Bag - Provider: Joellen Rodriguez)2200 (New Bag - Provider: Ariadne Poon) 0601 (New Bag - Provider: Jovanni Nevarez RN) Intravenous, at 125 mL/hr, CONTINUOUS, S tarting 09/22/11 at 1630, Until Discontinued PRN Medication Order 09/22/2011 09/23/2011 09/24/2011 bisacodyl (DULCOLAX) suppository 10 mg (CANCELED) 1150 (Given - Provider: Mirlande Cartwright RN)2026 (Given - Provider: Ariadne Poon) 10 mg, Rectal, 2 TIMES DAILY NEEDED, Starting 09/22/11 at 0119, Until Discontinued, Constipation HYDROcodone-acetaminophen (LORTAB) 7.5-5 00 MG/15ML oral solution 7.5 mg (CANCELED) 0143 (See Alternative - Provider: Tyron Delarosa) 0047 (Given - Provider: Joel Stewart)0841 (Given - Provider: Mirlande Cartwright RN)1338 (Given - Provider: Mirlande Cartwright RN) 15 mL = 7.5 mg, Oral, EVERY 4 HOURS N EEDED, Starting 09/22/11 at 0119, Until Discontinued, Pain, moderate pain HYDROcodone-acetaminophen (NORCO) 10-325 MG per tablet 1 Tab (CANCELED) 0850 (Not Given - Provider: Jenniffer Michael RN - Reason: Other - Comment: see other order for same drug)1145 (Given - Provider: Radha Mcpherson RN)1450 (Given - Provider: eJnniffer Michael RN)1743 (Given - Provider: Carmel Ferguson) 0420 (Given - Provider: Joel Stewart)2014 (Given - Provider: Ariadne Poon) 1 Tab, Oral, EVERY 3 HOURS NEEDED, St arting 09/22/11 at 1200, Until Discontinued, Pain 2043 (Given - Provider: Carmel Ferguson) HYDROcodone-acetaminophen (VICODIN, LORT AB) 5-500 MG per tablet 1-2 Tab (CANCELED) 0143 (Given - Provider: Tyron Delarosa) 0047 (See Alte rnative - Provider: Joel Stewart)0841 (See Alternative - Provider: Mirlande Cartwright RN)1338 (See Alternative - Provider: Mirlande Cartwright RN) 1-2 Tab, Oral, EVERY 4 HOURS NEEDED, Starting 09/22/11 at 0119, Until Discontinued, Pain, moderate pain HYDROmorphone (DILAUDID) injection 0.5-1 mg (CANCELED) 0420 (Given - Provider: Joel Stewart) 0.5-1 mg, IV Push, EVERY 2 HOURS NEED ED, Starting 09/22/11 at 0119, Until Discontinued, Pain, severe pain HYDROmorphone (DILAUDID) injection 1 mg (CANCELED) 205 0 (Given - Provider: Carmel Ferguson) 1 mg, IV Push, EVERY 2 HOURS NEEDED, Starting 09/22/11 at 1613, Until Discontinued, Pain Milk of Magnesia Concentrate suspension 10 mL (CANCELED) 2026 (Given - Provider: Ariadne Poon) 10 mL, Oral, 1 TIME DAILY NEEDED, Sta rting 09/22/11 at 0119, Until Discontinued, Constipation morphine sulfate variable dose injection 4 mg (CANCELE D) 0003 (Given - Provider: Susy Sheridan RN) 4 mg, IV Push, EVERY 30 MINUTES NEEDE D, 4 doses, Starting 09/21/11 at 2250, Until Discontinued, Pain No Frequency Medication Order 09/22/2011 09/23/2011 09/24/2011 ASPIRIN 81 MG OR CHEW (COMPLETED) 0003 (Given - Provider: Susy Sheridan, RN) 1 dose, Starting 09/21/11 at 2357, Until 09/22/11 at 000 3 documented in this encounter Orders Medications Ordered That Might Not Have Count Last Ord ered Date First Ordered Date Been Administered aluminum-magnesium hydroxide (MAALOX) oral 1 09/22 suspension 30 mL LORazepam (ATIVAN) tablet 0.5-1 mg 1 09/22/2011 metFORMIN (GLUCOPHAGE) tablet 1,000 mg 1 1 nitroglycerin (NITROSTAT) tablet 0.4 mg 1 09/22/20 11 ondansetron (ZOFRAN ODT) disintegrating 1 09/22/20 11 tablet 4 mg ondansetron (ZOFRAN) injection 4 mg 1 09/22/2011 sodium chloride 0.9 % (NS) injection 3-10 1 2010 mL sodium chloride 0.9 % (NS) injection 3 mL 1 2010 Lab Orders Without Results Count Last Ordered Date Fir st Ordered Date CREATININE 1 09/22/2011 Nursing Count Last Ordered Date First Ordered Date SALINE LOCK IV 1 09/21/2011 documented in this encounter Care Teams Form Worker Relationship Specialty Start Date End Date Richardson Graham MD PCP - General Family Medicine 09/17/11 10/10/112023 [address] [id number] documented as of this encounter
--- OUTSIDE RECORDS SUMMARY | 2022-09-20 12:30 | XMS_ITS | Encounter Summary ---
:1950 Author Organization [employer] Address [address] [address] Phone Care Team Providers Name Role Phone Richardson Graham MD Primary Care Provider Reason for Visit Reason Comments Consult Encounter Details Date Type Department Care Team Description 09/17/2011 Office Visit [facility] Richard Yusuf, Riley t pain ([facility] MD Dx) [address] [place] [address] [place] [id number] [address] [phone] [place] [address] Social History Tobacco Use Types Packs/Day Years Used Date Smoking Tobacco: Never Smokeless Tobacco: Never Alcohol Use Standard Drinks/Week Comments Not Asked 0 (1 standard drink = 0.6 oz pure alcoho l) Sex Assigned at Date Recorded Not on file documented as of this encounter Last Filed Vital Signs Vital Sign Reading Time Taken Comments Blood Pressure 153/89 09/17/2011 2:17 PM (from Extend ed [facility] Vitals) Pulse 84 09/17/2011 2:12 PM [facility] Temperature - - Respiratory Rate 16 09/17/2011 2:12 PM [facility] Oxygen Saturation - - Inhaled Oxygen - - Concentration Weight 121.2 kg (267 lb 1.6 09/17/2011 2:12 PM oz) [facility] Height 177.8 cm (5' 10) 09/17/2011 2:12 PM [facility] Body Mass Index 38.32 09/17/2011 2:12 PM [facility] documented in this encounter Progress Notes Richard Yusuf MD - 09/17/2011 2:56 PM CST This note has been dictated. [facility] documented in this encounter Consult Notes Richard Yusuf MD - 09/17/2011 4:[address] [facility] Patient Name: ALINE PABON Date of Service: 09/17/2011 : 1950 Age: 61Y Sex: M DC Site MRN: Patient Loc/Room #: BRBMCCC/ Provider: Richard Yusuf MD, Cardiology CONSULTATION SITE: [facility] REQUESTED BY: Richardson Graham MD Mr. Pabon is a pleasant 61-year-old gentleman seen in consultation for Dr. Richardson Graham. Mr. Pabon has noticed increasing shortness of breath with exertion. He also has noticed some chest discomfort that will occur when he exercises and is relieved with rest. The discomfort does indeed sound concerning for angina, being a retrosternal pressure sensation. He has not had this sensation at rest. He doesalso relate a history of a pounding heart when he exercises but he does not really describe significant palpitations. He has not had any episodes of syncope. He does have risk factors for coronary disease to include significant obesity. He also has type 2 diabetes and a recent diagnosis of hypertension. PAST MEDICAL HISTORY 1. Hypertension. 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 2. Type 2 diabetes for the past 3 years, reasonably well controlled on metformin. 3. History of sleep apnea. He previously tried a CPAP mask but found it intolerable. 4. Five bilateral knee arthroscopies. SOCIAL HISTORY: Patient is , drinks alcohol occasionally, but never to excess. Does not smokecigarettes. 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 ALLERGIES: AMOXICILLIN. FAMILY HISTORY: Father from complications of a heart attack. He had a long history of Parkinson's, at age 85. Mother at age 84, had leukemia. Two brothers, one had some arrhythmia but noother coronary disease that he knows of. Two sisters are healthy. No children. REVIEW OF SYSTEMS: Complete and otherwise unremarkable except as noted above. Examination demonstrates a blood pressure currently at 150/90. Heart rate is 85. Respiratory rate is 18. General - this is an obese pleasant gentleman who is in no apparent distress. HEENT is unremarkable. Neck is supple. Lungs are clear to auscultation. Heart exam demonstrates the heart rhythm to be regular. I do not appreciate other murmurs or rubs. The carotid upstroke was normal. No carotid bruits were noted. Femoral pulses and distal pulses are 2+. Abdomen - obese abdomen. The abdomen is nontender. Extremities demonstrate no clubbing, cyanosis, or petechiae. There is no edema. Neurologic exam - patient alert and oriented, generally nonfocal. Psych - patient appears alert and mentally stable. IMPRESSION: Aline certainly has a concerning history of chest discomfort with exertion. He does havemultiple risk factors for coronary disease and at this point I believe we need to pursue an exercisemyocardial perfusion study. Should this study show significant ischemia, then I would move toward left heart catheterization. Thank you for allowing me to see Aline in consultation. I will be in touch after the results of his stress study are known. ELECTRONICALLY SIGNED Richard Yusuf MD [facility] Cardiology cc: Richardson Graham MD /MEGordon Job ID: [id number] /la Document ID: [id number] [facility] documented in this encounter Plan of Treatment Not on filedocumented as of this encounter Results NM MYOCARDIAL SPECT MULTI STUDY (09/19/2011 9:20 AM [facility]) Anatomical Region Laterality Modality Heart Nuclear Medicine Specimen (Source) Anatomical Location Collection Method / Collectio n Time Received Time / Laterality Volume Impressions 09/19/2011 3:27 PM [facility] ?? 1. ??Probably normal exercise myocardial perfusion study with no clear evidence for myocardial ischemia. ??Ther e is apical thinning but this could be a normal variant. ??Clinical correlat ion would be necessary. 2. ??Normal left ventricular systolic fu nction with ejection fraction of 68%. ?? 3. ??Slight decreased exercise tolerance . Narrative 09/19/2011 3:27 PM [facility] MYOCARDIAL PERFUSION IMAGING INDICATION: ??Mr. Pabon is a 61-year-ol d gentleman with chest pain. ?? PROCEDURE: ??Baseline 12-lead electrocar diogram demonstrates normal sinus rhythm, axis of +75, and is normal. ??Br uce protocol. ??Exercise time 7 minutes 10 seconds, achieving 8 METs of work. ??Resting heart rate was 72 and peak heart rate was 157, 98% of age- predicted max. ??Resting blood pressure was 150/90 and peak was 230/74. ??Test was terminated secondary to general fatigue and shortness of breath. ?? RESULTS: ??The patient's heart rate and blood pressure mark appropriately. ?? Exercise capacity is decreased consideri ng age. ??Analysis of the electrocardiogram failed to demonstrate significant ST segment depression. No arrhythmias. REST DOSE: ??11.9 mCi Tc-99m sestamibi. STRESS DOSE: ??42.8 mCi Tc-99m sestamibi . PERFUSION IMAGING: ??Analysis of the str ess and delayed scan demonstrates some apical thinning but no clear eviden ce for myocardial ischemia. ??Gated wall motion study demonstrates normal co ntractility in all wall segments. ?? Ejection fraction 68%. Procedure Note Richard Yusuf MD - 09/19/2011Formatti ng of this note might be different from the original. MYOCARDIAL PERFUSION IMAGING INDICATION: Mr. Pabon is a 61-year-old gentleman with chest pain. PROCEDURE: Baseline 12-lead electrocardi ogram demonstrates normal sinus rhythm, axis of +75, and is normal. Joel protocol. Exercise time 7 minutes 10 seconds, achieving 8 METs of work. Resting heart rate was 72 and peak heart rate was 157, 98% of age- predicted max. Resting blood pressure was 150/90 and peak was 230/74. Test was terminated secondary to general fatigue and shortness of breath. RESULTS: The patient's heart rate and bl ood pressure mark appropriately. Exercise capacity is decreased considering age. Analysis of the electrocardiogram failed to demonstrate significant ST segment depression. No arrhythmias. REST DOSE: 11.9 mCi Tc-99m sestamibi. STRESS DOSE: 42.8 mCi Tc-99m sestamibi. PERFUSION IMAGING: Analysis of the stres s and delayed scan demonstrates some apical thinning but no clear evidence for myocardial ischemia. Gated wall motion study demonstrates normal contractility in all wall segments. Ejection fraction 68%. IMPRESSION: 1. Probably normal exercise myocardial p erfusion study with no clear evidence for myocardial ischemia. There is apical thinning but this could be a normal variant. Clinical correlation would be necessary. 2. Normal left ventricular systolic func tion with ejection fraction of 68%. 3. Slight decreased exercise tolerance. Richard Yusuf MD EC NM ORDERABLES documented in this encounter Visit Diagnoses Diagnosis Chest pain - Primary Chest pain, unspecified Chest pain Chest pain, unspecified Chest pain Chest pain, unspecified documented in this encounter Discontinued Medications Medication Sig Discontinue Reason Start Date End Date lisinopril (PRINIVIL, Take 1 Tab by mouth 09/10/2011 09/17/2011 ZESTRIL) 10 MG tablet one time a day. sennosides-docusate Take 2 Tabs by mouth Other 09/10/2011 09/17/2011 sodium (SENOKOT-S) one time a day as 8.6-50 MG per tablet needed for Constipation (takes 1 or 2 tabs daily as needed). augmented betamethasone Apply topically one Other 09/10/2011 09/17/2011 dipropionate time a day as needed. (DIPROLENE) 0.05 % ointment documented as of this encounter Historical Medications This list may reflect changes made after this encounter. Medication Sig Dispensed Refills Start Date End Date Zinc 50 MG TABS Take 1 Tab by mouth 30 Tab 0 09/17/2011 as needed. ascorbic acid (VITAMIN C) Take 1 Tab by mouth 0 1 11/18/2010 09/15/2012 500 MG tablet as needed (cold sysmptoms). betamethasone Apply topically as 0 09/17/201106/2012 dipropionate 0.05 % cream needed for Other. Apply sparingly. lisinopril (PRINIVIL, Take 1 Tab by mouth 0 09/1709/23/2011 ZESTRIL) 10 MG tablet two times a day. docusate sodium (COLACE) 1-2 tablet PO daily 0 10/02/2011 50 MG capsule added in this encounter Orders EKG Orders Without Results Count Last Ordered Date Fir st Ordered Date CARDIOLITE STRESS TEST 1 09/19/2011 documented in this encounter Care Teams In Store Marketing Associate Relationship Specialty Start Date End Date Richardson Graham MD PCP - General Family Medicine 09/17/11 10/10/112023 [address] [address] documented as of this encounter
--- OUTSIDE RECORDS SUMMARY | 2022-09-20 12:30 | XMS_ITS | Encounter Summary ---
:1950 Author Organization [employer] Address [address] [address] Phone Care Team Providers Name Role Phone Richardson Graham MD Primary Care Provider Reason for Visit Diagnostic (Routine) - Closed Specialty Diagnoses / Procedures Referred By Contact Refer red To Contact Radiology Diagnoses Chest Pain -[facility] OUTREACH [facility] Radiology Nm Procedures NM MYOCARDIAL DAY 2 INJ 3 [address] [place] [address] [place] [address] Phone: Referral ID Status Reason Start Date Expiration Date Visits Requ ested Visits Authorized [id number] Closed 09/19/2011 09/19/2011 1 1 Encounter Details Date Type Department Care Team Description 09/19/2011 Hospital Encounter [facility] Radiology Alicia Yusuf MD Chest pain Nuclear Medicine [address] [address] [facility] [place] [id number] (Wo rk) Social History Tobacco Use Types [...] Discharged documented in this encounter Progress Notes Richard Yusuf MD - 10/17/2011 2:16 PM CST [employer] documented in this encounter Plan of Treatment Not on filedocumented as of this encounter Procedures Procedure Name Priority Date/Time Associated Comments Diagnosis NM MYOCARDIAL SPECT Routine 09/19/2011 9:20 AM Chest pain Re sults for this MULTI STUDY REBEAMER procedure are i n the results section. documented in this encounter Results NM MYOCARDIAL SPECT MULTI STUDY (09/19/2011 9:20 AM REBEAMER) Anatomical Region Laterality Modality Heart Nuclear Medicine Specimen (Source) Anatomical Location Collection Method / Collectio n Time Received Time / Laterality Volume Impressions 09/19/2011 3:27 PM REBEAMER ?? 1. ??Probably normal exercise myocardial perfusion study with no clear evidence for myocardial ischemia. ??Ther e is apical thinning but this could be a normal variant. ??Clinical correlat ion would be necessary. 2. ??Normal left ventricular systolic fu nction with ejection fraction of 68%. ?? 3. ??Slight decreased exercise tolerance . Narrative 09/19/2011 3:27 PM REBEAMER MYOCARDIAL PERFUSION IMAGING INDICATION: ??Mr. Pabon is [...] this encounter Visit Diagnoses Diagnosis Chest pain Chest pain, unspecified Chest pain Chest pain, unspecified documented in this encounter Administered Medications Inactive Administered Medications Medication Order MAR Action Action Date Dose Rate Site sodium chloride 0.9 % (NS) Given 09/19/2011 7:25 AM REBEAMER 10 mL injection 10 mL 10 mL, IV Flush, ONCE, 1 dose, On Crista 09/19/11 at 0800 sodium chloride 0.9 % (NS) injection 10 mL Given 09/19/2011 9:15 AM REBEAMER 10 mL 10 mL, IV Flush, ONCE, 1 dose, On Crista 09/19/11 at 0930 Tc99m Cardiolite 11 ramona Curie Given 09/19/2011 7:25 AM REBEAMER 11.9 millicuries 11 millicurie, IV Push, ONCE, 1 dose, On Crista 09/19/11 at 0800 Tc99m Cardiolite 40 ramona Curie Given 09/19/2011 9:15 AM REBEAMER 42.8 millicuries 40 millicurie, IV Push, ONCE, 1 dose, On Crista 09/19/11 at 0930 documented in this encounter Care Teams Investigation Manager Relationship Specialty Start Date End Date Richardson Graham MD PCP - General Family Medicine 09/17/11 10/10/112023 [address] [id number] documented as of this encounter
--- OUTSIDE RECORDS SUMMARY | 2022-09-20 12:30 | XMS_ITS | Encounter Summary ---
:1950 Author Organization [facility] [employer] [facility] Address [address] [place] [address] Phone Care Team Providers Name Role Phone Richardson Graham MD Primary Care Provider Encounter Details Date Type Department Care Team Description 09/19/2011 Hospital Encounter [facility] Richard Yusuf MD Chest pain Center Echo [address] [place] [address] [place], [place] [address] (Wo rk) Social History Tobacco Use Types [...] Means Destination Discharged documented in this encounter Consult Notes Richard Yusuf MD - 09/19/2011 4:08 PM CST [facility] Patient Name: ALINE PABON Date of Service: 09/19/2011 : 1950 Age: 61Y Sex: M DC Site MRN: Patient Loc/Room #: BRSJECHO/ Provider: Richard Yusuf MD, Cardiology CONSULTATION SITE: [facility] Mr. Pabon underwent his nuclear stress test today. He had decreased exercise tolerance considering his age, probably secondary to deconditioning. The images themselves did not appear to show a significant area of myocardial ischemia and his heart function was normal. When questioned today he admits to having significant discomfort last night for which he took multiple Tums and indeed some of his current symptoms may indeed be GI related, as compared to ischemic. I have therefore recommended that hestart on Prilosec [id number] and see if this results in improvement in his symptoms. I have also told him that should his symptoms not improve after GI evaluation that occasionally these nuclear s tress tests can be false negatives and at that point one might consider left heart catheterization. Patient will follow up Dr. Graham. We will see him on a p.r.n. basis. ELECTRONICALLY SIGNED Richard Yusuf MD [facility] Cardiology cc: /MARION Job ID: [id number] Document ID: [id number] FARMER documented in this encounter Plan of Treatment Not on filedocumented as of this encounter Procedures Procedure Name Priority Date/Time Associated Comments Diagnosis NM MYOCARDIAL SPECT Routine 09/19/2011 9:20 AM Chest pain Re sults for this MULTI STUDY DUCK FARMER procedure are i n the results section. documented in this encounter Visit Diagnoses Diagnosis Chest pain Chest pain, unspecified documented in this encounter Orders EKG Orders Without Results Count Last Ordered Date Fir st Ordered Date CARDIOLITE STRESS TEST 1 09/19/2011 documented in this encounter Care Teams Baseboard Heating Installer Relationship Specialty Start Date End Date Richardson Graham MD PCP - General Family Medicine 09/17/11 10/10/112023 [address] [id number] documented as of this encounter
--- OUTSIDE RECORDS SUMMARY | 2022-09-20 12:30 | XMS_ITS | Encounter Summary ---
:1950 Author Organization [employer] Address [address] [address] Phone Care Team Providers Name Role Phone Richardson Graham MD Primary Care Provider Reason for Visit Reason Comments Chest Pain neg cardiolite stress test y esterday Fever Encounter Details Date Type Department Care Team Description 09/20/2011 Office Visit [facility] Richardson Graham MD Chest pain (Primary Dx); [facility] [place] [address] Abdominal pain; [address] [facility] [address] Screening PSA (prostate specific antigen ); [place] Routine general medical exam ination at a health care facility; [place] [phone] Other malaise and fatigue [phone] Social History Tobacco Use Types Packs/Day Years Used Date Smoking Tobacco: Never Smokeless Tobacco: Never Alcohol Use Standard Drinks/Week Comments Not Asked 0 (1 standard drink = 0.6 oz pure alcoho l) Sex Assigned at Date Recorded Not on file documented as of this encounter Last Filed Vital Signs Vital Sign Reading Time Taken Comments Blood Pressure 136/80 09/20/2011 9:36 AM VENDOR REPRESENTATIVES Pulse 84 09/20/2011 9:36 AM VENDOR REPRESENTATIVES Temperature 37.2 ??C (99 ??F) 09/20/2011 9:36 AM VENDOR REPRESENTATIVES Respiratory Rate - - Oxygen Saturation - - Inhaled Oxygen Concentration - - Weight 120.2 kg (265 lb) 09/20/2011 9:36 AM VENDOR REPRESENTATIVES Height 177.8 cm (5' 10) 09/20/2011 9:36 AM VENDOR REPRESENTATIVES Body Mass Index 38.02 09/20/2011 9:36 AM VENDOR REPRESENTATIVES documented in this encounter Ordered Prescriptions Prescription Sig Dispensed Refills Start Date End Date omeprazole magnesium Take 1 Tab by mouth 90 Tab 3 201010/17/2011 delayed release one time a day. (PRILOSEC OTC) 20 MG Tablet should be tablet swallowed whole; do not crush or chew. documented in this encounter Progress Notes Richardson Graham MD - 09/23/2011 3:39 AM CST [facility] Patient Name: ALINE PABON Date of Service: 09/20/2011 : 1950 Age: 61Y Sex: M DC Site MRN: Patient Loc/Room #: [facility] FP/ Provider: Richardson Graham MD, Family Practice OFFICE NOTE SITE: [facility] PROBLEMS: 1. Fever. 2. Epigastric pain. SUBJECTIVE: Arsh was in the clinic recently, had an extensive workup and a well male exam. He has diabetes. I reviewed all of this with him, including my letter and his lab work. Unfortunately, his sedrate and PSA were not done and this is being done. Because of chest pain, he went on to a Cardiolite stress test that was normal. He noted on that he was having some chest heaviness and discomfort. He went in for the stress test on . He felt actually better during the stress test but since that time has felt poorly. He has had discomfort in the epigastrium and lower chest. It is a dull ache. At times it is quite severe. He had a fever last night up to 101; it is 99 now. He has felt warm and sweaty and even chilled some. There is no other source of the fever. No dysuria or frequency. No nausea, vomiting or diarrhea. No sorethroat or earache or cough. He does state when he takes a deep breath, it does hurt somewhat across the lower abdomen. EXAM: The patient is alert, comfortable, a little anxious about this illness. Vitals - show temperature of 99, pulse 84, blood pressure 136/80. HEENT - TMs normal. Nose/throat normal. Nodes - negative.Lungs - clear. Heart - 80 and regular. Abdomen - soft. He is tender in the epigastrium but nontenderover the remainder of the abdomen. There is no CVA tenderness. DIAGNOSTIC DATA: Chest x-ray is normal although he does not take a good, deep breath. I asked him togo back and he did take a good breath on the second attempt. ASSESSMENT/PLAN: Fever and upper abdominal pain. I am unsure of the etiology. I explained it may be 2 separate issues that he has some gastritis and he is just started Prilosec OTC 10 mg, 1 daily. I have asked him to go to either omeprazole 20 mg daily or take Prilosec OTC 2 b.i.d., 1/2 hour before a meal. If he is not better in the next several days, we will set up an endoscopy. I am concerned aboutthe risk of pancreatitis that might cause a fever and this discomfort. We will do an amylase, lipase, CBC and sed rate and have a CT scan of the abdomen this afternoon. I talked about options; observing versus further diagnostics but he said the pain was severe enough, he really thinks he should proceed with this and we will set this up for him and contact him with the results. I explained that it isvery unlikely that this is heart, although Dr. Yusuf did indicate there is on a rare occasion, a false negative Cardiolite stress test. If he has ongoing pain with exertion, then further workup from a heart standpoint but felt it was very unlikely to be cardiac source of his pain. If he suddenly hassevere pain or black stools, he will be seen in the emergency room. ELECTRONICALLY SIGNED Richardson Graham MD [facility] cc: /[facility] Job ID: [id number] /[id number] Document ID: [id number] OR REPRESENTATIVES Richardson Graham MD - 09/20/2011 1:08 PM CST This note has been dictated. OR REPRESENTATIVES Amy Sawyer LPN - 09/20/2011 9:36 AM CST Depression ([place]) Screening Questions 1. During the past month, have you often been bothered by feeling down, depressed, or hopeless? Not at all 2. During the past month, have you often been bothered by little interest or pleasure in doing things? Not at all Fall Risk No OR REPRESENTATIVES documented in this encounter Plan of Treatment Not on filedocumented as of this encounter Procedures Procedure Name Priority Date/Time Associated Diagnosis Comme nts DIFFERENTIAL 09/20/2011 11:13 AM Abdominal pain Result s for this VENDOR REPRESENTATIVES procedure are i n the results section. HEMOGRAM/DIFF Routine 09/20/2011 11:13 AM Abdominal pain Resul ts for this VENDOR REPRESENTATIVES procedure are i n the results section. SED RATE Routine 09/20/2011 11:13 AM Other malaise and Res ults for this VENDOR REPRESENTATIVES fatigue procedure are i n the results section. LIPASE Routine 09/20/2011 11:13 AM Abdominal pain Result s for this VENDOR REPRESENTATIVES procedure are i n the results section. PSA DIAGNOSTIC Routine 09/20/2011 11:13 AM Routine general Res ults for this VENDOR REPRESENTATIVES medical examination at [facility] are in a health care facility the r esults section. AMYLASE Routine 09/20/2011 11:13 AM Abdominal pain Result s for this VENDOR REPRESENTATIVES procedure are i n the results section. documented in this encounter Results CT ABDOMEN W CONTRAST (09/20/2011 4:21 PM VENDOR REPRESENTATIVES) Anatomical Region Laterality Modality Abdomen, Pelvis Computed Tomography Specimen (Source) Anatomical Location Collection Method / Collectio n Time Received Time / Laterality Volume Impressions 09/23/2011 11:17 AM VENDOR REPRESENTATIVES ??Acute pancreatitis. ??No evidence for focal fluid collection or pseudocyst formation. ?? Narrative 09/23/2011 11:[address] ABDOMEN WITH INTRAVENOUS CONTRAST INDICATION: ??Acute [...] ?? Procedure Note Rob Austin MD - 09/23/2011Forma tting of this note might be different [...] formation. Richardson Graham MD EC CT ORDERABLES (ABNORMAL) DIFFERENTIAL (09/20/2011 11:13 AM VENDOR REPRESENTATIVES) Patholo gist Method Time Signature NEUTROPHIL % 82.1 (H) 40.0 - [place] 80.0 % LABORATORY LYMPHOCYTE % 9.6 (L) 10.0 - [place] 44.0 % LABORATORY MONOCYTE % 7.1 3.0 - 15.0 [place] % LABORATORY EOSINOPHIL % 1.0 0.0 - 8.0 [place] % LABORATORY BASOPHIL % 0.2 0.0 - 3.0 [place] % LABORATORY NEUTROPHIL ABS 7.5 1.7 - 8.5 [place] 109/L LABORATORY LYMPHOCYTE ABS 0.9 0.9 - 3.6 [place] 109/L LABORATORY MONOCYTE ABS 0.6 0.3 - 1.0 [place] 109/L LABORATORY EOSINOPHIL ABS 0.1 0.0 - 0.6 [place] 109/L LABORATORY BASOPHIL ABS 0.0 0.0 - 0.3 [place] 109/L LABORATORY Specimen Anatomical Collection Method Collection Time Receive d Time (Source) Location / / Volume Laterality 09/20/2011 11:13 09/20/2011 AM VENDOR REPRESENTATIVES 11:28 AM VENDOR REPRESENTATIVES Richardson Graham MD EC LABORATORY Performing Organization Address City/State/ZIP Code Phon e Number [place] [facility] (ABNORMAL) SED RATE (09/20/2011 11:13 AM VENDOR REPRESENTATIVES) P athologist Signature SED RATE 19 (H) 0 - 15 [place] mm/hr LABORATORY Specimen Anatomical Collection Method Collection Time Receive d Time (Source) Location / / Volume Laterality 09/20/2011 11:13 09/20/2011 AM VENDOR REPRESENTATIVES 11:28 AM VENDOR REPRESENTATIVES Richardson Graham MD EC HEMATOLOGY ORDERABLES Performing Organization Address City/State/ZIP Code Phon e Number [place] [facility] PSA (09/20/2011 11:13 AM VENDOR REPRESENTATIVES) P athologist Signature Prostate 0.41 0.00 - [place] Specific 4.50 ng/mL LABORATORY Antigen Specimen Anatomical Collection Method Collection Time Receive d Time (Source) Location / / Volume Laterality 09/20/2011 11:13 09/20/2011 AM VENDOR REPRESENTATIVES 11:28 AM VENDOR REPRESENTATIVES Richardson Graham MD EC CHEMISTRY ORDERABLES ABN Performing Organization Address City/State/ZIP Code Phon e Number [place] [facility] (ABNORMAL) LIPASE (09/20/2011 11:13 AM VENDOR REPRESENTATIVES) P athologist Signature LIPASE 94 (H) 13 - 60 [place] IU/L LABORATORY Specimen Anatomical Collection Method Collection Time Receive d Time (Source) Location / / Volume Laterality 09/20/2011 11:13 09/20/2011 AM VENDOR REPRESENTATIVES 11:28 AM VENDOR REPRESENTATIVES Richardson Graham MD EC CHEMISTRY ORDERABLES Performing Organization Address City/State/ZIP Code Phon e Number [place] [facility] AMYLASE (09/20/2011 11:13 AM VENDOR REPRESENTATIVES) P athologist Signature AMYLASE 67 30 - 105 [place] IU/L LABORATORY Specimen Anatomical Collection Method Collection Time Receive d Time (Source) Location / / Volume Laterality 09/20/2011 11:13 09/20/2011 AM VENDOR REPRESENTATIVES 11:28 AM VENDOR REPRESENTATIVES Richardson Graham MD EC CHEMISTRY ORDERABLES Performing Organization Address City/State/ZIP Code Phon e Number [place] [facility] HEMOGRAM/DIFF (09/20/2011 11:13 AM VENDOR REPRESENTATIVES) P athologist Signature WBC 9.1 3.4 - 10.7 [facility] 109/L LABORATORY RBC 5.02 4.20 - 5.90 [facility] 1012/L LABORATORY HGB 15.0 13.0 - 17.0 [facility] g/dL LABORATORY HCT 42.8 37.5 - 51.0 [facility] % LABORATORY MCV 85.2 82.0 - 99.0 [facility] fL LABORATORY MCH 29.9 27.0 - 34.0 [facility] pg LABORATORY MCHC 35.1 32.0 - 35.7 [facility] g/dL LABORATORY RDW 12.8 11.0 - 15.0 [facility] % LABORATORY PLT 155 150 - 400 [facility] 109/L LABORATORY Specimen Anatomical Collection Method Collection Time Receive d Time (Source) Location / / Volume Laterality 09/20/2011 11:13 09/20/2011 AM VENDOR REPRESENTATIVES 11:28 AM VENDOR REPRESENTATIVES Richardson Graham MD EC HEMATOLOGY ORDERABLES Performing Organization Address City/State/ZIP Code Phon e Number [facility] LABOR[facility] XR CHEST 2V (09/20/2011 10:24 AM VENDOR REPRESENTATIVES) Anatomical Region Laterality Modality Chest Radiographic Imaging Specimen (Source) Anatomical Location Collection Method / Collectio n Time Received Time / Laterality Volume Impressions 09/20/2011 12:14 PM VENDOR REPRESENTATIVES ??Shallow inspiration. ??Chest otherwis e unremarkable. Narrative 09/20/2011 12:14 PM VENDOR REPRESENTATIVES TWO VIEWS OF THE CHEST INDICATION: ??Fever. FINDINGS: ??Normal heart size. ??Shallow inspiration. ??Pulmonary vascularity within normal limits. ??No focal consoli dation or pleural effusion. ??Mild hypertrophic changes thoracic spine. ?? Procedure Note Rob Austin MD - 09/20/2011Forma tting of this note might be different from the original. TWO VIEWS OF THE CHEST INDICATION: Fever. FINDINGS: Normal heart size. Shallow ins piration. Pulmonary vascularity within normal limits. No focal consolidation or pleural effusion. Mild hypertrophic changes thoracic spine. IMPRESSION: Shallow inspiration. Chest o therwise unremarkable. Richardson Graham MD EC DIAGNOSTIC IMAGING ORDERA BLES documented in this encounter Visit Diagnoses Diagnosis Chest pain - Primary Chest pain, unspecified Abdominal pain Abdominal pain, unspecified site Screening PSA (prostate specific antigen ) Special screening for malignant neoplasm of prostate Routine general medical examination at a health care facility Other malaise and fatigue Abdominal pain Abdominal pain, unspecified site documented in this encounter Orders Lab Orders Without Results Count Last Ordered Date Fir st Ordered Date PSA 1 09/20/2011 SED RATE 1 09/20/2011 documented in this encounter Care Teams Administrative Receptionist Relationship Specialty Start Date End Date Richardson Graham MD PCP - General Family Medicine 09/17/11 10/10/112023 [address] [address] documented as of this encounter
--- OUTSIDE RECORDS SUMMARY | 2022-09-20 12:30 | XMS_ITS | Encounter Summary ---
:1950 Author Organization [employer] Address [address] [place] [address] Phone Care Team Providers Name Role Phone Richardson Graham MD Primary Care Provider Reason for Visit Auth/Cert (Routine) - Closed Specialty Diagnoses / Procedures Referred By Contact Refer red To Contact Diagnoses biliary sludge [facility] Main Or Procedures LAPAROSCOPY, CHOLECYSTECTOMY, CHOLANGIOGRAM- [address] [place] [address] Referral ID Status Reason Start Date Expiration Date Visits Requ ested Visits Authorized [id number] Closed 1 1 Encounter Details Date Type Department Care Team Description [facility]2011 Center 2 Oly Leyva MD other cystitis [address] [place] [address] [phone] [place] [address] Social History Tobacco Use Types Packs/Day Years Used Date Smoking Tobacco: Never Smokeless Tobacco: Never Alcohol Use Standard Drinks/Week Comments No 0 (1 standard drink = 0.6 oz pure alcoho l) occas Sex Assigned at Date Recorded Not on file documented as of this encounter Last Filed Vital Signs Vital Sign Reading Time Taken Comments Blood Pressure 147/82 09/26/2011 7:58 AM METAL SANDER AND FINISHER Pulse 53 09/26/2011 7:58 AM METAL SANDER AND FINISHER Temperature 36.6 ??C (97.8 ??F) 09/26/2011 7:58 AM METAL SANDER AND FINISHER Respiratory Rate 16 09/26/2011 7:58 AM METAL SANDER AND FINISHER Oxygen Saturation 95% 09/26/2011 7:58 AM METAL SANDER AND FINISHER Inhaled Oxygen Concentration - - Weight 116.6 kg (257 lb) 09/24/2011 12:38 PM METAL SANDER AND FINISHER Height 177.8 cm (5' 10) 09/24/2011 12:38 PM METAL SANDER AND FINISHER Body Mass Index 36.88 09/24/2011 12:38 PM METAL SANDER AND FINISHER documented in this encounter Discharge Summaries Сергей Batres MD - 09/27/2011 9:05 AM CST L SANDER AND FINISHER documented in this encounter Discharge Instructions Discharge [...] arm, back, neck or jaw pain ?? [phone] [employer], [address] [place] [id number]. All rights reserved. This information is not [...] your medicine. Do not use any medicines, gxdk-vpl-bqexuxa drugs, vitamins, herbs, or food supplements without [...] smoke. Smoking cessation support is available at [facility] Tobacco Cessation Program- [phone] or QUITPLAN (8-153-641-PLAN or GPNX.Mir Tesen). Aline Shine does not smoke. We are concerned about your emotional health after discharge. If you are feeling alone, sad, or hopeless, a 24 hour suicide crisis and referral hotline is available at INTTRA (6543) or toll-free at Heart Failure: N/A Instructions [...] regarding discharge instructions at this time: No L SANDER AND FINISHER documented in this encounter Medications at Time [...] Batres MD - 09/27/2011 9:49 AM CST L SANDER AND FINISHER Сергей Batres MD - 09/27/2011 9:06 AM CST L SANDER AND FINISHER Mirela Antunez MD - 09/27/2011 9:06 AM CST L SANDER AND FINISHER Neeru Yusuf RN - 09/26/2011 11:18 AM CST Denies any pain, up ambulating in room without problems. Instructed on discharge instructions and follow up care, pt and expressed verbal understanding. Left safely with to return home. L SANDER AND FINISHER Malena Thacker - 09/26/2011 10:38 AM CST Pastoral visit and prayer for comfort and continued healing. L SANDER AND FINISHER Сергей Batres MD - 09/26/2011 10:02 AM CST Patient Name: ALINE SHINE Date of Service: 09/26/2011 : 1950 Age: 61Y Sex: M DC Site MRN: Patient Loc/Room #: BRSJ Provider: Сергей Batres MD, FACS, General Surgery PROGRESS NOTE SITE: [facility] POSTOP DAY #1 SUBJECTIVE: Patient is without [...] weeks. ELECTRONICALLY SIGNED Сергей Batres MD, FACS [facility] General Surgery cc: MD Richardson Guerrero MD John C. Berg, MD /JJD Job ID: [id number] /[id number] Document ID: [id number] L SANDER AND FINISHER Branden Fonseca RN - 09/25/2011 4:29 PM CST Patient arrived to floor from PACU at about 1540. Patient alert and orientated times 4. VSS. Oxygen 2L NC. Rates pain at 1/10. Orientated to room and surroundings, initial plan of care. present atbedside. Will continue to monitor. L SANDER AND FINISHER documented in this encounter Procedure Notes Сергей Batres MD - 09/25/2011 3:51 PM CSTAssociated Order(s): OPERATIVE REPORT HOSP Patient Name: ALINE SHINE Date of Service: 09/25/2011 : 1950 Age: 61Y Sex: M DC Site MRN: Patient Loc/Room #: BRSJ /2012 Provider: Сергей Batres MD, FACS, General Surgery OPERATIVE REPORT SITE: [facility] DATE: 09/25/2011 PREOPERATIVE DIAGNOSIS: Biliary sludge. POSTOPERATIVE [...] stable condition. ELECTRONICALLY SIGNED Сергей Batres MD, [facility] General Surgery cc: MD Richardson Guerrero MD John C. Berg, MD /JGONZALES Job ID: [id number] Document ID: [id number] L SANDER AND FINISHER documented in this encounter OR Notes Anesthesia Preprocedure Evaluation - Сергей Batres MD - 09/26/2011 9:57 AM METAL SANDER AND FINISHER L SANDER AND FINISHER Anesthesia Preprocedure Evaluation - Сергей Batres MD - 09/26/2011 9:57 AM METAL SANDER AND FINISHER L SANDER AND FINISHER documented in this encounter Miscellaneous Notes Op Note - Сергей Batres MD - 09/27/2011 9:06 AM CST L SANDER AND FINISHER Plan of Care - Сергей Batres MD - 09/27/2011 9:05 AM CST L SANDER AND FINISHER Brief Op Note - Сергей Batres MD [...] See dictated operative report for full details. L SANDER AND FINISHER documented in this encounter Plan of Treatment Pending Results Name Type Priority Associated Diagnoses Date/Ti me PATHOLOGY SPEC Pathology 09/25/2011 2: 15 PM METAL SANDER AND FINISHER documented as of this encounter Procedures Procedure Name Priority Date/Time Associated Comments Diagnosis GLUCOSE, METER 09/26/2011 6:14 Results fo r this AM METAL SANDER AND FINISHER procedure are i n the results section. GLUCOSE, METER 09/25/2011 11:39 Results f or this PM METAL SANDER AND FINISHER procedure are i n the results section. GLUCOSE, METER 09/25/2011 6:38 Results fo r this PM METAL SANDER AND FINISHER procedure are i n the results section. XR CHOLANGIOGRAM Routine 09/25/2011 2:17 Results for this OPERATIVE PM METAL SANDER AND FINISHER procedure are i n the results section. PATHOLOGY SPEC 09/25/2011 2:15 Results fo r this PM METAL SANDER AND FINISHER procedure are i n the results section. PATHOLOGY SPEC 09/25/2011 2:15 PM METAL SANDER AND FINISHER LAPAROSCOPY 09/25/2011 1:39 biliary sludge CHOLECYSTECTOMY WITH PM METAL SANDER AND FINISHER CHOLANGIOGRAM GLUCOSE, METER 09/25/2011 12:19 Results f or this PM METAL SANDER AND FINISHER procedure are i n the results section. OPERATIVE REPORT HOSP 09/25/2011 12:00 Re sults for this PM METAL SANDER AND FINISHER procedure are i n the results section. documented in this encounter Results (ABNORMAL) GLUCOSE, METER (09/26/2011 6:14 AM METAL SANDER AND FINISHER) P athologist Signature GLUCOSE, METER 143 (H) 70 - 99 [place] mg/dL LABORATORY Specimen Anatomical Collection Method Collection Time Receive d Time (Source) Location / / Volume Laterality 09/26/2011 6:14 AM 1 6:25 METAL SANDER AND FINISHER AM METAL SANDER AND FINISHER Сергей Batres MD EC CHEMISTRY ORDERABLES Performing Organization Address [facility] Phon e Number [facility] (ABNORMAL) GLUCOSE, METER (09/25/2011 11:39 PM METAL SANDER AND FINISHER) P athologist Signature GLUCOSE, METER 190 (H) 70 - 99 [place] mg/dL LABORATORY Specimen Anatomical Collection Method Collection Time Receive d Time (Source) Location / / Volume Laterality 09/25/2011 11:39 09/25/2011 PM METAL SANDER AND FINISHER 11:45 PM METAL SANDER AND FINISHER Сергей Batres MD EC CHEMISTRY ORDERABLES Performing Organization Address [facility] Phon e Number [facility] (ABNORMAL) GLUCOSE, METER (09/25/2011 6:38 PM METAL SANDER AND FINISHER) P athologist Signature GLUCOSE, METER 256 (H) 70 - 99 [place] mg/dL LABORATORY Specimen Anatomical Collection Method Collection Time Receive d Time (Source) Location / / Volume Laterality 09/25/2011 6:38 PM 1 6:50 METAL SANDER AND FINISHER PM METAL SANDER AND FINISHER Сергей Batres MD EC CHEMISTRY ORDERABLES Performing Organization Address [facility] Phon e Number [facility] XR CHOLANGIOGRAM, OPERATIVE (09/25/2011 2:17 PM METAL SANDER AND FINISHER) Anatomical Region Laterality Modality Abdomen, Other Radiographic Imaging Specimen (Source) Anatomical Location Collection Method / Collectio n Time Received Time / Laterality Volume Impressions 09/25/2011 5:19 PM METAL SANDER AND FINISHER ??No evidence of stones. Narrative 09/25/2011 5:19 PM METAL SANDER AND FINISHER CHOLANGIOGRAM 09/25/2011 INDICATION: ??Cholecystectomy. FINDINGS: ??Single image [...] ORDERA BLES PATHOLOGY SPEC (09/25/2011 2:15 PM METAL SANDER AND FINISHER) Component Value Ref Test Analysis Performed At [facility] gist Range Method Time Signature PATHOLOGY SPECIMEN SOURCE [facility] SPEC GALLBLADDER LABORATORY CLINICAL INFORMATION BILIARY [...] flynn-red. ??No m ass lesion is identified. ??Career Orientation Teacher sections are submitted in one c assette. JRD/LLG MICROSCOPIC Microscopic examination performed. DIAGNOSIS Gallbladder, cholecystectomy: Chronic cholecystitis. PATHOLOGIST: ??GARETT HERNDON MD Electronically Signed: ??09/26/2011 16:06 Specimen Anatomical Collection Method Collection Time Receive d Time (Source) Location / / Volume Laterality 09/25/2011 2:15 PM 1 3:14 METAL SANDER AND FINISHER PM METAL SANDER AND FINISHER Сергей Batres MD EC PATHOLOGY ORDERABLES Performing Organization Address City/State/ZIP Code Phon e Number [facility] (ABNORMAL) GLUCOSE, METER (09/25/2011 12:19 PM METAL SANDER AND FINISHER) P athologist Signature GLUCOSE, METER 112 (H) 70 - 99 [place] mg/dL LABORATORY Specimen Anatomical Collection Method Collection Time Receive d Time (Source) Location / / Volume Laterality 09/25/2011 12:19 09/25/2011 PM METAL SANDER AND FINISHER 12:25 PM METAL SANDER AND FINISHER Сергей Batres MD EC CHEMISTRY ORDERABLES Performing Organization Address City/State/ZIP Code Phon e Number [facility] OPERATIVE REPORT HOSP (09/25/2011 12:00 PM METAL SANDER AND FINISHER) Specimen (Source) Anatomical Collection Method Collection Time Re ceived Time Location / / Volume Laterality 09/25/2011 12:00 PM METAL SANDER AND FINISHER Transcriptions Сергей Batres MD - 09/25/2011 3:51 PM CST Patient Name: ALINE SHINE Date of Service: 09/25/2011 : [birth year] Age: 61Y Sex: M DC Site MRN: Patient Loc/Room #: BRSJ Provider: Сергей Batres MD, FACS, [facility] Surgery OPERATIVE REPORT SITE: [facility] DATE: 09/25/2011 PREOPERATIVE DIAGNOSIS: Biliary sludge. POSTOPERATIVE [...] e condition. ELECTRONICALLY SIGNED Сергей Batres MD, [facility] General Surgery cc: MD Richardson Guerrero MD John C. Berg, MD /JGONZALES Job ID: [id number] Document ID: [id number] Сергей Batres MD EC PROCEDURES documented in this encounter Visit Diagnoses Diagnosis Calculus of gallbladder with other mark cystitis, without mention of obstruction documented in this encounter Administered Medications Inactive Administered Medications Medication Order MAR Action Action Date Dose Rate Site clindamycin (CLEOCIN) 600 mg New 09/25/2011 1:33 PM METAL SANDER AND FINISHER 600 mg 100 mL/hr in sodium chloride 0.9 % (NS) 50 mL IVPB 600 mg, Intravenous, at 100 mL/hr, DEAD MAIL CHECKER TO SURGERY, 1 dose, Starting on Fri09/25/11 at 1153, Until Fri09/25/11 at 1445 clindamycin (CLEOCIN) 600 mg in New Bag 09/26/2011 6:14 AM METAL SANDER AND FINISHER 600 mg 100 mL/hr sodium chloride 0.9 % (NS) 50 mL IVPB 600 mg, Intravenous, at 100 mL/hr, EVERY 8 HOURS, 2 doses, First dose on Fri09/25/11 at 2000, Last dose on Fri09/26/11 at 0600 [facility] 09/25/2011 9:17 PM METAL SANDER AND FINISHER 600 mg 100 mL/hr docusate sodium (COLACE) capsule 100 mg Given 09/26/2011 8:48 AM METAL SANDER AND FINISHER 100 mg 100 mg, Oral, 2 TIMES DAILY, First dose (after last reorder) on Fri09/26/11 at 0800, Until Discontinued fentaNYL (SUBLIMAZE) injection 50-100 mc g Given 09/25/2011 3:21 PM METAL SANDER AND FINISHER 50 mcg 50-100 mcg, IV Push, SEE ADMINISTRATION INSTRUCTIONS, Starting on Fri09/25/11 at 1504, Until Fri09/25/11 at 1545, Pain , for rapid pain control and/or numeric pain greater than 6, FLACC greater than 4. ANESTHESIA ORDER Given 09/25/2011 3:09 PM METAL SANDER AND FINISHER 50 mcg fentaNYL (SUBLIMAZE) injection Given by Other 09/25/2011 5:53 PM METAL SANDER AND FINISHER 50 mcg 50-100 mcg 50-100 mcg, IV Push, ONCE, 1 dose, On Fri09/25/11 at 1330 heparin (porcine) injection 5,000 Units Given 09/26/2011 8:48 AM METAL SANDER AND FINISHER 5,000 Units 5,000 Units, Subcutaneous, EVERY 12 HOURS, First dose on Fri09/25/11 at 2000, Until Discontinued Given 09/25/2011 8:42 PM METAL SANDER AND FINISHER 5,000 Units HYDROmorphone (DILAUDID) injection 0.5-1 mg Given 09/25/2011 3:20 PM METAL SANDER AND FINISHER 0.5 mg 0.5-1 mg, IV Push, EVERY 5 MINUTES NEEDED, Starting on Fri09/25/11 at 1504, Until Fri09/25/11 at 1545, Pain , to maximum dose of 3 mg for standard pain control. ANESTHESIA ORDER Given 09/25/2011 3:09 PM METAL SANDER AND FINISHER 0.5 mg ketorolac (TORADOL) injection 15 mg Given 09/26/2011 8:48 AM METAL SANDER AND FINISHER 15 mg 15 mg, IV Push, EVERY 6 HOURS, 4 doses, First dose on Fri09/25/11 at 1800, Last dose on Fri09/26/11 at 1500 Given 09/26/2011 3:15 AM METAL SANDER AND FINISHER 15 mg Given 09/25/2011 9:17 PM METAL SANDER AND FINISHER 15 mg lactated ringers infusion New Bag 09/26/2011 1:38 AM METAL SANDER AND FINISHER 125 mL/hr Intravenous, at 125 mL/hr, CONTINUOUS, Starting on Fri09/25/11 at 1630, Until Fri09/26/11 at 1432 New Bag 09/25/2011 5:50 PM METAL SANDER AND FINISHER 125 mL/hr Rate/Dose Verify 09/25/2011 4:55 PM METAL SANDER AND FINISHER 125 mL/hr LACTATED RINGERS IV SOLN Given 09/25/2011 12:20 PM METAL SANDER AND FINISHER 150 mL/hr 1 dose, Starting on Fri09/25/11 at 1228, Until Fri09/25/11 at 1220 metFORMIN (GLUCOPHAGE) tablet 1,000 mg Given 09/26/2011 8:48 AM METAL SANDER AND FINISHER 1,000 mg 1,000 mg, Oral, 2 TIMES DAILY, First dose on Fri09/25/11 at 2000, Until Discontinued Given 09/25/2011 8:42 PM METAL SANDER AND FINISHER 1,000 mg metoprolol tartrate (LOPRESSOR) tablet 2 5 mg Given 09/26/2011 8:49 AM METAL SANDER AND FINISHER 25 mg 25 mg, Oral, 2 TIMES DAILY, First dose on Fri09/25/11 at 2000, Until Discontinued Given 09/25/2011 8:41 PM METAL SANDER AND FINISHER 25 mg midazolam (VERSED) injection 1-2 mg Given by Other 09/25/2011 5:52 PM METAL SANDER AND FINISHER 1 mg 1-2 mg, IV Push, ONCE, 1 dose, On Fri09/25/11 at 1330 morphine sulfate variable dose injection 2-8 mg Given 09/25/2011 5:48 PM METAL SANDER AND FINISHER 4 mg 2-8 mg, IV Push, EVERY 2 HOURS NEEDED, Starting on Fri09/25/11 at 1602, Until Fri09/26/11 at 1432, Pain , severe pain ondansetron (ZOFRAN) injection 4 mg Given by Other 09/25/2011 5:52 PM METAL SANDER AND FINISHER 4 mg 4 mg, IV Push, ONCE, 1 dose, On Fri09/25/11 at 1530 pantoprazole (PROTONIX) tablet 40 mg Given 09/26/2011 8:49 AM METAL SANDER AND FINISHER 40 mg 40 mg, Oral, ONCE DAILY, First dose on Fri09/26/11 at 0800, Until Discontinued documented in this encounter Active and Recently Administered Medications Times are shown in METAL SANDER AND FINISHER. Scheduled Medication Order 09/24/2011 09/25/2011 09/26/2011 clindamycin (CLEOCIN) 600 mg in sodium c hloride 0.9 % (NS) 50 mL IVPB (CANCELED) 1333 (New Bag - Provider: Xiomara Singh)175 (Not Given - Provider: Branden Fonseca RN - Reason: Other - Comment: pre op) 600 mg, Intravenous, at 100 mL/hr, ON CA LL TO SURGERY, 1 dose, First dose on Fri09/25/11 at 1200 clindamycin (CLEOCIN) 600 mg in sodium c hloride 0.9 % (NS) 50 mL IVPB (CANCELED) 2116 (New Bag - Provider: Branden Fonseca RN) [...] Discontinued fentaNYL (SUBLIMAZE) injection 50-100 mcg (CANCELED) 175 (Given by Other - Provider: Branden Fonseca [...] 2116 (Given - Provider: Branden Fonseca RN) 314 (Given - Provider: Jessica Barney)0848 (Given - [...] DAILY, First dos e on Fri09/25/11 at 1999, Until Discontinued metoprolol tartrate (LOPRESSOR) tablet 25 mg (CANCELED) 2040 (Given - Provider: Branden Fonseca RN) 0849 (Given - Provider: Neeru Yusuf RN) 25 mg, Oral, 2 TIMES DAILY, First dose o n Fri09/25/11 at 1999, Until Discontinued midazolam (VERSED) injection 1-2 mg (CANCELED) 1751 (Given by Other - Provider: Branden Fonseca RN - Comment: pre-op) 1-2 mg, IV Push, ONCE, 1 dose, Fri09/25/11 at 1330 ondansetron (ZOFRAN) injection 4 mg (CANCELED) 1751 (Given by Other - Provider: Branden Fonseca RN - Comment: pacu) 4 mg, IV Push, ONCE, 1 dose, Fri09/25/11 at 1530 pantoprazole (PROTONIX) tablet 40 mg (CANCELED) 0849 (Given - Provider: Neeru Yusuf RN) 40 mg, Oral, ONCE DAILY, First dose on Fri09/26/11 at 0800, Until Discontinued Continuous Medication Order 09/24/2011 09/25/2011 09/26/2011 lactated ringers infusion (CANCELED) 165 5 (Rate/Dose Verify - Provider: Ninoska Ruiz, AUSTYN)1750 (New Bag - Provider: Celia Delaney, RN) 0138 (New Bag - Provider: Yasmine Issa LPN) Intravenous, at 125 mL/hr, CONTINUOUS, S tarting 09/25/11 at 1630, Until Discontinued PRN Medication Order 09/24/2011 09/25/2011 09/26/2011 bupivacaine-epinephrine (MARCAINE, SENSO RCAINE) 0.25-1:837000 % injection (CANCELED) 1345 (Given - Provider: Alicia Dumont) NEEDED, Starting Fri09/25/11 at 1345, Until Discontinued cefazolin 1 g-heparin 2000 units-lactated ringers 1000 mL irrigation (CANCELED) 1345 (Given - Provider: Сергей Batres MD) NEEDED, Starting Fri09/25/11 at 1345, Until Discontinued fentaNYL (SUBLIMAZE) injection 50-100 mcg (CANCELED) 1509 (Given - Provider: Cris Dykes RN)1521 (Given - Provider: Cris Dykes RN) 50-100 [...] mg (CANCELED) 1748 (Given - Provider: Celia Delaney, AUSTYN) 2-8 mg, IV Push, EVERY 2 HOURS [...] bisacodyl (DULCOLAX) suppository 10 mg 1 1 bupivacaine-epinephrine (MARCAINE, 1 09/25/2011 SENSORCAINE) 0.25-1:055476 % injection cefazolin 1 g-heparin 2000 units-lactated 1 2010 ringers 1000 mL irrigation docusate sodium (COLACE) capsule 100 mg 3 [...] Date First Ordered Date DIET CONSISTENT CARBOHYDRATE [facility] 1 09/26/2011 Nursing Count Last Ordered Date First Ordered Date DISCHARGE CODE STATUS 1 09/26/2011 DISCONTINUE IV 1 09/26/2011 LIFTING RESTRICTIONS 1 09/26/2011 REMOVE DRESSING 1 09/26/2011 documented in this encounter Care Teams Power Line Installer Relationship Specialty Start Date End Date Richardson Graham MD PCP - General Family Medicine 09/17/11 10/10/112023 [address] [address] documented as of this encounter
--- OUTSIDE RECORDS SUMMARY | 2022-09-20 12:30 | XMS_ITS | Encounter Summary ---
:1950 Author Organization [employer] Address [address] [place] [address] Phone Care Team Providers Name Role Phone Richardson Graham MD Primary Care Provider Reason for Visit Auth/Cert (Routine) - Closed Specialty Diagnoses / Procedures Referred By Contact Refer red To Contact Diagnoses biliary sludge [facility] Main Or Procedures LAPAROSCOPY, CHOLECYSTECTOMY, CHOLANGIOGRAM- [address] [place] [address] Referral ID Status Reason Start Date Expiration Date Visits Requ ested Visits Authorized [id number] Closed 1 1 Encounter Details Date Type Department Care Team Description 09/25/2011 Hospital Encounter [facility] Radiology [address] [place] [address] Social History Tobacco Use Types Packs/Day Years [...] per day. documented as of this encounter Discharge Disposition Disposition Code Departure Means Destination Discharged documented in this encounter Plan of Treatment Not on filedocumented as of this encounter Procedures Procedure Name Priority Date/Time Associated Comments Diagnosis XR CHOLANGIOGRAM Routine 09/25/2011 2:17 PM Resul ts for this OPERATIVE CERTIFIED LACTATION COUNSELOR procedure are i n the results section. documented in this encounter Results XR CHOLANGIOGRAM, OPERATIVE (09/25/2011 2:17 PM CERTIFIED LACTATION COUNSELOR) Anatomical Region Laterality Modality Abdomen, Other Radiographic Imaging Specimen (Source) Anatomical Location Collection Method / Collectio n Time Received Time / Laterality Volume Impressions 09/25/2011 5:19 PM CERTIFIED LACTATION COUNSELOR ??No evidence of stones. Narrative 09/25/2011 5:19 PM CERTIFIED LACTATION COUNSELOR CHOLANGIOGRAM 09/25/2011 INDICATION: ??Cholecystectomy. FINDINGS: ??Single image [...] Batres MD EC DIAGNOSTIC IMAGING ORDERA BLES documented in this encounter Visit Diagnoses Not on filedocumented in this encounter Care Teams Blue Line Hanger Relationship Specialty Start Date End Date Richardson Graham MD PCP - General Family Medicine 09/17/11 10/10/112023 [address] [address] documented as of this encounter
--- OUTSIDE RECORDS SUMMARY | 2022-09-20 12:31 | XMS_ITS | Encounter Summary ---
:1950 Author Organization [employer] Address [address] [address] Phone Care Team Providers Name Role Phone Richardson Graham MD Primary Care Provider Richardson Graham MD Primary Care Provider Encounter Details Date Type Department Care Team Description 09/08/2002 Orders Only [facility] Olivia Graham MD FAMILY MEDICINE [address] 2023 [facility] [place] [address] [place] [id number] [phone] Social History Tobacco Use Types Packs/Day Years Used Date Smoking Tobacco: Never Assessed Sex Assigned at Date Recorded Not on file documented as of this encounter Plan of Treatment Not on filedocumented as of this encounter Procedures Procedure Name Priority Date/Time Associated Diagnosis Comme nts US GALLBLADDER RUQ Routine 09/08/2002 8:42 AM Res ults for this SNAKER TRACTOR DRIVER procedure are i n the results section. documented in this encounter Results US GALLBLADDER RUQ (09/08/2002 8:42 AM SNAKER TRACTOR DRIVER) Anatomical Region Laterality Modality Abdomen Other Specimen (Source) Anatomical Collection Method Collection Time Re ceived Time Location / / Volume Laterality 09/08/2002 8:42 AM SNAKER TRACTOR DRIVER Narrative 09/08/2002 8:42 AM SNAKER TRACTOR DRIVER ?HISTORY: ??Right upper quadrant pain. The gallbladder is normally distended. ? ?No gallbladder wall thickening or gallstones. ??Common bile duct is normal in caliber. ??Liver, pancreas, spleen, kidneys, and abdominal aorta are unremarkable. ?Negative abdominal ultrasound. Dictating Radiologist Сергей Hunt MD Electronically Signed By: Сергей Juarez rn Date & Time Signed: 09/08/2002 17:46 LAW ? Date & Time Transcrib ed: 09/08/2002 15:11 Procedure Note 2011 HISTORY: Right upper quadrant pain. The gallbladder is normally distended. N o gallbladder wall thickening or gallstones. Common bile duct is normal in caliber. Liver, pancreas, spleen, kidneys, and abdominal aorta are unremarkable. Negative abdominal ultrasound. Dictating Radiologist Сергей Hunt MD Electronically Signed By: Сергей Juarez rn Date & Time Signed: 09/08/2002 17:46 LAW Date & Time Transcribed: 09/08/2002 15:11 Richardson Graham MD EC US ORDERABLES documented in this encounter Visit Diagnoses Not on filedocumented in this encounter Care Teams Unclaimed Property Officer Relationship Specialty Start Date End Date Richardson Graham MD PCP - General 11/02/09 08/11/112023 [address] [id number] Richardson Graham MD PCP - General 01/03/09 11/01/09[address] [address] documented as of this encounter
--- OUTSIDE RECORDS SUMMARY | 2022-09-20 12:31 | XMS_ITS | Encounter Summary ---
:1950 Author Organization [facility] Address [address] [address] Phone Care Team Providers Name Role Phone Richardson Graham MD Primary Care Provider Richardson Graham MD Primary Care Provider Encounter Details Date Type Department Care Team Description 2009 Orders Only HISTORY DEPARTMENT Provider, Hx Social History Tobacco Use Types Packs/Day Years Used Date Smoking Tobacco: Never Assessed Sex Assigned at Date Recorded Not on file documented as of this encounter Ordered Prescriptions Prescription Sig Dispensed Refills Start Date End Date multivitamin 1 tablet, ORAL, DAILY, 1.000 Tab 0 2009 (TAB-A-LISA) TABS Refills: 0, 02/06/09 18:34:57, Substitution Permitted, current med (Hx) CHILDRENS ASPIRIN 81 MG 81 mg, ORAL, DAILY, 81.000 0 chewable tablet Refills: 0, 02/06/09 18:34:01, Substitution Permitted, current med (Hx) multivitamin Take by mouth. 1.000 Tab 0 2009 09/10/20 11 (TAB-A-LISA) TABS CHILDRENS ASPIRIN 81 MG 81.000 0 2009 1 11/10/2010 chewable tablet documented in this encounter Plan of Treatment Not on filedocumented as of this encounter Visit Diagnoses Not on filedocumented in this encounter Care Teams Fashion Consultant Relationship Specialty Start Date End Date Richardson Graham MD PCP - General 11/02/09 08/11/112023 [address] [place] [address] Richardson Graham MD PCP - General 01/03/09 11/01/09[address] [place] [address] documented as of this encounter
--- OUTSIDE RECORDS SUMMARY | 2022-09-20 12:31 | XMS_ITS | Encounter Summary ---
:1950 Author Organization [facility] Address [address] [address] Phone Care Team Providers Name Role Phone Richardson Graham MD Primary Care Provider Encounter Details Date Type Department Care Team Description 01/26/2011 Orders Only [facility] ZELDA Yanez w/o co mplication [facility] Martha Manuel RN type II (HCC) (Primary [address]) [place] [address] Social History Tobacco Use Types Packs/Day Years Used Date Smoking Tobacco: Never Assessed Sex Assigned at Date Recorded Not on file documented as of this encounter Plan of Treatment Not on filedocumented as of this encounter Results AST (08/23/2011 7:44 AM OPERATOR CONTROL ROOM) athologist Signature AST(SGOT) 18 0 - 40 IU/L [facility] Specimen Anatomical Collection Method Collection Time Receive d Time (Source) Location / / Volume Laterality 08/23/2011 7:44 AM 1 8:12 OPERATOR CONTROL ROOM AM OPERATOR CONTROL ROOM Narrative [facility] - 08/23/2011 9:51 AM OPERATOR CONTROL ROOM Fasting Richardson Graham MD EC CHEMISTRY ORDERABLES Performing Organization Address City/State/ZIP Code Phon e Number [facility] (ABNORMAL) LIPID PROFILE (08/23/2011 7:44 AM OPERATOR CONTROL ROOM) athologist Signature Cholesterol 198 100 - 200 [place] mg/dL LAB[facility]ATORY Comment: Total Cholesterol Reference Ranges Desirable: ? <200 ?mg/dL Borderline High: ?? 200-239 mg/dL High: ?>239 ?mg/ dL TRIGLYCERIDE 141 35 - 150 mg/dL [facility] HDL CHOLESTEROL 36 35 - 55 mg/dL [place] [facility] LDL- CALCULATED 134 (H) 1 - 130 mg/dL [facility] [facility] Specimen Anatomical Collection Method Collection Time Receive d Time (Source) Location / / Volume Laterality 08/23/2011 7:44 AM 1 8:12 OPERATOR CONTROL ROOM AM OPERATOR CONTROL ROOM Narrative [facility] - 08/23/2011 9:51 AM OPERATOR CONTROL ROOM Fasting Richardson Graham MD EC CHEMISTRY ORDERABLES ABN Performing Organization Address City/State/ZIP Code Phon e Number [facility] [facility] (ABNORMAL) A1C(HGB AIC) (08/23/2011 7:44 AM OPERATOR CONTROL ROOM) P athologist Signature A1C (HGB AIC) 6.4 (H) 0.0 - 6.0 [place] % [facility] Specimen Anatomical Collection Method Collection Time Receive d Time (Source) Location / / Volume Laterality 08/23/2011 7:44 AM 1 8:10 OPERATOR CONTROL ROOM AM OPERATOR CONTROL ROOM Narrative [facility] - 08/23/2011 9:46 AM OPERATOR CONTROL ROOM Fasting Richardson Graham MD EC CHEMISTRY ORDERABLES ABN Performing Organization Address City/[facility]/ZIP Code Phon e Number [facility] documented in this encounter Visit Diagnoses Diagnosis 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
--- OUTSIDE RECORDS SUMMARY | 2022-09-20 12:31 | XMS_ITS | Encounter Summary ---
:1950 Author Organization [facility] Address [address] [address] Phone Care Team Providers Name Role Phone Richardson Graham MD Primary Care Provider Richardson Graham MD Primary Care Provider Encounter Details Date Type Department Care Team Description 07/13/2002 Orders Only [facility] Blair Cooper MD 2023 [facility] eet [address] [place] [address] [place] [id number] (Wo rk) Social History Tobacco Use Types Packs/Day Years Used Date Smoking Tobacco: Never Assessed Sex Assigned at Date Recorded Not on file documented as of this encounter Plan of Treatment Not on filedocumented as of this encounter Procedures Procedure Name Priority Date/Time Associated Diagnosis Comme nts PATHOLOGY SPEC Routine 07/13/2002 2:55 PM Results for this CDT procedure are i n the results section . documented in this encounter Results PATHOLOGY SPEC (07/13/2002 2:55 PM CDT) Component Value Ref Test Analysis Performed At [facility] [place] Range Method Time Signature Clinical Specimen: RECTAL POLYP [facility] Information LABORATORY Pre-Op Diagnosis: NONE Post-Op Diagnosis: Gross The specimen is [facility] Description received with LABORATORY name Jose Pabon and labeled rectal polyp and consists of a piece of flynn tissue measuring 2 mm. Entirely submitted in one cassette. Microscopic Microscopic [facility] Description examination LABORATORY done. Diagnosis Biopsy, rectal polyp: ??[place] luis mucosa showing chronic inflammation, mild, and containing a lymphoid aggregate. [facility] Verified By: ??Howard Duff LABORATORY (Electronic Signature) Date and Time Signed: ??07/15/02 1:28 RMA ?? Date and Time Transcribed: ??07/15/02 12:22 Specimen (Source) Anatomical Collection Method Collection Time Re ceived Time Location / / Volume Laterality 07/13/2002 2:55 PM CDT Blair Hollingsworth MD EC PATHOLOGY ORDERABLES Performing Organization Address City/State/[facility] Code Phon e Number [place] [phone] [address] [address] LABORATORY [facility] documented in this encounter Visit Diagnoses Not on filedocumented in this encounter Care Teams Elevator Tender Relationship Specialty Start Date End Date Richardson Graham MD PCP - General 11/02/09 08/11/112023 [address] [id number] Richardson Graham MD PCP - General 01/03/09 11/01/09[address] [address] documented as of this encounter
--- OUTSIDE RECORDS SUMMARY | 2022-09-20 12:31 | XMS_ITS | Encounter Summary ---
:1950 Author Organization [email or web address] Address [address] [address] Phone Care Team Providers Name Role Phone Richardson Graham MD Primary Care Provider Richardson Graham MD Primary Care Provider Encounter Details Date Type Department Care Team Description 07/05/2004 Orders Only HISTORY DEPARTMENT Julio Quiroga MD DERMATOLOGY [place] [id number] [address] (Wo rk) Social History Tobacco Use Types Packs/Day Years Used Date Smoking Tobacco: Never Assessed Sex Assigned at Date Recorded Not on file documented as of this encounter Plan of Treatment Not on filedocumented as of this encounter Procedures Procedure Name Priority Date/Time Associated Diagnosis Comme nts PATHOLOGY SPEC Routine 07/05/2004 10:15 AM Result s for this CDT procedure are i n the results section . 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 ??The specimen consists of a 5 mm punch biopsy of flynn-carbone skin excised to a [facility] Description depth of 0.6 cm. ??The specimen is bisected and LABORATORY entirely submitted in one cassette. Microscopic A hair follicle is seen with surrounding acute inflammation and purulent material, consistent with a small abscess. ??There is scattered eosinophils at the periphery intermixed with neutrophils. ??Spars [facility] Description e lymphocytes are seen, as well as occasional plasma LABORATORY cells. ??A GMS stain is appl ied with adequate controls reviewed. The GMS stain shows hyphal and fungal elements within the hair follicle adjacent to the inflammatory response. 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 Diagnosis Skin, right thigh, punch bio psy: ??Perifollicular infiltrate with adjacent eosinophils and fungal organisms ??identified consistent with Majocchi's granuloma. [facility] Verified By: ??Jelena Rodrigez MD LABORATORY (Electronic Signature) Specimen (Source) Anatomical Collection Method Collection Time Re ceived Time Location / / Volume Laterality 07/05/2004 10:15 AM CDT Jack Quiroga MD EC PATHOLOGY ORDERABLES Performing Organization Address City/State/ZIP Code Phon e Number [facility] [address] [place] [address] LABORATORY [facility] documented in this encounter Visit Diagnoses Not on filedocumented in this encounter Care Teams Wood Engraver Relationship Specialty Start Date End Date Richardson Graham MD PCP - General 11/02/09 08/11/112023 [address] [address] Richardson Graham MD PCP - General 01/03/09 11/01/[address] [address] documented as of this encounter
--- OUTSIDE RECORDS SUMMARY | 2022-09-20 12:31 | XMS_ITS | Encounter Summary ---
:1950 Author Organization [employer] [facility] Address [address] [address] Phone Care Team Providers Name Role Phone Richardson Graham MD Primary Care Provider Richardson Graham MD Primary Care Provider Encounter Details Date Type Department Care Team Description 05/16/1989 Orders Only HISTORY DEPARTMENT Provider, Hx Social History Tobacco Use Types Packs/Day Years Used Date Smoking Tobacco: Never Assessed Sex Assigned at Date Recorded Not on file documented as of this encounter Plan of Treatment Not on filedocumented as of this encounter Procedures Procedure Name Priority Date/Time Associated Diagnosis Comme nts PATHOLOGY SPEC Routine 05/16/1989 12:00 AM Result s for this CDT procedure are i n the results section . documented in this encounter Results PATHOLOGY SPEC (05/16/1989 12:00 AM CDT) Component Value Ref Test Analysis Performed At [facility] Range Method Time Signature Clinical RT [facility] Information [facility] Diagnosis COMPATIBLE WITH [facility] ARTHROSCOPIC LABORATORY SHAVINGS, RIGHT KNEE. Specimen (Source) Anatomical Location Collection Method / Collectio n Time Received Time / Laterality Volume 05/16/1989 Hx Provider EC PATHOLOGY ORDERABLES Performing Organization Address City/State/ZIP Code Phon e Number [facility] [address] [place] [address] LABORATORY [facility] LAB[facility]ATORY documented in this encounter Visit Diagnoses Not on filedocumented in this encounter Care Teams Skates Operator Relationship Specialty Start Date End Date Richardson Graham MD PCP - General 11/02/09 08/11/112023 [address] [place] [address] Richardson Graham MD PCP - General 01/03/09 11/01/[address] [place] [address] documented as of this encounter
--- OUTSIDE RECORDS SUMMARY | 2022-09-20 12:31 | XMS_ITS | Encounter Summary ---
:1950 Author Organization [facility] Address [address] [address] Phone Care Team Providers Name Role Phone Richardson Graham MD Primary Care Provider Reason for Visit Reason Comments Refill Request Encounter Details Date Type Department Care Team Description 03/18/2011 [facility] Olivia Graham MD Refill Request FAMILY MEDICINE [address] 2023 [facility] [place] [address] [place] [address] [phone] Social History Tobacco Use Types Packs/Day Years Used Date Smoking Tobacco: Never Assessed Sex Assigned at Date Recorded Not on file documented as of this encounter Ordered Prescriptions Prescription Sig Dispensed Refills Start Date End Date metFORMIN (GLUCOPHAGE) TAKE ONE TABLET BY 180 Tab 3 03/1804/20/2012 1000 MG tablet MOUTH TWICE DAILY documented in this encounter Plan of Treatment Not on filedocumented as of this encounter Visit Diagnoses Not on filedocumented in this encounter Discontinued Medications Medication Sig Discontinue Reason Start Date End Date metFORMIN (GLUCOPHAGE) 1000 Take by mouth. 08/29/2009 03/18/2011 MG tablet documented as of this encounter Care Teams Child Neurologist Relationship Specialty Start Date End Date Richardson Graham MD PCP - General 11/02/09 08/11/112023 [address] [place] [address] documented as of this encounter
--- OUTSIDE RECORDS SUMMARY | 2022-09-20 12:31 | XMS_ITS | Encounter Summary ---
:1950 Author Organization [employer] [facility] Address [address] [address] Phone Care Team Providers Name Role Phone Richardson Graham MD Primary Care Provider Richardson Graham MD Primary Care Provider Encounter Details Date Type Department Care Team Description 04/17/2001 Orders Only HISTORY DEPARTMENT Davide Carr [address] [place] [address] Social History Tobacco Use Types Packs/Day Years Used Date Smoking Tobacco: Never Assessed Sex Assigned at Date Recorded Not on file documented as of this encounter Plan of Treatment Not on filedocumented as of this encounter Procedures Procedure Name Priority Date/Time Associated Diagnosis Comme nts MRI LOWER EXTREMITY Routine 04/17/2001 1:36 PM Re sults for this JOINT RT CDT procedure are i n the results section. documented in this encounter Results MRI LOWER EXTREMITY JOINT RT (04/17/2001 1:36 PM CDT) Anatomical Region Laterality Modality Other Specimen (Source) Anatomical Collection Method Collection Time Re ceived Time Location / / Volume Laterality 04/17/2001 1:36 PM CDT Narrative 04/17/2001 1:36 PM CDT HISTORY: ??Possible right knee internal derangement. PROCEDURE: ??The study was performed wit h an axial T1 sequence, turbo T2 double echo coronal, sagittal T1 and gradient echo sagittal T2 images. High contrast windowing was also performed on the T1 sagittal images. FINDINGS: ??There is abnormal increased signal through the posterior horn of the medial meniscus as well as irregularity to the superior articular surface. ??The findings indicate a tear through the pos terior and mid portion of the meniscus. ??The lateral meniscus is normal in contour and signal intensity. Anterior and posterior cruciates and the collateral ligaments are normal in contour and signal intensity with no evidence of a tear. ??The patellar and quadriceps tendons are intact. In the bone marrow, there is some edema of the subchondral portion of the medial tibial plateau indicating a contusion. ??The other bones have normal signal intensity throughout. There is a mild joint effusion. ??There is no evidence of a Sawant's cyst. ??The articular cartilages are normal in thickness throughout. 1. ??Torn posterior horn of the medial m eniscus. 2. ??Small bone contusion in the medial tibial plateau. 3. ??Minimal joint effusion. Dictating Radiologist Сергей Ortega MD Electronically Signed By: JOEL Morin Date & Time Signed: 04/18/2001 13:09 Proxy Radiologist Signature: Joel Ibarra MD ? Date & Time Transcrib ed: 04/17/2001 20:28 Procedure Note Joel Ibarra 02/05/2011Formatting o f this note might be different from the original. HISTORY: Possible right knee internal de rangement. PROCEDURE: The study was performed with an axial T1 sequence, turbo T2 double echo coronal, sagittal T1 and gradient echo sagittal T2 images. High contrast windowing was also performed on the T1 sagittal images. FINDINGS: There is abnormal increased si gnal through the posterior horn of the medial meniscus as well as irregularity to the superior articular surface. The findings indicate a tear through the posterior and mid portion of the meniscus. The lateral meniscus is normal in contour and signal intensity. Anterior and posterior cruciates and the collateral ligaments are normal in contour and signal intensity with no evidence of a tear. The patellar and quadriceps tendons are intact. In the bone marrow, there is some edema of the subchondral portion of the medial tibial plateau indicating a contusion. The other bones have normal signal intensity throughout. There is a mild joint effusion. There is no evidence of a Sawant's cyst. The articular cartilages are normal in thickness throughout. 1. Torn posterior horn of the medial men iscus. 2. Small bone contusion in the medial ti bial plateau. 3. Minimal joint effusion. Dictating Radiologist Сергей Ortega MD D Electronically Signed By: JOEL Morin Date & Time Signed: 04/18/2001 13:09 Proxy Radiologist Signature: Joel Ibarra MD Date & Time Transcribed: 04/17/2001 20:28 Jad Vargas [facility] documented in this encounter Visit Diagnoses Not on filedocumented in this encounter Care Teams Weigher Production Relationship Specialty Start Date End Date Richardson Graham MD PCP - General 11/02/09 08/11/112023 [address] [address] Richardson Graham MD PCP - General 01/03/09 11/01/[address] [address] documented as of this encounter
--- OUTSIDE RECORDS SUMMARY | 2022-09-20 12:31 | XMS_ITS | Encounter Summary ---
:1950 Author Organization [facility] [facility] [employer] [facility] Address [address] [address] Phone Care Team Providers Name Role Phone Richardson Graham MD Primary Care Provider Richardson Graham MD Primary Care Provider Encounter Details Date Type Department Care Team Description 09/21/2009 Orders Only [facility]Mirela Lindsey MD CLINIC URGENT CARE [address] [place] [address] [place], [place] [address] [phone] Social History Tobacco Use Types Packs/Day Years Used Date Smoking Tobacco: Never Assessed Sex Assigned at Date Recorded Not on file documented as of this encounter Plan of Treatment Not on filedocumented as of this encounter Procedures Procedure Name Priority Date/Time Associated Diagnosis Comme nts XR SHOULDER LEFT 2 Routine 09/21/2009 3:48 PM Res ults for this OR MORE VIEWS MEDICARE COORDINATOR procedure are in the results section. documented in this encounter Results XR SHOULDER LEFT 2 OR MORE VIEWS (09/21/2009 3:48 PM MEDICARE COORDINATOR) Anatomical Region Laterality Modality Shoulder Other Specimen (Source) Anatomical Collection Method Collection Time Re ceived Time Location / / Volume Laterality 09/21/2009 3:48 PM MEDICARE COORDINATOR Impressions 09/21/2009 3:48 PM MEDICARE COORDINATOR ?Mild degenerative change, AC joint. Dictating Radiologist Сергей Caballero MD Electronically Signed By: Federico WARNER, John Leyva Date & Time Signed: 09/22/09 16:37:03 AMK ? Date & Time Transcrib ed: 09/21/09 18:37:58 Narrative 09/21/2009 3:48 PM MEDICARE COORDINATOR ?HISTORY: ??Pain. FINDINGS: ??There is mild degenerative c hange in the AC joint. ??There is no fracture or dislocation. Procedure Note 02/08/2011 HISTORY: Pain. FINDINGS: There is mild degenerative danielle nge in the AC joint. There is no fracture or dislocation. IMPRESSION: Mild degenerative change, AC joint. Dictating Radiologist Federico WARNER, Сергей Leyva Electronically Signed By: Federico WARNER, John Leyva Date & Time Signed: 09/22/09 16:37:03 AMK Date & Time Transcribed: 09/21/09 18 :37:58 Mirela Barillas MD [facility] ORDERA BLES documented in this encounter Visit Diagnoses Not on filedocumented in this encounter Care Teams [place] Relationship Specialty Start Date End Date Richardson Graham MD PCP - General 11/02/09 08/11/112023 [address] [id number] Richardson Graham MD PCP - General 01/03/09 11/01/[address] [address] documented as of this encounter
--- OUTSIDE RECORDS SUMMARY | 2022-09-20 12:31 | XMS_ITS | Encounter Summary ---
:1950 Author Organization [employer] [facility] Address [address] [address] Phone Care Team Providers Name Role Phone Richardson Graham MD Primary Care Provider Encounter Details Date Type Department Care Team Description 09/09/2011 Abstract [facility] Urgent [facility], Mio hernandez D, [facility] [employer] Care 2023 [facility] [place] [address] Social History Tobacco Use Types Packs/Day Years Used Date Smoking Tobacco: Never Assessed Sex Assigned at Date Recorded Not on file documented as of this encounter Plan of Treatment Not on filedocumented as of this encounter Visit Diagnoses Not on filedocumented in this encounter Care Teams Skip Hoist Engineer Relationship Specialty Start Date End Date Richardson Graham MD PCP - General Family Medicine 08/12/11 09/16/112023 [address] [place] [address] documented as of this encounter
--- OUTSIDE RECORDS SUMMARY | 2022-09-20 12:31 | XMS_ITS | Encounter Summary ---
:1950 Author Organization [facility] [employer] Address [address] [address] Phone Care Team Providers Name Role Phone Unavailable Primary Care Provider Unavailable Reason for Visit Reason Onset Date Comments Edema 04/14/2008 Formerly [facility] 04/14/2008 Encounter Details Date Type Department Care Team Description 04/14/2008 Nurse Triage NURSE Michael Singh E dema; Formerly [facility] CARE LINE RN [address] [facility] [phone] [place] [address] (Work) [phone] Social History Tobacco Use Types Packs/Day Years Used Date Smoking Tobacco: Never Assessed Sex Assigned at Date Recorded Not on file documented as of this encounter Miscellaneous Notes Telephone Encounter - Michael Singh RN - 04/14/2008 11:05 PM CDT Negative: Severe difficulty breathing (e.g., struggling for each breath, stridor, speaks in single words) Negative: Looks like a broken bone or dislocated joint (e.g., crooked or deformed) R/O: forgotten trauma, pathologic fracture or dislocation Negative: Sounds like a life-threatening emergency to the triager Negative: Chest Pain Negative: Followed a leg injury Negative: [1] Small area of swelling AND [2] followed an insect bite to the area Negative: Swelling localized to ankle joint Negative: Swelling localized to knee joint Negative: Negative: (< 1 month since delivery) Negative: Difficulty breathing at rest R/O: CHF, pulmonary embolus Negative: Entire foot is cool or blue in comparison to other side R/O: arterial occlusion Negative: [1] Can't walk or can barely walk AND [2] new onset Reason: severe swelling or pain requiring urgent evaluation Negative: [1] Difficulty breathing with exertion (e.g., walking) AND [2] new onset or worsening R/O:worsening CHF Negative: [1] Red area or streak AND [2] fever R/O: cellulitis, lymphangitis Negative: [1] Swelling is painful to touch AND [2] fever R/O: cellulitis Negative: [1] Cast on leg or ankle AND [2] now increased pain R/O: swelling from tight cast (cast may need to be bi-valved) or DVT Negative: Patient sounds very sick or weak to the triager Negative: SEVERE leg swelling (e.g., swelling extends above knee, entire leg is swollen, weeping fluid) Reason: severe edema (3 to 4+), evaluation needed Affirmative: [1] Red area or streak [2] large (> 2 in. or 5 cm) R/O: cellulitis, erysipelas Disposition of See physician within 4 hours (or PCP triage) suggested. Instructed patient/caregiver to call back if symptoms worsen or if new symptoms develop. Telephone Encounter - Mcihael Singh RN - 04/14/2008 11:00 PM CDT Triage Queue message copied by MICHAEL REA on FriApr 14, 2008 11:00 PM ------ Message from: DOMINGO HUSTON Created: FriApr 14, 2008 10:22 PM >> DOMINGO HUSTON FriApr 14, 2008 10:22 pm No primary provider on file. Site referring: [facility], Provider: Richardson Graham Reason for Call - He went to urgent care on Friday for an infection in his leg. He is allergic to penicillin - He was given a prescription of cephalexin and his legs have become very swollen and he is worried he may be allergic to the medication. documented in this encounter Plan of Treatment Not on filedocumented as of this encounter Visit Diagnoses Not on filedocumented in this encounter
--- OUTSIDE RECORDS SUMMARY | 2022-09-20 12:31 | XMS_ITS | Encounter Summary ---
:1950 Author Organization [employer] Address [address] [address] Phone Care Team Providers Name Role Phone Richardson Graham MD Primary Care Provider Richardson Graham MD Primary Care Provider Encounter Details Date Type Department Care Team Description 09/08/2002 Orders Only HISTORY DEPARTMENT Chris Ace [address] [place] [address] Social History Tobacco Use Types Packs/Day Years Used Date Smoking Tobacco: Never Assessed Sex Assigned at Date Recorded Not on file documented as of this encounter Plan of Treatment Not on filedocumented as of this encounter Procedures Procedure Name Priority Date/Time Associated Diagnosis Comme nts PATHOLOGY SPEC Routine 09/08/2002 2:00 PM Results for this PRECISION INSPECTOR procedure are i n the results section . documented in this encounter Results PATHOLOGY SPEC (09/08/2002 2:00 PM PRECISION INSPECTOR) Component Value Ref Test Analysis Performed At [facility] Range Method Time Signature Clinical Specimen: ?? LESION MID BACK [facility] Information LABORATORY Pre-Op Diagnosis: ??NONE Post-Op Diagnosis: Gross The specimen is received in formalin, labeled with the patients name, medical record number, and ??designated lesion mid back. ??The specimen consists of a 1.7 x 0.6 cm ellipse of flynn pink skin excise [facility] Description d to a depth of 1.0 cm. ??Centrally located is a 0.5 x LABORATORY 0.4 cm hyperpigmented flat m acule lesion with irregular pigmentation and slightly irregular borders. ??The margins are inked in black and the specimen serially sectioned with the tips submitted in casse tte 1 and serial cross sections along the short axis in cassette 2. Microscopic Microscopic [facility] Description examination done. LABORATORY Diagnosis Skin, mid back, excisional b iopsy: ??Compound nevus with mild atypia, completely excised. [facility] Verified By: ??Jelena Rodrigez MD LABORATORY (Electronic Signature) Date and Time Signed: ??09/13/02 12:52 LLG ?? Date and Time Transcribed: ??09/13/02 9:57 Specimen (Source) Anatomical Collection Method Collection Time Re ceived Time Location / / Volume Laterality 09/08/2002 2:00 PM PRECISION INSPECTOR Chris [facility] PATHOLOGY ORDERABLES Performing Organization Address City/State/ZIP Code Phon e Number [facility] [address] [place] [address] LABORATORY [facility] LABORATORY documented in this encounter Visit Diagnoses Not on filedocumented in this encounter Care Teams Forestry Faculty Member Relationship Specialty Start Date End Date Richardson Graahm MD PCP - General 11/02/09 08/11/112023 [address] [id number] Richardson Graham MD PCP - General 01/03/09 11/01/09[address] [id number] documented as of this encounter
--- OUTSIDE RECORDS SUMMARY | 2022-09-20 12:31 | XMS_ITS | Encounter Summary ---
:1950 Author Organization [employer] Address [address] [address] Phone Care Team Providers Name Role Phone Richardson Graham MD Primary Care Provider Richardson Graham MD Primary Care Provider Encounter Details Date Type Department Care Team Description 08/29/2009 Orders Only HISTORY DEPARTMENT Provider, Hx Social History Tobacco Use Types Packs/Day Years Used Date Smoking Tobacco: Never Assessed Sex Assigned at Date Recorded Not on file documented as of this encounter Ordered Prescriptions Prescription Sig Dispensed Refills Start Date End Date XENICAL 120 MG capsule 120 mg 1 capsule, 120.000 0 200809/10/2011 ORAL, TID, 08/29/09 9:45:12 metFORMIN (GLUCOPHAGE) 1000 1,000 mg 1 tablet, 1000.000 0 08/29/2009 09/10/2011 MG tablet ORAL, BID, 08/29/09 9:40:01 XENICAL 120 MG capsule Take by mouth. 120.000 0 9 09/10/2011 metFORMIN (GLUCOPHAGE) 1000 Take by mouth. 1000.000 0 08/1303/18/2011 MG tablet documented in this encounter Plan of Treatment Not on filedocumented as of this encounter Visit Diagnoses Not on filedocumented in this encounter Care Teams Aerial Gunner Superintendent Relationship Specialty Start Date End Date Richardson Graham MD PCP - General 11/02/09 08/11/112023 [address] [facility] [place] [address] Richardson Graham MD PCP - General 01/03/09 11/01/09[address] [address] documented as of this encounter
--- OUTSIDE RECORDS SUMMARY | 2022-09-20 12:31 | XMS_ITS | Encounter Summary ---
:1950 Author Organization [employer] Address [address] [place] [address] Phone Care Team Providers Name Role Phone Richardson Graham MD Primary Care Provider Richardson Graham MD Primary Care Provider Encounter Details Date Type Department Care Team Description 09/21/2009 Orders Only [facility]-Mirela Lindsey MD CLINIC URGENT CARE [address] [facility] [address] [place] [address] [place], [place] [id number] [phone] Social History Tobacco Use Types Packs/Day Years Used Date Smoking Tobacco: Never Assessed Sex Assigned at Date Recorded Not on file documented as of this encounter Plan of Treatment Not on filedocumented as of this encounter Procedures Procedure Name Priority Date/Time Associated Diagnosis Comme nts XR CERVICAL SPINE 2 Routine 09/21/2009 3:48 PM Re sults for this OR 3 VIEWS FOOTWEAR STITCHER procedure are i n the results section. documented in this encounter Results XR CERVICAL 2 OR 3 VIEWS (09/21/2009 3:48 PM FOOTWEAR STITCHER) Anatomical Region Laterality Modality C-Spine Other Specimen (Source) Anatomical Collection Method Collection Time Re ceived Time Location / / Volume Laterality 09/21/2009 3:48 PM FOOTWEAR STITCHER Impressions 09/21/2009 3:48 PM FOOTWEAR STITCHER ?1. ??Slight loss of normal lordosis of the cervical spine, likely due to muscular spasm. 2. ??There is some very nonspecific soft tissue calcification posterior to the C5 spinous process. ??This likely represents ligamentous calcification. Dictating Radiologist Сергей Caballero MD Electronically Signed By: John Caballero MD Date & Time Signed: 09/22/09 16:37:03 AMK ? Date & Time Transcrib ed: 09/21/09 18:36:58 Narrative 09/21/2009 3:48 PM FOOTWEAR STITCHER ?HISTORY: ??Decreased range of motion. FINDINGS: ??The cervical vertebral body heights and disc spaces are well preserved. ??There is slight loss of normal lordosis of the cervical spine, likely due to muscular spasm. ??There is some soft ti ssue calcification posterior to the spin ous process of C5, likely representing some ligamentous calcification. ??There are two areas of calcification, one measuring 15 millimeters craniocaudal, the other measuring 11 millimeters craniocaudal in size. ??There is no fracture or subluxation seen. Procedure Note 02/08/2011 HISTORY: Decreased range of motion. FINDINGS: The cervical vertebral body he ights and disc spaces are well preserved. There is slight loss of normal lordosis of the cervical spine, likely due to muscular spasm. There is some soft tissue calcification posterior to the spinous process of C5, likely representing some ligamentous calcification. There are two areas of calcification, one measuring 15 millimeters craniocaudal, the other measuring 11 millimeters craniocaudal in size. There is no fracture or subluxation seen. IMPRESSION: 1. Slight loss of normal lordosis of th e cervical spine, likely due to muscular spasm. 2. There is some very nonspecific soft t issue calcification posterior to the C5 spinous process. This likely represents ligamentous calcification. Dictating Radiologist Сергей Caballero MD Electronically Signed By: John Caballero MD Date & Time Signed: 09/22/09 16:37:03 AMK Date & Time Transcribed: 09/21/09 18 :36:58 Mirela Barillas MD [facility]A BLES documented in this encounter Visit Diagnoses Not on filedocumented in this encounter Care Teams Forestry Biology Specialist Relationship Specialty Start Date End Date Richardson Graham MD PCP - General 11/02/09 08/11/112023 [address] [place] [address] Richardson Graham MD PCP - General 01/03/09 11/01/09[address] [place] [address] documented as of this encounter
--- OUTSIDE RECORDS SUMMARY | 2022-09-20 12:31 | XMS_ITS | Encounter Summary ---
:1950 Author Organization [employer] Address [address] [place] [phone] Phone Care Team Providers Name Role Phone Richardson Graham MD Primary Care Provider Richardson Graham MD Primary Care Provider Encounter Details Date Type Department Care Team Description 09/04/[address] [facility]-Mirela Lindsey MD CLINIC URGENT CARE [address] [facility] [address] [place] [address] [place], [place] [id number] [phone] Social History Tobacco Use Types Packs/Day Years Used Date Smoking Tobacco: Never Assessed Sex Assigned at Date Recorded Not on file documented as of this encounter Plan of Treatment Not on filedocumented as of this encounter Procedures Procedure Name Priority Date/Time Associated Diagnosis Comme nts XR ELBOW LEFT 3 OR Routine 09/04/2009 3:31 PM Res ults for this MORE VIEWS ADULT AND PEDIATRIC NEUROLOGIST procedure are i n the results section. documented in this encounter Results XR ELBOW LEFT 3 OR MORE VIEWS (09/04/2009 3:31 PM ADULT AND PEDIATRIC NEUROLOGIST) Anatomical Region Laterality Modality Elbow Other Specimen (Source) Anatomical Collection Method Collection Time Re ceived Time Location / / Volume Laterality 09/04/2009 3:31 PM ADULT AND PEDIATRIC NEUROLOGIST Impressions 09/04/2009 3:31 PM ADULT AND PEDIATRIC NEUROLOGIST ?A 3 mm triangular-shaped avulsion fracture proximal and lateral to the lateral epicondyle of the left humerus. ??There is no evidence for a left elbow effusion, indicating that this most likely is a chronic injury. Dictating Radiologist Олег Austin MD Electronically Signed By: Kkie Austin MD Date & Time Signed: 09/06/09 07:43:25 MTB ? Date & Time Transcrib ed: 09/04/09 15:53:59 Narrative 09/04/2009 3:31 PM ADULT AND PEDIATRIC NEUROLOGIST ?LEFT ELBOW-THREE VIEWS INDICATION: ??Pain lateral epicondyle. ? ?History of fall 3 years ago. COMPARISON: ??No comparison. FINDINGS: ??Three millimeter triangular- shaped calcification proximal and lateral to the lateral epicondyle likely representing an avulsion fracture. ??Given the history of a fall 3 years ago, this may be acute or chronic. ??No evidence for l eft elbow effusion to suggest an acute injury. ??R emainder of the left elbow is negative. Procedure Note 02/08/2011 LEFT ELBOW-THREE VIEWS INDICATION: Pain lateral epicondyle. His tory of fall 3 years ago. COMPARISON: No comparison. FINDINGS: Three millimeter triangular-sh aped calcification proximal and lateral to the lateral epicondyle likely representing an avulsion fracture. Given the history of a fall 3 years ago, this may be acute or chronic. No evidence for left elbow effusion to suggest an acute injury. Rem ainder of the left elbow is negative. IMPRESSION: A 3 mm triangular-shaped avulsion fract ure proximal and lateral to the lateral epicondyle of the left humerus. There is no evidence for a left elbow effusion, indicating that this most likely is a chronic injury. Dictating Radiologist Олег Austin MD Electronically Signed By: Kike Austin MD Date & Time Signed: 09/06/09 07:43:25 MTB Date & Time Transcribed: 09/04/09 15 :53:59 Mirela Barillas MD [facility] DIAGNOSTIC IM[facility] ORDERA BLES documented in this encounter Visit Diagnoses Not on filedocumented in this encounter Care Teams Pearl Restorer Relationship Specialty Start Date End Date Richardson Graham MD PCP - General 11/02/09 08/11/112023 [address] [address] Richardson Graham MD PCP - General 01/03/09 11/01/[address] [address] documented as of this encounter
--- OUTSIDE RECORDS SUMMARY | 2022-09-20 12:31 | XMS_ITS | Encounter Summary ---
:1950 Author Organization [email or web address] Address [address] [address] Phone Care Team Providers Name Role Phone Richardson Graham MD Primary Care Provider Reason for Visit Reason Comments Physical yearly Encounter Details Date Type Department Care Team Description 09/10/2011 Office Visit [facility] Richardson Graham, Routine g eneral medical examination at a health care facility (Primary Dx); [facility] Other malaise and fatigue; 2023 South 2023 DM w/o co mplication type II (HCC); [facility] Essential hypertension, benign; [place] [id number] [place] [place] Chest pain; [phone] [id number] Need for prophylactic vaccination and in oculation against influenza Social History Tobacco Use Types Packs/Day Years Used Date Smoking Tobacco: Never Smokeless Tobacco: Never Alcohol Use Standard Drinks/Week Comments Not Asked 0 (1 standard drink = 0.6 oz pure alcoho l) Sex Assigned at Date Recorded Not on file documented as of this encounter Last Filed Vital Signs Vital Sign Reading Time Taken Comments Blood Pressure 152/72 09/10/2011 11:16 AM [employer]MER S[employer]OL COORDINATOR Pulse 68 09/10/2011 11:16 AM [employer]MER S[employer]OL COORDINATOR Temperature - - Respiratory Rate - - Oxygen Saturation - - Inhaled Oxygen Concentration - - Weight 121.6 kg (268 lb) 09/10/2011 11:16 AM [employer]MER S[employer]OL COORDINATOR Height 177.8 cm (5' 10) 09/10/2011 11:16 AM [employer]MER SCHOOL COORDINATOR Body Mass Index 38.45 09/10/2011 11:16 AM [employer]MER S[employer]OL COORDINATOR documented in this encounter Ordered Prescriptions Prescription Sig Dispensed Refills Start Date End Date influenza virus vaccine PF Inject 0.5 mL into 1 mL 0 1 11/10/2010 09/10/2011 (FLUZONE PRESERVATIVE the muscle one time FREE) for 1 dose. injectionIndications: Need for prophylactic vaccination and inoculation against influenza lisinopril (PRINIVIL, Take 1 Tab by mouth 60 Tab 4 09/1009/17/2011 ZESTRIL) 10 MG tablet one time a day. [id number] Inject 0.5 mL into 0.5 mL 0 011 09/10/2011 pertussis (BOOSTRIX) the muscle one time 5-2.5-18.5 LF-MCG/0.5 for 1 dose. injection documented in this encounter Progress Notes Richardson Graham MD - 09/11/2011 9:21 PM CST [facility] Patient Name: ALINE PABON Date of Service: 09/10/2011 : 1950 Age: 61Y Sex: M DC Site MRN: Patient Loc/Room #: [facility] FP/ Provider: Richardson Graham MD, Family Practice OFFICE NOTE SITE: [facility] PROBLEMS: 1. Well male examination. 2. Hypertension. 3. Fatigue. 4. Diabetes. 5. Constipation. 6. Heartburn. 7. Dyspnea on exertion. 8. History of sleep apnea. CHIEF COMPLAINT: Well man exam SUBJECTIVE: Patient [...] Abdomen - soft without mass. Genital - testes - no masses. Hernia - negative. There is a littleprominence of the left inguinal region. I think it is likely a mild lipoma. There is no real hernia palpable. Rectal - prostate is flat, 1+, no nodularity, normal consistency, no rectal masses. Skin - normal, no lesions noted. Pulses - normal peripheral. Neurologic - normal. ASSESSMENT: 1. Cardiac risk - negative smoking. Blood pressure is high. We are going to check this and treat it;see below. Cholesterol has just been done. His LDL is 134 but for a diabetic, we need it less than 100 - see below in diabetic review. He understands the importance of bringing this down. He would liketo try without medication initially and bring his weight back down. 2. Cancer screening - includes a PSA and a prostate check. He has had a colonoscopy in 2001; next year he will need another colonoscopy. Skin - no lesions. If any moles change, contact us. 3. Immunizations - will put in the computer for a Zostavax. He is given a flu vaccine today. PROBLEMS: 1. Diabetes. He is at goal with aspirin, nonsmoker and A1c at 6.4. He is currently on metformin 1000mg b.i.d. for his diabetes. He is not at goal with blood pressure or lipid. He would like to stay off lipid medications for now and see if he can bring his weight back down. He had done so last year and then consider rechecking in 3 to 4 months; see if his cholesterol is coming down. Hypertension - see below. We are going to begin treatment with lisinopril and gradually increase. 2. Hypertension. He brings in about 30 readings; all running quite high at 170 to 180 over 90 to 100. His blood pressure cuff compared to ours was 10 points higher but we have 152/72 and even if you take the 10 points off, it remains high. He has gained some weight. We talked about the importance of low salt diet, weight loss, regular exercise, being careful with caffeine. Information is given on blood pressure and cards and will begin lisinopril 10 mg daily. If his blood pressure is not down in 2 weeks, go to 20 mg daily. If it is still not down, we will go to lisinopril/hydrochlorothiazide. Also,reviewed side effects including slight cough is possible. If this occurs, we will go to losartan. We will check lab today as well including kidney function tests. 3. Fatigue. He noticed he is just tired more than he has been in the past. We talked about possible causes of fatigue. He does not feel rested at night. He has had sleep studies that were borderline. He tried the CPAP but he just did not tolerate it very well. He understands there are some new face masks available. We are going to check a hemoglobin, a TSH and a sedimentation rate. Encouraged weight loss and exercise. However, if he continues to feel fatigued, then I think re-looking at CPAP is veryreasonable. We talked about stress as another issue and stress management. 4. Constipation. He had some heartburn and some constipation. We talked about constipation. He has it corrected now; drinking enough water and using MiraLax. If persistent, he will let me know. We willinclude a TSH. 5. He has had some dyspnea on exertion. This summer, he has not been able to walk as far or as fast as he has other [place] but he did gain some weight. He does notice a little shortness of breath. He has had more heartburn but not related to exertion. I think with his risk factors, we should fully evaluate this. We are going to set him up for a cardiology appointment and consider arranging for stress testing and have their opinion. PLAN: Cardiology consult. Lab today of Chem-21, PSA, hemoglobin, TSH, sedimentation rate. Flu vaccine. Will include a testosterone, free and total as he is tired and also he is finding that the Cialis really is not working for him anymore. Zostavax scheduled. Will schedule him a followup appointment. Begin lisinopril 10 mg daily. He has also noticed some trouble with ED. He has tried Viagra but did not like the inconvenience andit only worked fair. The Cialis at 20 mg just is not working well for him. We talked about Levitra, seeing urology, checking testosterone level. He could also try the daily Cialis. These are all options he will consider. Will check initially a testosterone level and then discuss it further with him. ELECTRONICALLY SIGNED Richardson Graham MD [facility] cc: /RFM Job ID: [id number] /tljts Document ID: [id number] ER SCHOOL COORDINATOR Richardson Graham MD - 09/10/2011 12:37 PM CST This note has been dictated. ER SCHOOL COORDINATOR Thea Zapata LPN - 09/10/2011 11:25 AM CST Depression ([place]) Screening Questions 1. During the past month, have you often been bothered by feeling down, depressed, or hopeless? Not at all 2. During the past month, have you often been bothered by little interest or pleasure in doing things? Not at all Fall Risk No ER SCHOOL COORDINATOR documented in this encounter Plan of Treatment Not on filedocumented as of this encounter Procedures Procedure Name Priority Date/Time Associated Comments Diagnosis TESTOSTERONE, TOTAL Routine 09/10/2011 12:13 Other malaise and Results for this AND FREE PM [employer]MER SCHOOL COORDINATOR fatigue procedure are i n the results section. COMPREHENSIVE Routine 09/10/2011 12:13 Essential Results fo r this METABOLIC PANEL PM [employer]MER S[employer]OL COORDINATOR hypertension, procedure a re in benign the results section. HEMOGLOBIN Routine 09/10/2011 12:13 Other malaise and Result s for this PM [employer] SCHOOL COORDINATOR fatigue procedure are i n the results section. THYROID STIMULATING Routine 09/10/2011 12:13 Other malaise and Results for this HORMONE PM [employer] S[employer]OL COORDINATOR fatigue procedure are i n the results section. URINALYSIS, REFLEX TO Routine 09/10/2011 11:30 Routine general Results for this CULTURE AM [employer] SCHOOL COORDINATOR medical examination procedur e are in at a health care the results facility section. documented in this encounter Results (ABNORMAL) SED RATE (09/20/2011 11:13 AM SUMMER SCHOOL COORDINATOR) athologist [facility] SED RATE 19 (H) 0 - 15 [place] mm/hr LABORATORY Specimen Anatomical Collection Method Collection Time Receive d Time (Source) Location / / Volume Laterality 09/20/2011 11:13 09/20/2011 AM [employer]MER SCHOOL COORDINATOR 11:28 AM [employer]MER SCHOOL COORDINATOR Richardson Graham MD EC HEMATOLOGY ORDERABLES Performing Organization Address City/State/ZIP Code Phon e Number [facility] PSA (09/20/2011 11:13 AM SUMMER SCHOOL COORDINATOR) [facility] Prostate 0.41 0.00 - [place] Specific 4.50 ng/mL LABORATORY Antigen Specimen Anatomical Collection Method Collection Time Receive d Time (Source) Location / / Volume Laterality 09/20/2011 11:13 09/20/2011 AM [employer]MER SCHOOL COORDINATOR 11:28 AM [employer]MER SCHOOL COORDINATOR Richardson Graham MD EC CHEMISTRY ORDERABLES ABN Performing Organization Address City/[facility]/ZIP [facility] Phon e Number [facility] TESTOST, TOT AND FREE (09/10/2011 12:13 PM SUMMER SCHOOL COORDINATOR) [facility] Testosterone, 320 240 - 950 [place] Total ng/dL LABORATORY Comment: Test Performed by: [facility] Dpt of Lab Med and Pathology [address] [place] [address] [employer] Sticker: Darwin monahan III, M.D. Testosterone, Free 12 9 - 30 ng/dL [place] [facility] Comment: Test Performed by: [facility] Dpt of Lab Med and Pathology [address] [place] [address] [employer] Sticker: Darwin monahan III, M.D. Specimen Anatomical Collection Method Collection Time Receive d Time (Source) Location / / Volume Laterality 09/10/2011 12:13 09/10/2011 2:57 PM SUMMER SCHOOL COORDINATOR PM [employer] S[employer]OL COORDINATOR Richardson Graham MD EC LAB SEND OUT ORDERABLES Performing Organization Address City/[facility] Phon e Number [facility] TSH (09/10/2011 12:13 PM SUMMER SCHOOL COORDINATOR) [facility] T[facility] 3.080 0.270 - [place] 4.200 LABORATORY mIU/mL Specimen Anatomical Collection Method Collection Time Receive d Time (Source) Location / / Volume Laterality 09/10/2011 12:13 09/10/2011 PM SUMMER SCHOOL COORDINATOR 12:21 PM SUMMER SCHOOL COORDINATOR Richardson Graham MD EC CHEMISTRY ORDERABLES ABN Performing Organization Address City/[facility]/ZIP Code Phon e Number [facility] HGB (LAB COLLECT) (09/10/2011 12:13 PM SUMMER SCHOOL COORDINATOR) P athologist Signature HGB 14.6 13.0 - 17.0 [place] g/dL LABORATORY Specimen Anatomical Collection Method Collection Time Receive d Time (Source) Location / / Volume Laterality 09/10/2011 12:13 09/10/2011 PM [employer]MER SCHOOL COORDINATOR 12:22 PM SUMMER SCHOOL COORDINATOR Richardson Graham MD EC HEMATOLOGY ORDERABLES Performing Organization Address City/State/[facility] Code Phon e Number [facility] (ABNORMAL) COMPR MET PANEL (09/10/2011 12:13 PM SUMMER SCHOOL COORDINATOR) P athologist Signature SODIUM 143 136 - 144 [place] mEq/L LABORATORY POTASSIUM 4.6 3.4 - 4.6 [facility] Chloride 105 98 - 107 [place] mEq/L LABORATORY CO2 27 22 - 32 [place] mEq/L LABORATORY GLUCOSE 126 (H) 70 - 99 [place] mg/dL LABORATORY BUN 16 8 - 23 [place] mg/dL LABORATORY Creatinine 1.20 0.60 - 1.20 [place] mg/dL LABORATORY GFR CALC >60 [facility] Comment: GFR Normal: >60 mL/min/1.73 m2 Calcium 9.5 8.8 - 10.4 mg/dL [facility] Protein, Total 7.3 6.6 - 8.7 gm/dL [facility] Albumin 4.6 3.5 - 5.1 gm/dL [facility] ALK PHOSPHATASE 79 40 - 129 IU/L [facility] L ABORATORY ALT(SGPT) 35 0 - 41 IU/L [facility] Y AST(SGOT) 24 0 - 40 IU/L [facility] LABOR[facility] Y TOTAL BILIRUBIN 0.4 0.0 - 1.2 mg/dL [facility] ANION GAP 15.6 [facility] Specimen Anatomical Collection Method Collection Time Receive d Time (Source) Location / / Volume Laterality 09/10/2011 12:13 09/10/2011 PM SUMMER SCHOOL COORDINATOR 12:21 PM SUMMER SCHOOL COORDINATOR Richardson Graham MD EC CHEMISTRY ORDERABLES Performing Organization Address City/State/ZIP Code Phon e Number [facility] UA TO TY PEÑAN (09/10/2011 11:30 AM SUMMER SCHOOL COORDINATOR) [facility] Method Time Signature Type CVMS [facility] Color YELLOW [facility] Appearance CLEAR [facility] Urine Specific 1.025 [facility] [place] [facility] Urine pH 6.0 [facility] Urine Leukocyte Neg [facility] Urine Nitrites Neg [facility] Urine Protein NEGATIVE mg/dL [facility] Urine Glucose Neg mg/dL [facility] Urine Ketone Neg mg/dL [facility] Comment: URINALYSIS REFERENCE RANGES ? MICROSCOPIC REFERENCE ?RANGES Appearance: ?Clear ?WBC'S: ? 0-8/HPF Color: ? Yellow ? RBC'S: ? 0-3/HPF Specific [place]: ??1.003-1.035 ?Hyaline Casts: 0-3/LPF pH: ?5.0-8.0 Protein: ? Neg-Trace Glucose: ? Neg Ketone: ?Neg Blood: ? Neg Nitrite: ? Neg Leuk Esterase: ? Neg Microscopic Exam: Not Indicated [facility] Comment: Please Note: A routine urine not reflexing to a micro scopic exam automatically means the dipstick blood t est is negative. Urine WBC's Not Indicated /HPF [facility] Urine RBC's Not Indicated /HPF [facility] Urine Culture Reflex Not Indicated [facility] Specimen Anatomical Collection Method Collection Time Receive d Time (Source) Location / / Volume Laterality AIRPLANE DISPATCH CLERK 09/10/2011 11:30 09/10/2011 MID-STREAM URINE AM [employer]MER SCHOOL COORDINATOR 11:30 AM CS T SPECIMEN OBTAINED BY CLEAN CATCH PROCEDURE / Unknown Richardson Graham MD EC URINE ORDERABLES Performing Organization Address City/State/ZIP Code Phon e Number [facility] documented in this encounter Visit Diagnoses Diagnosis Routine general medical examination at a health care facility - Primary Other malaise and fatigue Type II or unspecified type diabetes sadia litus without mention of complication, not stated as uncontrolled Essential hypertension, benign Chest pain Chest pain, unspecified Need for prophylactic vaccination and in oculation against influenza documented in this encounter Discontinued Medications Medication Sig Discontinue Reason Start Date End Date CHILDRENS ASPIRIN 81 MG Duplicate Medication 9 09/10/2011 chewable tablet CIALIS 20 MG tablet Take by mouth. Duplicate Medication 02/08/2010 09/10/2011 metFORMIN (GLUCOPHAGE) 1,000 mg 1 tablet, Duplicate Medication 08/1309/10/2011 1000 MG tablet ORAL, BID, 08/29/09 9:40:01 multivitamin Take by mouth. Duplicate Medication 02/06/200909/10 (TAB-A-LISA) TABS XENICAL 120 MG capsule Take by mouth. Duplicate Medication 08/29/20 09 09/10/2011 XENICAL 120 MG capsule 120 mg 1 capsule, Other 08/29/2009 09/10/2011 ORAL, TID, 08/29/09 9:45:12 [id number] Inject 0.5 mL into Other 09/10/201111/10/2010 pertussis (BOOSTRIX) the muscle one 5-2.5-18.5 LF-MCG/0.5 time for 1 dose. injection documented as of this encounter Historical Medications This list may reflect changes made after this encounter. Medication Sig Dispensed Refills Start Date End Date sennosides-docusate Take 2 Tabs by mouth 0 201009/17/2011 sodium (SENOKOT-S) one time a day as 8.6-50 MG per tablet needed for Constipation (takes 1 or 2 tabs daily as needed). augmented betamethasone Apply topically one 0 09/17/2011 dipropionate time a day as needed. (DIPROLENE) 0.05 % ointment omega-3 fatty acid Take 1 Cap by mouth 0 09/10/20 11 10/17/2011 (FISH OIL) 1000 MG one time a day. capsule added in this encounter Orders Immunization/Injection Count Last Ordered Date First O rdered Date FLU VACC, 3+ YEARS, NO PRESERV 1 09/10/2011 documented in this encounter Care Teams Shut Off Worker Relationship Specialty Start Date End Date Richardson Graham MD PCP - General Family Medicine 08/12/11 09/16/112023 [address] [address] documented as of this encounter
== END 2022-09-16 08:32 | disposition home or self-care (01) ==
LOC: NFLDREF 09-20 12:10
PROVIDERS: PCP Family Medicine; Visit Provider Family Medicine
DX: E78.5 Hyperlipidemia, unspecified (principal); N18.30 Chronic kidney disease, stage 3 unspecified; E11.9 Type 2 diabetes mellitus without complications; I10 Essential (primary) hypertension
CPT/HCPCS: 80053

== ENCOUNTER 2022-11-14 07:54 | Outpatient (CLI) | payer MEDICARE, BC, SELFPAY ==
--- NOTE | 2022-11-14 09:44 | P.ANES_ITS ---
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
--- NOTE | 2022-11-14 09:54 | W.ANESCHARGE ---
Anesthesia Charges Start Date/Time Anesthesia Start Date: 11/14/22 Anesthesia Start Time: 09:02 Stop Date/Time Anesthesia Stop Date: 11/14/22 Anesthesia Stop Time: 09:45 Summary Extremes of Age - Over 70 or under 1: MDA
== END 2022-11-14 07:55 | disposition home or self-care (01) ==
PROVIDERS: PCP Family Medicine; Visit Provider Surgery
DX: Z12.11 Encounter for screening for malignant neoplasm of colon (principal); K63.5 Polyp of colon
CPT/HCPCS: 00811; 45385; 88305; 99100; J2704

== ENCOUNTER 2023-05-08 09:57 | Outpatient (CLI) | payer MEDICARE, BC, SELFPAY ==
--- NOTE | 2023-05-08 10:00 | CRLHL7_ITS ---
For Patients: As a result of the Century Cures Act, medical imaging exams and procedure reports are released immediately into your electronic medical record. You may view this report before your referring provider. If you have questions, please contact your health care provider. Indication: Chronic sinusitis and losing upper teeth Technique: Performed without IV contrast Comparison: 11/25/2018 Findings: Frontal sinuses: Mild mucosal thickening is present within the inferior frontal sinuses bilaterally. Ethmoid sinuses: Mild bilateral mucosal thickening noted. Maxillary sinuses: Mostly clear with very minimal mucosal thickening bilaterally. The maxillary sinus drainage pathways are patent on both sides. Sphenoid sinuses: Clear, including both sphenoethmoidal recesses. Nasal Cavity: Slight rightward curvature of the nasal septum. No polyps. No TMJ abnormalities identified. The visualized portions of the orbits, intracranial contents and upper soft tissue neck are grossly negative. Impression: 1. Minimal bilateral sinus disease. Patency of the sinus drainage pathways. 2. Slight curvature of the nasal septum. No nasal polyps. Please note that all CT scans at this facility use dose modulation, iterative reconstruction, and/or weight-based dosing when appropriate to reduce radiation dose to as low as reasonably achievable. Dictated by Jose Otero MD @ 05/08/2023 1:40:56 PM (Electronically Signed)
== END 2023-05-08 09:58 | disposition home or self-care (01) ==
LOC: CT 09:58
PROVIDERS: PCP Family Medicine; Visit Provider Otolaryngology
DX: J32.9 Chronic sinusitis, unspecified (principal); J34.2 Deviated nasal septum
CPT/HCPCS: 70486

== ENCOUNTER 2023-05-19 08:35 | Outpatient (CLI) | payer MEDICARE, BC, SELFPAY | END 2023-05-19 08:36 | disposition home or self-care (01) | LOC: NFLDREF 05-21 13:15 | PROVIDERS: PCP Family Medicine; Referring Provider Family Medicine; Visit Provider Family Medicine | DX: E11.9 Type 2 diabetes mellitus without complications (principal); E78.5 Hyperlipidemia, unspecified; I10 Essential (primary) hypertension | CPT/HCPCS: 80053; 80061 ==

== ENCOUNTER 2023-06-04 19:31 | Outpatient (CLI) | payer MEDICARE, BC, SELFPAY ==
--- NOTE | 2023-06-11 10:31 | W.PM.SLEEP ---
Sleep Study Details Details Interpreting Provider: Rufino Date of Sleep Study: 06/04/23 Sleep Study Details: STUDY TYPE:? Home unattended ? BMI:? 34.4 ORDERING PROVIDER:Marli Joy INDICATION:? Concerns about sleep apnea ? SLEEP SUMMARY:? 449.5 minutes monitored RESPIRATORY SUMMARY:? AHI 11.5, supine 66.9, left lateral 18.8, right lateral 3.1 Low oxygen 89 Snoring 3.1% PERIODIC LIMB MOVEMENTS OF SLEEP:? Not recorded during home study CARDIAC:? Range 44-74, mean 50.9 IMPRESSION:? 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 RECOMMENDATION: Treatment options would include a trial of positional therapy in the right lateral position, AutoSet CPAP, dental appliance. Weight loss and/or airway expansion surgery may also be beneficial.
== END 2023-06-04 19:32 | disposition home or self-care (01) ==
LOC: SLEEP 19:32
PROVIDERS: PCP Family Medicine; Visit Provider Otolaryngology
DX: G47.33 Obstructive sleep apnea (adult) (pediatric) (principal)
CPT/HCPCS: 95806

== ENCOUNTER 2023-11-11 07:37 | Outpatient (CLI) | payer MEDICARE, BC, SELFPAY ==
--- OUTSIDE RECORDS SUMMARY | 2023-11-12 12:36 | XMS_ITS | Referral Summary ---
Author Name Unknown Organization [facility] Address [address] [place] [id number] Care Team Providers Care Cooky Machine Operator Name Role Phone Chantal Madison MD Primary Care Provider + Allergies Active Allergy Reactions Criticality Noted Date Comments Adhesive Tape Rash Low 08/07/2020 Atorvastatin 08/07/2020 joint pain Ibuprofen 08/07/2020 severe kidney disease Penicillins 08/07/2020 throat swelling Vancomycin Rash Low 08/07/2020 Medications Medication Sig Dispensed Refills Start Date End Date Status glyBURIDE (DIABETA /MICRONASE) 5 MG tablet Take 2.5 mg by mouth every morning (0.5 x 5mg) 0 Active metFORMIN (GLUCOPHAGE) 500 MG tablet Take 500 mg by mouth 2 times daily (with meals) 0 Active betamethasone dipropionate (DIPROSONE) 0.05 % external cream Apply topically 2 times daily as needed 0 Active metoprolol tartrate (LOPRESSOR) 50 MG tablet Take 50 mg by mouth 2 times daily 0 Active rosuvastatin (CRESTOR) 5 MG tablet Take 5 mg by mouth every other day 0 Active fish oil-omega-3 fatty acids 1000 MG capsule Take 2 g by mouth 2 times daily 0 Active tamsulosin (FLOMAX) 0.4 MG capsule Take 0.4 mg by mouth every evening 0 Active glucosamine-chondro itin 500-400 MG CAPS per capsule Take 1 capsule by mouth 2 times daily wiith vit c 0 Active aspirin (ASA) 81 MG chewable tablet Take 81 mg by mouth daily 0 Active multivitamin w/minerals (MULTI-VITAMIN) tablet Take 1 tablet by mouth daily 0 Active magnesium oxide (MAG-OX) 400 (240 Mg) MG tablet Take 400 mg by mouth daily 0 Active celecoxib (CELEBREX) 100 MG capsuleIndications: Erectile dysfunction, unspecified erectile dysfunction type Take 1 capsule (100 mg) by mouth daily for 21 days 21 capsule 0 08/09/2020 Active oxyCODONE (ROXICODONE) 10 MG tabletIndications:E rectile dysfunction, unspecified erectile dysfunction type Take 1 tablet (10 mg) by mouth every 4 hours as needed for moderate to severe pain 12 tablet 0 08/09/2020 Active gabapentin (NEURONTIN) 300 MG capsuleIndications: Erectile dysfunction, unspecified erectile dysfunction type Take 1 capsule (300 mg) by mouth 3 times daily for 21 days 63 capsule 0 08/09/2020 Active senna-docusate (SENOKOT-S/PERICOLA CE) 8.6-50 MG tabletIndications:E rectile dysfunction, unspecified erectile dysfunction type Take 1 tablet by mouth 2 times daily as needed for constipation 30 tablet 1 08/09/2020 Active Active Problems Problem Noted Date Diagnosed Date Erectile dysfunction 08/08/2020 Social History Tobacco Use Types Packs/Day Years Used Date Smoking Tobacco: Never Smokeless Tobacco: Never Alcohol Use Standard Drinks/Week Comments Yes 0 (1 standard drink = 0.6 oz pur e alcohol) social Adolescent Education Answer Date Record ed Getting School Help Needed Not on file 07/05 Sex and Gender Information Value Date Recorded Sex Assigned at Not on file Gender Identity Not on file Sexual Orientation Not on file Last Filed Vital Signs Vital Sign Reading Time Taken Comments Blood Pressure 174/93 10/29/2022 10:25 PM MEDTRONICS TECHNICIAN Pulse 63 10/29/2022 10:25 PM MEDTRONICS TECHNICIAN Temperature 37.1 ??C (98.8 ??F) 10/29/2022 1 0:25 PM MEDTRONICS TECHNICIAN Respiratory Rate 20 10/29/2022 10:2 5 PM MEDTRONICS TECHNICIAN Oxygen Saturation 98% 10/29/2022 10: 25 PM MEDTRONICS TECHNICIAN Inhaled Oxygen Concentration - - Weight 102.1 kg (225 lb 1.6 oz) 020 11:00 AM CDT Height 177.8 cm (5' 10) 08/08/2020 11: 00 AM CDT Body Mass Index 32.3 08/08/2020 11:00 AM CDT Plan of Treatment Not on file Medical Devices Implanted Type Area Tax Appraiser Device Identifier Shelf Expiration Date Model / Serial / Lot Imp Prosthesis Penile Titan Std Assembly Kit [id number] Implanted:Qty: 1 on 08/08/2020 by Carmelo Forte MD at [facility] Penile Implant N/A: Penis COLOPLAST 04/18/2025 [id number] / / [id number] Titan Cylinder And Pump Implanted:Qty: 1 on 08/08/2020 by Carmelo Forte MD at [facility] N/A: Penis 05/18/2025 [id number] / / [id number] Advance Directives For more information, please contact: [phone] Latest Code Status on File Code Status Date Activated Date Inactivated Comments Full Code 08/08/2020 4:04 PM 08/09/2020 9:29 PM All basic and advanced life-sustaining interventions are performed as appropriate Question Answer Comments Code status determined by: Discussion with patient/ legal decision maker Care Teams Cooky Machine Operator Relationship Specialty Start Date End Date Chantal Madison MD [facility] [address] [place] [address] PCP - General Family Practice 07/24/20
--- OUTSIDE RECORDS SUMMARY | 2023-11-12 12:36 | XMS_ITS | Clinical Summary ---
Author Name Unknown Organization [facility] Address [place], [place] [address] Care Team Providers Care Junior Underwriter Name Role Phone Chantal Madison MD Primary Care Provider + Allergies Active Allergy Reactions Criticality Noted Date Comments Adhesive Rash 09/15/2012 Cefepime Rash 04/14/2017 Penicillins Anaphylaxis,Itching High 07/08/2016 Rash, swelling, redness Vancomycin Shortness Of Breath,Rash 04/14/2017 Medications Medication Sig Dispensed Refills Start Date End Date Status multivitamin (MVI) tablet Take 1 tablet by mouth once daily. 0 07/08/2016 Active glucosamine-chondroit in-vit c-manganese, [phone] mg, (COSAMIN DS, WITH MANGANESE,) 306-604-41-3 mg capsule Take 1 capsule by mouth 2 times daily. 0 Active magnesium gluconate (MAGONATE) 500 mg Take 1,000 mg by mouth once daily. 0 Active fish oil-omega-3 fatty acids (FISH OIL) 1,200-360 mg cap Take 1 capsule by mouth 2 times daily. 0 Active blood sugar diagnostic (ASCENSIA CONTOUR) strip Test four times daily 0 07/18/2014 Active betamethasone dipropionate 0.05% (DIPROSONE 0.05% CREAM) 0.05 % cream Apply to affected area twice daily as needed 0 01/07/2015 Active medication order composer Zinc 15 mg once daily. 0 10/26/2018 Active rosuvastatin (CRESTOR) 5 mg tablet 0 12/08/2019 Act dawson glyBURIDE (MICRONASE; DIABETA) 5 mg tablet Take 2.5 mg by mouth. 0 Active metFORMIN (GLUCOPHAGE) 500 mg tablet Take 500 mg by mouth. 0 Active Myrbetriq 50 mg tabletIndications:Uri nary frequency TAKE 1 TABLET (50 MG) BY MOUTH ONCE DAILY. 30 Tablet 11 02/12/2022 Active oxybutynin XL (DITROPAN XL) 5 mg CR tabletIndications:Uri nary urgency Take 1 Tablet (5 mg) by mouth once daily. 30 Tablet 11 02/13/2022 Active tamsulosin (FLOMAX) 0.4 mg capsuleIndications:Be nign prostatic hyperplasia with weak urinary stream Take 1 Capsule (0.4 mg) by mouth once daily after a meal. 90 Capsule 3 02/13/2022 Active Active Problems Problem Noted Date Diagnosed Date Benign prostatic hyperplasia with urinary freque ncy 03/13/2020 Hepatic steatosis 04/14/2017 S/P nasal septoplasty 04/13/2017 Abdominal pain 04/13/2017 Acute respiratory distress 04/13/2017 CKD (chronic kidney disease) stage 3, GFR 30-59 ml/min 01/17/2017 Erectile dysfunction of organic origin 6 Dysphagia 09/20/2015 Obesity 08/14/2015 Type 2 diabetes mellitus 02/04/2015 Benign essential hypertension 09/10/2011 Overview: Overview: IMO Update 07/23 Resolved Problems Problem Noted Date Diagnosed Date Resolved Date Severe sepsis 04/13/2017 04/14/2017 Immunizations Name Administration Dates Next Due Influenza Virus, Unspecified 07/24/2016 Tdap 07/08/2012 Tdap, Unspecified 08/27/2008 Zoster (Zostavax-ZVL, live) 09/17/2012, 8 Family History Medical History Relation Name Comments Cancer-prostate Brother Tyler Cancer-prostate Father Heart attack Father Other Father Parkinsonism Father Cancer Mother Leukemia Mother Cancer-colon Paternal Grandmother Relation Name Status Comments Brother Tyler Alive Father Mother Paternal Grandmother Social History Tobacco Use Types Packs/Day Years Used Date Smoking Tobacco: Never Smokeless Tobacco: Never Tobacco Cessation:Counseling Given: Yes Alcohol Use Standard Drinks/Week Comments Yes 0 (1 standard drink = 0.6 oz pur e alcohol) 1-2 drinks on a weekend Sex and Gender Information Value Date Recorded Sex Assigned at Not on file Gender Identity Not on file Sexual Orientation Not on file Obstetrics History Last Filed Vital Signs Vital Sign Reading Time Taken Comments Blood Pressure 127/62 03/25/2023 2:35 PM CDT Pulse 54 03/25/2023 2:35 PM CDT Temperature 37 ??C (98.6 ??F) 04/16/2017 8:53 AM CDT Respiratory Rate 20 02/11/2022 1:45 PM CDT Oxygen Saturation 97% 03/25/2023 2:35 PM CDT Inhaled Oxygen Concentration - - Weight 115.3 kg (254 lb 3.2 oz) 03/25/2023 2:35 PM CDT Height 177.8 cm (5' 10) 04/13/2017 12: 00 AM CDT Body Mass Index 36.47 04/13/2017 12:00 AM CDT Plan of Treatment Health Maintenance Due Date Last Done Comments Colonoscopy through age 75 1951 Hepatitis C screening for ag e 18-79 1969 Zoster (shingles) series for age 50+ (2 of 3) 11/12/2012 09/17/2012, 09/15/2008 Medicare Wellness for age 65+ 02/07/2016 Pneumococcal series for age 65+ (1 of 1 - PCV) 02/07/2016 Depression screening for age 12+ 07/30/2017 07/30/20 16 BMI (ht and wt on same day) for age 18+ 04/12/2018 04/12/2017, 03/03/2017, 02/25/2017, Additional history exists Lipids for age 45-75 07/24/2021 07/24/2016 Tetanus booster 07/08/2022 07/08/2012, 08/27/2008 COVID-19 vaccine series (2022-24 season) 2023 07/21/2022, 01/15/2022, 08/09/2021, Additional history exists Influenza for age 65+ 06/13/2023 07/24/2016 Tdap Completed 07/08/2012, 08/27/2008 Advance Directives Latest Code Status on File Code Status Date Activated Date Inactivated Comments Full Code 04/13/2017 12:22 AM 04/16/2017 12:34 PM Care Teams Junior Underwriter Relationship Specialty Start Date End Date Chantal Madison MD [address] [place] [address] PCP - General Family Practice 04/18/17
--- OUTSIDE RECORDS SUMMARY | 2023-11-12 12:36 | XMS_ITS | Clinical Summary ---
Author Name Unknown Organization [facility] Address [address] [place] [address] Care Team Providers Care Dye Can Operator Name Role Phone Chantal Madison MD [...] Comments Blood Pressure 174/93 10/29/2022 10:25 PM BUTTON INSPECTOR Pulse 63 10/29/2022 10:25 PM BUTTON INSPECTOR Temperature 37.1 ??C (98.8 ??F) 10/29/2022 1 0:25 PM BUTTON INSPECTOR Respiratory Rate 20 10/29/2022 10:2 5 PM BUTTON INSPECTOR Oxygen Saturation 98% 10/29/2022 10: 25 PM BUTTON INSPECTOR Inhaled Oxygen Concentration - - Weight 102.1 kg (225 lb 1.6 oz) 020 11:00 AM CDT Height 177.8 cm (5' 10) 08/08/2020 11: 00 AM CDT Body Mass Index 32.3 08/08/2020 11:00 AM CDT Plan of Treatment Health Maintenance Due Date Last Done Comments ADVANCE CARE PLANNING 1950 ANNUAL REVIEW OF HM ORDERS 1950 CT COLONOGRAPHY 1950 FIT 1950 FLEX SIG 1950 GLUCOSE 1950 sDNA (Cologuard) 1950 COLONOSCOPY 1961 COLORECTAL CANCER SCREENING 1961 HEPATITIS C SCREENING 1969 LIPID 1991 RSV VACCINE ( & 60+) (1 - 1-dose 60+ series) 2011 FALL RISK ASSESSMENT 02/07/2016 MEDICARE ANNUAL WELLNESS VISIT 09/20/2016 09/20/2015, 09/15/2014, 09/13/2013, Additional history exists COVID-19 Vaccine (2022- season) 2023 07/21/2022, 01/15/2022, 08/09/2021, Additional history exists INFLUENZA VACCINE (#1) 2023 , 07/23/2021, 07/18/2020, Additional history exists PHQ-2 (once per calendar year) 2023 DTAP/TDAP/TD IMMUNIZATION (4 - Td or Tdap) 10/04/2032 10/04/2022, 07/08/2012, 08/27/2008 Pneumococcal Vaccine: 65+ Years Completed 07/02/2017, 02/07/2016 ZOSTER IMMUNIZATION Completed 11/02/2019, 08/24/2019, 09/17/2012, Additional history exists HPV IMMUNIZATION Aged Out No longer e ligible based on patient's age to complete this topic IPV IMMUNIZATION Aged Out No longer e ligible based on patient's age to complete this topic MENINGITIS IMMUNIZATION Aged Out No l onger eligible based on patient's age to complete this topic RSV MONOCLONAL ANTIBODY Aged Out No l onger eligible based on patient's age to complete this topic Medical Devices Implanted Type Area Hard Metals Engraver Hand Device Identifier Shelf Expiration Date Model / Serial / Lot Imp Prosthesis Penile Titan Std Assembly Kit [id number] Implanted:Qty: 1 on 08/08/2020 by Carmelo Forte MD at [facility] Penile Implant N/A: Penis COLOPLAST 04/18/2025 [id number] / / [id number] Titan Cylinder And Pump Implanted:Qty: 1 on 08/08/2020 by Carmelo Forte MD at [facility] N/A: Penis 05/18/2025 [id number] / / [id number] Advance Directives For more information, please contact: [phone] Latest Code Status on File Code Status Date Activated Date Inactivated Comments Full Code 08/08/2020 4:04 PM 08/09/2020 9:29 PM All basic and advanced life-sustaining interventions are performed as appropriate Question Answer Comments Code status determined by: Discussion with patient/ legal decision maker Care Teams Dye Can Operator Relationship Specialty Start Date End Date Chantal Madison MD [facility] [address] [facility] [place] [address] PCP - General Family Practice 07/24/20
--- OUTSIDE RECORDS SUMMARY | 2023-11-12 12:36 | XMS_ITS | Clinical Summary ---
Author Name Unknown Organization [facility] Address [address] [address] Phone Care Team Providers Care Technical Recruiter Name Role Phone Brenda Vang PA-C Unavailable Elsewhere, Pcp Primary Care Provider Unavailabl e Allergies Active Allergy Reactions Criticality Noted Date Comments Adhesive Tape RASH 09/15/2012 Penicillins Anaphylaxis High 09/20/2011 Medications Medication Sig Dispensed Refills Start Date End Date Status CHILDRENS ASPIRIN 81 MG chewable tablet 81 mg, ORAL, DAILY, Refills: 0, 02/06/09 18:34:01, Substitution Permitted, current med (Hx) 81.000 0 2009 Active multivitamin (TAB-A-LISA) TABS 1 tablet, ORAL, DAILY, Refills: 0, 02/06/09 18:34:57, Substitution Permitted, current med (Hx) 1.000 Tab 0 2009 Active Zinc 50 MG TABS Take 1 Tab by mouth as needed. 30 Tab 0 09/17/2011 Active Lancet Devices MISC 1 Each by Does not apply route four times a day. 100 Each 4 05/14/2013 Active ARNAV CONTOUR TEST STRIP strip Test four times daily 100 Each 2 07/18/2014 Active COMPOUNDED RX by INTRACAVERNOSAL route as needed (erectile dysfunction). 0 09/16/2014 Active betamethasone dipropionate 0.05 % cream Apply to affected area twice daily as needed 45 g 1 01/07/2015 Active Misc. Devices Misc by Does not apply route. 1 Each 0 03/02/2015 Active Magnesium 100 MG Cap Take 1 Tab by mouth as needed. 0 Active Magnesium 250 MG Take 250 mg by mouth one time a day. 0 Active amLODIPine (NORVASC) 2.5 MG tablet Take 1 Tab by mouth one time a day. 90 Tab 3 11/13/2015 Active glyBURIDE (DIABETA) 5 MG tablet TAKE ONE TABLET BY MOUTH EVERY MORNING WITH BREAKFAST 90 Tab 3 12/24/2015 Active metoprolol tartrate (LOPRESSOR) 50 MG tablet Take 1 Tab by mouth two times a day. 180 Tab 2 03/04/2016 Active metFORMIN-XR (GLUCOPHAGE-XR) 500 MG 24 hour tabletIndications: Type 2 diabetes mellitus without complication (HCC) TAKE ONE TABLET EVERY MORNING WITH BREAKFAST. SWALLOW WHOLE, DO NOT CRUSH, DIVIDE, OR CHEW. 90 Tab 2 03/04/2016 Active fluticasone propionate (FLONASE) 50 MCG/ACT nasal spray Place 2 Sprays into both nostrils one time a day. Shake gently before each use; alternate nostrils with each spray. 16 g 0 12/14/2016 Active cetirizine (ZYRTEC) 10 MG tablet Take 1 Tab by mouth one time a day. 30 Tab 0 12/14/2016 Active Active Problems Problem Noted Date Diagnosed Date Dysphagia, unspecified dysphagia 09/20/2015 Overview: Updated per 07/13/17 IMO import BMI 37.0-37.9, adult 08/14/2015 Type 2 diabetes mellitus without complication FH: prostate carcinoma 09/15/2014 ED (erectile dysfunction) 09/13/2013 Healthcare maintenance 10/16/2011 Overview: Colon 2002 due TD 2007 adacel Renal insufficiency 09/22/2011 Overview: IMO Update 07/23 Elevated troponin 09/22/2011 Overview: IMO Update 07/23 Other malaise and fatigue 09/10/2011 Essential hypertension, benign 09/10/2011 Overview: IMO Update 07/23 Resolved Problems Problem Noted Date Diagnosed Date Resolved Date Renal insufficiency 07/13/2013 07/13/20 13 Acute pancreatitis 09/22/2011 4 Diabetes mellitus type II 09/22/2011 Overview: DUE:MALB A1C: HGA1C 6.4 08/23/2011 LDL: LDLC 134 08/23/2011 Cr: CREAT 1.02 10/06/2011, GFR >60 10/06/2011 Microalbumin: 21-50 09/03/10 Tobacco use: History Smoking status ? ? Never Smoker Smokeless tobacco ? ? Never Used Aspirin: yes Eye Exam: over 1 year. Depression: denies feeling down, depressed, hopeless, or having little interest or pleasure in doing things. Foot Exam: normal DP and PT pulses. IMO Update 07/23 DM w/o complication type II 09/10/2011 10/16/2011 Overview: IMO Update 07/23 Diabetes mellitus 09/09/2011 10/16/2011 Immunizations Name Administration Dates Next Due Influenza (Historic Use Only) 09/03/2010 Influenza Quad Preservative Free 09/20/2015,01/2014 Influenza Seasonal Inj A,B High Dose 09/13/2013 Influenza Seasonal Inj A,B Preservative Free Tdap (7 years and older) 08/27/2008 Varicella (Varivax) 09/15/2008 Zoster Zostavax (Shingles) 09/17/2012 Surgical History Surgery Date Site/Laterality Comments KNEE ARTHROSCOPY Both knees; ACL repair left; Meniscus on the right LAP,CHOLECYSTECTOMY 09/25/11 with cholangioram COLONOSCOPY 10/08/2012 10 yr f/u Medical History Medical History Date Comments Diabetes mellitus type II Obstructive sleep apnea Hypertension Obesity Pancreatitis, acute 09/22/2011 Eczema Hands and elbows Family History Medical History Relation Comments Cancer Brother 3 Prostate Cardiovascular Disease Brother 4 Dysrrhyth helene Cancer Father Prostate Parkinson's Disease Father Parkinson's Leukemia Mother Leukemia Diabetes Other GI Disease Sister 3 IBS Musculo-skeletal Disease Sister 4 Osteopo rosis Relation Status Comments Brother 1 Alive Brother 2 Alive Brother 3 Brother 4 Father (Age 85) Mother (Age 85) Other Sister 1 Alive Sister 2 Alive Sister 3 Sister 4 Social History Tobacco Use Types Packs/Day Years Used Date Smoking Tobacco: Never Smokeless Tobacco: Never Alcohol Use Standard Drinks/Week Comments No 0 (1 standard drink = 0.6 oz pur e alcohol) occasional Sex and Gender Information Value Date Recorded Sex Assigned at Not on file Gender Identity Not on file Sexual Orientation Not on file Obstetrics History Last Filed Vital Signs Vital Sign Reading Time Taken Comments Blood Pressure 128/71 12/14/2016 12:13 PM FOOD SERVICE SPECIALIST Pulse 65 12/14/2016 12:13 PM FOOD SERVICE SPECIALIST Temperature 36.8 ??C (98.3 ??F) 12/14/2016 12:[address] Respiratory Rate 18 08/14/2015 1:02 PM FOOD SERVICE SPECIALIST Oxygen Saturation 94% 12/14/2016 12:13 PM FOOD SERVICE SPECIALIST Inhaled Oxygen Concentration - - Weight 123.8 kg (273 lb) 12/14/2016 12:13 PM FOOD SERVICE SPECIALIST Height 177.8 cm (5' 10) 12/14/2016 12:13 PM FOOD SERVICE SPECIALIST Body Mass Index 39.17 12/14/2016 12:13 PM FOOD SERVICE SPECIALIST Plan of Treatment Health Maintenance Due Date Last Done Comments CT Colonography 1950 Cologuard 1950 Colonoscopy 1950 Colorectal Cancer Screening 1950 FIT/FOBT 1950 Sigmoidoscopy 1950 Hepatitis B Vaccine (Standing Order) (1 of 3 - Risk 3-dose series) 2011 RSV Vaccination (60+ yrs) (Abrysvo/Arexvy) (1 - 1-dose 60+ series) 2011 Shingrix (Zoster recombinant) vaccine (Standing Order) (1 of 2) 11/12/2012 Pneumococcal Vaccine: 65+ yrs (Standing Order) (1 of 1 - PCV) 02/07/2016 DIABETES HGB A1C Q6 MONTHS (Standing Order) 07/07/2016 01/05/2016, 09/20/2015, 08/14/2015, Additional history exists DIABETIC EYE EXAM 07/31/2016 08/31/2015, , 08/30/2013 DIABETES MICROALBUMIN Q1 YEAR (Standing Order) 08/29/2016 09/29/2015, 08/14/2015, 2015, Additional history exists DIABETES SERUM CREATININE Q1 YEAR (Standing Order) 01/04/2017 01/05/2016, 09/29/2015, 09/20/2015, Additional history exists TETANUS (Standing Order) 08/27/2018 08/27/2008 DIABETES LIPID PROFILE Q5 YEARS (Standing Order) 03/02/2020 03/02/2015, 08/05/2014, 06/14/2014, Additional history exists COLONOSCOPY Q 10 YRS 10/08/2022 10/08/2012 (Previously completed) COVID-19 Vaccine ( season) 2023 11/25/2020 Influenza Vaccine Seasonal (Standing Order) (#1) 2023 09/20/2015, 09/15/2014, 09/13/2013, Additional history exists HCC HHS 21 Diabetes without Complications 10/13/2023 PERTUSSIS (Standing Order) Completed 08/27/2008 HPV Vaccine (Standing Order) Aged Out No longer eligible based on patient's age to complete this topic Advance Directives For more information, please contact: [phone] Latest Code Status on File Code Status [...] 1:19 AM 09/24/2011 2:11 PM Care Teams Technical Recruiter Relationship Specialty Start Date End Date Elsewhere, Pcp PCP - General 09/23/16 Brenda Vang, [place] [address] Family Medicine 10/10/15
== END 2023-11-11 07:38 | disposition home or self-care (01) ==
LOC: NFLDREF 11-12 12:34
PROVIDERS: PCP Family Medicine; Referring Provider Family Medicine; Visit Provider Family Medicine
DX: E78.5 Hyperlipidemia, unspecified (principal); Z79.899 Other long term (current) drug therapy; E11.22 Type 2 diabetes mellitus with diabetic chronic kidney disease; I12.9 Hypertensive chronic kidney disease with stage 1 through stage 4 chronic kidney disease, or unspecified chronic kidney disease; N18.31 Chronic kidney disease, stage 3a; Z79.84 Long term (current) use of oral hypoglycemic drugs
CPT/HCPCS: 80053; 80061; 82607

== ENCOUNTER 2024-03-22 08:38 | Outpatient (CLI) | payer MEDICARE, BC, SELFPAY ==
--- OUTSIDE RECORDS SUMMARY | 2024-03-24 17:29 | XMS_ITS | Referral Summary ---
Author Organization [facility] Address [address] [place] [address] Care Team Providers Care Citrix Administrator Name Role Phone Chantal Madison MD Primary [...] by mouth every morning (0.5 x 5mg) Active metFORMIN (GLUCOPHAGE) 500 MG tablet Take 500 mg by mouth 2 times daily (with meals) Active betamethasone dipropionate (DIPROSONE) 0.05 % external cream Apply topically 2 times daily as needed Active metoprolol tartrate (LOPRESSOR) 50 MG tablet Take 50 mg by mouth 2 times daily Active rosuvastatin (CRESTOR) 5 MG tablet Take 5 mg by mouth every other day Active fish oil-omega-3 fatty acids 1000 MG capsule Take 2 g by mouth 2 times daily Active tamsulosin (FLOMAX) 0.4 MG capsule Take 0.4 mg by mouth every evening Active glucosamine-chondro itin 500-400 MG CAPS per capsule Take 1 capsule by mouth 2 times daily wiith vit c Active aspirin (ASA) 81 MG chewable tablet Take 81 mg by mouth daily Active multivitamin w/minerals (MULTI-VITAMIN) tablet Take 1 tablet by mouth daily Active magnesium oxide (MAG-OX) 400 (240 Mg) MG tablet Take 400 mg by mouth daily Active celecoxib (CELEBREX) 100 MG capsuleIndications: Erectile dysfunction, unspecified erectile dysfunction type Take 1 capsule (100 mg) by mouth daily for 21 days 21 capsule 08/09/2020 Active oxyCODONE (ROXICODONE) 10 MG tabletIndications:E rectile dysfunction, unspecified erectile dysfunction type Take 1 tablet (10 mg) by mouth every 4 hours as needed for moderate to severe pain 12 tablet 08/09/2020 Active gabapentin (NEURONTIN) 300 MG capsuleIndications: Erectile dysfunction, unspecified erectile dysfunction type Take 1 capsule (300 mg) by mouth 3 times daily for 21 days 63 capsule 08/09/2020 Active senna-docusate (SENOKOT-S/PERICOLA CE) 8.6-50 MG [...] Comments Blood Pressure 174/93 10/29/2022 10:25 PM HOT STICK MAN Pulse 63 10/29/2022 10:25 PM HOT STICK MAN Temperature 37.1 ??C (98.8 ??F) 10/29/2022 1 0:25 PM HOT STICK MAN Respiratory Rate 20 10/29/2022 10:2 5 PM HOT STICK MAN Oxygen Saturation 98% 10/29/2022 10: 25 PM HOT STICK MAN Inhaled Oxygen Concentration - - Weight 102.1 kg (225 lb 1.6 oz) 020 11:00 AM CDT Height 177.8 cm (5' 10) 08/08/2020 11: 00 AM CDT Body Mass Index 32.3 08/08/2020 11:00 AM CDT Plan of Treatment Not on file Medical Devices Implanted Type Area Dining Room Supervisor Device Identifier Shelf Expiration Date Model / Serial / Lot Imp Prosthesis Penile Titan Std Assembly Kit [id number] Implanted:Qty: 1 on 08/08/2020 by Carmelo Forte MD at [facility] Penile Implant N/A: Penis COLOPLAST 04/18/2025 [id number] / / [id number] Titan [place]rell Implanted:Qty: 1 on 08/08/2020 by Carmelo Forte MD at [facility] N/A: Penis 05/22/2025 [id number] / / [id number] Titan Cylinder And Pump Implanted:Qty: 1 on 08/08/2020 by Carmelo Forte MD at [facility] N/A: Penis 05/18/2025 [id number] / / [id number] Procedures Procedure Name Priority Date/Time Associated Diagnosis Comments GLUCOSE BY METER Routine 08/09/2020 2:24 AM CDT from Last 3 Months or Most Recently Relevant to Health Maintenance Results * (ABNORMAL) Glucose by meter (08/09/2020 2:24 AM CDT) Glucose 189(H) 70 - 99 mg/dL 08/09/2020 2:31 AM CDT POINT OF CARE TEST, GLUCOSE Comment:Dr/RN Notified 08/09/2020 2:24 AM CDT 08/09/2020 2:31 AM CDT Carmelo Forte MD [facility] POCT POINT OF CARE TEST, GLUCOSE from Last 3 Months or Most Recently Relevant to Health Maintenance Advance Directives For more information, please contact: [phone] * Full Code (Latest Code Status on File) Date Activated Date Inactivated Comments 08/08/2020 4:04 PM 08/09/2020 9:29 PM All basic and advanced life-sustaining interventions are performed as appropriate Question Answer Comments Code status determined by: Discussion with pallavi nt/ legal decision maker Care Teams Citrix Administrator Relationship Specialty Start Date End Date Chantal Madison MD [facility] [address] [place] [address] PCP - General Family Practice 07/24/20
--- OUTSIDE RECORDS SUMMARY | 2024-03-24 17:29 | XMS_ITS | Clinical Summary ---
Author Organization [facility] Address [address] [address] Phone Care Team Providers Care Journal Entry Audit Clerk Name Role Phone Taj Brenda Carter PA-C Unavailable [phone] Elsewhere, Pcp Primary Care Provider Unavailabl e [...] Tab by mouth as needed. 30 Tab 09/17/2011 Active Lancet Devices MISC 1 Each by Does not apply route four times a day. 100 Each 4 05/14/2013 Active ARNAV CONTOUR TEST STRIP strip Test four times daily 100 Each 2 07/18/2014 Active COMPOUNDED RX by INTRACAVERNOSAL route as needed (erectile dysfunction). 09/16/2014 Active betamethasone dipropionate 0.05 % cream Apply to affected area twice daily as needed 45 g 1 01/07/2015 Active Misc. Devices Misc by Does not apply route. 1 Each 0 03/02/2015 Active Magnesium 100 MG Cap Take 1 Tab by mouth as needed. Active Magnesium 250 MG Take 250 mg by mouth one time a day. Active amLODIPine (NORVASC) 2.5 MG tablet Take [...] alternate nostrils with each spray. 16 g 12/14/2016 Active cetirizine (ZYRTEC) 10 MG tablet Take 1 Tab by mouth one time a day. 30 Tab 12/14/2016 Active Active Problems Problem Noted Date [...] Comments Blood Pressure 128/71 12/14/2016 12:13 PM HEDIS ANALYST Pulse 65 12/14/2016 12:13 PM HEDIS ANALYST Temperature 36.8 ??C (98.3 ??F) 12/14/2016 12:[address] Respiratory Rate 18 08/14/2015 1:02 PM HEDIS ANALYST Oxygen Saturation 94% 12/14/2016 12:13 PM HEDIS ANALYST Inhaled Oxygen Concentration - - Weight 123.8 kg (273 lb) 12/14/2016 12:13 PM HEDIS ANALYST Height 177.8 cm (5' 10) 12/14/2016 12:13 PM HEDIS ANALYST Body Mass Index 39.17 12/14/2016 12:13 PM HEDIS ANALYST Plan of Treatment Health Maintenance Due Date Last Done Comments CT Colonography 1950 Cologuard 1950 Colonoscopy 1950 Colorectal Cancer Screening 1950 FIT/FOBT 1950 Sigmoidoscopy 1950 RSV Vaccination (60+ yrs) (Abrysvo/Arexvy) (1 - 1-dose 60+ series) 2011 Shingrix (Zoster recombinant) vaccine (Standing Order) (1 of 2) 11/12/2012 Pneumococcal Vaccine: 65+ yrs (Standing Order) (1 of 1 - PCV) 02/07/2016 DIABETES HGB A1C Q6 MONTHS (Standing Order) 07/07/2016 01/05/2016, 09/20/2015, 08/14/2015, Additional history exists DIABETES MICROALBUMIN Q1 YEAR (Standing Order) 07/14/2016 08/14/2015, 08/05/2014, 07/13/2013 DIABETIC EYE EXAM 07/31/2016 08/31/2015, , 08/30/2013 DIABETES SERUM CREATININE Q1 YEAR (Standing Order) 01/04/2017 01/05/2016, 09/29/2015, 09/20/2015, Additional history exists TETANUS (Standing Order) 08/27/2018 08/27/2008 DIABETES LIPID PROFILE Q5 YEARS (Standing Order) 03/02/2020 03/02/2015, 08/05/2014, 06/14/2014, Additional history exists COLONOSCOPY Q 10 YRS 10/08/2022 10/08/2012 (Previously completed) COVID-19 Vaccine ( season) 2023 11/25/2020 Influenza Vaccine Seasonal (Standing Order) (#1) 2023 09/20/2015, 09/15/2014, 09/13/2013, Additional history exists PERTUSSIS (Standing Order) Completed 08/27/2008 HPV Vaccine (Standing Order) Aged Out No longer eligible based on patient's age to complete this topic Hepatitis B Vaccine (Standing Order) Aged Out No longer eligible based on patient's age to complete this topic Procedures Procedure Name Priority Date/Time Associated Diagnosis Comments HEMOGLOBIN A1C Routine 01/05/2016 8:10 AM CDT Type 2 diabetes mellitus without complication (HCC) BASIC METABOLIC PANEL Routine 01/05/2016 8:10 AM CDT Type 2 diabetes mellitus without complication (HCC) EYE EXAM ESTABLISHED PATIENT COMPREHENSIVE Routine 08/31/2015 MICROALBUMIN/CREATINI NE RATIO, URINE Routine 08/14/2015 2:00 PM HEDIS ANALYST Type 2 diabetes mellitus without complication (HCC) LIPID PROFILE Routine 03/02/2015 8:23 AM CDT Type 2 diabetes mellitus without complication (HCC) from Last 3 Months or Most Recently Relevant to Health Maintenance Results * (ABNORMAL) BASIC MET PROF (01/05/2016 8:10 AM CDT) Sodium 141 134 - 143 mEq/L 01/05/2016 1:55 PM CDT [facility] POTASSIUM 4.8 3.4 - 5.1 mEq/L 01/05/2016 1:55 PM CDT [facility] Chloride 108 99 - 110 mEq/L 01/05/2016 1:55 PM CDT [facility] CO2 25 19 - 29 mEq/L 01/05/2016 1:55 PM CDT [facility] BUN 23 5 - 24 mg/dL 01/05/2016 1:55 [facility] Creatinine 1.54(H) 0.70 - 1.20 mg/dL 01/05/2016 1:55 PM CDT [facility] GFR CALC 46(A) 01/05/2016 1:55 PM T [facility] Comment:GFR Normal: >60 mL/m in/1.73 m2 Calcium 9.4 8.4 - 10.5 mg/dL 01/05/2016 1:55 PM CDT [facility] ANION GAP 8 3 - 15 01/05/2016 1:55 PM [facility] GLUCOSE 139(H) 70 - 100 mg/dL 01/05/2016 1:55 PM T [facility] Comment: Current ADA criteria are ?Normal: 70-99 mg/dL ?Impaired Fasting Glucose: 100-125 mg/dL ?Diabetes Mellitus: at or above 126 mg/dL The diagnosis of diabetes must be confirmed on a subsequent day by measuring FPG, 2-hr PG or random plasma glucose (if symptoms are present). 01/05/2016 8:10 AM CDT 01/05/2016 8:10 AM CDT Richardson Graham MD EC CHEMISTRY ORDERAB LES Performing Organization Address City/State/[facility] Co de Phone Number [facility] [address] * (ABNORMAL) A1C(HGB AIC) (01/05/2016 8:10 AM CDT) A1C (HGB AIC) 6.3(H) 4.0 - 6.0 % 01/05/2016 8:46 AM CDT [facility] Est Average Glucose 134 mg/dL 01/05/2016 8:46 AM CDT [facility] Comment: According to ADA guidelines, the estimated average glucose (eAG) will be calculated for all HgbA1c results. 01/05/2016 8:10 AM CDT 01/05/2016 8:10 AM CDT Richardson Graham MD EC CHEMISTRY ORDERAB LES ABN Performing Organization Address [facility]/ZIP Co de Phone Number [facility] [address] * EYE EXAM & TREATMENT (08/31/2015) Pcp Elsewhere EC PROCEDURES * MICROALB,RANDOM (08/14/2015 2:00 PM HEDIS ANALYST) Urine Microalbumin 2.7 mg/dL 08/14/2015 8:27 PM HEDIS ANALYST [facility] URINE CREATININE 136.4 mg/dL 08/14/20 15 8:27 PM HEDIS ANALYST [facility] Urine Microalbumin/Crea tinine Ratio 20 0 - 29 08/14/2015 8:27 PM HEDIS ANALYST [facility] 08/14/2015 2:00 PM HEDIS ANALYST 08/14/2015 7:38 PM HEDIS ANALYST Karen Nielson APRN, DESIGN MAKER EC URINE OR DERABLES Performing Organization Address City/[facility]/ZIP Co de Phone Number [facility] * (ABNORMAL) LIPID PROFILE (03/02/2015 8:23 AM CDT) Cholesterol 160 114 - 200 mg/dL 03/02/2015 8:54 AM CDT [facility] Comment: Total Cholesterol Reference Ranges Desirable: ? <200 ?mg/dL Borderline High: ?? 200-239 mg/dL High: ?>239 ?mg/dL TRIGLYCERIDE 172 10 - 200 mg/dL 03/02/2015 8:54 AM CDT [facility] Comment: ?Triglyceride If patient is non-fasting, the result of the triglyceride is invalid. ?? Triglyceride Reference Ranges ?? Normal: ?10-200 mg/dL ?? Borderline High: ??150-200 mg/dL ?? High: ? 201-499 mg/dL ?? Very High: ? =500 ?mg/dL HDL CHOLESTEROL 28(L) 40 - 60 mg/dL 03/02/2015 8:54 AM CDT [facility] LDL- CALCULATED 98 mg/dL 5 8:54 AM CDT [facility] Comment: LDL Cholesterol Reference Ranges Optimal: ?<100 ? mg/dL Near Optimal: ? 100-129 ??mg/dL Borderline High: ??130-159 ??mg/dL High: ? 160-189 ??mg/dL Very High: ?>189 ? mg/dL 03/02/2015 8:23 AM CDT 03/02/2015 8:23 AM CDT Narrative [facility] - 03/02/2015 8:54 AM CDT Fasting Richardson Graham MD EC CHEMISTRY ORDERAB LES ABN Performing Organization Address City/State/[facility] Co de Phone Number [facility] [place], [place] from Last 3 Months or Most Recently Relevant to Health Maintenance Advance Directives For more information, please contact: [phone] * Full Code (Latest Code Status on File) Date Activated Date Inactivated Comments 10/02/2011 12:34 PM 10/07/2011 2:56 PM * Full Code Date Activated Date Inactivated Comments 09/25/2011 4:02 PM 09/26/2011 2:47 PM * Full Code Date Activated Date Inactivated Comments 09/25/2011 11:49 AM 09/25/2011 4:02 PM * Full Code Date Activated Date Inactivated Comments 09/25/2011 11:49 AM 09/25/2011 11:49 AM * Full Code Date Activated Date Inactivated Comments 09/22/2011 1:19 AM 09/24/2011 2:11 PM Care Teams Journal Entry Audit Clerk Relationship Specialty Start Date End Date Elsewhere, Pcp PCP - General 09/23/16 Brenda Vang, LAZC [address] [facility] [place] [id number] Family Medicine 10/10/15
--- OUTSIDE RECORDS SUMMARY | 2024-03-24 17:29 | XMS_ITS | Clinical Summary ---
Author Organization [facility] Address [place], [place] [address] Care Team Providers Care Cloud Architect Name Role Phone Chantal Madison MD Primary Care Provider + Allergies Active Allergy Reactions Criticality Noted Date Comments Adhesive Rash 09/15/2012 Cefepime Rash 04/14/2017 Penicillins Anaphylaxis,Itching High 07/08/2016 Rash, swelling, redness Vancomycin Shortness Of Breath,Rash 04/14/2017 Medications Medication Sig Dispensed Refills Start Date End Date Status multivitamin (MVI) tablet Take 1 tablet by mouth once daily. 0 07/08/2016 Active glucosamine-chondroit in-vit c-manganese, 510-054-55-3 mg, (COSAMIN DS, WITH MANGANESE,) 243-638-54-3 mg capsule Take 1 capsule by mouth 2 times daily. Active magnesium gluconate (MAGONATE) 500 mg Take 1,000 mg by mouth once daily. Active fish oil-omega-3 fatty acids (FISH OIL) 1,200-360 mg cap Take 1 capsule by mouth 2 times daily. Active blood sugar diagnostic (ASCENSIA CONTOUR) strip Test four times daily 07/18/2014 Active betamethasone dipropionate 0.05% (DIPROSONE 0.05% CREAM) 0.05 % cream Apply to affected area twice daily as needed 01/07/2015 Active medication order composer Zinc 15 mg once daily. 0 10/26/2018 Active rosuvastatin (CRESTOR) 5 mg tablet 12/08/2019 Act dawson glyBURIDE (MICRONASE; DIABETA) 5 mg tablet Take 2.5 mg by mouth. Active metFORMIN (GLUCOPHAGE) 500 mg tablet Take 500 mg by mouth. Active Myrbetriq 50 mg tabletIndications:Uri nary frequency [...] booster 07/08/2022 07/08/2012, 08/27/2008 COVID-19 vaccine series ( season) 2023 07/21/2022, 01/15/2022, 08/09/2021, Additional history exists Influenza for age 65+ 06/13/2024 07/24/2016 Tdap Completed 07/08/2012, 08/27/2008 Procedures Procedure Name Priority Date/Time Associated Diagnosis Comments LIPID PANEL W REFLEX MEASURED LDL Routine 07/24/2016 7:54 AM CDT Type 2 diabetes mellitus without complication, without long-term current use of insulin (HC) from Last 3 Months or Most Recently Relevant to Health Maintenance Results * (ABNORMAL) LIPID PANEL W REFLEX MEASURED LDL (07/24/2016 7:54 AM CDT) CHOLESTEROL,TOTAL 165 100 - 199 mg/dL 07/24/2016 8:30 AM CDT [facility] TRIGLYCERIDES 182(H) <150 mg/dL 07/24/2016 8:30 AM CDT [facility] HDL CHOLESTEROL 31(L) >40 mg/dL 6 8:30 AM CDT [facility] NON-HDL CHOLESTEROL 134 <145 mg/dl 07/24/2016 8:30 AM CDT [facility] CHOL/HDL RATIO 5.32(H) <4.50 07/24/2016 8:30 AM CDT [facility] LDL CHOLESTEROL 98 <=130 mg/dL 07/24/2016 8:30 AM CDT [facility] PATIENT STATUS FASTING 07/24/2016 8:30 AM CDT [facility] Blood BLOOD SPECIMEN / Unknown Venipuncture / Unknown 07/24/2016 7:54 AM CDT 07/24/2016 7:54 AM CDT Jovanni Harrington MD CHEMISTRY [facility] [address] [place] [address], from Last 3 Months or Most Recently Relevant to Health Maintenance Advance Directives * Full Code (Latest Code Status on File) Date Activated Date Inactivated Comments 04/13/2017 12:22 AM 04/16/2017 12:34 PM Care Teams Cloud Architect Relationship Specialty Start Date End Date Chantal Madison MD [address] [place] [id number] PCP - General Family Practice 04/18/17
== END 2024-03-22 08:39 | disposition home or self-care (01) ==
LOC: NFLDREF 03-24 17:27
PROVIDERS: PCP Family Medicine; Referring Provider Family Medicine; Visit Provider Family Medicine
DX: E78.5 Hyperlipidemia, unspecified (principal); N40.1 Benign prostatic hyperplasia with lower urinary tract symptoms; R35.0 Frequency of micturition; E11.9 Type 2 diabetes mellitus without complications; I10 Essential (primary) hypertension; Z79.899 Other long term (current) drug therapy; Z12.5 Encounter for screening for malignant neoplasm of prostate; Z13.21 Encounter for screening for nutritional disorder
CPT/HCPCS: 80053; 80061; 82043; 82570; 82607; G0103

== ENCOUNTER 2024-04-08 10:06 | Outpatient (CLI) | payer MEDICARE, BC, SELFPAY ==
--- OUTSIDE RECORDS SUMMARY | 2024-04-09 11:32 | XMS_ITS | Clinical Summary ---
Author Organization [facility] Address [place], [place] [address] Care Team Providers Care Jewel Diameter Gauger Name Role Phone Chantal Madison MD Primary Care Provider + Allergies Active Allergy Reactions Criticality Noted Date Comments Adhesive Rash 09/15/2012 Cefepime Rash 04/14/2017 Penicillins Anaphylaxis,Itching High 07/08/2016 Rash, swelling, redness Vancomycin Shortness Of Breath,Rash 04/14/2017 Medications Medication Sig Dispensed Refills Start Date End Date Status multivitamin (MVI) tablet Take 1 tablet by mouth once daily. 0 07/08/2016 Active glucosamine-chondroit in-vit c-manganese, 066-391-59-3 mg, (COSAMIN DS, WITH MANGANESE,) 452-150-43-3 mg capsule Take 1 capsule by mouth [...] - 199 mg/dL 07/24/2016 8:30 AM CDT [facility] TRIGLYCERIDES 182(H) <150 mg/dL 07/24/2016 8:30 AM CDT [facility] HDL CHOLESTEROL 31(L) >40 mg/dL 6 8:30 AM CDT [facility] NON-HDL CHOLESTEROL 134 <145 mg/dl 07/24/2016 8:30 AM CDT [facility] CHOL/HDL RATIO 5.32(H) <4.50 07/24/2016 8:30 AM CDT [facility] LDL CHOLESTEROL 98 <=130 mg/dL 07/24/2016 8:30 AM CDT [facility] PATIENT STATUS FASTING 07/24/2016 8:30 AM CDT [facility] Blood BLOOD SPECIMEN / Unknown Venipuncture / Unknown 07/24/2016 7:54 AM CDT 07/24/2016 7:54 AM CDT Jovanni Harrington MD CHEMISTRY [facility] [address] [place] [phone], from Last 3 Months or Most Recently Relevant to Health Maintenance Advance Directives * Full Code (Latest Code Status on File) Date Activated Date Inactivated Comments 04/13/2017 12:22 AM 04/16/2017 12:34 PM Care Teams Jewel Diameter Gauger Relationship Specialty Start Date End Date Chantal Madison MD [address] [place] [id number] PCP - General Family Practice 04/18/17
--- OUTSIDE RECORDS SUMMARY | 2024-04-09 11:32 | XMS_ITS | Referral Summary ---
Author Organization [facility] Address [address] [place] [id number] Care Team Providers Care Home Service Advisor Name Role Phone Chantal Madison MD Primary [...] Comments Blood Pressure 174/93 10/29/2022 10:25 PM BACKFILLER Pulse 63 10/29/2022 10:25 PM BACKFILLER Temperature 37.1 ??C (98.8 ??F) 10/29/2022 1 0:25 PM BACKFILLER Respiratory Rate 20 10/29/2022 10:2 5 PM BACKFILLER Oxygen Saturation 98% 10/29/2022 10: 25 PM BACKFILLER Inhaled Oxygen Concentration - - Weight 102.1 kg (225 lb 1.6 oz) 020 11:00 AM CDT Height 177.8 cm (5' 10) 08/08/2020 11: 00 AM CDT Body Mass Index 32.3 08/08/2020 11:00 AM CDT Plan of Treatment Not on file Medical Devices Implanted Type Area [employer] Sigma Black Belt Engineer Device Identifier Shelf Expiration Date Model / Serial / Lot Imp Prosthesis Penile Titan Std Assembly Kit [id number] Implanted:Qty: 1 on 08/08/2020 by Carmelo Forte MD at [facility] Penile Implant N/A: Penis COLOPLAST 04/18/2025 [id number] / / [id number] Titan [place] Implanted:Qty: 1 on 08/08/2020 by Carmelo Forte MD at [facility] N/A: Penis 05/22/2025 [id number] / / [id number] Titan Cylinder And Pump Implanted:Qty: 1 on 08/08/2020 by Carmelo Forte MD at [facility] N/A: Penis 05/18/2025 [id number] / / [id number] Procedures Procedure Name Priority Date/Time Associated Diagnosis [...] 08/09/2020 2:31 AM CDT Carmelo Forte MD [facility] POCT POINT OF CARE TEST, GLUCOSE from Last 3 Months or Most Recently Relevant to Health Maintenance Advance Directives For more information, please contact: [phone] * Full Code (Latest Code Status on File) Date Activated Date Inactivated Comments 08/08/2020 4:04 PM 08/09/2020 9:29 PM All basic and advanced life-sustaining interventions are performed as appropriate Question Answer Comments Code status determined by: Discussion with pallavi nt/ legal decision maker Care Teams Home Service Advisor Relationship Specialty Start Date End Date Chantal Madison MD [facility] [address] [place] [address] PCP - General Family Practice 07/24/20
--- OUTSIDE RECORDS SUMMARY | 2024-04-09 11:32 | XMS_ITS | Clinical Summary ---
Author Organization [facility] Address [address] [address] Phone Care Team Providers Care Basket Hand Weaver Name Role Phone Taj Brenda Carter PA-C Unavailable [phone] Elsewhere, Pcp Primary Care Provider Unavailabl e [...] Comments Blood Pressure 128/71 12/14/2016 12:13 PM RUBBER FLAP CUTTER Pulse 65 12/14/2016 12:13 PM RUBBER FLAP CUTTER Temperature 36.8 ??C (98.3 ??F) 12/14/2016 12:[address] Respiratory Rate 18 08/14/2015 1:02 PM RUBBER FLAP CUTTER Oxygen Saturation 94% 12/14/2016 12:13 PM RUBBER FLAP CUTTER Inhaled Oxygen Concentration - - Weight 123.8 kg (273 lb) 12/14/2016 12:13 PM RUBBER FLAP CUTTER Height 177.8 cm (5' 10) 12/14/2016 12:13 PM RUBBER FLAP CUTTER Body Mass Index 39.17 12/14/2016 12:13 PM RUBBER FLAP CUTTER Plan of Treatment Health Maintenance Due Date [...] Q 10 YRS 10/08/2022 10/08/2012 (Previously completed) Influenza Vaccine Seasonal (Standing Order) (Season Ended) 2024 09/20/2015, 09/15/2014, 09/13/2013, Additional history exists PERTUSSIS [...] NE RATIO, URINE Routine 08/14/2015 2:00 PM RUBBER FLAP CUTTER Type 2 diabetes mellitus without complication (HCC) LIPID PROFILE Routine 03/02/2015 8:23 AM CDT Type 2 diabetes mellitus without complication (HCC) from Last 3 Months or Most Recently Relevant to Health Maintenance Results * (ABNORMAL) BASIC MET PROF (01/05/2016 8:10 AM CDT) Sodium 141 134 - 143 mEq/L 01/05/2016 1:55 PM CDT [facility] POTASSIUM 4.8 3.4 - 5.1 mEq/L 01/05/2016 1:55 PM CDT [facility] Chloride 108 99 - 110 mEq/L 01/05/2016 1:55 PM CDT [facility] CO2 25 19 - 29 mEq/L 01/05/2016 1:55 PM CDT [facility] BUN 23 5 - 24 mg/dL 01/05/2016 1:55 PM CDT [facility] Creatinine 1.54(H) 0.70 - 1.20 mg/dL 01/05/2016 1:55 PM CDT [facility] GFR CALC 46(A) 01/05/2016 1:55 PM CDT [facility] Comment:GFR Normal: >60 mL/m in/1.73 m2 Calcium 9.4 8.4 - 10.5 mg/dL 01/05/2016 1:55 PM CDT [facility] ANION GAP 8 3 - 15 01/05/2016 1:55 PM CDT [facility] GLUCOSE 139(H) 70 - 100 mg/dL 01/05/2016 1:55 PM CDT [facility] Comment: Current ADA criteria are ?Normal: 70-99 mg/dL ?Impaired Fasting Glucose: 100-125 mg/dL ?Diabetes Mellitus: at or above 126 mg/dL The diagnosis of diabetes must be confirmed on a subsequent day by measuring FPG, 2-hr PG or random plasma glucose (if symptoms are present). 01/05/2016 8:10 AM CDT 01/05/2016 8:10 AM CDT Richardson Graham MD EC CHEMISTRY ORDERAB LES [facility] [address] * (ABNORMAL) A1C(HGB AIC) (01/05/2016 8:10 AM CDT) A1C (HGB AIC) 6.3(H) 4.0 - 6.0 % 01/05/2016 8:46 AM CDT [facility] Est Average Glucose 134 mg/dL 01/05/2016 8:46 AM CDT [facility] Comment: According to ADA guidelines, the estimated average glucose (eAG) will be calculated for all HgbA1c results. 01/05/2016 8:10 AM CDT 01/05/2016 8:10 AM CDT Richardson Graham MD EC CHEMISTRY ORDERAB LES ABN Performing Organization Address [facility] de Phone Number [facility] [address] * EYE EXAM & TREATMENT (08/31/2015) Pcp Elsewhere EC PROCEDURES * MICROALB,RANDOM (08/14/2015 2:00 PM RUBBER FLAP CUTTER) Urine Microalbumin 2.7 mg/dL 08/14/2015 8:27 PM RUBBER FLAP CUTTER [facility] URINE CREATININE 136.4 mg/dL 08/14/20 15 8:27 PM RUBBER FLAP CUTTER [facility] Urine Microalbumin/Crea tinine Ratio 20 0 - 29 08/14/2015 8:27 PM RUBBER FLAP CUTTER [facility] 08/14/2015 2:00 PM RUBBER FLAP CUTTER 08/14/2015 7:38 PM RUBBER FLAP CUTTER Karen Nielson APRN, BULB SORTER EC URINE OR DERABLES Performing Organization Address [facility] de Phone Number [facility] * (ABNORMAL) LIPID PROFILE (03/02/2015 8:23 AM CDT) Cholesterol 160 114 - 200 mg/dL 03/02/2015 8:54 AM CDT [facility] Comment: Total Cholesterol Reference Ranges Desirable: ? <200 ?mg/dL Borderline High: ?? 200-239 mg/dL High: ?>239 ?mg/dL TRIGLYCERIDE 172 10 - 200 mg/dL 03/02/2015 8:54 AM CDT [facility] Comment: ?Triglyceride If patient is non-fasting, the result of the triglyceride is invalid. ?? Triglyceride Reference Ranges ?? Normal: ?10-200 mg/dL ?? Borderline High: ??150-200 mg/dL ?? High: ? 201-499 mg/dL ?? Very High: ? =500 ?mg/dL HDL CHOLESTEROL 28(L) 40 - 60 mg/dL 03/02/2015 8:54 AM CDT [facility] LDL- CALCULATED 98 mg/dL 5 8:54 AM CDT [facility] Comment: LDL Cholesterol Reference Ranges Optimal: ?<100 ? mg/dL Near Optimal: ? 100-129 ??mg/dL Borderline High: ??130-159 ??mg/dL High: ? 160-189 ??mg/dL Very High: ?>189 ? mg/dL 03/02/2015 8:23 AM CDT 03/02/2015 8:23 AM CDT Narrative [facility] - 03/02/2015 8:54 AM CDT Fasting Richardson Graham MD EC CHEMISTRY ORDERAB LES ABN [place], [place] from Last 3 Months or Most Recently Relevant to Health Maintenance Advance Directives For more information, please contact: [phone] * Full Code (Latest Code Status on [...] 1:19 AM 09/24/2011 2:11 PM Care Teams Basket Hand Weaver Relationship Specialty Start Date End Date Elsewhere, Pcp PCP - General 09/23/16 Brenda Vang, PAAdrianaC 2023 [facility] [place] [id number] Family Medicine 10/10/15
--- OUTSIDE RECORDS SUMMARY | 2024-04-09 11:32 | XMS_ITS | Clinical Summary ---
Author Organization [place] Address [address] [place] [address] Care Team Providers Care Knitting Machine Fixer Head Name Role Phone Chantal Madison MD Primary [...] Comments Blood Pressure 174/93 10/29/2022 10:25 PM BRAILLE CODER Pulse 63 10/29/2022 10:25 PM BRAILLE CODER Temperature 37.1 ??C (98.8 ??F) 10/29/2022 1 0:25 PM BRAILLE CODER Respiratory Rate 20 10/29/2022 10:2 5 PM BRAILLE CODER Oxygen Saturation 98% 10/29/2022 10: 25 PM BRAILLE CODER Inhaled Oxygen Concentration - - Weight 102.1 kg (225 lb 1.6 oz) 020 11:00 AM CDT Height 177.8 cm (5' 10) 08/08/2020 11: 00 AM CDT Body Mass Index 32.3 08/08/2020 11:00 AM CDT Plan of Treatment Health Maintenance Due Date Last Done Comments ADVANCE CARE PLANNING 1950 ANNUAL REVIEW OF HM ORDERS 1950 CT COLONOGRAPHY 1951 FIT 1951 FLEX SIG 1950 LIPID 1951 sDNA (Cologuard) 1951 COLONOSCOPY 1961 COLORECTAL CANCER SCREENING 1961 HEPATITIS C SCREENING 1969 RSV VACCINE ( & 60+) (1 - 1-dose 60+ series) 2011 FALL RISK ASSESSMENT 02/07/2016 MEDICARE ANNUAL WELLNESS VISIT 09/20/2016 09/20/2015, 09/15/2014, 09/13/2013, Additional history exists COVID-19 Vaccine ( season) 2023 07/21/2022, 01/15/2022, 08/09/2021, Additional history exists GLUCOSE 08/09/2023 08/09/2020, 07/14, 08/08/2020, Additional history exists PHQ-2 (once per calendar year) 2023 INFLUENZA VACCINE (Season Ended) 2024 07/26/2022, 07/23/2021, 07/18/2020, Additional history exists DTAP/TDAP/TD IMMUNIZATION (4 - Td or Tdap) [...] this topic Medical Devices Implanted Type Area Payroll Consultant Device Identifier Shelf Expiration Date Model / Serial / Lot Imp Prosthesis Penile Titan Std Assembly Kit [id number] Implanted:Qty: 1 on 08/08/2020 by Carmelo Forte MD at [facility] Penile Implant N/A: Penis COLOPLAST 04/18/2025 [id number] / / [id number] Titan [place] Implanted:Qty: 1 on 08/08/2020 by Carmelo Forte MD at [facility] N/A: Penis 05/22/2025 [id number] / / [id number] Titan Cylinder And Pump Implanted:Qty: 1 on 08/08/2020 by Carmelo Forte MD at [facility] N/A: Penis 05/18/2025 [id number] / / [id number] Procedures Procedure Name Priority Date/Time Associated Diagnosis Comments GLUCOSE BY METER Routine 08/09/2020 2:24 AM CDT from Last 3 Months or Most Recently Relevant to Health Maintenance Results * (ABNORMAL) Glucose by meter (08/09/2020 2:24 AM CDT) Glucose 189(H) 70 - 99 mg/dL 08/09/2020 2:31 AM CDT POINT OF CARE TEST, GLUCOSE Comment:/RN Notified 08/09/2020 2:24 AM CDT 08/09/2020 2:31 AM CDT Carmelo Forte MD [facility] [place] [place] POCT POINT OF CARE TEST, GLUCOSE from Last 3 Months or Most Recently Relevant to Health Maintenance Advance Directives For more information, please contact: [phone] * Full Code (Latest Code Status on File) Date Activated Date Inactivated Comments 08/08/2020 4:04 PM 08/09/2020 9:29 PM All basic and advanced life-sustaining interventions are performed as appropriate Question Answer Comments Code status determined by: Discussion with joshe nt/ legal decision maker Care Teams Knitting Machine Fixer Head Relationship Specialty Start Date End Date Chantal Madison MD [facility] & [address] [address] PCP - General Family Practice 07/24/20
== END 2024-04-08 10:07 | disposition home or self-care (01) ==
LOC: NFLDREF 04-09 11:31
PROVIDERS: PCP Family Medicine; Referring Provider Family Medicine; Visit Provider Family Medicine
DX: I10 Essential (primary) hypertension (principal)
CPT/HCPCS: 80048

== ENCOUNTER 2024-04-22 10:08 | Outpatient (CLI) | payer MEDICARE, BC, SELFPAY ==
--- OUTSIDE RECORDS SUMMARY | 2024-04-22 15:41 | XMS_ITS | Clinical Summary ---
Author Organization [facility] Address [place], [place] [address] Care Team Providers Care Fountain Waitress/Waiter Name Role Phone Chantal Madison MD Primary Care Provider + Allergies Active Allergy Reactions Criticality Noted Date Comments Adhesive Rash 09/15/2012 Cefepime Rash 04/14/2017 Penicillins Anaphylaxis,Itching High 07/08/2016 Rash, swelling, redness Vancomycin Shortness Of Breath,Rash 04/14/2017 Medications Medication Sig Dispensed Refills Start Date End Date Status multivitamin (MVI) tablet Take 1 tablet by mouth once daily. 0 07/08/2016 Active glucosamine-chondroit in-vit c-manganese, [phone] mg, (COSAMIN DS, WITH MANGANESE,) [phone] mg capsule Take 1 capsule by mouth [...] - 199 mg/dL 07/24/2016 8:30 AM CDT [facility] TRIGLYCERIDES 182(H) <150 mg/dL 07/24/2016 8:30 AM CDT [facility] HDL CHOLESTEROL 31(L) >40 mg/dL 6 8:30 AM CDT [facility] NON-HDL CHOLESTEROL 134 <145 mg/dl 07/24/2016 8:30 AM CDT [facility] CHOL/HDL RATIO 5.32(H) <4.50 07/24/2016 8:30 AM CDT [facility] LDL CHOLESTEROL 98 <=130 mg/dL 07/24/2016 8:30 AM CDT [facility] PATIENT STATUS FASTING 07/24/2016 8:30 AM CDT [facility] Blood BLOOD SPECIMEN / Unknown Venipuncture / Unknown 07/24/2016 7:54 AM CDT 07/24/2016 7:54 AM CDT Jovanni Harrington MD CHEMISTRY [facility] [address] [place] [address], from Last 3 Months or Most Recently Relevant to Health Maintenance Advance Directives * Full Code (Latest Code Status on File) Date Activated Date Inactivated Comments 04/13/2017 12:22 AM 04/16/2017 12:34 PM Care Teams Fountain Waitress/Waiter Relationship Specialty Start Date End Date Chantal Madison MD [address] [place] [address] PCP - General Family Practice 04/18/17
--- OUTSIDE RECORDS SUMMARY | 2024-04-22 15:41 | XMS_ITS | Referral Summary ---
Author Organization [place] Address [address] [place] [address] Care Team Providers Care Math Professor Name Role Phone Chantal Madison MD Primary [...] Comments Blood Pressure 174/93 10/29/2022 10:25 PM BLOCK STACKER Pulse 63 10/29/2022 10:25 PM BLOCK STACKER Temperature 37.1 ??C (98.8 ??F) 10/29/2022 1 0:25 PM BLOCK STACKER Respiratory Rate 20 10/29/2022 10:2 5 PM BLOCK STACKER Oxygen Saturation 98% 10/29/2022 10: 25 PM BLOCK STACKER Inhaled Oxygen Concentration - - Weight 102.1 kg (225 lb 1.6 oz) 020 11:00 AM CDT Height 177.8 cm (5' 10) 08/08/2020 11: 00 AM CDT Body Mass Index 32.3 08/08/2020 11:00 AM CDT Plan of Treatment Not on file Medical Devices Implanted Type Area Amusement Ride Operator Device Identifier Shelf Expiration Date Model / Serial / Lot Imp Prosthesis Penile Titan Std Assembly Kit [id number] Implanted:Qty: 1 on 08/08/2020 by Carmelo Forte MD at [facility] Penile Implant N/A: Penis COLOPLAST 04/18/2025 [id number] / / [id number] Titan [place] Implanted:Qty: 1 on 08/08/2020 by Carmelo Forte MD at [facility] N/A: Penis 05/22/2025 [id number] / / [id number] Titan Cylinder And Pump Implanted:Qty: 1 on 08/08/2020 by Carmelo Forte MD at [facility] N/A: Penis 05/18/2025 [id number] / / [id number] Procedures Procedure Name Priority Date/Time Associated Diagnosis [...] Advance Directives For more information, please contact: [phone] * Full Code (Latest Code Status on File) Date Activated Date Inactivated Comments 08/08/2020 4:04 PM 08/09/2020 9:29 PM All basic and advanced life-sustaining interventions are performed as appropriate Question Answer Comments Code status determined by: Discussion with pallavi nt/ legal decision maker Care Teams Math Professor Relationship Specialty Start Date End Date Chantal Madison MD [facility] [address] [place] [address] PCP - General Family Practice 07/24/20
--- OUTSIDE RECORDS SUMMARY | 2024-04-22 15:41 | XMS_ITS | Clinical Summary ---
Author Organization [facility] Address [address] [address] Phone Care Team Providers Care Beverage Specialist Name Role Phone Taj Brenda Carter PA-C Unavailable [phone] Elsewhere, Pcp Primary Care Provider Unavailabl e [...] Comments Blood Pressure 128/71 12/14/2016 12:13 PM SOLAR THERMAL INSTALLER Pulse 65 12/14/2016 12:13 PM SOLAR THERMAL INSTALLER Temperature 36.8 ??C (98.3 ??F) 12/14/2016 12:[address] Respiratory Rate 18 08/14/2015 1:02 PM SOLAR THERMAL INSTALLER Oxygen Saturation 94% 12/14/2016 12:13 PM SOLAR THERMAL INSTALLER Inhaled Oxygen Concentration - - Weight 123.8 kg (273 lb) 12/14/2016 12:13 PM SOLAR THERMAL INSTALLER Height 177.8 cm (5' 10) 12/14/2016 12:13 PM SOLAR THERMAL INSTALLER Body Mass Index 39.17 12/14/2016 12:13 PM SOLAR THERMAL INSTALLER Plan of Treatment Health Maintenance Due Date [...] NE RATIO, URINE Routine 08/14/2015 2:00 PM SOLAR THERMAL INSTALLER Type 2 diabetes mellitus without complication (HCC) LIPID PROFILE Routine 03/02/2015 8:23 AM CDT Type 2 diabetes mellitus without complication (HCC) from Last 3 Months or Most Recently Relevant to Health Maintenance Results * (ABNORMAL) BASIC MET PROF (01/05/2016 8:10 AM CDT) Sodium 141 134 - 143 mEq/L 01/05/2016 1:55 PM CDT [facility] POTASSIUM 4.8 3.4 - 5.1 mEq/L 01/05/2016 1:55 PM CDT [facility] Chloride 108 99 - 110 mEq/L 01/05/2016 1:55 PM CDT [facility] CO2 25 19 - 29 mEq/L 01/05/2016 1:55 PM CDT [facility] BUN 23 5 - 24 mg/dL 01/05/2016 1:55 PM CDT [facility] Creatinine 1.54(H) 0.70 - 1.20 mg/dL 01/05/2016 1:55 PM CDT [facility] GFR CALC 46(A) 01/05/2016 1:55 PM CDT [facility] Comment:GFR Normal: >60 mL/m in/1.73 m2 Calcium 9.4 8.4 - 10.5 mg/dL 01/05/2016 1:55 PM CDT [facility] ANION GAP 8 3 - 15 01/05/2016 1:55 PM CDT [facility] GLUCOSE 139(H) 70 - 100 mg/dL 01/05/2016 1:55 PM CDT [facility] Comment: Current ADA criteria are ?Normal: 70-99 mg/dL ?Impaired Fasting Glucose: 100-125 mg/dL ?Diabetes Mellitus: at or above 126 mg/dL The diagnosis of diabetes must be confirmed on a subsequent day by measuring FPG, 2-hr PG or random plasma glucose (if symptoms are present). 01/05/2016 8:10 AM CDT 01/05/2016 8:10 AM CDT Richardson Graham MD EC CHEMISTRY ORDERAB LES [facility] [address] * (ABNORMAL) A1C(HGB AIC) (01/05/2016 8:10 AM CDT) A1C (HGB AIC) 6.3(H) 4.0 - 6.0 % 01/05/2016 8:46 AM CDT [facility] Est Average Glucose 134 mg/dL 01/05/2016 8:46 AM CDT [facility] Comment: According to ADA guidelines, the estimated average glucose (eAG) will be calculated for all HgbA1c results. 01/05/2016 8:10 AM CDT 01/05/2016 8:10 AM CDT Richardson Graham MD EC CHEMISTRY ORDERAB LES ABN Performing Organization Address [facility] de Phone Number [facility] [address] * EYE EXAM & TREATMENT (08/31/2015) Pcp Elsewhere EC PROCEDURES * MICROALB,RANDOM (08/14/2015 2:00 PM SOLAR THERMAL INSTALLER) Urine Microalbumin 2.7 mg/dL 08/14/2015 8:27 PM SOLAR THERMAL INSTALLER [facility] URINE CREATININE 136.4 mg/dL 08/14/20 15 8:27 PM SOLAR THERMAL INSTALLER [facility] Urine Microalbumin/Crea tinine Ratio 20 0 - 29 08/14/2015 8:27 PM SOLAR THERMAL INSTALLER [facility] 08/14/2015 2:00 PM SOLAR THERMAL INSTALLER 08/14/2015 7:38 PM SOLAR THERMAL INSTALLER Karen Nielson APRN, TUBE FITTER EC URINE OR DERABLES Performing Organization Address [facility] de Phone Number [facility] * (ABNORMAL) LIPID PROFILE (03/02/2015 8:23 AM CDT) Cholesterol 160 114 - 200 mg/dL 03/02/2015 8:54 AM CDT [facility] Comment: Total Cholesterol Reference Ranges Desirable: ? <200 ?mg/dL Borderline High: ?? 200-239 mg/dL High: ?>239 ?mg/dL TRIGLYCERIDE 172 10 - 200 mg/dL 03/02/2015 8:54 AM CDT [facility] Comment: ?Triglyceride If patient is non-fasting, the result of the triglyceride is invalid. ?? Triglyceride Reference Ranges ?? Normal: ?10-200 mg/dL ?? Borderline High: ??150-200 mg/dL ?? High: ? 201-499 mg/dL ?? Very High: ? =500 ?mg/dL HDL CHOLESTEROL 28(L) 40 - 60 mg/dL 03/02/2015 8:54 AM CDT [facility] LDL- CALCULATED 98 mg/dL 5 8:54 AM CDT [facility] Comment: LDL Cholesterol Reference Ranges Optimal: ?<100 ? mg/dL Near Optimal: ? 100-129 ??mg/dL Borderline High: ??130-159 ??mg/dL High: ? 160-189 ??mg/dL Very High: ?>189 ? mg/dL 03/02/2015 8:23 AM CDT 03/02/2015 8:23 AM CDT Narrative [facility] - 03/02/2015 8:54 AM CDT Fasting Richardson Graham MD EC CHEMISTRY ORDERAB LES ABN [place], [place] from Last 3 Months or Most Recently Relevant to Health Maintenance Advance Directives For more information, please contact: [phone] * Full Code (Latest Code Status on [...] 1:19 AM 09/24/2011 2:11 PM Care Teams Beverage Specialist Relationship Specialty Start Date End Date Elsewhere, Pcp PCP - General 09/23/16 Brenda Vang, PAAdriaanC [address] [facility] [place] [address] Family Medicine 10/10/15
--- OUTSIDE RECORDS SUMMARY | 2024-04-22 15:41 | XMS_ITS | Clinical Summary ---
Author Organization [place] Address [address] [place] [address] Care Team Providers Care Loan Administrator Name Role Phone Chantal Madison MD [...] Comments Blood Pressure 174/93 10/29/2022 10:25 PM CHEMICAL RECLAMATION EQUIPMENT OPERATOR Pulse 63 10/29/2022 10:25 PM CHEMICAL RECLAMATION EQUIPMENT OPERATOR Temperature 37.1 ??C (98.8 ??F) 10/29/2022 1 0:25 PM CHEMICAL RECLAMATION EQUIPMENT OPERATOR Respiratory Rate 20 10/29/2022 10:2 5 PM CHEMICAL RECLAMATION EQUIPMENT OPERATOR Oxygen Saturation 98% 10/29/2022 10: 25 PM CHEMICAL RECLAMATION EQUIPMENT OPERATOR Inhaled Oxygen Concentration - - Weight 102.1 [...] this topic Medical Devices Implanted Type Area Reprographics Technician Device Identifier Shelf Expiration Date Model / Serial / Lot Imp Prosthesis Penile Titan Std Assembly Kit [id number] Implanted:Qty: 1 on 08/08/2020 by Carmelo Forte MD at [facility] Penile Implant N/A: Penis COLOPLAST 04/18/2025 [id number] / / [id number] Titan [place] Implanted:Qty: 1 on 08/08/2020 by Carmelo Forte MD at [facility] N/A: Penis 05/22/2025 [id number] / / [id number] Titan Cylinder And Pump Implanted:Qty: 1 on 08/08/2020 by Carmelo Forte MD at [facility] N/A: Penis 05/18/2025 [id number] / / [id number] Procedures Procedure Name Priority Date/Time Associated Diagnosis [...] 08/09/2020 2:31 AM CDT Carmelo Forte MD [facility] POCT POINT OF CARE TEST, GLUCOSE from Last 3 Months or Most Recently Relevant to Health Maintenance Advance Directives For more information, please contact: [phone] * Full Code (Latest Code Status on File) Date Activated Date Inactivated Comments 08/08/2020 4:04 PM 08/09/2020 9:29 PM All basic and advanced life-sustaining interventions are performed as appropriate Question Answer Comments Code status determined by: Discussion with joshe nt/ legal decision maker Care Teams Loan Administrator Relationship Specialty Start Date End Date Chantal Madison MD [facility] & [address] [address] PCP - General Family Practice 07/24/20
== END 2024-04-22 10:09 | disposition home or self-care (01) ==
LOC: NFLDREF 15:40
PROVIDERS: PCP Family Medicine; Visit Provider Family Medicine
DX: I10 Essential (primary) hypertension (principal); E11.9 Type 2 diabetes mellitus without complications
CPT/HCPCS: 80048

== ENCOUNTER 2024-07-26 08:27 | Outpatient (CLI) | payer MEDICARE, BC, SELFPAY ==
--- OUTSIDE RECORDS SUMMARY | 2024-07-26 12:29 | XMS_ITS | Referral Summary ---
Author Organization [place] Address [address] [place] [address] Care Team Providers Care Hoeing Row Boss Name Role Phone Chantal Madison MD Primary [...] Comments Blood Pressure 174/93 10/29/2022 10:25 PM GUEST ATTENDANT Pulse 63 10/29/2022 10:25 PM GUEST ATTENDANT Temperature 37.1 ??C (98.8 ??F) 10/29/2022 1 0:25 PM GUEST ATTENDANT Respiratory Rate 20 10/29/2022 10:2 5 PM GUEST ATTENDANT Oxygen Saturation 98% 10/29/2022 10: 25 PM GUEST ATTENDANT Inhaled Oxygen Concentration - - Weight 102.1 kg (225 lb 1.6 oz) 020 11:00 AM CDT Height 177.8 cm (5' 10) 08/08/2020 11: 00 AM CDT Body Mass Index 32.3 08/08/2020 11:00 AM CDT Plan of Treatment Not on file Medical Devices Implanted Type Area Nursery Helper Device Identifier Shelf Expiration Date Model / Serial / Lot Imp Prosthesis Penile Titan Std Assembly Kit [id number] Implanted:Qty: 1 on 08/08/2020 by Carmelo Forte MD at [facility] Penile Implant N/A: Penis COLOPLAST 04/18/2025 [id number] / / [id number] Titan [place] Implanted:Qty: 1 on 08/08/2020 by Carmelo Forte MD at [facility] N/A: Penis 05/22/2025 [id number] / / [id number] Titan Cylinder And Pump Implanted:Qty: 1 on 08/08/2020 by Carmelo Forte MD at [facility] N/A: Penis 05/18/2025 [id number] / / [id number] Procedures Procedure Name Priority Date/Time Associated Diagnosis [...] 08/09/2020 2:31 AM CDT Carmelo Forte MD [facility] POCT POINT OF CARE TEST, GLUCOSE from Last 3 Months or Most Recently Relevant to Health Maintenance Advance Directives For more information, please contact: [phone] * Full Code (Latest Code Status on File) Date Activated Date Inactivated Comments 08/08/2020 4:04 PM 08/09/2020 9:29 PM All basic and advanced life-sustaining interventions are performed as appropriate Question Answer Comments Code status determined by: Discussion with pallavi nt/ legal decision maker Care Teams Hoeing Row Boss Relationship Specialty Start Date End Date Chantal Madison MD [facility] [address] [place] [address] PCP - General Family Practice 07/24/20
--- OUTSIDE RECORDS SUMMARY | 2024-07-26 12:29 | XMS_ITS | Clinical Summary ---
Author Organization [facility] Address [address] [address] Phone Care Team Providers Care Mixer Pigment Name Role Phone Taj Brenda Carter PA-C Unavailable [phone] Elsewhere, Pcp Primary Care Provider Unavailabl e [...] Immunizations Name Administration Dates Next Due Influenza 09/03/2010 Influenza Quad Preservative Free 09/20/2015,01/2014 Influenza Trivalent Preservative Free 09/10/2011 Influenza Trivalent Preservative Free (High Dose ) 09/13/2013 Tdap (7 years and older) 08/27/2008 Varicella [...] Comments Blood Pressure 128/71 12/14/2016 12:13 PM BASEBALL GLOVE STUFFER Pulse 65 12/14/2016 12:13 PM [employer] Temperature 36.8 ??C (98.3 ??F) 12/14/2016 12:[address] Respiratory Rate 18 08/14/2015 1:02 PM [employer]UFFER Oxygen Saturation 94% 12/14/2016 12:13 PM [employer]UFFER Inhaled Oxygen Concentration - - Weight 123.8 kg (273 lb) 12/14/2016 12:13 PM [employer]ALL [employer]OVE STUFFER Height 177.8 cm (5' 10) 12/14/2016 12:13 PM [employer] Body Mass Index 39.17 12/14/2016 12:13 PM [employer] Plan of Treatment Health Maintenance Due Date Last Done Comments CT Colonography 1950 Cologuard 1950 Colonoscopy 1950 Colorectal Cancer Screening 1950 FIT/FOBT 1950 Sigmoidoscopy 1950 Shingrix (Zoster recombinant) vaccine (Standing Order) (1 of 2) 11/12/2012 DIABETIC EYE EXAM 08/02/2015 09/01/2014 Pneumococcal Vaccine: 65+ yrs (Standing Order) (1 of 1 - PCV) 02/07/2016 DIABETES HGB A1C Q6 MONTHS (Standing Order) 07/07/2016 01/05/2016, 09/20/2015, 08/14/2015, Additional history exists DIABETES MICROALBUMIN Q1 YEAR (Standing Order) 07/14/2016 08/14/2015, 08/05/2014, 07/13/2013 DIABETES SERUM CREATININE Q1 YEAR (Standing Order) 01/04/2017 01/05/2016, 09/29/2015, 09/20/2015, Additional history exists TETANUS (Standing Order) 08/27/2018 08/27/2008 DIABETES LIPID PROFILE Q5 YEARS (Standing Order) 03/02/2020 03/02/2015, 08/05/2014, 06/14/2014, Additional history exists COLONOSCOPY Q 10 YRS 10/08/2022 10/08/2012 (Previously completed) COVID-19 Vaccine ( - season) 2024 11/25/2020 Influenza Vaccine Seasonal (Standing Order) (#1) 2024 09/20/2015, 09/15/2014, 09/13/2013, Additional history exists [...] Type 2 diabetes mellitus without complication (HCC) MICROALBUMIN/CREATI NINE RATIO, URINE Routine 08/14/2015 2:00 PM [employer]UFFER Type 2 diabetes mellitus without complication (HCC) LIPID PROFILE Routine 03/02/2015 8:23 AM CDT Type 2 diabetes mellitus without complication (HCC) from Last 3 Months or Most Recently Relevant to Health Maintenance Results * (ABNORMAL) BASIC MET PROF (01/05/2016 8:10 AM CDT) Sodium 141 134 - 143 mEq/L 01/05/2016 1:55 PM CDT [facility] POTASSIUM 4.8 3.4 - 5.1 mEq/L 01/05/2016 1:55 PM CDT [facility] Chloride 108 99 - 110 mEq/L 01/05/2016 1:55 PM T [facility] CO2 25 19 - 29 mEq/L 01/05/2016 1:55 PM CDT [facility] BUN 23 5 - 24 mg/dL 01/05/2016 1:[address] [facility] Creatinine 1.54(H) 0.70 - 1.20 mg/dL 01/05/2016 1:55 PM T [facility] GFR CALC 46(A) 01/05/2016 1:55 PM CDT [facility] Comment:GFR Normal: >60 mL/m in/1.73 m2 Calcium 9.4 8.4 - 10.5 mg/dL 01/05/2016 1:55 PM CDT [facility] ANION GAP 8 3 - 15 01/05/2016 1:55 PM CDT [facility] GLUCOSE 139(H) 70 - 100 mg/dL 01/05/2016 1:55 PM CDT [facility] Comment: Current ADA criteria are ?Normal: 70-99 mg/dL ?Impaired Fasting Glucose: 100-125 mg/dL ?Diabetes Mellitus: at or above 126 mg/dL The diagnosis of diabetes must be confirmed on a subsequent day by measuring FPG, 2-hr PG or random plasma glucose (if symptoms are present). 01/05/2016 8:10 AM CDT 01/05/2016 8:10 AM CDT Richardson Graham MD EC CHEMISTRY ORDERAB LES Performing Organization Address City/[facility] de Phone Number [facility] [address] [place] [address] * (ABNORMAL) A1C(HGB AIC) (01/05/2016 8:10 AM CDT) A1C (HGB AIC) 6.3(H) 4.0 - 6.0 % 01/05/2016 8:46 AM CDT [facility] Est Average Glucose 134 mg/dL 01/05/2016 8:46 AM CDT [facility] Comment: According to ADA guidelines, the estimated average glucose (eAG) will be calculated for all HgbA1c results. 01/05/2016 8:10 AM CDT 01/05/2016 8:10 AM CDT Richadrson Grahma MD EC CHEMISTRY ORDERAB LES ABN Performing Organization Address [facility] Co de Phone Number [facility] [address] * MICROALB,RANDOM (08/14/2015 2:00 PM [employer]UFFER) Urine Microalbumin 2.7 mg/dL 08/14/2015 8:27 PM [employer] [facility] URINE CREATININE 136.4 mg/dL 08/14/20 15 8:27 PM [employer] [facility] Urine Microalbumin/Crea tinine Ratio 20 0 - 29 08/14/2015 8:27 PM [employer] [facility] 08/14/2015 2:00 PM [employer] 08/14/2015 7:38 PM [employer] Karen Nielson APRN, CNP EC URINE OR DERABLES [facility] * (ABNORMAL) LIPID PROFILE (03/02/2015 8:23 AM CDT) Cholesterol 160 114 - 200 mg/dL 03/02/2015 8:54 AM CDT [facility] Comment: Total Cholesterol Reference Ranges Desirable: ? <200 ?mg/dL Borderline High: ?? 200-239 mg/dL High: ?>239 ?mg/dL TRIGLYCERIDE 172 10 - 200 mg/dL 03/02/2015 8:54 AM CDT [facility] Comment: ?Triglyceride If patient is non-fasting, the result of the triglyceride is invalid. ?? Triglyceride Reference Ranges ?? Normal: ?10-200 mg/dL ?? Borderline High: ??150-200 mg/dL ?? High: ? 201-499 mg/dL ?? Very High: ? =500 ?mg/dL HDL CHOLESTEROL 28(L) 40 - 60 mg/dL 03/02/2015 8:54 AM CDT [facility] LDL- CALCULATED 98 mg/dL 5 8:54 AM CDT [facility] Comment: LDL Cholesterol Reference Ranges Optimal: ?<100 ? mg/dL Near Optimal: ? 100-129 ??mg/dL Borderline High: ??130-159 ??mg/dL High: ? 160-189 ??mg/dL Very High: ?>189 ? mg/dL 03/02/2015 8:23 AM CDT 03/02/2015 8:23 AM CDT Narrative [facility] - 03/02/2015 8:54 AM CDT Fasting Richardson Graham MD EC CHEMISTRY ORDERAB LES ABN [facility] [place], [place] from Last 3 Months or Most Recently Relevant to Health Maintenance Advance Directives For more information, please contact: [phone] * Full Code (Latest Code Status on [...] 1:19 AM 09/24/2011 2:11 PM Care Teams Mixer Pigment Relationship Specialty Start Date End Date Elsewhere, Pcp PCP - General 09/23/16 Brenda Vang, LAURA [address] [place] [address] Family Medicine 10/10/15
--- OUTSIDE RECORDS SUMMARY | 2024-07-26 12:29 | XMS_ITS | Clinical Summary ---
Author Organization [facility] Address [place], [place] [address] Care Team Providers Care Stockroom Selector Name Role Phone Chantal [place] MD Primary Care Provider + Allergies Active Allergy Reactions Criticality Noted Date Comments Adhesive Rash 09/15/2012 Cefepime Rash 04/14/2017 Penicillins Anaphylaxis,Itching High 07/08/2016 Rash, swelling, redness Vancomycin Shortness Of Breath,Rash 04/14/2017 Medications Medication Sig Dispensed Refills Start Date End Date Status multivitamin (MVI) tablet Take 1 tablet by mouth once daily. 0 07/08/2016 Active glucosamine-chondroit in-vit c-manganese, [phone] mg, (COSAMIN DS, WITH MANGANESE,) [phone] mg capsule Take 1 capsule by mouth [...] diabetes mellitus 02/04/2015 Benign essential hypertension 09/10/2011 Overview (04/13/2017): Overview: IMO Update 07/23 Resolved Problems Problem [...] 07/08/2012, 08/27/2008 COVID-19 vaccine series ( season) 2024 07/21/2022, 01/15/2022, 08/09/2021, Additional history exists Influenza [...] - 199 mg/dL 07/24/2016 8:30 AM CDT [facility] TRIGLYCERIDES 182(H) <150 mg/dL 07/24/2016 8:30 AM CDT [facility] HDL CHOLESTEROL 31(L) >40 mg/dL 6 8:30 AM CDT [facility] NON-HDL CHOLESTEROL 134 <145 mg/dl 07/24/2016 8:30 AM CDT [facility] CHOL/HDL RATIO 5.32(H) <4.50 07/24/2016 8:30 AM CDT [facility] LDL CHOLESTEROL 98 <=130 mg/dL 07/24/2016 8:30 AM CDT [facility] PATIENT STATUS FASTING 07/24/2016 8:30 AM CDT [facility] Blood BLOOD SPECIMEN / Unknown Venipuncture / Unknown 07/24/2016 7:54 AM CDT 07/24/2016 7:54 AM CDT Jovanni Harrington MD CHEMISTRY [facility] [address] [facility] [place] [address], from Last 3 Months or Most Recently Relevant to Health Maintenance Advance Directives * Full Code (Latest Code Status on File) Date Activated Date Inactivated Comments 04/13/2017 12:22 AM 04/16/2017 12:34 PM Care Teams Stockroom Selector Relationship Specialty Start Date End Date Chantal [place] MD [address] [place] [address] PCP - General Family Practice 04/18/17
--- OUTSIDE RECORDS SUMMARY | 2024-07-26 12:29 | XMS_ITS | Clinical Summary ---
Author Organization [facility] Address [address] [place] [id number] Care Team Providers Care Trap Operator Name Role Phone Chantal [place] MD [...] Comments Blood Pressure 174/93 10/29/2022 10:25 PM PROFESSOR OF ASTRONOMY Pulse 63 10/29/2022 10:25 PM PROFESSOR OF ASTRONOMY Temperature 37.1 ??C (98.8 ??F) 10/29/2022 1 0:25 PM PROFESSOR OF ASTRONOMY Respiratory Rate 20 10/29/2022 10:2 5 PM PROFESSOR OF ASTRONOMY Oxygen Saturation 98% 10/29/2022 10: 25 PM PROFESSOR OF ASTRONOMY Inhaled Oxygen Concentration - - Weight 102.1 [...] CANCER SCREENING 1961 HEPATITIS C SCREENING 1969 FALL RISK ASSESSMENT 02/07/2016 MEDICARE ANNUAL WELLNESS VISIT 09/20/2016 09/20/2015, 09/15/2014, 09/13/2013, Additional history exists GLUCOSE 08/09/2023 08/09/2020, 07/14, 08/08/2020, Additional history exists PHQ-2 (once per calendar year) 2023 COVID-19 Vaccine ( season) 2024 07/21/2022, 01/15/2022, 08/09/2021, Additional history exists INFLUENZA VACCINE (#1) 2024 , 07/23/2021, 07/18/2020, Additional history exists RSV VACCINE (1 - 1-dose 75+ series) 2026 DTAP/TDAP/TD IMMUNIZATION (4 - Td or Tdap) [...] this topic Medical Devices Implanted Type Area Valve Repairer Reclamation Device Identifier Shelf Expiration Date Model / Serial / Lot Imp Prosthesis Penile Titan Std Assembly Kit [id number] Implanted:Qty: 1 on 08/08/2020 by Carmelo Forte MD at [facility] Penile Implant N/A: Penis COLOPLAST 04/18/2025 [id number] / / [id number] Titan Tenaha Implanted:Qty: 1 on 08/08/2020 by Carmelo Forte MD at [facility] N/A: Penis 05/22/2025 [id number] / / [id number] Titan Cylinder And Pump Implanted:Qty: 1 on 08/08/2020 by Carmelo Forte MD at [facility] N/A: Penis 05/18/2025 [id number] / / [id number] Procedures Procedure Name Priority Date/Time Associated Diagnosis [...] 08/09/2020 2:31 AM CDT Carmelo Forte MD LAB - BEAKER POCT POINT OF CARE TEST, GLUCOSE from Last 3 Months or Most Recently Relevant to Health Maintenance Advance Directives For more information, please contact: [phone] * Full Code (Latest Code Status on File) Date Activated Date Inactivated Comments 08/08/2020 4:04 PM 08/09/2020 9:29 PM All basic and advanced life-sustaining interventions are performed as appropriate Question Answer Comments Code status determined by: Discussion with patie nt/ legal decision maker Care Teams Trap Operator Relationship Specialty Start Date End Date Chantal [place] MD [facility] [place] [address] PCP - General Family Practice 07/24/20
== END 2024-07-26 08:28 | disposition home or self-care (01) ==
PROVIDERS: PCP Family Medicine; Referring Provider Family Medicine; Visit Provider Family Medicine
DX: I10 Essential (primary) hypertension (principal); E11.9 Type 2 diabetes mellitus without complications
CPT/HCPCS: 80053

== ENCOUNTER 2024-11-15 08:25 | Outpatient (CLI) | payer MEDICARE, BC, SELFPAY | END 2024-11-15 08:26 | disposition home or self-care (01) | LOC: NFLDREF 11-17 08:16 | PROVIDERS: PCP Family Medicine; Referring Provider Family Medicine; Visit Provider Family Medicine | DX: I10 Essential (primary) hypertension (principal); E11.9 Type 2 diabetes mellitus without complications | CPT/HCPCS: 80053 ==

== ENCOUNTER 2025-04-18 08:25 | Outpatient (CLI) | payer MEDICARE, BC, SELFPAY | END 2025-04-18 08:26 | disposition home or self-care (01) | LOC: NFLDREF 04-20 00:55 | PROVIDERS: PCP Family Medicine; Referring Provider Family Medicine; Visit Provider Family Medicine | DX: E78.5 Hyperlipidemia, unspecified (principal); E11.9 Type 2 diabetes mellitus without complications; I10 Essential (primary) hypertension; Z12.5 Encounter for screening for malignant neoplasm of prostate; Z79.899 Other long term (current) drug therapy | CPT/HCPCS: 80053; 80061; 82043; 82570; 82607; G0103 ==

== ENCOUNTER 2025-07-12 11:02 | Outpatient (CLI) | payer MEDICARE, BC, SELFPAY | END 2025-07-12 11:03 | disposition home or self-care (01) | LOC: NFLDREF 11:07 | PROVIDERS: PCP Family Medicine; Visit Provider Family Medicine | DX: E11.9 Type 2 diabetes mellitus without complications (principal); I10 Essential (primary) hypertension; R42 Dizziness and giddiness | CPT/HCPCS: 80048 ==